=== PATIENT | male | born 1965 | race Caucasian/White ===

== ENCOUNTER 2018-06-23 17:10 | Inpatient (IN) | payer BC, OTHER ==
--- OUTSIDE RECORDS SUMMARY | 2018-06-23 17:14 | XMS REPORT | Continuity of Care Document ---
:1965 Author Organization Interface Problems Problem Status Onset Classification Date Comments Source Date Reported UNK Active 12/15/19 [facility] 18 K31.84 Active 12/13/19 [facility] 18 DX: Active 11/30/19 [facility] K21.9=GASTRO-ESOP 17 HAGEAL REFLUX DISEA Benign Active Problem 12/09/2016 [facility] hypertension Diabetes Active Problem 12/09/2016 [facility] Hiatal hernia Active Problem 12/09/2016 [facility] with GERD Hypothyroid Active Problem 12/09/2016 [facility] Rheumatoid Active Problem 12/09/2016 [facility] arthritis Final: 12/09/2016 [facility] Diaphragmatic hernia without obstruction or gangrene DIAPHRAGMATIC Active [facility] HERNIA WITHOUT OBSTRUCTION EPIGASTRIC PAIN Active [facility] GASTROPARESIS Active [facility] Medications Medication Details Route Status Patient Ordering Order Source Instructions Provider Date Morphine 4 mg, 1 mL, No Longer Route: IVP, Active 2016 [facility] Drug form: SOLN, Q4H, Dosing Weight 107.273, kg, PRN Pain Score 4-6, Start date: 12/05/16 10:42:00 CDT, Duration: 30 day, Stop date: 01/04/17 10:41:00 CDTNotes: (Same as:MORPhine Sulfate) valsartan 160 mg, 1 No Longer tab, Route: Active 2016 [facility] PO, Drug form: TAB, Daily, Dosing Weight 107.273, kg, Start date: 12/05/16 9:00:00 CDT, Duration: 30 day, Stop date: 01/03/17 9:00:00 CDTNotes: Same as Diovan pantoprazole 40 mg, 1 No Longer tab, Route: Active 2016 [facility] PO, Drug form: ECTAB, Daily, Dosing Weight 107.273, kg, Start date: 12/05/16 9:00:00 CDT, Duration: 30 day, Stop date: 01/03/17 9:00:00 CDTNotes: Tablet should not be chewed or crushed. (Same as: Protonix) Metoclopramide 5 5 mg, 1 tab, No Longer MG Oral Tablet Route: PO, Active 2016 [facility] Drug form: TAB, TID, Dosing Weight 107.273, kg, Start date: 12/05/16 9:00:00 CDT, Duration: 30 day, Stop date: 01/03/17 17:00:00 CDTNotes: (Same as: Reglan) Take 30 min before meals heparin 5,000 unit, No Longer 1 mL, Route: Active 2016 [facility] SUB-Q, Drug form: INJ, Q12H, Dosing Weight 106.563, kg, Start date: 12/05/16 9:00:00 CDT, Duration: 30 day, Stop date: 01/03/17 21:00:00 CDTNotes: porcine heparin gabapentin 800 800 mg, 2 No Longer MG Oral Tablet cap, Route: Active 2016 [facility] PO, Drug form: CAP, TID, Dosing Weight 107.273, kg, Start date: 12/05/16 9:00:00 CDT, Duration: 30 day, Stop date: 01/03/17 17:00:00 CDTNotes: (Same as: Neurontin) Folic Acid 1 mg, 1 tab, No Longer Route: PO, Active 2016 [facility] Drug form: TAB, Daily, Dosing Weight 107.273, kg, Start date: 12/05/16 9:00:00 CDT, Duration: 30 day, Stop date: 01/03/17 9:00:00 CDTNotes: (Same as: Folvite) carvedilol 25 mg, 2 No Longer tab, Route: Active 2016 [facility] PO, Drug form: TAB, BID, Dosing Weight 107.273, kg, Start date: 12/05/16 9:00:00 CDT, Duration: 30 day, Stop date: 01/03/17 17:00:00 CDTNotes: Give with food. (Same As: Coreg) Albuterol 0.833 3 ml, Route: No Longer MG/ML / NEB, Drug Active 2016 [facility] Ipratropium Form: SOLN, [place] 0.167 Dosing MG/ML Inhalant Weight Solution 107.273, kg, RQ6H, Start date: 12/05/16 8:00:00 CDT, Duration: 30 day, Stop date: 01/04/17 2:00:00 CDTNotes: (Same as: Duoneb) Acetaminophen 24 15 mL, No Longer MG/ML / Codeine Route: PO, Active 2016 [facility] Phosphate 2.4 Drug Form: MG/ML Oral LIQ, Dosing Solution Weight 107.273, kg, Q4H, PRN Pain Score 4-6, Start date: 12/05/16 7:06:00 CDT, Duration: 30 day, Stop date: 01/04/17 7:05:00 CDTNotes: (acetaminoph en-codeine 120-12 mg/5 ml oral liq) Do not exceed 4gm/day of acetaminophe n. (Same as: Tylenol w/Codeine) Thyroxine 200 No Longer microgram, 1 Active 2016 [facility] tab, Route: PO, Drug form: TAB, Daily, Dosing Weight 107.273, kg, Start date: 12/05/16 6:30:00 CDT, Duration: 30 day, Stop date: 01/03/17 6:30:00 CDTNotes: Take 1 hour before or 2 hours after meal; Enteral feeds may interefere with the absorption of this medication. (Same as: Levothroid) Hydralazine 25 mg, 1 No Longer Hydrochloride 25 tab, Route: Active 2016 [facility] Oral Tablet PO, Drug form: TAB, BID, Dosing Weight 107.273, kg, Start date: 12/05/16 5:10:00 CDT, Duration: 30 day, Stop date: 01/03/17 17:00:00 CDTNotes: (Same as: Apresoline) May interfere w/enteral feedings Take With Food. Cefoxitin 2 gm, Route: No Longer IVPB, Q8H, Active 2016 [facility] Dosing Weight 106.563, kg, Start date: 12/04/16 21:00:00 CDT, Duration: 1 day, Stop date: 12/05/16 13:00:00 CDT, ABX Indication: Surgical ProphylaxisN otes: (Same As: Mefoxin) MEDICATION WASTE Product Size: 2000 mg Product Wasted: ___ mg rosuvastatin 10 mg, 2 No Longer tab, Route: Active 2016 [facility] PO, Drug form: TAB, Bedtime, Dosing Weight 107.273, kg, Start date: 12/04/16 21:00:00 CDT, Duration: 30 day, Stop date: 01/02/17 21:00:00 CDTNotes: Same as Crestor Morphine 4 mg, 1 mL, No Longer Route: IVP, Active 2016 [facility] Drug form: SOLN, Q3H, Dosing Weight 106.563, kg, PRN Pain Score 7-10, Start date: 12/04/16 19:56:00 CDT, Duration: 30 day, Stop date: 01/03/17 19:55:00 CDTNotes: (Same as:MORPhine Sulfate) D5W 1/2NS 1,000 1,000 mL, No Longer mL Rate: 75 Active 2016 [facility] ml/hr, Infuse over: 13.3 hr, Route: IV, Dosing Weight 107.273 kg, Total Volume: 1,000, Start date: 12/04/16 19:55:00 CDT, Duration: 30 day, Stop date: 01/03/17 19:54:00 CDT Dextrose 50% 25 gm, 50 No Longer Syringe mL, Route: Active 2016 [facility] IVP, Drug Form: INJ, Dosing Weight 107.273, kg, Q4H, PRN Other -See Comment, Start date: 12/04/16 18:14:00 CDT, Duration: 30 day, Stop date: 01/03/17 18:13:00 CDT sodium chloride 1,000 mL, Inactive 0.9% 1000 ml INJ Rate: 75 2016 [facility] 1,000 mL ml/hr, Infuse over: 13.3 hr, Route: IV, Dosing Weight 106.563 kg, Total Volume: 1,000, Start date: 12/04/16 18:04:00 CDT, Duration: 30 day, Stop date: 01/03/17 18:03:00 CDT Magnesium 2 gm, 50 mL, Inactive Sulfate Route: IVPB, 2016 Drug form: INJ, ONCE, Dosing Weight 106.563, kg, Total dose=2 gm, Start date: 12/04/16 16:45:00 CDT, Duration: 1 doses or times, Stop date: 12/04/16 16:45:00 CDTNotes: WASTE: F/P - Sink; E - [employer] Morphine 4 mg, 1 mL, Inactive Route: IVP, 2016 [facility] Drug form: SOLN, Q4H, Dosing Weight 106.563, kg, PRN Pain Score 7-10, Start date: 12/04/16 16:42:00 CDT, Duration: 30 day, Stop date: 01/03/17 16:41:00 CDTNotes: (Same as:MORPhine Sulfate) midazolam (ANES) Route: IV, Inactive Drug form: 2016 [facility] SOLN, ONCE, Stop date: 12/04/16 15:32:00 CDT hydromorphone Route: IV, Inactive (ANES) Drug form: 2016 [facility] INJ, ONCE, Stop date: 12/04/16 15:11:00 CDT glycopyrrolate Route: IV, Inactive (ANES) Drug form: 2016 [facility] INJ, ONCE, Stop date: 12/04/16 15:11:00 CDT neostigmine Route: IV, Inactive (ANES) Drug form: 2016 [facility] INJ, ONCE, Stop date: 12/04/16 15:11:00 CDT acetaminophen Route: IV, Inactive (ANES) Drug form: 2016 [facility] INJ, ONCE, Stop date: 12/04/16 14:51:00 CDT Albuterol 0.833 3 mL, Route: Inactive MG/ML / NEB, Dosing 2016 [facility] Ipratropium Weight [place] 0.167 106.563, kg, MG/ML Inhalant ONCE, STAT, Solution Start date: 12/04/16 14:26:00 CDT, Stop date: 12/04/16 14:26:00 CDT Calcium Chloride 1,000 mL, Inactive 0.0014 MEQ/ML / Rate: 25 2016 [facility] Potassium ml/hr, Chloride 0.004 Infuse over: MEQ/ML / Sodium 40 hr, Chloride 0.103 Route: IV, MEQ/ML / Sodium Dosing Lactate 0.028 Weight MEQ/ML 106.563 kg, Injectable Total Solution Volume: 1,000, Start date: 12/04/16 14:26:00 CDT, Duration: 30 day, Stop date: 01/03/17 14:25:00 CDT metoclopramide Route: IV, Inactive (ANES) Drug form: 2016 [facility] INJ, ONCE, Stop date: 12/04/16 13:37:00 CDT propofol (ANES) Route: IV, Inactive Drug form: 2016 [facility] INJ, ONCE, Stop date: 12/04/16 13:37:00 CDT fentaNYL (ANES) Route: IV, Inactive Drug form: 2016 [facility] INJ, ONCE, Stop date: 12/04/16 13:37:00 CDT midazolam (ANES) Route: IV, Inactive Drug form: 2016 [facility] SOLN, ONCE, Stop date: 12/04/16 13:37:00 CDT ondansetron Route: IV, Inactive (ANES) Drug form: 2016 [facility] INJ, ONCE, Stop date: 12/04/16 13:01:00 CDT cefOXitin (ANES) Route: IV, Inactive Drug form: 2016 [facility] INJ, ONCE, Stop date: 12/04/16 13:01:00 CDT lidocaine (ANES) Route: IV, Inactive Drug form: 2016 [facility] INJ, ONCE, Stop date: 12/04/16 13:01:00 CDT rocuronium Route: IV, Inactive (ANES) Drug form: 2016 [facility] INJ, ONCE, Stop date: 12/04/16 13:01:00 CDT sodium chloride Route: IV, Inactive 0.9% 1000 ml INJ Total 2016 [facility] (ANES) Volume: 1,000, Start date: 12/04/16 12:40:00 CDT, Stop date: 12/04/16 13:40:00 CDT LR 1000 mL INJ Route: IV, Inactive (ANES) Total 2016 [facility] Volume: 1,000, Start date: 12/04/16 12:26:00 CDT, Stop date: 12/04/16 13:26:00 CDT Insulin regular 5 unit, Inactive Route: IVP, 2016 [facility] ONCE, Dosing Weight 106.563, kg, Start date: 12/04/16 11:56:00 CDT, Stop date: 12/04/16 11:56:00 CDT Insulin regular 5 unit, Inactive Route: IVP, 2016 [facility] ONCE, Dosing Weight 106.563, kg, Start date: 12/04/16 11:19:00 CDT, Stop date: 12/04/16 11:19:00 CDT heparin sodium, 5,000 unit, Inactive porcine 2500 Route: 2016 UNT/ML SUB-Q, Drug Injectable form: INJ, Solution PRE OP, Dosing Weight 106.563, kg, Start date: 12/04/16 11:00:00 CDT 3 ML Insulin 5 unit, Active Lispro 100 SUB-Q, 2016 UNT/ML Pen TID-Before Injector Meals, # 3 [Humalog] mL, 0 Refill(s) valsartan 320 mg 160 mg=0.5 Active oral tablet tab, PO, 2016 Daily, # 30 tab, 0 Refill(s) Hydralazine 25 mg=1 tab, Active Hydrochloride 25 PO, BID, # 2016 [facility] Oral Tablet 90 tab, 3 Refill(s) carvedilol 25 mg 25 mg=1 tab, Active oral tablet PO, BID, # 2016 180 tab, 0 Refill(s) pantoprazole 40 40 mg=1 tab, Active mg oral enteric PO, Daily, # 2016 [facility] coated tablet 30 tab, 0 Refill(s) Metoclopramide 5 5 mg=1 tab, Active MG Oral Tablet PO, TID, # 2016 28 tab, 0 Refill(s) levothyroxine 200 Active 200 mcg (0.2 mg) microgram=1 2016 [facility] oral tablet tab, PO, Daily, # 30 tab, 0 Refill(s) rosuvastatin 10 10 mg=1 tab, Active mg oral tablet PO, Bedtime, 2016 # 30 tab, 0 Refill(s) ondansetron 4 mg 4 mg=1 tab, Active 11/30/ [facility] oral tablet PO, TID, # 3 2016 tab, 0 Refill(s) Folic Acid 1 MG 1 mg=1 tab, Active 11/30/ [facility] Oral Tablet PO, Daily, # 2017 30 tab, 0 Refill(s) gabapentin 800 800 mg=1 Active 11/30/ [facility] MG Oral Tablet tab, PO, 2016 TID, # 270 tab, 0 Refill(s) methotrexate 2.5 15 mg=6 tab, Active 11/30/ [facility] mg oral tablet PO, Q7D, # 2 2016 tab, 0 Refill(s) etanercept 25 mg 25 mg=1 ea, Active 11/30/ [facility] subcutaneous SUB-Q, 5X 2016 [facility] injection Day, # 12 ea, 0 Refill(s) Allergies, Adverse Reactions, Alerts Substance Category Reaction Severity Reaction Status Date Comments Source type Reported sulfa drugs Assertion Drug Active allergy [facility] Immunizations Immunization Date Given Site Status Last Updated Comments Source Results Order Name Results Value Reference Date Interpretation Comments Source Range Stomach Stomach Patient Name: DARCY SOTO 12/17 - emptying emptying [facility] - [facility] : 1965; Age: 52 years y/o Male MR: [id number] Read by: Christiano Rojas MD Dictated Date/time: 12/17/17 13:07 Electronically Signed by: Christiano Rojas MD 12/17/17 13:12 FINAL REPORT Study: Stomach emptying [facility] 12/17/2017 8:14 AM CDT Ordering Physician: Jordyn Fletcher MD Clinical Indication: - nausea with vomiting; Comparison: None Nuclear medicine gastric emptying study was performed. Oral administration 1 mCi technetium 99m sulfur colloid in eggs. Anterior nuclear imaging of the upper abdomen was performed for 4 hours post oral intake of radiotracer. The time/activity curve of gastric activity is entirely flat over 4 hours. Only minimal small bowel activity is visualized on the nuclear images during the observation period. IMPRESSION: Severely delayed gastric emptying. SL: [id number] CHEM PANEL eGFR 102 12/06 Result Comment: The eGFR is calculated using the CKD-EPI formula. In most young, healthy individuals the eGFR will be >90 mL/ min/1.73m2. The eGFR declines with age. An eGFR of 60-89 may be normal in [facility] mL/min/1.7 /2017 some populations, particularly the elderly, for whom the CKD-EPI formula has not been extensively validated. Use of the eGFR is not recommended in the following populations: [facility] 3m2 Individuals with unstable creatinine concentrations, including patients and those with serious co-morbid conditions. Patients with extremes in muscle mass or diet. The data above are obtained from the National Kidney Disease Education Program (NKDEP) which additionally recommends that when the eGFR is used in patients with extremes of body mass index for purposes of drug dosing, the eGFR should be multiplied by the estimated BMI. CHEM PANEL Bili Total 2.1 mg/dL 0.2 - 1.3 12/06 [facility] CHEM PANEL A/G Ratio 0.9 0.7 - 1.6 12/06 [facility] CHEM PANEL Alk Phos 77 unit/L 39 - 136 12/06 [facility] CHEM PANEL AST 39 unit/L 0 - 37 12/06 [facility] CHEM PANEL ALT 52 unit/L 0 - 65 12/06 [facility] CHEM PANEL Albumin Lvl 3.1 g/dL 3.5 - 5.0 12/06 [facility] CHEM PANEL Globulin 3.6 g/dL 2.7 - 4.2 12/06 [facility] CHEM PANEL Total 6.7 g/dL 6.4 - 8.4 12/06 [facility] CHEM PANEL B/C Ratio 16 6 - 25 12/06 [facility] CHEM PANEL AGAP 11.9 meq/L 10.0 - 12/06 [facility] 20.0 [facility] CHEM PANEL Potassium 3.9 meq/L 3.5 - 5.1 12/06 Lvl [facility] CHEM PANEL CO2 27 meq/L 24 - 32 12/06 [facility] CHEM PANEL Calcium Lvl 8.3 mg/dL 8.5 - 10.5 12/06 [facility] CHEM PANEL Glucose Lvl 262 mg/dL 70 - 99 12/06 [facility] CHEM PANEL BUN 13 mg/dL 7 - 22 12/06 [facility] CHEM PANEL Chloride Lvl 99 meq/L 95 - 109 12/06 [facility] CHEM PANEL Sodium Lvl 134 meq/L 135 - 145 12/06 [facility] CHEM PANEL Creatinine 0.83 mg/dL 0.50 - 12/06 [facility] Lvl 1.40 /2016 [facility] HEMATOLOGY MPV 8.1 fL 7.4 - 10.4 12/06 /2016 [facility] HEMATOLOGY Platelet 159 K/CMM 133 - 450 12/06 [facility] HEMATOLOGY RDW 13.7 % 11.5 - 12/06 [facility] 14.5 /2016 [facility] HEMATOLOGY RBC 4.17 M/CMM 4.70 - 12/06 [facility] 6.10 /2016 [facility] HEMATOLOGY WBC 10.2 K/CMM 3.7 - 10.4 12/06 [facility] HEMATOLOGY Hgb 13.1 g/dL 14.0 - 12/06 [facility] 18.0 /2016 [facility] HEMATOLOGY MCHC 34.9 g/dL 32.0 - 12/06 [facility] 36.0 /2016 [facility] MCH 31.5 pg 27.0 - 12/06 [facility] 31.0 [facility] HEMATOLOGY MCV 90.2 fL 80.0 - 12/06 [facility] 94.0 /2016 [facility] HEMATOLOGY Hct 37.6 % 42.0 - 12/06 MH 54.0 /2016 [facility] HEMATOLOGY Segs-Bands # 7.0 K/CMM 1.5 - 8.1 12/06 /2016 [facility] HEMATOLOGY Lymphocytes 1.9 K/CMM 1.0 - 5.5 12/06 MH # /2016 [facility] HEMATOLOGY Monocytes # 1.2 K/CMM 0.0 - 0.8 12/06 [facility] HEMATOLOGY Eosinophils 0.1 K/CMM 0.0 - 0.5 12/06 [facility] # /2016 [facility] HEMATOLOGY Basophils 0.3 % 0.0 - 1.0 12/06 [facility] HEMATOLOGY Eosinophils 0.6 % 0.0 - 4.0 12/06 [facility] HEMATOLOGY Monocytes 12.2 % 2.0 - 12.0 12/06 [facility] HEMATOLOGY Lymphocytes 18.4 % 20.0 - 12/06 [facility] 40.0 /2016 [facility] HEMATOLOGY Segs 68.5 % 45.0 - 12/06 75.0 [facility] Chest Chest 1view Portable chest: Mild bilateral subsegmental atelectasis is unchanged compared to the previous day. The lungs and pleural spaces are otherwise clear. There are no other new findings. 12/06 - 1view DX DX /2016 - [facility] [id number] Read by: Rojelio Finnegan MD Dictated Date/time: 12/06/16 07:47 Electronically Signed by: Rojelio Finnegan MD 12/06/16 07:48 FINAL REPORT CHEM PANEL A/G Ratio 0.9 0.7 - 1.6 12/05 [facility] CHEM PANEL Globulin 3.6 g/dL 2.7 - 4.2 12/05 [facility] CHEM PANEL B/C Ratio 13 6 - 25 12/05 [facility] CHEM PANEL AGAP 8.9 meq/L 10.0 - 12/05 [facility] 20.0 [facility] CHEM PANEL eGFR 70 12/05 Result Comment: The eGFR is calculated using the CKD-EPI formula. In most young, healthy individuals the eGFR will be >90 mL/ min/1.73m2. The eGFR declines with age. An eGFR of 60-89 may be normal in mL/min/1.7 /2016 some populations, particularly the elderly, for whom the CKD-EPI formula has not been extensively validated. Use of the eGFR is not recommended in the following populations: [facility] 3m2 Individuals with unstable creatinine concentrations, including patients and those with serious co-morbid conditions. Patients with extremes in muscle mass or diet. The data above are obtained from the National Kidney Disease Education Program (NKDEP) which additionally recommends that when the eGFR is used in patients with extremes of body mass index for purposes of drug dosing, the eGFR should be multiplied by the estimated BMI. CHEM PANEL AST 36 unit/L 0 - 37 12/05 [facility] CHEM PANEL Alk Phos 83 unit/L 39 - 136 12/05 [facility] CHEM PANEL ALT 38 unit/L 0 - 65 12/05 [facility] CHEM PANEL Total 6.7 g/dL 6.4 - 8.4 12/05 [facility] CHEM PANEL Calcium Lvl 7.9 mg/dL 8.5 - 10.5 12/05 [facility] CHEM PANEL Albumin Lvl 3.1 g/dL 3.5 - 5.0 12/05 [facility] CHEM PANEL Bili Total 1.3 mg/dL 0.2 - 1.3 12/05 [facility] CHEM PANEL Sodium Lvl 138 meq/L 135 - 145 12/05 [facility] CHEM PANEL Potassium 3.9 meq/L 3.5 - 5.1 12/05 [facility] CHEM PANEL CO2 29 meq/L 24 - 32 12/05 [facility] CHEM PANEL Chloride Lvl 104 meq/L 95 - 109 12/05 [facility] CHEM PANEL Glucose Lvl 119 mg/dL 70 - 99 12/05 [facility] CHEM PANEL Creatinine 1.20 mg/dL 0.50 - 12/05 [facility] Lvl 1.40 /2016 [facility] CHEM PANEL BUN 16 mg/dL 7 - 22 12/05 [facility] HEMATOLOGY MCV 91.6 fL 80.0 - 12/05 MH 94.0 /2016 [facility] HEMATOLOGY MCH 31.1 pg 27.0 - 12/05 MH 31.0 [facility] HEMATOLOGY RDW 14.0 % 11.5 - 12/05 MH 14.5 [facility] HEMATOLOGY MCHC 34.0 g/dL 32.0 - 12/05 [facility] 36.0 /2016 [facility] HEMATOLOGY MPV 8.4 fL 7.4 - 10.4 12/05 [facility] HEMATOLOGY Hgb 13.7 g/dL 14.0 - 12/05 MH 18.0 [facility] HEMATOLOGY RBC 4.41 M/CMM 4.70 - 12/05 MH 6.10 [facility] HEMATOLOGY Hct 40.4 % 42.0 - 12/05 [facility] 54.0 /2016 [facility] HEMATOLOGY WBC 9.1 K/CMM 3.7 - 10.4 12/05 [facility] HEMATOLOGY Platelet 165 K/CMM 133 - 450 12/05 [facility] HEMATOLOGY Lymphocytes 17.8 % 20.0 - 12/05 MH 40.0 [facility] HEMATOLOGY Segs 68.7 % 45.0 - 12/05 MH 75.0 [facility] HEMATOLOGY Segs-Bands # 6.3 K/CMM 1.5 - 8.1 12/05 [facility] HEMATOLOGY Monocytes 11.9 % 2.0 - 12.0 12/05 [facility] HEMATOLOGY Eosinophils 1.2 % 0.0 - 4.0 12/05 [facility] HEMATOLOGY Basophils 0.4 % 0.0 - 1.0 12/05 [facility] HEMATOLOGY Eosinophils 0.1 K/CMM 0.0 - 0.5 12/05 [facility] HEMATOLOGY Monocytes # 1.1 K/CMM 0.0 - 0.8 12/05 [facility] HEMATOLOGY Lymphocytes 1.6 K/CMM 1.0 - 5.5 12/05 /2016 [facility] Chest Chest 1view Patient Name: DARCY SOTO 12/05 - 1view DX DX /2016 - [facility] : 1965; Age: 51 years Male MR: [id number] Read by: Adrián Meza MD Dictated Date/time: 12/05/16 12:35 Electronically Signed by: Adrián Meza MD 12/05/16 12:36 FINAL REPORT Study: Chest 1view DX Order Time: 12/05/2016 5:00 AM CDT Clinical Indication: - post op. COMPARISON: November 2016 x-rays. FINDINGS: Views: 1 LUNGS: There is normal lung volume. Right perihilar and infrahilar atelectasis. Left lower lobe atelectasis. Small left effusion. There is no pneumothorax. The pulmonary vasculature is normal. MEDIASTINUM: The cardiac silhouette is enlarged. The trachea is midline. BONES: There are no clinically significant osseous abnormalities noted. IMPRESSION: Right perihilar, left lower lobe atelectasis. SL: [id number] CHEM PANEL Magnesium 1.8 mg/dL 1.8 - 2.4 12/04 [facility] CHEM PANEL eGFR 63 12/04 Result Comment: The eGFR is calculated using the CKD-EPI formula. In most young, healthy individuals the eGFR will be >90 mL/ min/1.73m2. The eGFR declines with age. An eGFR of 60-89 may be normal in mL/min/1.2017 some populations, particularly the elderly, for whom the CKD-EPI formula has not been extensively validated. Use of the eGFR is not recommended in the following populations: [facility] 3m2 Individuals with unstable creatinine concentrations, including patients and those with serious co-morbid conditions. Patients with extremes in muscle mass or diet. The data above are obtained from the National Kidney Disease Education Program (NKDEP) which additionally recommends that when the eGFR is used in patients with extremes of body mass index for purposes of drug dosing, the eGFR should be multiplied by the estimated BMI. CHEM PANEL Chloride Lvl 106 meq/L 95 - 109 12/04 [facility] CHEM PANEL Sodium Lvl 138 meq/L 135 - 145 12/04 [facility] CHEM PANEL Potassium 3.9 meq/L 3.5 - 5.1 12/04 [facility] CHEM PANEL CO2 27 meq/L 24 - 32 12/04 [facility] CHEM PANEL Calcium Lvl 7.8 mg/dL 8.5 - 10.5 12/04 [facility] CHEM PANEL BUN 16 mg/dL 7 - 22 12/04 [facility] CHEM PANEL Creatinine 1.30 mg/dL 0.50 - 12/04 [facility] Lvl 1.40 /2016 [facility] CHEM PANEL Glucose Lvl 103 mg/dL 70 - 99 12/04 [facility] CHEM PANEL AGAP 8.9 meq/L 10.0 - 12/04 20.0 [facility] HEMATOLOGY Basophils # 0.1 K/CMM 0.0 - 0.2 12/04 [facility] HEMATOLOGY Eosinophils 1.2 % 0.0 - 4.0 12/04 [facility] HEMATOLOGY Monocytes 11.1 % 2.0 - 12.0 12/04 [facility] HEMATOLOGY Lymphocytes 23.6 % 20.0 - 12/04 40.0 [facility] HEMATOLOGY Segs-Bands # 5.1 K/CMM 1.5 - 8.1 12/04 [facility] HEMATOLOGY Monocytes # 0.9 K/CMM 0.0 - 0.8 12/04 [facility] HEMATOLOGY Lymphocytes 1.9 K/CMM 1.0 - 5.5 12/04 [facility] HEMATOLOGY Eosinophils 0.1 K/CMM 0.0 - 0.5 12/04 [facility] HEMATOLOGY Basophils 0.8 % 0.0 - 1.0 12/04 [facility] HEMATOLOGY Segs 63.3 % 45.0 - 12/04 75.0 [facility] HEMATOLOGY MCHC 33.7 g/dL 32.0 - 12/04 MH 36.0 [facility] HEMATOLOGY MPV 7.8 fL 7.4 - 10.4 12/04 [facility] HEMATOLOGY Platelet 182 K/CMM 133 - 450 12/04 [facility] HEMATOLOGY RDW 13.8 % 11.5 - 12/04 MH 14. [facility] HEMATOLOGY MCH 31.2 pg 27.0 - 12/04 31.0 [facility] HEMATOLOGY MCV 92.5 fL 80.0 - 12/04 94.0 [facility] HEMATOLOGY Hgb 12.9 g/dL 14.0 - 12/04 18.0 [facility] HEMATOLOGY Hct 38.4 % 42.0 - 12/04 MH 54.0 [facility] HEMATOLOGY RBC 4.15 M/CMM 4.70 - 12/04 6.10 [facility] HEMATOLOGY WBC 8.1 K/CMM 3.7 - 10.4 12/04 [facility] Chest Chest 1view Study: Chest 1view DX portable 12/04/2016 1539 hours - 1view DX DX /2016 - [facility] Clinical Indication: Shortness of Breath - post-op; Read by: Sherwin Adkins MD Dictated Date/time: 12/04/16 16:13 Comparison: Chest 11/30/2016 Electronically Signed by: Sherwin Adkins MD 12/04/16 16:14 FINAL REPORT FINDINGS: Image quality is compromised by the large patient size. Image projection is lordotic. Nasogastric tube terminates in the proximal stomach. The cardiac silhouette is top normal in size. The lungs are well-expanded. No infiltrate, vascular congestion or pleural effusion is seen. IMPRESSION: No acute abnormality. SL: [id number] BLOOD BANK ABO/Rh O POS 11/30 RESULTS /2016 [facility] BLOOD BANK Antibody Negative 11/30 RESULTS Scrn /2016 [facility] (11/30/16 9:13 AM) CHEM PANEL A/G Ratio 1.0 0.7 - 1.6 11/30 [facility] CHEM PANEL Globulin 3.7 g/dL 2.7 - 4.2 11/30 [facility] CHEM PANEL B/C Ratio 15 6 - 25 11/30 [facility] CHEM PANEL Bili Total 0.9 mg/dL 0.2 - 1.3 11/30 [facility] CHEM PANEL Albumin Lvl 3.7 g/dL 3.5 - 5.0 11/30 [facility] CHEM PANEL ALT 29 unit/L 0 - 65 11/30 [facility] CHEM PANEL AST 14 unit/L 0 - 37 11/30 [facility] CHEM PANEL Alk Phos 78 unit/L 39 - 136 11/30 [facility] CHEM PANEL Total 7.4 g/dL 6.4 - 8.4 11/30 [facility] HEMATOLOGY PTT 29.2 s 22.9 - 11/30 MH 35.8 [facility] HEMATOLOGY PT 13.0 s 12.0 - 11/30 14.7 [facility] HEMATOLOGY INR 0.96 0.85 - 11/30 1. [facility] URINE AND UA Color Ltyellow 11/30 [facility] URINE AND UA <=1.0 0.1 - 1.0 11/30 STOOL Urobilinogen mg/dL [facility] URINE AND UA Mucus Few /LPF None Seen 11/30 STOOL /LPF [facility] URINE AND UA RBC 2 /HPF 0 - 2 11/30 [facility] URINE AND UA Sq Epi None Seen 11/30 [facility] URINE AND UA Leuk Est Trace Negative 11/30 [facility] *ABN* (11/30/16 9:13 AM) URINE AND UA Nitrite Negative Negative 11/30 [facility] (11/30/16 9:13 AM) URINE AND UA WBC 3 /HPF 0 - 5 11/30 [facility] URINE AND UA Glucose 500 mg/dL Negative 11/30 STOOL mg/dL [facility] URINE AND UA Ketones Negative Negative 11/30 [facility] mg/dL mg/dL [facility] URINE AND UA Blood Negative Negative 11/30 [facility] (11/30/16 9:13 AM) URINE AND UA Bili Negative Negative 11/30 [facility] *NA* (11/30/16 9:13 AM) URINE AND UA pH 5.0 5.0 - 8.0 11/30 [facility] URINE AND UA Spec Grav 1.017 <=1.030 11/30 [facility] URINE AND UA Protein Negative Negative 11/30 [facility] mg/dL mg/dL [facility] URINE AND UA Turbidity Clear Clear 11/30 [facility] (11/30/16 9:13 AM) Barium Barium Barium Swallow w Esophagus Function DX 11/30 - Swallow w Swallow - [facility] Esophagus Esophagus Function Function DX DX COMPARISON: None Read by: Dimitry Rodrigues MD Dictated Date/time: 11/30/16 16:19 Electronically Signed by: Dimitry Rodrigues MD 11/30/16 16:25 FINAL REPORT CLINICAL HISTORY: fl time 1.9 min, dose 41.161 Gycm2, DR. Rodrigues - K21.9 Gastro-esophageal reflux disease without esophagitis;K44.9 Diaphragmatic hernia without obstruction or gangrene;R13.10 Dysphagia, unspecified;R10.13 Epigastric pain. TECHNIQUE: Thin barium was utilized for recumbent prone oblique and LPO images. Thick barium was utilized for upright imaging of the esophagus and pharynx. Granola bar mixed with barium was given to evaluate motility with solids. FINDINGS: There is no delay in passage of the barium bolus from the pharynx into the esophagus. The cricopharyngeus relaxes normally. There is no evidence for cricopharyngeal bar or Zenker's diverticulum. Prone and LPO images of the esophagus reveal moderate to large type III hiatal hernia with paraesophageal component. Essentially the entire fundus is intrathoracic in location. Craniocaudal length of th e hernia is estimated at 9 cm. There is no significant delay in passage of barium from the esophagus to the stomach. Upright images with thin barium reveal no significant dysmotility. Hernia persists on the upright images. Gastroesophageal reflux. Subsequently 2 separate swallows of a small piece of granola bar and barium were fluoroscopically followed through the length of the esophagus. There is no significant delay in passage of both solid wilbert uses from the pharynx to the esophagus and subsequently into the stomach. Overhead image performed at the conclusion of the procedure reveals prompt passage of the barium from the stomach into the small bowel. IMPRESSION: Moderate to large type III hiatal hernia with paraesophageal component is visualized. Gastroesophageal reflux. No significant esophageal dysmotility. SL: [id number] Chest 2 Chest 2 PA and lateral chest: There is a small soft tissue opacity in the lower retrocardiac region corresponding to a hiatal hernia demonstrated on the earlier esophagram. The cardiomediastinal silhouette, pul 11/30 views DX views DX monary vasculature and ramana are otherwise within normal limits. The lungs and pleural spaces are clear. There are no significant osseous abnormalities. Read by: Rojelio Finnegan MD IMPRESSION: Dictated Date/time: 11/30/16 12:12 Electronically Signed by: Rojelio Finnegan MD 11/30/16 12:13 FINAL REPORT Small hiatal hernia without other acute radiographic abnormalities in the chest. [id number] Vital Signs Vital Sign Value Date Comments Source Respitory Rate 18 12/06/2016 [facility] Heart Rate 78 12/06/2016 [facility] Systolic (mm Hg) 158 12/06/2016 [facility] Diastolic (mm Hg) 89 12/06/2016 [facility] Temperature Oral (F) 98.7 F 12/06/2016 [facility] Heart Rate 71 12/06/2016 [facility] Temperature Oral (F) 98.5 F 12/06/2016 [facility] Systolic (mm Hg) 136 12/06/2016 [facility] Diastolic (mm Hg) 82 12/06/2016 [facility] Respitory Rate 18 12/06/2016 [facility] Systolic (mm Hg) 114 12/06/2016 [facility] Diastolic (mm Hg) 70 12/06/2016 [facility] Respitory Rate 18 12/06/2016 [facility] Heart Rate 77 12/06/2016 [facility] Temperature Oral (F) 98.4 F 12/06/2016 [facility] BMI Calculated 35.96 12/04/2016 [facility] Weight 107.273 12/04/2016 [facility] Height 172.72 cm 12/04/2016 [facility] Height 172.72 cm 11/30/2016 [facility] BMI Calculated 35.72 11/30/2016 [facility] Weight 106.563 11/30/2016 [facility] Encounters Location Location Encounter Encounter Reason Attending ADM DC Status Source Details Type Number For Provider Date Date Visit [facility] Outpatient [id number] [facility] 11/30 12/01 [facility] [id number] [facility] 12/04 12/06 [facility] Procedures Procedure Code Date Perfomer Comments Source Open reduction and [id number] [facility] internal fixation of 2 fracture Catheterization of [id number] [facility] both left and right 1 heart Colonoscopy [id number] [facility] Operation [id number] [facility]
--- OUTSIDE RECORDS SUMMARY | 2018-06-23 17:15 | XMS REPORT | Summary of Care ---
:1965 Author Organization [facility] Address [address] [place], [place] [address]- Encounter HQ Encntr_moncho(FIN) [id number] Date(s): 12/04/16 - 12/06/16 [facility] [address] [place] [address]- Final: Diaphragmatic hernia without obstruction or gangrene Discharge Disposition: Home or Self Care Attending Physician: Jordyn Fletcher MD Admitting Physician: Jordyn Fletcher MD Referring Physician: Jordyn Fletcher MD Vital Signs Most recent to oldest 1 2 3 [Reference Range]: Height 172.72 cm 172.72 cm (12/04/16 6:06 PM) (11/30/16 9:08 AM) Temperature Oral [96.4-99.1 98.7 DegF 98.5 DegF 98.4 DegF DegF] (12/06/16 4:13 PM) (12/06/16 12:16 PM) (12/06/16 7:40 AM) Blood Pressure [90-140/60-90 158/89 mmHg 136/82 mmHg 114/70 mmHg mmHg] *HI* (12/06/16 12:16 PM) (12/06/16 7:40 AM) (12/06/16 4:13 PM) Respiratory Rate [14-20 BRMIN] 18 BRMIN 18 BRMIN 18 BRMIN (12/06/16 4:13 PM) (12/06/16 12:16 PM) (12/06/16 7:40 AM) Peripheral Pulse Rate [60-100 78 bpm 71 bpm 77 bpm bpm] (12/06/16 4:13 PM) (12/06/16 12:16 PM) (12/06/16 7:40 AM) Weight 107.273 kg 106.563 kg (12/04/16 6:06 PM) (11/30/16 9:08 AM) Body Mass Index 35.96 m2 35.72 m2 (12/04/16 6:06 PM) (11/30/16 9:08 AM) Problem List Condition Effective Dates Status Health Status Informant Benign hypertension(Confirmed) Active Diabetes(Confirmed) Active Hiatal hernia with GERD(Confirmed) Active Hypothyroid(Confirmed) Active Rheumatoid arthritis(Confirmed) Active Allergies, Adverse Reactions, Alerts Substance Reaction Severity Status sulfa drugs Active Medications acetaminophen (ANES) Route: IV, Drug form: INJ, ONCE, Stop date: 12/04/16 14:51:00 CDT Start Date: 12/04/16 Stop Date: 12/04/16 Status: Completedacetaminophen-codeine 120 mg-12 mg/5 mL oral liquid 15 mL, Route: PO, Drug Form: LIQ, Dosing Weight 107.273, kg, Q4H, PRN Pain Score 4-6, Start date: 12/05/16 7:06:00 CDT, Duration: 30 day, Stop date: 7:05:00 CDT Notes: (acetaminophen-codeine 120-12 mg/5 ml oral liq) Do not exceed 4gm/day of acetaminophen. (Same as: Tylenol w/Codeine) Start Date: 12/05/16 Stop Date: 12/06/16 Status: Discontinuedalbuterol-ipratropium 2.5-0.5 mg inhalation solution 3 mL, Route: NEB, Dosing Weight 106.563, kg, ONCE, STAT, Start date: 12/04/16 14 :26:00 CDT, Stop date: 12/04/16 14:26:00 CDT Start Date: 12/04/16 Stop Date: 12/04/16 Status: Discontinuedalbuterol-ipratropium 2.5-0.5 mg inhalation solution 3 ml, Route: NEB, Drug Form: SOLN, Dosing Weight 107.273, kg, RQ6H, Start date: 12/05/16 8:00:00 CDT, Duration: 30 day, Stop date: 01/04/17 2:00:00 CDT Notes: (Same as: Duoneb) Start Date: 12/05/16 Stop Date: 12/06/16 Status: Discontinuedcarvedilol 25 mg, 2 tab, Route: PO, Drug form: TAB, BID, Dosing Weight 107.273, kg, Start date: 12/05/16 9:00:00 CDT, Duration: 30 day, Stop date: 01/03/17 17:00:00 CDT Notes: Give with food. (Same As: Coreg) Start Date: 12/05/16 Stop Date: 12/06/16 Status: Discontinuedcarvedilol 25 mg oral tablet 25 mg=1 tab, PO, BID, # 180 tab, 0 Refill(s) Start Date: 11/30/16 Status: OrderedcefOXitin (ANES) Route: IV, Drug form: INJ, ONCE, Stop date: 12/04/16 13:01:00 CDT Start Date: 12/04/16 Stop Date: 12/04/16 Status: CompletedcefOXitin + sodium chloride 0.9% INJ 100 mL 2 gm, Route: IVPB, Q8H, Dosing Weight 106.563, kg, Start date: 12/04/16 21:00: 00 CDT, Duration: 1 day, Stop date: 12/05/16 13:00:00 CDT, ABX Indication: Surgical Prophylaxis Notes: (Same As: Mefoxin) MEDICATION WASTE Product Size: 2000 mgProduct Wasted: ___ mg Start Date: 12/04/16 Stop Date: 12/05/16 Status: [id number] 1/2NS 1,000 mL 1,000 mL, Rate: 75 ml/hr, Infuse over: 13.3 hr, Route: IV, Dosing Weight 107.273 kg, Total Volume: 1,000, Start date: 12/04/16 19:55:00 CDT, Duration: 30 day, Stop date: 01/03/17 19:54:00 CDT Start Date: 12/04/16 Stop Date: 12/06/16 Status: DiscontinuedDextrose 50% Syringe 25 gm, 50 mL, Route: IVP, Drug Form: INJ, Dosing Weight 107.273, kg, Q4H, PRN Other -See Comment, Start date: 12/04/16 18:14:00 CDT, Duration: 30 day, Stop date: 01/03/17 18:13:00 CDT Start Date: 12/04/16 Stop Date: 12/06/16 Status: Discontinuedetanercept 25 mg subcutaneous injection 25 mg=1 ea, SUB-Q, 5X Day, # 12 ea, 0 Refill(s) Start Date: 11/30/16 Status: OrderedfentaNYL (ANES) Route: IV, Drug form: INJ, ONCE, Stop date: 12/04/16 13:37:00 CDT Start Date: 12/04/16 Stop Date: 12/04/16 Status: Completedfolic acid 1 mg, 1 tab, Route: PO, Drug form: TAB, Daily, Dosing Weight 107.273, kg, Start date: 12/05/16 9:00:00 CDT, Duration: 30 day, Stop date: 01/03/17 9:00:00 CDT Notes: (Same as: Folvite) Start Date: 12/05/16 Stop Date: 12/06/16 Status: Discontinuedfolic acid 1 mg oral tablet 1 mg=1 tab, PO, Daily, # 30 tab, 0 Refill(s) Start Date: 11/30/16 Status: Orderedgabapentin 800 mg oral tablet 800 mg, 2 cap, Route: PO, Drug form: CAP, TID, Dosing Weight 107.273, kg, Start date: 12/05/16 9:00:00 CDT, Duration: 30 day, Stop date: 01/03/17 17:00:00 CDT Notes: (Same as: Neurontin) Start Date: 12/05/16 Stop Date: 12/06/16 Status: Discontinuedgabapentin 800 mg oral tablet 800 mg=1 tab, PO, TID, # 270 tab, 0 Refill(s) Start Date: 11/30/16 Status: Orderedglycopyrrolate (ANES) Route: IV, Drug form: INJ, ONCE, Stop date: 12/04/16 15:11:00 CDT Start Date: 12/04/16 Stop Date: 12/04/16 Status: Completedheparin 5,000 unit, 1 mL, Route: SUB-Q, Drug form: INJ, Q12H, Dosing Weight 106.563, kg , Start date: 12/05/16 9:00:00 CDT, Duration: 30 day, Stop date: 01/03/17 21:00: 00 CDT Notes: porcine heparin Start Date: 12/05/16 Stop Date: 12/06/16 Status: Discontinuedheparin 5000 units/mL injectable solution 5,000 unit, Route: SUB-Q, Drug form: INJ, PRE OP, Dosing Weight 106.563, kg, Start date: 12/04/16 11:00:00 CDT Start Date: 12/04/16 Stop Date: 12/04/16 Status: CompletedHumalog Kwik Pen 100 units/mL subcutaneous injection 5 unit, SUB-Q, TID-Before Meals, # 3 mL, 0 Refill(s) Start Date: 11/30/16 Status: OrderedhydrALAZINE 25 mg oral tablet 25 mg=1 tab, PO, BID, # 90 tab, 3 Refill(s) Start Date: 11/30/16 Status: OrderedhydrALAZINE 25 mg oral tablet 25 mg, 1 tab, Route: PO, Drug form: TAB, BID, Dosing Weight 107.273, kg, Start date: 12/05/16 5:10:00 CDT, Duration: 30 day, Stop date: 01/03/17 17:00:00 CDT Notes: (Same as: Apresoline) May interfere w/enteral feedings Take With Food. Start Date: 12/05/16 Stop Date: 12/06/16 Status: Discontinuedhydromorphone (ANES) Route: IV, Drug form: INJ, ONCE, Stop date: 12/04/16 15:11:00 CDT Start Date: 12/04/16 Stop Date: 12/04/16 Status: CompletedInsulin regular 5 unit, Route: IVP, ONCE, Dosing Weight 106.563, kg, Start date: 12/04/16 11:56: 00 CDT, Stop date: 12/04/16 11:56:00 CDT Start Date: 12/04/16 Stop Date: 12/04/16 Status: CompletedInsulin regular 5 unit, Route: IVP, ONCE, Dosing Weight 106.563, kg, Start date: 12/04/16 11:19: 00 CDT, Stop date: 12/04/16 11:19:00 CDT Start Date: 12/04/16 Stop Date: 12/04/16 Status: CompletedLactated Ringers Injection IV 1000 mL 1,000 mL, Rate: 25 ml/hr, Infuse over: 40 hr, Route: IV, Dosing Weight 106.563 kg, Total Volume: 1,000, Start date: 12/04/16 14:26:00 CDT, Duration: 30 day, Stop date: 01/03/17 14:25:00 CDT Start Date: 12/04/16 Stop Date: 12/04/16 Status: Discontinuedlevothyroxine 200 microgram, 1 tab, Route: PO, Drug form: TAB, Daily, Dosing Weight 107.273, kg, Start date: 12/05/16 6:30:00 CDT, Duration: 30 day, Stop date: 01/03/17 6:30 :00 CDT Notes: Take 1 hour before or 2 hours after meal; Enteral feeds may interefere with the absorption ofthis medication. (Same as: Levothroid) Start Date: 12/05/16 Stop Date: 12/06/16 Status: Discontinuedlevothyroxine 200 mcg (0.2 mg) oral tablet 200 microgram=1 tab, PO, Daily, # 30 tab, 0 Refill(s) Start Date: 11/30/16 Status: Orderedlidocaine (ANES) Route: IV, Drug form: INJ, ONCE, Stop date: 12/04/16 13:01:00 CDT Start Date: 12/04/16 Stop Date: 12/04/16 Status: CompletedLR 1000 mL INJ (ANES) Route: IV, Total Volume: 1,000, Start date: 12/04/16 12:26:00 CDT, Stop date: 13:26:00 CDT Start Date: 12/04/16 Stop Date: 12/04/16 Status: Completedmagnesium sulfate 2 gm, 50 mL, Route: IVPB, Drug form: INJ, ONCE, Dosing Weight 106.563, kg, Total dose=2 gm, Start date: 12/04/16 16:45:00 CDT, Duration: 1 doses or times, Stop date: 12/04/16 16:45:00 CDT Notes: WASTE: F/P - Sink; E - Municipal Trash Bin Start Date: 12/04/16 Stop Date: 12/04/16 Status: Completedmethotrexate 2.5 mg oral tablet 15 mg=6 tab, PO, Q7D, # 2 tab, 0 Refill(s) Start Date: 11/30/16 Stop Date: 12/14/16 Status: Orderedmetoclopramide (ANES) Route: IV, Drug form: INJ, ONCE, Stop date: 12/04/16 13:37:00 CDT Start Date: 12/04/16 Stop Date: 12/04/16 Status: Completedmetoclopramide 5 mg oral tablet 5 mg, 1 tab, Route: PO, Drug form: TAB, TID, Dosing Weight 107.273, kg, Start date: 12/05/16 9:00:00CDT, Duration: 30 day, Stop date: 01/03/17 17:00:00 CDT Notes: (Same as: Reglan) Take 30 min before meals Start Date: 12/05/16 Stop Date: 12/06/16 Status: Discontinuedmetoclopramide 5 mg oral tablet 5 mg=1 tab, PO, TID, # 28 tab, 0 Refill(s) Start Date: 11/30/16 Stop Date: 12/07/16 Status: Orderedmidazolam (ANES) Route: IV, Drug form: SOLN, ONCE, Stop date: 12/04/16 13:37:00 CDT Start Date: 12/04/16 Stop Date: 12/04/16 Status: Completedmidazolam (ANES) Route: IV, Drug form: SOLN, ONCE, Stop date: 12/04/16 15:32:00 CDT Start Date: 12/04/16 Stop Date: 12/04/16 Status: Completedmorphine Sulfate 4 mg, 1 mL, Route: IVP, Drug form: SOLN, Q3H, Dosing Weight 106.563, kg, PRN Pain Score 7-10, Start date: 12/04/16 19:56:00 CDT, Duration: 30 day, Stop date : 01/03/17 19:55:00 CDT Notes: (Same as:MORPhine Sulfate) Start Date: 12/04/16 Stop Date: 12/05/16 Status: Discontinuedmorphine Sulfate 4 mg, 1 mL, Route: IVP, Drug form: SOLN, Q4H, Dosing Weight 107.273, kg, PRN Pain Score 4-6, Start date: 12/05/16 10:42:00 CDT, Duration: 30 day, Stop date: 01/04/17 10:41:00 CDT Notes: (Same as:MORPhine Sulfate) Start Date: 12/05/16 Stop Date: 12/06/16 Status: Discontinuedmorphine Sulfate 4 mg, 1 mL, Route: IVP, Drug form: SOLN, Q4H, Dosing Weight 106.563, kg, PRN Pain Score 7-10, Start date: 12/04/16 16:42:00 CDT, Duration: 30 day, Stop date : 01/03/17 16:41:00 CDT Notes: (Same as:MORPhine Sulfate) Start Date: 12/04/16 Stop Date: 12/04/16 Status: Discontinuedneostigmine (ANES) Route: IV, Drug form: INJ, ONCE, Stop date: 12/04/16 15:11:00 CDT Start Date: 12/04/16 Stop Date: 12/04/16 Status: Completedondansetron (ANES) Route: IV, Drug form: INJ, ONCE, Stop date: 12/04/16 13:01:00 CDT Start Date: 12/04/16 Stop Date: 12/04/16 Status: Completedondansetron 4 mg oral tablet 4 mg=1 tab, PO, TID, # 3 tab, 0 Refill(s) Start Date: 11/30/16 Stop Date: 12/01/16 Status: Orderedpantoprazole 40 mg, 1 tab, Route: PO, Drug form: ECTAB, Daily, Dosing Weight 107.273, kg, Start date: 12/05/16 9:00:00 CDT, Duration: 30 day, Stop date: 01/03/17 9:00:00 CDT Notes: Tablet should not be chewed or crushed.(Same as: Protonix) Start Date: 12/05/16 Stop Date: 12/06/16 Status: Discontinuedpantoprazole 40 mg oral enteric coated tablet 40 mg=1 tab, PO, Daily, # 30 tab, 0 Refill(s) Start Date: 11/30/16 Status: Orderedpropofol (ANES) Route: IV, Drug form: INJ, ONCE, Stop date: 12/04/16 13:37:00 CDT Start Date: 12/04/16 Stop Date: 12/04/16 Status: Completedrocuronium (ANES) Route: IV, Drug form: INJ, ONCE, Stop date: 12/04/16 13:01:00 CDT Start Date: 12/04/16 Stop Date: 12/04/16 Status: Completedrosuvastatin 10 mg, 2 tab, Route: PO, Drug form: TAB, Bedtime, Dosing Weight 107.273, kg, Start date: 12/04/16 21:00:00 CDT, Duration: 30 day, Stop date: 01/02/17 21:00: 00 CDT Notes: Same as Crestor Start Date: 12/04/16 Stop Date: 12/06/16 Status: Discontinuedrosuvastatin 10 mg oral tablet 10 mg=1 tab, PO, Bedtime, # 30 tab, 0 Refill(s) Start Date: 11/30/16 Status: Orderedsodium chloride 0.9% 1000 ml INJ (ANES) Route: IV, Total Volume: 1,000, Start date: 12/04/16 12:40:00 CDT, Stop date: 13:40:00 CDT Start Date: 12/04/16 Stop Date: 12/04/16 Status: Completedsodium chloride 0.9% 1000 ml INJ 1,000 mL 1,000 mL, Rate: 75 ml/hr, Infuse over: 13.3 hr, Route: IV, Dosing Weight 106.563 kg, Total Volume: 1,000, Start date: 12/04/16 18:04:00 CDT, Duration: 30 day, Stop date: 01/03/17 18:03:00 CDT Start Date: 12/04/16 Stop Date: 12/04/16 Status: Discontinuedvalsartan 160 mg, 1 tab, Route: PO, Drug form: TAB, Daily, Dosing Weight 107.273, kg, Start date: 12/05/16 9:00:00 CDT, Duration: 30 day, Stop date: 01/03/17 9:00:00 CDT Notes: Same as Diovan Start Date: 12/05/16 Stop Date: 12/06/16 Status: Discontinuedvalsartan 320 mg oral tablet 160 mg=0.5 tab, PO, Daily, # 30 tab, 0 Refill(s) Start Date: 11/30/16 Status: Ordered Results BLOOD BANK RESULTS Most recent to oldest [Reference Range]: 1 2 3 ABO/Rh O POS *Unknown* (11/30/16 9:13 AM) Antibody Scrn Negative (11/30/16 9:13 AM) ELECTROLYTES Most recent to oldest 1 2 3 [Reference Range]: Sodium Lvl [135-145 mEq/L] 134 mEq/L 138 mEq/L 138 mEq/L *LOW* (12/05/16 5:11 AM) (12/04/16 3:27 PM) (12/06/16 7:07 AM) Potassium Lvl [3.5-5.1 3.9 mEq/L 3.9 mEq/L 3.9 mEq/L mEq/L] (12/06/16 7:07 AM) (12/05/16 5:11 AM) (12/04/16 3:27 PM) Chloride Lvl [95-109 mEq/L] 99 mEq/L 104 mEq/L 106 mEq/L (12/06/16 7:07 AM) (12/05/16 5:11 AM) (12/04/16 3:27 PM) CO2 [24-32 mEq/L] 27 mEq/L 29 mEq/L 27 mEq/L (12/06/16 7:07 AM) (12/05/16 5:11 AM) (12/04/16 3:27 PM) AGAP [10.0-20.0 mEq/L] 11.9 mEq/L 8.9 mEq/L 8.9 mEq/L (12/06/16 7:07 AM) *LOW* *LOW* (12/05/16 5:11 AM) (12/04/16 3:27 PM) CHEM PANEL Most recent to oldest 1 2 3 [Reference Range]: Creatinine Lvl [0.50-1.40 0.83 mg/dL 1.20 mg/dL 1.30 mg/dL mg/dL] (12/06/16 7:07 AM) (12/05/16 5:11 AM) (12/04/16 3:27 PM) eGFR 102 mL/min/1.73m2 1 70 mL/min/1.73m2 2 63 mL/min/1.73m2 3 *NA* *NA* *NA* (12/06/16 7:07 AM) (12/05/16 5:11 AM) (12/04/16 3:27 PM) BUN [7-22 mg/dL] 13 mg/dL 16 mg/dL 16 mg/dL (12/06/16 7:07 AM) (12/05/16 5:11 AM) (12/04/16 3:27 PM) B/C Ratio [6-25] 16 13 15 (12/06/16 7:07 AM) (12/05/16 5:11 AM) (11/30/16 9:13 AM) Glucose Lvl [70-99 mg/dL] 262 mg/dL 119 mg/dL 103 mg/dL *HI* *HI* *HI* (12/06/16 7:07 AM) (12/05/16 5:11 AM) (12/04/16 3:27 PM) Total Protein [6.4-8.4 6.7 g/dL 6.7 g/dL 7.4 g/dL g/dL] (12/06/16 7:07 AM) (12/05/16 5:11 AM) (11/30/16 9:13 AM) Albumin Lvl [3.5-5.0 g/dL] 3.1 g/dL 3.1 g/dL 3.7 g/dL *LOW* *LOW* (11/30/16 9:13 AM) (12/06/16 7:07 AM) (12/05/16 5:11 AM) Globulin [2.7-4.2 g/dL] 3.6 g/dL 3.6 g/dL 3.7 g/dL (12/06/16 7:07 AM) (12/05/16 5:11 AM) (11/30/16 9:13 AM) A/G Ratio [0.7-1.6] 0.9 0.9 1.0 (12/06/16 7:07 AM) (12/05/16 5:11 AM) (11/30/16 9:13 AM) Calcium Lvl [8.5-10.5 8.3 mg/dL 7.9 mg/dL 7.8 mg/dL mg/dL] *LOW* *LOW* *LOW* (12/06/16 7:07 AM) (12/05/16 5:11 AM) (12/04/16 3:27 PM) Magnesium Lvl [1.8-2.4 1.8 mg/dL mg/dL] (12/04/16 3:27 PM) ALT [0-65 unit/L] 52 unit/L 38 unit/L 29 unit/L (12/06/16 7:07 AM) (12/05/16 5:11 AM) (11/30/16 9:13 AM) AST [0-37 unit/L] 39 unit/L 36 unit/L 14 unit/L *HI* (12/05/16 5:11 AM) (11/30/16 9:13 AM) (12/06/16 7:07 AM) Alk Phos [39-136 unit/L] 77 unit/L 83 unit/L 78 unit/L (12/06/16 7:07 AM) (12/05/16 5:11 AM) (11/30/16 9:13 AM) Bili Total [0.2-1.3 mg/dL] 2.1 mg/dL 1.3 mg/dL 0.9 mg/dL *HI* (12/05/16 5:11 AM) (11/30/16 9:13 AM) (12/06/16 7:07 AM) 1Result Comment: The eGFR is calculated using the CKD-EPI formula. In most young , healthy individualsthe eGFR will be >90 mL/min/1.73m2. The eGFR declines with age. An eGFR of 60-89 may be normal in some populations, particularly the elderly, for whom the CKD-EPI formula has not been extensively validated. Use of the eGFR is not recommended in the following populations: Individuals with unstable creatinine concentrations, including patients and those with serious co-morbid conditions. Patients with extremes in muscle mass or diet. The data above are obtained from the National Kid[employer] Disease Education Program ( [employer]) which additionally recommends that when the eGFR is used in patients with extremes of body mass index for purposesof drug dosing, the eGFR should be multiplied by the estimated BMI.2Result Comment: The eGFR is calculated using the CKD-EPI formula. In most young, healthy individualsthe eGFR will be >90 mL/ min/1.73m2. The eGFR declines with age. An eGFR of 60-89 may be normal in some populations, particularly the elderly, for whom the CKD-EPI formula has not been extensively validated. Use of the eGFR is not recommended in the following populations: Individuals with unstable creatinine concentrations, including patients and those with serious co-morbid conditions. Patients with extremes in muscle mass or diet. The data above are obtained from the National Kid[employer] Disease Education Program ( [employer]) which additionally recommends that when the eGFR is used in patients with extremes of body mass index for purposesof drug dosing, the eGFR should be multiplied by the estimated BMI.3Result Comment: The eGFR is calculated using the CKD-EPI formula. In most young, healthy individualsthe eGFR will be >90 mL/ min/1.73m2. The eGFR declines with age. An eGFR of 60-89 may be normal in some populations, particularly the elderly, for whom the CKD-EPI formula has not been extensively validated. Use of the eGFR is not recommended in the following populations: Individuals with unstable creatinine concentrations, including patients and those with serious co-morbid conditions. Patients with extremes in muscle mass or diet. The data above are obtained from the National Kid[employer] Disease Education Program ( [employer]) which additionally recommends that when the eGFR is used in patients with extremes of body mass index for purposesof drug dosing, the eGFR should be multiplied by the estimated BMI.URINE AND STOOL Most recent to oldest [Reference Range]: 1 2 3 UA Turbidity [Clear] Clear (11/30/16 9:13 AM) UA Color Ltyellow *NA* (11/30/16 9:13 AM) UA pH [5.0-8.0] 5.0 (11/30/16 9:13 AM) UA Spec Grav [<=1.030] 1.017 (11/30/16 9:13 AM) UA Glucose [Negative mg/dL] 500 mg/dL *ABN* (11/30/16 9:13 AM) UA Blood [Negative] Negative (11/30/16:13 AM) UA Ketones [Negative mg/dL] Negative mg/dL *NA* (11/30/16 9:13 AM) UA Protein [Negative mg/dL] Negative mg/dL (11/30/16 9:13 AM) UA Urobilinogen [0.1-1.0 mg/dL] <=1.0 mg/dL *NA* (11/30/16 9:13 AM) UA Bili [Negative] Negative *NA* (11/30/16 9:13 AM) UA Leuk Est [Negative] Trace *ABN* (11/30/16 9:13 AM) UA Nitrite [Negative] Negative (11/30/16 9:13 AM) UA WBC [0-5 /HPF] 3 /HPF (11/30/16 9:13 AM) UA RBC [0-2 /HPF] 2 /HPF (11/30/16 9:13 AM) UA Sq Epi None Seen *NA* (11/30/16 9:13 AM) UA Mucus [None Seen /LPF] Few /LPF *NA* (11/30/16 9:13 AM) HEMATOLOGY Most recent to oldest 1 2 3 [Reference Range]: WBC [3.7-10.4 K/CMM] 10.2 K/CMM 9.1 K/CMM 8.1 K/CMM (12/06/16 7:07 AM) (12/05/16 5:11 AM) (12/04/16 3:27 PM) RBC [4.70-6.10 M/CMM] 4.17 M/CMM 4.41 M/CMM 4.15 M/CMM *LOW* *LOW* *LOW* (12/06/16 7:07 AM) (12/05/16 5:11 AM) (12/04/16 3:27 PM) Hgb [14.0-18.0 g/dL] 13.1 g/dL 13.7 g/dL 12.9 g/dL *LOW* *LOW* *LOW* (12/06/16 7:07 AM) (12/05/16 5:11 AM) (12/04/16 3:27 PM) Hct [42.0-54.0 %] 37.6 % 40.4 % 38.4 % *LOW* *LOW* *LOW* (12/06/16 7:07 AM) (12/05/16 5:11 AM) (12/04/16 3:27 PM) MCV [80.0-94.0 fL] 90.2 fL 91.6 fL 92.5 fL (12/06/16 7:07 AM) (12/05/16 5:11 AM) (12/04/16 3:27 PM) MCH [27.0-31.0 pg] 31.5 pg 31.1 pg 31.2 pg *HI* *HI* *HI* (12/06/16 7:07 AM) (12/05/16 5:11 AM) (12/04/16 3:27 PM) MCHC [32.0-36.0 g/dL] 34.9 g/dL 34.0 g/dL 33.7 g/dL (12/06/16 7:07 AM) (12/05/16 5:11 AM) (12/04/16 3:27 PM) RDW [11.5-14.5 %] 13.7 % 14.0 % 13.8 % (12/06/16 7:07 AM) (12/05/16 5:11 AM) (12/04/16 3:27 PM) Platelet [133-450 K/CMM] 159 K/CMM 165 K/CMM 182 K/CMM (12/06/16 7:07 AM) (12/05/16 5:11 AM) (12/04/16 3:27 PM) MPV [7.4-10.4 fL] 8.1 fL 8.4 fL 7.8 fL (12/06/16 7:07 AM) (12/05/16 5:11 AM) (12/04/16 3:27 PM) Segs [45.0-75.0 %] 68.5 % 68.7 % 63.3 % (12/06/16 7:07 AM) (12/05/16 5:11 AM) (12/04/16 3:27 PM) Lymphocytes [20.0-40.0 %] 18.4 % 17.8 % 23.6 % *LOW* *LOW* (12/04/16 3:27 PM) (12/06/16 7:07 AM) (12/05/16 5:11 AM) Monocytes [2.0-12.0 %] 12.2 % 11.9 % 11.1 % *HI* (12/05/16 5:11 AM) (12/04/16 3:27 PM) (12/06/16 7:07 AM) Eosinophils [0.0-4.0 %] 0.6 % 1.2 % 1.2 % (12/06/16 7:07 AM) (12/05/16 5:11 AM) (12/04/16 3:27 PM) Basophils [0.0-1.0 %] 0.3 % 0.4 % 0.8 % (12/06/16 7:07 AM) (12/05/16 5:11 AM) (12/04/16 3:27 PM) Segs-Bands # [1.5-8.1 K/CMM] 7.0 K/CMM 6.3 K/CMM 5.1 K/CMM (12/06/16 7:07 AM) (12/05/16 5:11 AM) (12/04/16 3:27 PM) Lymphocytes # [1.0-5.5 1.9 K/CMM 1.6 K/CMM 1.9 K/CMM K/CMM] (12/06/16 7:07 AM) (12/05/16 5:11 AM) (12/04/16 3:27 PM) Monocytes # [0.0-0.8 K/CMM] 1.2 K/CMM 1.1 K/CMM 0.9 K/CMM *HI* *HI* *HI* (12/06/16 7:07 AM) (12/05/16 5:11 AM) (12/04/16 3:27 PM) Eosinophils # [0.0-0.5 0.1 K/CMM 0.1 K/CMM 0.1 K/CMM K/CMM] (12/06/16 7:07 AM) (12/05/16 5:11 AM) (12/04/16 3:27 PM) Basophils # [0.0-0.2 K/CMM] 0.1 K/CMM (12/04/16 3:27 PM) PT [12.0-14.7 seconds] 13.0 seconds (11/30/16 9:13 AM) INR [0.85-1.17] 0.96 (11/30/16 9:13 AM) PTT [22.9-35.8 seconds] 29.2 seconds (11/30/16 9:13 AM) Immunizations No data available for this section Procedures Procedure Date Related Diagnosis Body Site Open reduction and internal fixation of fracture 2001 Catheterization of both left and right heart 2000 Colonoscopy Operation Social History Social History Type Response Alcohol Past Smoking Status Never smoker; Type: Cigarettes; Exposure to Tobacco Smoke None; Other Tobacco Frequency Stopped dipping chewing tobacco 2014; Cigarette Smoking Last 365 Days No; Reg Smoking Cessation Counseling No Assessment and Plan Extracted from: Title: Clinical Document Author: Hugo Hollis MD Date: 12/06/16 IPC Daily Progress Note [facility] Hugo Hollis MD SUBJECTIVE: pt seen and examined, events noted OBJECTIVE: Vitals and Temp: Vitals Tmp(F) Pulse BP RR SpO2 FIO2 12/06 12:16 98.5 71 136/82 18 94 --- 12/06 10:52 ---- --- ----- -- 93 --- 12/06 07:40 98.4 77 114/70 18 91 --- 12/06 07:36 ---- --- ----- 16 98 --- 12/06 04:00 98.2 81 159/96 18 93 --- 24 Hr Tmax: 99.4F (37.44c) at 12/05 20:00 Vital Signs are the last 5 in the past 48 hours. Labs (Last four charted values) WBC 10.2 (DEC 06) 9.1 (DEC 05) 8.1 (DEC 04) 6.4 (NOV 30) Hgb L 13.1 (DEC 06) L 13.7 (DEC 05) L 12.9 (DEC 04) 14.5 (NOV 30) Hct L 37.6 (DEC 06) L 40.4 (DEC 05) L 38.4 (DEC 04) 42.6 (NOV 30) Plt 159 (DEC 06) 165 (DEC 05) 182 (DEC 04) 230 (NOV 30) Na L 134 (DEC 06) 138 (DEC 05) 138 (DEC 04) 140 (NOV 30) K 3.9 (DEC 06) 3.9 (DEC 05) 3.9 (DEC 04) 4.2 (NOV 30) CO2 27 (DEC 06) 29 (DEC 05) 27 (DEC 04) 30 (NOV 30) Cl 99 (DEC 06) 104 (DEC 05) 106 (DEC 04) 103 (NOV 30) Cr 0.83 (DEC 06) 1.20 (DEC 05) 1.30 (DEC 04) 1.00 (NOV 30) BUN 13 (DEC 06) 16 (DEC 05) 16 (DEC 04) 15 (NOV 30) Glucose Random H 262 (DEC 06) H 119 (DEC 05) H 103 (DEC 04) H 107 (NOV 30 ) Mg 1.8 (DEC 04) Ca L 8.3 (DEC 06) L 7.9 (DEC 05) L 7.8 (DEC 04) 8.6 (NOV 30) PT 13.0 (NOV 30) INR 0.96 (NOV 30) PTT 29.2 (NOV 30) ASSESSMENT & EXAM: General: in no apparent distress at this time. Eyes: Pupils equal, round and reactive to light. Eyes normal inspection. ENT: Ears normal. Nose normal. Pharynx normal. Neck: Normal inspection. No jugular venous distention. Neck supple. CVS: Heart sounds normal. Pulses normal. no murmurs Respiratory: No respiratory distress. Breath sounds normal. no wheezing Abdomen: Soft and nontender. no organomegaly Back: Normal inspection. Skin: Skin warm and dry. Normal skin color. Extremities: Extremities exhibit normal ROM. No lower extremity edema. Neuro: Oriented X 3. No motor deficit. DIAGNOSES & PROBLEMS: TYPE III HIATAL HERNIA PLAN & TREATMENT: cont post-op care cont wound care DVT prophylaxis Discharge home See Med reconciliation form F/U with PCP in 2 weeks, medical specialists as necessary Diet: cont same diet Activity as katerin MEDICATIONS Scheduled Meds (11):albuterol-ipratropium (albuterol-ipratropium 2.5-0.5 mg inhalation solution), carvedilol, folic acid, gabapentin (gabapentin 800 mg oral tablet), heparin, hydrALAZINE (hydrALAZINE 25 mg oral tablet), levothyroxine, metoclopramide (metoclopramide 5 mg oral tablet), pantoprazole, rosuvastatin, valsartan Unscheduled Meds: None PRN Meds (3):Dextrose 50% in Water IV (Dextrose 50% Syringe), acetaminophen- codeine (acetaminophen-codeine 120 mg-12 mg/5 mL oral liquid), morphine Sulfate One Time Meds: None Continuous Infusions (1):D5W 1/2NS 1,000 mL Extracted from: Title: Clinical Document Author: Jordyn Fletcher MD Date: 12/05/16 PATIENT NAME: DARCY SOTO DATE OF OPERATION/PROCEDURE: 12/04/2016 PREOPERATIVE DIAGNOSIS: 1. Type III Hiatal hernia with paraesophageal component 2. Epigastric pain, dysphagia, heartburn, regurgitation, post prandial nausea POSTPROCEDURE DIAGNOSES: 1. Type III Hiatal hernia with paraesophageal component 2. Epigastric pain, dysphagia, heartburn, regurgitation, post prandial nausea SURGEON: Jordyn Fletcher. HAT BODY INSPECTOR: Carmel Palumbo and Rachel Jeffers PROCEDURES PERFORMED: 1. Laparoscopic reduction of type III hiatal hernia with paraesophageal component 2. Repair of diaphragmatic hiatal hernia with Acell mesh 3. Esophagogastric Toupet fundoplasty. 4. Upper endoscopy to assess the fundoplication and presence of leak. INDICATIONS: The patient is a 51-year-old female with three years history of progressive epigastric pain, dysphagia, heartburn, regurgitation, post prandial nausea which is worse in the past three months. He was hos pitalized tow weeks ago with inability to eat and hydration. On the videoesophagram she was found to have a 9-cm mixed type III hiatal hernia with paraesophageal component and adequate esophageal clearance and adequate emptying of the contrast for the stomach int o the small bowel on delayed imaging. Upper endoscopy showed a large hiatal hernia and retained food in the stomach. The gastric emptying study was 208 minutes, He denied post prandial vomiting to zak y satiety. He had a normal EF and was cleared by cardiology. Our plan was to perform a laparoscopic versus open reduction of type III hiatal hernia with paraesophageal component, repair of diaphragmatic hiatal hernia with mesh, esophagogastric Toupet fundoplasty and an upper endoscopy to assess the fundoplication and presence of leak. The risks of this procedure including infection, bleeding, injury to intra- abdominal structures such as esophagus, stomach and t he spleen, intraoperative pneumothorax requiring chest tube placement, postoperative dysphagia, possible inability to burp and vomit, increase flatus, recurrent herniation, postprandial bloating, need f or gastric pacing in future and were all explained to the patient. He understood and agreed to proceed. PROCEDURE: The patient was taken to the operating room and was placed on the operating table in the supine position. After undergoing general endotracheal anesthesia , the patient was placed in the reverse [place] position with the legs spread apart in holders and he was secured to the operating room table. Abdomen was then prepped and draped in the usual sterile fashion. A small incision was made just lateral to the midline, two-third of the distance between the xiphoid and umbilicus. The optic port was used and the entrance to the abdominal cavity was achieved under direct vision. One 12-mm port was placed in the left upper quadrant, an 11-mm port was placed in the left flank at the level of the umb ilicus, a 5-mm port was placed below the xiphoid for liver retraction and a 5- mm port was placed in the right upper quadrant. The liver retractor was inserted and the left lateral segment of the liver was retracted superiorly and to the right. The gastrohepatic ligament was then divided. The hiatus was exposed. The patient was found to have a type III hiatal hernia with paraesophageal component. The right ana of diaphragm was identified and was from the hernia. The left ana was then identified and was from the hernia. Dissection continued into the mediastinum to reduce the hernia sac. The short gastric vessels were taken down at the superior one-third of the stomach using the Harmonic scalpel, up to the level of the left ana. The gastroesophageal junction was then identified. Subsequently, a Deanne was placed around the esophagus and further mediastinal esophageal mobilization w as performed. There were severe adhesions between the stomach and the mediastinal structures including the aorta and the right pleura which were divided. The hernia sac was fully reduced and excised. Af ter full esophageal mobilization we had about 3 cm tension free intrabdominal esophageal length. An upper endoscopy was preformed and there was no evidence of perforation. Three interrupted 0-Ethibond stitches were used to close the diaphragmatic opening. The right ana seemed atrophic. The left ana was of a good caliber. Subsequently, a 5X5 cm piece of tailored Acell mesh was used to cover the crural closure and the edges of the mesh were sutured to crural edges. A marking stitch was then placed 6-cm from the gastroesophageal junction and 2 cm from the greater curvature on the posterior gastric wall and this marking stitch was then brought up superiorly to the r ight side of the esophagus between the esophagus and the crural closure. This stitch was brought up the posterior wall of the stomach to the right side of the esophagus. Subsequently, a shoe shine man euver was performed and the anterior and the posterior lips of the stomach were then approximated together with ease. Three Interrupted 2-0 silk stitches were placed between the esophagus and the stomac h at each side to construct a 270 degree posterior Toupet fundoplication. The right gastroepiploic arcade was in its normal left lateral position and there was no evidence of torsion of the stomach. Subsequently, we performed an upper endoscopy and insufflated the stomach. There was no evidence of leak. The retroflexed view of the gastroesophageal junction showed a well-formed Toupet fundoplicati on. The scope was retracted, the stomach was decompressed. The [place] drain was removed. All the fluid above the spleen and around the gastroesophageal junction were suctioned. All ports were removed under direct vision. The skin incisions were closed using subcuticular stitches. The patient tolerated the procedure well, was extubated and transferred to the postanesthesia recovery room without any complications. I was present for the entire procedure and performed the procedure form the beginning to the end. Extracted from: Title: Clinical Document Author: Hugo Hollis MD Date: 12/04/16 full h&p to follow
--- OUTSIDE RECORDS SUMMARY | 2018-06-23 17:15 | XMS REPORT | Summary of Care ---
:1965 Author Name JOSEY COCHRAN M.D. 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.9) Status: Active Medications Name Dates Details HumaLOG Pen SOLN Refills: 0 Active Enbrel 50 MG/ML Subcutaneous Solution Prefilled Syringe Refills: 0 Active Folic Acid CAPS Refills: 0 Active Synthroid 200 MCG Oral Tablet Refills: 0 Active Neurontin 800 MG Oral Tablet Refills: 0 Active Methotrexate 2.5 MG Oral Tablet Refills: 0 Active Pantoprazole Sodium 40 MG Oral Tablet Delayed Release Refills: 0 Active Metoclopramide HCl - 10 MG Oral Tablet Disintegrating Refills: 0 Active Zofran 2 MG/ML SOLN Refills: 0 Active HydrALAZINE HCl - 50 MG Oral Tablet Refills: 0 Active Carvedilol 25 MG Oral Tablet Refills: 0 Active Cyclobenzaprine HCl - 10 MG Oral Tablet Refills: 0 Active Alendronate Sodium 70 MG Oral Tablet Refills: 0 Active Super B Complex TABS Refills: 0 Active Vitamin B-12 1000 MCG Oral Tablet Refills: 0 Active V-R Vitamin C 1000 MG TABS Refills: 0 Active Melatonin 3 MG Oral Capsule Refills: 0 Active Allergies and Adverse Reactions Name Dates Details sulfa (Allergy) Status: Active Past Medical History Name Dates Details History of abnormal weight loss (V13.89, Z87.898) Status: Resolved History of diabetes mellitus (V12.29, Z86.39) Status: Resolved History of dysphagia (V12.79, Z87.19) Status: Resolved History of epigastric pain (V12.79, Z87.19) Status: Resolved History of essential hypertension (V12.59, Z86.79) Status: Resolved History of heartburn (V12.79, Z87.898) Status: Resolved History of hiatal hernia (V12.79, Z87.19) Status: Resolved History of hypercholesterolemia (V12.29, Z86.39) Status: Resolved History of Loss of appetite (783.0, R63.0) Status: Resolved History of nausea and vomiting (V12.79, Z87.898) Status: Resolved History of Regurgitation Status: Resolved History of rheumatoid arthritis (V13.4, Z87.39) Status: Resolved Procedures Procedure Dates Details History of Orthopedic surgery Completed History of Cardiac catheterization Completed Immunization Name Dates Details Immunizations not documented Family History Name Dates Details Family history of malignant neoplasm of cervix (V16.49, Z80.49) Status: Active Family history of colon cancer (V16.0, Z80.0) Status: Active Name Dates Details Family history of colon cancer (V16.0, Z80.0) Status: Active Social History Name Dates Details - Status: Name Dates Details Never smoker Vital Signs Date Test Result Details [id number] BP Systolic 108 mm[Hg] Status: Comments: Location: RUE; Position: Sitting BP Diastolic 68 mm[Hg] Status: Comments: Location: RUE; Position: Sitting Height 69 in Status: Weight 211.5 lb Status: Body Mass Index Calculated 31.23 kg/m2 Status: Body Surface Area Calculated 2.12 m2 Status: Temperature 97.9 f Status: Comments: Method: Oral Heart Rate 55 /min Status: Comments: Quality: Normal Respiration Rate 19 /min Status: Comments: Quality: Normal O2 SAT 95 % Status: Comments: Source: RA Results Date Description Value Details Results not documented Plan of Care Name Dates Details Planned Observations Planned Goals not documented Planned Encounters Appointment; JASPREET BYRNE On: 24-Jan-2018 7:00 Interventions Provided Rocio had a long discussion with him and his and explained to him that if his symptoms continue to improved no surgical intervention is warranted. I will see him again in 3 months, if his symptoms worsen within that time, I will refer him for a gastric pacemaker placement for his severe gastric delayand will consider performing a gastric preserving Princess-En-Y, esophagojejunostomy and partial gastrectomy. I will refer him to Dr. Jaspreet Byrne, colon and rectal surgery, to assess the rectal mass. Instructions Name Dates Details Instructions not documented Encounters Appointment; JOSEY COCHRAN M.D. On: 29-Nov-2016 14:15 Encounter Diagnosis: Problem not documented Appointment; JOSEY COCHRAN M.D. On: 27-Dec-2016 14:30 Encounter Diagnosis: Problem not documented Appointment; JOSEY COCHRAN M.D. On: 28-Mar-2017 9:45 Encounter Diagnosis: Problem not documented Appointment; JOSEY COCHRAN M.D. On: 12-Dec-2017 10:15 Encounter Diagnosis: Problem not documented Appointment; JOSEY COCHRAN M.D. On: 26-Dec-2017 9:30 Encounter Diagnosis: Problem not documented
--- OUTSIDE RECORDS SUMMARY | 2018-06-23 17:15 | XMS REPORT | Summary of Care ---
:1965 Author Organization [facility] Address [address] [place], [place] [address]- Encounter HQ Encntr_alizain(FIN) [id number] Date(s): 11/30/16 - 11/30/16 [facility] [address] [place] [address]- [phone] Discharge Disposition: Home or Self Care Attending Physician: Jordyn Fletcher MD Referring Physician: Jordyn Fletcher MD Vital Signs No data available for this section Problem List Condition Effective Dates Status Health Status Informant Benign hypertension(Confirmed) Active Diabetes(Confirmed) Active Hiatal hernia with GERD(Confirmed) Active Hypothyroid(Confirmed) Active Rheumatoid arthritis(Confirmed) Active Allergies, Adverse Reactions, Alerts Substance Reaction Severity Status sulfa drugs Active Medications No data available for this section Results No data available for this section Immunizations No data available for this section [...] Smoking Cessation Counseling No Assessment and Plan No data available for this section
--- OUTSIDE RECORDS SUMMARY | 2018-06-23 17:15 | XMS REPORT ---
:1965 [facility] Address [address] [place] [address] Dr. Nunez [address] [place] [id number] Care Team Providers Name Role Phone Unavailable Unavailable Unavailable Problems This patient has no known problems. Allergies, Adverse Reactions, Alerts This patient has no known allergies or adverse reactions. Medications This patient has no known medications.
[2018-06-23] MEDS ORDERED: ALBUTEROL 2.5 MG/3 ML NEB SOL ONE (18:01)
[2018-06-23] MEDS ORDERED: IPRATROPIUM BROM 0.5MG/2.5ML ONE (18:02)
[2018-06-23 18:15] LABS: Absolute Lymphocytes (CBC) 1.4 K/uL (0.7-4.9); Absolute Monocytes 0.9 K/uL (0.1-1.3); Absolute Neutrophil 3.4 K/uL (1.8-8.0); Basophils % 0.7 % (0-1.3); Eosinophils % 3.3 % (0-4.4); Hematocrit 46.5 % (39.6-49.0); MPV 8.4 fL (7.6-11.3); Monocytes % 15.4 % (3.3-12.3); RBC Red Blood Cell Count 5.29 M/uL (4.33-5.43)
[2018-06-23 18:19] LABS: Protime INR 0.93
[2018-06-23 18:37] LABS: ALT/SGPT 16 U/L (12-78); AST/SGOT 12 U/L (15-37); Albumin 3.5 g/dL (3.4-5.0); Alkaline Phosphatase 112 U/L (45-117); BUN Blood Urea Nitrogen 17 mg/dL (7-18); Bicarbonate 30 mmol/L (21-32); Bilirubin Direct 0.1 mg/dL (0-0.2); Bilirubin Total 0.4 mg/dL (0.2-1.0); Glucose Level 136 mg/dL (74-106); Magnesium 2.2 mg/dL (1.8-2.4); NT PRO-BNP 629 pg/mL (<125); Potassium 4.4 mmol/L (3.5-5.1); Protein, Total 7.2 g/dL (6.4-8.2); Sodium Level 142 mmol/L (136-145); Troponin (Emerg Dept Use Only) < 0.02 ng/mL (0.0-0.045)
[2018-06-23] MEDS ORDERED: METHYLPREDNISOLONE 125 MG INJ ONE (19:43)
--- NOTE | 2018-06-23 19:50 | RAD REPORT ---
EXAM DESCRIPTION: RAD - Chest Pa And Lat (2 Views) - 06/23/2018 7:11 pm CLINICAL HISTORY: Cough, shortness of breath COMPARISON: March 2017 TECHNIQUE: PA and lateral views of the chest were obtained. FINDINGS: The lungs are clear of a peripheral mass, consolidation or failure finding. Interstitial m arkings are prominent. Findings are not substantially different from comparison. Extent of chronic di sease could mask earliest stages of interstitial edema or infiltrate. Heart size is normal and cent ral vasculature is within normal limits. No pleural effusion or pneumothorax seen. No acute bony fi nding noted. No aortic abnormality. IMPRESSION: Prominent interstitial markings not substantially different from comparison. Mild inters titial edema or infiltrate could be masked by the chronic findings. No peripheral mass or consolidation.
--- NOTE | 2018-06-23 19:58 | ER ---
Nurse's Notes [facility] Name: Cirilo Lau Age: 52 yrs Sex: Male : 1965 Arrival Date: 06/23/2018 Time: 17:12 Bed 24 Private MD: Kvng Mcduffie Diagnosis: Hypoxemia;Cough Presentation: 06/23 17:19 Presenting complaint: Patient states: Cough and shortness of breath for the last few la1 days, reports chills. I have an pulse ox at home and my levels have been lower than normal in the 80s. Transition of care: patient was not received from another setting of care. Onset of symptoms was June 23, 2018. Risk Assessment: Do you want to hurt yourself or someone else? Patient reports no desire to harm self or others. Initial Sepsis Screen: Does the patient meet any 2 criteria? No. Patient's initial sepsis screen is negative. Does the patient have a suspected source of infection? No. Patient's initial sepsis screen is negative. Care prior to arrival: None. 17:19 Method Of Arrival: Ambulatory la1 17:19 Acuity: AIYANA 3 la1 Historical: - Allergies: 17:19 Sulfa (Sulfonamide Antibiotics); la1 - Home Meds: 21:06 gabapentin 800 mg oral tab 1 tab 3 times per day [Active]; promethazine 12.5 mg Oral fc tab 1 tab qid prn [Active]; pantoprazole 40 mg oral TbEC 1 tab once daily [Active]; valsartan 320 mg oral tab .5 tab twice a day [Active]; hydralazine 50 mg Oral tab .5 tab 2 times per day [Active]; levothyroxine 200 mcg tab 1 tab once daily [Active]; carvedilol 25 mg oral tab 1 tab 2 times per day [Active]; folic acid 1 mg Oral tab 1 tab once daily [Active]; amlodipine 5 mg tab .5 tab daily prn [Active]; rosuvastatin 20 mg oral tab 1 tab once daily [Active]; cyclobenzaprine 10 mg Oral tab 1 tab 3 times per day [Active]; Enbrel 50 mg/mL (0.98 mL) subcutaneous syrg 1 mL every sunday [Active]; Humalog Pen Sub-Q 2 units every hrs by insulin pump [Active]; alendronate 70 mg oral tab 1 tab once wkly [Active]; super B complex tab daily [Active]; Vitamin B-12 2,500 mcg sublingual subl daily [Active]; Vitamin C 1,000 mg Oral tab daily [Active]; Vitamin D Oral 5000 unit daily [Active]; vitamin E 400 unit Oral cap daily [Active]; Excello-3 Fish Oil 300-1,000 mg oral cap daily [Active]; Co Q-10 200 mg oral cap daily [Active]; melatonin 3 mg Oral tab nightly [Active]; - PMHx: 17:19 BLINDNESS; Rheumatoid Arthritis; Hypertension; High Cholesterol; Diabetes - IDDM; la1 - Immunization history:: Adult Immunizations up to date. - Social history:: Smoking status: Patient/guardian denies using tobacco. - Ebola Screening: : No symptoms or risks identified at this time. Screenin:25 Abuse screen: Denies threats or abuse. Denies injuries from another. Nutritional ca1 screening: No deficits noted. Tuberculosis screening: No symptoms or risk factors identified. Fall Risk IV access (20 points). Assessment: 17:25 General: Appears in no apparent distress. uncomfortable, Behavior is calm, cooperative, ca1 appropriate for age. Pain: Denies pain. Neuro: Level of Consciousness is awake, alert, obeys commands, Oriented to person, place, time, situation. Cardiovascular: Heart tones S1 S2 present Capillary refill < 3 seconds Patient's skin is warm and dry. Rhythm is sinus rhythm. Respiratory: Airway is patent Respiratory effort is even, labored, Respiratory pattern is regular, symmetrical, Breath sounds with wheezes bilaterally. GI: Abdomen is round non-distended, pt has Insulin Pump at RLQ Bowel sounds present X 4 quads. Abd is soft and non tender X 4 quads. : No signs and/or symptoms were reported regarding the genitourinary system. EENT: No signs and/or symptoms were reported regarding the EENT system. Derm: Skin is intact, is healthy with good turgor, Skin is pink, warm \T\ dry. Musculoskeletal: Circulation, motion, and sensation intact. Capillary refill < 3 seconds. 18:50 Reassessment: Patient appears in no apparent distress at this time. Patient and/or ca1 family updated on plan of care and expected duration. Pain level reassessed. Patient is alert, oriented x 3, equal unlabored respirations, skin warm/dry/pink. Patient states feeling better. Patient states symptoms have improved. 19:20 Reassessment: Pt from Radiology without O2, pt's O2 sat at 96-97% at RA prior to going ca1 to radiology though wheelchair. Pt came back to room with labored breathing and O2 sat at 82% RA. Provided O2 via NC at 2LPM, O2 sat at 97-98%. 19:40 Reassessment: Pt off O2 by FRANCISCO Benites. 02 sat at 94-95% RA, on bed and at rest. ca1 20:18 Reassessment: Patient appears in no apparent distress at this time. Patient and/or ca1 family updated on plan of care and expected duration. Pain level reassessed. Patient is alert, oriented x 3, equal unlabored respirations, skin warm/dry/pink. waiting for room assignment. 21:24 Reassessment: Patient appears in no apparent distress at this time. Patient and/or ca1 family updated on plan of care and expected duration. Pain level reassessed. Patient is alert, oriented x 3, equal unlabored respirations, skin warm/dry/pink. 21:38 Reassessment: Called 2nd floor for report. Requested for a call back once receiving RN ca1 is available to take report. Vital Signs: 17:21 Pulse 76; Resp 18; Temp 98.1; Pulse Ox 89% on R/A; Weight 91.63 kg; Height 5 ft. 9 in. la1 (175.26 cm); 17:21 BP 159 / 90; la1 18:35 BP 158 / 81; Pulse 70; Resp 21; Pulse Ox 100% on Nebulizer Mask; ca1 18:50 BP 155 / 88; Pulse 71; Resp 21; Pulse Ox 97% on R/A; ca1 19:25 BP 162 / 80; Pulse 72; Resp 19; Pulse Ox 96% on 2 lpm NC; ca1 19:45 BP 146 / 92; Pulse 78; Resp 19; Pulse Ox 93% on R/A; ca1 20:21 BP 151 / 84; Pulse 71; Resp 18; Pulse Ox 94% on R/A; ca1 21:24 BP 152 / 75; Pulse 72; Resp 18; Pulse Ox 92% on R/A; ca1 17:21 Body Mass Index 29.83 (91.63 kg, 175.26 cm) la1 ED Course: 17:12 Patient arrived in ED. as 17:12 Kvng Mcduffie MD is Private Physician. as 17:19 Triage completed. la1 17:19 Arm band placed on left wrist. la1 17:23 Jareth Pina PA is PHCP. cp 17:23 Anmol Sloan MD is Attending Physician. cp 17:25 Patient has correct armband on for positive identification. Placed in gown. Bed in low ca1 position. Call light in reach. Side rails up X 1. compliance monitor on. Pulse ox on. NIBP on. Warm blanket given. 17:49 Dali Boswell RN is Primary Nurse. ca1 18:03 Inserted saline lock: 20 gauge in right antecubital area, using aseptic technique. ca1 Blood collected. 18:03 First set of blood cultures drawn by me. ca1 18:20 Second set of blood cultures drawn by me. ca1 19:07 XRAY Chest Pa And Lat (2 Views) In Process Unspecified. EDMS 19:56 Edi Carter MD is Hospitalizing Provider. cp 21:49 No provider procedures requiring assistance completed. Patient admitted, IV remains in ca1 place. Administered Medications: 17:50 Drug: Albuterol - atroVENT (3:1) (2.5 mg - 0.5 mg) 3 ml Route: Nebulizer; ca1 20:18 Follow up: Response: No adverse reaction; Marked relief of symptoms ca1 19:30 Drug: SOLU-Medrol 125 mg Route: IVP; Site: right antecubital; ca1 20:18 Follow up: Response: No adverse reaction; Marked relief of symptoms ca1 21:31 Drug: XANax Tablet 0.25 mg Route: PO; ca1 21:35 Follow up: Response: No adverse reaction; Anxiety decreased ca1 Outcome: 19:57 Decision to Hospitalize by Provider. cp 21:49 Admitted to Med/surg accompanied by tech, family with patient, via wheelchair, room ca1 228, with oxygen, with chart, Report called to Joe Hdez RN 21:49 Condition: stable 21:49 Instructed on the need for admit. 22:13 Patient left the ED. ca1 Signatures: Dispatcher [employer] EDMS Susana Noriega RN RN fc Martinez, Amelia as Attema, Lee, RN RN la1 Page, JarethFRANCISCO booker cp, Cheryl RN RN ca1 Corrections: (The following items were deleted from the chart) 17:21 17:19 Presenting complaint: Patient states: Cough and shortness of breath for the last la1 few days, reports chills la1 19:41 19:00 Reassessment: Patient appears in no apparent distress at this time. Patient ca1 and/or family updated on plan of care and expected duration. Pain level reassessed. Patient is alert, oriented x 3, equal unlabored respirations, skin warm/dry/pink. Patient states feeling better. Patient states symptoms have improved. ca1 19:45 18:50 BP 155 / 88; Pulse 71bpm; Resp 21bpm; Pulse Ox 98% RA; ca1 ca1 21:38 18:50 Reassessment: Patient appears in no apparent distress at this time. Patient ca1 and/or family updated on plan of care and expected duration. Pain level reassessed. Patient is alert, oriented x 3, equal unlabored respirations, skin warm/dry/pink. Patient states feeling better. Patient states symptoms have improved. ca1
--- NOTE | 2018-06-23 19:58 | EDPHYS ---
Physician Documentation [facility] Name: iCrilo Lau Age: 52 yrs Sex: Male : 1965 Arrival Date: 06/23/2018 Time: 17:12 Bed 24 Private MD: Kvng Mcduffie ED Physician Anmol Sloan HPI: 06/23 17:50 This 52 yrs old Male presents to ER via Ambulatory with complaints of Cough. cp 17:50 The patient or guardian reports cough, that is intermittent, shortness of breath. cp Onset: The symptoms/episode began/occurred 2 day(s) ago. Severity of symptoms: in the emergency department the symptoms are unchanged, despite home interventions. Associated signs and symptoms: Pertinent positives: fever, sore throat, Pertinent negatives: chest pain, diarrhea, vomiting. Historical: - Allergies: 17:19 Sulfa (Sulfonamide Antibiotics); la1 - Home Meds: 21:06 gabapentin 800 mg oral tab 1 tab 3 times per day [Active]; promethazine 12.5 mg Oral fc tab 1 tab qid prn [Active]; pantoprazole 40 mg oral TbEC 1 tab once daily [Active]; valsartan 320 mg oral tab .5 tab twice a day [Active]; hydralazine 50 mg Oral tab .5 tab 2 times per day [Active]; levothyroxine 200 mcg tab 1 tab once daily [Active]; carvedilol 25 mg oral tab 1 tab 2 times per day [Active]; folic acid 1 mg Oral tab 1 tab once daily [Active]; amlodipine 5 mg tab .5 tab daily prn [Active]; rosuvastatin 20 mg oral tab 1 tab once daily [Active]; cyclobenzaprine 10 mg Oral tab 1 tab 3 times per day [Active]; Enbrel 50 mg/mL (0.98 mL) subcutaneous syrg 1 mL every sunday [Active]; Humalog Pen Sub-Q 2 units every hrs by insulin pump [Active]; alendronate 70 mg oral tab 1 tab once wkly [Active]; super B complex tab daily [Active]; Vitamin B-12 2,500 mcg sublingual subl daily [Active]; Vitamin C 1,000 mg Oral tab daily [Active]; Vitamin D Oral 5000 unit daily [Active]; vitamin E 400 unit Oral cap daily [Active]; Holland-3 Fish Oil 300-1,000 mg oral cap daily [Active]; Co Q-10 200 mg oral cap daily [Active]; melatonin 3 mg Oral tab nightly [Active]; - PMHx: 17:19 BLINDNESS; Rheumatoid Arthritis; Hypertension; High Cholesterol; Diabetes - IDDM; la1 - Immunization history:: Adult Immunizations up to date. - Social history:: Smoking status: Patient/guardian denies using tobacco. - Ebola Screening: : No symptoms or risks identified at this time. ROS: 18:00 Constitutional: Negative for fever, poor PO intake. cp 18:00 Eyes: Negative for injury, pain, redness, and discharge. cp 18:00 ENT: Positive for sore throat, Negative for drainage from ear(s), ear pain, difficulty swallowing, difficulty handling secretions. 18:00 Cardiovascular: Negative for chest pain, edema, palpitations. 18:00 Respiratory: Positive for cough, shortness of breath, Negative for hemoptysis, wheezing. 18:00 Abdomen/GI: Negative for abdominal pain, nausea, vomiting, and diarrhea, black/tarry stool, rectal bleeding. 18:00 Back: Negative for radiated pain. 18:00 : Negative for urinary symptoms. 18:00 Skin: Negative for cellulitis, rash. 18:00 Neuro: Negative for altered mental status, dizziness, headache, syncope, weakness. 18:00 All other systems are negative. Exam: 18:05 Constitutional: The patient appears in no acute distress, alert, awake, cp non-diaphoretic, non-toxic, well developed, well nourished. 18:05 Head/Face: Normocephalic, atraumatic. cp 18:05 Eyes: Periorbital structures: appear normal, Conjunctiva: normal, no exudate, no injection, Sclera: no appreciated abnormality, Lids and lashes: appear normal, bilaterally. 18:05 ENT: External ear(s): are unremarkable, Ear canal(s): are normal, clear, TM's: bulging, is not appreciated, bilaterally, dullness, bilaterally, erythema, is not appreciated, bilaterally, Nose: is normal, Mouth: Lips: moist, Oral mucosa: moist, Posterior pharynx: Airway: no evidence of obstruction, patent, Tonsils: no enlargement, no exudate, swelling, is not appreciated, erythema, that is mild, exudate, is not appreciated, Voice: is normal. 18:05 Neck: ROM/movement: is normal, is supple, without pain, no range of motions limitations, no meningismus, no nuchal rigidity, Lymph nodes: no appreciated lymphadenopathy. 18:05 Chest/axilla: Inspection: normal, Palpation: is normal, no crepitus, no tenderness. 18:05 Cardiovascular: Rate: normal, Rhythm: regular, Edema: is not appreciated, JVD: is not appreciated. 18:05 Respiratory: the patient does not display signs of respiratory distress, Respirations: labored breathing, that is mild, Breath sounds: decreased breath sounds, that are moderate, are located in both bases, wheezing: is not appreciated. 18:05 Abdomen/GI: Inspection: abdomen appears normal, Bowel sounds: active, all quadrants, Palpation: abdomen is soft and non-tender, in all quadrants, rebound tenderness, is not appreciated, voluntary guarding, is not appreciated, involuntary guarding, is not appreciated. 18:05 Back: pain, is absent, ROM is normal. 18:05 Skin: cellulitis, is not appreciated, no rash present. 18:05 Neuro: Orientation: to person, place \T\ time. Mentation: is normal, Cerebellar function: is grossly normal, Motor: moves all fours, strength is normal, Sensation: is normal. 18:30 ECG was reviewed by the Attending Physician. cp Vital Signs: 17:21 Pulse 76; Resp 18; Temp 98.1; Pulse Ox 89% on R/A; Weight 91.63 kg; Height 5 ft. 9 in. la1 (175.26 cm); 17:21 BP 159 / 90; la1 18:35 BP 158 / 81; Pulse 70; Resp 21; Pulse Ox 100% on Nebulizer Mask; ca1 18:50 BP 155 / 88; Pulse 71; Resp 21; Pulse Ox 97% on R/A; ca1 19:25 BP 162 / 80; Pulse 72; Resp 19; Pulse Ox 96% on 2 lpm NC; ca1 19:45 BP 146 / 92; Pulse 78; Resp 19; Pulse Ox 93% on R/A; ca1 20:21 BP 151 / 84; Pulse 71; Resp 18; Pulse Ox 94% on R/A; ca1 21:24 BP 152 / 75; Pulse 72; Resp 18; Pulse Ox 92% on R/A; ca1 17:21 Body Mass Index 29.83 (91.63 kg, 175.26 cm) la1 MDM: 17:24 Patient medically screened. cp 18:00 Differential Diagnosis: Influenza Pneumonia. cp 19:51 Physician consultation: Edi Carter MD was called at 19:51, was contacted at 19:51, cp regarding admission, to the telemetry unit. patient's condition. 19:55 Data reviewed: vital signs, nurses notes, lab test result(s), EKG, radiologic studies, cp plain films. 19:55 Test interpretation: by ED physician or midlevel provider: ECG, plain radiologic cp studies. Response to treatment: the patient's symptoms have mildly improved after treatment. 06/23 17:42 Order name: Basic Metabolic Panel; Complete Time: 19:01 cp 06/23 19:01 Interpretation: Normal except: CL 108; GLUC 136; GFR 78. cp 06/23 17:42 Order name: CBC with Diff; Complete Time: 19:01 cp 06/23 19:01 Interpretation: Normal except: MCV 87.9; MN% 15.4. cp 06/23 17:42 Order name: LFT's; Complete Time: 19:01 cp 06/23 17:42 Order name: Magnesium; Complete Time: 19:01 cp 06/23 17:42 Order name: NT PRO-BNP; Complete Time: 19:01 cp 06/23 17:42 Order name: PT-INR; Complete Time: 19:01 cp 06/23 17:42 Order name: Troponin (emerg Dept Use Only); Complete Time: 19:01 cp 06/23 17:42 Order name: Influenza Screen (a \T\ B); Complete Time: 19:01 cp 06/23 17:42 Order name: Strep; Complete Time: 19:01 cp 06/23 17:42 Order name: Procalcitonin; Complete Time: 19:01 cp 06/23 17:42 Order name: Lactate; Complete Time: 19:01 cp 06/23 17:42 Order name: Blood Culture Adult (2) cp 06/23 18:31 Order name: Throat Culture EDFL 06/23 20:56 Order name: Urine Dipstick--Ancillary (enter results) mt 06/23 17:42 Order name: EKG; Complete Time: 17:43 cp 06/23 17:42 Order name: Cardiac monitoring; Complete Time: 18:16 cp 06/23 17:42 Order name: EKG - Nurse/Tech; Complete Time: 18:29 cp 06/23 17:42 Order name: IV Saline Lock; Complete Time: 18:15 cp 06/23 17:42 Order name: Labs collected and sent; Complete Time: 18:16 cp 06/23 17:42 Order name: O2 Per Protocol; Complete Time: 18:15 cp 06/23 17:42 Order name: XRAY Chest Pa And Lat (2 Views); Complete Time: 19:51 cp 06/23 21:29 Order name: CONS Pharmacy Consult EDMS 06/23 21:29 Order name: Regular EDMS 06/23 21:29 Order name: CBC with Automated Diff EDMS 06/23 21:29 Order name: CBC with Automated Diff EDMS 06/23 21:29 Order name: Comprehensive Metabolic Panel EDMS 06/23 21:29 Order name: Comprehensive Metabolic Panel EDMS 06/23 17:42 Order name: O2 Sat Monitoring; Complete Time: 18:15 cp 06/23 19:29 Order name: Misc. Order: ambulate with pulse ox; Complete Time: 19:32 cp EC:30 Rate is 67 beats/min. Rhythm is regular. DC interval is normal. QRS interval is cp prolonged at 102 msec. QT interval is normal. T waves are Inverted in lead aVL. Interpreted by me. Reviewed by me. Administered Medications: 17:50 Drug: Albuterol - atroVENT (3:1) (2.5 mg - 0.5 mg) 3 ml Route: Nebulizer; ca1 20:18 Follow up: Response: No adverse reaction; Marked relief of symptoms ca1 19:30 Drug: SOLU-Medrol 125 mg Route: IVP; Site: right antecubital; ca1 20:18 Follow up: Response: No adverse reaction; Marked relief of symptoms ca1 21:31 Drug: XANax Tablet 0.25 mg Route: PO; ca1 21:35 Follow up: Response: No adverse reaction; Anxiety decreased ca1 Disposition: 06/24 12:05 Co-signature as Attending Physician, Anmol Sloan MD. Disposition: 06/23/18 19:57 Hospitalization ordered by Edi Carter for Observation. Preliminary diagnosis are Hypoxemia, Cough. - Bed requested for Telemetry/MedSurg (observation). - Status is Observation. ca1 - Condition is Stable. - Problem is new. - Symptoms have improved. UTI on Admission? No Signatures: Dispatcher [employer] EDMS Susana Noriega, RN RN Barrett Aggarwal RN RN la1 Jareth Pina PA PA cp Starr, Gregory, MD MD Kamari Eaton jp3 Dali Boswell RN RN ca1 Corrections: (The following items were deleted from the chart) 06/23 19:57 19:57 Hospitalization Ordered by Edi Carter MD for Inpatient Admission. Preliminary cp diagnosis is Hypoxemia; Cough. Bed requested for Telemetry/MedSurg (observation). Status is Inpatient Admission. Condition is Stable. Problem is new. Symptoms have improved. UTI on Admission? No. cp 21:33 19:57 06/23/2018 19:57 Hospitalization Ordered by Edi Carter MD for Observation. jp3 Preliminary diagnosis is Hypoxemia; Cough. Bed requested for Telemetry/MedSurg (observation). Status is Observation. Condition is Stable. Problem is new. Symptoms have improved. UTI on Admission? No. cp 22:13 21:33 06/23/2018 19:57 Hospitalization Ordered by Edi Carter MD for Observation. ca1 Preliminary diagnosis is Hypoxemia; Cough. Bed requested for Telemetry/MedSurg (observation). Status is Observation. Condition is Stable. Problem is new. Symptoms have improved. UTI on Admission? No. jp3
[2018-06-23 21:02] LABS: Urine Blood NEGATIVE (NEG); Urine Glucose 2+ (NEG); Urine Protein TRACE (NEG); Urine pH 7.5 (5.0-7.0)
[2018-06-23] MEDS ORDERED: MORPHINE 2 MG/ML SYR IV PRN (21:27)
[2018-06-23] MEDS ORDERED: ONDANSETRON 4 MG/2 ML VIAL IV PRN (21:27)
[2018-06-23] MEDS ORDERED: ACETAMINOPHEN 500 MG TAB PO PRN (21:27)
[2018-06-23] MEDS ORDERED: ALPRAZOLAM 0.5 MG TABLET ONE (21:40)
[2018-06-23] MEDS: NA CHLORIDE 0.9% 1,000 ML IV SCH (22:41)
[2018-06-23 23:54] LABS: Urine Appearance CLEAR; Urine Bilirubin NEGATIVE (NEG); Urine Blood NEGATIVE (NEG); Urine Color YELLOW; Urine Glucose 2+ (NEG); Urine Protein NEGATIVE (NEG); Urine Specific Gravity 1.025 (1.005-1.030); Urine pH 7.5 (5.0-7.0)
[2018-06-24 00:01] LABS: Urine Microscopic Reflex NO UMIC
[2018-06-24] MEDS: TEMAZEPAM 15 MG CAP PO PRN ×2 (01:02→21:31)
[2018-06-24 02:59] VITALS: BMI 29.8
[2018-06-24 06:11] LABS: Absolute Lymphocytes (CBC) 0.8 K/uL (0.7-4.9); Absolute Monocytes 0.1 K/uL (0.1-1.3); Absolute Neutrophil 3.4 K/uL (1.8-8.0); Basophils % 0.2 % (0-1.3); Hematocrit 45.2 % (39.6-49.0); Lymphocytes % 19.1 % (15.3-44.8); MPV 8.6 fL (7.6-11.3); Monocytes % 3.1 % (3.3-12.3); RBC Red Blood Cell Count 5.14 M/uL (4.33-5.43)
[2018-06-24] MEDS ORDERED: MELOXICAM 7.5 MG TAB PO PRN (06:17)
[2018-06-24] MEDS ORDERED: ONDANSETRON 4 MG (ODT) TAB PO PRN (06:17)
[2018-06-24 06:27] LABS: ALT/SGPT 15 U/L (12-78); AST/SGOT 10 U/L (15-37); Albumin 2.9 g/dL (3.4-5.0); Alkaline Phosphatase 98 U/L (45-117); BUN Blood Urea Nitrogen 17 mg/dL (7-18); Bicarbonate 27 mmol/L (21-32); Bilirubin Total 0.5 mg/dL (0.2-1.0); Glucose Level 267 mg/dL (74-106); Potassium 4.8 mmol/L (3.5-5.1); Protein, Total 6.4 g/dL (6.4-8.2); Sodium Level 139 mmol/L (136-145)
[2018-06-24] MEDS ORDERED: ALENDRONATE 70 MG TAB PO SCH ×2 (07:30→09:00)
--- NOTE | 2018-06-24 08:00 | P.HP ---
Certification for Inpatient Patient admitted to: Observation With expected LOS: <2 Midnights Patient will require the following post-hospital care: None Practitioner: I am a practitioner with admitting privileges, knowledge of patient current condition, hospital course, and medical plan of care. Services: Services provided to patient in accordance with Admission requirements found in Title 42 Section 412.3 of the Code of Federal Regulations Patient History Date of Service: 06/23/18 Reason for admission: Shortness of breath History of Present Illness: Patient presents to the hospital with cough and congestion. Patient was having shortness of breath. Patient came into the hospital for further work-up. Patient has numerous medical issues including hypertension, rheumatoid arthritis , Hannah's palsy. Patient has had a prior cardiac catheterization as well. In the emergency room his main complaint were fever coughing congestion. He was admitted for possible pneumonia but x-ray revealed no abnormal findings. He will be observation. On exam he does have some worrisome findings for CHF along with elevated BNP and mildly distended JVP and crackles. Will get an echocardiogram while he is in the hospital as well to further assess his status. Allergies Sulfa (Sulfonamide Antibiotics) Allergy (Verified 06/23/18 22:45) Hives Home Medications: Etanercept [Enbrel] 50 mg SQ EVERY 7TH DAY 11/03/15 Folic Acid 1 mg PO DAILY 11/03/15 Gabapentin [Neurontin] 800 mg PO TID 11/03/15 Pantoprazole [Protonix Tab*] 40 mg PO BID 10/31/16 Rosuvastatin [Crestor*] 20 mg PO BEDTIME 10/31/16 Insulin Lispro [Humalog] See Protocol SQ SEECOM 11/19/16 Alendronate Sodium 70 mg PO EVERY 7TH DAY 06/24/18 Amlodipine [Norvasc*] 5 mg PO NOON 06/24/18 Carvedilol 25 mg PO BID 06/24/18 Cyclobenzaprine [Flexeril*] 10 mg PO TID 06/24/18 Hydralazine [Apresoline*] 25 mg PO BID 06/24/18 Irbesartan [Avapro*] 150 mg PO BID 06/24/18 Levothyroxine Sodium [Synthroid] 75 mcg PO DAILY 06/24/18 Meloxicam 15 mg PO DAILY PRN 06/24/18 Ondansetron [Zofran (Odt)*] 4 mg PO Q8H PRN 06/24/18 - Past Medical/Surgical History Has patient received pneumonia vaccine in the past: Yes Diabetic: Yes -: HTN -: Diabetes type 1 -: High Cholesterol -: Rheumatoid arthritis -: Neuropathy -: 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 -: ORIF Right Ankle - 2001 -: Cardiac Cath - 2000 -: Fatty Tumor removal left arm - Family History Father Medical History: Cancer Notes: colon cancer Mother Medical History: Hypertension, Diabetes, Stroke, Cancer Notes: Breast and Uterine CA Sister Medical History: Diabetes Notes: one sister has chrons and another has gastroparesis - Social History Smoking Status: Never smoker Alcohol use: No CD- Drugs: No Caffeine use: Yes Place of Residence: Home Review of Systems 10-point ROS is otherwise unremarkable Physical Examination - Vital Signs Temperature: 98.3 F Blood Pressure: 137/63 Pulse: 68 Respirations: 18 Pulse Ox (%): 95 - Physical Exam General: Alert, In no apparent distress, Oriented x3 HEENT: Atraumatic, Normocephalic, PERRLA Neck: Supple, 2+ carotid pulse no bruit, JVD not distended, No Thyromegaly Respiratory: Clear to auscultation bilaterally, Normal air movement Cardiovascular: No edema, Normal pulses, Regular rate/rhythm, Normal S1 S2, No murmurs Gastrointestinal: Normal bowel sounds, Hypoactive, Soft and benign, Non- distended, No tenderness Musculoskeletal: No clubbing, No swelling, No contractures Integumentary: No rashes Neurological: Normal speech, Normal strength at 5/5 x4 extr, Normal tone, Sensation intact, Cranial nerves 3-12 intact - Studies Laboratory Data (last 24 hrs) 06/23/18 18:03: PT 11.0, INR 0.93 06/23/18 18:03: WBC 5.9, Hgb 15.8, Hct 46.5, Plt Count 186 06/23/18 18:03: Sodium 142, Potassium 4.4, BUN 17, Creatinine 1.01, Glucose 136 H, Magnesium 2.2, Total Bilirubin 0.4, AST 12 L, ALT 16, Alkaline Phosphatase 112 Microbiology Data (last 24 hrs): 06/23/18 18:10 Nasopharnyx Influenza Type A Antigen Screen - Final 06/23/18 18:10 Nasopharnyx Influenza Type B Antigen Screen - Final 06/23/18 18:10 Throat Group A Streptococcus Rapid Screen - Final Assessment & Plan - Problems (Diagnosis) (1) Shortness of breath Current Visit: Yes Status: Acute (2) Congestive heart failure Current Visit: Yes Status: Acute (3) Upper respiratory infection Current Visit: Yes Status: Acute (4) Diabetes Onset Date: 11/20/16 Current Visit: No Status: Acute (5) HTN (hypertension) Current Visit: No Status: Acute - Plan Plan: 1. Will check an echocardiogram to assess his cardiac status. He does have findings concerning for congestive heart failure. This may be causing a shortness of breath. His chest x-ray did not show a pneumonia. He may have an upper respiratory infection. Cultures have been negative. He will be admitted for observation pending his workup. If we do find any worrisome findings at that time we may be able to switch him to inpatient and do further inpatient workup. Discharge Plan: Home Plan to discharge in: 48 Hours - Advance Directives Does patient have a Living Will: No Does patient have a Durable POA for Healthcare: No - Code Status/Comfort Care Code Status Assessed: Yes Code Status: Full Code Critical Care: No Time Spent Managing PTS Care (In Minutes): 45
--- NOTE | 2018-06-24 09:11 | EKG ---
Test Date: 2018-06-23 Test Time: 18:21:43 Resource Management Planner: OLGA MEASUREMENT RESULTS: Intervals: Rate: 67 MA: 150 QRSD: 102 QT: 406 QTc: 429 [place]: P: 69 MA: 150 QRS: 94 T: 72 INTERPRETIVE STATEMENTS: Normal sinus rhythm Rightward axis Borderline ECG Compared to ECG 11/18/2016 16:28:10 Right-axis deviation now present Electronically Signed On 06-24-18 09:10:41 INDUSTRIAL CLEANING TECHNICIAN by Ronni Lewis
[2018-06-24] MEDS: HYDRALAZINE HCL 25 MG TABLET PO SCH ×2 (09:20→21:26)
[2018-06-24] MEDS: PANTOPRAZOLE 40MG TABLET PO SCH ×2 (09:20→21:27)
[2018-06-24] MEDS: CYCLOBENZAPRINE 10 MG TAB PO SCH ×3 (09:20→21:27)
[2018-06-24] MEDS: CARVEDILOL 25 MG TAB PO SCH ×2 (09:21→21:27)
[2018-06-24] MEDS: FOLIC ACID 1 MG TABLET PO SCH (09:21)
[2018-06-24] MEDS: GABAPENTIN 400 MG CAP PO SCH ×3 (09:21→21:26)
[2018-06-24] MEDS: IRBESARTAN 150 MG TAB PO SCH ×2 (09:22→21:26)
[2018-06-24] MEDS: NA CHLORIDE 0.9% 1,000 ML IV SCH (11:20)
--- NOTE | 2018-06-24 11:23 | P.SSS ---
Patient History Date of Service: 06/24/18 Reason for admission: Shortness of breath History of Present Illness: Patient presents to the hospital with cough and congestion. Patient was having shortness of breath. Patient came into the hospital for further work-up. Patient has numerous medical issues including hypertension, rheumatoid arthritis , Hannah's palsy. Patient has had a prior cardiac catheterization as well. In the emergency room his main complaint were fever coughing congestion. He was admitted for possible pneumonia but x-ray revealed no abnormal findings. He will be observation. On exam he does have some worrisome findings for CHF along with elevated BNP and mildly distended JVP and crackles. Will get an echocardiogram while he is in the hospital as well to further assess his status. Allergies Sulfa (Sulfonamide Antibiotics) Allergy (Verified 06/23/18 22:45) Hives Home Medications: Etanercept [Enbrel] 50 mg SQ EVERY 7TH DAY 11/03/15 Folic Acid 1 mg PO DAILY 11/03/15 Gabapentin [Neurontin] 800 mg PO TID 11/03/15 Pantoprazole [Protonix Tab*] 40 mg PO BID 10/31/16 Rosuvastatin [Crestor*] 20 mg PO BEDTIME 10/31/16 Insulin Lispro [Humalog] See Protocol SQ SEECOM 11/19/16 Alendronate Sodium 70 mg PO EVERY 7TH DAY 06/24/18 Amlodipine [Norvasc*] 5 mg PO NOON 06/24/18 Carvedilol 25 mg PO BID 06/24/18 Cyclobenzaprine [Flexeril*] 10 mg PO TID 06/24/18 Hydralazine [Apresoline*] 25 mg PO BID 06/24/18 Irbesartan [Avapro*] 150 mg PO BID 06/24/18 Levothyroxine Sodium [Synthroid] 75 mcg PO DAILY 06/24/18 Meloxicam 15 mg PO DAILY PRN 06/24/18 Ondansetron [Zofran (Odt)*] 4 mg PO Q8H PRN 06/24/18 - Past Medical/Surgical History Has patient received pneumonia vaccine in the past: Yes Diabetic: Yes -: HTN -: Diabetes type 1 -: High Cholesterol -: Rheumatoid arthritis -: Neuropathy -: 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 -: ORIF Right Ankle - 2001 -: Cardiac Cath - 2000 -: Fatty Tumor removal left arm - Family History Father -: Cancer Notes: colon cancer Mother -: Hypertension, Diabetes, Stroke, Cancer Notes: Breast and Uterine CA Sister -: Diabetes Notes: one sister has chrons and another has gastroparesis - Social History Smoking Status: Never smoker Alcohol use: No CD- Drugs: No Caffeine use: Yes Place of Residence: Home Review of Systems 10-point ROS is otherwise unremarkable Physical Examination - Vital Signs Temperature: 98.3 F Blood Pressure: 135/71 Pulse: 74 Respirations: 18 Pulse Ox (%): 95 - Physical Exam General: Alert, In no apparent distress HEENT: Atraumatic, PERRLA, Mucous membr. moist/pink, EOMI, Sclerae nonicteric Neck: Supple, 2+ carotid pulse no bruit, No LAD, Without JVD or thyroid abnormality Respiratory: Clear to auscultation bilaterally, Normal air movement Cardiovascular: Regular rate/rhythm, Normal S1 S2 Gastrointestinal: Normal bowel sounds, No tenderness Musculoskeletal: No tenderness Integumentary: No rashes Neurological: Normal gait, Normal speech, Normal strength at 5/5 x4 extr, Normal tone, Normal affect Lymphatics: No axilla or inguinal lymphadenopathy - Studies Laboratory Data (last 24 hrs) 06/23/18 18:03: PT 11.0, INR 0.93 06/23/18 18:03: WBC 5.9, Hgb 15.8, Hct 46.5, Plt Count 186 06/23/18 18:03: Sodium 142, Potassium 4.4, BUN 17, Creatinine 1.01, Glucose 136 H, Magnesium 2.2, Total Bilirubin 0.4, AST 12 L, ALT 16, Alkaline Phosphatase 112 Microbiology Data (last 24 hrs): 06/23/18 18:10 Nasopharnyx Influenza Type A Antigen Screen - Final 06/23/18 18:10 Nasopharnyx Influenza Type B Antigen Screen - Final 06/23/18 18:10 Throat Group A Streptococcus Rapid Screen - Final - Diagnosis (Problem(s)) (1) Congestive heart failure Current Visit: Yes Status: Ruled-out Qualifiers: Heart failure type: unspecified Heart failure chronicity: unspecified Qualified Code(s): I50.9 - Heart failure, unspecified (2) Shortness of breath Current Visit: Yes Status: Acute (3) Upper respiratory infection Current Visit: Yes Status: Acute Qualifiers: URI type: unspecified viral URI Qualified Code(s): J06.9 - Acute upper respiratory infection, unspecified (4) HTN (hypertension) Current Visit: No Status: Chronic Qualifiers: Hypertension type: essential hypertension Qualified Code(s): I10 - Essential (primary) hypertension Treatment Summary: Overall during the hospital stay patient remained stable The patient was initially admitted to the hospital for shortness of breath or cough and congestion. Patient had physical findings of congestive heart failure with crackles along with x-ray that was consistent with pulmonary congestion. Patient thus was admitted to the hospital to rule out CHF. Patient had an echocardiogram done here in the hospital which was consistent with normal findings. Patient shortness of breath was most likely secondary to upper respiratory illness secondary to viral infection. Patient was thus discharged home under stable condition was asked to follow up with primary care provider in about 1-2 days post discharge. Patient was given instructions on taking cough up over the counter along with doing treatments at home to help with his nasal congestion. Patient demonstrated understanding and thus was discharged home under stable condition once he was able to be weaned off of oxygen. Patient was saturating well and physical exam was within normal limits on discharge. - Disposition Disposition: ROUTINE DISCHARGE Condition: GOOD Patient Discharge Instructions: Please followup with your primary care provider and cardiology in about 1-2 weeks post discharge. Echocardiogram was done here in the hospital which was within normal limits. -Your shortness of breath is most likely secondary to upper respiratory infection. -You are advised to take over the counter cough drops along with Cool Mist Vaporizer to help with congestion Diet: Regular Activity: Ad [employer]
[2018-06-24] MEDS: AMLODIPINE 5 MG TAB PO SCH (13:00)
--- NOTE | 2018-06-24 13:48 | ECHO ---
HEIGHT: 5 ft 9 in WEIGHT: 202 lb 0 oz DATE OF STUDY: 06/24/[address]: Edi Carter MD 2-DIMENSIONAL: YES M.MODE: YES DOPPLER: YES COLOR FLOW: YES TDS: PORTABLE: DEFINITY: BUBBLE STUDY: DIAGNOSIS: DYSPNEA CARDIAC HISTORY: CATHERIZATION: SURGERY: PROSTHETIC VALVE: PACEMAKER: MEASUREMENTS (cm) DIASTOLIC (NORMALS) SYSTOLIC (NORMALS) IVSd 1.0 (0.6-1.2) LA Diam 3.9 (1.9-4.0) LVEF 74% LVIDd 4.8 (3.5-5.7) LVIDs 2.7 (2.0-3.5) %FS 43% LVPWd 1.0 (0.6-1.2) Ao Diam 3.0 (2.0-3.7) 2 DIMENSIONAL ASSESSMENT: RIGHT ATRIUM: NORMAL LEFT ATRIUM: NORMAL RIGHT VENTRICLE: NORMAL LEFT VENTRICLE: NORMAL TRICUSPID VALVE: NORMAL MITRAL VALVE: NORMAL PULMONIC VALVE: NORMAL AORTIC VALVE: NORMAL PERICARDIAL EFFUSION: NONE AORTIC ROOT: NORMAL LEFT VENTRICULAR WALL MOTION: NORMAL DOPPLER/COLOR FLOW: PHYSIOLOGIC TRICUSPID REGURGITATION. NORMAL RIGHT VENTRICULAR SYSTOLIC PRESSURE. COMMENTS: NORMAL TWO DIMENSIONAL ECHOCARDIOGRAM WITH DOPPLER. TECHNOLOGIST: KELLY PIKE
[2018-06-24] MEDS: IPRATROPIUM BROM 0.5MG/2.5ML NEB SCH ×2 (15:51→19:38)
[2018-06-24] MEDS: LEVALBUTEROL 0.63 MG/3 ML NEB NEB SCH ×2 (15:51→19:38)
[2018-06-24] MEDS: ROSUVASTATIN 10 MG TAB PO SCH (21:28)
[2018-06-25] MEDS: IPRATROPIUM BROM 0.5MG/2.5ML NEB SCH ×4 (01:32→20:30)
[2018-06-25] MEDS: LEVALBUTEROL 0.63 MG/3 ML NEB NEB SCH ×4 (01:32→20:30)
[2018-06-25] MEDS: LEVOTHYROXINE SOD 0.075 MG TAB PO SCH (05:55)
[2018-06-25] MEDS: GABAPENTIN 400 MG CAP PO SCH ×3 (08:52→20:54)
[2018-06-25] MEDS: IRBESARTAN 150 MG TAB PO SCH ×2 (08:53→20:53)
[2018-06-25] MEDS: CARVEDILOL 25 MG TAB PO SCH ×2 (08:53→20:54)
[2018-06-25] MEDS: PANTOPRAZOLE 40MG TABLET PO SCH ×2 (08:54→21:05)
[2018-06-25] MEDS: CYCLOBENZAPRINE 10 MG TAB PO SCH ×3 (08:54→20:52)
[2018-06-25] MEDS: FOLIC ACID 1 MG TABLET PO SCH (08:54)
[2018-06-25] MEDS: HYDRALAZINE HCL 25 MG TABLET PO SCH ×2 (08:55→20:54)
[2018-06-25] MEDS: AMLODIPINE 5 MG TAB PO SCH (11:35)
[2018-06-25] MEDS ORDERED: GUAIFENESIN/CODEINE 5ML UCUP PO PRN (12:37)
--- NOTE | 2018-06-25 16:55 | PN ---
Date of Progress Note: 06/25/2018 Subjective: The patient was seen and examined. Chart reviewed and case discussed with RN and Dr. Irvin steiner. The patient states overall he feels well, but becomes very short of breath with minimal exer tion. He has been hypoxic since admission. Medication list reviewed. Physical Examination: Vital Signs: Temperature 97.9, heart rate 66, blood pressure 127/78, respirations 20, O2 88% on room air. General: Awake, alert, oriented x3. Does not appear to be in any acute respiratory distress. CV: S1, S2. Regular rate and rhythm. Peripheral pulses present. Respiratory: Moving air well bilaterally. No wheezing. Gastrointestinal: Abdomen is soft, nontender, nondistended. Positive bowel sounds. Extremities: No clubbing, cyanosis, or edema. Neuro: Cranial nerves 2 through 12 intact grossly. No focal neurological deficit. Speech is normal . Laboratory Data: Labs are pending. Blood cultures, no growth to date. Sputum cultures pending. Assessment And Plan: A 52-year-old male with, 1.Acute respiratory distress. The patient has hypoxia and significant dyspnea upon exertion, unclea r etiology. Congestive heart failure was ruled out. The patient does have upper respiratory infecti on and likely has some underlying obstructive airway disease. 2.Congestive heart failure, ruled out. Ejection fraction is normal. 3.Upper respiratory tract infection. 4.Diabetes mellitus type 2, insulin requiring hyperglycemia. We will continue to monitor. 5.Hyperlipidemia, on Crestor, will continue. 6.Rheumatoid arthritis. 7.Neuropathy. Plan: We will consult Pulmonology. Would set up for home oxygen. Continue breathing treatments. Dayron light discharge in the next 24 to 48 hours. /MODL Voice ID: [id number] Report ID: [id number]
[2018-06-25] MEDS: ROSUVASTATIN 10 MG TAB PO SCH (20:53)
[2018-06-25] MEDS: TEMAZEPAM 15 MG CAP PO PRN (20:54)
[2018-06-26] MEDS: LEVALBUTEROL 0.63 MG/3 ML NEB NEB SCH ×2 (01:35→07:25)
[2018-06-26] MEDS: IPRATROPIUM BROM 0.5MG/2.5ML NEB SCH ×2 (01:35→07:25)
[2018-06-26] MEDS: LEVOTHYROXINE SOD 0.075 MG TAB PO SCH (05:52)
[2018-06-26 06:22] VITALS: BP 134/74
[2018-06-26 06:34] LABS: Absolute Lymphocytes (CBC) 2.4 K/uL (0.7-4.9); Absolute Neutrophil 2.5 K/uL (1.8-8.0); Basophils % 0.6 % (0-1.3); Eosinophils % 3.1 % (0-4.4); Hematocrit 48.9 % (39.6-49.0); MPV 8.3 fL (7.6-11.3); RBC Red Blood Cell Count 5.55 M/uL (4.33-5.43)
[2018-06-26 06:53] LABS: Albumin 2.9 g/dL (3.4-5.0); Bilirubin Total 0.4 mg/dL (0.2-1.0); Potassium 4.1 mmol/L (3.5-5.1); Protein, Total 6.4 g/dL (6.4-8.2)
[2018-06-26 07:40] LABS: Urine White Blood Cell Casts OK
[2018-06-26 07:41] LABS: Blood Morphology Comment NOT SEEN (NOT SEEN); Platelet Estimate ADEQ
[2018-06-26] MEDS: FOLIC ACID 1 MG TABLET PO SCH (08:36)
[2018-06-26] MEDS: CARVEDILOL 25 MG TAB PO SCH (08:36)
--- NOTE | 2018-06-26 08:36 | P.CNS ---
Date of Consult: 06/26/18 Chief Complaint: Shortness of breath History of Present Illness: 52 years of age has been sick for the past 2 weeks complaining of cough congestion admitted with shortness of breath he gets recurrent attacks of bronchitis since he was started on a rheumatoid arthritis injections patient does not smoke in fact she has never smoked no prior history of cardiac problems is feeling a lot better patient is a diabetic Allergies Sulfa (Sulfonamide Antibiotics) Allergy (Verified 06/23/18 22:45) Hives Home Medications: Etanercept [Enbrel] 50 mg SQ EVERY 7TH DAY 11/03/15 Folic Acid 1 mg PO DAILY 11/03/15 Gabapentin [Neurontin] 800 mg PO TID 11/03/15 Pantoprazole [Protonix Tab*] 40 mg PO BID 10/31/16 Rosuvastatin [Crestor*] 20 mg PO BEDTIME 10/31/16 Insulin Lispro [Humalog] See Protocol SQ SEECOM 11/19/16 Alendronate Sodium 70 mg PO EVERY 7TH DAY 06/24/18 Amlodipine [Norvasc*] 5 mg PO NOON 06/24/18 Carvedilol 25 mg PO BID 06/24/18 Cyclobenzaprine [Flexeril*] 10 mg PO TID 06/24/18 Hydralazine [Apresoline*] 25 mg PO BID 06/24/18 Irbesartan [Avapro*] 150 mg PO BID 06/24/18 Levothyroxine Sodium [Synthroid] 75 mcg PO DAILY 06/24/18 Meloxicam 15 mg PO DAILY PRN 06/24/18 Ondansetron [Zofran (Odt)*] 4 mg PO Q8H PRN 06/24/18 - Past Medical/Surgical History Diabetic: Yes -: HTN -: Diabetes type 1 -: High Cholesterol -: Rheumatoid arthritis -: Neuropathy -: 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 -: ORIF Right Ankle - 2001 -: Cardiac Cath - 2000 -: Fatty Tumor removal left arm - Family History Father Medical History: Cancer Notes: colon cancer Mother Medical History: Hypertension, Diabetes, Stroke, Cancer Notes: Breast and Uterine CA Sister Medical History: Diabetes Notes: one sister has chrons and another has gastroparesis - Social History Alcohol use: No CD- Drugs: No Caffeine use: Yes Place of Residence: Home Review of Systems 10-point ROS is otherwise unremarkable Physical Examination Temp Pulse Resp BP Pulse Ox 97.6 F 65 16 134/74 93 06/26/18 04:00 06/26/18 04:00 06/26/18 04:00 06/26/18 04:00 06/26/18 04:00 General: Alert, Oriented x3 HEENT: Atraumatic Neck: Supple Respiratory: Clear to auscultation bilaterally Cardiovascular: No edema, Regular rate/rhythm - Problems (1) Shortness of breath Current Visit: Yes Status: Acute Plan: Patient is 52 years of age admitted with a 2 week onset of cough congestion shortness of breath he was treated with Z-Cas no relief patient is on Enbrelfor rheumatoid arthritis and does get recurrent bronchitis chest x-rays abnormal has some interstitial changes prominent hilum which was present before patient' s chemistries are unremarkable sat is 93% on room air patient will not qualify for home oxygen is quite possible that he has Enbrel induced airway inflammation he will need outpatient pulmonary function testing including an inhaler
[2018-06-26] MEDS: CYCLOBENZAPRINE 10 MG TAB PO SCH (08:37)
[2018-06-26] MEDS: IRBESARTAN 150 MG TAB PO SCH (08:38)
[2018-06-26] MEDS: GABAPENTIN 400 MG CAP PO SCH (08:38)
[2018-06-26] MEDS: HYDRALAZINE HCL 25 MG TABLET PO SCH (08:38)
[2018-06-26] MEDS: PANTOPRAZOLE 40MG TABLET PO SCH (08:39)
[2018-06-26 09:52] VITALS: O2SAT 92
[2018-06-26] MEDS: AMLODIPINE 5 MG TAB PO SCH (12:43)
[2018-06-26 12:56] VITALS: TEMP 97.5
--- NOTE | 2018-06-27 13:03 | DS ---
Date of Discharge: 06/26/2018 Consultants: Dr. Mancini with Pulmonology. Admitting Diagnoses: 1.Shortness of breath. 2.Congestive heart failure. 3.Upper respiratory tract infection. 4.Diabetes. 5.Essential hypertension. Discharge Diagnoses: 1.Acute respiratory distress, resolving. 2.Hypoxia. 3.Dyspnea upon exertion. 4.Congestive heart failure, ruled out. Ejection fraction is normal. 5.Upper respiratory tract infection. 6.Interstitial lung disease, likely related to disease modifying antirheumatic drug, Enbrel. 7.Diabetes mellitus type 2, insulin requiring, with hyperglycemia. 8.Hyperlipidemia, on Crestor. 9.Rheumatoid arthritis. We will recommend stopping Enbrel. 10.Diabetic neuropathy. 11.Intermittent asthma. Hospital Course: The patient is a 52-year-old male with past medical history of rheumatoid arthritis on Enbrel, hyperlipidemia, diabetes, hypertension, comes in with shortness of breath. The patient w as thought to have CHF due to the chest x-ray showing some changes of congestion. The patient also h ad elevated BNP and distended JVD and crackles. Echocardiogram was done to rule out congestive heart failure. The ejection fraction was normal and congestive heart failure was ruled out. Again, EF of 74%. The patient, however, became hypoxic and had severe dyspnea upon exertion, requiring supplemen izzy oxygen. His O2 saturations were as low as 85%. The patient's imaging studies did reveal some in terstitial lung disease as well on top of his acute issues. This was likely thought to be due to his immunologic medication, Enbrel, which was recommended to be discontinued for now until the patient h as resolution of his pulmonary symptoms. The patient was scheduled for pulmonary function tests as a n outpatient through Dr. Mancini's office. Overall, he did well and his blood cultures remained neg ative. Influenza screen was negative. His throat culture and rapid strep screen were also negative. The patient's white blood cell count also remained stable. He was afebrile. There were no signs o f sepsis. The patient was then cleared for discharge. Initially, he had qualified for oxygen, [facility], will not likely require long-term oxygen due to his symptoms. The patient returned the oxygen to [facility]. Medications: As per medication reconciliation list. Followup: Follow up with primary care physician in 2 to 3 days. Follow up with Cardiology in about 1 to 2 weeks post discharge. Follow up with Pulmonology, Dr. Mancini in 1 week for pulmonary functi on tests. Diet: Diabetic diet. Activity: No strenuous activity. Physical Examination: General: Awake, alert, and oriented x3. No acute distress. CV: S1 and S2. No murmurs. Respiratory: Moving air well. Some rhonchi heard. Gastrointestinal: Abdomen is soft, nontender, and nondistended. Positive bowel sounds. Extremities: No clubbing, cyanosis, or edema. Neurologic: Nonfocal. Total time spent discharging the patient was 41 minutes. /AYSHA Voice ID: [id number] Report ID: [id number]
[2018-06-28] MEDS ORDERED: ETANERCEPT 50 MG SQ SCH (09:00)
== END 2018-06-26 12:55 | disposition home or self-care (01) | DRG 204 ==
LOC: ER 17:10 → ERHOLD 21:40 → 2ND 21:51 → OBSVTOIN 06-25 13:51
PROVIDERS: ADMIT Hospitalist; ATTEND Family Medicine
DX: R06.03 Acute respiratory distress (principal); J06.9 Acute upper respiratory infection, unspecified; E10.40 Type 1 diabetes mellitus with diabetic neuropathy, unspecified; E10.65 Type 1 diabetes mellitus with hyperglycemia; Z79.4 Long term (current) use of insulin; R09.02 Hypoxemia; E78.5 Hyperlipidemia, unspecified; M06.9 Rheumatoid arthritis, unspecified; J45.20 Mild intermittent asthma, uncomplicated; I10 Essential (primary) hypertension; G51.0 Bell's palsy; Z88.2 Allergy status to sulfonamides
CPT/HCPCS: 36415; 71046; 80048; 80053; 80076; 81003; 82962; 83605; 83735; 83880; 84145; 84484; 85025; 85610; 87040; 87070; 87081; 87804; 93005; 93306; 94640; 96374; 99285; G0378; J2930; J7030

== ENCOUNTER 2022-09-13 21:00 | Emergency (ER) | payer BC, OTHER ==
--- OUTSIDE RECORDS SUMMARY | 2022-09-13 21:29 | XMS REPORT | Continuity of Care Document ---
:1965 Author Organization [facility] t Address [address] [place] [address] [place] [id number] Care Team Providers Name Role Phone GENIA ROMAN JR Primary Care Physician Unavailable Rudy_Aidee Attending Clinician Unavailable RADIOLOGY Attending Clinician Unavailable Radiology Attending Clinician Unavailable Doctor Unassigned, [place] Attending Clinician Unavailable AGGIE NUNO Attending Clinician Unavailable Cheyenne Reddy PTA Attending Clinician Unavailable Aggie Nuno MD Attending Clinician John Reddy PTA Attending Clinician Unavailable Lia Ferguson PT Attending Clinician Unavailable Shae Julien RN Attending Clinician Unavailable UNKNOWN, ATTENDING Attending Clinician Unavailable Unknown, Attending Attending Clinician Unavailable Pob, Adc Lab Main Attending Clinician Unavailable Gamaliel Ferrera MD Attending Clinician GAMALIEL FERRERA Attending Clinician Unavailable Sherwin Sharp DO Attending Clinician Thu Castro PT Attending Clinician Unavailable Only, Adc Test Attending Clinician Unavailable Jurgen Meraz Attending Clinician [phone] Rojelio Lynn MD Attending Clinician JURGEN PARADA Attending Clinician Unavailable JEFFREY GONZALEZ Attending Clinician Unavailable Jeffrey Carlin Attending Clinician Stephanie Holder Attending Clinician JOSEY FLETCHER M.D. Attending Clinician Unavailable Josey Fletcher Attending Clinician Rommel Admitting Clinician Unavailable STEPHANIE HOLDER Admitting Clinician Unavailable JURGEN PARADA Admitting Clinician Unavailable Josey Fletcher Admitting Clinician Payers Payer Name Policy Type Policy Number Effective Date Expiration Date Mercedez astudillo [id number] 2016 [place] (PP[place] 00:00:00 [place]: [id number] 1998 [employer] 00:00:00 [place] [id number] 2013 EMPLOYEE PLAN 00:00:00 MEDICARE PART A [id number] 1998 \\T\\ B 00:00:00 Problems Condition Condition Condition Status Onset Resolution Last Treating Co mments Source Name Details Category Date Date Treatment Clinician Date Vitamin Vitamin Problem Active [facility] B12 B12 6-02 Family deficiency Deficiency 00:00: Pr actic (non (Non 00 e anemic) Anemic) Leukocytos Leukocytos Problem Active [facility] is is 2-20 Family 00:00: Practic 00 e Morbid Morbid Problem Active [facility] obesity Obesity 2-15 Family 00:00: Practic 00 e Insulin Insulin Problem Active [facility] pump Pump 2-15 Family present Present 00:00: Practic 00 e Rheumatoid Rheumatoid Problem Active 2019-04 [facility] arthritis Arthritis 0-16 Fami ly 00:00: Practic 00 e Type 1 Type 1 Problem Active 2019-04 [facility] diabetes Diabetes 0-16 Family mellitus Mellitus 00:00: Practi c 00 e Hyperlipid Hyperlipid Problem Active 2019-04 [facility] emia emia 0-16 Family 00:00: Practic 00 e Impotence Impotence Problem Active 2017-04 Nivia randy 0-03 Family 00:00: Practic 00 e Primary Primary Problem Active 2017-04 [facility] erectile Erectile 0-03 Family dysfunctio Dysfunctio 00:00: Pr actic n n 00 e Osteoporos Osteoporos Problem Active 2017-04 [facility] is is 0-03 Family 00:00: Practic 00 e UNK UNK Diagnosis Active 2018-01-03 Mem oria Active 12-14 12:00:00 l 12/14/2017 00:00: Wander mobley 00 [place] K31.84 K31.84 Diagnosis Active 2017-12-17 Me moria Active 12-12 08:24:00 l 12/12/2017 00:00: Wander mobley 00 [facility] Creatinine Creatinine Disease Active U nivers elevation elevation 7-12 ity of 00:00: [place] 00 Medical Branch Encounter Encounter Disease Active Uni vers for for 7-11 ity of long-term long-term 00:00: Jamie greenberg (current) (current) 00 Medi brian use of use of Branch NSAIDs NSAIDs Essential Essential Problem Active Nivia randy hypertensi Hypertensi 3-26 Fa thomas on on 00:00: Practic 00 e Hypertensi Hypertensi Problem Active [facility] ve ve 3-26 Family disorder Disorder 00:00: Practi c 00 e Rheumatoid Rheumatoid Problem Active [facility] factor Factor 3-26 Family positive Positive 00:00: Practi c rheumatoid Rheumatoid 00 e arthritis Arthritis Other Other Disease Active Univers osteoporos osteoporos 2-13 it [place] 00 Medical pathologic pathologic Br anch al al fracture fracture Rheumatoid Rheumatoid Disease Active 2016-04 U nivers arthritis arthritis 2-14 ity of involving involving 00:00: Jamie greenberg multiple multiple 00 Medica l sites with sites with Br anch positive positive rheumatoid rheumatoid factor: RF factor: RF 34, CCP 34, CCP 218 218 Immunizati Immunizati Disease Active 2016-04 U rickers on on 06-06 [place] counseling [place] [facility] [place] At risk At risk Disease Active 2016-04 Univers for bone for bone 2-14 ity of density density 00:00: [place] loss loss Medical Branch Other Other Disease Active 2016-04 Univers specified specified 2-14 ity of hypothyroi [place]othyro[place] dism dism 00 [facility] Gastroesop Gastroesop Problem Active 2016-04 [facility] hageal hageal 1-20 Family reflux Reflux 00:00: Practic disease Disease 00 e without without esophagiti Esophagiti s s Gastropare Gastropare Problem Active 2016-04 [facility] sis sis 1-20 Family syndrome Syndrome 00:00: Practi c 00 e Long-term Long-term Problem Active 2016-04 Nivia padilla current Current 1-20 Family use of Use of 00:00: Practic insulin Insulin 00 e Peripheral Peripheral Problem Active 2016-04 [facility] neuropathy Neuropathy 1-20 Fa thomas due to Due to 00:00: Practic type 1 Type 1 00 e diabetes Diabetes mellitus Mellitus Hypothyroi Hypothyroi Problem Active 2016-04 [facility] dism dism 20 Family 00:00: Practic 00 e Arthritis Arthritis Problem Active 2016-04 Nivia gutiérreze 20 Family 00:00: Practic 00 e Hypoglycem Hypoglycem Problem Active 2016-04 [facility] ia ia 20 Family 00:00: Practic 00 e Obesity Obesity Problem Active 2016-04 [place] 05-12 Family 00:00: Practic 00 e Body mass Body Mass Problem Active 2016-04 Nivia padilla index 30+ Index 30+ 1-20 Fami ly - obesity - Obesity 00:00: Prac tic 00 e DX: DX: Diagnosis Active 2016-11-30 Mem oria K21.9=VIRGILIO K21.9=VIRGILIO 8-09 09:09:00 l RO-ESOPHAG RO-ESOPHAG 00:00: He rmann EAL REFLUX EAL REFLUX 00 DISEA DISEA Active 11/29/2016 [facility] HTN HTN Disease Active Univers (hypertens (hypertens 10-22 it y of ion) ion) 00:00: Medical Branch Hypothyroi Hypothyroi Disease Active Overview : Univers dism dism 10-22 Formattin ity of 00:00: g of this note Medical might be Branch different from the original. ICD10 Diagnosis Term Legal Specialist Utility Hyperlipem Hyperlipem Disease Active U nivers ia ia 10-22 ity of 00:00: [place] [facility] Osteoarthr Osteoarthr Disease Active U nivers itis itis 10-22 ity of 00:00: Medical Branch Neuropathy Neuropathy Disease Active U nivers 10-22 ity of 00:00: [place] [facility] DM type 1 DM type 1 Disease Active Uni vers (diabetes (diabetes 10-22 ity of mellitus, mellitus, [place] type 1[place] type 1) 00 Medical Branch History of History of Problem Resolve [place] diabetes diabetes HL7.CCDAR2 d Ph ysici mellitus mellitus ans History of History of Problem Resolve [place] epigastric epigastric HL7.CCDAR2 d Physici pain pain ans History of History of Problem Resolve [place] essential essential HL7.CCDAR2 d Physici hypertensi hypertensi an s on on History of History of Problem Resolve [place] heartburn heartburn HL7.CCDAR2 d Physici ans History of History of Problem Resolve [place] hiatal hiatal HL7.CCDAR2 d Physic i hernia hernia ans History of History of Problem Resolve [place] hyperchole hyperchole HL7.CCDAR2 d Physici sterolemia sterolemia an s History of History of Problem Resolve [place] Regurgitat Regurgitat HL7.CCDAR2 d Physici ion ion ans History of History of Problem Resolve [place] rheumatoid rheumatoid HL7.CCDAR2 d Physici arthritis arthritis ans Aftercare Aftercare Problem Active [facility] following following HL7.CCDAR2 Physici surgery surgery ans History of History of Problem Resolve [place] Loss of Loss of HL7.CCDAR2 d Phys ici appetite appetite ans History of History of Problem Resolve [place] abnormal abnormal HL7.CCDAR2 d Ph ysici weight weight ans loss loss History of History of Problem Resolve [facility] nausea and nausea and HL7.CCDAR2 d Physici vomiting vomiting ans Rectal Rectal Problem Active [facility] mass mass HL7.CCDAR2 Physic i ans Nausea Nausea Problem 2018-07-06 Kishan hoang with with 12:42:34 l vomiting, vomiting, Herm jose unspecifie unspecifie d d 07/06/2018 [facility] Diaphragma Diaphragm Problem 2018-07-10 Memoria tic hernia atic 12:28:05 l without hernia [place] obstructio without n or obstructio gangrene n or gangrene 07/10/2018 [facility] Unspecifie Unspecifi Problem 2018-07-10 Memoria d chronic ed chronic 12:28:05 l gastritis gastritis Herm jose without without bleeding bleeding 07/10/2018 [facility] Esophageal Problem 2018-07-10 M emoria obstructio Esophageal 12:28:05 l n obstructio Wander n n 07/10/2018 [facility] Gastro-eso Gastro-es Problem 2018-07-10 Memoria phageal ophageal 12:28:05 l reflux reflux [place] disease disease with with esophagiti esophagiti s s 07/10/2018 [facility] Benign Benign Problem Active 2021-11-02 Kishan hoang essential essential 02:45:14 l hypertensi hypertensi He rmann on on Active Problem 11/02/2021 [facility] Hyperlipid Hyperlipi Problem 2018-07-10 Memoria lauren demia, 12:28:05 l unspecifie unspecifie He rmann d d 07/10/2018 [facility] Hypothyroi Hypothyro Problem 2018-07-10 Memoria dism, idism, 12:28:05 l unspecifie unspecifie He rmann d d 07/10/2018 [facility] Type 2 Type 2 Problem 2018-07-10 Kishan hoang diabetes diabetes 12:28:05 l mellitus mellitus Wander n with with diabetic diabetic neuropathy neuropathy , , unspecifie unspecifie d d 07/10/2018 [facility] Rheumatoid Rheumatoi Problem 2018-07-10 Memoria arthritis, d 12:28:05 l unspecifie arthritis, He rmann d unspecifie d 07/10/2018 [facility] Personal Personal Problem 2018-07-10 Memoria history of history of 12:28:05 l nicotine nicotine Wander n dependence 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 Diabetes Diabetes Problem Active 2019-04-30 Memoria mellitus mellitus 23:48:40 l (disorder) (disorder) He rmann Active Problem 04/30/2019 [facility] [place] [facility] Hiatal Hiatal Problem Active 2019-04-30 Mem oria hernia hernia 23:48:40 l with with [place] gastroesop gastroesop hageal hageal reflux reflux disease disease (disorder) (disorder) Active Problem 04/30/2019 [facility] [place] [facility] Encounter Encounter Problem Active 2021-11-02 Memoria for for 02:45:14 l therapeuti therapeuti He rmann c drug c drug level level monitoring monitoring Active Problem 11/02/2021 [facility] Other Other Problem Active 2021-11-02 Memor ia osteoporos osteoporos 02:45:14 l is is Active Jann Problem 11/02/2021 [facility] Encounter Encounter Problem Active 2021-11-02 Memoria for for 02:45:14 l immunizati immunizati He rmann on on Active Problem 11/02/2021 [facility] Seropositi Seroposit Problem Active 2021-11-02 Memoria ve rivera 02:45:14 l rheumatoid rheumatoid He rmann arthritis arthritis of of multiple multiple joints joints Active Problem 11/02/2021 [facility] Low back Low back Problem Active 2021-11-02 Memoria pain pain 02:45:14 l Active Jann Problem 11/02/2021 [facility] Pain in Pain in Problem Active 2021-11-02 Me moria knee knee 02:45:14 l Active [place] Problem 11/02/2021 [facility] Encntr Encntr Problem Active 2021-11-02 Kishan hoang long-term long-term 02:45:14 l NSAID use NSAID use Herm jose Active Problem 11/02/2021 [facility] DIAPHRAGMA DIAPHRAGM Diagnosis Active 2016-12-05 Memoria TIC HERNIA ATIC 14:30:00 l WITHOUT HERNIA [place] OBSTRUCTIO WITHOUT N OBSTRUCTIO N Active [place] EPIGASTRIC EPIGASTRI Diagnosis Active 2016-12-05 Memoria PAIN C PAIN 14:30:00 l Active Jann [place] GASTROPARE GASTROPAR Diagnosis Active 2017-12-17 Memoria SIS ESIS 08:24:00 l Active Wander n [place] Diaphragma Diaphragma Problem Active [facility] tic hernia tic Hernia Fa thomas Practic e Neuropathy Neuropathy Problem Active [facility] due to Due to Family type 1 Type 1 Practic diabetes Diabetes e mellitus Mellitus Clinical Clinical Problem Active [facility] ge finding Finding Family Practic e Anemia Anemia Problem Active [facility] History of Past Illness Condition Condition Condition Status Onset Resolution Last Treating Co mments Source Name Details Category Date Date Treatment Clinician Date Unspecifie Unspecifi Problem 2017-2018-07-10 2018-07-10 Memoria d ed 12-30 12:28:05 12:28:05 l abdominal abdominal 02:46: Herm jose pain pain 33 12/30/2017 07/10/2018 [place] Gastropare Problem 2017-2018-07-06 2018-07-06 Memoria sis Gastropare 12-22 12:42:34 12:42:34 l sis 04:12: Jann 12/22/2017 15 07/06/2018 [facility] Allergies, Adverse Reactions, Alerts Allergy Allergy Status Severity Reaction(s) Onset Inactive Treating Comm ents Source Name Type Date Date Clinician Sulfacet Sulfacet Active rash Memori a -R -R 3-14 l 00:00: Jann 00 SULFA Drug Active Rash Univers (SULFONA Class 6-23 ity of MIDE 00:00: [place] ANTIBIOT 00 Medical ICS) Branch Sulfa Propensi Active Rash Univers (Sulfona ty to 6-23 ity of mide adverse 00:00: [place] Antibiot reaction 00 Medica l ics) s Branch Sulfa Propensi Active Rash Univers (Sulfona ty to 6-23 ity of mide adverse 00:00: [place] Antibiot reaction 00 Medica l ics) s Branch SULFA Allergy Active [place] (SULFONA to Family MIDE substanc Practic ANTIBIOT e e ICS) sulfa sulfa Active Memoria drugs drugs l Jann Family History Family Member Diagnosis Comments Start Date Stop Date Source Mother Family history of malignant [facility] neoplasm of cervix Mother Family history of colon [facility] Father Family history of colon [facility] Social History Social Habit Start Date Stop Date Quantity Comments Source History of Chews Tobacco University of tobacco use [facility] Exposure to 2022-05-23 2022-06-02 Not sure [facility] SARS-CoV-2 00:00:00 15:14:00 [facility] (event) [place] Alcohol intake 2019-06-18 2019-06-18 Current University of 00:00:00 00:00:00 non-drinker of [facility] alcohol (finding) [place] Tobacco use and 2017-04-05 2017-04-05 Former smokeless Uni versity of exposure 00:00:00 00:00:00 [facility] Social History 2016-11-30 2016-11-30 [facility] 14:31:08 14:31:08 [birth year] Universit y of 00:00:00 00:00:00 [facility] Smoking Status Start Date Stop Date Source Never Smoker [facility] Medications Ordered Filled Start Stop Current Ordering Indication Dosage Frequency Signature Comments Components Source Medication Medication Date Date Medication? Clinician (SIG) Name Name Gabapentin Yes Nilanjana TAKE ONE Memoria 3-15 Tracie TABLET BY l 02:45: MOUTH 06 THREE TIMES DAILY Humalog Yes Nilanjana not Memor ia 3-15 Tracie defined l 02:45: Carvedilol Yes Nilanjana 1 tablet Memoria 3-15 Tracie with food l 02:45: NovoLog Yes Nilanjana as Memor ia 3-15 Tracie directed l 02:45: Protonix Yes Nilanjana 1 tablet Memoria 3-15 Tracie l 02:45: Alendronate Yes Nilanjana not M emoria Sodium 3-15 Tracie defined l 02:45: HydrALAZINE Yes Nilanjana 1 tablet Memoria HCl 3-15 Tracie l 02:45: Diovan Yes Nilanjana 1 Memori a 3-15 Tracie l 02:45: Amoxicillin Yes Nilanjana 2 capsules Memoria 3-15 Tracie l 02:45: Cyclobenzap Yes Nilanjana TAKE ONE Memoria rine HCl 3-15 Tracie TABLET BY l 02:45: MOUTH 06 TWICE DAILY NEEDED Folic Acid Yes Nilanjana TAKE 1 Memoria 3-15 Tracie TABLET BY l 02:45: MOUTH 06 EVERY DAY Levothyroxi Yes Nilanjana 1 tablet Memoria ne Sodium 3-15 Tracie every l 02:45: morning on an empty stomach Crestor Yes Nilanjana 1 tablet M emoria 3-15 Tracie l 02:45: Enbrel Mini Yes Nilanjana 1 ml M emoria 3-15 Tracie syringe l 02:45: Celebrex Yes Nilanjana 1 capsule Memoria 3-15 Tracie with food l 02:45: Gabapentin Yes Nilanjana TAKE ONE Memoria 3-15 Tracie TABLET BY l 02:45: MOUTH 06 THREE TIMES DAILY Humalog Yes Nilanjana not Memor ia 3-15 Tracie defined l 02:45: Carvedilol Yes Nilanjana 1 tablet Memoria 3-15 Tracie with food l 02:45: NovoLog Yes Nilanjana as Memor ia 3-15 Tracie directed l 02:45: Protonix Yes Nilanjana 1 tablet Memoria 3-15 Tracie l 02:45: Alendronate Yes Nilanjana not M emoria Sodium 3-15 Tracie defined l 02:45: HydrALAZINE Yes Nilanjana 1 tablet Memoria HCl 3-15 Tracie l 02:45: Diovan Yes Nilanjana 1 Memori a 3-15 Tracie l 02:45: Amoxicillin Yes Nilanjana 2 capsules Memoria 3-15 Tracie l 02:45: Cyclobenzap Yes Nilanjana TAKE ONE Memoria rine HCl 3-15 Tracie TABLET BY l 02:45: MOUTH TWICE DAILY NEEDED Folic Acid Yes Nilanjana TAKE 1 Memoria 3-15 Tracie TABLET BY l 02:45: MOUTH 06 EVERY DAY Levothyroxi Yes Nilanjana 1 tablet Memoria ne Sodium 3-15 Tracie every l 02:45: morning on an empty stomach Crestor Yes Nilanjana 1 tablet M emoria 3-15 Tracie l 02:45: Enbrel Mini Yes Nilanjana 1 ml M emoria 3-15 Tracie syringe l 02:45: Celebrex Yes Nilanjana 1 capsule Memoria 3-15 Tracie with food l 02:45: Gabapentin Yes Nilanjana TAKE ONE Memoria 3-15 Tracie TABLET BY l 02:45: MOUTH 06 THREE TIMES DAILY Humalog Yes Nilanjana not Memor ia 3-15 Tracie defined l 02:45: Carvedilol Yes Nilanjana 1 tablet Memoria 3-15 Tracie with food l 02:45: NovoLog Yes Nilanjana as Memor ia 3-15 Tracie directed l 02:45: Protonix Yes Nilanjana 1 tablet Memoria 3-15 Tracie l 02:45: Alendronate Yes Nilanjana not M emoria Sodium 3-15 Tracie defined l 02:45: HydrALAZINE Yes Nilanjana 1 tablet Memoria HCl 3-15 Tracie l 02:45: Diovan Yes Nilanjana 1 Memori a 3-15 Tracie l 02:45: Amoxicillin Yes Nilanjana 2 capsules Memoria 3-15 Tracie l 02:45: Cyclobenzap Yes Nilanjana TAKE ONE Memoria rine HCl 3-15 Tracie TABLET BY l 02:45: MOUTH TWICE DAILY NEEDED Folic Acid Yes Nilanjana TAKE 1 Memoria 3-15 Tracie TABLET BY l 02:45: MOUTH EVERY DAY Levothyroxi Yes Nilanjana 1 tablet Memoria ne Sodium 3-15 Tracie every l 02:45: morning on an empty stomach Crestor Yes Nilanjana 1 tablet M emoria 3-15 Tracie l 02:45: Enbrel Mini Yes Nilanjana 1 ml M emoria 3-15 Tracie syringe l 02:45: Celebrex Yes Nilanjana 1 capsule Memoria 3-15 Tracie with food l 02:45: Gabapentin Yes Nilanjana TAKE ONE Memoria 3-15 Tracie TABLET BY l 02:45: MOUTH THREE TIMES DAILY Humalog Yes Nilanjana not Memor ia 3-15 Tracie defined l 02:45: Carvedilol Yes Nilanjana 1 tablet Memoria 3-15 Tracie with food l 02:45: NovoLog Yes Nilanjana as Memor ia 3-15 Tracie directed l 02:45: Protonix Yes Nilanjana 1 tablet Memoria 3-15 Tracie l 02:45: Alendronate Yes Nilanjana not M emoria Sodium 3-15 Tracie defined l 02:45: HydrALAZINE Yes Nilanjana 1 tablet Memoria HCl 3-15 Tracie l 02:45: Diovan Yes Nilanjana 1 Memori a 3-15 Tracie l 02:45: Amoxicillin Yes Nilanjana 2 capsules Memoria 3-15 Tracie l 02:45: Cyclobenzap Yes Nilanjana TAKE ONE Memoria rine HCl 3-15 Tracie TABLET BY l 02:45: MOUTH 06 TWICE DAILY NEEDED Folic Acid Yes Nilanjana TAKE 1 Memoria 3-15 Tracie TABLET BY l 02:45: MOUTH EVERY DAY Levothyroxi Yes Nilanjana 1 tablet Memoria ne Sodium 3-15 Tracie every l 02:45: morning on an empty stomach Crestor Yes Nilanjana 1 tablet M emoria 3-15 Tracie l 02:45: Enbrel Mini Yes Nilanjana 1 ml M emoria 3-15 Tracie syringe l 02:45: Celebrex Yes Nilanjana 1 capsule Memoria 3-15 Tracie with food l 02:45: Gabapentin Yes Nilanjana TAKE ONE Memoria 3-15 Tracie TABLET BY l 02:45: MOUTH 06 THREE TIMES DAILY Humalog Yes Nilanjana not Memor ia 3-15 Tracie defined l 02:45: Carvedilol Yes Nilanjana 1 tablet Memoria 3-15 Tracie with food l 02:45: NovoLog Yes Nilanjana as Memor ia 3-15 Tracie directed l 02:45: Protonix Yes Nilanjana 1 tablet Memoria 3-15 Tracie l 02:45: Alendronate Yes Nilanjana not M emoria Sodium 3-15 Tracie defined l 02:45: HydrALAZINE Yes Nilanjana 1 tablet Memoria HCl 3-15 Tracie l 02:45: Diovan Yes Nilanjana 1 Memori a 3-15 Tracie l 02:45: Amoxicillin Yes Nilanjana 2 capsules Memoria 3-15 Tracie l 02:45: Cyclobenzap Yes Nilanjana TAKE ONE Memoria rine HCl 3-15 Tracie TABLET BY l 02:45: MOUTH 06 TWICE DAILY NEEDED Folic Acid Yes Nilanjana TAKE 1 Memoria 3-15 Tracie TABLET BY l 02:45: MOUTH 06 EVERY DAY Levothyroxi Yes Nilanjana 1 tablet Memoria ne Sodium 3-15 Tracie every l 02:45: morning on an empty stomach Crestor Yes Nilanjana 1 tablet M emoria 3-15 Tracie l 02:45: Enbrel Mini Yes Nilanjana 1 ml M emoria 3-15 Tracie syringe l 02:45: Celebrex Yes Nilanjana 1 capsule Memoria 3-15 Tracie with food l 02:45: Gabapentin Yes Nilanjana TAKE ONE Memoria 3-15 Tracie TABLET BY l 02:45: MOUTH 06 THREE TIMES DAILY Humalog Yes Nilanjana not Memor ia 3-15 Tracie defined l 02:45: Carvedilol Yes Nilanjana 1 tablet Memoria 3-15 Tracie with food l 02:45: NovoLog Yes Nilanjana as Memor ia 3-15 Tracie directed l 02:45: Protonix Yes Nilanjana 1 tablet Memoria 3-15 Tracie l 02:45: Alendronate Yes Nilanjana not M emoria Sodium 3-15 Tracie defined l 02:45: HydrALAZINE Yes Nilanjana 1 tablet Memoria HCl 3-15 Tracie l 02:45: Diovan Yes Nilanjana 1 Memori a 3-15 Tracie l 02:45: Amoxicillin Yes Nilanjana 2 capsules Memoria 3-15 Tracie l 02:45: Cyclobenzap Yes Nilanjana TAKE ONE Memoria rine HCl 3-15 Tracie TABLET BY l 02:45: MOUTH 06 TWICE DAILY NEEDED Folic Acid Yes Nilanjana TAKE 1 Memoria 3-15 Tracie TABLET BY l 02:45: MOUTH 06 EVERY DAY Levothyroxi Yes Nilanjana 1 tablet Memoria ne Sodium 3-15 Tracie every l 02:45: morning on an empty stomach Crestor Yes Nilanjana 1 tablet M emoria 3-15 Tracie l 02:45: Enbrel Mini Yes Nilanjana 1 ml M emoria 3-15 Tracie syringe l 02:45: Celebrex Yes Nilanjana 1 capsule Memoria 3-15 Tracie with food l 02:45: Gabapentin Yes Nilanjana TAKE ONE Memoria 3-15 Tracie TABLET BY l 02:45: MOUTH 06 THREE TIMES DAILY Humalog Yes Nilanjana not Memor ia 3-15 Tracie defined l 02:45: Carvedilol Yes Nilanjana 1 tablet Memoria 3-15 Tracie with food l 02:45: NovoLog Yes Nilanjana as Memor ia 3-15 Tracie directed l 02:45: Protonix Yes Nilanjana 1 tablet Memoria 3-15 Tracie l 02:45: Alendronate Yes Nilanjana not M emoria Sodium 3-15 Tracie defined l 02:45: HydrALAZINE Yes Nilanjana 1 tablet Memoria HCl 3-15 Tracie l 02:45: Diovan Yes Nilanjana 1 Memori a 3-15 Tracie l 02:45: Amoxicillin Yes Nilanjana 2 capsules Memoria 3-15 Tracie l 02:45: Cyclobenzap Yes Nilanjana TAKE ONE Memoria rine HCl 3-15 Tracie TABLET BY l 02:45: MOUTH TWICE DAILY NEEDED Folic Acid Yes Nilanjana TAKE 1 Memoria 3-15 Tracie TABLET BY l 02:45: MOUTH EVERY DAY Levothyroxi Yes Nilanjana 1 tablet Memoria ne Sodium 3-15 Tracie every l 02:45: morning on an empty stomach Crestor Yes Nilanjana 1 tablet M emoria 3-15 Tracie l 02:45: Enbrel Mini Yes Nilanjana 1 ml M emoria 3-15 Tracie syringe l 02:45: Celebrex Yes Nilanjana 1 capsule Memoria 3-15 Tracie with food l 02:45: Gabapentin Yes Nilanjana TAKE ONE Memoria 3-15 Tracie TABLET BY l 02:45: MOUTH THREE TIMES DAILY Humalog Yes Nilanjana not Memor ia 3-15 Tracie defined l 02:45: Carvedilol Yes Nilanjana 1 tablet Memoria 3-15 Tracie with food l 02:45: NovoLog Yes Nilanjana as Memor ia 3-15 Tracie directed l 02:45: Protonix Yes Nilanjana 1 tablet Memoria 3-15 Tracie l 02:45: Alendronate Yes Nilanjana not M emoria Sodium 3-15 Tracie defined l 02:45: HydrALAZINE Yes Nilanjana 1 tablet Memoria HCl 3-15 Tracie l 02:45: Diovan Yes Nilanjana 1 Memori a 3-15 Tracie l 02:45: Amoxicillin Yes Nilanjana 2 capsules Memoria 3-15 Tracie l 02:45: Cyclobenzap Yes Nilanjana TAKE ONE Memoria rine HCl 3-15 Tracie TABLET BY l 02:45: MOUTH 06 TWICE DAILY NEEDED Folic Acid Yes Nilanjana TAKE 1 Memoria 3-15 Tracie TABLET BY l 02:45: MOUTH 06 EVERY DAY Levothyroxi Yes Nilanjana 1 tablet [facility] ne Sodium 3-15 Tracie every l 02:45: morning on an empty stomach Crestor Yes Nilanjana 1 tablet M emoria 3-15 Tracie l 02:45: Enbrel Mini Yes Nilanjana 1 ml M emoria 3-15 Tracie syringe l 02:45: Celebrex Yes Nilanjana 1 capsule Mem[facility] 3-15 Tracie with food l 02:45: Gabapentin Yes Nilanjana TAKE ONE Memoria 3-15 Tracie TABLET BY l 02:45: MOUTH THREE TIMES DAILY Humalog Yes Nilanjana not Memor ia 3-15 Tracie defined l 02:45: Carvedilol Yes Nilanjana 1 tablet [facility] 3-15 Tracie with food l 02:45: NovoLog Yes Nilanjana as Mem[facility] ia 3-15 Tracie directed l 02:45: Protonix Yes Nilanjana 1 tablet [facility] 3-15 Tracie l 02:45: Alendronate Yes Nilanjana not M emoria Sodium 3-15 Tracie defined l 02:45: HydrALAZINE 2022-0 Yes Nilanjana 1 tablet [facility] HCl 3-15 Tracie l 02:45: Diovan Yes Nilanjana 1 Memori a 3-15 Tracie l 02:45: Amoxicillin Yes Nilanjana 2 capsules [facility] 3-15 Tracie l 02:45: Cyclobenzap Yes Nilanjana TAKE ONE [facility] rine HCl 3-15 Tracie TABLET BY l 02:45: MOUTH 06 TWICE DAILY NEEDED Folic Acid Yes Nilanjana TAKE 1 Memoria 3-15 Tracie TABLET BY l 02:45: MOUTH 06 EVERY DAY Levothyroxi Yes Nilanjana 1 tablet [facility] ne Sodium 3-15 Tracie every l 02:45: morning on an empty stomach Crestor Yes Nilanjana 1 tablet M emoria 3-15 Tracie l 02:45: Enbrel Mini Yes Nilanjana 1 ml M emoria 3-15 Tracie syringe l 02:45: Celebrex Yes Nilanjana 1 capsule [facility] 3-15 Tr[place]ie with food l 02:45: Gabapentin 2020-04 Yes Nilanjana TAKE ONE Memoria 2-07 Tracie TABLET BY l 03:45: MOUTH THREE TIMES DAILY Humalog 2020-04 Yes Nilanjana not Memor ia 2-07 Tracie defined l 03:45: NovoLog 2020-04 Yes Nilanjana as Mem[facility] ia 2-07 Tracie directed l 03:45: Carvedilol 2020-04 Yes Nilanjana 1 tablet [facility] 2-07 Tr[place]ie with food l 03:45: Protonix 2020-04 Yes Nilanjana 1 tablet [facility] 2-07 Tracie l 03:45: Amoxicillin 2020-04 Yes Nilanjana 2 capsules [facility] 2-07 Tracie l 03:45: Diovan 2020-04 Yes Nilanjana 1 Memori a 2-07 Tracie l 03:45: HydrALAZINE 2020-04 Yes Nilanjana 1 tablet [facility] HCl 2-07 Tracie l 03:45: Cyclobenzap 2020-04 Yes Nilanjana TAKE ONE [facility] rine HCl 2-07 Tracie TABLET BY l 03:45: MOUTH TWICE DAILY NEEDED Crestor 2020-04 Yes Nilanjana 1 tablet M emoria 2-07 Tracie l 03:45: Alendronate 2020-04 Yes Nilanjana not M emoria Sodium 2-07 Tracie defined l 03:45: Levothyroxi 2020-04 Yes Nilanjana 1 tablet [facility] ne Sodium 2-07 Tracie every l 03:45: morning on an empty stomach Folic Acid 2020-04 Yes Nilanjana TAKE 1 Memoria 2-07 Tr[place]ie TABLET BY l 03:45: MOUTH EVERY DAY Celebrex 2020-04 Yes Nilanjana 1 capsule [facility] 2-06 Tr[place]ie with food l 00:00: Celebrex 2020-04 Yes Nilanjana 1 capsule [facility] 2-06 [place]ie with food l 00:00: Celebrex 2020-04 Yes Nilanjana 1 capsule [facility] 2-06 [place] with food l 00:00: Celebrex 2020-04 Yes Nilanjana 1 capsule [facility] 2-06 [place] with food l 00:00: Celebrex 2020-04 Yes Nilanjana 1 capsule [facility] 2-06 [place]ie with food l 00:00: Celebrex 2020-04 Yes Nilanjana 1 capsule [facility] 2-06 [place] with food l 00:00: Celebrex 2020-04 Yes Nilanjana 1 capsule [facility] 2-06 [place]ie with food l 00:00: Celebrex 2020-04 Yes Nilanjana 1 capsule [facility] 2-06 [place]ie with food l 00:00: Celebrex 2020-04 Yes Nilanjana 1 capsule [facility] 2-06 Tr[place]ie with food l 00:00: Celebrex 2020-04 Yes Nilanjana 1 capsule [facility] 2-06 [place]ie with food l 00:00: Prolia 2021-0 Yes Nilanjana as Memori a 5-11 Tracie directed l 00:00: [place] 00 Prolia 0 Yes Nilanjana as Memori a 5-11 Tracie directed l 00:00: [place] 00 Prolia 0 Yes Nilanjana as Memori a 5-11 Tracie directed l 00:00: [place] 00 Prolia 0 Yes Nilanjana as Memori a 5-11 Tracie directed l 00:00: [place] 00 Prolia 0 Yes Nilanjana as Memori a 5-11 Tracie directed l 00:00: [place] Prolia 0 Yes Nilanjana as Memori a 5-11 Tracie directed l 00:00: [place] Prolia 0 Yes Nilanjana as Memori a 5-11 Tracie directed l 00:00: [place] 00 Prolia 0 Yes Nilanjana as Memori a 5-11 Tracie directed l 00:00: [place] Prolia 0 Yes Nilanjana as Memori a 5-11 Tracie directed l 00:00: [place] 00 Prolia 0 Yes Nilanjana as Memori a 5-11 Tracie directed l 00:00: [place] 00 PredniSONE 2020- Yes Nilanjana 2 tablet Memoria 0-27 Tracie daily for l 00:00: 5 days [place] 00 then 1 tablet daily for 5 days and stop PredniSONE 2019-04 Yes Nilanjana 2 tablet Memoria 0-27 Tracie daily for l 00:00: 5 days [place] 00 then 1 tablet daily for 5 days and stop PredniSONE 2019-04 Yes Nilanjana 2 tablet [facility]oria 0-27 Tracie daily for l 00:00: 5 days [place] 00 then 1 tablet daily for 5 days and stop PredniSONE 2019-04 Yes Nilanjana 2 tablet [facility]oria 0-27 Tracie daily for l 00:00: 5 days [place] 00 then 1 tablet daily for 5 days and stop PredniSONE 2019-04 Yes Nilanjana 2 tablet Memoria 0-27 Rtacie daily for l 00:00: 5 days [place] 00 then 1 tablet daily for 5 days and stop PredniSONE 2019-04 Yes Nilanjana 2 tablet [facility]oria 0-27 Tracie daily for l 00:00: 5 days [place] 00 then 1 tablet daily for 5 days and stop PredniSONE 2019-04 Yes Nilanjana 2 tablet [facility] 0-27 Tracie daily for l 00:00: 5 days [place] 00 then 1 tablet daily for 5 days and stop PredniSONE 2019- Yes Nilanjana 2 tablet [facility] 0-27 Tracie daily for l 00:00: 5 days [place] 00 then 1 tablet daily for 5 days and stop PredniSONE 2019-04 Yes Nilanjana 2 tablet [facility] 0-27 Tracie daily for l 00:00: 5 days [place] 00 then 1 tablet daily for 5 days and stop PredniSONE 2019-04 Yes Nilanjana 2 tablet [facility] 0-27 Tracie daily for l 00:00: 5 days [place] 00 then 1 tablet daily for 5 days and stop meloxicam 2019-04 Yes [id number] 15mg Take 1 Un [facility] 15 mg 0-16 tablet by ity of tablet 00:00: mouth [place] 00 daily. [facility] meloxicam 2019-1 Yes [id number] 15mg Take 1 Un [facility] 15 mg 0-16 tablet by ity of tablet 00:00: mouth [place] 00 daily. [facility] meloxicam 2019- Yes [id number] 15mg Take 1 [facility] 15 mg 0-16 tablet by ity of tablet 00:00: mouth [place] 00 daily. [facility] meloxicam 2019-1 Yes [id number] 15mg Take 1 [facility] 15 mg 0-16 tablet by ity of tablet 00:00: mouth [place] 00 daily. [facility] meloxicam 2020-1 Yes [id number] 15mg Take 1 [facility] 15 mg 0-16 tablet by ity of tablet 00:00: mouth [place] 00 daily. [facility] meloxicam 2019-1 Yes [id number] 15mg Take 1 [facility] 15 mg 0-16 tablet by ity of tablet 00:00: mouth [place] 00 daily. [facility] meloxicam 2020-1 Yes [id number] 15mg Take 1 [facility] 15 mg 0-16 tablet by ity of tablet 00:00: mouth [place] 00 daily. [facility] meloxicam 2019-1 Yes [id number] 15mg Take 1 Un [facility] 15 mg 0-16 tablet by ity of tablet 00:00: mouth [place] 00 daily. [facility] meloxicam 2019-1 Yes [id number] 15mg Take 1 [facility] 15 mg 0-16 tablet by ity of tablet 00:00: mouth [place] 00 daily. [facility] meloxicam 2020-1 Yes [id number] 15mg Take 1 [facility] 15 mg 0-16 tablet by ity of tablet 00:00: mouth [place] 00 daily. [facility] meloxicam 2019-1 Yes [id number] 15mg Take 1 [facility] 15 mg 0-16 tablet by ity of tablet 00:00: mouth [place] 00 daily. [facility] meloxicam 2019-1 Yes [id number] 15mg Take 1 Un [facility] 15 mg 0-16 tablet by ity of tablet 00:00: mouth [place] 00 daily. [facility] meloxicam 2019-1 Yes [id number] 15mg Take 1 Un [facility] 15 mg 0-16 tablet by ity of tablet 00:00: mouth [place] 00 daily. [facility] meloxicam 2019-1 Yes [id number] 15mg Take 1 [facility] 15 mg 0-16 tablet by ity of tablet 00:00: mouth [place] 00 daily. [facility] meloxicam 2019-1 Yes [id number] 15mg Take 1 Un [facility] 15 mg 0-16 tablet by ity of tablet 00:00: mouth [place] 00 daily. [facility] meloxicam 2019-1 Yes [id number] 15mg Take 1 Un [facility] 15 mg 0-16 tablet by ity of tablet 00:00: mouth [place] 00 daily. [facility] meloxicam 2019-1 Yes [id number] 15mg Take 1 Un [facility] 15 mg 0-16 tablet by ity of tablet 00:00: mouth [place] 00 daily. [facility] meloxicam 2020-1 Yes [id number] 15mg Take 1 Un [facility] 15 mg 0-16 tablet by ity of tablet 00:00: mouth [place] 00 daily. [facility] meloxicam 2019-1 Yes [id number] 15mg Take 1 Un [facility] 15 mg 0-16 tablet by ity of tablet 00:00: mouth [place] 00 daily. [facility] meloxicam 2020-1 Yes [id number] 15mg Take 1 Un [facility] 15 mg 0-16 tablet by ity of tablet 00:00: mouth [place] 00 daily. [facility] meloxicam 2020-1 Yes [id number] 15mg Take 1 Un [facility] 15 mg 0-16 tablet by ity of tablet 00:00: mouth [place] 00 daily. [facility] meloxicam 2020-1 Yes [id number] 15mg Take 1 [facility] 15 mg 0-16 tablet by ity of tablet 00:00: mouth [place] 00 daily. [facility] meloxicam 2019-1 Yes [id number] 15mg Take 1 [facility] 15 mg 0-16 tablet by ity of tablet 00:00: mouth [place] 00 daily. [facility] meloxicam 2019-1 Yes [id number] 15mg Take 1 [facility] 15 mg 0-16 tablet by ity of tablet 00:00: mouth [place] 00 daily. [facility] meloxicam 2019-1 Yes [id number] 15mg Take 1 [facility] 15 mg 0-16 tablet by ity of tablet 00:00: mouth [place] 00 daily. [facility] meloxicam 2019-1 Yes [id number] 15mg Take 1 [facility] 15 mg 0-16 tablet by ity of tablet 00:00: mouth [place] 00 daily. [facility] meloxicam 2019-1 Yes [id number] 15mg Take 1 [facility] 15 mg 0-16 tablet by ity of tablet 00:00: mouth [place] 00 daily. [facility] meloxicam 2019-1 Yes [id number] 15mg Take 1 [facility] 15 mg 0-16 tablet by ity of tablet 00:00: mouth [place] 00 daily. [facility] meloxicam 2019-1 Yes [id number] 15mg Take 1 [facility] 15 mg 0-16 tablet by ity of tablet 00:00: mouth [place] 00 daily. [facility] meloxicam 2019-1 Yes [id number] 15mg Take 1 [facility] 15 mg 0-16 tablet by ity of tablet 00:00: mouth [place] 00 daily. [facility] meloxicam 2019-1 Yes [id number] 15mg Take 1 [facility] 15 mg 0-16 tablet by ity of tablet 00:00: mouth [place] 00 daily. [facility] meloxicam 2019-1 Yes [id number] 15mg Take 1 [facility] 15 mg 0-16 tablet by ity of tablet 00:00: mouth [place] 00 daily. [facility] meloxicam 2020-1 Yes [id number] 15mg Take 1 [facility] 15 mg 0-16 tablet by ity of tablet 00:00: mouth [place] 00 daily. [facility] meloxicam 2020-1 Yes [id number] 15mg Take 1 [facility] 15 mg 0-16 tablet by ity of tablet 00:00: mouth [place] 00 daily. [facility] meloxicam 2020-1 Yes [id number] 15mg Take 1 Un [facility] 15 mg 0-16 tablet by ity of tablet 00:00: mouth [place] 00 daily. [facility] meloxicam 2020-1 Yes [id number] 15mg Take 1 [facility] 15 mg 0-16 tablet by ity of tablet 00:00: mouth [place] 00 daily. [facility] meloxicam 2020-1 Yes [id number] 15mg Take 1 [facility] 15 mg 0-16 tablet by ity of tablet 00:00: mouth [place] 00 daily. [facility] meloxicam 2020-1 Yes [id number] 15mg Take 1 Un [facility] 15 mg 0-16 tablet by ity of tablet 00:00: mouth [place] 00 daily. [facility] MELOXICAM 2020-0 Yes [id number] TAKE 1 Un [facility] 15 mg 8-13 TABLET BY ity of tablet 00:00: MOUTH [place] 00 EVERY DAY [facility] MELOXICAM 2020-0 Yes [id number] TAKE 1 Un [facility] 15 mg 8-13 TABLET BY ity of tablet 00:00: MOUTH [place] 00 EVERY DAY [facility] MELOXICAM 2020-0 Yes [id number] TAKE 1 Un [facility] 15 mg 8-13 TABLET BY ity of tablet 00:00: MOUTH [place] 00 EVERY DAY [facility] MELOXICAM 2020-0 Yes [id number] TAKE 1 Un [facility] 15 mg 8-13 TABLET BY ity of tablet 00:00: MOUTH [place] 00 EVERY DAY [facility] MELOXICAM 2020-0 2020- No [id number] TAKE 1 U nivers 15 mg 8-13 10-16 TABLET BY ity of tablet 00:00: 00:00 MOUTH [place] 00 :00 EVERY DAY [facility] MELOXICAM 2020-0 Yes [id number] TAKE 1 Un [facility] 15 mg 7-17 TABLET BY ity of tablet 00:00: MOUTH [place] 00 EVERY DAY [facility] MELOXICAM 2020-0 2020- No [id number] TAKE 1 U nivers 15 mg 7-17 08-13 TABLET BY ity of tablet 00:00: 00:00 MOUTH [place] 00 :00 EVERY DAY [facility] Crestor 2020-0 Yes Nilanjana 1 tablet M emoria 10-27 Tracie l 02:45: [place] 16 Levothyroxi 2020-0 Yes Nilanjana 1 tablet Mem[facility] ne Sodium 10-27 Tracie every l 02:45: morning on 16 an empty stomach Levothyroxi 2020-0 Yes Nilanjana 1 tablet [facility] ne Sodium 7-07 Tracie every l 02:45: morning on 16 an empty stomach Crestor 2020-0 Yes Nilanjana 1 tablet M emoria 7-07 Tracie l 02:45: Crestor 2020-0 Yes Nilanjana 1 tablet M emoria 7-07 Tracie l 02:45: Levothyroxi 2020-0 Yes Nilanjana 1 tablet [facility] ne Sodium 7-07 Tracie every l 02:45: morning on an empty stomach Crestor 2020-0 Yes Nilanjana 1 tablet M emoria 7-07 Tracie l 02:45: Levothyroxi 2020-0 Yes Nilanjana 1 tablet [facility] ne Sodium 7-07 Tracie every l 02:45: morning on an empty stomach Crestor 2020-0 Yes Nilanjana 1 tablet M emoria 7-07 Tracie l 02:45: Levothyroxi 2020-0 Yes Nilanjana 1 tablet [facility] ne Sodium 7-07 Tracie every l 02:45: morning on an empty stomach Crestor 2020-0 Yes Nilanjana 1 tablet M emoria 7-07 Tracie l 02:45: Levothyroxi 2020-0 Yes Nilanjana 1 tablet [facility] ne Sodium 7-07 Tracie every l 02:45: morning on an empty stomach Crestor 2020-0 Yes Nilanjana 1 tablet M emoria 7-07 Tracie l 02:45: Levothyroxi 2020-0 Yes Nilanjana 1 tablet [facility] ne Sodium 7-07 Tracie every l 02:45: morning on an empty stomach Crestor 2020-0 Yes Nilanjana 1 tablet M emoria 7-07 Tracie l 02:45: Levothyroxi 2020-0 Yes Nilanjana 1 tablet Memoria ne Sodium 7-07 Tracie every l 02:45: morning on an empty stomach Crestor 2020-0 Yes Nilanjana 1 tablet M emoria 7-07 Tracie l 02:45: Levothyroxi 2020-0 Yes Nilanjana 1 tablet [facility] ne Sodium 7-07 Tracie every l 02:45: morning on 16 an empty stomach Crestor 2020-0 Yes Nilanjana 1 tablet M emoria 7-07 Tracie l 02:45: Levothyroxi 2020-0 Yes Nilanjana 1 tablet [facility] ne Sodium 7-07 Tracie every l 02:45: morning on 16 an empty stomach Enbrel Mini 2020-0 Yes Nilanjana 1 ml M emoria 7-06 Tracie syringe l 00:00: Enbrel Mini 2020-0 Yes Nilanjana 1 ml M emoria 7-06 Tr[place]ie syringe l 00:00: Enbrel Mini 2020-0 Yes Nilanjana 1 ml M emoria 7-06 Tracie syringe l 00:00: Enbrel Mini 2020-0 Yes Nilanjana 1 ml M emoria 7-06 Tracie syringe l 00:00: Enbrel Mini 2020-0 Yes Nilanjana 1 ml M emoria 7-06 Tracie syringe l 00:00: Enbrel Mini 2020-0 Yes Nilanjana 1 ml M emoria 7-06 Tracie syringe l 00:00: Enbrel Mini 2020-0 Yes Nilanjana 1 ml M emoria 7-06 Tracie syringe l 00:00: Enbrel Mini 2020-0 Yes Nilanjana 1 ml M emoria 7-06 Tracie syringe l 00:00: Enbrel Mini 2020-0 Yes Nilanjana 1 ml M emoria 7-06 Tracie syringe l 00:00: Enbrel Mini 2020-0 Yes Nilanjana 1 ml M emoria 7-06 Tracie syringe l 00:00: MELOXICAM 2020-0 Yes [id number] TAKE 1 Un [facility] 15 mg 5-20 TABLET BY ity of tablet 00:00: MOUTH [place] EVERY DAY [facility] MELOXICAM 2020-0 2020- No [id number] TAKE 1 U nivers 15 mg 5-20 07-17 TABLET BY ity of tablet 00:00: 00:00 MOUTH [place] 00 :00 EVERY DAY [facility] alendronate 2019-0 2020- No [id number] 70mg Take 1 [facility] 70 mg 4-02 04-03 tablet by ity of tablet 00:00: 04:59 mouth [place] 00 :00 weekly. [facility] alendronate 2019-0 2020- No [id number] 70mg Take 1 [facility] 70 mg 4-02 04-03 tablet by ity of tablet 00:00: 04:59 mouth [place] 00 :00 weekly. [facility] alendronate 2019-0 2020- No [id number] 70mg Take 1 [facility] 70 mg 4-02 04-03 tablet by ity of tablet 00:00: 04:59 mouth [place] 00 :00 weekly. [facility] alendronate 2019-0 2020- No [id number] 70mg Take 1 [facility] 70 mg 4-02 04-03 tablet by ity of tablet 00:00: 04:59 mouth [place] 00 :00 weekly. [facility] alendronate 2019-0 2020- No [id number] 70mg Take 1 [facility] 70 mg 4-02 04-03 tablet by ity of tablet 00:00: 04:59 mouth [place] 00 :00 weekly. [facility] alendronate 2019-0 2020- No [id number] 70mg Take 1 [facility] 70 mg 4-02 04-03 tablet by ity of tablet 00:00: 04:59 mouth [place] 00 :00 weekly. [facility] alendronate 2019-0 2020- No [id number] 70mg Take 1 [facility] 70 mg 4-02 04-03 tablet by ity of tablet 00:00: 04:59 mouth [place] 00 :00 weekly. [facility] alendronate 2019-0 2020- No [id number] 70mg Take 1 [facility] 70 mg 4-02 04-03 tablet by ity of tablet 00:00: 04:59 mouth [place] 00 :00 weekly. [facility] alendronate 2020-0 2020- No [id number] 70mg Take 1 [facility] 70 mg 4-02 04-03 tablet by ity of tablet 00:00: 04:59 mouth [place] 00 :00 weekly. [facility] alendronate 2020-0 2020- No [id number] 70mg Take 1 [facility] 70 mg 4-02 04-03 tablet by ity of tablet 00:00: 04:59 mouth [place] 00 :00 weekly. [facility] alendronate 2020-0 2020- No [id number] 70mg Take 1 [facility] 70 mg 4-02 04-03 tablet by ity of tablet 00:00: 04:59 mouth [place] 00 :00 weekly. [facility] alendronate 0 2020- No [id number] 70mg Take 1 [facility] 70 mg 4-02 04-03 tablet by ity of tablet 00:00: 04:59 mouth [place] 00 :00 weekly. [facility] alendronate 2019-0 2020- No [id number] 70mg Take 1 [facility] 70 mg 4-02 04-03 tablet by ity of tablet 00:00: 04:59 mouth [place] 00 :00 weekly. [facility] alendronate 2019-2020- No [id number] 70mg Take 1 [facility] 70 mg 4-02 04-03 tablet by ity of tablet 00:00: 04:59 mouth [place] 00 :00 weekly. [facility] alendronate 2019-0 2020- No [id number] 70mg Take 1 [facility] 70 mg 4-02 04-03 tablet by ity of tablet 00:00: 04:59 mouth [place] 00 :00 weekly. [facility] alendronate 0 2020- No [id number] 70mg Take 1 [facility] 70 mg 4-02 04-03 tablet by ity of tablet 00:00: 04:59 mouth [place] 00 :00 weekly. [facility] alendronate 0 2020- No [id number] 70mg Take 1 [facility] 70 mg 4-02 04-03 tablet by ity of tablet 00:00: 04:59 mouth [place] 00 :00 weekly. [facility] alendronate 2019-0 2020- No [id number] 70mg Take 1 [facility] 70 mg 4-02 04-03 tablet by ity of tablet 00:00: 04:59 mouth [place] 00 :00 weekly. [facility] alendronate 2019-2020- No [id number] 70mg Take 1 [facility] 70 mg 4-02 04-03 tablet by ity of tablet 00:00: 04:59 mouth [place] 00 :00 weekly. [facility] alendronate 2019-2020- No [id number] 70mg Take 1 [facility] 70 mg 4-02 04-03 tablet by ity of tablet 00:00: 04:59 mouth [place] 00 :00 weekly. [facility] alendronate 2020-0 2020- No [id number] 70mg Take 1 [facility] 70 mg 4-02 04-03 tablet by ity of tablet 00:00: 04:59 mouth [place] 00 :00 weekly. [facility] alendronate 2019-0 2020- No [id number] 70mg Take 1 [facility] 70 mg 4-02 04-03 tablet by ity of tablet 00:00: 04:59 mouth [place] 00 :00 weekly. [facility] alendronate 2019-0 2020- No [id number] 70mg Take 1 [facility] 70 mg 4-02 04-03 tablet by ity of tablet 00:00: 04:59 mouth [place] 00 :00 weekly. [facility] alendronate 2019-0 2020- No [id number] 70mg Take 1 [facility] 70 mg 4-02 04-03 tablet by ity of tablet 00:00: 04:59 mouth [place] 00 :00 weekly. [facility] alendronate 2019-0 2020- No [id number] 70mg Take 1 [facility] 70 mg 4-05 27-03 tablet by ity of tablet 00:00: 04:59 mouth [place] 00 :00 weekly. [facility] alendronate 2019-0 2020- No [id number] 70mg Take 1 [facility] 70 mg 4-05 27-03 tablet by ity of tablet 00:00: 04:59 mouth [place] 00 :00 weekly. [facility] alendronate 2019-0 2020- No [id number] 70mg Take 1 [facility] 70 mg 4-02 -03 tablet by ity of tablet 00:00: 04:59 mouth [place] 00 :00 weekly. [facility] amLODIPine 2020-0 Yes 5mg Take 5 mg [facility] 5 mg tablet 2-26 by mouth ity of 20:20: daily. [address] amLODIPine 2020-0 Yes 5mg Take 5 mg Un [facility] 5 mg tablet 2-26 by mouth ity of 20:20: daily. [address] amLODIPine 2020-0 Yes 5mg Take 5 mg [facility] 5 mg tablet 2-26 by mouth ity of 20:20: daily. [address] amLODIPine 2020-0 Yes 5mg Take 5 mg [facility] 5 mg tablet 2-26 by mouth ity of 20:20: daily. [address] amLODIPine 2020-0 Yes 5mg Take 5 mg [facility] 5 mg tablet 2-26 by mouth ity of 20:20: daily. [address] amLODIPine 2020-0 Yes 5mg Take 5 mg [facility] 5 mg tablet 2-26 by mouth ity of 20:20: daily. [address] amLODIPine 2020-0 Yes 5mg Take 5 mg [facility] 5 mg tablet 2-26 by mouth ity of 20:20: daily. [address] amLODIPine 2020-0 Yes 5mg Take 5 mg [facility] 5 mg tablet 2-26 by mouth ity of 20:20: daily. [address] amLODIPine 2020-0 Yes 5mg Take 5 mg [facility] 5 mg tablet 2-26 by mouth ity of 20:20: daily. [address] amLODIPine 2020-0 Yes 5mg Take 5 mg [facility] 5 mg tablet 2-26 by mouth ity of 20:20: daily. [address] amLODIPine 2020-0 Yes 5mg Take 5 mg [facility] 5 mg tablet 2-26 by mouth ity of 20:20: daily. [address] amLODIPine 2020-0 Yes 5mg Take 5 mg [facility] 5 mg tablet 2-26 by mouth ity of 20:20: daily. [address] amLODIPine 2020-0 Yes 5mg Take 5 mg [facility] 5 mg tablet 2-26 by mouth ity of 20:20: daily. [address] amLODIPine 2020-0 Yes 5mg Take 5 mg [facility] 5 mg tablet 2-26 by mouth ity of 20:20: daily. [address] amLODIPine 2020-0 Yes 5mg Take 5 mg [facility] 5 mg tablet 2-26 by mouth ity of 20:20: daily. [address] amLODIPine 2020-0 Yes 5mg Take 5 mg [facility] 5 mg tablet 2-26 by mouth ity of 20:20: daily. [address] amLODIPine 2020-0 Yes 5mg Take 5 mg [facility] 5 mg tablet 2-26 by mouth ity of 20:20: daily. [address] amLODIPine 2020-0 Yes 5mg Take 5 mg [facility] 5 mg tablet 2-26 by mouth ity of 20:20: daily. [address] amLODIPine 2020-0 Yes 5mg Take 5 mg [facility] 5 mg tablet 2-26 by mouth ity of 20:20: daily. [address] amLODIPine 2020-0 Yes 5mg Take 5 mg [facility] 5 mg tablet 2-26 by mouth ity of 20:20: daily. [address] amLODIPine 2020-0 Yes 5mg Take 5 mg [facility] 5 mg tablet 2-26 by mouth ity of 20:20: daily. [address] amLODIPine 2020-0 Yes 5mg Take 5 mg [facility] 5 mg tablet 2-26 by mouth ity of 20:20: daily. [address] amLODIPine 2020-0 Yes 5mg Take 5 mg [facility] 5 mg tablet 2-26 by mouth ity of 20:20: daily. [address] amLODIPine 2020-0 Yes 5mg Take 5 mg [facility] 5 mg tablet 2-26 by mouth ity of 20:20: daily. [address] amLODIPine 2020-0 Yes 5mg Take 5 mg [facility] 5 mg tablet 2-26 by mouth ity of 20:20: daily. [address] amLODIPine 2020-0 Yes 5mg Take 5 mg [facility] 5 mg tablet 2-26 by mouth ity of 20:20: daily. [address] amLODIPine 2020-0 Yes 5mg Take 5 mg [facility] 5 mg tablet 2-26 by mouth ity of 20:20: daily. [address] amLODIPine 2020-0 Yes 5mg Take 5 mg [facility] 5 mg tablet 2-26 by mouth ity of 20:20: daily. [address] amLODIPine 2020-0 Yes 5mg Take 5 mg [facility] 5 mg tablet 2-26 by mouth ity of 20:20: daily. [address] amLODIPine 2020-0 Yes 5mg Take 5 mg [facility] 5 mg tablet 2-26 by mouth ity of 20:20: daily. [address] amLODIPine 2020-0 Yes 5mg Take 5 mg [facility] 5 mg tablet 2-26 by mouth ity of 14:20: daily. [address] amLODIPine 2020-0 Yes 5mg Take 5 mg [facility] 5 mg tablet 2-26 by mouth ity of 14:20: daily. [address] amLODIPine 2020-0 Yes 5mg Take 5 mg [facility] 5 mg tablet 2-26 by mouth ity of 14:20: daily. [address] amLODIPine 2020-0 Yes 5mg Take 5 mg [facility] 5 mg tablet 2-26 by mouth ity of 14:20: daily. [address] amLODIPine 2020-0 Yes 5mg Take 5 mg [facility] 5 mg tablet 2-26 by mouth ity of 14:20: daily. [address] amLODIPine 2020-0 Yes 5mg Take 5 mg [facility] 5 mg tablet 2-26 by mouth ity of 14:20: daily. [address] amLODIPine 2020-0 Yes 5mg Take 5 mg [facility] 5 mg tablet 2-26 by mouth ity of 14:20: daily. [address] amLODIPine 2020-0 Yes 5mg Take 5 mg [facility] 5 mg tablet 2-26 by mouth ity of 14:20: daily. [address] amLODIPine 2020-0 Yes 5mg Take 5 mg [facility] 5 mg tablet 2-26 by mouth ity of 14:20: daily. [address] amLODIPine 2020-0 Yes 5mg Take 5 mg [facility] 5 mg tablet 2-26 by mouth ity of 14:20: daily. [address] amLODIPine 2020-0 Yes 5mg Take 5 mg [facility] 5 mg tablet 2-26 by mouth ity of 14:20: daily. [address] amLODIPine 2020-0 Yes 5mg Take 5 mg [facility] 5 mg tablet 2-26 by mouth ity of 14:20: daily. [address] amLODIPine 2020-0 Yes 5mg Take 5 mg [facility] 5 mg tablet 2-26 by mouth ity of 14:20: daily. [address] amLODIPine 2020-0 Yes 5mg Take 5 mg [facility] 5 mg tablet 2-26 by mouth ity of 14:20: daily. [address] amLODIPine 2020-0 Yes 5mg Take 5 mg [facility] 5 mg tablet 2-26 by mouth ity of 14:20: daily. [address] amLODIPine 2020-0 Yes 5mg Take 5 mg [facility] 5 mg tablet 2-26 by mouth ity of 14:20: daily. [address] amLODIPine 2020-0 Yes 5mg Take 5 mg [facility] 5 mg tablet 2-26 by mouth ity of 14:20: daily. [address] amLODIPine 2020-0 Yes 5mg Take 5 mg [facility] 5 mg tablet 2-26 by mouth ity of 14:20: daily. [place] [address] Medical Branch amLODIPine 2019-0 Yes 5mg Take 5 mg [facility] 5 mg tablet 2-26 by mouth ity of 14:20: daily. [address] Branch meloxicam 2020-0 Yes [id number] 15mg Take 1 [facility] 15 mg 2-26 tablet by ity of tablet 00:00: mouth [place] 00 daily. [facility] meloxicam 2020-0 Yes [id number] 15mg Take 1 [facility] 15 mg 2-26 tablet by ity of tablet 00:00: mouth [place] 00 daily. [facility] meloxicam 2019-0 Yes [id number] 15mg Take 1 [facility] 15 mg 2-26 tablet by ity of tablet 00:00: mouth [place] 00 daily. [facility] meloxicam 2020-0 Yes [id number] 15mg Take 1 [facility] 15 mg 2-26 tablet by ity of tablet 00:00: mouth [place] 00 daily. [facility] meloxicam 2019-0 2020- No [id number] 15mg Take 1 [facility] 15 mg 2-26 05-20 tablet by ity of tablet 00:00: 00:00 mouth [place] 00 :00 daily. [facility] alendronate 2019-0 2020- No [id number] 70mg Take 1 [facility] 70 mg 2-26 04-17 tablet by ity of tablet 00:00: 04:59 mouth [place] 00 :00 weekly for Medical 8 doses. [place] alendronate 2019-0 2020- No [id number] 70mg Take 1 [facility] 70 mg 2-26 04-17 tablet by ity of tablet 00:00: 04:59 mouth [place] 00 :00 weekly for Medical 8 doses. [place] alendronate 2019-0 2020- No [id number] 70mg Take 1 [facility] 70 mg 2-26 03-02 tablet by ity of tablet 00:00: 00:00 mouth [place] 00 :00 weekly for Medical 8 doses. [place] alendronate 2019-0 2020- No [id number] 70mg Take 1 [facility] 70 mg 2-26 03-02 tablet by ity of tablet 00:00: 00:00 mouth [place] 00 :00 weekly for Medical 8 doses. [place] ipratropium 2019- 2020- No [id number] 3mL [facility] -albuterol 2-18 -18 ity of (DUONEB) 03:15: 02:10 [place] 0.5 mg-3 00 :00 Medical mg(2.5 mg Branch base)/3 mL nebulizer solution 3 mL ipratropium 2020-0 2020- No [id number] 3mL 3 mL, [facility] -albuterol 2-18 02-18 Inhalation it y of (DUONEB) 03:15: 02:10 , ONCE, 1 [place] 0.5 mg-3 00 :00 dose, Mon Medica l mg(2.5 mg 06/09/19 at Bran ch base)/3 mL 2114, nebulizer Routine solution 3 mL proMETHazin 2020-0 Yes 12.5mg Take 12.5 [facility] e 12.5 mg 2-18 mg by ity of tablet 01:35: mouth [place] 09 every 4 Medical (four) Branch hours as needed. amLODIPine 2020-0 Yes 5mg Take 5 mg [facility] 5 mg tablet 2-18 by mouth ity of 01:35: daily. Medical Branch proMETHazin 2020-0 Yes 12.5mg Take 12.5 [facility] e 12.5 mg 2-18 mg by ity of tablet 01:35: mouth [place] 09 every 4 Medical (four) Branch hours as needed. cyclobenzap 2020-0 Yes 10mg Take 10 mg [facility] rine 2-18 by mouth ity of (FLEXERIL) 01:35: as needed [place] 10 mg 09 for Muscle Medical tablet Spasms. Branch gabapentin 2020-0 Yes 800mg Take 800 [facility] (NEURONTIN) 2-18 mg by ity of 800 mg 01:35: mouth 3 [place] tablet 09 (three) Medical times Branch daily. rosuvastati 2020-0 Yes 20mg Take 20 mg [facility] n (CRESTOR) 2-18 by mouth ity of 20 mg 01:35: at [place] tablet 09 bedtime. Medical Branch SUBCUTANEOU 2020-0 Yes Novolog [facility] vers S INSULIN 2-18 insulin ity of PUMP MISC 01:35: pump- 2 09 units Medical every hour Branch per pump proMETHazin 2020-0 Yes 12.5mg Take 12.5 [facility] e 12.5 mg 2-18 mg by ity of tablet 01:35: mouth [place] 09 every 4 Medical (four) Branch hours as needed. cyclobenzap 2020-0 Yes 10mg Take 10 mg [facility] rine 2-18 by mouth ity of (FLEXERIL) 01:35: as needed [place] 10 mg 09 for Muscle Medical tablet Spasms. Branch gabapentin 2020-0 Yes 800mg Take 800 [facility] (NEURONTIN) 2-18 mg by ity of 800 mg 01:35: mouth 3 [place] tablet 09 (three) Medical times Branch daily. rosuvastati 2020-0 Yes 20mg Take 20 mg [facility] n (CRESTOR) 2-18 by mouth ity of 20 mg 01:35: at [place] tablet 09 bedtime. Medical Branch SUBCUTANEOU 2020-0 Yes Novolog [facility] vers S INSULIN 2-18 insulin ity of PUMP MISC 01:35: pump- 2 [place] 09 units Medical every hour Branch per pump proMETHazin 2020-0 Yes 12.5mg Take 12.5 [facility] e 12.5 mg 2-18 mg by ity of tablet 01:35: mouth [place] 09 every 4 Medical (four) Branch hours as needed. cyclobenzap 2020-0 Yes 10mg Take 10 mg [facility] rine 2-18 by mouth ity of (FLEXERIL) 01:35: as needed [place] 10 mg 09 for Muscle Medical tablet Spasms. Branch gabapentin 2020-0 Yes 800mg Take 800 [facility] (NEURONTIN) 2-18 mg by ity of 800 mg 01:35: mouth 3 [place] tablet 09 (three) Medical times Branch daily. rosuvastati 2020-0 Yes 20mg Take 20 mg [facility] n (CRESTOR) 2-18 by mouth ity of 20 mg 01:35: at [place] tablet 09 bedtime. Medical Branch SUBCUTANEOU 2020-0 Yes Novolog [facility] vers S INSULIN 2-18 insulin ity of PUMP MISC 01:35: pump- 2 [place] 09 units Medical every hour Branch per pump proMETHazin 2020-0 Yes 12.5mg Take 12.5 [facility] e 12.5 mg 2-18 mg by ity of tablet 01:35: mouth [place] 09 every 4 Medical (four) Branch hours as needed. cyclobenzap 2020-0 Yes 10mg Take 10 mg [facility] rine 2-18 by mouth ity of (FLEXERIL) 01:35: as needed [place] 10 mg 09 for Muscle Medical tablet Spasms. Branch gabapentin 2020-0 Yes 800mg Take 800 [facility] (NEURONTIN) 2-18 mg by ity of 800 mg 01:35: mouth 3 [place] tablet 09 (three) Medical times Branch daily. rosuvastati 2020-0 Yes 20mg Take 20 mg [facility] n (CRESTOR) 2-18 by mouth ity of 20 mg 01:35: at [place] tablet 09 bedtime. Medical Branch SUBCUTANEOU 2020-0 Yes Novolog [facility] vers S INSULIN 2-18 insulin ity of PUMP MISC 01:35: pump- 2 [place] 09 units Medical every hour Branch per pump proMETHazin 2020-0 Yes 12.5mg Take 12.5 [facility] e 12.5 mg 2-18 mg by ity of tablet 01:35: mouth [place] 09 every 4 Medical (four) Branch hours as needed. cyclobenzap 2020-0 Yes 10mg Take 10 mg [facility] rine 2-18 by mouth ity of (FLEXERIL) 01:35: as needed [place] 10 mg 09 for Muscle Medical tablet Spasms. Branch gabapentin 2020-0 Yes 800mg Take 800 [facility] (NEURONTIN) 2-18 mg by ity of 800 mg 01:35: mouth 3 [place] tablet 09 (three) Medical times Branch daily. rosuvastati 2020-0 Yes 20mg Take 20 mg [facility] n (CRESTOR) 2-18 by mouth ity of 20 mg 01:35: at [place] tablet 09 bedtime. Medical Branch SUBCUTANEOU 2020-0 Yes Novolog [facility] vers S INSULIN 2-18 insulin ity of PUMP MISC 01:35: pump- 2 [place] 09 units Medical every hour Branch per pump proMETHazin 2020-0 Yes 12.5mg Take 12.5 [facility] e 12.5 mg 2-18 mg by ity of tablet 01:35: mouth [place] 09 every 4 Medical (four) Branch hours as needed. cyclobenzap 2020-0 Yes 10mg Take 10 mg [facility] rine 2-18 by mouth ity of (FLEXERIL) 01:35: as needed [place] 10 mg 09 for Muscle Medical tablet Spasms. Branch gabapentin 2020-0 Yes 800mg Take 800 [facility] (NEURONTIN) 2-18 mg by ity of 800 mg 01:35: mouth 3 [place] tablet 09 (three) Medical times Branch daily. rosuvastati 2020-0 Yes 20mg Take 20 mg [facility] n (CRESTOR) 2-18 by mouth ity of 20 mg 01:35: at [place] tablet 09 bedtime. Medical Branch SUBCUTANEOU 2020-0 Yes Novolog [facility] vers S INSULIN 2-18 insulin ity of PUMP MISC 01:35: pump- 2 [place] 09 units Medical every hour Branch per pump proMETHazin 2020-0 Yes 12.5mg Take 12.5 [facility] e 12.5 mg 2-18 mg by ity of tablet 01:35: mouth [place] 09 every 4 Medical (four) Branch hours as needed. cyclobenzap 2020-0 Yes 10mg Take 10 mg [facility] rine 2-18 by mouth ity of (FLEXERIL) 01:35: as needed [place] 10 mg 09 for Muscle Medical tablet Spasms. Branch gabapentin 2020-0 Yes 800mg Take 800 [facility] (NEURONTIN) 2-18 mg by ity of 800 mg 01:35: mouth 3 [place] tablet 09 (three) Medical times Branch daily. rosuvastati 2020-0 Yes 20mg Take 20 mg [facility] n (CRESTOR) 2-18 by mouth ity of 20 mg 01:35: at [place] tablet 09 bedtime. Medical Branch SUBCUTANEOU 2020-0 Yes Novolog [facility] vers S INSULIN 2-18 insulin ity of PUMP MISC 01:35: pump- 2 [place] 09 units Medical every hour Branch per pump proMETHazin 2020-0 Yes 12.5mg Take 12.5 [facility] e 12.5 mg 2-18 mg by ity of tablet 01:35: mouth [place] 09 every 4 Medical (four) Branch hours as needed. cyclobenzap 2020-0 Yes 10mg Take 10 mg [facility] rine 2-18 by mouth ity of (FLEXERIL) 01:35: as needed [place] 10 mg 09 for Muscle Medical tablet Spasms. Branch gabapentin 2020-0 Yes 800mg Take 800 [facility] (NEURONTIN) 2-18 mg by ity of 800 mg 01:35: mouth 3 [place] tablet 09 (three) Medical times Branch daily. rosuvastati 2020-0 Yes 20mg Take 20 mg [facility] n (CRESTOR) 2-18 by mouth ity of 20 mg 01:35: at [place] tablet 09 bedtime. Medical Branch SUBCUTANEOU 2020-0 Yes Novolog [facility] vers S INSULIN 2-18 insulin ity of PUMP MISC 01:35: pump- 2 [place] 09 units Medical every hour Branch per pump proMETHazin 2020-0 Yes 12.5mg Take 12.5 [facility] e 12.5 mg 2-18 mg by ity of tablet 01:35: mouth [place] 09 every 4 Medical (four) Branch hours as needed. cyclobenzap 2020-0 Yes 10mg Take 10 mg [facility] rine 2-18 by mouth ity of (FLEXERIL) 01:35: as needed [place] 10 mg 09 for Muscle Medical tablet Spasms. Branch gabapentin 2020-0 Yes 800mg Take 800 [facility] (NEURONTIN) 2-18 mg by ity of 800 mg 01:35: mouth 3 [place] tablet 09 (three) Medical times Branch daily. rosuvastati 2020-0 Yes 20mg Take 20 mg [facility] n (CRESTOR) 2-18 by mouth ity of 20 mg 01:35: at [place] tablet 09 bedtime. Medical Branch SUBCUTANEOU 2020-0 Yes Novolog [facility] vers S INSULIN 2-18 insulin ity of PUMP MISC 01:35: pump- 2 [place] 09 units Medical every hour Branch per pump proMETHazin 2020-0 Yes 12.5mg Take 12.5 [facility] e 12.5 mg 2-18 mg by ity of tablet 01:35: mouth [place] 09 every 4 Medical (four) Branch hours as needed. cyclobenzap 2020-0 Yes 10mg Take 10 mg [facility] rine 2-18 by mouth ity of (FLEXERIL) 01:35: as needed [place] 10 mg 09 for Muscle Medical tablet Spasms. Branch gabapentin 2020-0 Yes 800mg Take 800 [facility] (NEURONTIN) 2-18 mg by ity of 800 mg 01:35: mouth 3 [place] tablet 09 (three) Medical times Branch daily. rosuvastati 2020-0 Yes 20mg Take 20 mg [facility] n (CRESTOR) 2-18 by mouth ity of 20 mg 01:35: at [place] tablet 09 bedtime. Medical Branch SUBCUTANEOU 2020-0 Yes Novolog [facility] vers S INSULIN 2-18 insulin ity of PUMP MISC 01:35: pump- 2 [place] 09 units Medical every hour Branch per pump proMETHazin 2020-0 Yes 12.5mg Take 12.5 [facility] e 12.5 mg 2-18 mg by ity of tablet 01:35: mouth [place] 09 every 4 Medical (four) Branch hours as needed. cyclobenzap 2020-0 Yes 10mg Take 10 mg [facility] rine 2-18 by mouth ity of (FLEXERIL) 01:35: as needed [place] 10 mg 09 for Muscle Medical tablet Spasms. Branch gabapentin 2020-0 Yes 800mg Take 800 [facility] (NEURONTIN) 2-18 mg by ity of 800 mg 01:35: mouth 3 [place] tablet 09 (three) Medical times Branch daily. rosuvastati 2020-0 Yes 20mg Take 20 mg [facility] n (CRESTOR) 2-18 by mouth ity of 20 mg 01:35: at [place] tablet 09 bedtime. Medical Branch SUBCUTANEOU 2020-0 Yes Novolog Uni vers S INSULIN 2-18 insulin ity of PUMP MISC 01:35: pump- 2 [place] 09 units Medical every hour Branch per pump proMETHazin 2020-0 Yes 12.5mg Take 12.5 [facility] e 12.5 mg 2-18 mg by ity of tablet 01:35: mouth [place] 09 every 4 Medical (four) Branch hours as needed. cyclobenzap 2020-0 Yes 10mg Take 10 mg [facility] rine 2-18 by mouth ity of (FLEXERIL) 01:35: as needed [place] 10 mg 09 for Muscle Medical tablet Spasms. Branch gabapentin 2020-0 Yes 800mg Take 800 [facility] (NEURONTIN) 2-18 mg by ity of 800 mg 01:35: mouth 3 [place] tablet 09 (three) Medical times Branch daily. rosuvastati 2020-0 Yes 20mg Take 20 mg [facility] n (CRESTOR) 2-18 by mouth ity of 20 mg 01:35: at [place] tablet 09 bedtime. Medical Branch SUBCUTANEOU 2020-0 Yes Novolog [facility] vers S INSULIN 2-18 insulin ity of PUMP MISC 01:35: pump- 2 [place] 09 units Medical every hour Branch per pump proMETHazin 2020-0 Yes 12.5mg Take 12.5 [facility] e 12.5 mg 2-18 mg by ity of tablet 01:35: mouth [place] 09 every 4 Medical (four) Branch hours as needed. cyclobenzap 2020-0 Yes 10mg Take 10 mg [facility] rine 2-18 by mouth ity of (FLEXERIL) 01:35: as needed [place] 10 mg 09 for Muscle Medical tablet Spasms. Branch gabapentin 2020-0 Yes 800mg Take 800 [facility] (NEURONTIN) 2-18 mg by ity of 800 mg 01:35: mouth 3 [place] tablet 09 (three) Medical times Branch daily. rosuvastati 2020-0 Yes 20mg Take 20 mg [facility] n (CRESTOR) 2-18 by mouth ity of 20 mg 01:35: at [place] tablet 09 bedtime. Medical Branch SUBCUTANEOU 2020-0 Yes Novolog [facility] vers S INSULIN 2-18 insulin ity of PUMP MISC 01:35: pump- 2 [place] 09 units Medical every hour Branch per pump proMETHazin 2020-0 Yes 12.5mg Take 12.5 [facility] e 12.5 mg 2-18 mg by ity of tablet 01:35: mouth [place] 09 every 4 Medical (four) Branch hours as needed. cyclobenzap 2020-0 Yes 10mg Take 10 mg [facility] rine 2-18 by mouth ity of (FLEXERIL) 01:35: as needed [place] 10 mg 09 for Muscle Medical tablet Spasms. Branch gabapentin 2020-0 Yes 800mg Take 800 [facility] (NEURONTIN) 2-18 mg by ity of 800 mg 01:35: mouth 3 [place] tablet 09 (three) Medical times Branch daily. cyclobenzap 2020-0 Yes 10mg Take 10 mg [facility] rine 2-18 by mouth ity of (FLEXERIL) 01:35: as needed [place] 10 mg 09 for Muscle Medical tablet Spasms. Branch gabapentin 2020-0 Yes 800mg Take 800 [facility] (NEURONTIN) 2-18 mg by ity of 800 mg 01:35: mouth 3 [place] tablet 09 (three) Medical times Branch daily. rosuvastati 2020-0 Yes 20mg Take 20 mg [facility] n (CRESTOR) 2-18 by mouth ity of 20 mg 01:35: at [place] tablet 09 bedtime. Medical Branch SUBCUTANEOU 2020-0 Yes Novolog [facility] vers S INSULIN 2-18 insulin ity of PUMP MISC 01:35: pump- 2 [place] 09 units Medical every hour Branch per pump proMETHazin 2020-0 Yes 12.5mg Take 12.5 [facility] e 12.5 mg 2-18 mg by ity of tablet 01:35: mouth [place] 09 every 4 Medical (four) Branch hours as needed. rosuvastati 2020-0 Yes 20mg Take 20 mg [facility] n (CRESTOR) 2-18 by mouth ity of 20 mg 01:35: at [place] tablet 09 bedtime. Medical Branch SUBCUTANEOU 2020-0 Yes Novolog [facility] vers S INSULIN 2-18 insulin ity of PUMP MISC 01:35: pump- 2 [place] 09 units Medical every hour Branch per pump cyclobenzap 2020-0 Yes 10mg Take 10 mg [facility] rine 2-18 by mouth ity of (FLEXERIL) 01:35: as needed [place] 10 mg 09 for Muscle Medical tablet Spasms. Branch gabapentin 2020-0 Yes 800mg Take 800 [facility] (NEURONTIN) 2-18 mg by ity of 800 mg 01:35: mouth 3 [place] tablet 09 (three) Medical times Branch daily. rosuvastati 2020-0 Yes 20mg Take 20 mg [facility] n (CRESTOR) 2-18 by mouth ity of 20 mg 01:35: at [place] tablet 09 bedtime. Medical Branch SUBCUTANEOU 2020-0 Yes Novolog [facility] vers S INSULIN 2-18 insulin ity of PUMP MISC 01:35: pump- 2 [place] 09 units Medical every hour Branch per pump proMETHazin 2020-0 Yes 12.5mg Take 12.5 [facility] e 12.5 mg 2-18 mg by ity of tablet 01:35: mouth [place] every 4 Medical (four) Branch hours as needed. amLODIPine 2020-0 Yes 5mg Take 5 mg [facility] 5 mg tablet 2-18 by mouth ity of 01:35: daily. Medical Branch cyclobenzap 2020-0 Yes 10mg Take 10 mg [facility] rine 2-18 by mouth ity of (FLEXERIL) 01:35: as needed [place] 10 mg 09 for Muscle Medical tablet Spasms. Branch gabapentin 2020-0 Yes 800mg Take 800 [facility] (NEURONTIN) 2-18 mg by ity of 800 mg 01:35: mouth 3 [place] tablet 09 (three) Medical times Branch daily. rosuvastati 2020-0 Yes 20mg Take 20 mg [facility] n (CRESTOR) 2-18 by mouth ity of 20 mg 01:35: at [place] tablet 09 bedtime. Medical Branch SUBCUTANEOU 2020-0 Yes Novolog [facility] vers S INSULIN 2-18 insulin ity of PUMP MISC 01:35: pump- 2 [place] 09 units Medical every hour Branch per pump proMETHazin 2020-0 Yes 12.5mg Take 12.5 [facility] e 12.5 mg 2-18 mg by ity of tablet 01:35: mouth [place] 09 every 4 Medical (four) Branch hours as needed. proMETHazin 2020-0 Yes 12.5mg Take 12.5 [facility] e 12.5 mg 2-18 mg by ity of tablet 01:35: mouth [place] 09 every 4 Medical (four) Branch hours as needed. cyclobenzap 2020-0 Yes 10mg Take 10 mg [facility] rine 2-18 by mouth ity of (FLEXERIL) 01:35: as needed [place] 10 mg 09 for Muscle Medical tablet Spasms. Branch gabapentin 2020-0 Yes 800mg Take 800 [facility] (NEURONTIN) 2-18 mg by ity of 800 mg 01:35: mouth 3 [place] tablet 09 (three) Medical times Branch daily. rosuvastati 2020-0 Yes 20mg Take 20 mg [facility] n (CRESTOR) 2-18 by mouth ity of 20 mg 01:35: at [place] tablet 09 bedtime. Medical Branch SUBCUTANEOU 2020-0 Yes Novolog [facility] vers S INSULIN 2-18 insulin ity of PUMP MISC 01:35: pump- 2 [place] 09 units Medical every hour Branch per pump proMETHazin 2020-0 Yes 12.5mg Take 12.5 [facility] e 12.5 mg 2-18 mg by ity of tablet 01:35: mouth [place] 09 every 4 Medical (four) Branch hours as needed. cyclobenzap 2020-0 Yes 10mg Take 10 mg [facility] rine 2-18 by mouth ity of (FLEXERIL) 01:35: as needed [place] 10 mg 09 for Muscle Medical tablet Spasms. Branch gabapentin 2020-0 Yes 800mg Take 800 [facility] (NEURONTIN) 2-18 mg by ity of 800 mg 01:35: mouth 3 [place] tablet 09 (three) Medical times Branch daily. rosuvastati 2020-0 Yes 20mg Take 20 mg [facility] n (CRESTOR) 2-18 by mouth ity of 20 mg 01:35: at [place] tablet 09 bedtime. Medical Branch SUBCUTANEOU 2020-0 Yes Novolog [facility] vers S INSULIN 2-18 insulin ity of PUMP MISC 01:35: pump- 2 [place] 09 units Medical every hour Branch per pump proMETHazin 2020-0 Yes 12.5mg Take 12.5 [facility] e 12.5 mg 2-18 mg by ity of tablet 01:35: mouth [place] 09 every 4 Medical (four) Branch hours as needed. cyclobenzap 2020-0 Yes 10mg Take 10 mg [facility] rine 2-18 by mouth ity of (FLEXERIL) 01:35: as needed [place] 10 mg 09 for Muscle Medical tablet Spasms. Branch gabapentin 2020-0 Yes 800mg Take 800 [facility] (NEURONTIN) 2-18 mg by ity of 800 mg 01:35: mouth 3 [place] tablet 09 (three) Medical times Branch daily. rosuvastati 2020-0 Yes 20mg Take 20 mg [facility] n (CRESTOR) 2-18 by mouth ity of 20 mg 01:35: at [place] tablet 09 bedtime. Medical Branch SUBCUTANEOU 2020-0 Yes Novolog [facility] vers S INSULIN 2-18 insulin ity of PUMP MISC 01:35: pump- 2 [place] 09 units Medical every hour Branch per pump proMETHazin 2020-0 Yes 12.5mg Take 12.5 [facility] e 12.5 mg 2-18 mg by ity of tablet 01:35: mouth [place] 09 every 4 Medical (four) Branch hours as needed. cyclobenzap 2020-0 Yes 10mg Take 10 mg [facility] rine 2-18 by mouth ity of (FLEXERIL) 01:35: as needed [place] 10 mg 09 for Muscle Medical tablet Spasms. Branch gabapentin 2020-0 Yes 800mg Take 800 [facility] (NEURONTIN) 2-18 mg by ity of 800 mg 01:35: mouth 3 [place] tablet 09 (three) Medical times Branch daily. rosuvastati 2020-0 Yes 20mg Take 20 mg [facility] n (CRESTOR) 2-18 by mouth ity of 20 mg 01:35: at [place] tablet 09 bedtime. Medical Branch SUBCUTANEOU 2020-0 Yes Novolog [facility] vers S INSULIN 2-18 insulin ity of PUMP MISC 01:35: pump- 2 [place] 09 units Medical every hour Branch per pump proMETHazin 2020-0 Yes 12.5mg Take 12.5 [facility] e 12.5 mg 2-18 mg by ity of tablet 01:35: mouth [place] 09 every 4 Medical (four) Branch hours as needed. cyclobenzap 2020-0 Yes 10mg Take 10 mg [facility] rine 2-18 by mouth ity of (FLEXERIL) 01:35: as needed [place] 10 mg 09 for Muscle Medical tablet Spasms. Branch gabapentin 2020-0 Yes 800mg Take 800 [facility] (NEURONTIN) 2-18 mg by ity of 800 mg 01:35: mouth 3 [place] tablet 09 (three) Medical times Branch daily. rosuvastati 2020-0 Yes 20mg Take 20 mg [facility] n (CRESTOR) 2-18 by mouth ity of 20 mg 01:35: at [place] tablet 09 bedtime. Medical Branch SUBCUTANEOU 2020-0 Yes Novolog [facility] vers S INSULIN 2-18 insulin ity of PUMP MISC 01:35: pump- 2 [place] 09 units Medical every hour Branch per pump proMETHazin 2020-0 Yes 12.5mg Take 12.5 [facility] e 12.5 mg 2-18 mg by ity of tablet 01:35: mouth [place] 09 every 4 Medical (four) Branch hours as needed. cyclobenzap 2020-0 Yes 10mg Take 10 mg [facility] rine 2-18 by mouth ity of (FLEXERIL) 01:35: as needed [place] 10 mg 09 for Muscle Medical tablet Spasms. Branch gabapentin 2020-0 Yes 800mg Take 800 [facility] (NEURONTIN) 2-18 mg by ity of 800 mg 01:35: mouth 3 [place] tablet 09 (three) Medical times Branch daily. rosuvastati 2020-0 Yes 20mg Take 20 mg [facility] n (CRESTOR) 2-18 by mouth ity of 20 mg 01:35: at [place] tablet 09 bedtime. Medical Branch SUBCUTANEOU 2020-0 Yes Novolog [facility] vers S INSULIN 2-18 insulin ity of PUMP MISC 01:35: pump- 2 [place] 09 units Medical every hour Branch per pump proMETHazin 2020-0 Yes 12.5mg Take 12.5 [facility] e 12.5 mg 2-18 mg by ity of tablet 01:35: mouth [place] 09 every 4 Medical (four) Branch hours as needed. cyclobenzap 2020-0 Yes 10mg Take 10 mg [facility] rine 2-18 by mouth ity of (FLEXERIL) 01:35: as needed [place] 10 mg 09 for Muscle Medical tablet Spasms. Branch gabapentin 2020-0 Yes 800mg Take 800 [facility] (NEURONTIN) 2-18 mg by ity of 800 mg 01:35: mouth 3 [place] tablet 09 (three) Medical times Branch daily. rosuvastati 2020-0 Yes 20mg Take 20 mg [facility] n (CRESTOR) 2-18 by mouth ity of 20 mg 01:35: at [place] tablet 09 bedtime. Medical Branch SUBCUTANEOU 2020-0 Yes Novolog [facility] vers S INSULIN 2-18 insulin ity of PUMP MISC 01:35: pump- 2 [place] 09 units Medical every hour Branch per pump proMETHazin 2020-0 Yes 12.5mg Take 12.5 [facility] e 12.5 mg 2-18 mg by ity of tablet 01:35: mouth [place] 09 every 4 Medical (four) Branch hours as needed. cyclobenzap 2020-0 Yes 10mg Take 10 mg [facility] rine 2-18 by mouth ity of (FLEXERIL) 01:35: as needed [place] 10 mg 09 for Muscle Medical tablet Spasms. Branch gabapentin 2020-0 Yes 800mg Take 800 [facility] (NEURONTIN) 2-18 mg by ity of 800 mg 01:35: mouth 3 [place] tablet 09 (three) Medical times Branch daily. rosuvastati 2020-0 Yes 20mg Take 20 mg [facility] n (CRESTOR) 2-18 by mouth ity of 20 mg 01:35: at [place] tablet 09 bedtime. Medical Branch SUBCUTANEOU 2020-0 Yes Novolog [facility] vers S INSULIN 2-18 insulin ity of PUMP MISC 01:35: pump- 2 [place] 09 units Medical every hour Branch per pump proMETHazin 2020-0 Yes 12.5mg Take 12.5 [facility] e 12.5 mg 2-18 mg by ity of tablet 01:35: mouth [place] 09 every 4 Medical (four) Branch hours as needed. cyclobenzap 2020-0 Yes 10mg Take 10 mg [facility] rine 2-18 by mouth ity of (FLEXERIL) 01:35: as needed [place] 10 mg 09 for Muscle Medical tablet Spasms. Branch gabapentin 2020-0 Yes 800mg Take 800 [facility] (NEURONTIN) 2-18 mg by ity of 800 mg 01:35: mouth 3 [place] tablet 09 (three) Medical times Branch daily. rosuvastati 2020-0 Yes 20mg Take 20 mg [facility] n (CRESTOR) 2-18 by mouth ity of 20 mg 01:35: at [place] tablet 09 bedtime. Medical Branch SUBCUTANEOU 2020-0 Yes Novolog [facility] vers S INSULIN 2-18 insulin ity of PUMP MISC 01:35: pump- 2 [place] 09 units Medical every hour Branch per pump proMETHazin 2020-0 Yes 12.5mg Take 12.5 [facility] e 12.5 mg 2-18 mg by ity of tablet 01:35: mouth [place] 09 every 4 Medical (four) Branch hours as needed. cyclobenzap 2020-0 Yes 10mg Take 10 mg [facility] rine 2-18 by mouth ity of (FLEXERIL) 01:35: as needed [place] 10 mg 09 for Muscle Medical tablet Spasms. Branch gabapentin 2020-0 Yes 800mg Take 800 [facility] (NEURONTIN) 2-18 mg by ity of 800 mg 01:35: mouth 3 [place] tablet 09 (three) Medical times Branch daily. rosuvastati 2020-0 Yes 20mg Take 20 mg [facility] n (CRESTOR) 2-18 by mouth ity of 20 mg 01:35: at [place] tablet 09 bedtime. Medical Branch SUBCUTANEOU 2020-0 Yes Novolog [facility] vers S INSULIN 2-18 insulin ity of PUMP MISC 01:35: pump- 2 [place] 09 units Medical every hour Branch per pump proMETHazin 2020-0 Yes 12.5mg Take 12.5 [facility] e 12.5 mg 2-18 mg by ity of tablet 01:35: mouth [place] 09 every 4 Medical (four) Branch hours as needed. cyclobenzap 2020-0 Yes 10mg Take 10 mg [facility] rine 2-18 by mouth ity of (FLEXERIL) 01:35: as needed [place] 10 mg 09 for Muscle Medical tablet Spasms. Branch gabapentin 2020-0 Yes 800mg Take 800 [facility] (NEURONTIN) 2-18 mg by ity of 800 mg 01:35: mouth 3 [place] tablet 09 (three) Medical times Branch daily. rosuvastati 2020-0 Yes 20mg Take 20 mg [facility] n (CRESTOR) 2-18 by mouth ity of 20 mg 01:35: at [place] tablet 09 bedtime. Medical Branch SUBCUTANEOU 2020-0 Yes Novolog Uni vers S INSULIN 2-18 insulin ity of PUMP MISC 01:35: pump- 2 [place] 09 units Medical every hour Branch per pump proMETHazin 2020-0 Yes 12.5mg Take 12.5 [facility] e 12.5 mg 2-18 mg by ity of tablet 01:35: mouth [place] 09 every 4 Medical (four) Branch hours as needed. cyclobenzap 2020-0 Yes 10mg Take 10 mg [facility] rine 2-18 by mouth ity of (FLEXERIL) 01:35: as needed [place] 10 mg 09 for Muscle Medical tablet Spasms. Branch gabapentin 2020-0 Yes 800mg Take 800 [facility] (NEURONTIN) 2-18 mg by ity of 800 mg 01:35: mouth 3 [place] tablet 09 (three) Medical times Branch daily. rosuvastati 2020-0 Yes 20mg Take 20 mg [facility] n (CRESTOR) 2-18 by mouth ity of 20 mg 01:35: at [place] tablet 09 bedtime. Medical Branch SUBCUTANEOU 2020-0 Yes Novolog [facility] vers S INSULIN 2-18 insulin ity of PUMP MISC 01:35: pump- 2 [place] 09 units Medical every hour Branch per pump cyclobenzap 2020-0 Yes 10mg Take 10 mg [facility] rine 2-18 by mouth ity of (FLEXERIL) 01:35: as needed [place] 10 mg 09 for Muscle Medical tablet Spasms. Branch proMETHazin 2020-0 Yes 12.5mg Take 12.5 [facility] e 12.5 mg 2-18 mg by ity of tablet 01:35: mouth [place] 09 every 4 Medical (four) Branch hours as needed. gabapentin 2020-0 Yes 800mg Take 800 [facility] (NEURONTIN) 2-18 mg by ity of 800 mg 01:35: mouth 3 [place] tablet 09 (three) Medical times Branch daily. rosuvastati 2020-0 Yes 20mg Take 20 mg [facility] n (CRESTOR) 2-18 by mouth ity of 20 mg 01:35: at [place] tablet 09 bedtime. Medical Branch cyclobenzap 2020-0 Yes 10mg Take 10 mg [facility] rine 2-18 by mouth ity of (FLEXERIL) 01:35: as needed [place] 10 mg 09 for [facility] Medical tablet Spasms. Branch gabapentin 2020-0 Yes 800mg Take 800 [facility] (NEURONTIN) 2-18 mg by ity of 800 mg 01:35: mouth 3 [place] tablet 09 (three) Medical times Branch daily. rosuvastati 2020-0 Yes 20mg Take 20 mg [facility] n (CRESTOR) 2-18 by mouth ity of 20 mg 01:35: at [place] tablet 09 bedtime. Medical Branch SUBCUTANEOU 2020-0 Yes Novolog [facility] vers S INSULIN 2-18 insulin ity of PUMP MISC 01:35: pump- 2 [place] 09 units Medical every hour Branch per pump SUBCUTANEOU 2020-0 Yes Novolog [facility] vers S INSULIN 2-18 insulin ity of PUMP MISC 01:35: pump- 2 [place] 09 units Medical every hour Branch per pump proMETHazin 2020-0 Yes 12.5mg Take 12.5 [facility] e 12.5 mg 2-18 mg by ity of tablet 01:35: mouth [place] 09 every 4 Medical (four) Branch hours as needed. cyclobenzap 2020-0 Yes 10mg Take 10 mg [facility] rine 2-18 by mouth ity of (FLEXERIL) 01:35: as needed [place] 10 mg 09 for [facility]cle Medical tablet Spasms. Branch gabapentin 2020-0 Yes 800mg Take 800 [facility] (NEURONTIN) 2-18 mg by ity of 800 mg 01:35: mouth 3 [place] tablet 09 (three) Medical times Branch daily. rosuvastati 2020-0 Yes 20mg Take 20 mg [facility] n (CRESTOR) 2-18 by mouth ity of 20 mg 01:35: at [place] tablet 09 bedtime. Medical Branch SUBCUTANEOU 2020-0 Yes Novolog [facility] vers S INSULIN 2-18 insulin ity of PUMP MISC 01:35: pump- 2 [place] 09 units Medical every hour Branch per pump cyclobenzap 2020-0 Yes 10mg Take 10 mg [facility] rine 2-17 by mouth ity of (FLEXERIL) 19:35: as needed [place] 10 mg 09 for [facility]cle Medical tablet Spasms. Branch gabapentin 2020-0 Yes 800mg Take 800 [facility] (NEURONTIN) 2-17 mg by ity of 800 mg 19:35: mouth 3 [place] tablet 09 (three) Medical times Branch daily. rosuvastati 2020-0 Yes 20mg Take 20 mg [facility] n (CRESTOR) 2-17 by mouth ity of 20 mg 19:35: at [place] tablet 09 bedtime. Medical Branch SUBCUTANEOU 2020-0 Yes Novolog [facility] vers S INSULIN 2-17 insulin ity of PUMP MISC 19:35: pump- 2 [place] 09 units Medical every hour Branch per pump proMETHazin 2020-0 Yes 12.5mg Take 12.5 [facility] e 12.5 mg 2-17 mg by ity of tablet 19:35: mouth [place] 09 every 4 Medical (four) Branch hours as needed. cyclobenzap 2020-0 Yes 10mg Take 10 mg [facility] rine 2-17 by mouth ity of (FLEXERIL) 19:35: as needed [place] 10 mg 09 for Muscle Medical tablet Spasms. Branch gabapentin 2020-0 Yes 800mg Take 800 [facility] (NEURONTIN) 2-17 mg by ity of 800 mg 19:35: mouth 3 [place] tablet 09 (three) Medical times Branch daily. rosuvastati 2020-0 Yes 20mg Take 20 mg [facility] n (CRESTOR) 2-17 by mouth ity of 20 mg 19:35: at [place] tablet 09 bedtime. Medical Branch SUBCUTANEOU 2020-0 Yes Novolog [facility] vers S INSULIN 2-17 insulin ity of PUMP MISC 19:35: pump- 2 [place] 09 units Medical every hour Branch per pump proMETHazin 2020-0 Yes 12.5mg Take 12.5 [facility] e 12.5 mg 2-17 mg by ity of tablet 19:35: mouth [place] 09 every 4 Medical (four) Branch hours as needed. cyclobenzap 2020-0 Yes 10mg Take 10 mg [facility] rine 2-17 by mouth ity of (FLEXERIL) 19:35: as needed [place] 10 mg 09 for [facility]cle Medical tablet Spasms. Branch gabapentin 2020-0 Yes 800mg Take 800 [facility] (NEURONTIN) 2-17 mg by ity of 800 mg 19:35: mouth 3 [place] tablet 09 (three) Medical times Branch daily. rosuvastati 2020-0 Yes 20mg Take 20 mg [facility] n (CRESTOR) 2-17 by mouth ity of 20 mg 19:35: at [place] tablet 09 bedtime. Medical Branch SUBCUTANEOU 2020-0 Yes Novolog [facility] vers S INSULIN 2-17 insulin ity of PUMP MISC 19:35: pump- 2 [place] 09 units Medical every hour Branch per pump proMETHazin 2020-0 Yes 12.5mg Take 12.5 [facility] e 12.5 mg 2-17 mg by ity of tablet 19:35: mouth [place] 09 every 4 Medical (four) Branch hours as needed. cyclobenzap 2020-0 Yes 10mg Take 10 mg [facility] rine 2-17 by mouth ity of (FLEXERIL) 19:35: as needed [place] 10 mg 09 for Muscle Medical tablet Spasms. Branch gabapentin 2020-0 Yes 800mg Take 800 [facility] (NEURONTIN) 2-17 mg by ity of 800 mg 19:35: mouth 3 [place] tablet 09 (three) Medical times Branch daily. rosuvastati 2020-0 Yes 20mg Take 20 mg [facility] n (CRESTOR) 2-17 by mouth ity of 20 mg 19:35: at [place] tablet 09 bedtime. Medical Branch SUBCUTANEOU 2020-0 Yes Novolog [facility] vers S INSULIN 2-17 insulin ity of PUMP MISC 19:35: pump- 2 [place] 09 units Medical every hour Branch per pump proMETHazin 2020-0 Yes 12.5mg Take 12.5 [facility] e 12.5 mg 2-17 mg by ity of tablet 19:35: mouth [place] 09 every 4 Medical (four) Branch hours as needed. cyclobenzap 2020-0 Yes 10mg Take 10 mg [facility] rine 2-17 by mouth ity of (FLEXERIL) 19:35: as needed [place] 10 mg 09 for [facility]cle Medical tablet Spasms. Branch gabapentin 2020-0 Yes 800mg Take 800 [facility] (NEURONTIN) 2-17 mg by ity of 800 mg 19:35: mouth 3 [place] tablet 09 (three) Medical times Branch daily. rosuvastati 2020-0 Yes 20mg Take 20 mg [facility] n (CRESTOR) 2-17 by mouth ity of 20 mg 19:35: at [place] tablet 09 bedtime. Medical Branch SUBCUTANEOU 2020-0 Yes Novolog [facility] vers S INSULIN 2-17 insulin ity of PUMP MISC 19:35: pump- 2 [place] 09 units Medical every hour Branch per pump proMETHazin 2020-0 Yes 12.5mg Take 12.5 [facility] e 12.5 mg 2-17 mg by ity of tablet 19:35: mouth [place] 09 every 4 Medical (four) Branch hours as needed. cyclobenzap 2020-0 Yes 10mg Take 10 mg [facility] rine 2-17 by mouth ity of (FLEXERIL) 19:35: as needed [place] 10 mg 09 for Muscle Medical tablet Spasms. Branch gabapentin 2020-0 Yes 800mg Take 800 [facility] (NEURONTIN) 2-17 mg by ity of 800 mg 19:35: mouth 3 [place] tablet 09 (three) Medical times Branch daily. rosuvastati 2020-0 Yes 20mg Take 20 mg [facility] n (CRESTOR) 2-17 by mouth ity of 20 mg 19:35: at [place] tablet 09 bedtime. Medical Branch SUBCUTANEOU 2020-0 Yes Novolog [facility] vers S INSULIN 2-17 insulin ity of PUMP MISC 19:35: pump- 2 [place] 09 units Medical every hour Branch per pump proMETHazin 2020-0 Yes 12.5mg Take 12.5 [facility] e 12.5 mg 2-17 mg by ity of tablet 19:35: mouth [place] 09 every 4 Medical (four) Branch hours as needed. cyclobenzap 2020-0 Yes 10mg Take 10 mg [facility] rine 2-17 by mouth ity of (FLEXERIL) 19:35: as needed [place] 10 mg 09 for Muscle Medical tablet Spasms. Branch gabapentin 2020-0 Yes 800mg Take 800 [facility] (NEURONTIN) 2-17 mg by ity of 800 mg 19:35: mouth 3 [place] tablet 09 (three) Medical times Branch daily. rosuvastati 2020-0 Yes 20mg Take 20 mg [facility] n (CRESTOR) 2-17 by mouth ity of 20 mg 19:35: at [place] tablet 09 bedtime. Medical Branch SUBCUTANEOU 2020-0 Yes Novolog [facility] vers S INSULIN 2-17 insulin ity of PUMP MISC 19:35: pump- 2 [place] 09 units Medical every hour Branch per pump proMETHazin 2020-0 Yes 12.5mg Take 12.5 [facility] e 12.5 mg 2-17 mg by ity of tablet 19:35: mouth [place] 09 every 4 Medical (four) Branch hours as needed. cyclobenzap 2020-0 Yes 10mg Take 10 mg [facility] rine 2-17 by mouth ity of (FLEXERIL) 19:35: as needed [place] 10 mg 09 for Muscle Medical tablet Spasms. Branch gabapentin 2020-0 Yes 800mg Take 800 [facility] (NEURONTIN) 2-17 mg by ity of 800 mg 19:35: mouth 3 [place] tablet 09 (three) Medical times Branch daily. rosuvastati 2020-0 Yes 20mg Take 20 mg [facility] n (CRESTOR) 2-17 by mouth ity of 20 mg 19:35: at [place] tablet 09 bedtime. Medical Branch SUBCUTANEOU 2020-0 Yes Novolog [facility] vers S INSULIN 2-17 insulin ity of PUMP MISC 19:35: pump- 2 [place] 09 units Medical every hour Branch per pump proMETHazin 2020-0 Yes 12.5mg Take 12.5 [facility] e 12.5 mg 2-17 mg by ity of tablet 19:35: mouth [place] 09 every 4 Medical (four) Branch hours as needed. cyclobenzap 2020-0 Yes 10mg Take 10 mg [facility] rine 2-17 by mouth ity of (FLEXERIL) 19:35: as needed [place] 10 mg 09 for Muscle Medical tablet Spasms. Branch gabapentin 2020-0 Yes 800mg Take 800 [facility] (NEURONTIN) 2-17 mg by ity of 800 mg 19:35: mouth 3 [place] tablet 09 (three) Medical times Branch daily. rosuvastati 2020-0 Yes 20mg Take 20 mg [facility] n (CRESTOR) 2-17 by mouth ity of 20 mg 19:35: at [place] tablet 09 bedtime. Medical Branch SUBCUTANEOU 2020-0 Yes Novolog [facility] vers S INSULIN 2-17 insulin ity of PUMP MISC 19:35: pump- 2 [place] 09 units Medical every hour Branch per pump proMETHazin 2020-0 Yes 12.5mg Take 12.5 [facility] e 12.5 mg 2-17 mg by ity of tablet 19:35: mouth [place] 09 every 4 Medical (four) Branch hours as needed. cyclobenzap 2020-0 Yes 10mg Take 10 mg [facility] rine 2-17 by mouth ity of (FLEXERIL) 19:35: as needed [place] 10 mg 09 for Muscle Medical tablet Spasms. Branch gabapentin 2020-0 Yes 800mg Take 800 [facility] (NEURONTIN) 2-17 mg by ity of 800 mg 19:35: mouth 3 [place] tablet 09 (three) Medical times Branch daily. rosuvastati 2020-0 Yes 20mg Take 20 mg [facility] n (CRESTOR) 2-17 by mouth ity of 20 mg 19:35: at [place] tablet 09 bedtime. Medical Branch SUBCUTANEOU 2020-0 Yes Novolog [facility] vers S INSULIN 2-17 insulin ity of PUMP MISC 19:35: pump- 2 [place] 09 units Medical every hour Branch per pump proMETHazin 2020-0 Yes 12.5mg Take 12.5 [facility] e 12.5 mg 2-17 mg by ity of tablet 19:35: mouth [place] 09 every 4 Medical (four) Branch hours as needed. cyclobenzap 2020-0 Yes 10mg Take 10 mg [facility] rine 2-17 by mouth ity of (FLEXERIL) 19:35: as needed [place] 10 mg 09 for Muscle Medical tablet Spasms. Branch gabapentin 2020-0 Yes 800mg Take 800 [facility] (NEURONTIN) 2-17 mg by ity of 800 mg 19:35: mouth 3 [place] tablet 09 (three) Medical times Branch daily. rosuvastati 2020-0 Yes 20mg Take 20 mg [facility] n (CRESTOR) 2-17 by mouth ity of 20 mg 19:35: at [place] tablet 09 bedtime. Medical Branch SUBCUTANEOU 2020-0 Yes Novolog [facility] vers S INSULIN 2-17 insulin ity of PUMP MISC 19:35: pump- 2 [place] 09 units Medical every hour Branch per pump proMETHazin 2020-0 Yes 12.5mg Take 12.5 [facility] e 12.5 mg 2-17 mg by ity of tablet 19:35: mouth [place] 09 every 4 Medical (four) Branch hours as needed. cyclobenzap 2020-0 Yes 10mg Take 10 mg [facility] rine 2-17 by mouth ity of (FLEXERIL) 19:35: as needed [place] 10 mg 09 for Muscle Medical tablet Spasms. Branch gabapentin 2020-0 Yes 800mg Take 800 [facility] (NEURONTIN) 2-17 mg by ity of 800 mg 19:35: mouth 3 [place] tablet 09 (three) Medical times Branch daily. rosuvastati 2020-0 Yes 20mg Take 20 mg [facility] n (CRESTOR) 2-17 by mouth ity of 20 mg 19:35: at [place] tablet 09 bedtime. Medical Branch SUBCUTANEOU 2020-0 Yes Novolog [facility] vers S INSULIN 2-17 insulin ity of PUMP MISC 19:35: pump- 2 [place] 09 units Medical every hour Branch per pump proMETHazin 2020-0 Yes 12.5mg Take 12.5 [facility] e 12.5 mg 2-17 mg by ity of tablet 19:35: mouth [place] 09 every 4 Medical (four) Branch hours as needed. cyclobenzap 2020-0 Yes 10mg Take 10 mg [facility] rine 2-17 by mouth ity of (FLEXERIL) 19:35: as needed [place] 10 mg 09 for Muscle Medical tablet Spasms. Branch gabapentin 2020-0 Yes 800mg Take 800 [facility] (NEURONTIN) 2-17 mg by ity of 800 mg 19:35: mouth 3 [place] tablet 09 (three) Medical times Branch daily. rosuvastati 2020-0 Yes 20mg Take 20 mg [facility] n (CRESTOR) 2-17 by mouth ity of 20 mg 19:35: at [place] tablet 09 bedtime. Medical Branch SUBCUTANEOU 2020-0 Yes Novolog [facility] vers S INSULIN 2-17 insulin ity of PUMP MISC 19:35: pump- 2 [place] 09 units Medical every hour Branch per pump proMETHazin 2020-0 Yes 12.5mg Take 12.5 [facility] e 12.5 mg 2-17 mg by ity of tablet 19:35: mouth [place] 09 every 4 Medical (four) Branch hours as needed. cyclobenzap 2020-0 Yes 10mg Take 10 mg [facility] rine 2-17 by mouth ity of (FLEXERIL) 19:35: as needed [place] 10 mg 09 for Muscle Medical tablet Spasms. Branch gabapentin 2020-0 Yes 800mg Take 800 [facility] (NEURONTIN) 2-17 mg by ity of 800 mg 19:35: mouth 3 [place] tablet 09 (three) Medical times Branch daily. rosuvastati 2020-0 Yes 20mg Take 20 mg [facility] n (CRESTOR) 2-17 by mouth ity of 20 mg 19:35: at [place] tablet 09 bedtime. Medical Branch SUBCUTANEOU 2020-0 Yes Novolog [facility] vers S INSULIN 2-17 insulin ity of PUMP MISC 19:35: pump- 2 [place] 09 units Medical every hour Branch per pump proMETHazin 2020-0 Yes 12.5mg Take 12.5 [facility] e 12.5 mg 2-17 mg by ity of tablet 19:35: mouth [place] 09 every 4 Medical (four) Branch hours as needed. cyclobenzap 2020-0 Yes 10mg Take 10 mg [facility] rine 2-17 by mouth ity of (FLEXERIL) 19:35: as needed [place] 10 mg 09 for Muscle Medical tablet Spasms. Branch gabapentin 2020-0 Yes 800mg Take 800 [facility] (NEURONTIN) 2-17 mg by ity of 800 mg 19:35: mouth 3 [place] tablet 09 (three) Medical times Branch daily. rosuvastati 2020-0 Yes 20mg Take 20 mg [facility] n (CRESTOR) 2-17 by mouth ity of 20 mg 19:35: at [place] tablet 09 bedtime. Medical Branch SUBCUTANEOU 2020-0 Yes Novolog [facility] vers S INSULIN 2-17 insulin ity of PUMP MISC 19:35: pump- 2 [place] 09 units Medical every hour Branch per pump proMETHazin 2020-0 Yes 12.5mg Take 12.5 [facility] e 12.5 mg 2-17 mg by ity of tablet 19:35: mouth [place] 09 every 4 Medical (four) Branch hours as needed. cyclobenzap 2020-0 Yes 10mg Take 10 mg [facility] rine 2-17 by mouth ity of (FLEXERIL) 19:35: as needed [place] 10 mg 09 for Muscle Medical tablet Spasms. Branch gabapentin 2020-0 Yes 800mg Take 800 [facility] (NEURONTIN) 2-17 mg by ity of 800 mg 19:35: mouth 3 [place] tablet 09 (three) Medical times Branch daily. rosuvastati 2020-0 Yes 20mg Take 20 mg [facility] n (CRESTOR) 2-17 by mouth ity of 20 mg 19:35: at [place] tablet 09 bedtime. Medical Branch SUBCUTANEOU 2020-0 Yes Novolog [facility] vers S INSULIN 2-17 insulin ity of PUMP MISC 19:35: pump- 2 [place] 09 units Medical every hour Branch per pump proMETHazin 2020-0 Yes 12.5mg Take 12.5 [facility] e 12.5 mg 2-17 mg by ity of tablet 19:35: mouth [place] 09 every 4 Medical (four) Branch hours as needed. cyclobenzap 2020-0 Yes 10mg Take 10 mg [facility] rine 2-17 by mouth ity of (FLEXERIL) 19:35: as needed [place] 10 mg 09 for Muscle Medical tablet Spasms. Branch gabapentin 2020-0 Yes 800mg Take 800 [facility] (NEURONTIN) 2-17 mg by ity of 800 mg 19:35: mouth 3 [place] tablet 09 (three) Medical times Branch daily. rosuvastati 2020-0 Yes 20mg Take 20 mg [facility] n (CRESTOR) 2-17 by mouth ity of 20 mg 19:35: at [place] tablet 09 bedtime. Medical Branch SUBCUTANEOU 2020-0 Yes Novolog [facility] vers S INSULIN 2-17 insulin ity of PUMP MISC 19:35: pump- 2 [place] 09 units Medical every hour Branch per pump proMETHazin 2020-0 Yes 12.5mg Take 12.5 [facility] e 12.5 mg 2-17 mg by ity of tablet 19:35: mouth [place] 09 every 4 Medical (four) Branch hours as needed. cyclobenzap 2020-0 Yes 10mg Take 10 mg [facility] rine 2-17 by mouth ity of (FLEXERIL) 19:35: as needed [place] 10 mg 09 for Muscle Medical tablet Spasms. Branch gabapentin 2020-0 Yes 800mg Take 800 [facility] (NEURONTIN) 2-17 mg by ity of 800 mg 19:35: mouth 3 [place] tablet 09 (three) Medical times Branch daily. rosuvastati 2020-0 Yes 20mg Take 20 mg [facility] n (CRESTOR) 2-17 by mouth ity of 20 mg 19:35: at [place] tablet 09 bedtime. Medical Branch SUBCUTANEOU 2020-0 Yes Novolog [facility] vers S INSULIN 2-17 insulin ity of PUMP MISC 19:35: pump- 2 [place] 09 units Medical every hour Branch per pump proMETHazin 2020-0 Yes 12.5mg Take 12.5 [facility] e 12.5 mg 2-17 mg by ity of tablet 19:35: mouth [place] 09 every 4 Medical (four) Branch hours as needed. cyclobenzap 2020-0 Yes 10mg Take 10 mg [facility] rine 2-17 by mouth ity of (FLEXERIL) 19:35: as needed [place] 10 mg 09 for Muscle Medical tablet Spasms. Branch gabapentin 2020-0 Yes 800mg Take 800 [facility] (NEURONTIN) 2-17 mg by ity of 800 mg 19:35: mouth 3 [place] tablet 09 (three) Medical times Branch daily. rosuvastati 2020-0 Yes 20mg Take 20 mg [facility] n (CRESTOR) 2-17 by mouth ity of 20 mg 19:35: at [place] tablet 09 bedtime. Medical Branch SUBCUTANEOU 2020-0 Yes Novolog [facility] vers S INSULIN 2-17 insulin ity of PUMP MISC 19:35: pump- 2 [place] 09 units Medical every hour Branch per pump proMETHazin 2020-0 Yes 12.5mg Take 12.5 [facility] e 12.5 mg 2-17 mg by ity of tablet 19:35: mouth [place] 09 every 4 Medical (four) Branch hours as needed. benzonatate 2020-0 Yes [id number] 200mg Take 1 [facility] 200 mg 2-17 capsule by ity of capsule 00:00: mouth 3 [place] 00 (three) Medical times Branch daily as needed for Cough. benzonatate 2020-0 Yes [id number] 200mg Take 1 [facility] 200 mg 2-17 capsule by ity of capsule 00:00: mouth 3 [place] 00 (three) Medical times Branch daily as needed for Cough. benzonatate 2019-0 2020- No [id number] 200mg Take 1 [facility] 200 mg 2-17 - capsule by ity of capsule 00:00: 00:00 mouth 3 [place] 00 :00 (three) Medical times Branch daily as needed for Cough. benzonatate 2019-0 2020- No [id number] 200mg Take 1 [facility] 200 mg 2-17 - capsule by ity of capsule 00:00: 00:00 mouth 3 [place] 00 :00 (three) Medical times Branch daily as needed for Cough. oseltamivir 2019- 2020- No [id number] 75mg Take 1 [facility] 75 mg 2-09 06- capsule by ity of capsule 00:00: 05:59 mouth 2 [place] 00 :00 (two) Medical times Branch daily for 5 days. oseltamivir 2019- 2020- No [id number] 75mg Take 1 [facility] 75 mg 2-09 06- capsule by ity of capsule 00:00: 05:59 mouth 2 [place] 00 :00 (two) Medical times Branch daily for 5 days. albuterol 0 Yes [facility] 2.5 mg /3 1-23 ity of mL (0.083 00:00: [place] %) 00 Medical nebulizer Branch solution CONTOUR 2019-0 Yes [facility] NEXT TEST 1-23 ity of STRIPS 00:00: [place] strip 00 Medical Branch buPROPion 2019-0 Yes [facility] XL 150 mg -23 ity of 24 hr 00:00: [place] tablet 00 Medical Branch FREESTYLE 2019-0 Yes [facility] LINDY 14 1-23 ity of DAY SENSOR 00:00: [place] Kit 00 Medical Branch ADVAIR 2019-0 Yes [facility] DISKUS 1-23 ity of 250-50 00:00: [place] mcg/dose 00 Medical inhalation Branch disk traMADol 50 2019-0 Yes Univer s mg tablet -23 ity of 00:00: [place] 00 Medical Branch albuterol 2019-0 Yes [facility] 2.5 mg /3 1-23 ity of mL (0.083 00:00: [place] %) 00 Medical nebulizer Branch solution CONTOUR 2020-0 Yes [facility] NEXT TEST 1-23 ity of STRIPS 00:00: [place] strip 00 Medical Branch buPROPion 2020-0 Yes [facility] XL 150 mg 1-23 ity of 24 hr 00:00: [place] tablet 00 Medical Branch FREESTYLE 2020-0 Yes [facility] LINDY 14 -23 ity of DAY SENSOR 00:00: [place] Kit 00 Medical Branch ADVAIR 2020-0 Yes [facility] DISKUS 1-23 ity of 250-50 00:00: [place] mcg/dose 00 Medical inhalation Branch disk traMADol 50 2019-0 Yes Univer s mg tablet 1-23 ity of 00:00: [place] 00 Medical Branch albuterol 2020-0 Yes [facility] 2.5 mg /3 -23 ity of mL (0.083 00:00: [place] %) 00 Medical nebulizer Branch solution CONTOUR 2019-0 Yes [facility] NEXT TEST - ity of STRIPS 00:00: [place] strip 00 Medical Branch buPROPion 2020-0 Yes [facility] XL 150 mg 1-23 ity of 24 hr 00:00: [place] tablet 00 Medical Branch FREESTYLE 2019-0 Yes [facility] LINDY 14 -23 ity of DAY SENSOR 00:00: [place] Kit 00 Medical Branch ADVAIR 2019-0 Yes [facility] DISKUS 1-23 ity of 250-50 00:00: [place] mcg/dose 00 Medical inhalation Branch disk traMADol 50 2019-0 Yes Univer s mg tablet 1-23 ity of 00:00: [place] 00 Medical Branch albuterol 2020-0 Yes [facility] 2.5 mg /3 -23 ity of mL (0.083 00:00: [place] %) 00 Medical nebulizer Branch solution CONTOUR 2020-0 Yes [facility] NEXT TEST 1-23 ity of STRIPS 00:00: [place] strip 00 Medical Branch buPROPion 2020-0 Yes [facility] XL 150 mg 1-23 ity of 24 hr 00:00: [place] tablet 00 Medical Branch FREESTYLE 2020-0 Yes [facility] LINDY 14 1-23 ity of DAY SENSOR 00:00: [place] Kit 00 Medical Branch albuterol 2020-0 Yes [facility] 2.5 mg /3 1-23 ity of mL (0.083 00:00: [place] %) 00 Medical nebulizer Branch solution CONTOUR 2020-0 Yes [facility] NEXT TEST 1-23 ity of STRIPS 00:00: [place] strip 00 Medical Branch buPROPion 2020-0 Yes [facility] XL 150 mg 1-23 ity of 24 hr 00:00: [place] tablet 00 Medical Branch ADVAIR 2020-0 Yes [facility] DISKUS 1-23 ity of 250-50 00:00: [place] mcg/dose 00 Medical inhalation Branch disk FREESTYLE 2020-0 Yes [facility] LINDY 14 1-23 ity of DAY SENSOR 00:00: [place] Kit 00 Medical Branch ADVAIR 2020-0 Yes [facility] DISKUS 1-23 ity of 250-50 00:00: [place] mcg/dose 00 Medical inhalation Branch disk traMADol 50 2019-0 Yes Univer s mg tablet 1-23 ity of 00:00: [place] 00 Medical Branch albuterol 2020-0 Yes [facility] 2.5 mg /3 1-23 ity of mL (0.083 00:00: [place] %) 00 Medical nebulizer Branch solution CONTOUR 0 Yes [facility] NEXT TEST 1-23 ity of STRIPS 00:00: [place] strip 00 Medical Branch buPROPion 2019-0 Yes [facility] XL 150 mg 1-23 ity of 24 hr 00:00: [place] tablet 00 Medical Branch traMADol 50 2019-0 Yes Univer s mg tablet 1-23 ity of 00:00: [place] 00 Medical Branch FREESTYLE 2019-0 Yes [facility] LINDY 14 1-23 ity of DAY SENSOR 00:00: [place] Kit 00 Medical Branch ADVAIR 2019-0 Yes [facility] DISKUS 1-23 ity of 250-50 00:00: [place] mcg/dose 00 Medical inhalation Branch disk traMADol 50 2019-0 Yes Univer s mg tablet 1-23 ity of 00:00: [place] 00 Medical Branch albuterol 2020-0 Yes [facility] 2.5 mg /3 1-23 ity of mL (0.083 00:00: [place] %) 00 Medical nebulizer Branch solution CONTOUR 2020-0 Yes [facility] NEXT TEST 1-23 ity of STRIPS 00:00: [place] strip 00 Medical Branch buPROPion 2020-0 Yes [facility] XL 150 mg 1-23 ity of 24 hr 00:00: [place] tablet 00 Medical Branch FREESTYLE 2020-0 Yes [facility] LINDY 14 1-23 ity of DAY SENSOR 00:00: [place] Kit 00 Medical Branch ADVAIR 2020-0 Yes [facility] DISKUS 1-23 ity of 250-50 00:00: [place] mcg/dose 00 Medical inhalation Branch disk traMADol 50 2020-0 Yes Univer s mg tablet 1-23 ity of 00:00: [place] 00 Medical Branch albuterol 2020-0 Yes [facility] 2.5 mg /3 1-23 ity of mL (0.083 00:00: [place] %) 00 Medical nebulizer Branch solution CONTOUR 2020-0 Yes [facility] NEXT TEST 1-23 ity of STRIPS 00:00: [place] strip 00 Medical Branch buPROPion 2020-0 Yes [facility] XL 150 mg 1-23 ity of 24 hr 00:00: [place] tablet 00 Medical Branch FREESTYLE 2020-0 Yes [facility] LINDY 14 1-23 ity of DAY SENSOR 00:00: [place] Kit 00 Medical Branch ADVAIR 2020-0 Yes [facility] DISKUS 1-23 ity of 250-50 00:00: [place] mcg/dose 00 Medical inhalation Branch disk traMADol 50 2019-0 Yes Univer s mg tablet 1-23 ity of 00:00: [place] 00 Medical Branch albuterol 2020-0 Yes [facility] 2.5 mg /3 1-23 ity of mL (0.083 00:00: [place] %) 00 Medical nebulizer Branch solution CONTOUR 2020-0 Yes [facility] NEXT TEST 1-23 ity of STRIPS 00:00: [place] strip 00 Medical Branch buPROPion 2020-0 Yes [facility] XL 150 mg 1-23 ity of 24 hr 00:00: [place] tablet 00 Medical Branch FREESTYLE 2020-0 Yes [facility] LINDY 14 1-23 ity of DAY SENSOR 00:00: [place] Kit 00 Medical Branch ADVAIR 2020-0 Yes [facility] DISKUS 1-23 ity of 250-50 00:00: [place] mcg/dose 00 Medical inhalation Branch disk traMADol 50 2020-0 Yes Univer s mg tablet 1-23 ity of 00:00: [place] 00 Medical Branch albuterol 2020-0 Yes [facility] 2.5 mg /3 1-23 ity of mL (0.083 00:00: [place] %) 00 Medical nebulizer Branch solution CONTOUR 2020-0 Yes [facility] NEXT TEST 1-23 ity of STRIPS 00:00: [place] strip 00 Medical Branch buPROPion 2020-0 Yes [facility] XL 150 mg 1-23 ity of 24 hr 00:00: [place] tablet 00 Medical Branch FREESTYLE 2020-0 Yes [facility] LINDY 14 1-23 ity of DAY SENSOR 00:00: [place] Kit 00 Medical Branch ADVAIR 2020-0 Yes [facility] DISKUS 1-23 ity of 250-50 00:00: [place] mcg/dose 00 Medical inhalation Branch disk traMADol 50 2020-0 Yes Un[facility] mg tablet 1-23 ity of 00:00: [place] 00 Medical Branch albuterol 2020-0 Yes [facility] 2.5 mg /3 1-23 ity of mL (0.083 00:00: [place] %) 00 Medical nebulizer Branch solution CONTOUR 2020-0 Yes [facility] NEXT TEST 1-23 ity of STRIPS 00:00: [place] strip 00 Medical Branch buPROPion 2020-0 Yes [facility] XL 150 mg 1-23 ity of 24 hr 00:00: [place] tablet 00 Medical Branch FREESTYLE 2020-0 Yes [facility] LINDY 14 1-23 ity of DAY SENSOR 00:00: [place] Kit 00 Medical Branch ADVAIR 2020-0 Yes [facility] DISKUS 1-23 ity of 250-50 00:00: [place] mcg/dose 00 Medical inhalation Branch disk traMADol 50 2020-0 Yes [facility] mg tablet 1-23 ity of 00:00: [place] 00 Medical Branch albuterol 2020-0 Yes [facility] 2.5 mg /3 -23 ity of mL (0.083 00:00: [place] %) 00 [facility] nebul[facility] solution CONTOUR 2020-0 Yes [facility] NEXT TEST 1-23 it[facility] of STRIPS 00:00: [place] strip 00 [facility] buPROPion 2020-0 Yes [facility] XL 150 mg 1-23 ity of 24 hr 00:00: [place] tablet 00 [facility] FREESTYLE 2019-0 Yes [facility] LINDY 14 1-23 ity of DAY SENSOR 00:00: [place] Kit 00 [facility] ADVAIR 2020-0 Yes [facility] DISKUS 1-23 ity of 250-50 00:00: [place] mcg/dose 00 [facility] inhalation [facility] disk traMADol 50 2020-0 Yes [facility] mg tablet 1-23 ity of 00:00: [place] 00 [facility] albuterol 2020-0 Yes [facility] 2.5 mg /3 1-23 ity of mL (0.083 00:00: [place] %) 00 [facility] nebulizer [facility] solution CONTOUR 2020-0 Yes [facility] NEXT TEST 1-23 ity of STRIPS 00:00: [place] strip 00 [facility] buPROPion 2020-0 Yes [facility] XL 150 mg 1-23 ity of 24 hr 00:00: [place] tablet 00 [facility] FREESTYLE 2020-0 Yes [facility] LINDY 14 1-23 ity of DAY SENSOR 00:00: [place] Kit 00 [facility] ADVAIR 2020-0 Yes [facility] DISKUS 1-23 ity of 250-50 00:00: [place] mcg/dose 00 [facility] inhalation [facility] disk traMADol 50 2020-0 Yes [facility] mg tablet 1-23 ity of 00:00: [place] 00 [facility] albuterol 2020-0 Yes [facility] 2.5 mg /3 1-23 ity of mL (0.083 00:00: [place] %) 00 [facility] nebulizer [facility] solution albuterol 2020-0 Yes [facility] 2.5 mg /3 1-23 ity of mL (0.083 00:00: [place] %) 00 [facility] nebulizer [facility] solution CONTOUR 2020-0 Yes [facility] NEXT TEST 1-23 ity of STRIPS 00:00: [place] strip 00 [facility] CONTOUR 2020-0 Yes [facility] NEXT TEST 1-23 ity of STRIPS 00:00: [place] strip 00 [facility] buPROPion 2020-0 Yes [facility] XL 150 mg 1-23 ity of 24 hr 00:00: [place] tablet 00 [facility] FREESTYLE 2019-0 Yes [facility] LINDY 14 1-23 ity of DAY SENSOR 00:00: [place] Kit 00 [facility] ADVAIR 2020-0 Yes [facility] DISKUS 1-23 ity of 250-50 00:00: [place] mcg/dose 00 [facility] inhalation [facility] disk traMADol 50 2019-0 Yes [facility] mg tablet 1-23 ity of 00:00: [place] 00 [facility] buPROPion 2020-0 Yes [facility] XL 150 mg 1-23 ity of 24 hr 00:00: [place] tablet 00 [facility] FREESTYLE 2020-0 Yes [facility] LINDY 14 1-23 ity of DAY SENSOR 00:00: [place] Kit 00 [facility] albuterol 2020-0 Yes [facility] 2.5 mg /3 1-23 ity of mL (0.083 00:00: [place] %) 00 [facility] nebulizer [facility] solution CONTOUR 2020-0 Yes [facility] NEXT TEST 1-23 ity of STRIPS 00:00: [place] strip 00 [facility] buPROPion 2020-0 Yes [facility] XL 150 mg 1-23 ity of 24 hr 00:00: [place] tablet 00 [facility] FREESTYLE 2020-0 Yes [facility] LINDY 14 1-23 ity of DAY SENSOR 00:00: [place] Kit 00 [facility] ADVAIR 2020-0 Yes [facility] DISKUS 1-23 ity of 250-50 00:00: [place] mcg/dose 00 [facility] inhalation [facility] disk ADVAIR 2020-0 Yes [facility] DISKUS 1-23 ity of 250-50 00:00: [place] mcg/dose 00 [facility] inhalation [facility] disk traMADol 50 2020-0 Yes [facility] mg tablet 1-23 ity of 00:00: [place] 00 [facility] albuterol 2020-0 Yes [facility] 2.5 mg /3 1-23 ity of mL (0.083 00:00: [place] %) 00 [facility] nebulizer [facility] solution CONTOUR 2020-0 Yes [facility] NEXT TEST 1-23 ity of STRIPS 00:00: [place] strip 00 [facility] traMADol 50 2020-0 Yes [facility] mg tablet 1-23 ity of 00:00: [place] 00 [facility] buPROPion 2020-0 Yes [facility] XL 150 mg 1-23 ity of 24 hr 00:00: [place] tablet 00 [facility] FREESTYLE 2020-0 Yes [facility] LINDY 14 1-23 ity of DAY SENSOR 00:00: [place] Kit 00 [facility] ADVAIR 2020-0 Yes [facility] DISKUS 1-23 ity of 250-50 00:00: [place] mcg/dose 00 [facility] inhalation [facility] disk traMADol 50 2020-0 Yes [facility] mg tablet -23 ity of 00:00: [place] 00 [facility] albuterol 2020-0 Yes [facility] 2.5 mg /3 -23 ity of mL (0.083 00:00: [place] %) 00 [facility] nebulizer [facility] solution CONTOUR 2019-0 Yes [facility] NEXT TEST 1-23 ity of STRIPS 00:00: [place] strip 00 [facility] buPROPion 2020-0 Yes [facility] XL 150 mg 1-23 ity of 24 hr 00:00: [place] tablet 00 [facility] FREESTYLE 2020-0 Yes [facility] LINDY 14 1-23 ity of DAY SENSOR 00:00: [place] Kit 00 [facility] ADVAIR 2020-0 Yes [facility] DISKUS 1-23 ity of 250-50 00:00: [place] mcg/dose 00 [facility] inhalation [facility] disk traMADol 50 2020-0 Yes [facility] mg tablet 1-23 ity of 00:00: [place] 00 [facility] albuterol 2020-0 Yes [facility] 2.5 mg /3 1-23 ity of mL (0.083 00:00: [place] %) 00 [facility] nebulizer [facility] solution CONTOUR 2020-0 Yes [facility] NEXT TEST 1-23 ity of STRIPS 00:00: [place] strip 00 [facility] buPROPion 2020-0 Yes [facility] XL 150 mg 1-23 ity of 24 hr 00:00: [place] tablet 00 [facility] FREESTYLE 2020-0 Yes [facility] LINDY 14 1-23 ity of DAY SENSOR 00:00: [place] Kit 00 [facility] ADVAIR 2020-0 Yes [facility] DISKUS 1-23 ity of 250-50 00:00: [place] mcg/dose 00 [facility] inhalation [facility] disk traMADol 50 2019-0 Yes [facility] mg tablet 1-23 ity of 00:00: [place] 00 [facility] albuterol 2020-0 Yes [facility] 2.5 mg /3 1-23 ity of mL (0.083 00:00: [place] %) 00 [facility] nebulizer [facility] solution CONTOUR 2019-0 Yes [facility] NEXT TEST 1-23 ity of STRIPS 00:00: [place] strip 00 [facility] buPROPion 2019-0 Yes [facility] XL 150 mg 1-23 ity of 24 hr 00:00: [place] tablet 00 [facility] FREESTYLE 2019-0 Yes [facility] LINDY 14 1-23 ity of DAY SENSOR 00:00: [place] Kit 00 [facility] ADVAIR 2019-0 Yes [facility] DISKUS 1-23 ity of 250-50 00:00: [place] mcg/dose 00 [facility] inhalation [facility] disk traMADol 50 2019-0 Yes [facility] mg tablet 1-23 ity of 00:00: [place] 00 [facility] albuterol 2019-0 Yes [facility] 2.5 mg /3 1-23 ity of mL (0.083 00:00: [place] %) 00 [facility] nebulizer [facility] solution CONTOUR 2020-0 Yes [facility] NEXT TEST 1-23 ity of STRIPS 00:00: [place] strip 00 [facility] buPROPion 2020-0 Yes [facility] XL 150 mg 1-23 ity of 24 hr 00:00: [place] tablet 00 [facility] FREESTYLE 2020-0 Yes [facility] LINDY 14 1-23 ity of DAY SENSOR 00:00: [place] Kit 00 [facility] ADVAIR 2020-0 Yes [facility] DISKUS 1-23 ity of 250-50 00:00: [place] mcg/dose 00 [facility] inhalation [facility] disk traMADol 50 2020-0 Yes [facility] mg tablet 1-23 ity of 00:00: [place] 00 [facility] albuterol 2020-0 Yes [facility] 2.5 mg /3 1-23 ity of mL (0.083 00:00: [place] %) 00 [facility] nebulizer [facility] solution CONTOUR 2020-0 Yes [facility] NEXT TEST 1-23 ity of STRIPS 00:00: [place] strip 00 [facility] buPROPion 2020-0 Yes [facility] XL 150 mg 1-23 ity of 24 hr 00:00: [place] tablet 00 [facility] FREESTYLE 2020-0 Yes [facility] LINDY 14 1-23 ity of DAY SENSOR 00:00: [place] Kit 00 [facility] ADVAIR 2020-0 Yes [facility] DISKUS 1-23 ity of 250-50 00:00: [place] mcg/dose 00 [facility] inhalation [facility] disk traMADol 50 2020-0 Yes [facility] mg tablet 1-23 ity of 00:00: [place] 00 [facility] albuterol 2020-0 Yes [facility] 2.5 mg /3 1-23 ity of mL (0.083 00:00: [place] %) 00 [facility] nebulizer [facility] solution CONTOUR 2019-0 Yes [facility] NEXT TEST 1-23 ity of STRIPS 00:00: [place] strip 00 [facility] buPROPion 2020-0 Yes [facility] XL 150 mg 1-23 ity of 24 hr 00:00: [place] tablet 00 [facility] FREESTYLE 2019-0 Yes [facility] LINDY 14 1-23 ity of DAY SENSOR 00:00: [place] Kit 00 [facility] ADVAIR 2020-0 Yes [facility] DISKUS 1-23 ity of 250-50 00:00: [place] mcg/dose 00 [facility] inhalation [facility] disk traMADol 50 2019-0 Yes [facility] mg tablet -23 ity of 00:00: [place] 00 [facility] albuterol 2020-0 Yes [facility] 2.5 mg /3 1-23 ity of mL (0.083 00:00: [place] %) 00 [facility] nebulizer [facility] solution CONTOUR 2020-0 Yes [facility] NEXT TEST 1-23 ity of STRIPS 00:00: [place] strip 00 [facility] buPROPion 2020-0 Yes [facility] XL 150 mg 1-23 ity of 24 hr 00:00: [place] tablet 00 [facility] FREESTYLE 2020-0 Yes [facility] LINDY 14 1-23 ity of DAY SENSOR 00:00: [place] Kit 00 [facility] ADVAIR 2020-0 Yes [facility] DISKUS 1-23 ity of 250-50 00:00: [place] mcg/dose 00 [facility] inhalation [facility] disk traMADol 50 2020-0 Yes [facility] mg tablet 1-23 ity of 00:00: [place] 00 [facility] albuterol 2020-0 Yes [facility] 2.5 mg /3 1-23 ity of mL (0.083 00:00: [place] %) 00 [facility] nebulizer [facility] solution CONTOUR 2020-0 Yes [facility] NEXT TEST 1-23 ity of STRIPS 00:00: [place] strip 00 [facility] buPROPion 2020-0 Yes [facility] XL 150 mg 1-23 ity of 24 hr 00:00: [place] tablet 00 [facility] FREESTYLE 2020-0 Yes [facility] LINDY 14 1-23 ity of DAY SENSOR 00:00: [place] Kit 00 [facility] ADVAIR 2019-0 Yes [facility] DISKUS 1-23 ity of 250-50 00:00: [place] mcg/dose 00 [facility] inhalation [facility] disk traMADol 50 2019-0 Yes [facility] mg tablet 1-23 ity of 00:00: [place] 00 [facility] albuterol 2020-0 Yes [facility] 2.5 mg /3 1-23 ity of mL (0.083 00:00: [place] %) 00 [facility] nebulizer [facility] solution CONTOUR 2019-0 Yes [facility] NEXT TEST 1-23 ity of STRIPS 00:00: [place] strip 00 [facility] buPROPion 2019-0 Yes [facility] XL 150 mg 1-23 ity of 24 hr 00:00: [place] tablet 00 [facility] FREESTYLE 2019-0 Yes [facility] LINDY 14 1-23 ity of DAY SENSOR 00:00: [place] Kit 00 [facility] ADVAIR 2020-0 Yes [facility] DISKUS 1-23 ity of 250-50 00:00: [place] mcg/dose 00 [facility] inhalation [facility] disk traMADol 50 2019-0 Yes [facility] mg tablet 1-23 ity of 00:00: [place] 00 [facility] albuterol 2020-0 Yes [facility] 2.5 mg /3 1-23 ity of mL (0.083 00:00: [place] %) 00 [facility] nebulizer [facility] solution CONTOUR 2020-0 Yes [facility] NEXT TEST 1-23 ity of STRIPS 00:00: [place] strip 00 [facility] buPROPion 2020-0 Yes [facility] XL 150 mg 1-23 ity of 24 hr 00:00: [place] tablet 00 [facility] FREESTYLE 2020-0 Yes [facility] LINDY 14 1-23 ity of DAY SENSOR 00:00: [place] Kit 00 [facility] ADVAIR 2020-0 Yes [facility] DISKUS 1-23 ity of 250-50 00:00: [place] mcg/dose 00 [facility] inhalation [facility] disk traMADol 50 2020-0 Yes [facility] mg tablet 1-23 ity of 00:00: [place] 00 [facility] albuterol 2020-0 Yes [facility] 2.5 mg /3 1-23 ity of mL (0.083 00:00: [place] %) 00 [facility] nebulizer [facility] solution CONTOUR 2020-0 Yes [facility] NEXT TEST 1-23 ity of STRIPS 00:00: [place] strip 00 [facility] buPROPion 2020-0 Yes [facility] XL 150 mg 1-23 ity of 24 hr 00:00: [place] tablet 00 [facility] FREESTYLE 2020-0 Yes [facility] LINDY 14 1-23 ity of DAY SENSOR 00:00: [place] Kit 00 [facility] ADVAIR 2019-0 Yes [facility] DISKUS 1-23 ity of 250-50 00:00: [place] mcg/dose 00 [facility] inhalation [facility] disk traMADol 50 2019-0 Yes [facility] mg tablet 1-23 ity of 00:00: [place] 00 [facility] albuterol 2020-0 Yes [facility] 2.5 mg /3 1-23 ity of mL (0.083 00:00: [place] %) 00 [facility] nebulizer [facility] solution CONTOUR 2019-0 Yes [facility] NEXT TEST 1-23 ity of STRIPS 00:00: [place] strip 00 [facility] buPROPion 2019-0 Yes [facility] XL 150 mg 1-23 ity of 24 hr 00:00: [place] tablet 00 [facility] FREESTYLE 2019-0 Yes [facility] LINDY 14 1-23 ity of DAY SENSOR 00:00: [place] Kit 00 [facility] ADVAIR 2020-0 Yes [facility] DISKUS 1-23 ity of 250-50 00:00: [place] mcg/dose 00 [facility] inhalation [facility] disk traMADol 50 2020-0 Yes [facility] mg tablet 1-23 ity of 00:00: [place] 00 [facility] albuterol 2020-0 Yes [facility] 2.5 mg /3 1-23 ity of mL (0.083 00:00: [place] %) 00 [facility] nebulizer [facility] solution CONTOUR 2020-0 Yes [facility] NEXT TEST 1-23 ity of STRIPS 00:00: [place] strip 00 [facility] buPROPion 2020-0 Yes [facility] XL 150 mg 1-23 ity of 24 hr 00:00: [place] tablet 00 [facility] FREESTYLE 2019-0 Yes [facility] LINDY 14 1-23 ity of DAY SENSOR 00:00: [place] Kit 00 [facility] ADVAIR 2020-0 Yes [facility] DISKUS 1-23 ity of 250-50 00:00: [place] mcg/dose 00 [facility] inhalation [facility] disk traMADol 50 2019-0 Yes [facility] mg tablet 1-23 ity of 00:00: [place] [facility] albuterol 2020-0 Yes [facility] 2.5 mg /3 1-23 ity of mL (0.083 00:00: [place] %) 00 [facility] nebulizer [facility] solution CONTOUR 2019-0 Yes [facility] NEXT TEST 1-23 ity of STRIPS 00:00: [place] strip 00 [facility] buPROPion 2019-0 Yes [facility] XL 150 mg 1-23 ity of 24 hr 00:00: [place] tablet 00 [facility] FREESTYLE 0 Yes [facility] LINDY 14 1-23 ity of DAY SENSOR 00:00: [place] Kit [facility] ADVAIR 0 Yes [facility] DISKUS 1-23 ity of 250-50 00:00: [place] mcg/dose 00 [facility] inhalation [facility] disk traMADol 50 2019-0 Yes [facility] mg tablet 1-23 ity of 00:00: [place] 00 [facility] albuterol 2019-0 Yes [facility] 2.5 mg /3 1-23 ity of mL (0.083 00:00: [place] %) 00 [facility] nebulizer [facility] solution CONTOUR 2019-0 Yes [facility] NEXT TEST 1-23 ity of STRIPS 00:00: [place] strip 00 [facility] buPROPion 2019-0 Yes [facility] XL 150 mg 1-23 ity of 24 hr 00:00: [place] tablet 00 [facility] FREESTYLE 2019-0 Yes [facility] LINDY 14 1-23 ity of DAY SENSOR 00:00: [place] Kit 00 [facility] ADVAIR 2019-0 Yes [facility] DISKUS 1-23 ity of 250-50 00:00: [place] mcg/dose 00 [facility] inhalation [facility] disk traMADol 50 2019-0 Yes [facility] mg tablet 1-23 ity of 00:00: [place] 00 [facility] albuterol 2019-0 Yes [facility] 2.5 mg /3 1-23 ity of mL (0.083 00:00: [place] %) 00 [facility] nebulizer [facility] solution CONTOUR 2019-0 Yes [facility] NEXT TEST 1-23 ity of STRIPS 00:00: [place] strip 00 [facility] buPROPion 2019-0 Yes [facility] XL 150 mg 1-23 ity of 24 hr 00:00: [place] tablet 00 [facility] FREESTYLE 2020-0 Yes [facility] LINDY 14 1-23 ity of DAY SENSOR 00:00: [place] Kit 00 [facility] ADVAIR 2020-0 Yes [facility] DISKUS 1-23 ity of 250-50 00:00: [place] mcg/dose 00 [facility] inhalation [facility] disk traMADol 50 2020-0 Yes [facility] mg tablet 1-23 ity of 00:00: [place] 00 [facility] albuterol 2020-0 Yes [facility] 2.5 mg /3 1-23 ity of mL (0.083 00:00: [place] %) 00 [facility] nebulizer [facility] solution CONTOUR 2020-0 Yes [facility] NEXT TEST 1-23 ity of STRIPS 00:00: [place] strip 00 [facility] buPROPion 2020-0 Yes [facility] XL 150 mg 1-23 ity of 24 hr 00:00: [place] tablet 00 [facility] FREESTYLE 2020-0 Yes [facility] LINDY 14 1-23 ity of DAY SENSOR 00:00: [place] Kit 00 [facility] ADVAIR 2020-0 Yes [facility] DISKUS 1-23 ity of 250-50 00:00: [place] mcg/dose 00 [facility] inhalation [facility] disk traMADol 50 2020-0 Yes [facility] mg tablet 1-23 ity of 00:00: [place] 00 [facility] albuterol 2020-0 Yes [facility] 2.5 mg /3 1-23 ity of mL (0.083 00:00: [place] %) 00 [facility] nebulizer [facility] solution CONTOUR 2019-0 Yes [facility] NEXT TEST 1-23 ity of STRIPS 00:00: [place] strip 00 [facility] buPROPion 2020-0 Yes [facility] XL 150 mg 1-23 ity of 24 hr 00:00: [place] tablet 00 [facility] FREESTYLE 2020-0 Yes [facility] LINDY 14 1-23 ity of DAY SENSOR 00:00: [place] Kit 00 [facility] ADVAIR 2020-0 Yes [facility] DISKUS 1-23 ity of 250-50 00:00: [place] mcg/dose 00 [facility] inhalation [facility] disk traMADol 50 2020-0 Yes [facility] mg tablet 1-23 ity of 00:00: [place] 00 [facility] albuterol 2020-0 Yes [facility] 2.5 mg /3 1-23 ity of mL (0.083 00:00: [place] %) 00 [facility] nebulizer [facility] solution CONTOUR 2019-0 Yes [facility] NEXT TEST 1-23 ity of STRIPS 00:00: [place] strip 00 [facility] buPROPion 2020-0 Yes [facility] XL 150 mg 1-23 ity of 24 hr 00:00: [place] tablet 00 [facility] FREESTYLE 2020-0 Yes [facility] LINDY 14 1-23 ity of DAY SENSOR 00:00: [place] Kit 00 [facility] ADVAIR 2020-0 Yes [facility] DISKUS 1-23 ity of 250-50 00:00: [place] mcg/dose 00 [facility] inhalation [facility] disk traMADol 50 2019-0 Yes [facility] mg tablet 1-23 ity of 00:00: [place] 00 [facility] albuterol 2020-0 Yes [facility] 2.5 mg /3 1-23 ity of mL (0.083 00:00: [place] %) 00 [facility] nebulizer [facility] solution CONTOUR 2020-0 Yes [facility] NEXT TEST 1-23 ity of STRIPS 00:00: [place] strip 00 [facility] buPROPion 2019-0 Yes [facility] XL 150 mg 1-23 ity of 24 hr 00:00: [place] tablet 00 [facility] FREESTYLE 2019-0 Yes [facility] LINDY 14 1-23 ity of DAY SENSOR 00:00: [place] Kit 00 [facility] ADVAIR 2019-0 Yes [facility] DISKUS 1-23 ity of 250-50 00:00: [place] mcg/dose 00 [facility] inhalation [facility] disk traMADol 50 2019-0 Yes [facility] mg tablet 1-23 ity of 00:00: [place] 00 [facility] albuterol 2019-0 Yes [facility] 2.5 mg /3 1-23 ity of mL (0.083 00:00: [place] %) 00 [facility] nebulizer [facility] solution CONTOUR 2020-0 Yes [facility] NEXT TEST 1-23 ity of STRIPS 00:00: [place] strip 00 [facility] buPROPion 2020-0 Yes [facility] XL 150 mg 1-23 ity of 24 hr 00:00: [place] tablet 00 [facility] FREESTYLE 2020-0 Yes [facility] LINDY 14 1-23 ity of DAY SENSOR 00:00: [place] Kit 00 [facility] ADVAIR 2020-0 Yes [facility] DISKUS 1-23 ity of 250-50 00:00: [place] mcg/dose 00 [facility] inhalation [facility] disk traMADol 50 2020-0 Yes [facility] mg tablet 1-23 ity of 00:00: [place] 00 [facility] albuterol 2020-0 Yes [facility] 2.5 mg /3 1-23 ity of mL (0.083 00:00: [place] %) 00 [facility] nebulizer [facility] solution CONTOUR 2020-0 Yes [facility] NEXT TEST 1-23 ity of STRIPS 00:00: [place] strip 00 [facility] buPROPion 2020-0 Yes [facility] XL 150 mg 1-23 ity of 24 hr 00:00: [place] tablet 00 [facility] FREESTYLE 2020-0 Yes [facility] LINDY 14 1-23 ity of DAY SENSOR 00:00: [place] Kit 00 [facility] ADVAIR 2019-0 Yes [facility] DISKUS 1-23 ity of 250-50 00:00: [place] mcg/dose 00 [facility] inhalation [facility] disk traMADol 50 2019-0 Yes [facility] mg tablet 1-23 ity of 00:00: [place] 00 [facility] albuterol 2020-0 Yes [facility] 2.5 mg /3 1-23 ity of mL (0.083 00:00: [place] %) 00 [facility] nebulizer [facility] solution CONTOUR 2019-0 Yes [facility] NEXT TEST 1-23 ity of STRIPS 00:00: [place] strip 00 [facility] albuterol 2019-0 Yes [facility] 2.5 mg /3 1-23 ity of mL (0.083 00:00: [place] %) 00 [facility] nebulizer [facility] solution CONTOUR 2019-0 Yes [facility] NEXT TEST 1-23 ity of STRIPS 00:00: [place] strip 00 [facility] buPROPion 2020-0 Yes [facility] XL 150 mg 1-23 ity of 24 hr 00:00: [place] tablet 00 [facility] buPROPion 2020-0 Yes [facility] XL 150 mg 1-23 ity of 24 hr 00:00: [place] tablet 00 [facility] FREESTYLE 2019-0 Yes [facility] LINDY 14 1-23 ity of DAY SENSOR 00:00: [place] Kit 00 [facility] ADVAIR 2019-0 Yes [facility] DISKUS 1-23 ity of 250-50 00:00: [place] mcg/dose 00 [facility] inhalation [facility] disk traMADol 50 2020-0 Yes [facility] mg tablet 1-23 ity of 00:00: [place] 00 [facility] FREESTYLE 2020-0 Yes [facility] LINDY 14 1-23 ity of DAY SENSOR 00:00: [place] Kit 00 [facility] ADVAIR 2019-0 Yes [facility] DISKUS 1-23 ity of 250-50 00:00: [place] mcg/dose 00 [facility] inhalation [facility] disk albuterol 2020-0 Yes [facility] 2.5 mg /3 1-23 ity of mL (0.083 00:00: [place] %) 00 [facility] nebulizer [facility] solution CONTOUR 2020-0 Yes [facility] NEXT TEST 1-23 ity of STRIPS 00:00: [place] strip 00 [facility] buPROPion 2020-0 Yes [facility] XL 150 mg 1-23 ity of 24 hr 00:00: [place] tablet 00 [facility] FREESTYLE 2020-0 Yes [facility] LINDY 14 1-23 ity of DAY SENSOR 00:00: [place] Kit 00 [facility] ADVAIR 2019-0 Yes [facility] DISKUS 1-23 ity of 250-50 00:00: [place] mcg/dose 00 [facility] inhalation [facility] disk traMADol 50 2019-0 Yes [facility] mg tablet 1-23 ity of 00:00: [place] 00 [facility] traMADol 50 2019-0 Yes [facility] mg tablet 1-23 ity of 00:00: [place] 00 [facility] albuterol 2019-0 Yes [facility] 2.5 mg /3 -23 ity of mL (0.083 00:00: [place] %) 00 [facility] nebulizer [facility] solution CONTOUR 2019-0 Yes [facility] NEXT TEST 1-23 ity of STRIPS 00:00: [place] strip 00 [facility] buPROPion 2019-0 Yes [facility] XL 150 mg 1-23 ity of 24 hr 00:00: [place] tablet 00 [facility] FREESTYLE 2019-0 Yes [facility] LINDY 14 1-23 ity of DAY SENSOR 00:00: [place] Kit 00 [facility] ADVAIR 2019-0 Yes [facility] DISKUS 1-23 ity of 250-50 00:00: [place] mcg/dose 00 [facility] inhalation [facility] disk traMADol 50 2019-0 Yes [facility] mg tablet 1-23 ity of 00:00: [place] 00 [facility] albuterol 2020-0 Yes [facility] 2.5 mg /3 1-23 ity of mL (0.083 00:00: [place] %) 00 [facility] nebulizer [facility] solution CONTOUR 2020-0 Yes [facility] NEXT TEST 1-23 ity of STRIPS 00:00: [place] strip 00 [facility] buPROPion 2020-0 Yes [facility] XL 150 mg 1-23 ity of 24 hr 00:00: [place] tablet 00 [facility] FREESTYLE 2020-0 Yes [facility] LINDY 14 1-23 ity of DAY SENSOR 00:00: [place] Kit 00 [facility] ADVAIR 2019-0 Yes [facility] DISKUS 1-23 ity of 250-50 00:00: [place] mcg/dose 00 [facility] inhalation [facility] disk traMADol 50 2020-0 Yes [facility] mg tablet 1-23 ity of 00:00: [place] 00 [facility] albuterol 2020-0 Yes [facility] 2.5 mg /3 1-23 ity of mL (0.083 00:00: [place] %) 00 [facility] nebulizer [facility] solution CONTOUR 2020-0 Yes [facility] NEXT TEST 1-23 ity of STRIPS 00:00: [place] strip 00 [facility] buPROPion 2020-0 Yes [facility] XL 150 mg 1-23 ity of 24 hr 00:00: [place] tablet 00 [facility] FREESTYLE 2020-0 Yes [facility] LINDY 14 1-23 ity of DAY SENSOR 00:00: [place] Kit 00 [facility] ADVAIR 2019-0 Yes [facility] DISKUS 1-23 ity of 250-50 00:00: [place] mcg/dose 00 [facility] inhalation [facility] disk traMADol 50 2019-0 Yes [facility] mg tablet -23 ity of 00:00: [place] 00 [facility] albuterol 2020-0 Yes [facility] 2.5 mg /3 -23 ity of mL (0.083 00:00: [place] %) 00 [facility] nebulizer [facility] solution CONTOUR 2019-0 Yes [facility] NEXT TEST 1-23 ity of STRIPS 00:00: [place] strip 00 [facility] buPROPion 2020-0 Yes [facility] XL 150 mg 1-23 ity of 24 hr 00:00: [place] tablet 00 [facility] FREESTYLE 2019-0 Yes [facility] LINDY 14 1-23 ity of DAY SENSOR 00:00: [place] Kit 00 [facility] ADVAIR 2020-0 Yes [facility] DISKUS 1-23 ity of 250-50 00:00: [place] mcg/dose 00 [facility] inhalation [facility] disk traMADol 50 2020-0 Yes [facility] mg tablet 1-23 ity of 00:00: [place] 00 [facility] albuterol 2020-0 Yes [facility] 2.5 mg /3 1-23 ity of mL (0.083 00:00: [place] %) 00 [facility] nebulizer [facility] solution CONTOUR 2020-0 Yes [facility] NEXT TEST 1-23 ity of STRIPS 00:00: [place] strip 00 [facility] buPROPion 2020-0 Yes [facility] XL 150 mg 1-23 ity of 24 hr 00:00: [place] tablet 00 [facility] FREESTYLE 2020-0 Yes [facility] LINDY 14 1-23 ity of DAY SENSOR 00:00: [place] Kit 00 [facility] ADVAIR 2020-0 Yes [facility] DISKUS 1-23 ity of 250-50 00:00: [place] mcg/dose 00 [facility] inhalation [facility] disk traMADol 50 2020-0 Yes [facility] mg tablet 1-23 ity of 00:00: [place] 00 [facility] albuterol 2020-0 Yes [facility] 2.5 mg /3 1-23 ity of mL (0.083 00:00: [place] %) 00 [facility] nebulizer [facility] solution CONTOUR 2019-0 Yes [facility] NEXT TEST 1-23 ity of STRIPS 00:00: [place] strip 00 [facility] buPROPion 2019-0 Yes [facility] XL 150 mg 1-23 ity of 24 hr 00:00: [place] tablet 00 [facility] FREESTYLE 2019-0 Yes [facility] LINDY 14 1-23 ity of DAY SENSOR 00:00: [place] Kit 00 [facility] ADVAIR 2019-0 Yes [facility] DISKUS 1-23 ity of 250-50 00:00: [place] mcg/dose 00 [facility] inhalation [facility] disk traMADol 50 2019-0 Yes [facility] mg tablet 1-23 ity of 00:00: [place] 00 [facility] albuterol 2019-0 Yes [facility] 2.5 mg /3 1-23 ity of mL (0.083 00:00: [place] %) 00 [facility] nebulizer [facility] solution CONTOUR 2019-0 Yes [facility] NEXT TEST 1-23 ity of STRIPS 00:00: [place] strip 00 [facility] buPROPion 2019-0 Yes [facility] XL 150 mg 1-23 ity of 24 hr 00:00: [place] tablet 00 [facility] FREESTYLE 2019-0 Yes [facility] LINDY 14 1-23 ity of DAY SENSOR 00:00: [place] Kit 00 [facility] ADVAIR 2019-0 Yes [facility] DISKUS 1-23 ity of 250-50 00:00: [place] mcg/dose 00 [facility] inhalation [facility] disk traMADol 50 2020-0 Yes [facility] mg tablet 1-23 ity of 00:00: [place] 00 [facility] albuterol 2019-0 Yes [facility] 2.5 mg /3 1-23 ity of mL (0.083 00:00: [place] %) 00 [facility] nebulizer [facility] solution CONTOUR 2020-0 Yes [facility] NEXT TEST 1-23 ity of STRIPS 00:00: [place] strip 00 [facility] buPROPion 2019-0 Yes [facility] XL 150 mg 1-23 ity of 24 hr 00:00: [place] tablet 00 [facility] FREESTYLE 2020-0 Yes [facility] LINDY 14 1-23 ity of DAY SENSOR 00:00: [place] Kit 00 [facility] ADVAIR 2020-0 Yes [facility] DISKUS 1-23 ity of 250-50 00:00: [place] mcg/dose 00 [facility] inhalation [facility] disk traMADol 50 2020-0 Yes [facility] mg tablet 1-23 ity of 00:00: [place] 00 [facility] albuterol 2020-0 Yes [facility] 2.5 mg /3 1-23 ity of mL (0.083 00:00: [place] %) 00 [facility] nebulizer [facility] solution CONTOUR 2020-0 Yes [facility] NEXT TEST 1-23 ity of STRIPS 00:00: [place] strip 00 [facility] buPROPion 2020-0 Yes [facility] XL 150 mg 1-23 ity of 24 hr 00:00: [place] tablet 00 [facility] FREESTYLE 2020-0 Yes [facility] LINDY 14 1-23 ity of DAY SENSOR 00:00: [place] Kit 00 [facility] ADVAIR 2020-0 Yes [facility] DISKUS 1-23 ity of 250-50 00:00: [place] mcg/dose 00 [facility] inhalation [facility] disk traMADol 50 2019-0 Yes [facility] mg tablet 1-23 ity of 00:00: [place] 00 [facility] ENBREL MINI 2020-0 Yes [facility] 50 mg/mL (1 1-21 ity of mL) Crtg 00:00: [place] 00 [facility] ENBREL MINI 2020-0 Yes [facility] 50 mg/mL (1 1-21 ity of mL) Crtg 00:00: [place] 00 [facility] ENBREL MINI 2020-0 Yes [facility] 50 mg/mL (1 1-21 ity of mL) Crtg 00:00: [place] 00 [facility] ENBREL MINI 2020-0 Yes [facility] 50 mg/mL (1 1-21 ity of mL) Crtg 00:00: [place] 00 [facility] ENBREL MINI 2020-0 Yes [facility] 50 mg/mL (1 1-21 ity of mL) Crtg 00:00: [place] 00 [facility] ENBREL MINI 2020-0 Yes Univer s 50 mg/mL (1 1-21 ity of mL) Crtg 00:00: [place] 00 [facility] ENBREL MINI 2020-0 Yes Univer s 50 mg/mL (1 1-21 ity of mL) Crtg 00:00: [place] 00 [facility] ENBREL MINI 2020-0 Yes Univer s 50 mg/mL (1 1-21 ity of mL) Crtg 00:00: [facility] ENBREL MINI 2020-0 Yes Univer s 50 mg/mL (1 1-21 ity of mL) Crtg 00:00: [facility] ENBREL MINI 2020-0 Yes Univer s 50 mg/mL (1 1-21 ity of mL) Crtg 00:00: [facility] ENBREL MINI 2020-0 Yes Univer s 50 mg/mL (1 1-21 ity of mL) Crtg 00:00: [facility] ENBREL MINI 2020-0 Yes Univer s 50 mg/mL (1 1-21 ity of mL) Crtg 00:00: [facility] ENBREL MINI 2020-0 Yes Univer s 50 mg/mL (1 1-21 ity of mL) Crtg 00:00: [facility] ENBREL MINI 2020-0 Yes Univer s 50 mg/mL (1 1-21 ity of mL) Crtg 00:00: [facility] ENBREL MINI 2020-0 Yes Univer s 50 mg/mL (1 1-21 ity of mL) Crtg 00:00: [facility] ENBREL MINI 2020-0 Yes Univer s 50 mg/mL (1 1-21 ity of mL) Crtg 00:00: [facility] ENBREL MINI 2020-0 Yes Univer s 50 mg/mL (1 1-21 ity of mL) Crtg 00:00: [facility] ENBREL MINI 2020-0 Yes Univer s 50 mg/mL (1 1-21 ity of mL) Crtg 00:00: [facility] ENBREL MINI 2020-0 Yes Univer s 50 mg/mL (1 1-21 ity of mL) Crtg 00:00: [facility] ENBREL MINI 2020-0 Yes Univer s 50 mg/mL (1 1-21 ity of mL) Crtg 00:00: [facility] ENBREL MINI 2020-0 Yes Univer s 50 mg/mL (1 1-21 ity of mL) Crtg 00:00: [facility] ENBREL MINI 2020-0 Yes Univer s 50 mg/mL (1 1-21 ity of mL) Crtg 00:00: [facility] ENBREL MINI 2020-0 Yes Univer s 50 mg/mL (1 1-21 ity of mL) Crtg 00:00: 00 [facility] ENBREL MINI 2020-0 Yes Univer s 50 mg/mL (1 1-21 ity of mL) Crtg 00:00: [facility] ENBREL MINI 2020-0 Yes Univer s 50 mg/mL (1 1-21 ity of mL) Crtg 00:00: [facility] ENBREL MINI 2020-0 Yes Univer s 50 mg/mL (1 1-21 ity of mL) Crtg 00:00: [facility] ENBREL MINI 2020-0 Yes Univer s 50 mg/mL (1 1-21 ity of mL) Crtg 00:00: [facility] ENBREL MINI 2020-0 Yes Univer s 50 mg/mL (1 1-21 ity of mL) Crtg 00:00: [facility] ENBREL MINI 2020-0 Yes Univer s 50 mg/mL (1 1-21 ity of mL) Crtg 00:00: [facility] ENBREL MINI 2020-0 Yes Univer s 50 mg/mL (1 1-21 ity of mL) Crtg 00:00: [facility] ENBREL MINI 2020-0 Yes Univer s 50 mg/mL (1 1-21 ity of mL) Crtg 00:00: [facility] ENBREL MINI 2020-0 Yes Univer s 50 mg/mL (1 1-21 ity of mL) Crtg 00:00: [facility] ENBREL MINI 2020-0 Yes Univer s 50 mg/mL (1 1-21 ity of mL) Crtg 00:00: [facility] ENBREL MINI 2020-0 Yes Univer s 50 mg/mL (1 1-21 ity of mL) Crtg 00:00: [facility] ENBREL MINI 2020-0 Yes Univer s 50 mg/mL (1 1-21 ity of mL) Crtg 00:00: [facility] ENBREL MINI 2020-0 Yes Univer s 50 mg/mL (1 1-21 ity of mL) Crtg 00:00: [facility] ENBREL MINI 2020-0 Yes Univer s 50 mg/mL (1 1-21 ity of mL) Crtg 00:00: [facility] ENBREL MINI 2020-0 Yes Univer s 50 mg/mL (1 1-21 ity of mL) Crtg 00:00: [facility] ENBREL MINI 2020-0 Yes Univer s 50 mg/mL (1 1-21 ity of mL) Crtg 00:00: [facility] ENBREL MINI 2020-0 Yes Univer s 50 mg/mL (1 1-21 ity of mL) Crtg 00:00: [facility] ENBREL MINI 2020-0 Yes Univer s 50 mg/mL (1 1-21 ity of mL) Crtg 00:00: [facility] ENBREL MINI 2020-0 Yes Univer s 50 mg/mL (1 1-21 ity of mL) Crtg 00:00: [facility] ENBREL MINI 2020-0 Yes Univer s 50 mg/mL (1 1-21 ity of mL) Crtg 00:00: [facility] ENBREL MINI 2020-0 Yes Univer s 50 mg/mL (1 1-21 ity of mL) Crtg 00:00: [facility] ENBREL MINI 2020-0 Yes Univer s 50 mg/mL (1 1-21 ity of mL) Crtg 00:00: [facility] ENBREL MINI 2020-0 Yes Univer s 50 mg/mL (1 1-21 ity of mL) Crtg 00:00: [facility] ENBREL MINI 2020-0 Yes Univer s 50 mg/mL (1 1-21 ity of mL) Crtg 00:00: [facility] ENBREL MINI 2020-0 Yes Univer s 50 mg/mL (1 1-21 ity of mL) Crtg 00:00: [facility] ENBREL MINI 2020-0 Yes Univer s 50 mg/mL (1 1-21 ity of mL) Crtg 00:00: [facility] ENBREL MINI 2020-0 Yes Un[facility] s 50 mg/mL (1 1-21 ity of mL) Crtg 00:00: 00 [facility] ENBREL MINI 2020-0 Yes Univer s 50 mg/mL (1 1-21 ity of mL) Crtg 00:00: 00 [facility] ondansetron 2020-0 Yes TAKE 1 [facility] 4 mg tablet 1-16 TABLET BY ity of 00:00: MOUTH EVERY 8 Medical HOURS Branch NEEDED ondansetron 2020-0 Yes TAKE 1 [facility] 4 mg tablet 1-16 TABLET BY ity of 00:00: MOUTH EVERY 8 Medical HOURS Branch NEEDED ondansetron 2020-0 Yes TAKE 1 [facility] 4 mg tablet 1-16 TABLET BY ity of 00:00: MOUTH EVERY 8 Medical HOURS [facility] NEEDED ondansetron 2020-0 Yes TAKE 1 [facility] 4 mg tablet 1-16 TABLET BY ity of 00:00: MOUTH EVERY 8 [facility] HOURS [facility] NEEDED ondansetron 2020-0 Yes TAKE 1 [facility] 4 mg tablet 1-16 TABLET BY ity of 00:00: MOUTH EVERY 8 [facility] HOURS [facility] NEEDED ondansetron 2020-0 Yes TAKE 1 [facility] 4 mg tablet 1-16 TABLET BY ity of 00:00: MOUTH EVERY 8 Medical HOURS [facility] NEEDED ondansetron 2020-0 Yes TAKE 1 [facility] 4 mg tablet 1-16 TABLET BY ity of 00:00: MOUTH EVERY 8 [facility] HOURS [facility] NEEDED ondansetron 2020-0 Yes TAKE 1 [facility] 4 mg tablet 1-16 TABLET BY ity of 00:00: MOUTH EVERY 8 [facility] HOURS [facility] NEEDED ondansetron 2020-0 Yes TAKE 1 [facility] 4 mg tablet 1-16 TABLET BY ity of 00:00: MOUTH 00 EVERY 8 [facility] HOURS [facility] NEEDED ondansetron 2020-0 Yes TAKE 1 [facility] 4 mg tablet 1-16 TABLET BY ity of 00:00: MOUTH EVERY 8 [facility] HOURS [facility] NEEDED ondansetron 2020-0 Yes TAKE 1 [facility] 4 mg tablet 1-16 TABLET BY ity of 00:00: MOUTH 00 EVERY 8 [facility] HOURS [facility] NEEDED ondansetron 2020-0 Yes TAKE 1 [facility] 4 mg tablet 1-16 TABLET BY ity of 00:00: MOUTH 00 EVERY 8 [facility] HOURS [facility] NEEDED ondansetron 2020-0 Yes TAKE 1 [facility] 4 mg tablet 1-16 TABLET BY ity of 00:00: MOUTH 00 EVERY 8 [facility] HOURS [facility] NEEDED ondansetron 2020-0 Yes TAKE 1 [facility] 4 mg tablet 1-16 TABLET BY ity of 00:00: MOUTH 00 EVERY 8 [facility] HOURS [facility] NEEDED ondansetron 2020-0 Yes TAKE 1 [facility] 4 mg tablet 1-16 TABLET BY ity of 00:00: MOUTH 00 EVERY 8 [facility] HOU[facility] NEEDED ondansetron 2020-0 Yes TAKE 1 [facility] 4 mg tablet 1-16 TABLET BY ity of 00:00: MOUTH 00 EVERY 8 [facility] HOU[facility] NEEDED ondansetron 2020-0 Yes TAKE 1 [facility] 4 mg tablet 1-16 TABLET BY ity of 00:00: MOUTH 00 EVERY 8 [facility] HOU[facility] NEEDED ondansetron 2020-0 Yes TAKE 1 [facility] 4 mg tablet 1-16 TABLET BY ity of 00:00: MOUTH 00 EVERY 8 [facility] HOU[facility] NEEDED ondansetron 2020-0 Yes TAKE 1 [facility] 4 mg tablet 1-16 TABLET BY ity of 00:00: MOUTH 00 EVERY 8 [facility] HOU[facility] NEEDED ondansetron 2020-0 Yes TAKE 1 [facility] 4 mg tablet 1-16 TABLET BY ity of 00:00: MOUTH 00 EVERY 8 [facility] HOU[facility] NEEDED ondansetron 2020-0 Yes TAKE 1 [facility] 4 mg tablet 1-16 TABLET BY ity of 00:00: MOUTH 00 EVERY 8 [facility] HOU[facility] NEEDED ondansetron 2020-0 Yes TAKE 1 [facility] 4 mg tablet 1-16 TABLET BY ity of 00:00: MOUTH EVERY 8 [facility] HOU[facility] NEEDED ondansetron 2020-0 Yes TAKE 1 [facility] 4 mg tablet 1-16 TABLET BY ity of 00:00: MOUTH 00 EVERY 8 [facility] HOU[facility] NEEDED ondansetron 2020-0 Yes TAKE 1 [facility] 4 mg tablet 1-16 TABLET BY ity of 00:00: MOUTH 00 EVERY 8 [facility] HOU[facility] NEEDED ondansetron 2020-0 Yes TAKE 1 [facility] 4 mg tablet 1-16 TABLET BY ity of 00:00: MOUTH 00 EVERY 8 [facility] HOURS [facility] NEEDED ondansetron 2020-0 Yes TAKE 1 [facility] 4 mg tablet 1-16 TABLET BY ity of 00:00: MOUTH 00 EVERY 8 [facility] HOURS [facility] NEEDED ondansetron 2020-0 Yes TAKE 1 [facility] 4 mg tablet 1-16 TABLET BY ity of 00:00: MOUTH 00 EVERY 8 [facility] HOURS [facility] NEEDED ondansetron 2020-0 Yes TAKE 1 [facility] 4 mg tablet 1-16 TABLET BY ity of 00:00: MOUTH 00 EVERY 8 [facility] HOU[facility] NEEDED ondansetron 2020-0 Yes TAKE 1 [facility] 4 mg tablet 1-16 TABLET BY ity of 00:00: MOUTH EVERY 8 [facility] HOURS [facility] NEEDED ondansetron 2020-0 Yes TAKE 1 [facility] 4 mg tablet 1-16 TABLET BY ity of 00:00: MOUTH EVERY 8 [facility] HOU[facility] NEEDED ondansetron 2020-0 Yes TAKE 1 [facility] 4 mg tablet 1-16 TABLET BY ity of 00:00: MOUTH EVERY 8 [facility] HOU[facility] NEEDED ondansetron 2020-0 Yes TAKE 1 [facility] 4 mg tablet 1-16 TABLET BY ity of 00:00: MOUTH EVERY 8 [facility] HOU[facility] NEEDED ondansetron 2020-0 Yes TAKE 1 [facility] 4 mg tablet 1-16 TABLET BY ity of 00:00: MOUTH EVERY 8 [facility] HOU[facility] NEEDED ondansetron 2020-0 Yes TAKE 1 [facility] 4 mg tablet 1-16 TABLET BY ity of 00:00: MOUTH EVERY 8 [facility] HOU[facility] NEEDED ondansetron 2020-0 Yes TAKE 1 [facility] 4 mg tablet 1-16 TABLET BY ity of 00:00: MOUTH EVERY 8 [facility] HOU[facility] NEEDED ondansetron 2020-0 Yes TAKE 1 [facility] 4 mg tablet 1-16 TABLET BY ity of 00:00: MOUTH 00 EVERY 8 [facility] HOU[facility] NEEDED ondansetron 2020-0 Yes TAKE 1 [facility] 4 mg tablet 1-16 TABLET BY ity of 00:00: MOUTH 00 EVERY 8 [facility] HOU[facility] NEEDED ondansetron 2020-0 Yes TAKE 1 [facility] 4 mg tablet 1-16 TABLET BY ity of 00:00: MOUTH 00 EVERY 8 [facility] HOU[facility] NEEDED ondansetron 2020-0 Yes TAKE 1 [facility] 4 mg tablet 1-16 TABLET BY ity of 00:00: MOUTH 00 EVERY 8 [facility] HOU[facility] NEEDED ondansetron 2020-0 Yes TAKE 1 [facility] 4 mg tablet 1-16 TABLET BY ity of 00:00: MOUTH [place] 00 EVERY 8 Medical HOURS Branch NEEDED ondansetron 2020-0 Yes TAKE 1 [facility] 4 mg tablet 1-16 TABLET BY ity of 00:00: MOUTH [place] 00 EVERY 8 Medical HOURS Branch NEEDED ondansetron 2020-0 Yes TAKE 1 [facility] 4 mg tablet 1-16 TABLET BY ity of 00:00: MOUTH [place] 00 EVERY 8 Medical HOURS Branch NEEDED ondansetron 2020-0 Yes TAKE 1 [facility] 4 mg tablet 1-16 TABLET BY ity of 00:00: MOUTH [place] 00 EVERY 8 Medical HOURS Branch NEEDED ondansetron 2020-0 Yes TAKE 1 [facility] 4 mg tablet 1-16 TABLET BY ity of 00:00: MOUTH [place] 00 EVERY 8 Medical HOURS Branch NEEDED ondansetron 2020-0 Yes TAKE 1 [facility] 4 mg tablet 1-16 TABLET BY ity of 00:00: MOUTH [place] 00 EVERY 8 Medical HOURS Branch NEEDED ondansetron 2020-0 Yes TAKE 1 [facility] 4 mg tablet 1-16 TABLET BY ity of 00:00: MOUTH [place] 00 EVERY 8 Medical HOURS Branch NEEDED ondansetron 2020-0 Yes TAKE 1 [facility] 4 mg tablet 1-16 TABLET BY ity of 00:00: MOUTH [place] 00 EVERY 8 Medical HOURS Branch NEEDED ondansetron 2020-0 Yes TAKE 1 [facility] 4 mg tablet 1-16 TABLET BY ity of 00:00: MOUTH [place] 00 EVERY 8 Medical HOURS Branch NEEDED ondansetron 2020-0 Yes TAKE 1 [facility] 4 mg tablet 1-16 TABLET BY ity of 00:00: MOUTH [place] 00 EVERY 8 Medical HOURS Branch NEEDED ondansetron 2020-0 Yes TAKE 1 [facility] 4 mg tablet 1-16 TABLET BY ity of 00:00: MOUTH [place] 00 EVERY 8 Medical HOURS Branch NEEDED ondansetron 2020-0 Yes TAKE 1 [facility] 4 mg tablet 1-16 TABLET BY ity of 00:00: MOUTH [place] 00 EVERY 8 Medical HOURS Branch NEEDED Alendronate 2020-0 Yes Nilanjana not M emoria Sodium 1-07 Tracie defined l 03:45: J[place] 50 Alendronate 2020-0 Yes Nilanjana not M emoria Sodium 1-07 Tracie defined l 03:45: [place] 50 Alendronate 2020-0 Yes Nilanjana not M emoria Sodium 1-07 Tracie defined l 03:45: 50 Alendronate 2020-0 Yes Nilanjana not M emoria Sodium 1-07 Tracie defined l 03:45: 50 Alendronate 2020-0 Yes Nilanjana not M emoria Sodium 1-07 Tracie defined l 03:45: 50 Alendronate 2020-0 Yes Nilanjana not M emoria Sodium 1-07 Tracie defined l 03:45: 50 Alendronate 2020-0 Yes Nilanjana not M emoria Sodium 1-07 Tracie defined l 03:45: 50 Alendronate 2020-0 Yes Nilanjana not M emoria Sodium 1-07 Tracie defined l 03:45: 50 Alendronate 2020-0 Yes Nilanjana not M emoria Sodium 1-07 Tracie defined l 03:45: 50 Alendronate 2020-0 Yes Nilanjana not M emoria Sodium 1-07 Tracie defined l 03:45: 50 [facility] 2018-04 Yes Univers U-100 1-27 ity of INSULIN 100 00:00: [place] unit/mL [facility] solution [facility] 2018- Yes Univers U-100 1-27 ity of INSULIN 100 00:00: [place] unit/mL [facility] solution [facility] 2018- Yes Univers U-100 1-27 ity of INSULIN 100 00:00: [place] unit/mL [facility] solution [facility] 2019- Yes Univers U-100 1-27 ity of INSULIN 100 00:00: [place] unit/mL [facility] solution [facility] 2019- Yes Univers U-100 1-27 ity of INSULIN 100 00:00: [place] unit/mL 00 [facility] solution [facility] 2019- Yes Univers U-100 1-27 ity of INSULIN 100 00:00: [place] unit/mL [facility] solution [facility] 2018- Yes Univers U-100 1-27 ity of INSULIN 100 00:00: [place] unit/mL [facility] solution [facility] 2018- Yes Univers U-100 1-27 ity of INSULIN 100 00:00: [place] unit/mL [facility] solution [facility] 2018- Yes Univers U-100 1-27 ity of INSULIN 100 00:00: [place] unit/mL 00 [facility]-100 1-27 ity of INSULIN 100 00:00: [place] unit/mL 00 [facility]100 1-27 ity of INSULIN 100 00:00[facility] [place] [facility] ity of INSULIN 100 00:00: [place] unit/mL 00 [facility] HUMALOG 2019-1 Yes Univers U-100 1-27 ity of INSULIN 100 00:00: [place] unit/mL 00 [facility] U-100 1-27 ity of INSULIN 100 00:00: [place] unit/mL 00 [facility] U-100 1-27 ity of INSULIN 100 00:00: [place] [facility] 1-27 ity of INSULIN 100 00:00: [place] [facility] U-100 1-27 ity of INSULIN 100 00:00: [place] unit[facility] U-100 1-27 ity of INSULIN 100 00:00: [place] [facility] U-100 1-27 ity of INSULIN 100 00:00: [place] [facility] U-100 1-27 ity of INSULIN 100 00:00: [place] [facility] U-100 1-27 ity of INSULIN 100 00:00: [place] unit/mL 00 [facility] U-100 1-27 ity of INSULIN 100 00:00: [place] unit/mL 00 [facility] Univers U-100 1-27 ity of INSULIN 100 00:00: [place] unit/mL 00 [facility] U-100 1-27 ity of INSULIN 100 00:00: [place] [facility]-100 1-27 ity of INSULIN 100 00:00: [place] [facility] U-100 1-27 ity of INSULIN 100 00:00: [place] unit/mL 00 [facility] U-100 1-27 ity of INSULIN 100 00:00: [place] unit/mL 00 [facility] U-100 1-27 ity of INSULIN 100 00:00: [place] unit/mL 00 [facility] Univers U-100 1-27 ity of INSULIN 100 00:00: [place] unit/mL 00 [facility] U-100 1-27 ity of INSULIN 100 00:00: [place] unit/mL 00 [facility] Univers U-100 1-27 ity of INSULIN 100 00:00: [place] unit/mL 00 [facility] Univers U-100 1-27 ity of INSULIN 100 00:00: [place] unit/mL 00 [facility] Univers U-100 1-27 ity of INSULIN 100 00:00: [place] unit/mL 00 [facility] Univers U-100 1-27 ity of INSULIN 100 00:00: [place] unit/mL 00 [facility] Univers U-100 1-27 ity of INSULIN 100 00:00: [place] unit/mL 00 [facility] Univers U-100 1-27 ity of INSULIN 100 00:00: [place] unit/mL 00 [facility] Univers U-100 1-27 ity of INSULIN 100 00:00: [place] unit/mL 00 [facility] Univers U-100 1-27 ity of INSULIN 100 00:00: [place] unit/mL 00 [facility] Univers U-100 1-27 ity of INSULIN 100 00:00: [place] unit/mL 00 [facility] Univers U-100 1-27 ity of INSULIN 100 00:00: [place] unit/mL 00 [facility] Univers U-100 1-27 ity of INSULIN 100 00:00: [place] unit/mL 00 [facility] Univers U-100 1-27 ity of INSULIN 100 00:00: [place] unit/mL 00 [facility] Yes Univers U-100 1-27 ity of INSULIN 100 00:00: [place] unit/mL 00 [facility] solution Branch HUMALOG 2018- Yes Univers U-100 1-27 ity of INSULIN 100 00:00: [place] unit/mL 00 [facility] solution Branch HUMALOG 2018- Yes Univers U-100 1-27 ity of INSULIN 100 00:00: [place] unit/mL 00 [facility] solution Branch HUMALOG 2018- Yes Univers U-100 1-27 ity of INSULIN 100 00:00: [place] unit/mL 00 [facility] solution Branch HUMALOG 2018- Yes Univers U-100 1-27 ity of INSULIN 100 00:00: [place] unit/mL 00 [facility]-27 ity of INSULIN 100 00:00: [place] unit/mL 00 [facility] 1-27 ity of INSULIN 100 00:00: [place] unit/mL 00 [facility]-100 1-27 ity of INSULIN 100 00:00: [place] unit/mL 00 [facility] solution Branch HUMALOG 2018- Yes Univers U-100 1-27 ity of INSULIN 100 00:00: [place] unit/mL 00 [facility] meloxicam 20190 Yes [id number] 15mg Take 1 Un davina 15 mg 9-30 tablet by ity of tablet 00:00: mouth [place] 00 daily. [facility] meloxicam 0 Yes [id number] 15mg Take 1 Un [facility] 15 mg 9-30 tablet by ity of tablet 00:00: mouth [place] 00 daily. [facility] meloxicam 0 Yes [id number] 15mg Take 1 Un [facility] 15 mg 9-30 tablet by ity of tablet 00:00: mouth [place] 00 daily. [facility] meloxicam 2018-0 2020- No [id number] 15mg Take 1 U nivers 15 mg 9-30 02-26 tablet by ity of tablet 00:00: 00:00 mouth [place] 00 :00 daily. [facility] meloxicam 2018-0 2020- No [id number] 15mg Take 1 U nivers 15 mg 9-30 -26 tablet by ity of tablet 00:00: 00:00 mouth [place] 00 :00 daily. [facility] Enbrel 2019-0 Yes Nilanjana inject Kishan hoang 9-27 Tracie 50mg (1ml) l 00:00: subcutaneo [place] 00 usly every week generic: etanercept Enbrel 2019-0 Yes Nilanjana inject Kishan hoang 9-27 Tracie 50mg (1ml) l 00:00: subcutaneo [place] 00 usly every week generic: etanercept Enbrel 2019-0 Yes Nilanjana inject Kishan hoang 9-27 Tracie 50mg (1ml) l 00:00: subcutaneo [place] 00 usly every week generic: etanercept Enbrel 2019-0 Yes Nilanjana inject Kishan hoang 9-27 Tracie 50mg (1ml) l 00:00: subcutaneo [place] 00 usly every week generic: etanercept Enbrel 2019-0 Yes Nilanjana inject Kishan hoang 9-27 Tracie 50mg (1ml) l 00:00: subcutaneo [place] 00 usly every week generic: etanercept Enbrel 2019-0 Yes Nilanjana inject Kishan hoang 9-27 Tracie 50mg (1ml) l 00:00: subcutaneo [place] 00 usly every week generic: etanercept Enbrel 2019-0 Yes Nilanjana inject Kishan hoang 9-27 Tracie 50mg (1ml) l 00:00: subcutaneo [place] 00 usly every week generic: etanercept Enbrel 2019-0 Yes Nilanjana inject Kishan hoang 9-27 Tracie 50mg (1ml) l 00:00: subcutaneo [place] 00 usly every week generic: etanercept Enbrel 2019-0 Yes Nilanjana inject Kishan hoang 9-27 Tracie 50mg (1ml) l 00:00: subcutaneo [place] 00 usly every week generic: etanercept Enbrel 2019-0 Yes Nilanjana inject Kishan hoang 9-27 Tracie 50mg (1ml) l 00:00: subcutaneo [place] 00 usly every week generic: etanercept Enbrel Mini 2019-0 Yes Nilanjana 1 ml M emoria 8-29 Tracie l 00:00: [place] 00 Enbrel Mini 2019-0 Yes Nilanjana 1 ml M emoria 8-29 Tracie l 00:00: [place] [facility] 0 Yes Nilanjana 1 ml M emoria 8-29 Traice l 00:00: [facility] Yes Nilanjana 1 ml M emoria 8-29 Tracie l 00:00: [facility] Yes Nilanjana 1 ml M emoria 8-29 Tracie l 00:00: [facility] 0 Yes Nilanjana 1 ml M emoria 8-29 Tracie l 00:00: [facility] Yes Nilanjana 1 ml M emoria 8-29 Tracie l 00:00: [facility] Yes Nilanjana 1 ml M emoria 8-29 Tracie l 00:00: [facility] Yes Nilanjana 1 ml M emoria 8-29 Tracie l 00:00: [facility] Yes Nilanjana 1 ml M emoria 8-29 Tracie l 00:00: Methotrexat 0 Yes Nilanjana TAKE SIX Memoria e 8-27 Tracie TABLET BY l 02:45: MOUTH [place] 42 EVERY WEEK Levothyroxi 2019-0 Yes Nilanjana 1 tablet Memoria ne Sodium 8-27 Tracie every l 02:45: morning on 42 an empty stomach Protonix 20190 Yes Nilanjana 1 tablet Memoria 8-27 Tracie l 02:45: [place] 42 Methotrexat 2019-0 Yes Nilanjana take 6 Memoria e 8-27 Tracie tablets by l 02:45: mouth [place] 42 every week Methotrexat 2019-0 Yes Nilanjana TAKE SIX Mem[facility] e 8-27 Tracie TABLET BY l 02:45: MOUTH [place] 42 EVERY WEEK Levothyroxi 2019-0 Yes Nilanjana 1 tablet [facility] ne Sodium 8-27 Tracie every l 02:45: morning on 42 an empty stomach Protonix 2019-0 Yes Nilanjana 1 tablet Memoria 8-27 Tracie l 02:45: [place] 42 Methotrexat 2019-0 Yes Nilanjana take 6 Memoria e 8-27 Tracie tablets by l 02:45: mouth [place] 42 every week Methotrexat 2019-0 Yes Nilanjana TAKE SIX Memoria e 8-27 Tracie TABLET BY l 02:45: MOUTH [place] 42 EVERY WEEK Levothyroxi 2019-0 Yes Nilanjana 1 tablet [facility] ne Sodium 8-27 Tracie every l 02:45: morning on 42 an empty stomach Protonix [id number] Yes Nilanjana 1 tablet Memoria 8-27 Tracie l 02:45: [place] 42 Methotrexat 2019-0 Yes Nilanjana take 6 Memoria e 8-27 Tracie tablets by l 02:45: mouth [place] 42 every week Methotrexat 2019-0 Yes Nilanjana TAKE SIX Mem[facility] e 8-27 Tracie TABLET BY l 02:45: MOUTH 42 EVERY WEEK Levothyroxi 2019-0 Yes Nilanjana 1 tablet [facility] ne Sodium 8-27 Tracie every l 02:45: morning on 42 an empty stomach Protonix 20190 Yes Nilanjana 1 tablet Memoria 8-27 Tracie l 02:45: [place] 42 Methotrexat 2019-0 Yes Nilanjana take 6 Memoria e 8-27 Tracie tablets by l 02:45: mouth 42 every week Methotrexat 2019-0 Yes Nilanjana TAKE SIX Mem[facility] e 8-27 Tracie TABLET BY l 02:45: MOUTH 42 EVERY WEEK Levothyroxi 2019-0 Yes Nilanjana 1 tablet [facility] ne Sodium 8-27 Tracie every l 02:45: morning on 42 an empty stomach Protonix 2019-0 Yes Nilanjana 1 tablet Memoria 8-27 Tracie l 02:45: [place] 42 Methotrexat 2019-0 Yes Nilanjana take 6 Memoria e 8-27 Tracie tablets by l 02:45: mouth [place] 42 every week Methotrexat 2019-0 Yes Nilanjana TAKE SIX Memoria e 8-27 Tracie TABLET BY l 02:45: MOUTH [place] 42 EVERY WEEK Levothyroxi 2019-0 Yes Nilanjana 1 tablet Memoria ne Sodium 8-27 Tracie every l 02:45: morning on 42 an empty stomach Protonix 2019-0 Yes Nilanjana 1 tablet Memoria 8-27 Tracie l 02:45: [place] 42 Methotrexat 2019-0 Yes Nilanjana take 6 Memoria e 8-27 Tracie tablets by l 02:45: mouth [place] 42 every week Methotrexat 2019-0 Yes Nilanjana TAKE SIX Mem[facility] e 8-27 Tracie TABLET BY l 02:45: MOUTH 42 EVERY WEEK Levothyroxi 2019-0 Yes Nilanjana 1 tablet [facility] ne Sodium 8-27 [place] every l 02:45: morning on 42 an empty stomach Protonix 2019-0 Yes Nilanjana 1 tablet [facility] 8-27 Tr[place]ie l 02:45: [place] 42 Methotrexat 2019-0 Yes Nilanjana take 6 [facility] 8-27 [place] tablets by l 02:45: mouth 42 every week Methotrexat 2019-0 Yes Nilanjana TAKE SIX [facility] 8-27 [place] TABLET BY l 02:45: MOUTH 42 EVERY WEEK Levothyroxi 2019-0 Yes Nilanjana 1 tablet [facility] ne Sodium 8-27 Tr[place]ie every l 02:45: morning on [place] 42 an empty stomach Protonix 2019-0 Yes Nilanjana 1 tablet [facility] 8-27 Tracie l 02:45: Methotrexat 2019-0 Yes Nilanjana take 6 [facility] 8-27 [place] tablets by l 02:45: mouth 42 every week Methotrexat 2019-0 Yes Nilanjana TAKE SIX [facility] 8-27 [place] TABLET BY l 02:45: MOUTH 42 EVERY WEEK Levothyroxi 2019-0 Yes Nilanjana 1 tablet [facility] Sodium 8-27 [place] every l 02:45: morning on [place] 42 an empty stomach Protonix 2019-0 Yes Nilanjana 1 tablet [facility] 8-27 Tracie l 02:45: [place] 42 Methotrexat 2019-0 Yes Nilanjana take 6 [facility] 8-27 [place] tablets by l 02:45: mouth 42 every week Methotrexat 2019-0 Yes Nilanjana TAKE SIX [facility] 8-27 Tr[place]ie TABLET BY l 02:45: MOUTH [place] 42 EVERY WEEK Levothyroxi 2019-0 Yes Nilanjana 1 tablet [facility] ne Sodium 8-27 Tr[place] every l 02:45: morning on 42 an empty stomach Protonix 2019-0 Yes Nilanjana 1 tablet [facility] 8-27 Tracie l 02:45: 42 Methotrexat 2019-0 Yes Nilanjana take 6 [facility] e 8-27 [place] tablets by l 02:45: mouth 42 every week Enbrel Mini 2019-0 Yes Nilanjana 1 ml M emoria 8-26 Tracie l 00:00: Enbrel Mini 2019-0 Yes Nilanjana 1 ml M emoria 8-26 Tracie l 00:00: Enbrel Mini 2019-0 Yes Nilanjana 1 ml M emoria 8-26 Tr[place]ie l 00:00: Enbrel Mini 2019-0 Yes Nilanjana 1 ml M emoria 8-26 [place]ie l 00:00: Enbrel Mini 2019-0 Yes Nilanjana 1 ml M emoria 8-26 [place] l 00:00: Enbrel Mini 2019-0 Yes Nilanjana 1 ml M emoria 8-26 [place] l 00:00: Enbrel Mini 2019-0 Yes Nilanjana 1 ml M emoria 8-26 [place] l 00:00: Enbrel Mini 2019-0 Yes Nilanjana 1 ml M emoria 8-26 [place]ie l 00:00: Enbrel Mini 2019-0 Yes Nilanjana 1 ml M emoria 8-26 [place]ie l 00:00: Enbrel Mini 2019-0 Yes Nilanjana 1 ml M emoria 8-26 Tracie l 00:00: alendronate 2019-0 2020- No [id number] 70mg Take 1 [facility] 70 mg 5-22 05-22 tablet by ity of tablet 00:00: 04:59 mouth [place] 00 :00 weekly. [facility] Branch alendronate 2019-0 2020- No [id number] 70mg Take 1 [facility] 70 mg 5-22 05-22 tablet by ity of tablet 00:00: 04:59 mouth [place] 00 :00 weekly. [facility] Branch alendronate 2019-0 2020- No [id number] 70mg Take 1 [facility] 70 mg 5-22 05-22 tablet by ity of tablet 00:00: 04:59 mouth [place] 00 :00 weekly. Medical Branch alendronate 2018- 2020- No [id number] 70mg Take 1 [facility] 70 mg 5-22 -26 tablet by ity of tablet 00:00: 00:00 mouth [place] 00 :00 weekly. [facility] alendronate 2018- 2020- No [id number] 70mg Take 1 [facility] 70 mg 5-22 -26 tablet by ity of tablet 00:00: 00:00 mouth [place] 00 :00 weekly. [facility] foLIC acid 2018- Yes [id number] 1mg Take 1 [facility] 1 mg tablet 1-10 tablet by ity of 00:00: mouth [place] 00 daily. [facility] foLIC acid Yes [id number] 1mg Take 1 [facility] 1 mg tablet 1-10 tablet by ity of 00:00: mouth [place] 00 daily. [facility] foLIC acid Yes [id number] 1mg Take 1 [facility] 1 mg tablet 1-10 tablet by ity of 00:00: mouth [place] 00 daily. Medical Branch foLIC acid Yes [id number] 1mg Take 1 [facility] 1 mg tablet 1-10 tablet by ity of 00:00: mouth [place] 00 daily. Medical Branch foLIC acid Yes [id number] 1mg Take 1 [facility] 1 mg tablet 1-10 tablet by ity of 00:00: mouth [place] 00 daily. [facility] foLIC acid Yes [id number] 1mg Take 1 [facility] 1 mg tablet 1-10 tablet by ity of 00:00: mouth [place] 00 daily. Medical Branch foLIC acid 2018- Yes [id number] 1mg Take 1 [facility] 1 mg tablet 1-10 tablet by ity of 00:00: mouth [place] 00 daily. [facility] foLIC acid Yes [id number] 1mg Take 1 [facility] 1 mg tablet 1-10 tablet by ity of 00:00: mouth [place] 00 daily. [facility] foLIC acid 2019- Yes [id number] 1mg Take 1 [facility] 1 mg tablet 1-10 tablet by ity of 00:00: mouth [place] 00 daily. [facility] foLIC acid 2018-0 Yes [id number] 1mg Take 1 [facility] 1 mg tablet 1-10 tablet by ity of 00:00: mouth [place] 00 daily. [facility] foLIC acid 2018- Yes [id number] 1mg Take 1 [facility] 1 mg tablet 1-10 tablet by ity of 00:00: mouth [place] 00 daily. Medical Branch foLIC acid 2018-0 Yes [id number] 1mg Take 1 [facility] 1 mg tablet 1-10 tablet by ity of 00:00: mouth [place] 00 daily. Medical Branch foLIC acid 2018-0 Yes [id number] 1mg Take 1 [facility] 1 mg tablet 1-10 tablet by ity of 00:00: mouth [place] 00 daily. Medical Branch foLIC acid Yes [id number] 1mg Take 1 [facility] 1 mg tablet 1-10 tablet by ity of 00:00: mouth [place] 00 daily. Medical Branch foLIC acid Yes [id number] 1mg Take 1 [facility] 1 mg tablet 1-10 tablet by ity of 00:00: mouth [place] 00 daily. Medical Branch foLIC acid Yes [id number] 1mg Take 1 [facility] 1 mg tablet 1-10 tablet by ity of 00:00: mouth [place] 00 daily. Medical Branch foLIC acid Yes [id number] 1mg Take 1 [facility] 1 mg tablet 1-10 tablet by ity of 00:00: mouth [place] 00 daily. Medical Branch foLIC acid Yes [id number] 1mg Take 1 [facility] 1 mg tablet 1-10 tablet by ity of 00:00: mouth [place] 00 daily. Medical Branch foLIC acid Yes [id number] 1mg Take 1 [facility] 1 mg tablet 1-10 tablet by ity of 00:00: mouth [place] 00 daily. Medical Branch foLIC acid Yes [id number] 1mg Take 1 [facility] 1 mg tablet 1-10 tablet by ity of 00:00: mouth [place] 00 daily. Medical Branch foLIC acid 2018- Yes [id number] 1mg Take 1 [facility] 1 mg tablet 1-10 tablet by ity of 00:00: mouth [place] 00 daily. Medical Branch foLIC acid 2018- Yes [id number] 1mg Take 1 [facility] 1 mg tablet 1-10 tablet by ity of 00:00: mouth [place] 00 daily. Medical Branch foLIC acid 2018-0 Yes [id number] 1mg Take 1 [facility] 1 mg tablet 1-10 tablet by ity of 00:00: mouth [place] 00 daily. Medical Branch foLIC acid 2018- Yes [id number] 1mg Take 1 [facility] 1 mg tablet 1-10 tablet by ity of 00:00: mouth [place] 00 daily. [facility] foLIC acid 2018- Yes [id number] 1mg Take 1 [facility] 1 mg tablet 1-10 tablet by ity of 00:00: mouth [place] 00 daily. Medical Branch foLIC acid 2018-0 Yes [id number] 1mg Take 1 [facility] 1 mg tablet 1-10 tablet by ity of 00:00: mouth [place] 00 daily. Medical Branch foLIC acid 2018-0 Yes [id number] 1mg Take 1 [facility] 1 mg tablet 1-10 tablet by ity of 00:00: mouth [place] 00 daily. Medical Branch foLIC acid Yes [id number] 1mg Take 1 [facility] 1 mg tablet 1-10 tablet by ity of 00:00: mouth [place] 00 daily. Medical Branch foLIC acid Yes [id number] 1mg Take 1 [facility] 1 mg tablet 1-10 tablet by ity of 00:00: mouth [place] 00 daily. Medical Branch foLIC acid Yes [id number] 1mg Take 1 [facility] 1 mg tablet 1-10 tablet by ity of 00:00: mouth [place] 00 daily. Medical Branch foLIC acid Yes [id number] 1mg Take 1 [facility] 1 mg tablet 1-10 tablet by ity of 00:00: mouth [place] 00 daily. Medical Branch foLIC acid Yes [id number] 1mg Take 1 [facility] 1 mg tablet 1-10 tablet by ity of 00:00: mouth [place] 00 daily. Medical Branch foLIC acid Yes [id number] 1mg Take 1 [facility] 1 mg tablet 1-10 tablet by ity of 00:00: mouth [place] 00 daily. Medical Branch foLIC acid Yes [id number] 1mg Take 1 [facility] 1 mg tablet 1-10 tablet by ity of 00:00: mouth [place] 00 daily. Medical Branch foLIC acid Yes [id number] 1mg Take 1 [facility] 1 mg tablet 1-10 tablet by ity of 00:00: mouth [place] 00 daily. Medical Branch foLIC acid Yes [id number] 1mg Take 1 [facility] 1 mg tablet 1-10 tablet by ity of 00:00: mouth [place] 00 daily. Medical Branch foLIC acid 2018- Yes [id number] 1mg Take 1 [facility] 1 mg tablet 1-10 tablet by ity of 00:00: mouth [place] 00 daily. Medical Branch foLIC acid 2018- Yes [id number] 1mg Take 1 [facility] 1 mg tablet 1-10 tablet by ity of 00:00: mouth [place] 00 daily. Medical Branch foLIC acid 2018-0 Yes [id number] 1mg Take 1 [facility] 1 mg tablet 1-10 tablet by ity of 00:00: mouth [place] 00 daily. Medical Branch foLIC acid 2018- Yes [id number] 1mg Take 1 [facility] 1 mg tablet 1-10 tablet by ity of 00:00: mouth [place] 00 daily. Medical Branch foLIC acid 2018- Yes [id number] 1mg Take 1 [facility] 1 mg tablet 1-10 tablet by ity of 00:00: mouth [place] 00 daily. Medical Branch foLIC acid Yes [id number] 1mg Take 1 [facility] 1 mg tablet 1-10 tablet by ity of 00:00: mouth [place] 00 daily. Medical Branch foLIC acid Yes [id number] 1mg Take 1 [facility] 1 mg tablet 1-10 tablet by ity of 00:00: mouth [place] 00 daily. [facility] foLIC acid Yes [id number] 1mg Take 1 [facility] 1 mg tablet 1-10 tablet by ity of 00:00: mouth [place] 00 daily. Medical Branch foLIC acid Yes [id number] 1mg Take 1 [facility] 1 mg tablet 1-10 tablet by ity of 00:00: mouth [place] 00 daily. Medical Branch foLIC acid Yes [id number] 1mg Take 1 [facility] 1 mg tablet 1-10 tablet by ity of 00:00: mouth [place] 00 daily. Medical Branch foLIC acid Yes [id number] 1mg Take 1 [facility] 1 mg tablet 1-10 tablet by ity of 00:00: mouth [place] 00 daily. [facility] foLIC acid Yes [id number] 1mg Take 1 [facility] 1 mg tablet 1-10 tablet by ity of 00:00: mouth [place] 00 daily. Medical Branch foLIC acid Yes [id number] 1mg Take 1 [facility] 1 mg tablet 1-10 tablet by ity of 00:00: mouth [place] 00 daily. Medical Branch foLIC acid 2018- Yes [id number] 1mg Take 1 [facility] 1 mg tablet 1-10 tablet by ity of 00:00: mouth [place] 00 daily. [facility] foLIC acid 2018-0 Yes [id number] 1mg Take 1 [facility] 1 mg tablet 1-10 tablet by ity of 00:00: mouth [place] 00 daily. [facility] foLIC acid 2018- Yes [id number] 1mg Take 1 [facility] 1 mg tablet 1-10 tablet by ity of 00:00: mouth [place] 00 daily. Medical Branch cyclobenzap 2018- Yes 10mg Take 10 mg Univers rine 1-28 by mouth ity of (FLEXERIL) 19:42: as needed [place] 10 mg 45 for Muscle Medical tablet Spasms. Branch gabapentin 2017-04 Yes 800mg Take 800 Un [facility] (NEURONTIN) 1-28 mg by ity of 800 mg 19:42: mouth 3 [place] tablet 45 (three) Medical times Branch daily. rosuvastati 2017-04 Yes 20mg Take 20 mg Univers n (CRESTOR) -28 by mouth ity of 20 mg 19:42: at [place] tablet 45 bedtime. Medical Branch amLODIPine 2017-04 Yes 5mg Take 5 mg [facility] [place] 5 mg tablet -28 by mouth ity of 19:42: daily. [place] 45 Medical Branch proMETHazin 2017-04 Yes 12.5mg Take 12.5 Univers e 12.5 mg 1-28 mg by ity of tablet 19:42: mouth [place] 45 every 4 Medical (four) Branch hours as needed. etanercept 2017-04 Yes 50mg inject 1 Uni vers (ENBREL) 50 1-28 mL under ity of mg/mL (0.98 00:00: the skin [place] mL) 00 weekly. Medical injection Branch etanercept 2017-04 Yes 50mg inject 1 Uni vers (ENBREL) 50 1-28 mL under ity of mg/mL (0.98 00:00: the skin [place] mL) 00 weekly. Medical injection Branch Diclofenac 2017-04 Yes Apply Univer s Sodium 1 % 1-28 1gram to ity o f gel 00:00: affected [place] 00 area twice Medical daily Branch etanercept 2017-04 Yes 50mg inject 1 Uni vers (ENBREL) 50 1-28 mL under ity of mg/mL (0.98 00:00: the skin [place] mL) 00 weekly. Medical injection Branch etanercept 2017-04 Yes 50mg inject 1 [facility] vers (ENBREL) 50 1-28 mL under ity of mg/mL (0.98 00:00: the skin [place] mL) 00 weekly. Medical injection Branch etanercept 2017-04 Yes 50mg inject 1 [facility] vers (ENBREL) 50 1-28 mL under ity of mg/mL (0.98 00:00: the skin [place] mL) 00 weekly. Medical injection Branch etanercept 2017-04 Yes 50mg inject 1 [facility] vers (ENBREL) 50 1-28 mL under ity of mg/mL (0.98 00:00: the skin [place] mL) 00 weekly. Medical injection Branch etanercept 2017-04 Yes 50mg inject 1 [facility] vers (ENBREL) 50 1-28 mL under ity of mg/mL (0.98 00:00: the skin [place] mL) 00 weekly. Medical injection Branch etanercept 2017-04 Yes 50mg inject 1 [facility] vers (ENBREL) 50 1-28 mL under ity of mg/mL (0.98 00:00: the skin [place] mL) 00 weekly. Medical injection Branch etanercept 2017-04 Yes 50mg inject 1 [facility] vers (ENBREL) 50 1-28 mL under ity of mg/mL (0.98 00:00: the skin [place] mL) 00 weekly. Medical injection Branch etanercept 2017-04 Yes 50mg inject 1 [facility] vers (ENBREL) 50 1-28 mL under ity of mg/mL (0.98 00:00: the skin [place] mL) 00 weekly. Medical injection Branch etanercept 2017-04 Yes 50mg inject 1 [facility] vers (ENBREL) 50 1-28 mL under ity of mg/mL (0.98 00:00: the skin [place] mL) 00 weekly. Medical injection Branch etanercept 2017-04 Yes 50mg inject 1 [facility] vers (ENBREL) 50 1-28 mL under ity of mg/mL (0.98 00:00: the skin [place] mL) 00 weekly. Medical injection Branch Diclofenac 2017-04 Yes Apply Univer s Sodium 1 % 1-28 1gram to ity o f gel 00:00: affected [place] 00 area twice Medical daily Branch etanercept 2017-04 Yes 50mg inject 1 Uni vers (ENBREL) 50 1-28 mL under ity of mg/mL (0.98 00:00: the skin [place] mL) 00 weekly. Medical injection Branch etanercept 2017-04 Yes 50mg inject 1 [facility] vers (ENBREL) 50 1-28 mL under ity of mg/mL (0.98 00:00: the skin [place] mL) 00 weekly. Medical injection Branch etanercept 2017-04 Yes 50mg inject 1 [facility] vers (ENBREL) 50 1-28 mL under ity of mg/mL (0.98 00:00: the skin [place] mL) 00 weekly. Medical injection Branch etanercept 2017-04 Yes 50mg inject 1 [facility] vers (ENBREL) 50 1-28 mL under ity of mg/mL (0.98 00:00: the skin [place] mL) 00 weekly. Medical injection Branch etanercept 2017-04 Yes 50mg inject 1 [facility] vers (ENBREL) 50 1-28 mL under ity of mg/mL (0.98 00:00: the skin [place] mL) 00 weekly. Medical injection Branch etanercept 2017-04 Yes 50mg inject 1 [facility] vers (ENBREL) 50 1-28 mL under ity of mg/mL (0.98 00:00: the skin [place] mL) 00 weekly. Medical injection Branch etanercept 2017-04 Yes 50mg inject 1 [facility] vers (ENBREL) 50 1-28 mL under ity of mg/mL (0.98 00:00: the skin [place] mL) 00 weekly. Medical injection Branch etanercept 2017-04 Yes 50mg inject 1 [facility] vers (ENBREL) 50 1-28 mL under ity of mg/mL (0.98 00:00: the skin [place] mL) 00 weekly. Medical injection Branch etanercept 2017-04 Yes 50mg inject 1 [facility] vers (ENBREL) 50 1-28 mL under ity of mg/mL (0.98 00:00: the skin [place] mL) 00 weekly. Medical injection Branch etanercept 2017-04 Yes 50mg inject 1 [facility] vers (ENBREL) 50 1-28 mL under ity of mg/mL (0.98 00:00: the skin [place] mL) 00 weekly. Medical injection Branch etanercept 2017-04 Yes 50mg inject 1 Uni vers (ENBREL) 50 1-28 mL under ity of mg/mL (0.98 00:00: the skin [place] mL) 00 weekly. Medical injection Branch Diclofenac 2017-04 Yes Apply Univer s Sodium 1 % 1-28 1gram to ity o f gel 00:00: affected [place] 00 area twice Medical daily Branch etanercept 2017-04 Yes 50mg inject 1 Uni vers (ENBREL) 50 1-28 mL under ity of mg/mL (0.98 00:00: the skin [place] mL) 00 weekly. Medical injection Branch etanercept 2018-1 Yes 50mg inject 1 Uni vers (ENBREL) 50 1-28 mL under ity of mg/mL (0.98 00:00: the skin [place] mL) 00 weekly. Medical injection Branch Diclofenac 2017-04 Yes Apply Univer s Sodium 1 % 1-28 1gram to ity o f gel 00:00: affected [place] 00 area twice Medical daily Branch etanercept 2017-04 Yes 50mg inject 1 Uni vers (ENBREL) 50 1-28 mL under ity of mg/mL (0.98 00:00: the skin [place] mL) 00 weekly. Medical injection Branch Diclofenac 2017-04 Yes Apply Univer s Sodium 1 % 1-28 1gram to ity o f gel 00:00: affected [place] 00 area twice Medical daily Branch etanercept 2017-04 Yes 50mg inject 1 Uni vers (ENBREL) 50 1-28 mL under ity of mg/mL (0.98 00:00: the skin [place] mL) 00 weekly. Medical injection Branch Diclofenac 2017-04 Yes Apply Univer s Sodium 1 % 1-28 1gram to ity o f gel 00:00: affected [place] 00 area twice Medical daily Branch etanercept 2017-04 Yes 50mg inject 1 Uni vers (ENBREL) 50 1-28 mL under ity of mg/mL (0.98 00:00: the skin [place] mL) 00 weekly. Medical injection Branch Diclofenac 2017-04 Yes Apply Univer s Sodium 1 % 1-28 1gram to ity o f gel 00:00: affected [place] 00 area twice Medical daily Branch etanercept 2017-04 Yes 50mg inject 1 Uni vers (ENBREL) 50 1-28 mL under ity of mg/mL (0.98 00:00: the skin [place] mL) 00 weekly. Medical injection Branch Diclofenac 2017-04 Yes Apply Univer s Sodium 1 % 1-28 1gram to ity o f gel 00:00: affected [place] 00 area twice Medical daily Branch etanercept 2017-04 Yes 50mg inject 1 Uni vers (ENBREL) 50 1-28 mL under ity of mg/mL (0.98 00:00: the skin [place] mL) 00 weekly. Medical injection Branch Diclofenac 2017-04 Yes Apply Univer s Sodium 1 % 1-28 1gram to ity o f gel 00:00: affected [place] 00 area twice Medical daily Branch etanercept 2017-04 Yes 50mg inject 1 Uni vers (ENBREL) 50 1-28 mL under ity of mg/mL (0.98 00:00: the skin [place] mL) 00 weekly. Medical injection Branch Diclofenac 2017-04 Yes Apply Univer s Sodium 1 % 1-28 1gram to ity o f gel 00:00: affected [place] 00 area twice Medical daily Branch etanercept 2017-04 Yes 50mg inject 1 Uni vers (ENBREL) 50 1-28 mL under ity of mg/mL (0.98 00:00: the skin [place] mL) 00 weekly. Medical injection Branch Diclofenac 2017-04 Yes Apply Univer s Sodium 1 % 1-28 1gram to ity o f gel 00:00: affected [place] 00 area twice Medical daily Branch etanercept 2017-04 Yes 50mg inject 1 Uni vers (ENBREL) 50 1-28 mL under ity of mg/mL (0.98 00:00: the skin [place] mL) 00 weekly. Medical injection Branch Diclofenac 2017-04 Yes Apply Univer s Sodium 1 % 1-28 1gram to ity o f gel 00:00: affected [place] 00 area twice Medical daily Branch etanercept 2017-04 Yes 50mg inject 1 Uni vers (ENBREL) 50 1-28 mL under ity of mg/mL (0.98 00:00: the skin [place] mL) 00 weekly. Medical injection Branch Diclofenac 2017-04 Yes Apply Univer s Sodium 1 % 1-28 1gram to ity o f gel 00:00: affected [place] 00 area twice Medical daily Branch etanercept 2017-04 Yes 50mg inject 1 Uni vers (ENBREL) 50 1-28 mL under ity of mg/mL (0.98 00:00: the skin [place] mL) 00 weekly. Medical injection Branch etanercept 2017-04 Yes 50mg inject 1 [facility] vers (ENBREL) 50 1-28 mL under ity of mg/mL (0.98 00:00: the skin [place] mL) 00 weekly. Medical injection Branch etanercept 2017-04 Yes 50mg inject 1 [facility] vers (ENBREL) 50 1-28 mL under ity of mg/mL (0.98 00:00: the skin [place] mL) 00 weekly. Medical injection Branch etanercept 2017-04 Yes 50mg inject 1 Uni vers (ENBREL) 50 1-28 mL under ity of mg/mL (0.98 00:00: the skin [place] mL) 00 weekly. Medical injection Branch Diclofenac 2017-04 Yes Apply Univer s Sodium 1 % 1-28 1gram to ity o f gel 00:00: affected [place] 00 area twice Medical daily Branch etanercept 2017-04 Yes 50mg inject 1 Uni vers (ENBREL) 50 1-28 mL under ity of mg/mL (0.98 00:00: the skin [place] mL) 00 weekly. Medical injection Branch etanercept 2017-04 Yes 50mg inject 1 [facility] vers (ENBREL) 50 1-28 mL under ity of mg/mL (0.98 00:00: the skin [place] mL) 00 weekly. Medical injection Branch etanercept 2017-04 Yes 50mg inject 1 [facility] vers (ENBREL) 50 1-28 mL under ity of mg/mL (0.98 00:00: the skin [place] mL) 00 weekly. Medical injection Branch etanercept 2017-04 Yes 50mg inject 1 [facility] vers (ENBREL) 50 1-28 mL under ity of mg/mL (0.98 00:00: the skin [place] mL) 00 weekly. Medical injection Branch etanercept 2017-04 Yes 50mg inject 1 [facility] vers (ENBREL) 50 1-28 mL under ity of mg/mL (0.98 00:00: the skin [place] mL) 00 weekly. Medical injection Branch etanercept 2017-04 Yes 50mg inject 1 [facility] vers (ENBREL) 50 1-28 mL under ity of mg/mL (0.98 00:00: the skin [place] mL) 00 weekly. Medical injection Branch etanercept 2017-04 Yes 50mg inject 1 [facility] vers (ENBREL) 50 1-28 mL under ity of mg/mL (0.98 00:00: the skin [place] mL) 00 weekly. Medical injection Branch etanercept 2017-04 Yes 50mg inject 1 [facility] vers (ENBREL) 50 1-28 mL under ity of mg/mL (0.98 00:00: the skin [place] mL) 00 weekly. Medical injection Branch etanercept 2017-04 Yes 50mg inject 1 [facility] vers (ENBREL) 50 1-28 mL under ity of mg/mL (0.98 00:00: the skin [place] mL) 00 weekly. Medical injection Branch etanercept 2017-04 Yes 50mg inject 1 [facility] vers (ENBREL) 50 1-28 mL under ity of mg/mL (0.98 00:00: the skin [place] mL) 00 weekly. Medical injection Branch etanercept 2017-04 Yes 50mg inject 1 [facility] vers (ENBREL) 50 1-28 mL under ity of mg/mL (0.98 00:00: the skin [place] mL) 00 weekly. Medical injection Branch etanercept 2017-04 Yes 50mg inject 1 [facility] vers (ENBREL) 50 1-28 mL under ity of mg/mL (0.98 00:00: the skin [place] mL) 00 weekly. Medical injection Branch etanercept 2017-04 Yes 50mg inject 1 [facility] vers (ENBREL) 50 1-28 mL under ity of mg/mL (0.98 00:00: the skin [place] mL) 00 weekly. Medical injection Branch etanercept 2017-04 Yes 50mg inject 1 [facility] vers (ENBREL) 50 1-28 mL under ity of mg/mL (0.98 00:00: the skin [place] mL) 00 weekly. Medical injection Branch Diclofenac 2017-04 2020- No Apply Unive rs Sodium 1 % 05-20 10-16 1gram to ity of gel 00:00: 00:00 affected [place] 00 :00 area twice Medical daily Branch pantoprazol 2017-04 Yes 40mg Take 40 mg Univers e 40 mg EC 1-12 by mouth ity o f tablet 00:00: daily. [place] [id number] Medical Branch pantoprazol 2017-04 Yes 40mg Take 40 mg Univers e 40 mg EC 1-12 by mouth ity o f tablet 00:00: daily. [place] [address] Medical Branch pantoprazol 2017-04 Yes 40mg Take 40 mg Univers e 40 mg EC 1-12 by mouth ity o f tablet 00:00: daily. [place] [address] Medical Branch pantoprazol 2017-04 Yes 40mg Take 40 mg Univers e 40 mg EC 1-12 by mouth ity o f tablet 00:00: daily. [place] [address] Medical Branch pantoprazol 2017-04 Yes 40mg Take 40 mg Univers e 40 mg EC 1-12 by mouth ity o f tablet 00:00: daily. [place] [address] Medical Branch pantoprazol 2017-04 Yes 40mg Take 40 mg Univers e 40 mg EC 1-12 by mouth ity o f tablet 00:00: daily. [place] [facility] pantoprazol 2017-04 Yes 40mg Take 40 mg Univers e 40 mg EC 1-12 by mouth ity o f tablet 00:00: daily. [place] [facility] pantoprazol 2017-04 Yes 40mg Take 40 mg Univers e 40 mg EC 1-12 by mouth ity o f tablet 00:00: daily. [place] [facility] pantoprazol 2017-04 Yes 40mg Take 40 mg Univers e 40 mg EC 1-12 by mouth ity o f tablet 00:00: daily. [place] [facility] pantoprazol 2017-04 Yes 40mg Take 40 mg Univers e 40 mg EC 1-12 by mouth ity o f tablet 00:00: daily. [place] [facility] pantoprazol 2017-04 Yes 40mg Take 40 mg Univers e 40 mg EC 1-12 by mouth ity o f tablet 00:00: daily. [address] pantoprazol 2017-04 Yes 40mg Take 40 mg Univers e 40 mg EC 1-12 by mouth ity o f tablet 00:00: daily. [place] [facility] pantoprazol 2017-04 Yes 40mg Take 40 mg Univers e 40 mg EC 1-12 by mouth ity o f tablet 00:00: daily. [place] [facility] pantoprazol 2017-04 Yes 40mg Take 40 mg Univers e 40 mg EC 1-12 by mouth ity o f tablet 00:00: daily. [address] pantoprazol 2017-04 Yes 40mg Take 40 mg Univers e 40 mg EC 1-12 by mouth ity o f tablet 00:00: daily. [address] pantoprazol 2017-04 Yes 40mg Take 40 mg Univers e 40 mg EC 1-12 by mouth ity o f tablet 00:00: daily. [place] [facility] pantoprazol 2017-04 Yes 40mg Take 40 mg Univers e 40 mg EC 1-12 by mouth ity o f tablet 00:00: daily. [address] pantoprazol 2017-04 Yes 40mg Take 40 mg Univers e 40 mg EC 1-12 by mouth ity o f tablet 00:00: daily. [address] pantoprazol 2017-04 Yes 40mg Take 40 mg Univers e 40 mg EC 1-12 by mouth ity o f tablet 00:00: daily. [address] pantoprazol 2017-04 Yes 40mg Take 40 mg Univers e 40 mg EC 1-12 by mouth ity o f tablet 00:00: daily. [place] [facility] pantoprazol 2017-04 Yes 40mg Take 40 mg Univers e 40 mg EC 1-12 by mouth ity o f tablet 00:00: daily. [place] [facility] pantoprazol 2017-04 Yes 40mg Take 40 mg Univers e 40 mg EC 1-12 by mouth ity o f tablet 00:00: daily. [place] [facility] pantoprazol 2017-04 Yes 40mg Take 40 mg Univers e 40 mg EC 1-12 by mouth ity o f tablet 00:00: daily. [place] [facility] pantoprazol 2017-04 Yes 40mg Take 40 mg Univers e 40 mg EC 1-12 by mouth ity o f tablet 00:00: daily. [place] [facility] pantoprazol 2017-04 Yes 40mg Take 40 mg Univers e 40 mg EC 1-12 by mouth ity o f tablet 00:00: daily. [place] [facility] pantoprazol 2017-04 Yes 40mg Take 40 mg Univers e 40 mg EC 1-12 by mouth ity o f tablet 00:00: daily. [place] [facility] pantoprazol 2017-04 Yes 40mg Take 40 mg Univers e 40 mg EC 1-12 by mouth ity o f tablet 00:00: daily. [place] [facility] pantoprazol 2017-04 Yes 40mg Take 40 mg [facility] 40 mg EC 1-12 by mouth ity o f tablet 00:00: daily. [place] [facility] pantoprazol 2017-04 Yes 40mg Take 40 mg Univers e 40 mg EC 1-12 by mouth ity o f tablet 00:00: daily. [place] [facility] pantoprazol 2017-04 Yes 40mg Take 40 mg [facility] e 40 mg EC 1-12 by mouth ity o f tablet 00:00: daily. [place] [facility] pantoprazol 2017-04 Yes 40mg Take 40 mg [facility] e 40 mg EC 1-12 by mouth ity o f tablet 00:00: daily. [address] pantoprazol 2017-04 Yes 40mg Take 40 mg [facility] e 40 mg EC 1-12 by mouth ity o f tablet 00:00: daily. [address] pantoprazol 2017-04 Yes 40mg Take 40 mg Univers e 40 mg EC 1-12 by mouth ity o f tablet 00:00: daily. [place] [facility] pantoprazol 2017-04 Yes 40mg Take 40 mg Univers e 40 mg EC 1-12 by mouth ity o f tablet 00:00: daily. [place] [facility] pantoprazol 2017-04 Yes 40mg Take 40 mg Univers e 40 mg EC 1-12 by mouth ity o f tablet 00:00: daily. [place] [facility] pantoprazol 2017-04 Yes 40mg Take 40 mg Univers e 40 mg EC 1-12 by mouth ity o f tablet 00:00: daily. [place] [facility] pantoprazol 2017-04 Yes 40mg Take 40 mg Univers e 40 mg EC 1-12 by mouth ity o f tablet 00:00: daily. [place] [facility] pantoprazol 2017-04 Yes 40mg Take 40 mg Univers e 40 mg EC 1-12 by mouth ity o f tablet 00:00: daily. [place] [facility] pantoprazol 2017-04 Yes 40mg Take 40 mg Univers e 40 mg EC 1-12 by mouth ity o f tablet 00:00: daily. [place] [facility] pantoprazol 2017-04 Yes 40mg Take 40 mg Univers e 40 mg EC 1-12 by mouth ity o f tablet 00:00: daily. [place] [facility] pantoprazol 2017-04 Yes 40mg Take 40 mg Univers e 40 mg EC 1-12 by mouth ity o f tablet 00:00: daily. [address] pantoprazol 2017-04 Yes 40mg Take 40 mg Univers e 40 mg EC 1-12 by mouth ity o f tablet 00:00: daily. [address] pantoprazol 2017-04 Yes 40mg Take 40 mg Univers e 40 mg EC 1-12 by mouth ity o f tablet 00:00: daily. [place] [facility] pantoprazol 2017-04 Yes 40mg Take 40 mg Univers e 40 mg EC 1-12 by mouth ity o f tablet 00:00: daily. [address] pantoprazol 2017-04 Yes 40mg Take 40 mg [facility] e 40 mg EC 1-12 by mouth ity o f tablet 00:00: daily. [address] pantoprazol 2017-04 Yes 40mg Take 40 mg [facility] e 40 mg EC 1-12 by mouth ity o f tablet 00:00: daily. [address] pantoprazol 2017-04 Yes 40mg Take 40 mg [facility] e 40 mg EC 1-12 by mouth ity o f tablet 00:00: daily. [facility] pantoprazol 2017-04 Yes 40mg Take 40 mg [facility] e 40 mg EC 1-12 by mouth ity o f tablet 00:00: daily. [place] [facility] pantoprazol 2017-04 Yes 40mg Take 40 mg [facility] e 40 mg EC 1-12 by mouth ity o f tablet 00:00: daily. [place] [facility] pantoprazol 2017-04 Yes 40mg Take 40 mg Univers e 40 mg EC 1-12 by mouth ity o f tablet 00:00: daily. [place] [facility] pantoprazol 2017-04 Yes 40mg Take 40 mg Univers e 40 mg EC 1-12 by mouth ity o f tablet 00:00: daily. [place] [facility] pantoprazol 2017-04 Yes 40mg Take 40 mg Univers e 40 mg EC 1-12 by mouth ity o f tablet 00:00: daily. [address] Branch SUBCUTANEOU Yes Novolog Uni vers S INSULIN 7-11 insulin ity of PUMP MISC 20:13: pump- 2 [place] 23 units Medical every hour Branch per pump Calcium-Cho Yes 1{tbl} Take 1 Un davina lecalcifero 3-07 tablet by ity of l, D3, 00:00: mouth 2 [place] (CALCIUM 00 (two) Medical 500 + D) times Branch 500 daily with mg(1,250mg) meals. -400 unit tablet Calcium-Cho Yes 1{tbl} Take 1 Un davina lecalcifero 3-07 tablet by ity of l, D3, 00:00: mouth 2 [place] (CALCIUM 00 (two) Medical 500 + D) times Branch 500 daily with mg(1,250mg) meals. -400 unit tablet Calcium-Cho Yes 1{tbl} Take 1 Un davina lecalcifero 3-07 tablet by ity of l, D3, 00:00: mouth 2 [place] (CALCIUM 00 (two) Medical 500 + D) times Branch 500 daily with mg(1,250mg) meals. -400 unit tablet Calcium-Cho Yes 1{tbl} Take 1 Un dav[facility] lecalcifero 3-07 tablet by ity of l, D3, 00:00: mouth 2 [place] (CALCIUM 00 (two) Medical 500 + D) times Branch 500 daily with mg(1,250mg) meals. -400 unit tablet Calcium-Cho 2017-0 Yes 1{tbl} Take 1 Un davina lecalcifero 3-07 tablet by ity of l, D3, 00:00: mouth 2 [place] (CALCIUM 00 (two) Medical 500 + D) times Branch 500 daily with mg(1,250mg) meals. -400 unit tablet Calcium-Cho 2017- Yes 1{tbl} Take 1 Un davina lecalcifero 3-07 tablet by ity of l, D3, 00:00: mouth 2 [place] (CALCIUM 00 (two) Medical 500 + D) times Branch 500 daily with mg(1,250mg) meals. -400 unit tablet Calcium-Cho 2017- Yes 1{tbl} Take 1 Un davina lecalcifero 3-07 tablet by ity of l, D3, 00:00: mouth 2 [place] (CALCIUM 00 (two) Medical 500 + D) times Branch 500 daily with mg(1,250mg) meals. -400 unit tablet Calcium-Cho Yes 1{tbl} Take 1 Un dav[facility] lecalcifero 3-07 tablet by ity of l, D3, 00:00: mouth 2 [place] (CALCIUM 00 (two) Medical 500 + D) times Branch 500 daily with mg(1,250mg) meals. -400 unit tablet Calcium-Cho Yes 1{tbl} Take 1 Un dav[facility] lecalcifero 3-07 tablet by ity of l, D3, 00:00: mouth 2 [place] (CALCIUM 00 (two) Medical 500 + D) times Branch 500 daily with mg(1,250mg) meals. -400 unit tablet Calcium-Cho 2017- Yes 1{tbl} Take 1 Un davina lecalcifero 3-07 tablet by ity of l, D3, 00:00: mouth 2 [place] (CALCIUM 00 (two) Medical 500 + D) times Branch 500 daily with mg(1,250mg) meals. -400 unit tablet Calcium-Cho 2017- Yes 1{tbl} Take 1 Un davina lecalcifero 3-07 tablet by ity of l, D3, 00:00: mouth 2 [place] (CALCIUM 00 (two) Medical 500 + D) times Branch 500 daily with mg(1,250mg) meals. -400 unit tablet Calcium-Cho 2018-0 Yes 1{tbl} Take 1 Un davina lecalcifero 3-07 tablet by ity of l, D3, 00:00: mouth 2 [place] (CALCIUM 00 (two) Medical 500 + D) times Branch 500 daily with mg(1,250mg) meals. -400 unit tablet Calcium-Cho 2017-0 Yes 1{tbl} Take 1 Un dav[facility] lecalcifero 3-07 tablet by ity of l, D3, 00:00: mouth 2 [place] (CALCIUM 00 (two) Medical 500 + D) times Branch 500 daily with mg(1,250mg) meals. -400 unit tablet Calcium-Cho 2017-0 Yes 1{tbl} Take 1 Un davina lecalcifero 3-07 tablet by ity of l, D3, 00:00: mouth 2 [place] (CALCIUM 00 (two) Medical 500 + D) times Branch 500 daily with mg(1,250mg) meals. -400 unit tablet Calcium-Cho 2017-0 Yes 1{tbl} Take 1 Un dav[facility] lecalcifero 3-07 tablet by ity of l, D3, 00:00: mouth 2 [place] (CALCIUM 00 (two) Medical 500 + D) times Branch 500 daily with mg(1,250mg) meals. -400 unit tablet Calcium-Cho 2017-0 Yes 1{tbl} Take 1 Un dav[facility] lecalcifero 3-07 tablet by ity of l, D3, 00:00: mouth 2 [place] (CALCIUM 00 (two) Medical 500 + D) times Branch 500 daily with mg(1,250mg) meals. -400 unit tablet Calcium-Cho 2017-0 Yes 1{tbl} Take 1 Un dav[facility] lecalcifero 3-07 tablet by ity of l, D3, 00:00: mouth 2 [place] (CALCIUM 00 (two) Medical 500 + D) times Branch 500 daily with mg(1,250mg) meals. -400 unit tablet Calcium-Cho 2017-0 Yes 1{tbl} Take 1 Un dav[facility] lecalcifero 3-07 tablet by ity of l, D3, 00:00: mouth 2 [place] (CALCIUM 00 (two) Medical 500 + D) times Branch 500 daily with mg(1,250mg) meals. -400 unit tablet Calcium-Cho 2017- Yes 1{tbl} Take 1 Un davina lecalcifero 3-07 tablet by ity of l, D3, 00:00: mouth 2 [place] (CALCIUM 00 (two) Medical 500 + D) times Branch 500 daily with mg(1,250mg) meals. -400 unit tablet Calcium-Cho 2017- Yes 1{tbl} Take 1 Un dav[facility] lecalcifero 3-07 tablet by ity of l, D3, 00:00: mouth 2 [place] (CALCIUM 00 (two) Medical 500 + D) times Branch 500 daily with mg(1,250mg) meals. -400 unit tablet Calcium-Cho 2017- Yes 1{tbl} Take 1 Un davina lecalcifero 3-07 tablet by ity of l, D3, 00:00: mouth 2 [place] (CALCIUM 00 (two) Medical 500 + D) times Branch 500 daily with mg(1,250mg) meals. -400 unit tablet Calcium-Cho Yes 1{tbl} Take 1 Un dav[facility] lecalcifero 3-07 tablet by ity of l, D3, 00:00: mouth 2 [place] (CALCIUM 00 (two) Medical 500 + D) times Branch 500 daily with mg(1,250mg) meals. -400 unit tablet Calcium-Cho Yes 1{tbl} Take 1 Un dav[facility] lecalcifero 3-07 tablet by ity of l, D3, 00:00: mouth 2 [place] (CALCIUM 00 (two) Medical 500 + D) times Branch 500 daily with mg(1,250mg) meals. -400 unit tablet Calcium-Cho Yes 1{tbl} Take 1 Un [facility] lecalcifero 3-07 tablet by ity of l, D3, 00:00: mouth 2 [place] (CALCIUM 00 (two) Medical 500 + D) times Branch 500 daily with mg(1,250mg) meals. -400 unit tablet Calcium-Cho Yes 1{tbl} Take 1 Un [facility] lecalcifero 3-07 tablet by ity of l, D3, 00:00: mouth 2 [place] (CALCIUM 00 (two) Medical 500 + D) times Branch 500 daily with mg(1,250mg) meals. -400 unit tablet Calcium-Cho Yes 1{tbl} Take 1 Un dav[facility] lecalcifero 3-07 tablet by ity of l, D3, 00:00: mouth 2 [place] (CALCIUM 00 (two) Medical 500 + D) times Branch 500 daily with mg(1,250mg) meals. -400 unit tablet Calcium-Cho 2018-0 Yes 1{tbl} Take 1 Un dav[facility] lecalcifero 3-07 tablet by ity of l, D3, 00:00: mouth 2 [place] (CALCIUM 00 (two) Medical 500 + D) times Branch 500 daily with mg(1,250mg) meals. -400 unit tablet Calcium-Cho 2017-0 Yes 1{tbl} Take 1 Un [facility] lecalcifero 3-07 tablet by ity of l, D3, 00:00: mouth 2 [place] (CALCIUM 00 (two) Medical 500 + D) times Branch 500 daily with mg(1,250mg) meals. -400 unit tablet Calcium-Cho 2017- Yes 1{tbl} Take 1 Un dav[facility] lecalcifero 3-07 tablet by ity of l, D3, 00:00: mouth 2 [place] (CALCIUM 00 (two) Medical 500 + D) times Branch 500 daily with mg(1,250mg) meals. -400 unit tablet Calcium-Cho 2017- Yes 1{tbl} Take 1 Un dav[facility] lecalcifero 3-07 tablet by ity of l, D3, 00:00: mouth 2 [place] (CALCIUM 00 (two) Medical 500 + D) times Branch 500 daily with mg(1,250mg) meals. -400 unit tablet Calcium-Cho 2017-0 Yes 1{tbl} Take 1 Un dav[facility] lecalcifero 3-07 tablet by ity of l, D3, 00:00: mouth 2 [place] (CALCIUM 00 (two) Medical 500 + D) times Branch 500 daily with mg(1,250mg) meals. -400 unit tablet Calcium-Cho 2017-0 Yes 1{tbl} Take 1 Un dav[facility] lecalcifero 3-07 tablet by ity of l, D3, 00:00: mouth 2 [place] (CALCIUM 00 (two) Medical 500 + D) times Branch 500 daily with mg(1,250mg) meals. -400 unit tablet Calcium-Cho 2017- Yes 1{tbl} Take 1 Un dvaina lecalcifero 3-07 tablet by ity of l, D3, 00:00: mouth 2 [place] (CALCIUM 00 (two) Medical 500 + D) times Branch 500 daily with mg(1,250mg) meals. -400 unit tablet Calcium-Cho 2017-0 Yes 1{tbl} Take 1 Un dav[facility] lecalcifero 3-07 tablet by ity of l, D3, 00:00: mouth 2 [place] (CALCIUM 00 (two) Medical 500 + D) times Branch 500 daily with mg(1,250mg) meals. -400 unit tablet Calcium-Cho 2017-0 Yes 1{tbl} Take 1 Un dav[facility] lecalcifero 3-07 tablet by ity of l, D3, 00:00: mouth 2 [place] (CALCIUM 00 (two) Medical 500 + D) times Branch 500 daily with mg(1,250mg) meals. -400 unit tablet Calcium-Cho 2017- Yes 1{tbl} Take 1 Un davina lecalcifero 3-07 tablet by ity of l, D3, 00:00: mouth 2 [place] (CALCIUM 00 (two) Medical 500 + D) times Branch 500 daily with mg(1,250mg) meals. -400 unit tablet Calcium-Cho 2017- Yes 1{tbl} Take 1 Un davina lecalcifero 3-07 tablet by ity of l, D3, 00:00: mouth 2 [place] (CALCIUM 00 (two) Medical 500 + D) times Branch 500 daily with mg(1,250mg) meals. -400 unit tablet Calcium-Cho 2017- Yes 1{tbl} Take 1 Un dav[facility] lecalcifero 3-07 tablet by ity of l, D3, 00:00: mouth 2 [place] (CALCIUM 00 (two) Medical 500 + D) times Branch 500 daily with mg(1,250mg) meals. -400 unit tablet Calcium-Cho 2017- Yes 1{tbl} Take 1 Un dav[facility] lecalcifero 3-07 tablet by ity of l, D3, 00:00: mouth 2 [place] (CALCIUM 00 (two) Medical 500 + D) times Branch 500 daily with mg(1,250mg) meals. -400 unit tablet Calcium-Cho 2017- Yes 1{tbl} Take 1 Un dav[facility] lecalcifero 3-07 tablet by ity of l, D3, 00:00: mouth 2 [place] (CALCIUM 00 (two) Medical 500 + D) times Branch 500 daily with mg(1,250mg) meals. -400 unit tablet Calcium-Cho 2017-0 Yes 1{tbl} Take 1 Un dav[facility] lecalcifero 3-07 tablet by ity of l, D3, 00:00: mouth 2 [place] (CALCIUM 00 (two) Medical 500 + D) times Branch 500 daily with mg(1,250mg) meals. -400 unit tablet Calcium-Cho 2017-0 Yes 1{tbl} Take 1 Un dav[facility] lecalcifero 3-07 tablet by ity of l, D3, 00:00: mouth 2 [place] (CALCIUM 00 (two) Medical 500 + D) times Branch 500 daily with mg(1,250mg) meals. -400 unit tablet Calcium-Cho 2017-0 Yes 1{tbl} Take 1 Un [facility] lecalcifero 3-07 tablet by ity of l, D3, 00:00: mouth 2 [place] (CALCIUM 00 (two) Medical 500 + D) times Branch 500 daily with mg(1,250mg) meals. -400 unit tablet Calcium-Cho 2017- Yes 1{tbl} Take 1 Un dav[facility] lecalcifero 3-07 tablet by ity of l, D3, 00:00: mouth 2 [place] (CALCIUM 00 (two) Medical 500 + D) times Branch 500 daily with mg(1,250mg) meals. -400 unit tablet Calcium-Cho Yes 1{tbl} Take 1 Un dav[facility] lecalcifero 3-07 tablet by ity of l, D3, 00:00: mouth 2 [place] (CALCIUM 00 (two) Medical 500 + D) times Branch 500 daily with mg(1,250mg) meals. -400 unit tablet Calcium-Cho 2017-0 Yes 1{tbl} Take 1 Un dav[facility] lecalcifero 3-07 tablet by ity of l, D3, 00:00: mouth 2 [place] (CALCIUM 00 (two) Medical 500 + D) times Branch 500 daily with mg(1,250mg) meals. -400 unit tablet Calcium-Cho 2017- Yes 1{tbl} Take 1 Un dav[facility] lecalcifero 3-07 tablet by ity of l, D3, 00:00: mouth 2 [place] (CALCIUM 00 (two) Medical 500 + D) times Branch 500 daily with mg(1,250mg) meals. -400 unit tablet Calcium-Cho Yes 1{tbl} Take 1 Un davina lecalcifero 3-07 tablet by ity of l, D3, 00:00: mouth 2 [place] (CALCIUM 00 (two) Medical 500 + D) times Branch 500 daily with mg(1,250mg) meals. -400 unit tablet Calcium-Cho Yes 1{tbl} Take 1 Un dav[facility] lecalcifero 3-07 tablet by ity of l, D3, 00:00: mouth 2 [place] (CALCIUM 00 (two) Medical 500 + D) times Branch 500 daily with mg(1,250mg) meals. -400 unit tablet Calcium-Cho Yes 1{tbl} Take 1 Un davina lecalcifero 3-07 tablet by ity of l, D3, 00:00: mouth 2 [place] (CALCIUM 00 (two) Medical 500 + D) times Branch 500 daily with mg(1,250mg) meals. -400 unit tablet Calcium-Cho Yes 1{tbl} Take 1 Un dav[facility] lecalcifero 3-07 tablet by ity of l, D3, 00:00: mouth 2 [place] (CALCIUM 00 (two) Medical 500 + D) times Branch 500 daily with mg(1,250mg) meals. -400 unit tablet Calcium-Cho Yes 1{tbl} Take 1 Un davina lecalcifero 3-07 tablet by ity of l, D3, 00:00: mouth 2 [place] (CALCIUM 00 (two) Medical 500 + D) times Branch 500 daily with mg(1,250mg) meals. -400 unit tablet Morphine No Notes: Memoria 8-15 (Same l 15:42: as:MORPhin [place] 00 e Sulfate) Morphine No Notes: Memoria 8-15 (Same l 15:42: as:MORPhin [place] 00 e Sulfate) Morphine No Notes: Memoria 8-15 (Same l 15:42: as:MORPhin Jann 00 e Sulfate) Morphine No Notes: Memoria 8-15 (Same l 15:42: as:MORPhin [place]ann 00 e Sulfate) Morphine No Notes: Memoria 8-15 (Same l 15:42: as:MORPhin Jann 00 e Sulfate) Morphine No Notes: Memoria 8-15 (Same l 15:42: as:MORPhin [place] 00 e Sulfate) Morphine No Notes: Memoria 8-15 (Same l 15:42: as:MORPhin [place] 00 e Sulfate) Morphine No Notes: Memoria 8-15 (Same l 15:42: as:MORPhin [place] 00 e Sulfate) Morphine No Notes: Memoria 8-15 (Same l 15:42: as:MORPhin [place]ann 00 e Sulfate) Morphine No Notes: Memoria 8-15 (Same l 15:42: as:MORPhin [place]ann 00 e Sulfate) carvedilol No Notes: Memor ia 8-15 Give with l 14:00: food. [place] 00 (Same As: Coreg) valsartan No Notes: Memori a 8-15 Same as l 14:00: Diovan [place] 00 pantoprazol No Notes: Kishan hoang e 8-15 Tablet l 14:00: should not [place] 00 be chewed or crushed. (Same as: Protonix) Metoclopram No Notes: Kishan hoang gopal 5 MG 8-15 (Same as: l Oral Tablet 14:00: Reglan) Her negro 00 Take 30 min before meals heparin No Notes: Memoria 8-15 porcine l 14:00: heparin Jann 00 gabapentin No Notes: Memor ia 800 MG Oral 8-15 (Same as: l Tablet 14:00: Neurontin) Sherrell nn Folic Acid No Notes: Memor ia 8-15 (Same as: l 14:00: Folvite) [place] 00 carvedilol No Notes: Memor ia 8-15 Give with l 14:00: food. [place] 00 (Same As: Coreg) valsartan No Notes: Memori a 8-15 Same as l 14:00: Diovan [place] 00 pantoprazol No Notes: Kishan hoang e 8-15 Tablet l 14:00: should not [place] 00 be chewed or crushed. (Same as: Protonix) Metoclopram No Notes: Kishan hoang gopal 5 MG 8-15 (Same as: l Oral Tablet 14:00: Reglan) Her negro 00 Take 30 min before meals heparin No Notes: Memoria 8-15 porcine l 14:00: heparin Jann 00 gabapentin No Notes: Memor ia 800 MG Oral 8-15 (Same as: l Tablet 14:00: Neurontin) Sherrell nn Folic Acid No Notes: Memor ia 8-15 (Same as: l 14:00: Folvite) Jann carvedilol No Notes: Memor ia 8-15 Give with l 14:00: food. [place] 00 (Same As: Coreg) valsartan No Notes: Memori a 8-15 Same as l 14:00: Diovan Jann 00 pantoprazol No Notes: Kishan hoang e 8-15 Tablet l 14:00: should not [place] 00 be chewed or crushed. (Same as: Protonix) Metoclopram No Notes: Kishan hoang gopal 5 MG 8-15 (Same as: l Oral Tablet 14:00: Reglan) Her negro 00 Take 30 min before meals heparin No Notes: Memoria 8-15 porcine l 14:00: heparin Jann gabapentin No Notes: Memor ia 800 MG Oral 8-15 (Same as: l Tablet 14:00: Neurontin) [place] nn Folic Acid No Notes: Memor ia 8-15 (Same as: l 14:00: Folvite) Jann carvedilol No Notes: Memor ia 8-15 Give with l 14:00: food. Jann 00 (Same As: Coreg) valsartan No Notes: Memori a 8-15 Same as l 14:00: Diovan Jann 00 pantoprazol No Notes: Kishan hoang e 8-15 Tablet l 14:00: should not [place] 00 be chewed or crushed. (Same as: Protonix) Metoclopram No Notes: Kishan hoang gopal 5 MG 8-15 (Same as: l Oral Tablet 14:00: Reglan) Her negro 00 Take 30 min before meals heparin No Notes: Memoria 8-15 porcine l 14:00: heparin [place] 00 gabapentin No Notes: Memor ia 800 MG Oral 8-15 (Same as: l Tablet 14:00: Neurontin) Sherrell nn Folic Acid No Notes: Memor ia 8-15 (Same as: l 14:00: Folvite) [place] carvedilol No Notes: Memor ia 8-15 Give with l 14:00: food. [place] 00 (Same As: Coreg) valsartan No Notes: Memori a 8-15 Same as l 14:00: Diovan [place] pantoprazol No Notes: Kishan hoang e 8-15 Tablet l 14:00: should not Jann 00 be chewed or crushed. (Same as: Protonix) Metoclopram No Notes: Kishan hoang gopal 5 MG 8-15 (Same as: l Oral Tablet 14:00: Reglan) Her negro 00 Take 30 min before meals heparin No Notes: Memoria 8-15 porcine l 14:00: heparin Jann gabapentin No Notes: Memor ia 800 MG Oral 8-15 (Same as: l Tablet 14:00: Neurontin) Sherrell Folic Acid No Notes: Memor ia 8-15 (Same as: l 14:00: Folvite) Jann 00 carvedilol No Notes: Memor ia 8-15 Give with l 14:00: food. Jann 00 (Same As: Coreg) valsartan No Notes: Memori a 8-15 Same as l 14:00: Diovan [place] 00 pantoprazol No Notes: Kishan hoang e 8-15 Tablet l 14:00: should not Jann 00 be chewed or crushed. (Same as: Protonix) Metoclopram No Notes: Kishan hoang gopal 5 MG 8-15 (Same as: l Oral Tablet 14:00: Reglan) Her negro 00 Take 30 min before meals heparin No Notes: Memoria 8-15 porcine l 14:00: heparin Jann gabapentin No Notes: Memor ia 800 MG Oral 8-15 (Same as: l Tablet 14:00: Neurontin) Sherrell nn Folic Acid No Notes: Memor ia 8-15 (Same as: l 14:00: Folvite) [place] valsartan No Notes: Memori a 8-15 Same as l 14:00: Diovan Jann pantoprazol No Notes: Kishan hoang e 8-15 Tablet l 14:00: should not Jann 00 be chewed or crushed. (Same as: Protonix) Metoclopram No Notes: Kishan hoang gopal 5 MG 8-15 (Same as: l Oral Tablet 14:00: Reglan) Her negro 00 Take 30 min before meals heparin No Notes: Memoria 8-15 porcine l 14:00: heparin Jann carvedilol No Notes: Memor ia 8-15 Give with l 14:00: food. [place] 00 (Same As: Coreg) gabapentin No Notes: Memor ia 800 MG Oral 8-15 (Same as: l Tablet 14:00: Neurontin) Sherrell nn Folic Acid No Notes: Memor ia 8-15 (Same as: l 14:00: Folvite) Jann carvedilol No Notes: Memor ia 8-15 Give with l 14:00: food. Jann 00 (Same As: Coreg) valsartan No Notes: Memori a 8-15 Same as l 14:00: Diovan [place] pantoprazol No Notes: Kishan hoang e 8-15 Tablet l 14:00: should not [place] 00 be chewed or crushed. (Same as: Protonix) Metoclopram No Notes: Kishan hoang gopal 5 MG 8-15 (Same as: l Oral Tablet 14:00: Reglan) Her negro 00 Take 30 min before meals heparin No Notes: Memoria 8-15 porcine l 14:00: heparin Jann gabapentin No Notes: Memor ia 800 MG Oral 8-15 (Same as: l Tablet 14:00: Neurontin) [place] nn Folic Acid No Notes: Memor ia 8-15 (Same as: l 14:00: Folvite) [place] carvedilol No Notes: Memor ia 8-15 Give with l 14:00: food. Jann 00 (Same As: Coreg) valsartan No Notes: Memori a 8-15 Same as l 14:00: Diovan Jann 00 pantoprazol No Notes: Kishan hoang e 8-15 Tablet l 14:00: should not Jann 00 be chewed or crushed. (Same as: Protonix) Metoclopram No Notes: Kishan hoang gopal 5 MG 8-15 (Same as: l Oral Tablet 14:00: Reglan) Her negro 00 Take 30 min before meals heparin No Notes: Memoria 8-15 porcine l 14:00: heparin [place] gabapentin No Notes: Memor ia 800 MG Oral 8-15 (Same as: l Tablet 14:00: Neurontin) Sherrell nn Folic Acid No Notes: Memor ia 8-15 (Same as: l 14:00: Folvite) [place] valsartan No Notes: Memori a 8-15 Same as l 14:00: Diovan Jann 00 pantoprazol No Notes: Kishan hoang e 8-15 Tablet l 14:00: should not Jann 00 be chewed or crushed. (Same as: Protonix) Metoclopram No Notes: Kishan hoang gopal 5 MG 8-15 (Same as: l Oral Tablet 14:00: Reglan) Her negro 00 Take 30 min before meals heparin No Notes: Memoria 8-15 porcine l 14:00: heparin [place]ann 00 gabapentin No Notes: Memor ia 800 MG Oral 8-15 (Same as: l Tablet 14:00: Neurontin) Sherrell nn Folic Acid No Notes: Memor ia 8-15 (Same as: l 14:00: Folvite) [place] 00 carvedilol No Notes: Memor ia 8-15 Give with l 14:00: food. Jnan 00 (Same As: Coreg) Albuterol No Notes: Memori a 0.833 MG/ML 8-15 (Same as: l / 13:00: Duoneb) Jann Ipratropium 00 [place] 0.167 MG/ML Inhalant Solution Albuterol No Notes: Memori a 0.833 MG/ML 8-15 (Same as: l / 13:00: Duoneb) [place] Ipratropium 00 [place] 0.167 MG/ML Inhalant Solution Albuterol No Notes: Memori a 0.833 MG/ML 8-15 (Same as: : ) [place] Ipratropium 00 [place] 0.167 MG/ML Inhalant Solution Albuterol No Notes: Memori a 0.833 MG/ML 8-15 (Same as: : ) Jann Ipratropium 00 [place] 0.167 MG/ML Inhalant Solution Albuterol No Notes: Memori a 0.833 MG/ML 8-15 (Same as: : ) [place] Ipratropium 00 [place] 0.167 MG/ML Inhalant Solution Albuterol No Notes: Memori a 0.833 MG/ML 8-15 (Same as: : ) [place] Ipratropium 00 [place] 0.167 MG/ML Inhalant Solution Albuterol No Notes: Memori a 0.833 MG/ML 8-15 (Same as: : ) Jann Ipratropium 00 [place] 0.167 MG/ML Inhalant Solution Albuterol No Notes: Memori a 0.833 MG/ML 8-15 (Same as: : ) Jann Ipratropium 00 [place] 0.167 MG/ML Inhalant Solution Albuterol No Notes: Memori a 0.833 MG/ML 8-15 (Same as: : ) Jann Ipratropium 00 [place] 0.167 MG/ML Inhalant Solution Albuterol No Notes: Memori a 0.833 MG/ML 8-15 (Same as: : one) Jann Ipratropium 00 [place] 0.167 MG/ML Inhalant Solution Acetaminoph No Notes: Kishan hoang en 24 MG/ML 8-15 (acetamino l / Codeine 12:06: phen-codei He rmann Phosphate 00 ne 120-12 2.4 MG/ML mg/5 ml Oral oral liq) Solution Do not exceed 4gm/day of acetaminop hen. (Same as: Tylenol w/Codeine) Acetaminoph No Notes: Kishan hoang en 24 MG/ML 8-15 (acetamino l / Codeine 12:06: phen-codei He r[place] Phosphate 00 ne 120-12 2.4 MG/ML mg/5 ml Oral oral liq) Solution Do not exceed 4gm/day of acetaminop hen. (Same as: Tylenol w/Codeine) Acetaminoph No Notes: Kishan hoang en 24 MG/ML 8-15 (acetamino l / Codeine 12:06: phen-codei He rmann Phosphate 00 ne 120-12 2.4 MG/ML mg/5 ml Oral oral liq) Solution Do not exceed 4gm/day of acetaminop hen. (Same as: Tylenol w/Codeine) Acetaminoph No Notes: Kishan hoang en 24 MG/ML 8-15 (acetamino l / Codeine 12:06: phen-codei He rmann Phosphate 00 ne 120-12 2.4 MG/ML mg/5 ml Oral oral liq) Solution Do not exceed 4gm/day of acetaminop hen. (Same as: Tylenol w/Codeine) Acetaminoph No Notes: Kishan hoang en 24 MG/ML 8-15 (acetamino l / Codeine 12:06: phen-codei He rmann Phosphate 00 ne 120-12 2.4 MG/ML mg/5 ml Oral oral liq) Solution Do not exceed 4gm/day of acetaminop hen. (Same as: Tylenol w/Codeine) Acetaminoph No Notes: Kishan hoang en 24 MG/ML 8-15 (acetamino l / Codeine 12:06: phen-codei He rmann Phosphate 00 ne 120-12 2.4 MG/ML mg/5 ml Oral oral liq) Solution Do not exceed 4gm/day of acetaminop hen. (Same as: Tylenol w/Codeine) Acetaminoph No Notes: Kishan hoang en 24 MG/ML 8-15 (acetamino l / Codeine 12:06: phen-codei He rmann Phosphate 00 ne 120-12 2.4 MG/ML mg/5 ml Oral oral liq) Solution Do not exceed 4gm/day of acetaminop hen. (Same as: Tylenol w/Codeine) Acetaminoph No Notes: Kishan hoang en 24 MG/ML 8-15 (acetamino l / Codeine 12:06: phen-codei [place] r[place] Phosphate 00 ne 120-12 2.4 MG/ML mg/5 ml Oral oral liq) Solution Do not exceed 4gm/day of acetaminop hen. (Same as: Tylenol w/Codeine) Acetaminoph No Notes: Kishan hoang en 24 MG/ML 8-15 (acetamino l / Codeine 12:06: phen-codei He r[place] Phosphate 00 ne 120-12 2.4 MG/ML mg/5 ml Oral oral liq) Solution Do not exceed 4gm/day of acetaminop hen. (Same as: Tylenol w/Codeine) Acetaminoph No Notes: Kishan hoang en 24 MG/ML 8-15 (acetamino l / Codeine 12:06: phen-codei He r[place] Phosphate 00 ne 120-12 2.4 MG/ML mg/5 ml Oral oral liq) Solution Do not exceed 4gm/day of acetaminop hen. (Same as: Tylenol w/Codeine) Thyroxine No Notes: Memori a 8-15 Take 1 l 11:30: hour Jann 00 before or 2 hours after meal; Enteral feeds may interefere with the absorption of this medication . (Same as: Levothroid ) Thyroxine No Notes: Memori a 8-15 Take 1 l 11:30: hour Jann 00 before or 2 hours after meal; Enteral feeds may interefere with the absorption of this medication . (Same as: Levothroid ) Thyroxine No Notes: Memori a 8-15 Take 1 l 11:30: hour [place] 00 before or 2 hours after meal; Enteral feeds may interefere with the absorption of this medication . (Same as: Levothroid ) Thyroxine No Notes: Memori a 8-15 Take 1 l 11:30: hour [place] 00 before or 2 hours after meal; Enteral feeds may interefere with the absorption of this medication . (Same as: Levothroid ) Thyroxine No Notes: Memori a 8-15 Take 1 l 11:30: hour [place] 00 before or 2 hours after meal; Enteral feeds may interefere with the absorption of this medication . (Same as: Levothroid ) Thyroxine No Notes: Memori a 8-15 Take 1 l 11:30: hour [place] 00 before or 2 hours after meal; Enteral feeds may interefere with the absorption of this medication . (Same as: Levothroid ) Thyroxine No Notes: Memori a 8-15 Take 1 l 11:30: hour Jann 00 before or 2 hours after meal; Enteral feeds may interefere with the absorption of this medication . (Same as: Levothroid ) Thyroxine No Notes: Memori a 8-15 Take 1 l 11:30: hour [place] 00 before or 2 hours after meal; Enteral feeds may interefere with the absorption of this medication . (Same as: Levothroid ) Thyroxine No Notes: Memori a 8-15 Take 1 l 11:30: hour [place] 00 before or 2 hours after meal; Enteral feeds may interefere with the absorption of this medication . (Same as: Levothroid ) Thyroxine No Notes: Memori a 8-15 Take 1 l 11:30: hour [place]ann 00 before or 2 hours after meal; Enteral feeds may interefere with the absorption of this medication . (Same as: Levothroid ) Hydralazine No Notes: Kishan hoang Hydrochlori 8-15 (Same as: l de 25 MG 10:10: Apresoline Her negro Oral Tablet 00 ) May interfere w/enteral feedings Take With Food. Hydralazine No Notes: Kishan hoang Hydrochlori 8-15 (Same as: l de 25 MG 10:10: Apresoline Her negro Oral Tablet 00 ) May interfere w/enteral feedings Take With Food. Hydralazine No Notes: Kishan hoang Hydrochlori 8-15 (Same as: l de 25 MG 10:10: Apresoline Her negro Oral Tablet 00 ) May interfere w/enteral feedings Take With Food. Hydralazine No Notes: Kishan hoang Hydrochlori 8-15 (Same as: l de 25 MG 10:10: Apresoline Her negro Oral Tablet 00 ) May interfere w/enteral feedings Take With Food. Hydralazine No Notes: Kishan hoang Hydrochlori 8-15 (Same as: l de 25 MG 10:10: Apresoline Her negro Oral Tablet 00 ) May interfere w/enteral feedings Take With Food. Hydralazine No Notes: Kishan hoang Hydrochlori 8-15 (Same as: l de 25 MG 10:10: Apresoline Her negro Oral Tablet 00 ) May interfere w/enteral feedings Take With Food. Hydralazine No Notes: Kishan hoang Hydrochlori 8-15 (Same as: l de 25 MG 10:10: Apresoline Her negro Oral Tablet 00 ) May interfere w/enteral feedings Take With Food. Hydralazine No Notes: Kishan hoang Hydrochlori 8-15 (Same as: l de 25 MG 10:10: Apresoline Her negro Oral Tablet 00 ) May interfere w/enteral feedings Take With Food. Hydralazine No Notes: Kishan hoang Hydrochlori 8-15 (Same as: l de 25 MG 10:10: Apresoline Her negro Oral Tablet 00 ) May interfere w/enteral feedings Take With Food. Hydralazine No Notes: Kishan hoang Hydrochlori 8-15 (Same as: l de 25 MG 10:10: Apresoline Her negro Oral Tablet 00 ) May interfere w/enteral feedings Take With Food. Cefoxitin No Notes: Memori a 8-15 (Same As: l 02:00: Mefoxin) [place] 00 MEDICATION WASTE Product Size: 2000 mg Product Wasted: ___ mg rosuvastati No Notes: Kishan hoang n 8-15 Same as l 02:00: Crestor [place] 00 Cefoxitin No Notes: Memori a 8-15 (Same As: l 02:00: Mefoxin) [place] 00 MEDICATION WASTE Product Size: 2000 mg Product Wasted: ___ mg rosuvastati No Notes: Kishan hoang n 8-15 Same as l 02:00: Crestor [place] 00 Cefoxitin No Notes: Memori a 8-15 (Same As: l 02:00: Mefoxin) [place]ann 00 MEDICATION WASTE Product Size: 2000 mg Product Wasted: ___ mg rosuvastati 2017-0 No Notes: Kishan hoang n 8-15 Same as l 02:00: Crestor [place]ann Cefoxitin 2016-0 No Notes: Memori a 8-15 (Same As: l 02:00: Mefoxin) [place] 00 MEDICATION WASTE Product Size: 2000 mg Product Wasted: ___ mg rosuvastati 2017-0 No Notes: Kishan hoang n 8-15 Same as l 02:00: Crestor Jann Cefoxitin No Notes: Memori a 815 (Same As: l 02:00: Mefoxin) [place] 00 MEDICATION WASTE Product Size: 2000 mg Product Wasted: ___ mg rosuvastati 2017-0 No Notes: Kishan hoang n 8-15 Same as l 02:00: Crestor [place] 00 Cefoxitin No Notes: Memori a 815 (Same As: 02:00: Mefoxin) [place] 00 MEDICATION WASTE Product Size: 2000 mg Product Wasted: ___ mg rosuvastati 2017-0 No Notes: Kishan hoang n 8-15 Same as l 02:00: Crestor [place] 00 Cefoxitin 2016- No Notes: Memori a 8-15 (Same As: l 02:00: Mefoxin) [place] 00 MEDICATION WASTE Product Size: 2000 mg Product Wasted: ___ mg rosuvastati 2017-0 No Notes: Kishan hoang n 8-15 Same as l 02:00: Crestor [place] Cefoxitin 2016-0 No Notes: Memori a 8-15 (Same As: l 02:00: Mefoxin) [place] 00 MEDICATION WASTE Product Size: 2000 mg Product Wasted: ___ mg rosuvastati 2017-0 No Notes: Kishna hoang n 8-15 Same as l 02:00: Crestor [place] Cefoxitin 2016-0 No Notes: Memori a 8-15 (Same As: l 02:00: Mefoxin) [place] 00 MEDICATION WASTE Product Size: 2000 mg Product Wasted: ___ mg rosuvastati 2017-0 No Notes: Kishan hoang n 8-15 Same as l 02:00: Crestor [place] 00 Cefoxitin No Notes: Memori a 8-15 (Same As: l 02:00: Mefoxin) [place] 00 MEDICATION WASTE Product Size: 2000 mg Product Wasted: ___ mg rosuvastati No Notes: Kishan hoang n 8-15 Same as l 02:00: Crestor [place] 00 Morphine No Notes: Memoria 8-15 (Same l 00:56: as:MORPhin [place] 00 e Sulfate) Morphine No Notes: Memoria 8-15 (Same l 00:56: as:MORPhin [place] 00 e Sulfate) Morphine No Notes: Memoria 8-15 (Same l 00:56: as:MORPhin [place] 00 e Sulfate) Morphine No Notes: Memoria 8-15 (Same l 00:56: as:MORPhin [place] 00 e Sulfate) Morphine No Notes: Memoria 8-15 (Same l 00:56: as:MORPhin [place] 00 e Sulfate) Morphine No Notes: Memoria 8-15 (Same l 00:56: as:MORPhin [place] 00 e Sulfate) Morphine No Notes: Memoria 8-15 (Same l 00:56: as:MORPhin [place] 00 e Sulfate) Morphine No Notes: Memoria 8-15 (Same l 00:56: as:MORPhin [place] 00 e Sulfate) Morphine No Notes: Memoria 8-15 (Same l 00:56: as:MORPhin [place] 00 e Sulfate) Morphine No Notes: Memoria 8-15 (Same l 00:56: as:MORPhin [place] 00 e Sulfate) D5W 1/2NS No 1,000 mL, Mem oria 1,000 mL 8-15 Rate: 75 l 00:55: ml/hr, [place] 00 Infuse over: 13.3 hr, Route: IV, Dosing Weight 107.273 kg, Total Volume: 1,000, Start date: 12/04/16 19:55:00 CDT, Duration: 30 day, Stop date: 01/03/17 19:54:00 CDT D5W 1/2NS 2017-0 No 1,000 mL, Mem oria 1,000 mL 8-15 Rate: 75 l 00:55: ml/hr, Jann 00 Infuse over: 13.3 hr, Route: IV, Dosing Weight 107.273 kg, Total Volume: 1,000, Start date: 12/04/16 19:55:00 CDT, Duration: 30 day, Stop date: 01/03/17 19:54:00 CDT D5W 2NS 2017-0 No 1,000 mL, Mem oria 1,000 mL 8-15 Rate: 75 l 00:55: ml/hr, [place] 00 Infuse over: 13.3 hr, Route: IV, Dosing Weight 107.273 kg, Total Volume: 1,000, Start date: 12/04/16 19:55:00 CDT, Duration: 30 day, Stop date: 01/03/17 19:54:00 CDT D5W 2NS 2017-0 No 1,000 mL, Mem oria 1,000 mL 8-15 Rate: 75 l 00:55: ml/hr, [place] 00 Infuse over: 13.3 hr, Route: IV, Dosing Weight 107.273 kg, Total Volume: 1,000, Start date: 12/04/16 19:55:00 CDT, Duration: 30 day, Stop date: 01/03/17 19:54:00 CDT D5W 2NS 2017-0 No 1,000 mL, Mem oria 1,000 mL 8-15 Rate: 75 l 00:55: ml/hr, [place]ann 00 Infuse over: 13.3 hr, Route: IV, Dosing Weight 107.273 kg, Total Volume: 1,000, Start date: 12/04/16 19:55:00 CDT, Duration: 30 day, Stop date: 01/03/17 19:54:00 CDT D5W 2NS 2017-0 No 1,000 mL, Mem oria 1,000 mL 8-15 Rate: 75 l 00:55: ml/hr, Jann 00 Infuse over: 13.3 hr, Route: IV, Dosing Weight 107.273 kg, Total Volume: 1,000, Start date: 12/04/16 19:55:00 CDT, Duration: 30 day, Stop date: 01/03/17 19:54:00 CDT D5W 1/2NS 2017-0 No 1,000 mL, Mem oria 1,000 mL 8-15 Rate: 75 l 00:55: ml/hr, Jann 00 Infuse over: 13.3 hr, Route: IV, Dosing Weight 107.273 kg, Total Volume: 1,000, Start date: 12/04/16 19:55:00 CDT, Duration: 30 day, Stop date: 01/03/17 19:54:00 CDT D5W 2NS 2017-0 No 1,000 mL, Mem oria 1,000 mL 8-15 Rate: 75 l 00:55: ml/hr, [place] 00 Infuse over: 13.3 hr, Route: IV, Dosing Weight 107.273 kg, Total Volume: 1,000, Start date: 12/04/16 19:55:00 CDT, Duration: 30 day, Stop date: 01/03/17 19:54:00 CDT D5W 2NS 2017-0 No 1,000 mL, Mem oria 1,000 mL 8-15 Rate: 75 l 00:55: ml/hr, Jann 00 Infuse over: 13.3 hr, Route: IV, Dosing Weight 107.273 kg, Total Volume: 1,000, Start date: 12/04/16 19:55:00 CDT, Duration: 30 day, Stop date: 01/03/17 19:54:00 CDT D5W /2NS 2017-0 No 1,000 mL, Mem oria 1,000 mL 8-15 Rate: 75 l 00:55: ml/hr, [place] 00 Infuse over: 13.3 hr, Route: IV, Dosing Weight 107.273 kg, Total Volume: 1,000, Start date: 12/04/16 19:55:00 CDT, Duration: 30 day, Stop date: 01/03/17 19:54:00 CDT Dextrose 2017-0 No 25 gm, 50 Kishan hoang 50% Syringe 8-14 mL, Route: l 23:14: IVP, Drug Form: INJ, Dosing Weight 107.273, kg, Q4H, PRN Other -See Comment, Start date: 12/04/16 18:14:00 CDT, Duration: 30 day, Stop date: 01/03/17 18:13:00 CDT Dextrose 2017-0 No 25 gm, 50 Kishan hoang 50% Syringe 8-14 mL, Route: l 23:14: IVP, Drug [place] 00 Form: INJ, Dosing Weight 107.273, kg, Q4H, PRN Other -See Comment, Start date: 12/04/16 18:14:00 CDT, Duration: 30 day, Stop date: 01/03/17 18:13:00 CDT Dextrose 2017-0 No 25 gm, 50 Kishan hoang 50% Syringe 8-14 mL, Route: l 23:14: IVP, Drug Jann 00 Form: INJ, Dosing Weight 107.273, kg, Q4H, PRN Other -See Comment, Start date: 12/04/16 18:14:00 CDT, Duration: 30 day, Stop date: 01/03/17 18:13:00 CDT Dextrose 2017-0 No 25 gm, 50 Kishan hoang 50% Syringe 8-14 mL, Route: l 23:14: IVP, Drug Jann 00 Form: INJ, Dosing Weight 107.273, kg, Q4H, PRN Other -See Comment, Start date: 12/04/16 18:14:00 CDT, Duration: 30 day, Stop date: 01/03/17 18:13:00 CDT Dextrose 2017-0 No 25 gm, 50 Kishan hoang 50% Syringe 8-14 mL, Route: l 23:14: IVP, Drug [place] 00 Form: INJ, Dosing Weight 107.273, kg, Q4H, PRN Other -See Comment, Start date: 12/04/16 18:14:00 CDT, Duration: 30 day, Stop date: 01/03/17 18:13:00 CDT Dextrose 2017-0 No 25 gm, 50 Kishan hoang 50% Syringe 8-14 mL, Route: l 23:14: IVP, Drug [place] 00 Form: INJ, Dosing Weight 107.273, kg, Q4H, PRN Other -See Comment, Start date: 12/04/16 18:14:00 CDT, Duration: 30 day, Stop date: 01/03/17 18:13:00 CDT Dextrose 2017-0 No 25 gm, 50 Kishan hoang 50% Syringe 8-14 mL, Route: l 23:14: IVP, Drug Jann 00 Form: INJ, Dosing Weight 107.273, kg, Q4H, PRN Other -See Comment, Start date: 12/04/16 18:14:00 CDT, Duration: 30 day, Stop date: 01/03/17 18:13:00 CDT Dextrose 2017-0 No 25 gm, 50 Kishan hoang 50% Syringe 8-14 mL, Route: l 23:14: IVP, Drug [place] 00 Form: INJ, Dosing Weight 107.273, kg, Q4H, PRN Other -See Comment, Start date: 12/04/16 18:14:00 CDT, Duration: 30 day, Stop date: 01/03/17 18:13:00 CDT Dextrose 2017-0 No 25 gm, 50 Kishan hoang 50% Syringe 8-14 mL, Route: l 23:14: IVP, Drug [place] 00 Form: INJ, Dosing Weight 107.273, kg, Q4H, PRN Other -See Comment, Start date: 12/04/16 18:14:00 CDT, Duration: 30 day, Stop date: 01/03/17 18:13:00 CDT Dextrose 2017-0 No 25 gm, 50 Kishan hoang 50% Syringe 8-14 mL, Route: l 23:14: IVP, Drug [place] 00 Form: INJ, Dosing Weight 107.273, kg, Q4H, PRN Other -See Comment, Start date: 12/04/16 18:14:00 CDT, Duration: 30 day, Stop date: 01/03/17 18:13:00 CDT sodium 2017-0 No 1,000 mL, Memori a chloride 8-14 Rate: 75 l 0.9% 1000 23:04: ml/hr, [place] n ml INJ 00 Infuse 1,000 mL over: 13.3 hr, Route: IV, Dosing Weight 106.563 kg, Total Volume: 1,000, Start date: 12/04/16 18:04:00 CDT, Duration: 30 day, Stop date: 01/03/17 18:03:00 CDT sodium 2017-0 No 1,000 mL, Memori a chloride 8-14 Rate: 75 l 0.9% 1000 23:04: ml/hr, [place] n ml INJ 00 Infuse 1,000 mL over: 13.3 hr, Route: IV, Dosing Weight 106.563 kg, Total Volume: 1,000, Start date: 12/04/16 18:04:00 CDT, Duration: 30 day, Stop date: 01/03/17 18:03:00 CDT sodium 2017-0 No 1,000 mL, Memori a chloride 8-14 Rate: 75 l 0.9% 1000 23:04: ml/hr, [place] ml INJ 00 Infuse 1,000 mL over: 13.3 hr, Route: IV, Dosing Weight 106.563 kg, Total Volume: 1,000, Start date: 12/04/16 18:04:00 CDT, Duration: 30 day, Stop date: 01/03/17 18:03:00 CDT sodium 2017-0 No 1,000 mL, Memori a chloride 8-14 Rate: 75 l 0.9% 1000 23:04: ml/hr, [place] ml INJ 00 Infuse 1,000 mL over: 13.3 hr, Route: IV, Dosing Weight 106.563 kg, Total Volume: 1,000, Start date: 12/04/16 18:04:00 CDT, Duration: 30 day, Stop date: 01/03/17 18:03:00 CDT sodium 2017-0 No 1,000 mL, Memori a chloride 8-14 Rate: 75 l 0.9% 1000 23:04: ml/hr, [place] ml INJ 00 Infuse 1,000 mL over: 13.3 hr, Route: IV, Dosing Weight 106.563 kg, Total Volume: 1,000, Start date: 12/04/16 18:04:00 CDT, Duration: 30 day, Stop date: 01/03/17 18:03:00 CDT sodium 2017-0 No 1,000 mL, Memori a chloride 8-14 Rate: 75 l 0.9% 1000 23:04: ml/hr, [place] ml INJ 00 Infuse 1,000 mL over: 13.3 hr, Route: IV, Dosing Weight 106.563 kg, Total Volume: 1,000, Start date: 12/04/16 18:04:00 CDT, Duration: 30 day, Stop date: 01/03/17 18:03:00 CDT sodium 2017-0 No 1,000 mL, Memori a chloride 8-14 Rate: 75 l 0.9% 1000 23:04: ml/hr, [place] ml INJ 00 Infuse 1,000 mL over: 13.3 hr, Route: IV, Dosing Weight 106.563 kg, Total Volume: 1,000, Start date: 12/04/16 18:04:00 CDT, Duration: 30 day, Stop date: 01/03/17 18:03:00 CDT sodium 2017-0 No 1,000 mL, Memori a chloride 8-14 Rate: 75 l 0.9% 1000 23:04: ml/hr, [place] ml INJ 00 Infuse 1,000 mL over: 13.3 hr, Route: IV, Dosing Weight 106.563 kg, Total Volume: 1,000, Start date: 12/04/16 18:04:00 CDT, Duration: 30 day, Stop date: 01/03/17 18:03:00 CDT sodium 2017-0 No 1,000 mL, Memori a chloride 8-14 Rate: 75 l 0.9% 1000 23:04: ml/hr, [place] ml INJ 00 Infuse 1,000 mL over: 13.3 hr, Route: IV, Dosing Weight 106.563 kg, Total Volume: 1,000, Start date: 12/04/16 18:04:00 CDT, Duration: 30 day, Stop date: 01/03/17 18:03:00 CDT sodium 2017-0 No 1,000 mL, Memori a chloride 8-14 Rate: 75 l 0.9% 1000 23:04: ml/hr, [place] ml INJ 00 Infuse 1,000 mL over: 13.3 hr, Route: IV, Dosing Weight 106.563 kg, Total Volume: 1,000, Start date: 12/04/16 18:04:00 CDT, Duration: 30 day, Stop date: 01/03/17 18:03:00 CDT Magnesium 2017-0 No Notes: Memori a Sulfate 8-14 WASTE: F/P l 21:45: - Sink; E [place] 00 - [employer] Trash Bin Magnesium 2017-0 No Notes: Memori a Sulfate 8-14 WASTE: F/P l 21:45: - Sink; E [place] 00 - [employer] Trash Bin Magnesium No Notes: Memori a Sulfate 8-14 WASTE: F/P l 21:45: - Sink; E [place] 00 - [facility] Trash Bin Magnesium No Notes: Memori a Sulfate 8-14 WASTE: F/P l 21:45: - Sink; E [place] 00 - [facility] Trash Bin Magnesium No Notes: Memori a Sulfate 8-14 WASTE: F/P l 21:45: - Sink; E [place] 00 - [facility] Trash Bin Magnesium No Notes: Memori a Sulfate 8-14 WASTE: F/P l 21:45: - Sink; E [place] 00 - [facility] Trash Bin Magnesium No Notes: Memori a Sulfate 8-14 WASTE: F/P l 21:45: - Sink; E [place] 00 - [facility] Trash Bin Magnesium No Notes: Memori a Sulfate 8-14 WASTE: F/P l 21:45: - Sink; E [place] 00 - [facility] Trash Bin Magnesium No Notes: Memori a Sulfate 8-14 WASTE: F/P l 21:45: - Sink; E [place] 00 - [facility] Trash Bin Magnesium No Notes: Memori a Sulfate 8-14 WASTE: F/P l 21:45: - Sink; E [place] 00 - [facility] Trash Bin Morphine No Notes: Memoria 8-14 (Same l 21:42: as:MORPhin [place] 00 e Sulfate) Morphine No Notes: Memoria 8-14 (Same l 21:42: as:MORPhin [place] 00 e Sulfate) Morphine No Notes: Memoria 8-14 (Same l 21:42: as:MORPhin [place] 00 e Sulfate) Morphine No Notes: Memoria 8-14 (Same l 21:42: as:MORPhin [place] 00 e Sulfate) Morphine No Notes: Memoria 8-14 (Same l 21:42: as:MORPhin [place] 00 e Sulfate) Morphine No Notes: Memoria 8-14 (Same l 21:42: as:MORPhin [place] 00 e Sulfate) Morphine No Notes: Memoria 8-14 (Same l 21:42: as:MORPhin [place] 00 e Sulfate) Morphine No Notes: Memoria 8-14 (Same l 21:42: as:MORPhin [place] 00 e Sulfate) Morphine No Notes: Memoria 8-14 (Same l 21:42: as:MORPhin [place] 00 e Sulfate) Morphine No Notes: Memoria 8-14 (Same l 21:42: as:MORPhin [place] 00 e Sulfate) midazolam No Route: IV, Me moria (ANES) 8-14 Drug form: l 20:32: SOLN, Jann 00 ONCE, Stop date: 12/04/16 15:32:00 CDT midazolam No Route: IV, Me moria (ANES) 8-14 Drug form: l 20:32: SOLN, [place] 00 ONCE, Stop date: 12/04/16 15:32:00 CDT midazolam No Route: IV, Me moria (ANES) 8-14 Drug form: l 20:32: SOLN, Jann 00 ONCE, Stop date: 12/04/16 15:32:00 CDT midazolam No Route: IV, Me moria (ANES) 8-14 Drug form: l 20:32: SOLN, [place] 00 ONCE, Stop date: 12/04/16 15:32:00 CDT midazolam 0 No Route: IV, Me moria (ANES) 8-14 Drug form: l 20:32: SOLN, [place] 00 ONCE, Stop date: 12/04/16 15:32:00 CDT midazolam 0 No Route: IV, Me moria (ANES) 8-14 Drug form: l 20:32: SOLN, Jann 00 ONCE, Stop date: 12/04/16 15:32:00 CDT midazolam 0 No Route: IV, Me moria (ANES) 8-14 Drug form: l 20:32: SOLN, [place] 00 ONCE, Stop date: 12/04/16 15:32:00 CDT midazolam 0 No Route: IV, Me moria (ANES) 8-14 Drug form: l 20:32: SOLN, [place] 00 ONCE, Stop date: 12/04/16 15:32:00 CDT midazolam 0 No Route: IV, Me moria (ANES) 8-14 Drug form: l 20:32: SOLN, [place] ONCE, Stop date: 12/04/16 15:32:00 CDT midazolam 2017-0 No Route: IV, Me moria (ANES) 12-04 Drug form: l 20:32: SOLN, Jann 00 ONCE, Stop date: 12/04/16 15:32:00 CDT hydromorpho 0 No Route: IV, Memoria ne (ANES) 12-04 Drug form: l 20:11: INJ, ONCE, Stop date: 12/04/16 15:11:00 CDT glycopyrrol No Route: IV, Memoria ate (ANES) 12-04 Drug form: l 20:11: INJ, ONCE, Stop date: 12/04/16 15:11:00 CDT neostigmine No Route: IV, Memoria (ANES) 12-04 Drug form: l 20:11: INJ, ONCE, Stop date: 12/04/16 15:11:00 CDT hydromorpho 0 No Route: IV, Memoria ne (ANES) 12-04 Drug form: l 20:11: INJ, ONCE, Stop date: 12/04/16 15:11:00 CDT glycopyrrol 2016-0 No Route: IV, Memoria ate (ANES) 12-04 Drug form: l 20:11: INJ, ONCE, Stop date: 12/04/16 15:11:00 CDT neostigmine 0 No Route: IV, Memoria (ANES) 12-04 Drug form: l 20:11: INJ, ONCE, Stop date: 12/04/16 15:11:00 CDT hydromorpho 0 No Route: IV, Memoria ne (ANES) 12-04 Drug form: l 20:11: INJ, ONCE, Stop date: 12/04/16 15:11:00 CDT glycopyrrol 2016-0 No Route: IV, Memoria ate (ANES) 12-04 Drug form: l 20:11: INJ, ONCE, Stop date: 12/04/16 15:11:00 CDT neostigmine 2016-0 No Route: IV, Memoria (ANES) 12-04 Drug form: l 20:11: INJ, ONCE, Stop date: 12/04/16 15:11:00 CDT hydromorpho No Route: IV, Memoria ne (ANES) 12-04 Drug form: l 20:11: INJ, ONCE, Stop date: 12/04/16 15:11:00 CDT glycopyrrol 0 No Route: IV, Memoria ate (ANES) 12-04 Drug form: l 20:11: INJ, ONCE, Stop date: 12/04/16 15:11:00 CDT neostigmine No Route: IV, Memoria (ANES) 12-04 Drug form: l 20:11: INJ, ONCE, Stop date: 12/04/16 15:11:00 CDT hydromorpho No Route: IV, Memoria ne (ANES) 12-04 Drug form: l 20:11: INJ, ONCE, Stop date: 12/04/16 15:11:00 CDT glycopyrrol 0 No Route: IV, Memoria ate (ANES) 12-04 Drug form: l 20:11: INJ, ONCE, Stop date: 12/04/16 15:11:00 CDT neostigmine 0 No Route: IV, Memoria (ANES) 12-04 Drug form: l 20:11: INJ, ONCE, Stop date: 12/04/16 15:11:00 CDT hydromorpho 0 No Route: IV, Memoria ne (ANES) 12-04 Drug form: l 20:11: INJ, ONCE, Stop date: 12/04/16 15:11:00 CDT glycopyrrol 0 No Route: IV, Memoria ate (ANES) 12-04 Drug form: l 20:11: INJ, ONCE, Stop date: 12/04/16 15:11:00 CDT neostigmine [id number] No Route: IV, Memoria (ANES) 12-04 Drug form: l 20:11: INJ, ONCE, Stop date: 12/04/16 15:11:00 CDT hydromorpho No Route: IV, Memoria ne (ANES) 12-04 Drug form: l 20:11: INJ, ONCE, Stop date: 12/04/16 15:11:00 CDT glycopyrrol No Route: IV, Memoria ate (ANES) 12-04 Drug form: l 20:11: INJ, ONCE, Stop date: 12/04/16 15:11:00 CDT neostigmine 2017 No Route: IV, Memoria (ANES) 12-04 Drug form: l 20:11: INJ, ONCE, Stop date: 12/04/16 15:11:00 CDT hydromorpho No Route: IV, Memoria ne (ANES) 12-04 Drug form: l 20:11: INJ, ONCE, Stop date: 12/04/16 15:11:00 CDT glycopyrrol No Route: IV, Memoria ate (ANES) 12-04 Drug form: l 20:11: INJ, ONCE, Stop date: 12/04/16 15:11:00 CDT neostigmine 0 No Route: IV, Memoria (ANES) 12-04 Drug form: l 20:11: INJ, ONCE, Stop date: 12/04/16 15:11:00 CDT hydromorpho No Route: IV, Memoria ne (ANES) 12-04 Drug form: l 20:11: INJ, ONCE, Stop date: 12/04/16 15:11:00 CDT glycopyrrol 0 No Route: IV, Memoria ate (ANES) 12-04 Drug form: l 20:11: INJ, ONCE, Stop date: 12/04/16 15:11:00 CDT neostigmine [id number] No Route: IV, [facility]oria (ANES) 12-04 Drug form: l 20:11: INJ, ONCE, Stop date: 12/04/16 15:11:00 CDT hydromorpho 0 No Route: IV, Memoria ne (ANES) 12-04 Drug form: l 20:11: INJ, ONCE, Stop date: 12/04/16 15:11:00 CDT glycopyrrol No Route: IV, Memoria ate (ANES) 12-04 Drug form: l 20:11: INJ, ONCE, Stop date: 12/04/16 15:11:00 CDT neostigmine No Route: IV, Memoria (ANES) 12-04 Drug form: l 20:11: INJ, ONCE, Stop date: 12/04/16 15:11:00 CDT acetaminoph No Route: IV, Memoria en (ANES) 12-04 Drug form: l 19:51: INJ, ONCE, Stop date: 12/04/16 14:51:00 CDT acetaminoph No Route: IV, Memoria en (ANES) 12-04 Drug form: l 19:51: INJ, ONCE, Stop date: 12/04/16 14:51:00 CDT acetaminoph No Route: IV, Memoria en (ANES) 12-04 Drug form: l 19:51: INJ, ONCE, Stop date: 12/04/16 14:51:00 CDT acetaminoph No Route: IV, Memoria en (ANES) 12-04 Drug form: l 19:51: INJ, ONCE, Stop date: 12/04/16 14:51:00 CDT acetaminoph No Route: IV, Memoria en (ANES) 12-04 Drug form: l 19:51: INJ, ONCE, Stop date: 12/04/16 14:51:00 CDT acetaminoph No Route: IV, Memoria en (ANES) 12-04 Drug form: l 19:51: INJ, ONCE, Stop date: 12/04/16 14:51:00 CDT acetaminoph No Route: IV, Memoria en (ANES) 12-04 Drug form: l 19:51: INJ, ONCE, Stop date: 12/04/16 14:51:00 CDT acetaminoph No Route: IV, Memoria en (ANES) 12-04 Drug form: l 19:51: INJ, ONCE, Jann 00 Stop date: 12/04/16 14:51:00 CDT acetaminoph No Route: IV, Memoria en (ANES) 12-04 Drug form: l 19:51: INJ, ONCE, Jann 00 Stop date: 12/04/16 14:51:00 CDT acetaminoph No Route: IV, Memoria en (ANES) 12-04 Drug form: l 19:51: INJ, ONCE, [place] 00 Stop date: 12/04/16 14:51:00 CDT Albuterol 2016-0 No 3 mL, Memoria 0.833 MG/ML 12-04 Route: l / 19:26: NEB, [place] Ipratropium 00 Dosing [place] Weight 0.167 MG/ML 106.563, Inhalant kg, ONCE, Solution STAT, Start date: 12/04/16 14:26:00 CDT, Stop date: 12/04/16 14:26:00 CDT Calcium 2016-0 No 1,000 mL, Memor ia Chloride 12-04 Rate: 25 l 0.0014 19:26: ml/hr, [place] MEQ/ML / 00 Infuse Potassium over: 40 Chloride hr, Route: 0.004 IV, Dosing MEQ/ML / Weight Sodium 106.563 Chloride kg, Total 0.103 Volume: MEQ/ML / 1,000, Sodium Start Lactate date: 0.028 12/04/16 MEQ/ML 14:26:00 Injectable CDT, Solution Duration: 30 day, Stop date: 01/03/17 14:25:00 CDT Albuterol 2016-0 No 3 mL, Memoria 0.833 MG/ML 12-04 Route: l / 19:26: NEB, [place] Ipratropium 00 Dosing [place] Weight 0.167 MG/ML 106.563, Inhalant kg, ONCE, Solution STAT, Start date: 12/04/16 14:26:00 CDT, Stop date: 12/04/16 14:26:00 CDT Calcium 2017-0 No 1,000 mL, Memor ia Chloride 12-04 Rate: 25 l 0.0014 19:26: ml/hr, Jann MEQ/ML / 00 Infuse Potassium over: 40 Chloride hr, Route: 0.004 IV, Dosing MEQ/ML / Weight Sodium 106.563 Chloride kg, Total 0.103 Volume: MEQ/ML / 1,000, Sodium Start Lactate date: 0.028 12/04/16 MEQ/ML 14:26:00 Injectable CDT, Solution Duration: 30 day, Stop date: 01/03/17 14:25:00 CDT Albuterol 2017-0 No 3 mL, Memoria 0.833 MG/ML 12-04 Route: l :26: NEB, Jann Ipratropium 00 Dosing [place] Weight 0.167 MG/ML 106.563, Inhalant kg, ONCE, Solution STAT, Start date: 12/04/16 14:26:00 CDT, Stop date: 12/04/16 14::00 CDT Calcium 2017-0 No 1,000 mL, Memor ia Chloride 12-04 Rate: 25 l 0.0014 19:26: ml/hr, [place] MEQ/ML / 00 Infuse Potassium over: 40 Chloride hr, Route: 0.004 IV, Dosing MEQ/ML / Weight Sodium 106.563 Chloride kg, Total 0.103 Volume: MEQ/ML / 1,000, Sodium Start Lactate date: 0.028 12/04/16 MEQ/ML ::00 Injectable CDT, Solution Duration: 30 day, Stop date: 01/03/17 14:25:00 CDT Albuterol 2017-0 No 3 mL, Memoria 0.833 MG/ML 12-04 Route: :26: NEB, Jann Ipratropium 00 Dosing [place] Weight 0.167 MG/ML 106.563, Inhalant kg, ONCE, Solution STAT, Start date: 12/04/16 14:26:00 CDT, Stop date: 12/04/16 14:26:00 CDT Calcium 2017-0 No 1,000 mL, Memor ia Chloride 12-04 Rate: 25 l 0.0014 19:26: ml/hr, [place] MEQ/ML / 00 Infuse Potassium over: 40 Chloride hr, Route: 0.004 IV, Dosing MEQ/ML / Weight Sodium 106.563 Chloride kg, Total 0.103 Volume: MEQ/ML / 1,000, Sodium Start Lactate date: 0.028 12/04/16 MEQ/ML 14:26:00 Injectable CDT, Solution Duration: 30 day, Stop date: 01/03/17 14:25:00 CDT Albuterol 2017-0 No 3 mL, Memoria 0.833 MG/ML 12-04 Route: l / :26: NEB, Jann Ipratropium 00 Dosing [place] Weight 0.167 MG/ML 106.563, Inhalant kg, ONCE, Solution STAT, Start date: 12/04/16 14:26:00 CDT, Stop date: 12/04/16 14:26:00 CDT Calcium 2017-0 No 1,000 mL, Memor ia Chloride 12-04 Rate: 25 l 0.0014 19:26: ml/hr, [place] MEQ/ML / 00 Infuse Potassium over: 40 Chloride hr, Route: 0.004 IV, Dosing MEQ/ML / Weight Sodium 106.563 Chloride kg, Total 0.103 Volume: MEQ/ML / 1,000, Sodium Start Lactate date: 0.028 12/04/16 MEQ/ML ::00 Injectable CDT, Solution Duration: 30 day, Stop date: 01/03/17 14:25:00 CDT Albuterol 2017-0 No 3 mL, Memoria 0.833 MG/ML 12-04 Route: l :26: NEB, Jann Ipratropium 00 Dosing [place] Weight 0.167 MG/ML 106.563, Inhalant kg, ONCE, Solution STAT, Start date: 12/04/16 14:26:00 CDT, Stop date: 12/04/16 14::00 CDT Calcium 2017-0 No 1,000 mL, Memor ia Chloride 12-04 Rate: 25 l 0.0014 19:26: ml/hr, Jann MEQ/ML / 00 Infuse Potassium over: 40 Chloride hr, Route: 0.004 IV, Dosing MEQ/ML / Weight Sodium 106.563 Chloride kg, Total 0.103 Volume: MEQ/ML / 1,000, Sodium Start Lactate date: 0.028 12/04/16 MEQ/ML 14:26:00 Injectable CDT, Solution Duration: 30 day, Stop date: 01/03/17 14:25:00 CDT Albuterol 2017-0 No 3 mL, Memoria 0.833 MG/ML 12-04 Route: l 19:26: NEB, Jann Ipratropium 00 Dosing [place] Weight 0.167 MG/ML 106.563, Inhalant kg, ONCE, Solution STAT, Start date: 12/04/16 14:26:00 CDT, Stop date: 12/04/16 14::00 CDT Calcium 2017-0 No 1,000 mL, Memor ia Chloride 12-04 Rate: 25 l 0.0014 19:26: ml/hr, [place] MEQ/ML / 00 Infuse Potassium over: 40 Chloride hr, Route: 0.004 IV, Dosing MEQ/ML / Weight Sodium 106.563 Chloride kg, Total 0.103 Volume: MEQ/ML / 1,000, Sodium Start Lactate date: 0.028 12/04/16 MEQ/ML ::00 Injectable CDT, Solution Duration: 30 day, Stop date: 01/03/17 14:25:00 CDT Albuterol 2017-0 No 3 mL, Memoria 0.833 MG/ML 12-04 Route: :: NEB, [place] Ipratropium 00 Dosing [place] Weight 0.167 MG/ML 106.563, Inhalant kg, ONCE, Solution STAT, Start date: 12/04/16 14:26:00 CDT, Stop date: 12/04/16 14::00 CDT Calcium 2017-0 No 1,000 mL, Memor ia Chloride 12-04 Rate: 25 l 0.0014 19:26: ml/hr, [place] MEQ/ML / 00 Infuse Potassium over: 40 Chloride hr, Route: 0.004 IV, Dosing MEQ/ML / Weight Sodium 106.563 Chloride kg, Total 0.103 Volume: MEQ/ML / 1,000, Sodium Start Lactate date: 0.028 12/04/16 MEQ/ML 14::00 Injectable CDT, Solution Duration: 30 day, Stop date: 01/03/17 14:25:00 CDT Albuterol 2017-0 No 3 mL, Memoria 0.833 MG/ML 12-04 Route: l :26: NEB, [place] Ipratropium 00 Dosing [place] Weight 0.167 MG/ML 106.563, Inhalant kg, ONCE, Solution STAT, Start date: 12/04/16 14:26:00 CDT, Stop date: 12/04/16 14:26:00 CDT Calcium 2016-0 No 1,000 mL, Memor ia Chloride 12-04 Rate: 25 l 0.0014 19:26: ml/hr, Jann MEQ/ML / 00 Infuse Potassium over: 40 Chloride hr, Route: 0.004 IV, Dosing MEQ/ML / Weight Sodium 106.563 Chloride kg, Total 0.103 Volume: MEQ/ML / 1,000, Sodium Start Lactate date: 0.028 12/04/16 MEQ/ML 14:26:00 Injectable CDT, Solution Duration: 30 day, Stop date: 01/03/17 14:25:00 CDT Albuterol 2016- No 3 mL, Memoria 0.833 MG/ML 12-04 Route: l / 19:26: NEB, [place] Ipratropium 00 Dosing [place] Weight 0.167 MG/ML 106.563, Inhalant kg, ONCE, Solution STAT, Start date: 12/04/16 14:26:00 CDT, Stop date: 12/04/16 14:26:00 CDT Calcium 2016-0 No 1,000 mL, Memor ia Chloride 12-04 Rate: 25 l 0.0014 19:26: ml/hr, [place] MEQ/ML / 00 Infuse Potassium over: 40 Chloride hr, Route: 0.004 IV, Dosing MEQ/ML / Weight Sodium 106.563 Chloride kg, Total 0.103 Volume: MEQ/ML / 1,000, Sodium Start Lactate date: 0.028 12/04/16 MEQ/ML 14:26:00 Injectable CDT, Solution Duration: 30 day, Stop date: 01/03/17 14:25:00 CDT metoclopram No Route: IV, Memoria gopal (ANES) 12-04 Drug form: l 18:37: INJ, ONCE, Jann 00 Stop date: 12/04/16 13:37:00 CDT propofol No Route: IV, Mem oria (ANES) 12-04 Drug form: l 18:37: INJ, ONCE, Jann 00 Stop date: 12/04/16 13:37:00 CDT fentaNYL No Route: IV, Mem oria (ANES) 12-04 Drug form: l 18:37: INJ, ONCE, [place] 00 Stop date: 12/04/16 13:37:00 CDT midazolam 2017-0 No Route: IV, Me moria (ANES) 8-14 Drug form: l 18:37: SOLN, Jann ONCE, Stop date: 12/04/16 13:37:00 CDT metoclopram 2017-0 No Route: IV, Memoria gopal (ANES) 8-14 Drug form: l 18:37: INJ, ONCE, Jann 00 Stop date: 12/04/16 13:37:00 CDT propofol 2017-0 No Route: IV, Mem oria (ANES) 8-14 Drug form: l 18:37: INJ, ONCE, Jann 00 Stop date: 12/04/16 13:37:00 CDT fentaNYL 2017-0 No Route: IV, Mem oria (ANES) 8-14 Drug form: l 18:37: INJ, ONCE, Jann 00 Stop date: 12/04/16 13:37:00 CDT midazolam 2017-0 No Route: IV, Me moria (ANES) 8-14 Drug form: l 18:37: SOLN, Jnan ONCE, Stop date: 12/04/16 13:37:00 CDT metoclopram 2017-0 No Route: IV, Memoria gopal (ANES) 8-14 Drug form: l 18:37: INJ, ONCE, Jann 00 Stop date: 12/04/16 13:37:00 CDT propofol 2017-0 No Route: IV, Mem oria (ANES) 8-14 Drug form: l 18:37: INJ, ONCE, [place] 00 Stop date: 12/04/16 13:37:00 CDT fentaNYL 2017-0 No Route: IV, Mem oria (ANES) 8-14 Drug form: l 18:37: INJ, ONCE, [place] 00 Stop date: 12/04/16 13:37:00 CDT midazolam 2017-0 No Route: IV, Me moria (ANES) 8-14 Drug form: l 18:37: SOLN, [place] ONCE, Stop date: 12/04/16 13:37:00 CDT metoclopram 2017-0 No Route: IV, Memoria gopal (ANES) 8-14 Drug form: l 18:37: INJ, ONCE, Jann 00 Stop date: 12/04/16 13:37:00 CDT propofol 2017-0 No Route: IV, Mem oria (ANES) 8-14 Drug form: l 18:37: INJ, ONCE, Jann 00 Stop date: 12/04/16 13:37:00 CDT fentaNYL 2017-0 No Route: IV, Mem oria (ANES) 8-14 Drug form: l 18:37: INJ, ONCE, Jann 00 Stop date: 12/04/16 13:37:00 CDT midazolam 2017-0 No Route: IV, Me moria (ANES) 8-14 Drug form: l 18:37: SOLN, [place] ONCE, Stop date: 12/04/16 13:37:00 CDT metoclopram 2017-0 No Route: IV, Memoria gopal (ANES) 8-14 Drug form: l 18:37: INJ, ONCE, Stop date: 12/04/16 13:37:00 CDT propofol 2017-0 No Route: IV, Mem oria (ANES) 8-14 Drug form: l 18:37: INJ, ONCE, Stop date: 12/04/16 13:37:00 CDT fentaNYL 2017-0 No Route: IV, Mem oria (ANES) 8-14 Drug form: l 18:37: INJ, ONCE, Stop date: 12/04/16 13:37:00 CDT midazolam 2017-0 No Route: IV, Me moria (ANES) 8-14 Drug form: l 18:37: SOLN, [place] ONCE, Stop date: 12/04/16 13:37:00 CDT metoclopram 2017-0 No Route: IV, Memoria gopal (ANES) 8-14 Drug form: l 18:37: INJ, ONCE, Jann 00 Stop date: 12/04/16 13:37:00 CDT propofol 2017-0 No Route: IV, Mem oria (ANES) 8-14 Drug form: l 18:37: INJ, ONCE, [place] 00 Stop date: 12/04/16 13:37:00 CDT fentaNYL 2017-0 No Route: IV, Mem oria (ANES) 8-14 Drug form: l 18:37: INJ, ONCE, [place] 00 Stop date: 12/04/16 13:37:00 CDT midazolam 2017-0 No Route: IV, Me moria (ANES) 8-14 Drug form: l 18:37: SOLN, Jann 00 ONCE, Stop date: 12/04/16 13:37:00 CDT metoclopram 2017-0 No Route: IV, Memoria gopal (ANES) 8-14 Drug form: l 18:37: INJ, ONCE, [place] 00 Stop date: 12/04/16 13:37:00 CDT propofol 2017-0 No Route: IV, Mem oria (ANES) 8-14 Drug form: l 18:37: INJ, ONCE, [place] 00 Stop date: 12/04/16 13:37:00 CDT fentaNYL 2017-0 No Route: IV, Mem oria (ANES) 8-14 Drug form: l 18:37: INJ, ONCE, Jann 00 Stop date: 12/04/16 13:37:00 CDT midazolam 2017-0 No Route: IV, Me moria (ANES) 8-14 Drug form: l 18:37: SOLN, [place] ONCE, Stop date: 12/04/16 13:37:00 CDT metoclopram 2017-0 No Route: IV, Memoria gopal (ANES) 8-14 Drug form: l 18:37: INJ, ONCE, [place] 00 Stop date: 12/04/16 13:37:00 CDT propofol 2017-0 No Route: IV, Mem oria (ANES) 8-14 Drug form: l 18:37: INJ, ONCE, [place] 00 Stop date: 12/04/16 13:37:00 CDT fentaNYL 2017-0 No Route: IV, Mem oria (ANES) 8-14 Drug form: l 18:37: INJ, ONCE, [place] 00 Stop date: 12/04/16 13:37:00 CDT midazolam 2017-0 No Route: IV, Me moria (ANES) 8-14 Drug form: l 18:37: SOLN, [place] 00 ONCE, Stop date: 12/04/16 13:37:00 CDT metoclopram 2017-0 No Route: IV, Memoria gopal (ANES) 8-14 Drug form: l 18:37: INJ, ONCE, Jann 00 Stop date: 12/04/16 13:37:00 CDT propofol 2017-0 No Route: IV, Mem oria (ANES) 8- Drug form: l 18:37: INJ, ONCE, Jann Stop date: 12/04/16 13:37:00 CDT fentaNYL 2017-0 No Route: IV, Mem oria (ANES) 8- Drug form: l 18:37: INJ, ONCE, [place] Stop date: 12/04/16 13:37:00 CDT midazolam 2017-0 No Route: IV, Me moria (ANES) 8- Drug form: l 18:37: SOLN, Jann 00 ONCE, Stop date: 12/04/16 13:37:00 CDT metoclopram 2017-0 No Route: IV, Memoria gopal (ANES) 8- Drug form: l 18:37: INJ, ONCE, [place] 00 Stop date: 12/04/16 13:37:00 CDT propofol 2016-0 No Route: IV, Mem oria (ANES) 8- Drug form: l 18:37: INJ, ONCE, Jann 00 Stop date: 12/04/16 13:37:00 CDT fentaNYL 0 No Route: IV, Mem oria (ANES) 8- Drug form: l 18:37: INJ, ONCE, Jann 00 Stop date: 12/04/16 13:37:00 CDT midazolam 2017-0 No Route: IV, Me moria (ANES) 8- Drug form: l 18:37: SOLN, [place] ONCE, Stop date: 12/04/16 13:37:00 CDT ondansetron 20170 No Route: IV, Memoria (ANES) 8-14 Drug form: l 18:01: INJ, ONCE, Jann 00 Stop date: 12/04/16 13:01:00 CDT cefOXitin 2017-0 No Route: IV, Me moria (ANES) 8-14 Drug form: l 18:01: INJ, ONCE, [place] Stop date: 12/04/16 13:01:00 CDT lidocaine 2017-0 No Route: IV, Me moria (ANES) 8-14 Drug form: l 18:01: INJ, ONCE, [place] 00 Stop date: 12/04/16 13:01:00 CDT rocuronium 2017-0 No Route: IV, M emoria (ANES) 8- Drug form: l 18:01: INJ, ONCE, [place] 00 Stop date: 12/04/16 13:01:00 CDT ondansetron 2017-0 No Route: IV, Memoria (ANES) 8- Drug form: l 18:01: INJ, ONCE, Jann 00 Stop date: 12/04/16 13:01:00 CDT cefOXitin 2017-0 No Route: IV, Me moria (ANES) 8- Drug form: l 18:01: INJ, ONCE, Jann 00 Stop date: 12/04/16 13:01:00 CDT lidocaine 2017-0 No Route: IV, Me moria (ANES) 8- Drug form: l 18:01: INJ, ONCE, [place] 00 Stop date: 12/04/16 13:01:00 CDT rocuronium 2017-0 No Route: IV, M emoria (ANES) 8- Drug form: l 18:01: INJ, ONCE, Jann 00 Stop date: 12/04/16 13:01:00 CDT ondansetron 2017-0 No Route: IV, Memoria (ANES) 8 Drug form: l 18:01: INJ, ONCE, [place] 00 Stop date: 12/04/16 13:01:00 CDT cefOXitin 2017-0 No Route: IV, Me moria (ANES) 8- Drug form: l 18:01: INJ, ONCE, [place] 00 Stop date: 12/04/16 13:01:00 CDT lidocaine 2017-0 No Route: IV, Me moria (ANES) 8- Drug form: l 18:01: INJ, ONCE, [place] 00 Stop date: 12/04/16 13:01:00 CDT rocuronium 2017-0 No Route: IV, M emoria (ANES) 8- Drug form: l 18:01: INJ, ONCE, Jann 00 Stop date: 12/04/16 13:01:00 CDT ondansetron 2017-0 No Route: IV, Memoria (ANES) 8- Drug form: l 18:01: INJ, ONCE, Jann 00 Stop date: 12/04/16 13:01:00 CDT cefOXitin 2017-0 No Route: IV, Me moria (ANES) 8- Drug form: l 18:01: INJ, ONCE, Jann 00 Stop date: 12/04/16 13:01:00 CDT lidocaine 2017-0 No Route: IV, Me moria (ANES) 8- Drug form: l 18:01: INJ, ONCE, Stop date: 12/04/16 13:01:00 CDT rocuronium 2017-0 No Route: IV, M emoria (ANES) 8- Drug form: l 18:01: INJ, ONCE, [place] 00 Stop date: 12/04/16 13:01:00 CDT ondansetron 2017-0 No Route: IV, Memoria (ANES) 8 Drug form: l 18:01: INJ, ONCE, Stop date: 12/04/16 13:01:00 CDT cefOXitin 2017-0 No Route: IV, Me moria (ANES) 8- Drug form: l 18:01: INJ, ONCE, Stop date: 12/04/16 13:01:00 CDT lidocaine 2017-0 No Route: IV, Me moria (ANES) 8- Drug form: l 18:01: INJ, ONCE, Stop date: 12/04/16 13:01:00 CDT rocuronium 2017-0 No Route: IV, M emoria (ANES) 8- Drug form: l 18:01: INJ, ONCE, Stop date: 12/04/16 13:01:00 CDT ondansetron 2017-0 No Route: IV, Memoria (ANES) 8- Drug form: l 18:01: INJ, ONCE, Jann 00 Stop date: 12/04/16 13:01:00 CDT cefOXitin 2017-0 No Route: IV, Me moria (ANES) 8- Drug form: l 18:01: INJ, ONCE, Jann 00 Stop date: 12/04/16 13:01:00 CDT lidocaine 2017-0 No Route: IV, Me moria (ANES) 8- Drug form: l 18:01: INJ, ONCE, Jann 00 Stop date: 12/04/16 13:01:00 CDT rocuronium 2017-0 No Route: IV, M emoria (ANES) 8-14 Drug form: l 18:01: INJ, ONCE, Jann 00 Stop date: 12/04/16 13:01:00 CDT ondansetron 2017-0 No Route: IV, Memoria (ANES) 8- Drug form: l 18:01: INJ, ONCE, [place] 00 Stop date: 12/04/16 13:01:00 CDT cefOXitin 2017-0 No Route: IV, Me moria (ANES) 8- Drug form: l 18:01: INJ, ONCE, Jann 00 Stop date: 12/04/16 13:01:00 CDT lidocaine 2017-0 No Route: IV, Me moria (ANES) 8- Drug form: l 18:01: INJ, ONCE, Jann 00 Stop date: 12/04/16 13:01:00 CDT rocuronium 2017-0 No Route: IV, M emoria (ANES) 8- Drug form: l 18:01: INJ, ONCE, Stop date: 12/04/16 13:01:00 CDT ondansetron 2017-0 No Route: IV, Memoria (ANES) 8- Drug form: l 18:01: INJ, ONCE, [place] 00 Stop date: 12/04/16 13:01:00 CDT cefOXitin 2017-0 No Route: IV, Me moria (ANES) 8-14 Drug form: l 18:01: INJ, ONCE, Jann 00 Stop date: 12/04/16 13:01:00 CDT ondansetron 2017-0 No Route: IV, Memoria (ANES) 8-14 Drug form: l 18:01: INJ, ONCE, Jann 00 Stop date: 12/04/16 13:01:00 CDT cefOXitin 2017-0 No Route: IV, Me moria (ANES) 8-14 Drug form: l 18:01: INJ, ONCE, Jann 00 Stop date: 12/04/16 13:01:00 CDT lidocaine 2017-0 No Route: IV, Me moria (ANES) 8-14 Drug form: l 18:01: INJ, ONCE, Stop date: 12/04/16 13:01:00 CDT rocuronium 2017-0 No Route: IV, Anival emoria (ANES) 8- Drug form: l 18:01: INJ, ONCE, Stop date: 12/04/16 13:01:00 CDT lidocaine 2017-0 No Route: IV, moria (ANES) 8- Drug form: l 18:01: INJ, ONCE, Stop date: 12/04/16 13:01:00 CDT rocuronium 2017-0 No Route: IV, Anival emoria (ANES) 8- Drug form: l 18:01: INJ, ONCE, Stop date: 12/04/16 13:01:00 CDT ondansetron 2017-0 No Route: IV, Memoria (ANES) 12-04 Drug form: l 18:01: INJ, ONCE, Stop date: 12/04/16 13:01:00 CDT cefOXitin 2017-0 No Route: IV, moria (ANES) 8 Drug form: l 18:01: INJ, ONCE, Stop date: 12/04/16 13:01:00 CDT lidocaine 2017-0 No Route: IV, moria (ANES) 8 Drug form: l 18:01: INJ, ONCE, Stop date: 12/04/16 13:01:00 CDT rocuronium 2017-0 No Route: IV, Anival emoria (ANES) 8 Drug form: l 18:01: INJ, ONCE, Stop date: 12/04/16 13:01:00 CDT sodium 2017-0 No Route: IV, Memor ia chloride 8-14 Total l 0.9% 1000 17:40: Volume: Sherrell nn ml INJ 00 1,000, (ANES) Start date: 12/04/16 12:40:00 CDT, Stop date: 12/04/16 13:40:00 CDT sodium 2017-0 No Route: IV, Memor ia chloride - Total l 0.9% 1000 17:40: Volume: [place] nn ml INJ 00 1,000, (ANES) Start date: 12/04/16 12:40:00 CDT, Stop date: 12/04/16 13:40:00 CDT sodium 2017-0 No Route: IV, Memor ia chloride 8-14 Total l 0.9% 1000 17:40: Volume: [place] nn ml INJ 00 1,000, (ANES) Start date: 12/04/16 12:40:00 CDT, Stop date: 12/04/16 13:40:00 CDT sodium 2017-0 No Route: IV, Memor ia chloride 8-14 Total l 0.9% 1000 17:40: Volume: [place] nn ml INJ 00 1,000, (ANES) Start date: 12/04/16 12:40:00 CDT, Stop date: 12/04/16 13:40:00 CDT sodium 2017-0 No Route: IV, Memor ia chloride 8-14 Total l 0.9% 1000 17:40: Volume: [place] nn ml INJ 00 1,000, (ANES) Start date: 12/04/16 12:40:00 CDT, Stop date: 12/04/16 13:40:00 CDT sodium 2017-0 No Route: IV, Memor ia chloride 8-14 Total l 0.9% 1000 17:40: Volume: [place] nn ml INJ 00 1,000, (ANES) Start date: 12/04/16 12:40:00 CDT, Stop date: 12/04/16 13:40:00 CDT sodium 2017-0 No Route: IV, Memor ia chloride 8-14 Total l 0.9% 1000 17:40: Volume: [place] nn ml INJ 00 1,000, (ANES) Start date: 12/04/16 12:40:00 CDT, Stop date: 12/04/16 13:40:00 CDT sodium 2017-0 No Route: IV, Memor ia chloride 8-14 Total l 0.9% 1000 17:40: Volume: [place] nn ml INJ 00 1,000, (ANES) Start date: 12/04/16 12:40:00 CDT, Stop date: 12/04/16 13:40:00 CDT sodium 2017-0 No Route: IV, Memor ia chloride 8-14 Total l 0.9% 1000 17:40: Volume: [place] nn ml INJ 00 1,000, (ANES) Start date: 12/04/16 12:40:00 CDT, Stop date: 12/04/16 13:40:00 CDT sodium No Route: IV, Memor ia chloride 8-14 Total l 0.9% 1000 17:40: Volume: [place] nn ml INJ 00 1,000, (ANES) Start date: 12/04/16 12:40:00 CDT, Stop date: 12/04/16 13:40:00 CDT LR 1000 mL No Route: IV, M emoria INJ (ANES) 8-14 Total l 17:26: Volume: Jann 00 1,000, Start date: 12/04/16 12:26:00 CDT, Stop date: 12/04/16 13:26:00 CDT LR 1000 mL No Route: IV, M emoria INJ (ANES) 8-14 Total l 17:26: Volume: [place] 00 1,000, Start date: 12/04/16 12:26:00 CDT, Stop date: 12/04/16 13:26:00 CDT LR 1000 mL No Route: IV, M emoria INJ (ANES) 8-14 Total l 17:26: Volume: [place] 00 1,000, Start date: 12/04/16 12:26:00 CDT, Stop date: 12/04/16 13:26:00 CDT LR 1000 mL No Route: IV, M emoria INJ (ANES) 8-14 Total l 17:26: Volume: [place] 00 1,000, Start date: 12/04/16 12:26:00 CDT, Stop date: 12/04/16 13:26:00 CDT LR 1000 mL No Route: IV, M emoria INJ (ANES) 8-14 Total l 17:26: Volume: [place] 00 1,000, Start date: 12/04/16 12:26:00 CDT, Stop date: 12/04/16 13:26:00 CDT LR 1000 mL No Route: IV, M emoria INJ (ANES) 8-14 Total l 17:26: Volume: Jann 00 1,000, Start date: 12/04/16 12:26:00 CDT, Stop date: 12/04/16 13:26:00 CDT LR 1000 mL No Route: IV, M emoria INJ (ANES) 8-14 Total l 17:26: Volume: [place] 00 1,000, Start date: 12/04/16 12:26:00 CDT, Stop date: 12/04/16 13:26:00 CDT LR 1000 mL No Route: IV, M emoria INJ (ANES) 8-14 Total l 17:26: Volume: [place] 00 1,000, Start date: 12/04/16 12:26:00 CDT, Stop date: 12/04/16 13:26:00 CDT LR 1000 mL No Route: IV, M emoria INJ (ANES) 8-14 Total l 17:26: Volume: [place] 00 1,000, Start date: 12/04/16 12:26:00 CDT, Stop date: 12/04/16 13:26:00 CDT LR 1000 mL No Route: IV, M emoria INJ (ANES) 8-14 Total l 17:26: Volume: [place] 00 1,000, Start date: 12/04/16 12:26:00 CDT, Stop date: 12/04/16 13:26:00 CDT Insulin 2017-0 No 5 unit, Memoria regular 12-04 Route: l 16:56: IVP, ONCE, Dosing Weight 106.563, kg, Start date: 12/04/16 11:56:00 CDT, Stop date: 12/04/16 11:56:00 CDT Insulin 2017-0 No 5 unit, Memoria regular 12-04 Route: l 16:56: IVP, ONCE, Dosing Weight 106.563, kg, Start date: 12/04/16 11:56:00 CDT, Stop date: 12/04/16 11:56:00 CDT Insulin 2017-0 No 5 unit, Memoria regular 12-04 Route: l 16:56: IVP, ONCE, Dosing Weight 106.563, kg, Start date: 12/04/16 11:56:00 CDT, Stop date: 12/04/16 11:56:00 CDT Insulin 2017-0 No 5 unit, Memoria regular 8-14 Route: l 16:56: IVP, ONCE, [place] 00 Dosing Weight 106.563, kg, Start date: 12/04/16 11:56:00 CDT, Stop date: 12/04/16 11:56:00 CDT Insulin 2017-0 No 5 unit, [facility] regular 8-14 Route: l 16:56: IVP, ONCE, Jann 00 Dosing Weight 106.563, kg, Start date: 12/04/16 11:56:00 CDT, Stop date: 12/04/16 11:56:00 CDT Insulin 2017-0 No 5 unit, [facility] regular 8-14 Route: l 16:56: IVP, ONCE, Jann 00 Dosing Weight 106.563, kg, Start date: 12/04/16 11:56:00 CDT, Stop date: 12/04/16 11:56:00 CDT Insulin 2017-0 No 5 unit, [facility] regular 8-14 Route: l 16:56: IVP, ONCE, [place] 00 Dosing Weight 106.563, kg, Start date: 12/04/16 11:56:00 CDT, Stop date: 12/04/16 11:56:00 CDT Insulin 2017-0 No 5 unit, [facility] regular 8-14 Route: l 16:56: IVP, ONCE, [place] 00 Dosing Weight 106.563, kg, Start date: 12/04/16 11:56:00 CDT, Stop date: 12/04/16 11:56:00 CDT Insulin 2017-0 No 5 unit, [facility] regular 8-14 Route: l 16:56: IVP, ONCE, [place] 00 Dosing Weight 106.563, kg, Start date: 12/04/16 11:56:00 CDT, Stop date: 12/04/16 11:56:00 CDT Insulin 2017-0 No 5 unit, [facility] regular 8-14 Route: l 16:56: IVP, ONCE, Jann 00 Dosing Weight 106.563, kg, Start date: 12/04/16 11:56:00 CDT, Stop date: 12/04/16 11:56:00 CDT Insulin 2017-0 No 5 unit, [facility] regular 8-14 Route: l 16:19: IVP, ONCE, Jann Dosing Weight 106.563, kg, Start date: 12/04/16 11:19:00 CDT, Stop date: 12/04/16 11:19:00 CDT Insulin 2017-0 No 5 unit, [facility] regular 8-14 Route: l 16:19: IVP, ONCE, [place] 00 Dosing Weight 106.563, kg, Start date: 12/04/16 11:19:00 CDT, Stop date: 12/04/16 11:19:00 CDT Insulin 2017-0 No 5 unit, [facility] regular 8-14 Route: l 16:19: IVP, ONCE, [place] 00 Dosing Weight 106.563, kg, Start date: 12/04/16 11:19:00 CDT, Stop date: 12/04/16 11:19:00 CDT Insulin 2017-0 No 5 unit, [facility] regular 8-14 Route: l 16:19: IVP, ONCE, [place] 00 Dosing Weight 106.563, kg, Start date: 12/04/16 11:19:00 CDT, Stop date: 12/04/16 11:19:00 CDT Insulin 2017-0 No 5 unit, [facility] regular 8-14 Route: l 16:19: IVP, ONCE, [place] 00 Dosing Weight 106.563, kg, Start date: 12/04/16 11:19:00 CDT, Stop date: 12/04/16 11:19:00 CDT Insulin 2017-0 No 5 unit, [facility] regular 8-14 Route: l 16:19: IVP, ONCE, [place] 00 Dosing Weight 106.563, kg, Start date: 12/04/16 11:19:00 CDT, Stop date: 12/04/16 11:19:00 CDT Insulin 2017-0 No 5 unit, [facility] regular 8-14 Route: l 16:19: IVP, ONCE, [place] 00 Dosing Weight 106.563, kg, Start date: 12/04/16 11:19:00 CDT, Stop date: 12/04/16 11:19:00 CDT Insulin 2017-0 No 5 unit, [facility] regular 8-14 Route: l 16:19: IVP, ONCE, Jann Dosing Weight 106.563, kg, Start date: 12/04/16 11:19:00 CDT, Stop date: 12/04/16 11:19:00 CDT Insulin 2017-0 No 5 unit, [facility] regular 8-14 Route: l 16:19: IVP, ONCE, J[place] 00 Dosing Weight 106.563, kg, Start date: 12/04/16 11:19:00 CDT, Stop date: 12/04/16 11:19:00 CDT Insulin 2017-0 No 5 unit, [facility] regular 8-14 Route: l 16:19: IVP, ONCE, [place] 00 Dosing Weight 106.563, kg, Start date: 12/04/16 11:19:00 CDT, Stop date: 12/04/16 11:19:00 CDT heparin 2017-0 No 5,000 [facility] sodium, 8-14 unit, l porcine 16:00: Route: [place] 2500 UNT/ML 00 SUB-Q, Injectable Drug form: Solution INJ, PRE OP, Dosing Weight 106.563, kg, Start date: 12/04/16 11:00:00 CDT heparin 2017-0 No 5,000 [facility] sodium, 8-14 unit, l porcine 16:00: Route: [place] 2500 UNT/ML 00 SUB-Q, Injectable Drug form: Solution INJ, PRE OP, Dosing Weight 106.563, kg, Start date: 12/04/16 11:00:00 CDT heparin 2017-0 No 5,000 [facility] sodium, 8-14 unit, l porcine 16:00: Route: [place] 2500 UNT/ML 00 SUB-Q, Injectable Drug form: Solution INJ, PRE OP, Dosing Weight 106.563, kg, Start date: 12/04/16 11:00:00 CDT heparin 2017-0 No 5,000 [facility] sodium, 8-14 unit, l porcine 16:00: Route: [facility] 2500 UNT/ML 00 SUB-Q, Injectable Drug form: Solution INJ, PRE OP, Dosing Weight 106.563, kg, Start date: 12/04/16 11:00:00 CDT heparin 2017-0 No 5,000 [facility] sodium, 8-14 unit, l porcine 16:00: Route: [place] 2500 UNT/ML 00 SUB-Q, Injectable Drug form: Solution INJ, PRE OP, Dosing Weight 106.563, kg, Start date: 12/04/16 11:00:00 CDT heparin 2017-0 No 5,000 [facility] sodium, 8-14 unit, l porcine 16:00: Route: [place] 2500 UNT/ML 00 SUB-Q, Injectable Drug form: Solution INJ, PRE OP, Dosing Weight 106.563, kg, Start date: 12/04/16 11:00:00 CDT heparin 2017-0 No 5,000 Memoria sodium, 8-14 unit, l porcine 16:00: Route: [place] 2500 UNT/ML 00 SUB-Q, Injectable Drug form: Solution INJ, PRE OP, Dosing Weight 106.563, kg, Start date: 12/04/16 11:00:00 CDT heparin 2017-0 No 5,000 Mem[facility] sodium, 8-14 unit, l porcine 16:00: Route: [place] 2500 UNT/ML 00 SUB-Q, Injectable Drug form: Solution INJ, PRE OP, Dosing Weight 106.563, kg, Start date: 12/04/16 11:00:00 CDT heparin 2017-0 No 5,000 Memoria sodium, 8-14 unit, l porcine 16:00: Route: [place] 2500 UNT/ML 00 SUB-Q, Injectable Drug form: Solution INJ, PRE OP, Dosing Weight 106.563, kg, Start date: 12/04/16 11:00:00 CDT heparin 2017-0 No 5,000 Mem[facility] sodium, 8-14 unit, l porcine 16:00: Route: [facility] 2500 UNT/ML 00 SUB-Q, Injectable Drug form: Solution INJ, PRE OP, Dosing Weight 106.563, kg, Start date: 12/04/16 11:00:00 CDT 3 ML 2017-0 Yes 5 unit, [facility] Insulin 8-10 SUB-Q, l Lispro 100 14:22: TID-Before [facility] UNT/ML Pen 00 Meals, # 3 Injector mL, 0 [Humalog] Refill(s) valsartan 2017-0 Yes 160 mg = Kishan hoang 320 mg oral 8-10 0.5 tab, l tablet 14:22: PO, Daily, Sherrell nn 00 # 30 tab, 0 Refill(s) 3 ML 0 Yes 5 unit, [facility] Insulin 8-10 SUB-Q, l Lispro 100 14:22: TID-Before [facility] UNT/ML Pen 00 Meals, # 3 Injector mL, 0 [Humalog] Refill(s) valsartan Yes 160 mg = Kishan hoang 320 mg oral 8-10 0.5 tab, l tablet 14:22: PO, Daily, Sherrell nn # 30 tab, 0 Refill(s) 3 ML 2017-0 Yes 5 unit, [facility] Insulin 8-10 SUB-Q, l Lispro 100 14:22: TID-Before [facility] [place] UNT/ML Pen 00 Meals, # 3 Injector mL, 0 [Humalog] Refill(s) valsartan Yes 160 mg = Kishan honag 320 mg oral 8-10 0.5 tab, l tablet 14:22: PO, Daily, Sherrell nn # 30 tab, 0 Refill(s) 3 ML 0 Yes 5 unit, [facility] Insulin 8-10 SUB-Q, l Lispro 100 14:22: TID-Before [facility] [place] UNT/ML Pen 00 Meals, # 3 Injector mL, 0 [Humalog] Refill(s) valsartan Yes 160 mg = Kishan hoang 320 mg oral 8-10 0.5 tab, l tablet 14:22: PO, Daily, Sherrell nn # 30 tab, 0 Refill(s) 3 ML 2016-0 Yes 5 unit, [facility] Insulin 8-10 SUB-Q, l Lispro 100 14:22: TID-Before [facility] [place] UNT/ML Pen 00 Meals, # 3 Injector mL, 0 [Humalog] Refill(s) valsartan Yes 160 mg = Kishan hoang 320 mg oral 8-10 0.5 tab, l tablet 14:22: PO, Daily, Sherrell nn # 30 tab, 0 Refill(s) 3 ML 2017-0 Yes 5 unit, [facility] Insulin 8-10 SUB-Q, l Lispro 100 14:22: TID-Before [facility] [place] UNT/ML Pen 00 Meals, # 3 Injector mL, 0 [Humalog] Refill(s) valsartan Yes 160 mg = Kishan hoang 320 mg oral 8-10 0.5 tab, l tablet 14:22: PO, Daily, Sherrell nn # 30 tab, 0 Refill(s) 3 ML 2017-0 Yes 5 unit, [facility] Insulin 8-10 SUB-Q, l Lispro 100 14:22: TID-Before [facility] [place] UNT/ML Pen 00 Meals, # 3 Injector mL, 0 [Humalog] Refill(s) valsartan Yes 160 mg = Kishan hoang 320 mg oral 8-10 0.5 tab, l tablet 14:22: PO, Daily, Sherrell nn # 30 tab, 0 Refill(s) 3 ML 2017-0 Yes 5 unit, [facility] Insulin 8-10 SUB-Q, l Lispro 100 14:22: TID-Before [facility] [place] UNT/ML Pen 00 Meals, # 3 Injector mL, 0 [Humalog] Refill(s) valsartan Yes 160 mg = Kishan hoang 320 mg oral 8-10 0.5 tab, l tablet 14:22: PO, Daily, Sherrell nn # 30 tab, 0 Refill(s) 3 ML 2016-0 Yes 5 unit, [facility] Insulin 8-10 SUB-Q, l Lispro 100 14:22: TID-Before [facility] [place] UNT/ML Pen 00 Meals, # 3 Injector mL, 0 [Humalog] Refill(s) valsartan Yes 160 mg = Kishan hoang 320 mg oral 8-10 0.5 tab, l tablet 14:22: PO, Daily, Sherrell nn # 30 tab, 0 Refill(s) 3 ML 2017-0 Yes 5 unit, [facility] Insulin 8-10 SUB-Q, l Lispro 100 14:22: TID-Before [facility] [place] UNT/ML Pen 00 Meals, # 3 Injector mL, 0 [Humalog] Refill(s) valsartan Yes 160 mg = Kishan hoang 320 mg oral 8-10 0.5 tab, l tablet 14:22: PO, Daily, Sherrell nn 00 # 30 tab, 0 Refill(s) Hydralazine Yes 25 mg = 1 M emoria Hydrochlori 8-10 tab, PO, l de 25 MG 14:21: BID, # 90 Herm jose Oral Tablet 00 tab, 3 Refill(s) carvedilol 2017-0 Yes 25 mg = 1 Me moria 25 mg oral 8-10 tab, PO, l tablet 14:21: BID, # 180 Sherrell nn 00 tab, 0 Refill(s) pantoprazol 2017-0 Yes 40 mg = 1 M emoria e 40 mg 8-10 tab, PO, l oral 14:21: Daily, # Jann enteric 00 30 tab, 0 coated Refill(s) tablet Hydralazine 2017-0 Yes 25 mg = 1 M emoria Hydrochlori 8-10 tab, PO, l de 25 MG 14:21: BID, # 90 Herm jose Oral Tablet 00 tab, 3 Refill(s) carvedilol 2017-0 Yes 25 mg = 1 Me moria 25 mg oral 8-10 tab, PO, l tablet 14:21: BID, # 180 [place] nn 00 tab, 0 Refill(s) pantoprazol 2017-0 Yes 40 mg = 1 M emoria e 40 mg 8-10 tab, PO, l oral 14:21: Daily, # [facility] enteric 00 30 tab, 0 coated Refill(s) tablet Hydralazine 2017-0 Yes 25 mg = 1 M emoria Hydrochlori 8-10 tab, PO, l de 25 MG 14:21: BID, # 90 Herm jose Oral Tablet 00 tab, 3 Refill(s) carvedilol 2017-0 Yes 25 mg = 1 Me moria 25 mg oral 8-10 tab, PO, l tablet 14:21: BID, # 180 [place] nn 00 tab, 0 Refill(s) pantoprazol 2017-0 Yes 40 mg = 1 M emoria e 40 mg 8-10 tab, PO, l oral 14:21: Daily, # [place] enteric 00 30 tab, 0 coated Refill(s) tablet Hydralazine 2017-0 Yes 25 mg = 1 M emoria Hydrochlori 8-10 tab, PO, l de 25 MG 14:21: BID, # 90 Herm jose Oral Tablet 00 tab, 3 Refill(s) carvedilol 2017-0 Yes 25 mg = 1 Me moria 25 mg oral 8-10 tab, PO, l tablet 14:21: BID, # 180 [place] nn 00 tab, 0 Refill(s) pantoprazol 2017-0 Yes 40 mg = 1 M emoria e 40 mg 8-10 tab, PO, l oral 14:21: Daily, # [place] enteric 00 30 tab, 0 coated Refill(s) tablet Hydralazine 2017-0 Yes 25 mg = 1 M emoria Hydrochlori 8-10 tab, PO, l de 25 MG 14:21: BID, # 90 Herm jose Oral Tablet 00 tab, 3 Refill(s) carvedilol 2017-0 Yes 25 mg = 1 Me moria 25 mg oral 8-10 tab, PO, l tablet 14:21: BID, # 180 Sher[place] nn 00 tab, 0 Refill(s) pantoprazol 2017-0 Yes 40 mg = 1 M emoria e 40 mg 8-10 tab, PO, l oral 14:21: Daily, # [facility] enteric 00 30 tab, 0 coated Refill(s) tablet Hydralazine 2017-0 Yes 25 mg = 1 M emoria Hydrochlori 8-10 tab, PO, l de 25 MG 14:21: BID, # 90 Herm jose Oral Tablet 00 tab, 3 Refill(s) carvedilol 2017-0 Yes 25 mg = 1 Me moria 25 mg oral 8-10 tab, PO, l tablet 14:21: BID, # 180 [place] nn 00 tab, 0 Refill(s) pantoprazol 2017-0 Yes 40 mg = 1 M emoria e 40 mg 8-10 tab, PO, l oral 14:21: Daily, # [place] enteric 00 30 tab, 0 coated Refill(s) tablet Hydralazine 2017-0 Yes 25 mg = 1 M emoria Hydrochlori 8-10 tab, PO, l de 25 MG 14:21: BID, # 90 Herm jose Oral Tablet 00 tab, 3 Refill(s) carvedilol 2017-0 Yes 25 mg = 1 Me moria 25 mg oral 8-10 tab, PO, l tablet 14:21: BID, # 180 [place] nn 00 tab, 0 Refill(s) pantoprazol 2017-0 Yes 40 mg = 1 M emoria e 40 mg 8-10 tab, PO, l oral 14:21: Daily, # [place] enteric 00 30 tab, 0 coated Refill(s) tablet Hydralazine 2017-0 Yes 25 mg = 1 M emoria Hydrochlori 8-10 tab, PO, l de 25 MG 14:21: BID, # 90 Herm jose Oral Tablet 00 tab, 3 Refill(s) carvedilol 2017-0 Yes 25 mg = 1 Me moria 25 mg oral 8-10 tab, PO, l tablet 14:21: BID, # 180 Sher[place] nn 00 tab, 0 Refill(s) pantoprazol 2017-0 Yes 40 mg = 1 M emoria e 40 mg 8-10 tab, PO, l oral 14:21: Daily, # [facility] enteric 00 30 tab, 0 coated Refill(s) tablet Hydralazine 2017-0 Yes 25 mg = 1 M emoria Hydrochlori 8-10 tab, PO, l de 25 MG 14:21: BID, # 90 Herm jose Oral Tablet 00 tab, 3 Refill(s) carvedilol 2017-0 Yes 25 mg = 1 Me moria 25 mg oral 8-10 tab, PO, l tablet 14:21: BID, # 180 Sher[place] nn 00 tab, 0 Refill(s) pantoprazol 2017-0 Yes 40 mg = 1 M emoria e 40 mg 8-10 tab, PO, l oral 14:21: Daily, # [facility] enteric 00 30 tab, 0 coated Refill(s) tablet Hydralazine 2017-0 Yes 25 mg = 1 M emoria Hydrochlori 8-10 tab, PO, l de 25 MG 14:21: BID, # 90 Herm jose Oral Tablet 00 tab, 3 Refill(s) carvedilol 2017-0 Yes 25 mg = 1 Me moria 25 mg oral 8-10 tab, PO, l tablet 14:21: BID, # 180 [place] nn 00 tab, 0 Refill(s) pantoprazol 2017-0 Yes 40 mg = 1 M emoria e 40 mg 8-10 tab, PO, l oral 14:21: Daily, # [place] enteric 00 30 tab, 0 coated Refill(s) tablet Metoclopram 2017-0 Yes 5 mg = 1 Me moria gopal 5 MG 8-10 tab, PO, l Oral Tablet 14:20: TID, # 28 [facility] [place] 00 tab, 0 Refill(s) Metoclopram 2017-0 Yes 5 mg = 1 Me moria gopal 5 MG 8-10 tab, PO, l Oral Tablet 14:20: TID, # 28 [facility] [place] 00 tab, 0 Refill(s) Metoclopram 2017-0 Yes 5 mg = 1 Me moria gopal 5 MG 8-10 tab, PO, l Oral Tablet 14:20: TID, # 28 [facility] [place] 00 tab, 0 Refill(s) Metoclopram 2017-0 Yes 5 mg = 1 Me moria gopal 5 MG 8-10 tab, PO, l Oral Tablet 14:20: TID, # 28 [facility] [place] 00 tab, 0 Refill(s) Metoclopram 2017-0 Yes 5 mg = 1 Me moria gopal 5 MG 8-10 tab, PO, l Oral Tablet 14:20: TID, # 28 [facility] [place] 00 tab, 0 Refill(s) Metoclopram 2017-0 Yes 5 mg = 1 Me moria gopal 5 MG 8-10 tab, PO, l Oral Tablet 14:20: TID, # 28 [facility] [place] 00 tab, 0 Refill(s) Metoclopram 2017-0 Yes 5 mg = 1 Me moria gopal 5 MG 8-10 tab, PO, l Oral Tablet 14:20: TID, # 28 [facility] [place] 00 tab, 0 Refill(s) Metoclopram 2017-0 Yes 5 mg = 1 Me moria gopal 5 MG 8-10 tab, PO, l Oral Tablet 14:20: TID, # 28 [facility] [place] 00 tab, 0 Refill(s) Metoclopram 2017-0 Yes 5 mg = 1 Me moria gopal 5 MG 8-10 tab, PO, l Oral Tablet 14:20: TID, # 28 [facility] 00 tab, 0 Refill(s) Metoclopram 2017-0 Yes 5 mg = 1 Me moria gopal 5 MG 8-10 tab, PO, l Oral Tablet 14:20: TID, # 28 [facility] 00 tab, 0 Refill(s) levothyroxi 2017-0 Yes 200 Memori a ne 200 mcg 8-10 microgram l (0.2 mg) 14:19: = 1 tab, Sherrell nn oral tablet 00 PO, Daily, # 30 tab, 0 Refill(s) rosuvastati 2017-0 Yes 10 mg = 1 M emoria n 10 mg 8-10 tab, PO, l oral tablet 14:19: Bedtime, # Jann 00 30 tab, 0 Refill(s) ondansetron 2017-0 Yes 4 mg = 1 Me moria 4 mg oral 8-10 tab, PO, l tablet 14:19: TID, # 3 Jann 00 tab, 0 Refill(s) Folic Acid 2017-0 Yes 1 mg = 1 Mem oria 1 MG Oral 8-10 tab, PO, l Tablet 14:19: Daily, # [facility] 00 30 tab, 0 Refill(s) levothyroxi 2017-0 Yes 200 Memori a ne 200 mcg 8-10 microgram l (0.2 mg) 14:19: = 1 tab, Sher[place] nn oral tablet 00 PO, Daily, # 30 tab, 0 Refill(s) rosuvastati 2017-0 Yes 10 mg = 1 M emoria n 10 mg 8-10 tab, PO, l oral tablet 14:19: Bedtime, # [place] 00 30 tab, 0 Refill(s) ondansetron 2017-0 Yes 4 mg = 1 Me moria 4 mg oral 8-10 tab, PO, l tablet 14:19: TID, # 3 [place] 00 tab, 0 Refill(s) Folic Acid 2017-0 Yes 1 mg = 1 Mem oria 1 MG Oral 8-10 tab, PO, l Tablet 14:19: Daily, # [place] 00 30 tab, 0 Refill(s) levothyroxi 2017-0 Yes 200 Memori a ne 200 mcg 8-10 microgram l (0.2 mg) 14:19: = 1 tab, Sherrell nn oral tablet 00 PO, Daily, # 30 tab, 0 Refill(s) rosuvastati 2017-0 Yes 10 mg = 1 M emoria n 10 mg 8-10 tab, PO, l oral tablet 14:19: Bedtime, # [facility] 00 30 tab, 0 Refill(s) ondansetron 2017-0 Yes 4 mg = 1 Me moria 4 mg oral 8-10 tab, PO, l tablet 14:19: TID, # 3 [place] 00 tab, 0 Refill(s) Folic Acid 2017-0 Yes 1 mg = 1 Mem oria 1 MG Oral 8-10 tab, PO, l Tablet 14:19: Daily, # [place] 00 30 tab, 0 Refill(s) levothyroxi 2017-0 Yes 200 Memori a ne 200 mcg 8-10 microgram l (0.2 mg) 14:19: = 1 tab, Sherrell nn oral tablet 00 PO, Daily, # 30 tab, 0 Refill(s) rosuvastati 2017-0 Yes 10 mg = 1 M emoria n 10 mg 8-10 tab, PO, l oral tablet 14:19: Bedtime, # [place] 00 30 tab, 0 Refill(s) ondansetron 2017-0 Yes 4 mg = 1 Me moria 4 mg oral 8-10 tab, PO, l tablet 14:19: TID, # 3 [facility] 00 tab, 0 Refill(s) Folic Acid 2017-0 Yes 1 mg = 1 Mem oria 1 MG Oral 8-10 tab, PO, l Tablet 14:19: Daily, # [facility] 00 30 tab, 0 Refill(s) levothyroxi 2017-0 Yes 200 Memori a ne 200 mcg 8-10 microgram l (0.2 mg) 14:19: = 1 tab, Sherrell nn oral tablet 00 PO, Daily, # 30 tab, 0 Refill(s) rosuvastati 2017-0 Yes 10 mg = 1 M emoria n 10 mg 8-10 tab, PO, l oral tablet 14:19: Bedtime, # [facility] 00 30 tab, 0 Refill(s) ondansetron 2017-0 Yes 4 mg = 1 Me moria 4 mg oral 8-10 tab, PO, l tablet 14:19: TID, # 3 [place] 00 tab, 0 Refill(s) Folic Acid 2017-0 Yes 1 mg = 1 Mem oria 1 MG Oral 8-10 tab, PO, l Tablet 14:19: Daily, # [facility] 00 30 tab, 0 Refill(s) levothyroxi 2017-0 Yes 200 Memori a ne 200 mcg 8-10 microgram l (0.2 mg) 14:19: = 1 tab, Sherrell nn oral tablet 00 PO, Daily, # 30 tab, 0 Refill(s) rosuvastati 2017-0 Yes 10 mg = 1 M emoria n 10 mg 8-10 tab, PO, l oral tablet 14:19: Bedtime, # [facility] 00 30 tab, 0 Refill(s) ondansetron 2017-0 Yes 4 mg = 1 Me moria 4 mg oral 8-10 tab, PO, l tablet 14:19: TID, # 3 Jann 00 tab, 0 Refill(s) Folic Acid 2017-0 Yes 1 mg = 1 Mem oria 1 MG Oral 8-10 tab, PO, l Tablet 14:19: Daily, # [facility] 00 30 tab, 0 Refill(s) levothyroxi 2017-0 Yes 200 Memori a ne 200 mcg 8-10 microgram l (0.2 mg) 14:19: = 1 tab, Sherrell nn oral tablet 00 PO, Daily, # 30 tab, 0 Refill(s) rosuvastati 2017-0 Yes 10 mg = 1 M emoria n 10 mg 8-10 tab, PO, l oral tablet 14:19: Bedtime, # [place] 00 30 tab, 0 Refill(s) ondansetron 2017-0 Yes 4 mg = 1 Me moria 4 mg oral 8-10 tab, PO, l tablet 14:19: TID, # 3 [place] 00 tab, 0 Refill(s) Folic Acid 2017-0 Yes 1 mg = 1 Mem oria 1 MG Oral 8-10 tab, PO, l Tablet 14:19: Daily, # [facility] 00 30 tab, 0 Refill(s) levothyroxi 2017-0 Yes 200 Memori a ne 200 mcg 8-10 microgram l (0.2 mg) 14:19: = 1 tab, Sherrell nn oral tablet 00 PO, Daily, # 30 tab, 0 Refill(s) rosuvastati 2017-0 Yes 10 mg = 1 M emoria n 10 mg 8-10 tab, PO, l oral tablet 14:19: Bedtime, # [facility] 00 30 tab, 0 Refill(s) ondansetron 2017-0 Yes 4 mg = 1 Me moria 4 mg oral 8-10 tab, PO, l tablet 14:19: TID, # 3 [place] 00 tab, 0 Refill(s) Folic Acid 2017-0 Yes 1 mg = 1 Mem oria 1 MG Oral 8-10 tab, PO, l Tablet 14:19: Daily, # [place] 00 30 tab, 0 Refill(s) levothyroxi 2017-0 Yes 200 Memori a ne 200 mcg 8-10 microgram l (0.2 mg) 14:19: = 1 tab, Sherrell nn oral tablet 00 PO, Daily, # 30 tab, 0 Refill(s) rosuvastati 2017-0 Yes 10 mg = 1 M emoria n 10 mg 8-10 tab, PO, l oral tablet 14:19: Bedtime, # [facility] 00 30 tab, 0 Refill(s) ondansetron 2017-0 Yes 4 mg = 1 Me moria 4 mg oral 8-10 tab, PO, l tablet 14:19: TID, # 3 [place] 00 tab, 0 Refill(s) Folic Acid 2017-0 Yes 1 mg = 1 Mem oria 1 MG Oral 8-10 tab, PO, l Tablet 14:19: Daily, # [facility] 00 30 tab, 0 Refill(s) Folic Acid 2017-0 Yes 1 mg = 1 Mem oria 1 MG Oral 8-10 tab, PO, l Tablet 14:19: Daily, # [place] 00 30 tab, 0 Refill(s) levothyroxi 20170 Yes 200 Memori a ne 200 mcg 8-10 microgram l (0.2 mg) 14:19: = 1 tab, Sherrell nn oral tablet 00 PO, Daily, # 30 tab, 0 Refill(s) rosuvastati 2017-0 Yes 10 mg = 1 M emoria n 10 mg 8-10 tab, PO, l oral tablet 14:19: Bedtime, # [facility] 00 30 tab, 0 Refill(s) ondansetron 2017-0 Yes 4 mg = 1 Me moria 4 mg oral 8-10 tab, PO, l tablet 14:19: TID, # 3 Jann 00 tab, 0 Refill(s) gabapentin 2017-0 Yes 800 mg = 1 M emoria 800 MG Oral 8-10 tab, PO, l Tablet 14:16: TID, # 270 Sher[place] nn 00 tab, 0 Refill(s) gabapentin 2017-0 Yes 800 mg = 1 M emoria 800 MG Oral 8-10 tab, PO, l Tablet 14:16: TID, # 270 Sher[place] nn 00 tab, 0 Refill(s) gabapentin 2017-0 Yes 800 mg = 1 M emoria 800 MG Oral 8-10 tab, PO, l Tablet 14:16: TID, # 270 [place] nn 00 tab, 0 Refill(s) gabapentin 2017-0 Yes 800 mg = 1 M emoria 800 MG Oral 8-10 tab, PO, l Tablet 14:16: TID, # 270 Sherrell nn 00 tab, 0 Refill(s) gabapentin 2017-0 Yes 800 mg = 1 M emoria 800 MG Oral 8-10 tab, PO, l Tablet 14:16: TID, # 270 [place] nn 00 tab, 0 Refill(s) gabapentin 2017-0 Yes 800 mg = 1 M emoria 800 MG Oral 8-10 tab, PO, l Tablet 14:16: TID, # 270 [place] nn 00 tab, 0 Refill(s) gabapentin 2017-0 Yes 800 mg = 1 M emoria 800 MG Oral 8-10 tab, PO, l Tablet 14:16: TID, # 270 [place] nn 00 tab, 0 Refill(s) gabapentin 2017-0 Yes 800 mg = 1 M emoria 800 MG Oral 8-10 tab, PO, l Tablet 14:16: TID, # 270 [place] nn 00 tab, 0 Refill(s) gabapentin 2017-0 Yes 800 mg = 1 M emoria 800 MG Oral 8-10 tab, PO, l Tablet 14:16: TID, # 270 [place] nn 00 tab, 0 Refill(s) gabapentin 2017-0 Yes 800 mg = 1 M emoria 800 MG Oral 8-10 tab, PO, l Tablet 14:16: TID, # 270 Sherrell nn 00 tab, 0 Refill(s) etanercept 2017-0 Yes 25 mg = 1 Me moria 25 mg 8-10 ea, SUB-Q, l subcutaneou 14:15: 5X Day, # [facility] s injection 00 12 ea, 0 Refill(s) methotrexat 2017-0 Yes 15 mg = 6 M emoria e 2.5 mg 8-10 tab, PO, l oral tablet 14:15: Q7D, # 2 [facility] 00 tab, 0 Refill(s) etanercept 2017-0 Yes 25 mg = 1 Me moria 25 mg 8-10 ea, SUB-Q, l subcutaneou 14:15: 5X Day, # [facility] s injection 00 12 ea, 0 Refill(s) methotrexat 2017-0 Yes 15 mg = 6 M emoria e 2.5 mg 8-10 tab, PO, l oral tablet 14:15: Q7D, # 2 [facility] 00 tab, 0 Refill(s) etanercept 2017-0 Yes 25 mg = 1 Me moria 25 mg 8-10 ea, SUB-Q, l subcutaneou 14:15: 5X Day, # [facility] s injection 00 12 ea, 0 Refill(s) methotrexat 2017-0 Yes 15 mg = 6 M emoria e 2.5 mg 8-10 tab, PO, l oral tablet 14:15: Q7D, # 2 [facility] 00 tab, 0 Refill(s) etanercept 2017-0 Yes 25 mg = 1 Me moria 25 mg 8-10 ea, SUB-Q, l subcutaneou 14:15: 5X Day, # [facility] s injection 00 12 ea, 0 Refill(s) methotrexat 2017-0 Yes 15 mg = 6 M emoria e 2.5 mg 8-10 tab, PO, l oral tablet 14:15: Q7D, # 2 [place] [facility] 00 tab, 0 Refill(s) etanercept 2017-0 Yes 25 mg = 1 Me moria 25 mg 8-10 ea, SUB-Q, l subcutaneou 14:15: 5X Day, # [facility] s injection 00 12 ea, 0 Refill(s) methotrexat 2017-0 Yes 15 mg = 6 M emoria e 2.5 mg 8-10 tab, PO, l oral tablet 14:15: Q7D, # 2 [place] [facility] 00 tab, 0 Refill(s) etanercept 2017-0 Yes 25 mg = 1 Me moria 25 mg 8-10 ea, SUB-Q, l subcutaneou 14:15: 5X Day, # [facility] s injection 00 12 ea, 0 Refill(s) methotrexat 2017-0 Yes 15 mg = 6 M emoria e 2.5 mg 8-10 tab, PO, l oral tablet 14:15: Q7D, # 2 [facility] 00 tab, 0 Refill(s) etanercept 2017-0 Yes 25 mg = 1 Me moria 25 mg 8-10 ea, SUB-Q, l subcutaneou 14:15: 5X Day, # [facility] s injection 00 12 ea, 0 Refill(s) methotrexat 2017-0 Yes 15 mg = 6 M emoria e 2.5 mg 8-10 tab, PO, l oral tablet 14:15: Q7D, # 2 [place] [facility] 00 tab, 0 Refill(s) etanercept 2017-0 Yes 25 mg = 1 Me moria 25 mg 8-10 ea, SUB-Q, l subcutaneou 14:15: 5X Day, # [facility] s injection 00 12 ea, 0 Refill(s) methotrexat 2017-0 Yes 15 mg = 6 M emoria e 2.5 mg 8-10 tab, PO, l oral tablet 14:15: Q7D, # 2 [facility] 00 tab, 0 Refill(s) etanercept 2017-0 Yes 25 mg = 1 Me moria 25 mg 8-10 ea, SUB-Q, l subcutaneou 14:15: 5X Day, # [facility] s injection 00 12 ea, 0 Refill(s) methotrexat 2017-0 Yes 15 mg = 6 M emoria e 2.5 mg 8-10 tab, PO, l oral tablet 14:15: Q7D, # 2 [facility] 00 tab, 0 Refill(s) methotrexat 2017-0 Yes 15 mg = 6 M emoria e 2.5 mg 8-10 tab, PO, l oral tablet 14:15: Q7D, # 2 [facility] 00 tab, 0 Refill(s) etanercept 2017-0 Yes 25 mg = 1 Me moria 25 mg 8-10 ea, SUB-Q, l subcutaneou 14:15: 5X Day, # [facility] s injection 00 12 ea, 0 Refill(s) clobetasoL 2015-0 Yes Apply Univer s 0.05 % 9-12 sparingly ity of ointment 00:00: BID to [place] [facility] Mon-Sun PRN. Not for use on face/folds . clobetasoL 2015-0 Yes Apply Univer s 0.05 % 9-12 sparingly ity of ointment 00:00: BID to [place] [facility] Mon-Sun PRN. Not for use on face/folds . clobetasoL 2015-0 Yes Apply Univer s 0.05 % 9-12 sparingly ity of ointment 00:00: BID to [place] [facility] Mon-Sun PRN. Not for use on face/folds . clobetasoL 2015-0 Yes Apply Univer s 0.05 % 9-12 sparingly ity of ointment 00:00: BID to [place] 00 [facility] of [facility] Mon-Fri PRN. Not for use on face/folds . clobetasoL 2015-0 Yes Apply Univer s 0.05 % 9-12 sparingly ity of ointment 00:00: BID to [place] 00 [facility] of [facility] Mon-Fri PRN. Not for use on face/folds . clobetasoL 2015- Yes Apply Univer s 0.05 % 9-12 sparingly ity of ointment 00:00: BID to [place] 00 [facility] of [facility] Mon-Fri PRN. Not for use on face/folds . clobetasoL 2015-0 Yes Apply Univer s 0.05 % 9-12 sparingly ity of ointment 00:00: BID to [place] 00 [facility] of [facility] Mon-Fri PRN. Not for use on face/folds . clobetasoL Yes Apply Univer s 0.05 % 9-12 sparingly ity of ointment 00:00: BID to [place] 00 [facility] Mon-Fri PRN. Not for use on face/folds . clobetasoL Yes Apply Univer s 0.05 % 9-12 sparingly ity of ointment 00:00: BID to [place] 00 [facility] Mon-Fri PRN. Not for use on face/folds . clobetasoL Yes Apply Univer s 0.05 % 9-12 sparingly ity of ointment 00:00: BID to [place] 00 [facility] of [facility] Mon-Fri PRN. Not for use on face/folds . clobetasoL Yes Apply Univer s 0.05 % 9-12 sparingly ity of ointment 00:00: BID to [place] 00 [facility] Mon-Fri PRN. Not for use on face/folds . clobetasoL 0 Yes Apply Univer s 0.05 % 9-12 sparingly ity of ointment 00:00: BID to [place] 00 [facility] of [facility] Mon-Fri PRN. Not for use on face/folds . clobetasoL Yes Apply Univer s 0.05 % 9-12 sparingly ity of ointment 00:00: BID to [place] 00 [facility] of [facility] Mon-Fri PRN. Not for use on face/folds . clobetasoL 2015-0 Yes Apply Univer s 0.05 % 9-12 sparingly ity of ointment 00:00: BID to [place] 00 [facility] of [facility] Mon-Fri PRN. Not for use on face/folds . clobetasoL 2015-0 Yes Apply Univer s 0.05 % 9-12 sparingly ity of ointment 00:00: BID to [place] 00 [facility] of [facility] Mon-Fri PRN. Not for use on face/folds . clobetasoL 2015-0 Yes Apply Univer s 0.05 % 9-12 sparingly ity of ointment 00:00: BID to [place] 00 [facility] of [facility] Mon-Fri PRN. Not for use on face/folds . clobetasoL 2015-0 Yes Apply Univer s 0.05 % 9-12 sparingly ity of ointment 00:00: BID to [place] 00 [facility] of [facility] Mon-Fri PRN. Not for use on face/folds . clobetasoL 2015-0 Yes Apply Univer s 0.05 % 9-12 sparingly ity of ointment 00:00: BID to [place] 00 [facility] of [facility] Mon-Fri PRN. Not for use on face/folds . clobetasoL 2015-0 Yes Apply Univer s 0.05 % 9-12 sparingly ity of ointment 00:00: BID to [place] 00 [facility] of [facility] Mon-Fri PRN. Not for use on face/folds . clobetasoL 2015-0 Yes Apply Univer s 0.05 % 9-12 sparingly ity of ointment 00:00: BID to [place] 00 [facility] Mon-Fri PRN. Not for use on face/folds . clobetasoL 2015-0 Yes Apply Univer s 0.05 % 9-12 sparingly ity of ointment 00:00: BID to [place] 00 [facility] Mon-Fri PRN. Not for use on face/folds . clobetasoL 2015-0 Yes Apply Univer s 0.05 % 9-12 sparingly ity of ointment 00:00: BID to [place] 00 [facility] Mon-Fri PRN. Not for use on face/folds . clobetasoL 2015- Yes Apply Univer s 0.05 % 9-12 sparingly ity of ointment 00:00: BID to [place] 00 [facility] Mon-Fri PRN. Not for use on face/folds . clobetasoL Yes Apply Univer s 0.05 % 9-12 sparingly ity of ointment 00:00: BID to [place] 00 [facility] Mon-Fri PRN. Not for use on face/folds . clobetasoL Yes Apply Univer s 0.05 % 9-12 sparingly ity of ointment 00:00: BID to [place] 00 [facility] Mon-Fri PRN. Not for use on face/folds . clobetasoL Yes Apply Univer s 0.05 % 9-12 sparingly ity of ointment 00:00: BID to [place] 00 [facility] Mon-Fri PRN. Not for use on face/folds . clobetasoL Yes Apply Univer s 0.05 % 9-12 sparingly ity of ointment 00:00: BID to [place] 00 [facility] Mon-Fri PRN. Not for use on face/folds . clobetasoL Yes Apply Univer [facility] 0.05 % 9-12 sparingly ity of ointment 00:00: BID to [place] 00 [facility] Mon-Fri PRN. Not for use on face/folds . clobetasoL Yes Apply [facility]iver [facility] 0.05 % 9-12 sparingly ity of ointment 00:00: BID to [place] 00 [facility] Mon-Fri PRN. Not for use on face/folds . clobetasoL 0 Yes Apply [facility] 0.05 % 9-12 sparingly ity of ointment 00:00: BID to [place] 00 [facility] Mon-Fri PRN. Not for use on face/folds . clobetasoL Yes Apply [facility] 0.05 % 9-12 sparingly ity of ointment 00:00: BID to [place] 00 [facility] Mon-Fri PRN. Not for use on face/folds . clobetasoL 2016-0 Yes Apply [facility]iver [facility] 0.05 % 9-12 sparingly ity of ointment 00:00: BID to [place] 00 [facility] Mon-Fri PRN. Not for use on face/folds . clobetasoL 2015-0 Yes Apply [facility] 0.05 % 9-12 sparingly ity of ointment 00:00: BID to [place] 00 [facility] Mon-Fri PRN. Not for use on face/folds . clobetasoL 2015- Yes Apply [facility] 0.05 % 9-12 sparingly ity of ointment 00:00: BID to [place] 00 [facility] Mon-Fri PRN. Not for use on face/folds . clobetasoL 2015-0 Yes Apply [facility] 0.05 % 9-12 sparingly ity of ointment 00:00: BID to [place] 00 [facility] Mon-Fri PRN. Not for use on face/folds . clobetasoL Yes Apply [facility] 0.05 % 9-12 sparingly ity of ointment 00:00: BID to [place] 00 [facility] Mon-Fri PRN. Not for use on face/folds . clobetasoL 2015-0 Yes Apply [facility] 0.05 % 9-12 sparingly ity of ointment 00:00: BID to [place] 00 rash of [facility] body [facility] Mon-Fri PRN. Not for use on face/folds . clobetasoL 2015- Yes Apply [facility] 0.05 % 9-12 sparingly ity of ointment 00:00: BID to [place] 00 rash of [facility] body [facility] Mon-Fri PRN. Not for use on face/folds . clobetasoL 2015-0 Yes Apply [facility] 0.05 % 9-12 sparingly ity of ointment 00:00: BID to [place] 00 rash of [facility] body [facility] Mon-Fri PRN. Not for use on face/folds . clobetasoL 2015-0 Yes Apply [facility] 0.05 % 9-12 sparingly ity of ointment 00:00: BID to [place] 00 rash of [facility] body [facility] Mon-Fri PRN. Not for use on face/folds . clobetasoL 2015-0 Yes Apply [facility] 0.05 % 9-12 sparingly ity of ointment 00:00: BID to [place] 00 rash of [facility] body [facility] Mon-Fri PRN. Not for use on face/folds . clobetasoL 2015-0 Yes Apply [facility] 0.05 % 9-12 sparingly ity of ointment 00:00: BID to [place] 00 rash of [facility] body [facility] Mon-Fri PRN. Not for use on face/folds . clobetasoL 2015-0 Yes Apply [facility] 0.05 % 9-12 sparingly ity of ointment 00:00: BID to [place] 00 rash of [facility] body [facility] Mon-Fri PRN. Not for use on face/folds . clobetasoL 2015-0 Yes Apply [facility] 0.05 % 9-12 sparingly ity of ointment 00:00: BID to [place] 00 rash of [facility] body [facility] Mon-Fri PRN. Not for use on face/folds . clobetasoL 2015- Yes Apply [facility] 0.05 % 9-12 sparingly ity of ointment 00:00: BID to [place] 00 rash of [facility] body [facility] Mon-Fri PRN. Not for use on face/folds . clobetasoL 2015-0 Yes Apply [facility] 0.05 % 9-12 sparingly ity of ointment 00:00: BID to [place] 00 rash of [facility] body [facility] Mon-Fri PRN. Not for use on face/folds . clobetasoL 2015-0 Yes Apply [facility] 0.05 % 9-12 sparingly ity of ointment 00:00: BID to [place] 00 rash of [facility] body [facility] Mon-Fri PRN. Not for use on face/folds . clobetasoL 2015- Yes Apply [facility] 0.05 % 9-12 sparingly ity of ointment 00:00: BID to [place] 00 rash of [facility] body [facility] Mon-Fri PRN. Not for use on face/folds . clobetasoL 2015-0 Yes Apply [facility] 0.05 % 9-12 sparingly ity of ointment 00:00: BID to [place] 00 rash of [facility] body [facility] Mon-Fri PRN. Not for use on face/folds . clobetasoL 2015-0 Yes Apply [facility] 0.05 % 9-12 sparingly ity of ointment 00:00: BID to [facility] of [facility] body [facility] Mon-Sun PRN. Not for use on face/folds . clobetasoL 2016-0 Yes Apply [facility] 0.05 % 9-12 sparingly ity of ointment 00:00: BID to [facility] Mon-Sun PRN. Not for use on face/folds . carvedilol 2016-0 Yes 25mg Take 1 [facility] (COREG) 25 7-21 tablet by ity of mg tablet 00:00: mouth (two) Medical times Branch daily. carvedilol 2016-0 Yes 25mg Take 1 [facility] (COREG) 25 7-21 tablet by ity of mg tablet 00:00: mouth (two) Medical times Branch daily. carvedilol 2016-0 Yes 25mg Take 1 [facility] (COREG) 25 7-21 tablet by ity of mg tablet 00:00: mouth (two) Medical times Branch daily. carvedilol 2016-0 Yes 25mg Take 1 [facility] (COREG) 25 7-21 tablet by ity of mg tablet 00:00: mouth (two) Medical times Branch daily. carvedilol 2016-0 Yes 25mg Take 1 [facility] (COREG) 25 7-21 tablet by ity of mg tablet 00:00: mouth (two) Medical times Branch daily. carvedilol 2016-0 Yes 25mg Take 1 [facility] (COREG) 25 7-21 tablet by ity of mg tablet 00:00: mouth (two) Medical times Branch daily. carvedilol 2016-0 Yes 25mg Take 1 [facility] (COREG) 25 7-21 tablet by ity of mg tablet 00:00: mouth (two) Medical times Branch daily. carvedilol 2016-0 Yes 25mg Take 1 [facility] (COREG) 25 7-21 tablet by ity of mg tablet 00:00: mouth (two) Medical times Branch daily. carvedilol 2016-0 Yes 25mg Take 1 [facility] (COREG) 25 7-21 tablet by ity of mg tablet 00:00: mouth 2 (two) Medical times Branch daily. carvedilol 2016-0 Yes 25mg Take 1 [facility] (COREG) 25 7-21 tablet by ity of mg tablet 00:00: mouth 2 (two) Medical times Branch daily. carvedilol 2016-0 Yes 25mg Take 1 [facility] (COREG) 25 7-21 tablet by ity of mg tablet 00:00: mouth 2 (two) Medical times Branch daily. carvedilol 2016-0 Yes 25mg Take 1 [facility] (COREG) 25 7-21 tablet by ity of mg tablet 00:00: mouth 2 (two) Medical times Branch daily. carvedilol 2016-0 Yes 25mg Take 1 [facility] (COREG) 25 7-21 tablet by ity of mg tablet 00:00: mouth 2 (two) Medical times Branch daily. carvedilol 2016-0 Yes 25mg Take 1 [facility] (COREG) 25 7-21 tablet by ity of mg tablet 00:00: mouth (two) Medical times Branch daily. carvedilol 2016-0 Yes 25mg Take 1 [facility] (COREG) 25 7-21 tablet by ity of mg tablet 00:00: mouth (two) Medical times Branch daily. carvedilol 2016-0 Yes 25mg Take 1 [facility] (COREG) 25 7-21 tablet by ity of mg tablet 00:00: mouth (two) Medical times Branch daily. carvedilol 2016-0 Yes 25mg Take 1 [facility] (COREG) 25 7-21 tablet by ity of mg tablet 00:00: mouth (two) Medical times Branch daily. carvedilol 2016-0 Yes 25mg Take 1 [facility] (COREG) 25 7-21 tablet by ity of mg tablet 00:00: mouth (two) Medical times Branch daily. carvedilol 2016-0 Yes 25mg Take 1 [facility] (COREG) 25 7-21 tablet by ity of mg tablet 00:00: mouth (two) Medical times Branch daily. carvedilol 2016-0 Yes 25mg Take 1 [facility] (COREG) 25 7-21 tablet by ity of mg tablet 00:00: mouth 2 (two) Medical times Branch daily. carvedilol 2016-0 Yes 25mg Take 1 [facility] (COREG) 25 7-21 tablet by ity of mg tablet 00:00: mouth (two) Medical times Branch daily. carvedilol 2016-0 Yes 25mg Take 1 [facility] (COREG) 25 7-21 tablet by ity of mg tablet 00:00: mouth (two) Medical times Branch daily. carvedilol 2016-0 Yes 25mg Take 1 [facility] (COREG) 25 7-21 tablet by ity of mg tablet 00:00: mouth (two) Medical times Branch daily. carvedilol 2016-0 Yes 25mg Take 1 [facility] (COREG) 25 7-21 tablet by ity of mg tablet 00:00: mouth (two) Medical times Branch daily. carvedilol 2016-0 Yes 25mg Take 1 [facility] (COREG) 25 7-21 tablet by ity of mg tablet 00:00: mouth (two) Medical times Branch daily. carvedilol 2016-0 Yes 25mg Take 1 [facility] (COREG) 25 7-21 tablet by ity of mg tablet 00:00: mouth (two) Medical times Branch daily. carvedilol 2016-0 Yes 25mg Take 1 [facility] (COREG) 25 7-21 tablet by ity of mg tablet 00:00: mouth (two) Medical times Branch daily. carvedilol 2016-0 Yes 25mg Take 1 [facility] (COREG) 25 7-21 tablet by ity of mg tablet 00:00: mouth (two) Medical times Branch daily. carvedilol 2016-0 Yes 25mg Take 1 [facility] (COREG) 25 7-21 tablet by ity of mg tablet 00:00: mouth (two) Medical times Branch daily. carvedilol 2016-0 Yes 25mg Take 1 [facility] (COREG) 25 7-21 tablet by ity of mg tablet 00:00: mouth (two) Medical times Branch daily. carvedilol 2016-0 Yes 25mg Take 1 [facility] (COREG) 25 7-21 tablet by ity of mg tablet 00:00: mouth 2 (two) Medical times Branch daily. carvedilol 2016-0 Yes 25mg Take 1 [facility] (COREG) 25 7-21 tablet by ity of mg tablet 00:00: mouth (two) Medical times Branch daily. carvedilol 2016-0 Yes 25mg Take 1 [facility] (COREG) 25 7-21 tablet by ity of mg tablet 00:00: mouth (two) Medical times Branch daily. carvedilol 2016-0 Yes 25mg Take 1 [facility] (COREG) 25 7-21 tablet by ity of mg tablet 00:00: mouth (two) Medical times Branch daily. carvedilol 2016-0 Yes 25mg Take 1 [facility] (COREG) 25 7-21 tablet by ity of mg tablet 00:00: mouth (two) Medical times Branch daily. carvedilol 2016-0 Yes 25mg Take 1 [facility] (COREG) 25 7-21 tablet by ity of mg tablet 00:00: mouth (two) Medical times Branch daily. carvedilol 2016-0 Yes 25mg Take 1 [facility] (COREG) 25 7-21 tablet by ity of mg tablet 00:00: mouth (two) Medical times Branch daily. carvedilol 2016-0 Yes 25mg Take 1 [facility] (COREG) 25 7-21 tablet by ity of mg tablet 00:00: mouth (two) Medical times Branch daily. carvedilol 2016-0 Yes 25mg Take 1 [facility] (COREG) 25 7-21 tablet by ity of mg tablet 00:00: mouth (two) Medical times Branch daily. carvedilol 2016-0 Yes 25mg Take 1 [facility] (COREG) 25 7-21 tablet by ity of mg tablet 00:00: mouth (two) Medical times Branch daily. carvedilol 2016-0 Yes 25mg Take 1 [facility] (COREG) 25 7-21 tablet by ity of mg tablet 00:00: mouth (two) Medical times Branch daily. carvedilol 2016-0 Yes 25mg Take 1 [facility] (COREG) 25 7-21 tablet by ity of mg tablet 00:00: mouth (two) Medical times Branch daily. carvedilol 2016-0 Yes 25mg Take 1 [facility] (COREG) 25 7-21 tablet by ity of mg tablet 00:00: mouth 2 (two) Medical times Branch daily. carvedilol 2016-0 Yes 25mg Take 1 [facility] (COREG) 25 7-21 tablet by ity of mg tablet 00:00: mouth (two) Medical times Branch daily. carvedilol 2016-0 Yes 25mg Take 1 [facility] (COREG) 25 7-21 tablet by ity of mg tablet 00:00: mouth 2 (two) Medical times Branch daily. carvedilol 2016-0 Yes 25mg Take 1 [facility] (COREG) 25 7-21 tablet by ity of mg tablet 00:00: mouth 2 (two) Medical times Branch daily. carvedilol 2016-0 Yes 25mg Take 1 [facility] (COREG) 25 7-21 tablet by ity of mg tablet 00:00: mouth (two) Medical times Branch daily. carvedilol 2016-0 Yes 25mg Take 1 [facility] (COREG) 25 7-21 tablet by ity of mg tablet 00:00: mouth (two) Medical times Branch daily. carvedilol 2016-0 Yes 25mg Take 1 [facility] (COREG) 25 7-21 tablet by ity of mg tablet 00:00: mouth (two) Medical times Branch daily. carvedilol 2016-0 Yes 25mg Take 1 [facility] (COREG) 25 7-21 tablet by ity of mg tablet 00:00: mouth 2 (two) Medical times Branch daily. carvedilol 2016-0 Yes 25mg Take 1 [facility] (COREG) 25 7-21 tablet by ity of mg tablet 00:00: mouth (two) Medical times Branch daily. carvedilol 2016-0 Yes 25mg Take 1 [facility] (COREG) 25 7-21 tablet by ity of mg tablet 00:00: mouth 2 (two) Medical times Branch daily. levothyroxi 2014-04 Yes 175ug Take 1 Tab [facility] 1-06 by mouth ity of (SYNTHROID) 00:00: every [place] 175 mcg 00 morning. Medical tablet Branch levothyroxi 2014-04 Yes 175ug Take 1 Tab [facility] 1-06 by mouth ity of (SYNTHROID) 00:00: every [place] 175 mcg 00 morning. Medical tablet Branch levothyroxi 2014-04 Yes 175ug Take 1 Tab [facility] 1-06 by mouth ity of (SYNTHROID) 00:00: every [place] 175 mcg 00 morning. Medical tablet Branch levothyroxi 2014-04 Yes 175ug Take 1 Tab [facility] 1-06 by mouth ity of (SYNTHROID) 00:00: every [place] 175 mcg 00 morning. Medical tablet Branch levothyroxi 2014-04 Yes 175ug Take 1 Tab [facility] 1-06 by mouth ity of (SYNTHROID) 00:00: every [place] 175 mcg 00 morning. Medical tablet Branch levothyroxi 2014-04 Yes 175ug Take 1 Tab [facility] 1-06 by mouth ity of (SYNTHROID) 00:00: every [place] 175 mcg 00 morning. Medical tablet Branch levothyroxi 2014-04 Yes 175ug Take 1 Tab [facility] 1-06 by mouth ity of (SYNTHROID) 00:00: every [place] 175 mcg 00 morning. Medical tablet Branch levothyroxi 2014-04 Yes 175ug Take 1 Tab [facility] 1-06 by mouth ity of (SYNTHROID) 00:00: every [place] 175 mcg 00 morning. Medical tablet Branch levothyroxi 2014-04 Yes 175ug Take 1 Tab [facility] 1-06 by mouth ity of (SYNTHROID) 00:00: every [place] 175 mcg 00 morning. Medical tablet Branch levothyroxi 2014-04 Yes 175ug Take 1 Tab [facility] 1-06 by mouth ity of (SYNTHROID) 00:00: every [place] 175 mcg 00 morning. Medical tablet Branch levothyroxi 2014-04 Yes 175ug Take 1 Tab [facility] 1-06 by mouth ity of (SYNTHROID) 00:00: every [place] 175 mcg 00 morning. Medical tablet Branch levothyroxi 2014-04 Yes 175ug Take 1 Tab [facility] 1-06 by mouth ity of (SYNTHROID) 00:00: every [place] 175 mcg 00 morning. Medical tablet Branch levothyroxi 2014-04 Yes 175ug Take 1 Tab [facility] 1-06 by mouth ity of (SYNTHROID) 00:00: every [place] 175 mcg 00 morning. Medical tablet Branch levothyroxi 2014-04 Yes 175ug Take 1 Tab [facility] 1-06 by mouth ity of (SYNTHROID) 00:00: every [place] 175 mcg 00 morning. Medical tablet Branch levothyroxi 2014-04 Yes 175ug Take 1 Tab [facility] 1-06 by mouth ity of (SYNTHROID) 00:00: every [place] 175 mcg 00 morning. Medical tablet Branch levothyroxi 2014-04 Yes 175ug Take 1 Tab [facility] 1-06 by mouth ity of (SYNTHROID) 00:00: every [place] 175 mcg 00 morning. Medical tablet Branch levothyroxi 2014-04 Yes 175ug Take 1 Tab [facility] 1-06 by mouth ity of (SYNTHROID) 00:00: every [place] 175 mcg 00 morning. Medical tablet Branch levothyroxi 2014-04 Yes 175ug Take 1 Tab [facility] 1-06 by mouth ity of (SYNTHROID) 00:00: every [place] 175 mcg 00 morning. Medical tablet Branch levothyroxi 2014-04 Yes 175ug Take 1 Tab [facility] 1-06 by mouth ity of (SYNTHROID) 00:00: every [place] 175 mcg 00 morning. Medical tablet Branch levothyroxi 2014-04 Yes 175ug Take 1 Tab [facility] 1-06 by mouth ity of (SYNTHROID) 00:00: every [place] 175 mcg 00 morning. Medical tablet Branch levothyroxi 2014-04 Yes 175ug Take 1 Tab [facility] 1-06 by mouth ity of (SYNTHROID) 00:00: every [place] 175 mcg 00 morning. Medical tablet Branch levothyroxi 2014-04 Yes 175ug Take 1 Tab [facility] 1-06 by mouth ity of (SYNTHROID) 00:00: every [place] 175 mcg 00 morning. Medical tablet Branch levothyroxi 2014-04 Yes 175ug Take 1 Tab [facility] 1-06 by mouth ity of (SYNTHROID) 00:00: every [place] 175 mcg 00 morning. Medical tablet Branch levothyroxi 2014-04 Yes 175ug Take 1 Tab [facility] 1-06 by mouth ity of (SYNTHROID) 00:00: every [place] 175 mcg 00 morning. Medical tablet Branch levothyroxi 2014-04 Yes 175ug Take 1 Tab [facility] 1-06 by mouth ity of (SYNTHROID) 00:00: every [place] 175 mcg 00 morning. Medical tablet Branch levothyroxi 2014-04 Yes 175ug Take 1 Tab [facility] 1-06 by mouth ity of (SYNTHROID) 00:00: every [place] 175 mcg 00 morning. Medical tablet Branch levothyroxi 2014-04 Yes 175ug Take 1 Tab [facility] 1-06 by mouth ity of (SYNTHROID) 00:00: every [place] 175 mcg 00 morning. Medical tablet Branch levothyroxi 2014-04 Yes 175ug Take 1 Tab [facility] 1-06 by mouth ity of (SYNTHROID) 00:00: every [place] 175 mcg 00 morning. Medical tablet Branch levothyroxi 2014-04 Yes 175ug Take 1 Tab [facility] 1-06 by mouth ity of (SYNTHROID) 00:00: every [place] 175 mcg 00 morning. Medical tablet Branch levothyroxi 2014-04 Yes 175ug Take 1 Tab [facility] 1-06 by mouth ity of (SYNTHROID) 00:00: every [place] 175 mcg 00 morning. Medical tablet Branch levothyroxi 2014-04 Yes 175ug Take 1 Tab [facility] 1-06 by mouth ity of (SYNTHROID) 00:00: every [place] 175 mcg 00 morning. Medical tablet Branch levothyroxi 2014-04 Yes 175ug Take 1 Tab [facility] 1-06 by mouth ity of (SYNTHROID) 00:00: every [place] 175 mcg 00 morning. Medical tablet Branch levothyroxi 2014-04 Yes 175ug Take 1 Tab [facility] 1-06 by mouth ity of (SYNTHROID) 00:00: every [place] 175 mcg 00 morning. Medical tablet Branch levothyroxi 2014-04 Yes 175ug Take 1 Tab [facility] 1-06 by mouth ity of (SYNTHROID) 00:00: every [place] 175 mcg 00 morning. Medical tablet Branch levothyroxi 2014-04 Yes 175ug Take 1 Tab [facility] 1-06 by mouth ity of (SYNTHROID) 00:00: every [place] 175 mcg 00 morning. Medical tablet Branch levothyroxi 2014-04 Yes 175ug Take 1 Tab [facility] 1-06 by mouth ity of (SYNTHROID) 00:00: every [place] 175 mcg 00 morning. Medical tablet Branch levothyroxi 2014-04 Yes 175ug Take 1 Tab [facility] 1-06 by mouth ity of (SYNTHROID) 00:00: every [place] 175 mcg 00 morning. Medical tablet Branch levothyroxi 2014-04 Yes 175ug Take 1 Tab [facility] ne 1-06 by mouth ity of (SYNTHROID) 00:00: every [place] 175 mcg 00 morning. Medical tablet Branch levothyroxi 2014-04 Yes 175ug Take 1 Tab [facility] 1-06 by mouth ity of (SYNTHROID) 00:00: every [place] 175 mcg 00 morning. Medical tablet Branch levothyroxi 2014-04 Yes 175ug Take 1 Tab [facility] ne 1-06 by mouth ity of (SYNTHROID) 00:00: every [place] 175 mcg 00 morning. Medical tablet Branch levothyroxi 2014-04 Yes 175ug Take 1 Tab [facility] 1-06 by mouth ity of (SYNTHROID) 00:00: every [place] 175 mcg 00 morning. Medical tablet Branch levothyroxi 2014-04 Yes 175ug Take 1 Tab [facility] 1-06 by mouth ity of (SYNTHROID) 00:00: every [place] 175 mcg 00 morning. Medical tablet Branch levothyroxi 2014-04 Yes 175ug Take 1 Tab [facility] ne 1-06 by mouth ity of (SYNTHROID) 00:00: every [place] 175 mcg 00 morning. Medical tablet Branch levothyroxi 2014-04 Yes 175ug Take 1 Tab [facility] ne 1-06 by mouth ity of (SYNTHROID) 00:00: every [place] 175 mcg 00 morning. Medical tablet Branch levothyroxi 2014-04 Yes 175ug Take 1 Tab [facility] 1-06 by mouth ity of (SYNTHROID) 00:00: every [place] 175 mcg 00 morning. Medical tablet Branch levothyroxi 2014-04 Yes 175ug Take 1 Tab [facility] ne 1-06 by mouth ity of (SYNTHROID) 00:00: every [place] 175 mcg 00 morning. Medical tablet Branch levothyroxi 2014-04 Yes 175ug Take 1 Tab [facility] 1-06 by mouth ity of (SYNTHROID) 00:00: every [place] 175 mcg 00 morning. Medical tablet Branch levothyroxi 2014-04 Yes 175ug Take 1 Tab [facility] ne 1-06 by mouth ity of (SYNTHROID) 00:00: every [place] 175 mcg 00 morning. Medical tablet Branch levothyroxi 2014-04 Yes 175ug Take 1 Tab [facility] ne 1-06 by mouth ity of (SYNTHROID) 00:00: every [place] 175 mcg 00 morning. Medical tablet Branch levothyroxi 2014-04 Yes 175ug Take 1 Tab [facility] ne 1-06 by mouth ity of (SYNTHROID) 00:00: every [place] 175 mcg 00 morning. Medical tablet Branch levothyroxi 2014-04 Yes 175ug Take 1 Tab [facility] ne 1-06 by mouth ity of (SYNTHROID) 00:00: every [place] 175 mcg 00 morning. Medical tablet [place] levothyroxi 2015-1 Yes 175ug Take 1 Tab [facility] 1-06 by mouth ity of (SYNTHROID) 00:00: every [place] 175 mcg 00 morning. Medical tablet Branch hydralAZINE 2015-0 Yes 50mg Take 1 Tab [facility] (APRESOLINE 9-08 by mouth 2 it y of ) 50 mg 00:00: (two) [place] tablet 00 times Medical daily. Branch hydralAZINE 2015-0 Yes 50mg Take 1 Tab [facility] (APRESOLINE 9-08 by mouth 2 it y of ) 50 mg 00:00: (two) [place] tablet 00 times Medical daily. Branch hydralAZINE 2015-0 Yes 50mg Take 1 [facility] (APRESOLINE 9-08 by mouth 2 it y of ) 50 mg 00:00: (two) [place] tablet 00 times Medical daily. Branch hydralAZINE 2015-0 Yes 50mg Take 1 [facility] (APRESOLINE 9-08 by mouth 2 it y of ) 50 mg 00:00: (two) [place] tablet 00 times Medical daily. Branch hydralAZINE 2015-0 Yes 50mg Take 1 [facility] (APRESOLINE 9-08 by mouth 2 it y of ) 50 mg 00:00: (two) [place] tablet 00 times Medical daily. Branch hydralAZINE 2015-0 Yes 50mg Take 1 [facility] (APRESOLINE 9-08 by mouth 2 it y of ) 50 mg 00:00: (two) [place] tablet 00 times Medical daily. Branch hydralAZINE 2015-0 Yes 50mg Take 1 [facility] (APRESOLINE 9-08 by mouth 2 it y of ) 50 mg 00:00: (two) [place] tablet 00 times Medical daily. Branch hydralAZINE 2015-0 Yes 50mg Take 1 [facility] (APRESOLINE 9-08 by mouth 2 it y of ) 50 mg 00:00: (two) [place] tablet 00 times Medical daily. Branch hydralAZINE 2015-0 Yes 50mg Take 1 [facility] (APRESOLINE 9-08 by mouth 2 it y of ) 50 mg 00:00: (two) [place] tablet 00 times Medical daily. Branch hydralAZINE 2015-0 Yes 50mg Take 1 [facility] (APRESOLINE 9-08 by mouth 2 it y of ) 50 mg 00:00: (two) [place] tablet 00 times Medical daily. Branch hydralAZINE 2015-0 Yes 50mg Take 1 [facility] (APRESOLINE 9-08 by mouth 2 it y of ) 50 mg 00:00: (two) [place] tablet 00 times Medical daily. Branch hydralAZINE 2015-0 Yes 50mg Take 1 [facility] (APRESOLINE 9-08 by mouth 2 it y of ) 50 mg 00:00: (two) [place] tablet 00 times Medical daily. Branch hydralAZINE 2015-0 Yes 50mg Take 1 [facility] (APRESOLINE 9-08 by mouth 2 it y of ) 50 mg 00:00: (two) [place] tablet 00 times Medical daily. Branch hydralAZINE 2015-0 Yes 50mg Take 1 [facility] (APRESOLINE 9-08 by mouth 2 it y of ) 50 mg 00:00: (two) [place] tablet 00 times Medical daily. Branch hydralAZINE 2015-0 Yes 50mg Take 1 [facility] (APRESOLINE 9-08 by mouth 2 it y of ) 50 mg 00:00: (two) [place] tablet 00 times Medical daily. Branch hydralAZINE 2015-0 Yes 50mg Take 1 [facility] (APRESOLINE 9-08 by mouth 2 it y of ) 50 mg 00:00: (two) [place] tablet 00 times Medical daily. Branch hydralAZINE 2015-0 Yes 50mg Take 1 [facility] (APRESOLINE 9-08 by mouth 2 it y of ) 50 mg 00:00: (two) [place] tablet 00 times Medical daily. Branch hydralAZINE 2015-0 Yes 50mg Take 1 [facility] (APRESOLINE 9-08 by mouth 2 it y of ) 50 mg 00:00: (two) [place] tablet 00 times Medical daily. Branch hydralAZINE 2015-0 Yes 50mg Take 1 [facility] (APRESOLINE 9-08 by mouth 2 it y of ) 50 mg 00:00: (two) [place] tablet 00 times Medical daily. Branch hydralAZINE 2015-0 Yes 50mg Take 1 [facility] (APRESOLINE 9-08 by mouth 2 it y of ) 50 mg 00:00: (two) [place] tablet 00 times Medical daily. Branch hydralAZINE 2015-0 Yes 50mg Take 1 [facility] (APRESOLINE 9-08 by mouth 2 it y of ) 50 mg 00:00: (two) [place] tablet 00 times Medical daily. Branch hydralAZINE 2015-0 Yes 50mg Take 1 [facility] (APRESOLINE 9-08 by mouth 2 it y of ) 50 mg 00:00: (two) [place] tablet 00 times Medical daily. Branch hydralAZINE 2015-0 Yes 50mg Take 1 [facility] (APRESOLINE 9-08 by mouth 2 it y of ) 50 mg 00:00: (two) [place] tablet 00 times Medical daily. Branch hydralAZINE 2015-0 Yes 50mg Take 1 [facility] (APRESOLINE 9-08 by mouth 2 it y of ) 50 mg 00:00: (two) [place] tablet 00 times Medical daily. Branch hydralAZINE 2015-0 Yes 50mg Take 1 [facility] (APRESOLINE 9-08 by mouth 2 it y of ) 50 mg 00:00: (two) [place] tablet 00 times Medical daily. Branch hydralAZINE 2015-0 Yes 50mg Take 1 [facility] (APRESOLINE 9-08 by mouth 2 it y of ) 50 mg 00:00: (two) [place] tablet 00 times Medical daily. Branch hydralAZINE 2015-0 Yes 50mg Take 1 [facility] (APRESOLINE 9-08 by mouth 2 it y of ) 50 mg 00:00: (two) [place] tablet 00 times Medical daily. Branch hydralAZINE 2015-0 Yes 50mg Take 1 [facility] (APRESOLINE 9-08 by mouth 2 it y of ) 50 mg 00:00: (two) [place] tablet 00 times Medical daily. Branch hydralAZINE 2015-0 Yes 50mg Take 1 [facility] (APRESOLINE 9-08 by mouth 2 it y of ) 50 mg 00:00: (two) [place] tablet 00 times Medical daily. Branch hydralAZINE 2015-0 Yes 50mg Take 1 [facility] (APRESOLINE 9-08 by mouth 2 it y of ) 50 mg 00:00: (two) [place] tablet 00 times Medical daily. Branch hydralAZINE 2015-0 Yes 50mg Take 1 [facility] (APRESOLINE 9-08 by mouth 2 it y of ) 50 mg 00:00: (two) [place] tablet 00 times Medical daily. Branch hydralAZINE 2015-0 Yes 50mg Take 1 [facility] (APRESOLINE 9-08 by mouth 2 it y of ) 50 mg 00:00: (two) [place] tablet 00 times Medical daily. Branch hydralAZINE 2015-0 Yes 50mg Take 1 [facility] (APRESOLINE 9-08 by mouth 2 it y of ) 50 mg 00:00: (two) [place] tablet 00 times Medical daily. Branch hydralAZINE 2015-0 Yes 50mg Take 1 [facility] (APRESOLINE 9-08 by mouth 2 it y of ) 50 mg 00:00: (two) [place] tablet 00 times Medical daily. Branch hydralAZINE 2015-0 Yes 50mg Take 1 [facility] (APRESOLINE 9-08 by mouth 2 it y of ) 50 mg 00:00: (two) [place] tablet 00 times Medical daily. Branch hydralAZINE 2015-0 Yes 50mg Take 1 [facility] (APRESOLINE 9-08 by mouth 2 it y of ) 50 mg 00:00: (two) [place] tablet 00 times Medical daily. Branch hydralAZINE 2015-0 Yes 50mg Take 1 [facility] (APRESOLINE 9-08 by mouth 2 it y of ) 50 mg 00:00: (two) [place] tablet 00 times Medical daily. Branch hydralAZINE 2015-0 Yes 50mg Take 1 [facility] (APRESOLINE 9-08 by mouth 2 it y of ) 50 mg 00:00: (two) [place] tablet 00 times Medical daily. Branch hydralAZINE 2015-0 Yes 50mg Take 1 [facility] (APRESOLINE 9-08 by mouth 2 it y of ) 50 mg 00:00: (two) [place] tablet 00 times Medical daily. Branch hydralAZINE 2015-0 Yes 50mg Take 1 [facility] (APRESOLINE 9-08 by mouth 2 it y of ) 50 mg 00:00: (two) [place] tablet 00 times Medical daily. Branch hydralAZINE 2015-0 Yes 50mg Take 1 [facility] (APRESOLINE 9-08 by mouth 2 it y of ) 50 mg 00:00: (two) [place] tablet 00 times Medical daily. Branch hydralAZINE 2015-0 Yes 50mg Take 1 [facility] (APRESOLINE 9-08 by mouth 2 it y of ) 50 mg 00:00: (two) [place] tablet 00 times Medical daily. Branch hydralAZINE 2015-0 Yes 50mg Take 1 [facility] (APRESOLINE 9-08 by mouth 2 it y of ) 50 mg 00:00: (two) [place] tablet 00 times Medical daily. Branch hydralAZINE 2015-0 Yes 50mg Take 1 [facility] (APRESOLINE 9-08 by mouth 2 it y of ) 50 mg 00:00: (two) [place] tablet 00 times Medical daily. Branch hydralAZINE 2015-0 Yes 50mg Take 1 [facility] (APRESOLINE 9-08 by mouth 2 it y of ) 50 mg 00:00: (two) [place] tablet 00 times Medical daily. Branch hydralAZINE 2015-0 Yes 50mg Take 1 [facility] (APRESOLINE 9-08 by mouth 2 it y of ) 50 mg 00:00: (two) [place] tablet 00 times Medical daily. Branch hydralAZINE 2015-0 Yes 50mg Take 1 [facility] (APRESOLINE 9-08 by mouth 2 it y of ) 50 mg 00:00: (two) [place] tablet 00 times Medical daily. [facility] hydralAZINE 2015-0 Yes 50mg Take 1 Tab [facility] (APRESOLINE 9-08 by mouth 2 it y of ) 50 mg 00:00: (two) [place] tablet 00 times Medical daily. [facility] hydralAZINE 2015-0 Yes 50mg Take 1 Tab [facility] (APRESOLINE 9-08 by mouth 2 it y of ) 50 mg 00:00: (two) [place] tablet 00 times Medical daily. [facility] hydralAZINE 2015-0 Yes 50mg Take 1 Tab [facility] (APRESOLINE 9-08 by mouth 2 it y of ) 50 mg 00:00: (two) [place] tablet 00 times Medical daily. [facility] hydralAZINE 2015-0 Yes 50mg Take 1 Tab [facility] (APRESOLINE 9-08 by mouth 2 it y of ) 50 mg 00:00: (two) [place] tablet 00 times Medical daily. [facility] hydralAZINE 2015-0 Yes 50mg Take 1 Tab [facility] (APRESOLINE 9-08 by mouth 2 it y of ) 50 mg 00:00: (two) [place] tablet 00 times Medical daily. [facility] Cyclobenzap 2014-0 Yes Nilanjana 1 tablet [facility] rine HCl 5-10 Tracie l 00:00: Cyclobenzap 2014-0 Yes Nilanjana 1 tablet [facility] rine HCl 5-10 Tracie l 00:00: [place] 00 Cyclobenzap 2014-0 Yes Nilanjana 1 tablet Memoria rine HCl 5-10 Tracie l 00:00: Jann 00 Cyclobenzap 2014-0 Yes Nilanjana 1 tablet [facility] rine HCl 5-10 Tracie l 00:00: Cyclobenzap Yes Nilanjana 1 tablet [facility] rine HCl 5-10 Tracie l 00:00: Cyclobenzap Yes Nilanjana 1 tablet [facility] rine HCl 5-10 Tracie l 00:00: Cyclobenzap Yes Nilanjana 1 tablet [facility] rine HCl 5-10 Tracie l 00:00: Cyclobenzap Yes Nilanjana 1 tablet [facility] rine HCl 5-10 Tracie l 00:00: Cyclobenzap Yes Nilanjana 1 tablet [facility] rine HCl 5-10 Tracie l 00:00: Cyclobenzap Yes Nilanjana 1 tablet [facility] rine HCl 5-10 Tracie l 00:00: Ibuprofen Yes Nilanjana three Me moria 3-27 Tracie times a l 00:00: day Ibuprofen Yes Nilanjana three Me moria 3-27 Tracie times a l 00:00: day Ibuprofen Yes Nilanjana three Me moria 3-27 Tracie times a l 00:00: day Ibuprofen Yes Nilanjana three Me moria 3-27 Tracie times a l 00:00: day Ibuprofen Yes Nilanjana three Me moria 3-27 Tracie times a l 00:00: day Ibuprofen Yes Nilanjana three Me moria 3-27 Tracie times a l 00:00: day Ibuprofen Yes Nilanjana three Me moria 3-27 Tracie times a l 00:00: day Ibuprofen Yes Nilanjana three Me moria 3-27 Tracie times a l 00:00: day Ibuprofen Yes Nilanjana three Me moria 3-27 Tracie times a l 00:00: day Ibuprofen Yes Nilanjana three Me moria 3-27 Tracie times a l 00:00: day Ibuprofen Yes Nilanjana three Me moria 3-27 Tracie times a l 00:00: day Ibuprofen Yes Nilanjana three Me moria 3-27 Tracie times a l 00:00: day Ibuprofen Yes Nilanjana three Me moria 3-27 Tracie times a l 00:00: day Ibuprofen Yes Nilanjana three Me moria 3-27 Tracie times a l 00:00: day Ibuprofen Yes Nilanjana three Me moria 3-27 Tracie times a l 00:00: day Ibuprofen Yes Nilanjana three Me moria 3-27 Tracie times a l 00:00: day Ibuprofen Yes Nilanjana three Me moria 3-27 Tracie times a l 00:00: day Ibuprofen Yes Nilanjana three Me moria 3-27 Tracie times a l 00:00: day Ibuprofen Yes Nilanjana three Me moria 3-27 Tracie times a l 00:00: day Ibuprofen Yes Nilanjana three Me moria 3-27 Tracie times a l 00:00: day Folic Acid Yes Nilanjana TAKE ONE Memoria 2-11 Tracie TABLET BY l 00:00: MOUTH TIME DAILY Folic Acid Yes Nilanjana TAKE ONE Memoria 2-11 Tracie TABLET BY l 00:00: MOUTH TIME DAILY Folic Acid Yes Nilanjana TAKE ONE Memoria 2-11 Tracie TABLET BY l 00:00: MOUTH TIME DAILY Folic Acid Yes Nilanjana TAKE ONE Memoria 2-11 Tracie TABLET BY l 00:00: MOUTH TIME DAILY Folic Acid Yes Nilanjana TAKE ONE Memoria 2-11 Tracie TABLET BY l 00:00: MOUTH TIME DAILY Folic Acid Yes Nilanjana TAKE ONE Memoria 2-11 Tr[place]ie TABLET BY l 00:00: MOUTH TIME DAILY Folic Acid Yes Nilanjana TAKE ONE Memoria 2-11 Tracie TABLET BY l 00:00: MOUTH ONE [place] TIME DAILY Folic Acid Yes Nilanjana TAKE ONE Memoria 2-11 Tracie TABLET BY l 00:00: MOUTH ONE [place] TIME DAILY Folic Acid Yes Nilanjana TAKE ONE Memoria 2-11 Tracie TABLET BY l 00:00: MOUTH ONE [place] TIME DAILY Folic Acid Yes Nilanjana TAKE ONE Memoria 2-11 Tracie TABLET BY l 00:00: MOUTH ONE [place] TIME DAILY Folic Acid Yes Nilanjana TAKE ONE Memoria 2-11 Tracie TABLET BY l 00:00: MOUTH ONE [place] TIME DAILY Folic Acid Yes Nilanjana TAKE ONE Memoria 2-11 Tracie TABLET BY l 00:00: MOUTH ONE [place] 00 TIME DAILY Folic Acid Yes Nilanjana TAKE ONE Memoria 2-11 Tracie TABLET BY l 00:00: MOUTH ONE [place] 00 TIME DAILY Folic Acid Yes Nilanjana TAKE ONE Memoria 2-11 Tracie TABLET BY l 00:00: MOUTH ONE [place] 00 TIME DAILY Folic Acid Yes Nilanjana TAKE ONE Memoria 2-11 Tracie TABLET BY l 00:00: MOUTH ONE [place] 00 TIME DAILY Folic Acid Yes Nilanjana TAKE ONE Memoria 2-11 Tracie TABLET BY l 00:00: MOUTH ONE [place] 00 TIME DAILY Folic Acid Yes Nilanjana TAKE ONE Memoria 2-11 Tracie TABLET BY l 00:00: MOUTH ONE Jann TIME DAILY Folic Acid Yes Nilanjana TAKE ONE Memoria 2-11 Tracie TABLET BY l 00:00: MOUTH ONE [place]ann TIME DAILY Folic Acid Yes Nilanjana TAKE ONE Memoria 2-11 Tracie TABLET BY l 00:00: MOUTH ONE [place] TIME DAILY Folic Acid Yes Nilanjana TAKE ONE Memoria 2-11 Tracie TABLET BY l 00:00: MOUTH ONE [place] 00 TIME DAILY Accu-Chek Accu-Chek No Accu-Chek [place] Guide test Guide test Guide test Family strips USE strips USE strips USE Practic 6 STRIPS 6 STRIPS 6 STRIPS e EVERYDAY EVERYDAY EVERYDAY DIRECTED. DIRECTED. DIRECTED. Advair Advair No 1puff(s BID Advair [facility] Diskus 250 Diskus 250 ) Diskus 250 Family mcg-50 mcg-50 mcg-50 Practic mcg/dose mcg/dose mcg/dose e powder for powder for powder for inhalation inhalation inhalation Inhale 1 Inhale 1 Inhale 1 puff twice puff twice puff twice a day by a day by a day by inhalation inhalation inhalation route. route. route. albuterol albuterol No albuterol [place] sulfate 2.5 sulfate 2.5 sulfate Family mg/3 mL mg/3 mL 2.5 mg/3 Pract ic (0.083 %) (0.083 %) mL (0.083 e solution solution %) for for solution nebulizatio nebulizatio for n INHALE 1 n INHALE 1 nebulizati VIAL VIA VIAL VIA on INHALE NEBULIZER NEBULIZER 1 VIAL VIA FOUR TIMES FOUR TIMES NEBULIZER DAILY DAILY FOUR TIMES NEEDED NEEDED DAILY NEEDED albuterol albuterol No albuterol [place] sulfate HFA sulfate HFA sulfate Family 90 90 HFA 90 Practic mcg/actuati mcg/actuati mcg/actuat e on aerosol on aerosol ion inhaler inhaler aerosol INHALE TWO INHALE TWO inhaler (2) PUFF(S) (2) PUFF(S) INHALE TWO BY MOUTH BY MOUTH (2) EVERY FOUR EVERY FOUR PUFF(S) BY HOURS HOURS MOUTH NEEDED. NEEDED. EVERY FOUR HOURS NEEDED. amlodipine amlodipine No amlodipine [facility] 5 mg tablet 5 mg tablet 5 mg F amily TAKE ONE TAKE ONE tablet Pract ic (1) (1) TAKE ONE e TABLET(S) TABLET(S) (1) BY MOUTH BY MOUTH TABLET(S) ONCE A DAY. ONCE A DAY. BY MOUTH ONCE A DAY. amoxicillin amoxicillin No amoxicilli [facility] [phone] Family mg-potassiu mg-potassiu mg-potassi Practic m m um e clavulanate clavulanate clavulanat 125 mg 125 mg e 125 mg tablet TAKE tablet TAKE tablet ONE (1) ONE (1) TAKE ONE TABLET(S) TABLET(S) (1) BY MOUTH BY MOUTH TABLET(S) EVERY 12 EVERY 12 BY MOUTH HOURS FOR 7 HOURS FOR 7 EVERY 12 DAYS. DAYS. HOURS FOR 7 DAYS. baclofen 10 baclofen 10 No baclofen [place] mg tablet mg tablet 10 mg Fami ly TAKE ONE TAKE ONE tablet Pract ic (1) (1) TAKE ONE e TABLET(S) TABLET(S) (1) BY MOUTH BY MOUTH TABLET(S) THREE TIMES THREE TIMES BY MOUTH A DAY A DAY THREE NEEDED. NEEDED. TIMES A DAY NEEDED. Baqsimi 3 Baqsimi 3 No Baqsimi 3 [place] mg/actuatio mg/actuatio mg/actuati Family n nasal n nasal on nasal Pract ic spray USE spray USE spray USE e DIRECTED DIRECTED ONCE ONCE DIRECTED NASALLY FOR NASALLY FOR ONCE HYPOGLYCEMI HYPOGLYCEMI NASALLY A EPISODE A EPISODE FOR HYPOGLYCEM IA EPISODE bupropion bupropion No bupropion [facility] HCl XL 150 HCl XL 150 HCl XL 150 Family mg 24 hr mg 24 hr mg 24 hr Pra ctic tablet, tablet, tablet, e extended extended extended release release release TAKE ONE TAKE ONE TAKE ONE (1) (1) (1) TABLET(S) TABLET(S) TABLET(S) BY MOUTH BY MOUTH BY MOUTH EVERY EVERY EVERY MORNING. MORNING. MORNING. carvedilol carvedilol No carvedilol [facility] 25 mg 25 mg 25 mg Family tablet TAKE tablet TAKE tablet Practic ONE (1) ONE (1) TAKE ONE e TABLET(S) TABLET(S) (1) BY MOUTH BY MOUTH TABLET(S) TWICE A DAY TWICE A DAY BY MOUTH WITH FOOD. WITH FOOD. TWICE A DAY WITH FOOD. celecoxib celecoxib No celecoxib [facility] 100 mg 100 mg 100 mg Family capsule capsule capsule Practi c TAKE ONE TAKE ONE TAKE ONE e (1) (1) (1) CAPSULE(S) CAPSULE(S) CAPSULE(S) BY MOUTH BY MOUTH BY MOUTH TWICE A DAY TWICE A DAY TWICE A WITH FOOD WITH FOOD DAY WITH NEEDED. NEEDED. FOOD NEEDED. cetirizine cetirizine No cetirizine [facility] 10 mg 10 mg 10 mg Family tablet TAKE tablet TAKE tablet Practic 1 TABLET BY 1 TABLET BY TAKE 1 e MOUTH EVERY MOUTH EVERY TABLET BY DAY DAY MOUTH EVERY DAY clindamycin clindamycin No clindamyci [facility] HCl 150 mg HCl 150 mg n HCl 150 Family capsule capsule mg capsule Pra ctic TAKE 2 TAKE 2 TAKE 2 e CAPSULES BY CAPSULES BY CAPSULES MOUTH EVERY MOUTH EVERY BY MOUTH 6 HOURS FOR 6 HOURS FOR EVERY 6 10 DAYS 10 DAYS HOURS FOR 10 DAYS cyanocobala cyanocobala No cyanocobal [place] min (vit min (vit merlos (vit Fa thomas B-12) 1,000 B-12) 1,000 B-12) Practic mcg/mL mcg/mL 1,000 e injection injection mcg/mL solution solution injection INJECT ONE INJECT ONE solution (1) ML(S) (1) ML(S) INJECT ONE INTRAMUSVCU INTRAMUSVCU (1) ML(S) LARLY ONCE LARLY ONCE INTRAMUSVC A DAY FOR 7 A DAY FOR 7 ULARLY DAYS, THEN DAYS, THEN ONCE A DAY ONCE A WEEK ONCE A WEEK FOR 7 FOR 1 FOR 1 DAYS, THEN MONTH. MONTH. ONCE A WEEK FOR 1 MONTH. cyclobenzap cyclobenzap No cyclobenza [facility] rine 10 mg rine 10 mg chelsey 10 Family tablet TAKE tablet TAKE mg tablet Practic 1 TABLET BY 1 TABLET BY TAKE 1 e MOUTH THREE MOUTH THREE TABLET BY TIMES DAILY TIMES DAILY MOUTH NEEDED NEEDED THREE TIMES DAILY NEEDED diclofenac diclofenac No diclofenac [facility] potassium potassium potassium Family 50 mg 50 mg 50 mg Practic tablet TAKE tablet TAKE tablet e ONE (1) ONE (1) TAKE ONE TABLET(S) TABLET(S) (1) BY MOUTH BY MOUTH TABLET(S) TWICE A TWICE A BY MOUTH DAY. DAY. TWICE A DAY. diclofenac diclofenac No diclofenac [facility] sodium 50 sodium 50 sodium 50 Family mg mg mg Practic tablet,jed tablet,jed tablet,del e yed release yed release ayed TAKE ONE TAKE ONE release (1) (1) TAKE ONE TABLET(S) TABLET(S) (1) BY MOUTH BY MOUTH TABLET(S) TWICE A TWICE A BY MOUTH DAY. DAY. TWICE A DAY. diclofenac diclofenac No diclofenac [facility] sodium 75 sodium 75 sodium 75 Family mg mg mg Practic tablet,jed tablet,jed tablet,del e yed release yed release ayed release Enbrel 50 Enbrel 50 No 1mL Q1W Enbrel 50 [place] mg/mL (1 mg/mL (1 mg/mL (1 Fam gael mL) mL) mL) Practic subcutaneou subcutaneou subcutaneo e s syringe s syringe us syringe Inject 1 mL Inject 1 mL Inject 1 every week every week mL every by by week by subcutaneou subcutaneou subcutaneo s route. s route. us route. folic acid folic acid No folic acid [place] 1 mg tablet 1 mg tablet 1 mg F amily TAKE ONE TAKE ONE tablet Pract ic (1) (1) TAKE ONE e TABLET(S) TABLET(S) (1) BY MOUTH BY MOUTH TABLET(S) ONCE A DAY. ONCE A DAY. BY MOUTH ONCE A DAY. Fosamax 70 Fosamax 70 No 1 Q1W Fosamax 70 [place] mg tablet mg tablet mg tablet Family Take 1 Take 1 Take 1 Practic tablet tablet tablet e every week every week every week by oral by oral by oral route. route. route. FreeStyle FreeStyle No FreeStyle [facility] Lindy 14 Lindy 14 Lindy 14 Fam gael Day Sensor Day Sensor Day Sensor Practic e FreeStyle FreeStyle No FreeStyle [facility] Lind[place] 2 Lindy 2 Lindy 2 Family [place] USE [place] USE [place] USE Practic DIRECTED DIRECTED e TO MONITOR TO MONITOR DIRECTED BLOOD SUGAR BLOOD SUGAR TO MONITOR BLOOD SUGAR FreeStyle FreeStyle No FreeStyle [facility] [place] 2 Lindy 2 Lindy 2 Family Sensor kit Sensor kit Sensor kit Practic USE USE USE e DIRECTED DIRECTED DIRECTED AND CHANGE AND CHANGE AND CHANGE SENSORS SENSORS SENSORS EVERY 14 EVERY 14 EVERY 14 DAYS DAYS DAYS gabapentin gabapentin No gabapentin [facility] 800 mg 800 mg 800 mg Family tablet TAKE tablet TAKE tablet Practic ONE (1) ONE (1) TAKE ONE e TABLET(S) TABLET(S) (1) BY MOUTH BY MOUTH TABLET(S) THREE TIMES THREE TIMES BY MOUTH A DAY. A DAY. THREE TIMES A DAY. Glucagon Glucagon No Glucagon [facility] Family Kit 1 mg Kit 1 mg Kit 1 mg Pra ctic injection injection injection e kit Take by kit Take by kit Take injection injection by route. route. injection route. hydralazine hydralazine No hydralazin [facility] 25 mg 25 mg e 25 mg Family tablet TAKE tablet TAKE tablet Practic ONE (1) ONE (1) TAKE ONE e TABLET(S) TABLET(S) (1) BY MOUTH BY MOUTH TABLET(S) TWICE A DAY TWICE A DAY BY MOUTH WITH FOOD. WITH FOOD. TWICE A DAY WITH FOOD. hydralazine hydralazine No 1 BID hydralazin [facility] 50 mg 50 mg e 50 mg Family tablet Take tablet Take tablet Practic 1 tablet 1 tablet Take 1 e twice a day twice a day tablet by oral by oral twice a route. route. day by oral route. Hypodermic Hypodermic No Hypodermic [facility] 23 Family gauge x 1" gauge x 1" gauge x 1" Practic e ibuprofen ibuprofen No 1 Q7H ibuprofen [facility] 800 mg 800 mg 800 mg Family tablet Take tablet Take tablet Practic 1 tablet 1 tablet Take 1 e every 6-8 every 6-8 tablet hours by hours by every 6-8 oral route oral route hours by as as oral route directed. directed. as directed. irbesartan irbesartan No irbesartan [facility] 150 mg 150 mg 150 mg Family tablet TAKE tablet TAKE tablet Practic ONE (1) ONE (1) TAKE ONE e TABLET(S) TABLET(S) (1) BY MOUTH BY MOUTH TABLET(S) TWICE A TWICE A BY MOUTH DAY. DAY. TWICE A DAY. Lyumjev Lyadrianosheila No Lycarolin Silva e U-100 U-100 U-100 Family Insulin 100 Insulin 100 Insulin Practic unit/mL unit/mL 100 e subcutaneou subcutaneou unit/mL s solution s solution subcutaneo Use with Use with us insulin insulin solution pump; TDD pump; TDD Use with 165 165 insulin pump; TDD 165 melatonin 3 melatonin 3 No melatonin [place] mg tablet mg tablet 3 mg Famil y Take by Take by tablet Practic oral route. oral route. Take by e oral route. methocarbam methocarbam No methocarba [facility] ol 500 mg ol 500 mg mol 500 mg Family tablet tablet tablet Practic e methotrexat methotrexat No methotrexa [facility] e 2.5 mg e 2.5 mg te 2.5 mg Fa thomas tablet Take tablet Take tablet Practic by oral by oral Take by e route. route. oral route. methylpredn methylpredn No methylpred [facility] isolone 4 isolone 4 nisolone 4 Family mg tablets mg tablets mg tablets Practic in a dose in a dose in a dose e pack USE pack USE pack USE DIRECTED DIRECTED DIRECTED MiniMed MiniMed No MiniMed Vill[facility] e [id number] Family Insulin Insulin Insulin Practi c Pump Pump Pump e montelukast montelukast No montelukas [facility] 10 mg 10 mg t 10 mg Family tablet tablet tablet Practic e mupirocin 2 mupirocin 2 No mupirocin [place] % topical % topical 2 % Famil y ointment ointment topical Prac tic ointment e ondansetron ondansetron No ondansetro [facility] HCl 4 mg HCl 4 mg n HCl 4 mg F amily tablet TAKE tablet TAKE tablet Practic ONE (1) ONE (1) TAKE ONE e TABLET(S) TABLET(S) (1) BY MOUTH BY MOUTH TABLET(S) EVERY EIGHT EVERY EIGHT BY MOUTH HOURS HOURS EVERY NEEDED. NEEDED. EIGHT HOURS NEEDED. Ozempic 1 Ozempic 1 No 1mg Q1W Ozempic 1 [place] mg/dose (4 mg/dose (4 mg/dose (4 Family mg/3 mL) mg/3 mL) mg/3 mL) Pra ctic subcutaneou subcutaneou subcutaneo e s pen s pen us pen injector injector injector Inject 1 mg Inject 1 mg Inject 1 every week every week mg every by by week by subcutaneou subcutaneou subcutaneo s route for s route for us route 30 days. 30 days. for 30 days. pantoprazol pantoprazol No pantoprazo [facility] e 40 mg e 40 mg le 40 mg Famil y tablet,jed tablet,jed tablet,del Practic yed release yed release ayed e TAKE ONE TAKE ONE release (1) (1) TAKE ONE TABLET(S) TABLET(S) (1) BY MOUTH BY MOUTH TABLET(S) TWICE A TWICE A BY MOUTH DAY. DAY. TWICE A DAY. risedronate risedronate [facility] 35 mg 35 mg e 35 mg Family tablet TAKE tablet TAKE tablet Practic ONE (1) ONE (1) TAKE ONE e TABLET(S) TABLET(S) (1) BY MOUTH BY MOUTH TABLET(S) EVERY WEEK. EVERY WEEK. BY MOUTH EVERY WEEK. [facility] mg e 35 mg Family tablet,jed tablet,jed tablet,del Practic yed release yed release ayed e release rosuvastati rosuvastati No rosuvastat [facility] n 20 mg n 20 mg in 20 mg Famil y tablet TAKE tablet TAKE tablet Practic ONE (1) ONE (1) TAKE ONE e TABLET(S) TABLET(S) (1) BY MOUTH BY MOUTH TABLET(S) ONCE A DAY. ONCE A DAY. BY MOUTH ONCE A DAY. Synthroid Synthroid Synthroid [facility] 200 mcg 200 mcg 200 mcg Family tablet TAKE tablet TAKE tablet Practic ONE (1) ONE (1) TAKE ONE e TABLET(S) TABLET(S) (1) BY MOUTH BY MOUTH TABLET(S) EVERY EVERY BY MOUTH MORNING ON MORNING ON EVERY AN EMPTY AN EMPTY MORNING ON STOMACH. STOMACH. AN EMPTY STOMACH. Synthroid Synthroid No Synthroid [facility] 50 mcg 50 mcg 50 mcg Family tablet TAKE tablet TAKE tablet Practic ONE (1) ONE (1) TAKE ONE e TABLET(S) TABLET(S) (1) BY MOUTH IN BY MOUTH IN TABLET(S) THE MORNING THE MORNING BY MOUTH ON AN EMPTY ON AN EMPTY IN THE STOMACH. STOMACH. MORNING ON AN EMPTY STOMACH. tramadol 50 tramadol 50 No tramadol [place] mg tablet mg tablet 50 mg Fami ly TAKE ONE TAKE ONE tablet Pract ic (1) (1) TAKE ONE e TABLET(S) TABLET(S) (1) BY MOUTH BY MOUTH TABLET(S) EVERY EIGHT EVERY EIGHT BY MOUTH HOURS HOURS EVERY NEEDED. NEEDED. EIGHT HOURS NEEDED. Trelegy Trelegy No Trelegy [facility] e Ellipta 100 Ellipta 100 Ellipta Family mcg-62.5 mcg-62.5 100 Practic mcg-25 mcg mcg-25 mcg mcg-62.5 e powder for powder for mcg-25 mcg inhalation inhalation powder for INHALE ONE INHALE ONE inhalation PUFF BY PUFF BY INHALE ONE MOUTH EVERY MOUTH EVERY PUFF BY DAY DAY MOUTH EVERY DAY triamcinolo triamcinolo No triamcinol [facility] ne ne one Family acetonide acetonide acetonide Practic 0.1 % 0.1 % 0.1 % e topical topical topical cream cream cream [facility] 1.5 mg/0.5 1.5 mg/0.5 1.5 mg/0.5 Family mL mL mL Practic subcutaneou subcutaneou subcutaneo e s pen s pen us pen injector injector injector INJECT 1.5 INJECT 1.5 INJECT 1.5 MG UNDER MG UNDER MG UNDER THE SKIN THE SKIN THE SKIN ONCE ONCE ONCE WEEKLY. WEEKLY. WEEKLY. Vitamin B12 Vitamin B12 No Vitamin [facility] B12 Family Practic e Accu-Chek Accu-Chek No Accu-Chek [facility] Guide test Guide test Guide test Family strips USE strips USE strips USE Practic 6 STRIPS 6 STRIPS 6 STRIPS e EVERYDAY EVERYDAY EVERYDAY DIRECTED. DIRECTED. DIRECTED. acetaminoph acetaminoph No acetaminop [facility] en 300 en 300 hen 300 Family mg-codeine mg-codeine mg-codeine Practic 30 mg 30 mg 30 mg e tablet TAKE tablet TAKE tablet ONE (1) ONE (1) TAKE ONE TABLET(S) TABLET(S) (1) BY MOUTH BY MOUTH TABLET(S) EVERY EIGHT EVERY EIGHT BY MOUTH HOURS HOURS EVERY NEEDED FOR NEEDED FOR EIGHT PAIN. PAIN. HOURS NEEDED FOR PAIN. Advair Advair No 1puff(s BID Advair [facility] [facility] Diskus 250 Diskus 250 ) Diskus 250 Family mcg-50 mcg-50 mcg-50 Practic mcg/dose mcg/dose mcg/dose e powder for powder for powder for inhalation inhalation inhalation Inhale 1 Inhale 1 Inhale 1 puff twice puff twice puff twice a day by a day by a day by inhalation inhalation inhalation route. route. route. albuterol albuterol No albuterol [facility] sulfate 2.5 sulfate 2.5 sulfate Family mg/3 mL mg/3 mL 2.5 mg/3 Pract ic (0.083 %) (0.083 %) mL (0.083 e solution solution %) for for solution nebulizatio nebulizatio for n INHALE 1 n INHALE 1 nebulizati VIAL VIA VIAL VIA on INHALE NEBULIZER NEBULIZER 1 VIAL VIA FOUR TIMES FOUR TIMES NEBULIZER DAILY DAILY FOUR TIMES NEEDED NEEDED DAILY NEEDED albuterol albuterol No albuterol [facility] sulfate HFA sulfate HFA sulfate Family 90 90 HFA 90 Practic mcg/actuati mcg/actuati mcg/actuat e on aerosol on aerosol ion inhaler inhaler aerosol INHALE TWO INHALE TWO inhaler (2) PUFF(S) (2) PUFF(S) INHALE TWO BY MOUTH BY MOUTH (2) EVERY FOUR EVERY FOUR PUFF(S) BY HOURS HOURS MOUTH NEEDED. NEEDED. EVERY FOUR HOURS NEEDED. amlodipine amlodipine No amlodipine [facility] 5 mg tablet 5 mg tablet 5 mg F amily TAKE ONE TAKE ONE tablet Pract ic (1) (1) TAKE ONE e TABLET(S) TABLET(S) (1) BY MOUTH BY MOUTH TABLET(S) ONCE A DAY. ONCE A DAY. BY MOUTH ONCE A DAY. amoxicillin amoxicillin No amoxicilli [facility] [phone] Family mg-potassiu mg-potassiu mg-potassi Practic m m um e clavulanate clavulanate clavulanat 125 mg 125 mg e 125 mg tablet TAKE tablet TAKE tablet ONE (1) ONE (1) TAKE ONE TABLET(S) TABLET(S) (1) BY MOUTH BY MOUTH TABLET(S) EVERY 12 EVERY 12 BY MOUTH HOURS FOR 7 HOURS FOR 7 EVERY 12 DAYS. DAYS. HOURS FOR 7 DAYS. baclofen 10 baclofen 10 No baclofen [place] mg tablet mg tablet 10 mg Fami ly TAKE ONE TAKE ONE tablet Pract ic (1) TABLET (1) TABLET TAKE ONE e BY MOUTH 3 BY MOUTH 3 (1) TABLET TIMES PER TIMES PER BY MOUTH 3 DAY DAY TIMES PER NEEDED. NEEDED. DAY NEEDED. Baqsimi 3 Baqsimi 3 No Baqsimi 3 [place] mg/actuatio mg/actuatio mg/actuati Family n nasal n nasal on nasal Pract ic spray USE spray USE spray USE e DIRECTED DIRECTED ONCE ONCE DIRECTED NASALLY FOR NASALLY FOR ONCE HYPOGLYCEMI HYPOGLYCEMI NASALLY A EPISODE A EPISODE FOR HYPOGLYCEM IA EPISODE bupropion bupropion No bupropion [place] HCl XL 150 HCl XL 150 HCl XL 150 Family mg 24 hr mg 24 hr mg 24 hr Pra ctic tablet, tablet, tablet, e extended extended extended release release release TAKE ONE TAKE ONE TAKE ONE (1) (1) (1) TABLET(S) TABLET(S) TABLET(S) BY MOUTH BY MOUTH BY MOUTH EVERY EVERY EVERY MORNING. MORNING. MORNING. carvedilol carvedilol No carvedilol [facility] 25 mg 25 mg 25 mg Family tablet TAKE tablet TAKE tablet Practic ONE (1) ONE (1) TAKE ONE e TABLET(S) TABLET(S) (1) BY MOUTH BY MOUTH TABLET(S) TWICE A DAY TWICE A DAY BY MOUTH WITH FOOD. WITH FOOD. TWICE A DAY WITH FOOD. celecoxib celecoxib No celecoxib [facility] 100 mg 100 mg 100 mg Family capsule capsule capsule Practi c TAKE ONE TAKE ONE TAKE ONE e (1) (1) (1) CAPSULE(S) CAPSULE(S) CAPSULE(S) BY MOUTH BY MOUTH BY MOUTH TWICE A DAY TWICE A DAY TWICE A WITH FOOD WITH FOOD DAY WITH NEEDED. NEEDED. FOOD NEEDED. cetirizine cetirizine No cetirizine [facility] 10 mg 10 mg 10 mg Family tablet TAKE tablet TAKE tablet Practic 1 TABLET BY 1 TABLET BY TAKE 1 e MOUTH EVERY MOUTH EVERY TABLET BY DAY DAY MOUTH EVERY DAY clindamycin clindamycin No clindamyci [place] HCl 150 mg HCl 150 mg n HCl 150 Family capsule capsule mg capsule Pra ctic TAKE 2 TAKE 2 TAKE 2 e CAPSULES BY CAPSULES BY CAPSULES MOUTH EVERY MOUTH EVERY BY MOUTH 6 HOURS FOR 6 HOURS FOR EVERY 6 10 DAYS 10 DAYS HOURS FOR 10 DAYS cyanocobala cyanocobala No cyanocobal [place] min (vit min (vit merlos (vit Fa thomas B-12) 1,000 B-12) 1,000 B-12) Practic mcg/mL mcg/mL 1,000 e injection injection mcg/mL solution solution injection INJECT ONE INJECT ONE solution (1) ML(S) (1) ML(S) INJECT ONE INTRAMUSVCU INTRAMUSVCU (1) ML(S) LARLY ONCE LARLY ONCE INTRAMUSVC A DAY FOR 7 A DAY FOR 7 ULARLY DAYS, THEN DAYS, THEN ONCE A DAY ONCE A WEEK ONCE A WEEK FOR 7 FOR 1 FOR 1 DAYS, THEN MONTH. MONTH. ONCE A WEEK FOR 1 MONTH. cyclobenzap cyclobenzap No cyclobenza [facility] rine 10 mg rine 10 mg chelsey 10 Family tablet TAKE tablet TAKE mg tablet Practic 1 TABLET BY 1 TABLET BY TAKE 1 e MOUTH THREE MOUTH THREE TABLET BY TIMES DAILY TIMES DAILY MOUTH NEEDED NEEDED THREE TIMES DAILY NEEDED diclofenac diclofenac No [facility] potassium potassium potassium Family 50 mg 50 mg 50 mg Practic tablet TAKE tablet TAKE tablet e ONE (1) ONE (1) TAKE ONE TABLET(S) TABLET(S) (1) BY MOUTH BY MOUTH TABLET(S) TWICE A TWICE A BY MOUTH DAY. DAY. TWICE A DAY. diclofenac diclofenac No diclofenac [facility] sodium 50 sodium 50 sodium 50 Family mg mg mg Practic tablet,jed tablet,jed tablet,del e yed release yed release ayed TAKE ONE TAKE ONE release (1) (1) TAKE ONE TABLET(S) TABLET(S) (1) BY MOUTH BY MOUTH TABLET(S) TWICE A DAY TWICE A DAY BY MOUTH NEEDED. NEEDED. TWICE A DAY NEEDED. diclofenac diclofenac No diclofenac [facility] sodium 75 sodium 75 sodium 75 Family mg mg mg Practic tablet,jed tablet,jed tablet,del e yed release yed release ayed release Enbrel 50 Enbrel 50 No 1mL Q1W Enbrel 50 [place] mg/mL (1 mg/mL (1 mg/mL (1 Fam gael mL) mL) mL) Practic subcutaneou subcutaneou subcutaneo e s syringe s syringe us syringe Inject 1 mL Inject 1 mL Inject 1 every week every week mL every by by week by subcutaneou subcutaneou subcutaneo s route. s route. us route. Enbrel Mini Enbrel Mini No Enbrel [place] 50 mg/mL (1 50 mg/mL (1 Mini 50 Family mL) mL) mg/mL (1 Practic subcutaneou subcutaneou mL) e s cartridge s cartridge subcutaneo us cartridge folic acid folic acid No folic acid [place] 1 mg tablet 1 mg tablet 1 mg F amily TAKE ONE TAKE ONE tablet Pract ic (1) (1) TAKE ONE e TABLET(S) TABLET(S) (1) BY MOUTH BY MOUTH TABLET(S) ONCE A DAY. ONCE A DAY. BY MOUTH ONCE A DAY. Fosamax 70 Fosamax 70 No 1 Q1W Fosamax 70 [place] mg tablet mg tablet mg tablet Family Take 1 Take 1 Take 1 Practic tablet tablet tablet e every week every week every week by oral by oral by oral route. route. route. FreeStyle FreeStyle No FreeStyle [facility] Lindy 14 Lindy 14 Lindy 14 Fam gael Day Sensor Day Sensor Day Sensor Practic e FreeStyle FreeStyle No FreeStyle [facility] Lind[place] 2 Lindy 2 Lindy 2 Family [place] USE [place] USE [place] USE Practic DIRECTED DIRECTED e TO MONITOR TO MONITOR DIRECTED BLOOD SUGAR BLOOD SUGAR TO MONITOR BLOOD SUGAR FreeStyle FreeStyle No FreeStyle [facility] [place] 2 Lind[place] 2 Lindy 2 Family Sensor kit Sensor kit Sensor kit Practic USE USE USE e DIRECTED DIRECTED DIRECTED AND CHANGE AND CHANGE AND CHANGE SENSORS SENSORS SENSORS EVERY 14 EVERY 14 EVERY 14 DAYS DAYS DAYS gabapentin gabapentin No gabapentin [facility] 800 mg 800 mg 800 mg Family tablet TAKE tablet TAKE tablet Practic ONE (1) ONE (1) TAKE ONE e TABLET(S) TABLET(S) (1) BY MOUTH BY MOUTH TABLET(S) THREE TIMES THREE TIMES BY MOUTH A DAY. A DAY. THREE TIMES A DAY. Glucagon Glucagon No Glucagon [facility] Family Kit 1 mg Kit 1 mg Kit 1 mg Pra ctic injection injection injection e kit Take by kit Take by kit Take injection injection by route. route. injection route. hydralazine hydralazine No hydralazin [facility] 25 mg 25 mg e 25 mg Family tablet TAKE tablet TAKE tablet Practic ONE (1) ONE (1) TAKE ONE e TABLET(S) TABLET(S) (1) BY MOUTH BY MOUTH TABLET(S) TWICE A DAY TWICE A DAY BY MOUTH WITH FOOD. WITH FOOD. TWICE A DAY WITH FOOD. hydralazine hydralazine No 1 BID hydralazin [facility] 50 mg 50 mg e 50 mg Family tablet Take tablet Take tablet Practic 1 tablet 1 tablet Take 1 e twice a day twice a day tablet by oral by oral twice a route. route. day by oral route. Hypodermic Hypodermic No Hypodermic [facility] Family gauge x 1" gauge x 1" gauge x 1" Practic e ibuprofen ibuprofen No 1 Q7H ibuprofen [facility] 800 mg 800 mg 800 mg Family tablet Take tablet Take tablet Practic 1 tablet 1 tablet Take 1 e every 6-8 every 6-8 tablet hours by hours by every 6-8 oral route oral route hours by as as oral route directed. directed. as directed. irbesartan irbesartan No irbesartan [facility] 150 mg 150 mg 150 mg Family tablet TAKE tablet TAKE tablet Practic ONE (1) ONE (1) TAKE ONE e TABLET(S) TABLET(S) (1) BY MOUTH BY MOUTH TABLET(S) TWICE A TWICE A BY MOUTH DAY. DAY. TWICE A DAY. Lyumjev Lyumjev No Lyumjev [place] e U-100 U-100 U-100 Family Insulin 100 Insulin 100 Insulin Practic unit/mL unit/mL 100 e subcutaneou subcutaneou unit/mL s solution s solution subcutaneo Use with Use with us insulin insulin solution pump; TDD pump; TDD Use with 165 165 insulin pump; TDD 165 melatonin 3 melatonin 3 No melatonin [place] mg tablet mg tablet 3 mg Famil y Take by Take by tablet Practic oral route. oral route. Take by e oral route. methocarbam methocarbam No methocarba [facility] ol 500 mg ol 500 mg mol 500 mg Family tablet tablet tablet Practic e methotrexat methotrexat No methotrexa [facility] e 2.5 mg e 2.5 mg te 2.5 mg Fa thomas tablet Take tablet Take tablet Practic by oral by oral Take by e route. route. oral route. methylpredn methylpredn No methylpred [facility] isolone 4 isolone 4 nisolone 4 Family mg tablets mg tablets mg tablets Practic in a dose in a dose in a dose e pack USE pack USE pack USE DIRECTED BY DIRECTED BY PACKAGE PACKAGE DIRECTED INSTRUCTION INSTRUCTION BY PACKAGE S. S. INSTRUCTIO NS. MiniMed MiniMed No MiniMed [place] e [id number] [id number] 770G Family Insulin Insulin Insulin Practi c Pump Pump Pump e montelukast montelukast No montelukas [facility] 10 mg 10 mg t 10 mg Family tablet tablet tablet Practic e mupirocin 2 mupirocin 2 No mupirocin [place] % topical % topical 2 % Famil y ointment ointment topical Prac tic APPLY A APPLY A ointment e THIN LAYER THIN LAYER APPLY A TO THE EARS TO THE EARS THIN LAYER , LEGS , , LEGS , TO THE SCALP, NOSE SCALP, NOSE EARS , AND AND LEGS , SHOULDER SHOULDER SCALP, TWICE DAILY TWICE DAILY NOSE AND NEEDED. NEEDED. SHOULDER TWICE DAILY NEEDED. ondansetron ondansetron No ondansetro [facility] HCl 4 mg HCl 4 mg n HCl 4 mg F amily tablet TAKE tablet TAKE tablet Practic ONE (1) ONE (1) TAKE ONE e TABLET BY TABLET BY (1) TABLET MOUTH EVERY MOUTH EVERY BY MOUTH 8 HOURS 8 HOURS EVERY 8 NEEDED. NEEDED. HOURS NEEDED. oseltamivir [facility] 75 mg r 75 mg Family capsule capsule capsule Practi c TAKE ONE TAKE ONE TAKE ONE e (1) (1) (1) CAPSULE(S) CAPSULE(S) CAPSULE(S) BY MOUTH BY MOUTH BY MOUTH TWICE A DAY TWICE A DAY TWICE A FOR 5 DAYS. FOR 5 DAYS. DAY FOR 5 DAYS. Ozempic 1 Ozempic 1 No 1mg Q1W Ozempic 1 [place] mg/dose (4 mg/dose (4 mg/dose (4 Family mg/3 mL) mg/3 mL) mg/3 mL) Pra ctic subcutaneou subcutaneou subcutaneo e s pen s pen us pen injector injector injector Inject 1 mg Inject 1 mg Inject 1 every week every week mg every by by week by subcutaneou subcutaneou subcutaneo s route for s route for us route 30 days. 30 days. for 30 days. pantoprazol pantoprazol No pantoprazo [place] e 40 mg e 40 mg le 40 mg Famil y tablet,jed tablet,jed tablet,del Practic yed release yed release ayed e TAKE ONE TAKE ONE release (1) (1) TAKE ONE TABLET(S) TABLET(S) (1) BY MOUTH BY MOUTH TABLET(S) TWICE A TWICE A BY MOUTH DAY. DAY. TWICE A DAY. [facility]ate [facility] mg e 35 mg Family tablet TAKE tablet TAKE tablet Practic ONE (1) ONE (1) TAKE ONE e TABLET(S) TABLET(S) (1) BY MOUTH BY MOUTH TABLET(S) EVERY WEEK. EVERY WEEK. BY MOUTH EVERY WEEK. [facility]isedronate [facility] mg 35 mg e 35 mg Family tablet,ejd tablet,jed tablet,del Practic yed release yed release ayed e release rosuvastati rosuvastati No rosuvastat [facility] n 20 mg n 20 mg in 20 mg Famil y tablet TAKE tablet TAKE tablet Practic ONE (1) ONE (1) TAKE ONE e TABLET(S) TABLET(S) (1) BY MOUTH BY MOUTH TABLET(S) ONCE A DAY. ONCE A DAY. BY MOUTH ONCE A DAY. Synthroid Synthroid No Synthroid [facility] 200 mcg 200 mcg 200 mcg Family tablet TAKE tablet TAKE tablet Practic ONE (1) ONE (1) TAKE ONE e TABLET(S) TABLET(S) (1) BY MOUTH BY MOUTH TABLET(S) EVERY EVERY BY MOUTH MORNING ON MORNING ON EVERY AN EMPTY AN EMPTY MORNING ON STOMACH. STOMACH. AN EMPTY STOMACH. Synthroid Synthroid No Synthroid [facility] 50 mcg 50 mcg 50 mcg Family tablet TAKE tablet TAKE tablet Practic ONE (1) ONE (1) TAKE ONE e TABLET(S) TABLET(S) (1) BY MOUTH IN BY MOUTH IN TABLET(S) THE MORNING THE MORNING BY MOUTH ON AN EMPTY ON AN EMPTY IN THE STOMACH. STOMACH. MORNING ON AN EMPTY STOMACH. tramadol 50 tramadol 50 No tramadol [place] mg tablet mg tablet 50 mg Fami ly TAKE ONE TAKE ONE tablet Pract ic (1) TABLET (1) TABLET TAKE ONE e BY MOUTH BY MOUTH (1) TABLET EVERY 8 EVERY 8 BY MOUTH HOURS HOURS EVERY 8 NEEDED. NEEDED. HOURS NEEDED. Trelegy Trelegy No Trelegy [place] [facility] Ellipta 100 Ellipta 100 Ellipta Family mcg-62.5 mcg-62.5 100 Practic mcg-25 mcg mcg-25 mcg mcg-62.5 e powder for powder for mcg-25 mcg inhalation inhalation powder for INHALE ONE INHALE ONE inhalation PUFF BY PUFF BY INHALE ONE MOUTH EVERY MOUTH EVERY PUFF BY DAY DAY MOUTH EVERY DAY triamcinolo triamcinolo No triamcinol [facility] ne ne one Family acetonide acetonide acetonide Practic 0.1 % 0.1 % 0.1 % e topical topical topical cream APPLY cream APPLY cream A THIN A THIN APPLY A LAYER TO LAYER TO THIN LAYER THE THE TO THE AFFECTED AFFECTED AFFECTED AREA ON THE AREA ON THE AREA ON LEGS TWICE LEGS TWICE THE LEGS DAILY FOR 2 DAILY FOR 2 TWICE WEEKS , WEEKS , DAILY FOR THEN A 1 THEN A 1 2 WEEKS , WEEK BREAK WEEK BREAK THEN A 1 , THEN , THEN WEEK BREAK REPEAT REPEAT , THEN CYCLES CYCLES REPEAT NEEDED FOR NEEDED FOR CYCLES FLARES. FLARES. NEEDED FOR FLARES. Trulicity Trulicity Trulicity [facility] 1.5 mg/0.5 1.5 mg/0.5 1.5 mg/0.5 Family mL mL mL Practic subcutaneou subcutaneou subcutaneo e s pen s pen us pen injector injector injector INJECT 1.5 INJECT 1.5 INJECT 1.5 MG UNDER MG UNDER MG UNDER THE SKIN THE SKIN THE SKIN ONCE ONCE ONCE WEEKLY. WEEKLY. WEEKLY. Vitamin B12 Vitamin B12 Vitamin [facility] B12 Family Practic e Accu-Chek Accu-Chek No 6strip( [facility]D [facility] Guide test Guide test s) Guide test Family strips Take strips Take strips Practic 6 strips 6 strips Take 6 e every day every day strips by miscell. by miscell. every day route. route. by miscell. route. acetaminoph [facility] en 300 en 300 hen 300 Family mg-codeine mg-codeine mg-codeine Practic 30 mg 30 mg 30 mg e tablet TAKE tablet TAKE tablet ONE (1) ONE (1) TAKE ONE TABLET(S) TABLET(S) (1) BY MOUTH BY MOUTH TABLET(S) EVERY EIGHT EVERY EIGHT BY MOUTH HOURS HOURS EVERY NEEDED FOR NEEDED FOR EIGHT PAIN. PAIN. HOURS NEEDED FOR PAIN. Advair Advair No 1puff(s BID Advair [place] e Diskus 250 Diskus 250 ) Diskus 250 Family mcg-50 mcg-50 mcg-50 Practic mcg/dose mcg/dose mcg/dose e powder for powder for powder for inhalation inhalation inhalation Inhale 1 Inhale 1 Inhale 1 puff twice puff twice puff twice a day by a day by a day by inhalation inhalation inhalation route. route. route. albuterol albuterol No albuterol [facility] sulfate 2.5 sulfate 2.5 sulfate Family mg/3 mL mg/3 mL 2.5 mg/3 Pract ic (0.083 %) (0.083 %) mL (0.083 e solution solution %) for for solution nebulizatio nebulizatio for n INHALE 1 n INHALE 1 nebulizati VIAL VIA VIAL VIA on INHALE NEBULIZER NEBULIZER 1 VIAL VIA FOUR TIMES FOUR TIMES NEBULIZER DAILY DAILY FOUR TIMES NEEDED NEEDED DAILY NEEDED albuterol albuterol No albuterol [facility] sulfate HFA sulfate HFA sulfate Family 90 90 HFA 90 Practic mcg/actuati mcg/actuati mcg/actuat e on aerosol on aerosol ion inhaler inhaler aerosol INHALE TWO INHALE TWO inhaler (2) PUFF(S) (2) PUFF(S) INHALE TWO BY MOUTH BY MOUTH (2) EVERY FOUR EVERY FOUR PUFF(S) BY HOURS HOURS MOUTH NEEDED. NEEDED. EVERY FOUR HOURS NEEDED. amlodipine amlodipine No amlodipine [facility] 5 mg tablet 5 mg tablet 5 mg F amily TAKE ONE TAKE ONE tablet Pract ic (1) (1) TAKE ONE e TABLET(S) TABLET(S) (1) BY MOUTH BY MOUTH TABLET(S) ONCE A DAY. ONCE A DAY. BY MOUTH ONCE A DAY. amoxicillin amoxicillin No amoxicilli [facility] [phone] Family mg-potassiu mg-potassiu mg-potassi Practic m m um e clavulanate clavulanate clavulanat 125 mg 125 mg e 125 mg tablet TAKE tablet TAKE tablet ONE (1) ONE (1) TAKE ONE TABLET(S) TABLET(S) (1) BY MOUTH BY MOUTH TABLET(S) EVERY 12 EVERY 12 BY MOUTH HOURS FOR 7 HOURS FOR 7 EVERY 12 DAYS. DAYS. HOURS FOR 7 DAYS. baclofen 10 baclofen 10 No baclofen [facility] mg tablet mg tablet 10 mg Fami ly TAKE ONE TAKE ONE tablet Pract ic (1) (1) TAKE ONE e TABLET(S) TABLET(S) (1) BY MOUTH BY MOUTH TABLET(S) THREE TIMES THREE TIMES BY MOUTH A DAY A DAY THREE NEEDED. NEEDED. TIMES A DAY NEEDED. Baqsimi 3 Baqsimi 3 No Baqsimi 3 [place] mg/actuatio mg/actuatio mg/actuati Family n nasal n nasal on nasal Pract ic spray USE spray USE spray USE e DIRECTED DIRECTED ONCE ONCE DIRECTED NASALLY FOR NASALLY FOR ONCE HYPOGLYCEMI HYPOGLYCEMI NASALLY A EPISODE A EPISODE FOR HYPOGLYCEM IA EPISODE bupropion bupropion No bupropion [facility] HCl XL 150 HCl XL 150 HCl XL 150 Family mg 24 hr mg 24 hr mg 24 hr Pra ctic tablet, tablet, tablet, e extended extended extended release release release TAKE ONE TAKE ONE TAKE ONE (1) (1) (1) TABLET(S) TABLET(S) TABLET(S) BY MOUTH BY MOUTH BY MOUTH EVERY EVERY EVERY MORNING. MORNING. MORNING. carvedilol carvedilol No carvedilol [facility] 25 mg 25 mg 25 mg Family tablet TAKE tablet TAKE tablet Practic ONE (1) ONE (1) TAKE ONE e TABLET(S) TABLET(S) (1) BY MOUTH BY MOUTH TABLET(S) TWICE A DAY TWICE A DAY BY MOUTH WITH FOOD. WITH FOOD. TWICE A DAY WITH FOOD. celecoxib celecoxib No celecoxib [facility] 100 mg 100 mg 100 mg Family capsule capsule capsule Practi c TAKE ONE TAKE ONE TAKE ONE e (1) (1) (1) CAPSULE(S) CAPSULE(S) CAPSULE(S) BY MOUTH BY MOUTH BY MOUTH TWICE A DAY TWICE A DAY TWICE A NEEDED NEEDED DAY WITH FOOD. WITH FOOD. NEEDED WITH FOOD. cetirizine cetirizine No cetirizine [facility] 10 mg 10 mg 10 mg Family tablet TAKE tablet TAKE tablet Practic ONE (1) ONE (1) TAKE ONE e TABLET(S) TABLET(S) (1) BY MOUTH BY MOUTH TABLET(S) ONCE A DAY. ONCE A DAY. BY MOUTH ONCE A DAY. clindamycin clindamycin No clindamyci [facility] HCl 150 mg HCl 150 mg n HCl 150 Family capsule capsule mg capsule Pra ctic TAKE 2 TAKE 2 TAKE 2 e CAPSULES BY CAPSULES BY CAPSULES MOUTH EVERY MOUTH EVERY BY MOUTH 6 HOURS FOR 6 HOURS FOR EVERY 6 10 DAYS 10 DAYS HOURS FOR 10 DAYS cyanocobala cyanocobala No cyanocobal [place] min (vit min (vit merlos (vit Fa thomas B-12) 1,000 B-12) 1,000 B-12) Practic mcg/mL mcg/mL 1,000 e injection injection mcg/mL solution solution injection INJECT ONE INJECT ONE solution (1) ML(S) (1) ML(S) INJECT ONE INTRAMUSVCU INTRAMUSVCU (1) ML(S) LARLY ONCE LARLY ONCE INTRAMUSVC A DAY FOR 7 A DAY FOR 7 ULARLY DAYS, THEN DAYS, THEN ONCE A DAY ONCE A WEEK ONCE A WEEK FOR 7 FOR 1 FOR 1 DAYS, THEN MONTH. MONTH. ONCE A WEEK FOR 1 MONTH. cyclobenzap cyclobenzap No cyclobenza [facility] rine 10 mg rine 10 mg chelsey 10 Family tablet TAKE tablet TAKE mg tablet Practic 1 TABLET BY 1 TABLET BY TAKE 1 e MOUTH THREE MOUTH THREE TABLET BY TIMES DAILY TIMES DAILY MOUTH NEEDED NEEDED THREE TIMES DAILY NEEDED diclofenac diclofenac No diclofenac [facility] potassium potassium potassium Family 50 mg 50 mg 50 mg Practic tablet TAKE tablet TAKE tablet e ONE (1) ONE (1) TAKE ONE TABLET(S) TABLET(S) (1) BY MOUTH BY MOUTH TABLET(S) TWICE A TWICE A BY MOUTH DAY. DAY. TWICE A DAY. diclofenac diclofenac No diclofenac [facility] sodium 50 sodium 50 sodium 50 Family mg mg mg Practic tablet,jed tablet,jed tablet,del e yed release yed release ayed TAKE ONE TAKE ONE release (1) (1) TAKE ONE TABLET(S) TABLET(S) (1) BY MOUTH BY MOUTH TABLET(S) TWICE A DAY TWICE A DAY BY MOUTH NEEDED. NEEDED. TWICE A DAY NEEDED. diclofenac diclofenac No diclofenac [facility] sodium 75 sodium 75 sodium 75 Family mg mg mg Practic tablet,jed tablet,jed tablet,del e yed release yed release ayed release Enbrel 50 Enbrel 50 No 1mL Q1W Enbrel 50 [place] mg/mL (1 mg/mL (1 mg/mL (1 Fam gael mL) mL) mL) Practic subcutaneou subcutaneou subcutaneo e s syringe s syringe us syringe Inject 1 mL Inject 1 mL Inject 1 every week every week mL every by by week by subcutaneou subcutaneou subcutaneo s route. s route. us route. Enbrel Mini Enbrel Mini No Enbrel [place] 50 mg/mL (1 50 mg/mL (1 Mini 50 Family mL) mL) mg/mL (1 Practic subcutaneou subcutaneou mL) e s cartridge s cartridge subcutaneo us cartridge Flowflex Flowflex No Flowflex Nivia randy COVID-19 COVID-19 COVID-19 Fam gael Antigen Antigen Antigen Practi c Home Test Home Test Home Test e kit kit kit folic acid folic acid No folic acid [place] 1 mg tablet 1 mg tablet 1 mg F amily TAKE ONE TAKE ONE tablet Pract ic (1) (1) TAKE ONE e TABLET(S) TABLET(S) (1) BY MOUTH BY MOUTH TABLET(S) ONCE A DAY. ONCE A DAY. BY MOUTH ONCE A DAY. Fosamax 70 Fosamax 70 No 1 Q1W Fosamax 70 [facility] mg tablet mg tablet mg tablet Family Take 1 Take 1 Take 1 Practic tablet tablet tablet e every week every week every week by oral by oral by oral route. route. route. FreeStyle FreeStyle No FreeStyle [facility] Lindy 14 Lindy 14 Lindy 14 Fam gael Day Sensor Day Sensor Day Sensor Practic e FreeStyle FreeStyle No FreeStyle [facility] Lindy 2 Lindy 2 Lindy 2 Family [place] USE [place] USE [place] USE Practic DIRECTED DIRECTED e TO MONITOR TO MONITOR DIRECTED BLOOD SUGAR BLOOD SUGAR TO MONITOR BLOOD SUGAR FreeStyle FreeStyle No FreeStyle [facility] [place] 2 [place] 2 Lind[place] 2 Family Sensor kit Sensor kit Sensor kit Practic USE USE USE e DIRECTED DIRECTED DIRECTED AND CHANGE AND CHANGE AND CHANGE SENSORS SENSORS SENSORS EVERY 14 EVERY 14 EVERY 14 DAYS DAYS DAYS gabapentin gabapentin No gabapentin [facility] 800 mg 800 mg 800 mg Family tablet TAKE tablet TAKE tablet Practic ONE (1) ONE (1) TAKE ONE e TABLET(S) TABLET(S) (1) BY MOUTH BY MOUTH TABLET(S) THREE TIMES THREE TIMES BY MOUTH A DAY. A DAY. THREE TIMES A DAY. Glucagon Glucagon No Glucagon [facility] Family Kit 1 mg Kit 1 mg Kit 1 mg Pra ctic injection injection injection e kit Take by kit Take by kit Take injection injection by route. route. injection route. Gvoke Gvoke No Gvoke [place] HypoPen HypoPen HypoPen Family 2-Pack 1 2-Pack 1 2-Pack 1 Pra ctic mg/0.2 mL mg/0.2 mL mg/0.2 mL e subcutaneou subcutaneou subcutaneo s s us auto-inject auto-inject auto-injec or INJECT or INJECT tor INJECT 0.2 0.2 0.2 MILLILITER MILLILITER MILLILITER (1 MG) (1 MG) (1 MG) UNDER THE UNDER THE UNDER THE SKIN IN THE SKIN IN THE SKIN IN ABDOMEN, ABDOMEN, THE THIGH, OR THIGH, OR ABDOMEN, UPPER ARM. UPPER ARM. THIGH, OR MAY REPEAT MAY REPEAT UPPER ARM. IN 15 IN 15 MAY REPEAT MINUTES IF MINUTES IF IN 15 INADEQUATE INADEQUATE MINUTES IF RESPONSE. RESPONSE. INADEQUATE RESPONSE. hydralazine hydralazine No hydralazin [facility] 25 mg 25 mg e 25 mg Family tablet TAKE tablet TAKE tablet Practic ONE (1) ONE (1) TAKE ONE e TABLET(S) TABLET(S) (1) BY MOUTH BY MOUTH TABLET(S) TWICE A DAY TWICE A DAY BY MOUTH WITH FOOD. WITH FOOD. TWICE A DAY WITH FOOD. hydralazine hydralazine No 1 BID hydralazin [facility] 50 mg 50 mg e 50 mg Family tablet Take tablet Take tablet Practic 1 tablet 1 tablet Take 1 e twice a day twice a day tablet by oral by oral twice a route. route. day by oral route. Hypodermic Hypodermic No Hypodermic [facility] 23 Family gauge x 1" gauge x 1" gauge x 1" Practic e ibuprofen ibuprofen No 1 Q7H ibuprofen [facility] 800 mg 800 mg 800 mg Family tablet Take tablet Take tablet Practic 1 tablet 1 tablet Take 1 e every 6-8 every 6-8 tablet hours by hours by every 6-8 oral route oral route hours by as as oral route directed. directed. as directed. irbesartan irbesartan No irbesartan [facility] 150 mg 150 mg 150 mg Family tablet TAKE tablet TAKE tablet Practic ONE (1) ONE (1) TAKE ONE e TABLET(S) TABLET(S) (1) BY MOUTH BY MOUTH TABLET(S) TWICE A TWICE A BY MOUTH DAY. DAY. TWICE A DAY. Lyumjev Lyumjev No Lyumjev [place] e U-100 U-100 U-100 Family Insulin 100 Insulin 100 Insulin Practic unit/mL unit/mL 100 e subcutaneou subcutaneou unit/mL s solution s solution subcutaneo Use with Use with us insulin insulin solution pump; TDD pump; TDD Use with 165 165 insulin pump; TDD 165 melatonin 3 melatonin 3 No melatonin [place] mg tablet mg tablet 3 mg Famil y Take by Take by tablet Practic oral route. oral route. Take by e oral route. [facility]ocarbam [facility] mg ol 500 mg mol 500 mg Family tablet tablet tablet Practic e methotrexat [facility]ot[facility] e 2.5 mg e 2.5 mg te 2.5 mg Fa thomas tablet Take tablet Take tablet Practic by oral by oral Take by e route. route. oral route. MiniMed MiniMed No MiniMed [place] e [id number] 770G Family Insulin Insulin Insulin Practi c Pump Pump Pump e montelukast montelukast No montelukas [facility] 10 mg 10 mg t 10 mg Family tablet TAKE tablet TAKE tablet Practic ONE (1) ONE (1) TAKE ONE e TABLET(S) TABLET(S) (1) BY MOUTH BY MOUTH TABLET(S) DAILY. DAILY. BY MOUTH DAILY. mupirocin 2 mupirocin 2 No mupirocin [place] % topical % topical 2 % Famil y ointment ointment topical Prac tic APPLY A APPLY A ointment e THIN LAYER THIN LAYER APPLY A TO THE EARS TO THE EARS THIN LAYER , LEGS , , LEGS , TO THE SCALP, NOSE SCALP, NOSE EARS , AND AND LEGS , SHOULDER SHOULDER SCALP, TWICE DAILY TWICE DAILY NOSE AND NEEDED. NEEDED. SHOULDER TWICE DAILY NEEDED. ondansetron ondansetron No ondansetro [facility] HCl 4 mg HCl 4 mg n HCl 4 mg F amily tablet TAKE tablet TAKE tablet Practic ONE (1) ONE (1) TAKE ONE e TABLET(S) TABLET(S) (1) BY MOUTH BY MOUTH TABLET(S) EVERY EIGHT EVERY EIGHT BY MOUTH HOURS HOURS EVERY NEEDED. NEEDED. EIGHT HOURS NEEDED. oseltamivir oseltamivir oseltamivi [facility] 75 mg 75 mg r 75 mg Family capsule capsule capsule Practi c TAKE ONE TAKE ONE TAKE ONE e (1) (1) (1) CAPSULE(S) CAPSULE(S) CAPSULE(S) BY MOUTH BY MOUTH BY MOUTH TWICE A DAY TWICE A DAY TWICE A FOR 5 DAYS. FOR 5 DAYS. DAY FOR 5 DAYS. Ozempic 1 Ozempic 1 No Ozempic 1 [facility] mg/dose (4 mg/dose (4 mg/dose (4 Family mg/3 mL) mg/3 mL) mg/3 mL) Pra ctic subcutaneou subcutaneou subcutaneo e s pen s pen us pen injector injector injector INJECT ONE INJECT ONE INJECT ONE (1) MG (1) MG (1) MG UNDER THE UNDER THE UNDER THE SKIN ONCE SKIN ONCE SKIN ONCE WEEKLY. WEEKLY. WEEKLY. pantoprazol pantoprazol No pantoprazo [place] e 40 mg e 40 mg le 40 mg Famil y tablet,jed tablet,jed tablet,del Practic yed release yed release ayed e TAKE ONE TAKE ONE release (1) (1) TAKE ONE TABLET(S) TABLET(S) (1) BY MOUTH BY MOUTH TABLET(S) TWICE A TWICE A BY MOUTH DAY. DAY. TWICE A DAY. prednisolon prednisolon No prednisolo [facility] e acetate 1 e acetate 1 ne acetate Family % eye % eye 1 % eye Practic drops,suspe drops,suspe drops,susp e nsion SHAKE nsion SHAKE ension WELL AND WELL AND SHAKE WELL PLACE [address] DROP IN DROP IN 1 DROP IN EACH EYE EACH EYE EACH EYE TWICE DAILY TWICE DAILY TWICE FOR 5 DAYS. FOR 5 DAYS. DAILY FOR 5 DAYS. risedronate risedronate [facility] 35 mg 35 mg e 35 mg Family tablet TAKE tablet TAKE tablet Practic ONE (1) ONE (1) TAKE ONE e TABLET(S) TABLET(S) (1) BY MOUTH BY MOUTH TABLET(S) EVERY WEEK. EVERY WEEK. BY MOUTH EVERY WEEK. risedronate [facility] 35 mg e 35 mg Family tablet,jed tablet,jed tablet,del Practic yed release yed release ayed e release rosuvastati rosuvastati No rosuvastat [facility] n 20 mg n 20 mg in 20 mg Famil y tablet TAKE tablet TAKE tablet Practic ONE (1) ONE (1) TAKE ONE e TABLET(S) TABLET(S) (1) BY MOUTH BY MOUTH TABLET(S) ONCE A DAY. ONCE A DAY. BY MOUTH ONCE A DAY. Synthroid Synthroid No Synthroid [facility] 200 mcg 200 mcg 200 mcg Family tablet TAKE tablet TAKE tablet Practic ONE (1) ONE (1) TAKE ONE e TABLET(S) TABLET(S) (1) BY MOUTH BY MOUTH TABLET(S) EVERY EVERY BY MOUTH MORNING ON MORNING ON EVERY AN EMPTY AN EMPTY MORNING ON STOMACH. STOMACH. AN EMPTY STOMACH. Synthroid Synthroid No Synthroid [facility] 50 mcg 50 mcg 50 mcg Family tablet TAKE tablet TAKE tablet Practic ONE (1) ONE (1) TAKE ONE e TABLET(S) TABLET(S) (1) BY MOUTH IN BY MOUTH IN TABLET(S) THE MORNING THE MORNING BY MOUTH ON AN EMPTY ON AN EMPTY IN THE STOMACH. STOMACH. MORNING ON AN EMPTY STOMACH. tramadol 50 tramadol 50 No tramadol [place] mg tablet mg tablet 50 mg Fami ly TAKE 1 TAKE 1 tablet Practic TABLET BY TABLET BY TAKE 1 e MOUTH EVERY MOUTH EVERY TABLET BY 8 HOURS 8 HOURS MOUTH NEEDED NEEDED EVERY 8 HOURS NEEDED Trelegy Trelegy No Trelegy [facility] Ellipta 100 Ellipta 100 Ellipta Family mcg-62.5 mcg-62.5 100 Practic mcg-25 mcg mcg-25 mcg mcg-62.5 e powder for powder for mcg-25 mcg inhalation inhalation powder for INHALE ONE INHALE ONE inhalation PUFF BY PUFF BY INHALE ONE MOUTH EVERY MOUTH EVERY PUFF BY DAY DAY MOUTH EVERY DAY triamcinolo triamcinolo No triamcinol [facility] ne ne one Family acetonide acetonide acetonide Practic 0.1 % 0.1 % 0.1 % e topical topical topical cream APPLY cream APPLY cream A THIN A THIN APPLY A LAYER TO LAYER TO THIN LAYER THE THE TO THE AFFECTED AFFECTED AFFECTED AREA ON THE AREA ON THE AREA ON LEGS TWICE LEGS TWICE THE LEGS DAILY FOR 2 DAILY FOR 2 TWICE WEEKS , WEEKS , DAILY FOR THEN A 1 THEN A 1 2 WEEKS , WEEK BREAK WEEK BREAK THEN A 1 , THEN , THEN WEEK BREAK REPEAT REPEAT , THEN CYCLES CYCLES REPEAT NEEDED FOR NEEDED FOR CYCLES FLARES. FLARES. NEEDED FOR FLARES. Trulicity Trulicity No Trulicity [facility] 1.5 mg/0.5 1.5 mg/0.5 1.5 mg/0.5 Family mL mL mL Practic subcutaneou subcutaneou subcutaneo e s pen s pen us pen injector injector injector INJECT 1.5 INJECT 1.5 INJECT 1.5 MG UNDER MG UNDER MG UNDER THE SKIN THE SKIN THE SKIN ONCE ONCE ONCE WEEKLY. WEEKLY. WEEKLY. Vitamin B12 Vitamin B12 No Vitamin [facility] B12 Family Practic e Accu-Chek Accu-Chek No 6strip( Q1D Accu-Chek [facility] Guide test Guide test s) Guide test Family strips Take strips Take strips Practic 6 strips 6 strips Take 6 e every day every day strips by miscell. by miscell. every day route. route. by miscell. route. acetaminoph acetaminoph No acetaminop [facility] en 300 en 300 hen 300 Family mg-codeine mg-codeine mg-codeine Practic 30 mg 30 mg 30 mg e tablet TAKE tablet TAKE tablet ONE (1) ONE (1) TAKE ONE TABLET(S) TABLET(S) (1) BY MOUTH BY MOUTH TABLET(S) EVERY SIX EVERY SIX BY MOUTH HOURS HOURS EVERY SIX NEEDED FOR NEEDED FOR HOURS ACUTE PAIN. ACUTE PAIN. NEEDED FOR ACUTE PAIN. Advair Advair No 1puff(s BID Advair [facility] Diskus 250 Diskus 250 ) Diskus 250 Family mcg-50 mcg-50 mcg-50 Practic mcg/dose mcg/dose mcg/dose e powder for powder for powder for inhalation inhalation inhalation Inhale 1 Inhale 1 Inhale 1 puff twice puff twice puff twice a day by a day by a day by inhalation inhalation inhalation route. route. route. albuterol albuterol No albuterol [facility] sulfate 2.5 sulfate 2.5 sulfate Family mg/3 mL mg/3 mL 2.5 mg/3 Pract ic (0.083 %) (0.083 %) mL (0.083 e solution solution %) for for solution nebulizatio nebulizatio for n INHALE 1 n INHALE 1 nebulizati VIAL VIA VIAL VIA on INHALE NEBULIZER NEBULIZER 1 VIAL VIA FOUR TIMES FOUR TIMES NEBULIZER DAILY DAILY FOUR TIMES NEEDED NEEDED DAILY NEEDED albuterol albuterol No albuterol [facility] sulfate HFA sulfate HFA sulfate Family 90 90 HFA 90 Practic mcg/actuati mcg/actuati mcg/actuat e on aerosol on aerosol ion inhaler inhaler aerosol INHALE TWO INHALE TWO inhaler (2) PUFF(S) (2) PUFF(S) INHALE TWO BY MOUTH BY MOUTH (2) EVERY FOUR EVERY FOUR PUFF(S) BY HOURS HOURS MOUTH NEEDED. NEEDED. EVERY FOUR HOURS NEEDED. amlodipine amlodipine No amlodipine [facility] 5 mg tablet 5 mg tablet 5 mg F amily TAKE ONE TAKE ONE tablet Pract ic (1) (1) TAKE ONE e TABLET(S) TABLET(S) (1) BY MOUTH BY MOUTH TABLET(S) ONCE A DAY. ONCE A DAY. BY MOUTH ONCE A DAY. baclofen 10 baclofen 10 No baclofen [place] mg tablet mg tablet 10 mg Fami ly TAKE ONE TAKE ONE tablet Pract ic (1) (1) TAKE ONE e TABLET(S) TABLET(S) (1) BY MOUTH BY MOUTH TABLET(S) THREE TIMES THREE TIMES BY MOUTH A DAY A DAY THREE NEEDED. NEEDED. TIMES A DAY NEEDED. Baqsimi 3 Baqsimi 3 No Baqsimi 3 [place] mg/actuatio mg/actuatio mg/actuati Family n nasal n nasal on nasal Pract ic spray USE spray USE spray USE e DIRECTED DIRECTED ONCE ONCE DIRECTED NASALLY FOR NASALLY FOR ONCE HYPOGLYCEMI HYPOGLYCEMI NASALLY A EPISODE A EPISODE FOR HYPOGLYCEM IA EPISODE bupropion bupropion No bupropion [facility] HCl XL 150 HCl XL 150 HCl XL 150 Family mg 24 hr mg 24 hr mg 24 hr Pra ctic tablet, tablet, tablet, e extended extended extended release release release TAKE ONE TAKE ONE TAKE ONE (1) (1) (1) TABLET(S) TABLET(S) TABLET(S) BY MOUTH BY MOUTH BY MOUTH EVERY EVERY EVERY MORNING. MORNING. MORNING. carvedilol carvedilol No carvedilol [facility] 25 mg 25 mg 25 mg Family tablet TAKE tablet TAKE tablet Practic ONE (1) ONE (1) TAKE ONE e TABLET(S) TABLET(S) (1) BY MOUTH BY MOUTH TABLET(S) TWICE A DAY TWICE A DAY BY MOUTH WITH FOOD. WITH FOOD. TWICE A DAY WITH FOOD. celecoxib celecoxib No celecoxib [facility] 100 mg 100 mg 100 mg Family capsule capsule capsule Practi c TAKE ONE TAKE ONE TAKE ONE e (1) (1) (1) CAPSULE(S) CAPSULE(S) CAPSULE(S) BY MOUTH BY MOUTH BY MOUTH TWICE A DAY TWICE A DAY TWICE A NEEDED NEEDED DAY WITH FOOD. WITH FOOD. NEEDED WITH FOOD. cetirizine cetirizine No cetirizine [facility] 10 mg 10 mg 10 mg Family tablet TAKE tablet TAKE tablet Practic ONE (1) ONE (1) TAKE ONE e TABLET(S) TABLET(S) (1) BY MOUTH BY MOUTH TABLET(S) ONCE A DAY. ONCE A DAY. BY MOUTH ONCE A DAY. [facility] HCl 150 mg n HCl 150 Family capsule capsule mg capsule Pra ctic TAKE 2 TAKE 2 TAKE 2 e CAPSULES BY CAPSULES BY CAPSULES MOUTH EVERY MOUTH EVERY BY MOUTH 6 HOURS FOR 6 HOURS FOR EVERY 6 10 DAYS 10 DAYS HOURS FOR 10 DAYS clindamycin [facility] 300 mg HCl 300 mg n HCl 300 Family capsule capsule mg capsule Pra ctic TAKE ONE TAKE ONE TAKE ONE e (1) (1) (1) CAPSULE(S) CAPSULE(S) CAPSULE(S) BY MOUTH BY MOUTH BY MOUTH EVERY EIGHT EVERY EIGHT EVERY HOURS FOR HOURS FOR EIGHT 10 DAYS. 10 DAYS. HOURS FOR 10 DAYS. cyanocobala cyanocobala No cyanocobal [facility] min (vit min (vit merlos (vit Fa thomas B-12) 1,000 B-12) 1,000 B-12) Practic mcg/mL mcg/mL 1,000 e injection injection mcg/mL solution solution injection INJECT ONE INJECT ONE solution (1) ML(S) (1) ML(S) INJECT ONE INTRAMUSVCU INTRAMUSVCU (1) ML(S) LARLY ONCE LARLY ONCE INTRAMUSVC A DAY FOR 7 A DAY FOR 7 ULARLY DAYS, THEN DAYS, THEN ONCE A DAY ONCE A WEEK ONCE A WEEK FOR 7 FOR 1 FOR 1 DAYS, THEN MONTH. MONTH. ONCE A WEEK FOR 1 MONTH. cyclobenzap cyclobenzap No cyclobenza [facility] rine 10 mg rine 10 mg chelsey 10 Family tablet TAKE tablet TAKE mg tablet Practic 1 TABLET BY 1 TABLET BY TAKE 1 e MOUTH THREE MOUTH THREE TABLET BY TIMES DAILY TIMES DAILY MOUTH NEEDED NEEDED THREE TIMES DAILY NEEDED diclofenac diclofenac No [facility] potassium potassium potassium Family 50 mg 50 mg 50 mg Practic tablet TAKE tablet TAKE tablet e ONE (1) ONE (1) TAKE ONE TABLET(S) TABLET(S) (1) BY MOUTH BY MOUTH TABLET(S) TWICE A TWICE A BY MOUTH DAY. DAY. TWICE A DAY. diclofenac diclofenac diclofenac [facility] sodium 50 sodium 50 sodium 50 Family mg mg mg Practic tablet,jed tablet,jed tablet,del e yed release yed release ayed TAKE ONE TAKE ONE release (1) (1) TAKE ONE TABLET(S) TABLET(S) (1) BY MOUTH BY MOUTH TABLET(S) TWICE A DAY TWICE A DAY BY MOUTH NEEDED. NEEDED. TWICE A DAY NEEDED. diclofenac diclofenac No diclofenac [place] sodium 75 sodium 75 sodium 75 Family mg mg mg Practic tablet,jed tablet,jed tablet,del e yed release yed release ayed release Enbrel 50 Enbrel 50 No 1mL Q1W Enbrel 50 [place] mg/mL (1 mg/mL (1 mg/mL (1 Fam gael mL) mL) mL) Practic subcutaneou subcutaneou subcutaneo e s syringe s syringe us syringe Inject 1 mL Inject 1 mL Inject 1 every week every week mL every by by week by subcutaneou subcutaneou subcutaneo s route. s route. us route. Enbrel Mini Enbrel Mini No Enbrel [place] 50 mg/mL (1 50 mg/mL (1 Mini 50 Family mL) mL) mg/mL (1 Practic subcutaneou subcutaneou mL) e s cartridge s cartridge subcutaneo us cartridge folic acid folic acid No folic acid [place] 1 mg tablet 1 mg tablet 1 mg F amily TAKE ONE TAKE ONE tablet Pract ic (1) (1) TAKE ONE e TABLET(S) TABLET(S) (1) BY MOUTH BY MOUTH TABLET(S) ONCE A DAY. ONCE A DAY. BY MOUTH ONCE A DAY. Fosamax 70 Fosamax 70 No 1 Q1W Fosamax 70 [facility] mg tablet mg tablet mg tablet Family Take 1 Take 1 Take 1 Practic tablet tablet tablet e every week every week every week by oral by oral by oral route. route. route. FreeStyle FreeStyle No FreeStyle [place] Lindy 14 Lindy 14 Lindy 14 Fam gael Day Sensor Day Sensor Day Sensor Practic e FreeStyle FreeStyle No FreeStyle [facility] Lindy 2 Lindy 2 Lindy 2 Family [place] USE [place] USE [place] USE Practic DIRECTED DIRECTED e TO MONITOR TO MONITOR DIRECTED BLOOD SUGAR BLOOD SUGAR TO MONITOR BLOOD SUGAR FreeStyle FreeStyle No FreeStyle [facility] [place] 2 Lindy 2 Lindy 2 Family Sensor kit Sensor kit Sensor kit Practic USE USE USE e DIRECTED DIRECTED DIRECTED AND CHANGE AND CHANGE AND CHANGE SENSORS SENSORS SENSORS EVERY 14 EVERY 14 EVERY 14 DAYS DAYS DAYS gabapentin gabapentin No gabapentin [facility] 800 mg 800 mg 800 mg Family tablet TAKE tablet TAKE tablet Practic ONE (1) ONE (1) TAKE ONE e TABLET BY TABLET BY (1) TABLET MOUTH 3 MOUTH 3 BY MOUTH 3 TIMES PER TIMES PER TIMES PER DAY. DAY. DAY. Glucagon Glucagon No Glucagon [facility] Family Kit 1 mg Kit 1 mg Kit 1 mg Pra ctic injection injection injection e kit Take by kit Take by kit Take injection injection by route. route. injection route. Gvoke Gvoke No Gvoke [place] HypoPen HypoPen HypoPen Family 2-Pack 1 2-Pack 1 2-Pack 1 Pra ctic mg/0.2 mL mg/0.2 mL mg/0.2 mL e subcutaneou subcutaneou subcutaneo s s us auto-inject auto-inject auto-injec or INJECT or INJECT tor INJECT 0.2 0.2 0.2 MILLILITER MILLILITER MILLILITER (1 MG) BY (1 MG) BY (1 MG) BY SUBCUTANEOU SUBCUTANEOU SUBCUTANEO S ROUTE S ROUTE US ROUTE ONCE IN THE ONCE IN THE ONCE IN ABDOMEN, ABDOMEN, THE THIGH, OR THIGH, OR ABDOMEN, UPPER ARM UPPER ARM THIGH, OR MAY REPEAT MAY REPEAT UPPER ARM IN 15 IN 15 MAY REPEAT MINUTES IF MINUTES IF IN 15 INADEQUATE INADEQUATE MINUTES IF RESPONSE RESPONSE INADEQUATE RESPONSE hydralazine hydralazine No hydralazin [facility] 25 mg 25 mg e 25 mg Family tablet TAKE tablet TAKE tablet Practic ONE (1) ONE (1) TAKE ONE e TABLET(S) TABLET(S) (1) BY MOUTH BY MOUTH TABLET(S) TWICE A DAY TWICE A DAY BY MOUTH WITH FOOD. WITH FOOD. TWICE A DAY WITH FOOD. hydralazine hydralazine No 1 BID hydralazin [facility] 50 mg 50 mg e 50 mg Family tablet Take tablet Take tablet Practic 1 tablet 1 tablet Take 1 e twice a day twice a day tablet by oral by oral twice a route. route. day by oral route. Hypodermic Hypodermic No Hypodermic [facility] 23 Family gauge x 1" gauge x 1" gauge x 1" Practic e ibuprofen ibuprofen No 1 Q7H ibuprofen [facility] 800 mg 800 mg 800 mg Family tablet Take tablet Take tablet Practic 1 tablet 1 tablet Take 1 e every 6-8 every 6-8 tablet hours by hours by every 6-8 oral route oral route hours by as as oral route directed. directed. as directed. iHealth iHealth No [facility] COVID-19 COVID-19 COVID-19 Fam gael Antigen Antigen Antigen Practi c Rapid Home Rapid Home Rapid Home e Test kit Test kit Test kit irbesartan irbesartan No irbesartan [facility] 150 mg 150 mg 150 mg Family tablet TAKE tablet TAKE tablet Practic ONE (1) ONE (1) TAKE ONE e TABLET(S) TABLET(S) (1) BY MOUTH BY MOUTH TABLET(S) TWICE A TWICE A BY MOUTH DAY. DAY. TWICE A DAY. Lyumjev Lyumpiliv No Lycarolin Faustin e U-100 U-100 U-100 Family Insulin 100 Insulin 100 Insulin Practic unit/mL unit/mL 100 e subcutaneou subcutaneou unit/mL s solution s solution subcutaneo Use with Use with us insulin insulin solution pump; TDD pump; TDD Use with 165 165 insulin pump; TDD 165 melatonin 3 melatonin 3 No melatonin [place] mg tablet mg tablet 3 mg Famil y Take by Take by tablet Practic oral route. oral route. Take by e oral route. methocarbam methocarbam No methocarba [facility] ol 500 mg ol 500 mg mol 500 mg Family tablet tablet tablet Practic e methotrexat methotrexat No methotrexa [facility] e 2.5 mg e 2.5 mg te 2.5 mg Fa thomas tablet Take tablet Take tablet Practic by oral by oral Take by e route. route. oral route. MiniMed MiniMed No MiniMed [facility] e [id number] Family Insulin Insulin Insulin Practi c Pump Pump Pump e montelukast montelukast No montelukas [facility] 10 mg 10 mg t 10 mg Family tablet TAKE tablet TAKE tablet Practic ONE (1) ONE (1) TAKE ONE e TABLET(S) TABLET(S) (1) BY MOUTH BY MOUTH TABLET(S) DAILY. DAILY. BY MOUTH DAILY. mupirocin 2 mupirocin 2 No mupirocin [place] % topical % topical 2 % Famil y ointment ointment topical Prac tic APPLY A APPLY A ointment e THIN LAYER THIN LAYER APPLY A TO THE EARS TO THE EARS THIN LAYER , LEGS , , LEGS , TO THE SCALP, NOSE SCALP, NOSE EARS , AND AND LEGS , SHOULDER SHOULDER SCALP, TWICE DAILY TWICE DAILY NOSE AND NEEDED. NEEDED. SHOULDER TWICE DAILY NEEDED. ondansetron ondansetron No ondansetro [facility] HCl 4 mg HCl 4 mg n HCl 4 mg F amily tablet TAKE tablet TAKE tablet Practic ONE (1) ONE (1) TAKE ONE e TABLET(S) TABLET(S) (1) BY MOUTH BY MOUTH TABLET(S) EVERY EIGHT EVERY EIGHT BY MOUTH HOURS HOURS EVERY NEEDED. NEEDED. EIGHT HOURS NEEDED. oseltamivir oseltamivir No oseltamivi [facility] 75 mg 75 mg r 75 mg Family capsule capsule capsule Practi c TAKE ONE TAKE ONE TAKE ONE e (1) (1) (1) CAPSULE(S) CAPSULE(S) CAPSULE(S) BY MOUTH BY MOUTH BY MOUTH TWICE A DAY TWICE A DAY TWICE A FOR 5 DAYS. FOR 5 DAYS. DAY FOR 5 DAYS. Ozempic 1 Ozempic 1 No 1mg Q1W Ozempic 1 [facility] mg/dose (4 mg/dose (4 mg/dose (4 Family mg/3 mL) mg/3 mL) mg/3 mL) Pra ctic subcutaneou subcutaneou subcutaneo e s pen s pen us pen injector injector injector Inject 1 mg Inject 1 mg Inject 1 every week every week mg every by by week by subcutaneou subcutaneou subcutaneo s route for s route for us route 30 days. 30 days. for 30 days. pantoprazol pantoprazol No pantoprazo [place] e 40 mg e 40 mg le 40 mg Famil y tablet,jed tablet,jed tablet,del Practic yed release yed release ayed e TAKE ONE TAKE ONE release (1) (1) TAKE ONE TABLET(S) TABLET(S) (1) BY MOUTH BY MOUTH TABLET(S) TWICE A TWICE A BY MOUTH DAY. DAY. TWICE A DAY. prednisolon prednisolon No prednisolo [place] e acetate 1 e acetate 1 ne acetate Family % eye % eye 1 % eye Practic drops,suspe drops,suspe drops,susp e nsion SHAKE nsion SHAKE ension WELL AND WELL AND SHAKE WELL PLACE [address] DROP IN DROP IN 1 DROP IN EACH EYE EACH EYE EACH EYE TWICE DAILY TWICE DAILY TWICE FOR 5 DAYS. FOR 5 DAYS. DAILY FOR 5 DAYS. [facility]ised[facility]ate [facility] mg e 35 mg Family tablet TAKE tablet TAKE tablet Practic ONE (1) ONE (1) TAKE ONE e TABLET(S) TABLET(S) (1) BY MOUTH BY MOUTH TABLET(S) EVERY WEEK. EVERY WEEK. BY MOUTH EVERY WEEK. risedronate [facility] mg 35 mg e 35 mg Family tablet,jed tablet,jed tablet,del Practic yed release yed release ayed e release rosuvastati rosuvastati No rosuvastat [facility] n 20 mg n 20 mg in 20 mg Famil y tablet TAKE tablet TAKE tablet Practic ONE (1) ONE (1) TAKE ONE e TABLET(S) TABLET(S) (1) BY MOUTH BY MOUTH TABLET(S) ONCE A DAY. ONCE A DAY. BY MOUTH ONCE A DAY. Synthroid Synthroid Synthroid [facility] 200 mcg 200 mcg 200 mcg Family tablet TAKE tablet TAKE tablet Practic ONE (1) ONE (1) TAKE ONE e TABLET(S) TABLET(S) (1) BY MOUTH BY MOUTH TABLET(S) EVERY EVERY BY MOUTH MORNING ON MORNING ON EVERY AN EMPTY AN EMPTY MORNING ON STOMACH. STOMACH. AN EMPTY STOMACH. Synthroid Synthroid Synthroid [facility] 50 mcg 50 mcg 50 mcg Family tablet TAKE tablet TAKE tablet Practic ONE (1) ONE (1) TAKE ONE e TABLET(S) TABLET(S) (1) BY MOUTH IN BY MOUTH IN TABLET(S) THE MORNING THE MORNING BY MOUTH ON AN EMPTY ON AN EMPTY IN THE STOMACH. STOMACH. MORNING ON AN EMPTY STOMACH. tramadol 50 tramadol 50 tramadol [facility] mg tablet mg tablet 50 mg Fami ly TAKE 1 TAKE 1 tablet Practic TABLET BY TABLET BY TAKE 1 e MOUTH EVERY MOUTH EVERY TABLET BY 8 HOURS 8 HOURS MOUTH NEEDED NEEDED EVERY 8 HOURS NEEDED Trelegy Trelegy No Trelegy [facility] Ellipta 100 Ellipta 100 Ellipta Family mcg-62.5 mcg-62.5 100 Practic mcg-25 mcg mcg-25 mcg mcg-62.5 e powder for powder for mcg-25 mcg inhalation inhalation powder for INHALE ONE INHALE ONE inhalation PUFF BY PUFF BY INHALE ONE MOUTH EVERY MOUTH EVERY PUFF BY DAY DAY MOUTH EVERY DAY triamcinolo triamcinolo No triamcinol [facility] ne ne one Family acetonide acetonide acetonide Practic 0.1 % 0.1 % 0.1 % e topical topical topical cream APPLY cream APPLY cream A THIN A THIN APPLY A LAYER TO LAYER TO THIN LAYER THE THE TO THE AFFECTED AFFECTED AFFECTED AREA ON THE AREA ON THE AREA ON LEGS TWICE LEGS TWICE THE LEGS DAILY FOR 2 DAILY FOR 2 TWICE WEEKS , WEEKS , DAILY FOR THEN A 1 THEN A 1 2 WEEKS , WEEK BREAK WEEK BREAK THEN A 1 , THEN , THEN WEEK BREAK REPEAT REPEAT , THEN CYCLES CYCLES REPEAT NEEDED FOR NEEDED FOR CYCLES FLARES. FLARES. NEEDED FOR FLARES. Trulicity Trulicity No Trulicity [place] 1.5 mg/0.5 1.5 mg/0.5 1.5 mg/0.5 Family mL mL mL Practic subcutaneou subcutaneou subcutaneo e s pen s pen us pen injector injector injector INJECT 1.5 INJECT 1.5 INJECT 1.5 MG UNDER MG UNDER MG UNDER THE SKIN THE SKIN THE SKIN ONCE ONCE ONCE WEEKLY. WEEKLY. WEEKLY. Vitamin B12 Vitamin B12 No Vitamin [place] B12 Family Practic e HumaLOG Pen HumaLOG Pen Yes U T SOLN SOLN Physici ans Enbrel 50 Enbrel 50 Yes [place] MG/ML MG/ML Physici Subcutaneou Subcutaneou a ns s Solution s Solution Prefilled Prefilled Syringe Syringe Folic Acid Folic Acid Yes UT CAPS CAPS Physici ans Synthroid Synthroid Yes [facility] 200 MCG 200 MCG Physici Oral Tablet Oral Tablet a ns Neurontin Neurontin Yes UT 800 MG Oral 800 MG Oral P hysici Tablet Tablet ans Methotrexat Methotrexat Yes U T e 2.5 MG e 2.5 MG Physici Oral Tablet Oral Tablet a ns Pantoprazol Pantoprazol Yes U T e Sodium 40 e Sodium 40 P hysici MG Oral MG Oral ans Tablet Tablet Delayed Delayed Release Release Metoclopram Metoclopram Yes U T gopal HCl - gopal HCl - Physi ci 10 MG Oral 10 MG Oral ans Tablet Tablet Disintegrat Disintegrat ing ing Zofran 2 Zofran 2 Yes UT MG/ML SOLN MG/ML SOLN Phy sici ans HydrALAZINE HydrALAZINE Yes U T HCl - 50 MG HCl - 50 MG P hysici Oral Tablet Oral Tablet a ns Carvedilol Carvedilol Yes UT 25 MG Oral 25 MG Oral Phy sici Tablet Tablet ans Cyclobenzap Cyclobenzap Yes U T rine HCl - rine HCl - Phy sici 10 MG Oral 10 MG Oral ans Tablet Tablet Alendronate Alendronate Yes U T Sodium 70 Sodium 70 Physi ci MG Oral MG Oral ans Tablet Tablet Super B Super B Yes UT Complex Complex Physici TABS TABS ans Vitamin Vitamin Yes UT B-12 1000 B-12 1000 Physi ci MCG Oral MCG Oral ans Tablet Tablet V-R Vitamin V-R Vitamin Yes U T C 1000 MG C 1000 MG Physi ci TABS TABS ans Melatonin 3 Melatonin 3 Yes U T MG Oral MG Oral Physici Capsule Capsule ans Immunizations Ordered Filled Immunization Date Status Comments [facility] e Immunization Name Name COVID-19 COVID-19 2020-05-13 Completed [facility] (SARS-COV-2) (SARS-COV-2) 00:00:00 Practice vaccine, vaccine, unspecified unspecified COVID-19 COVID-19 2020-05-13 Completed [facility] (SARS-COV-2) (SARS-COV-2) 00:00:00 Practice vaccine, vaccine, unspecified unspecified COVID-19 COVID-19 2020-05-13 Completed [facility] (SARS-COV-2) (SARS-COV-2) 00:00:00 Practice vaccine, vaccine, unspecified unspecified COVID-19 COVID-19 2020-05-13 Completed [facility] (SARS-COV-2) (SARS-COV-2) 00:00:00 Practice vaccine, vaccine, unspecified unspecified COVID-19 COVID-19 2020-04-15 Completed [facility] (SARS-COV-2) (SARS-COV-2) 00:00:00 Practice vaccine, vaccine, unspecified unspecified COVID-19 COVID-19 2020-04-15 Completed [facility] (SARS-COV-2) (SARS-COV-2) 00:00:00 Practice vaccine, vaccine, unspecified unspecified COVID-19 COVID-19 2020-04-15 Completed [facility] (SARS-COV-2) (SARS-COV-2) 00:00:00 Practice vaccine, vaccine, unspecified unspecified COVID-19, mRNA, COVID-19, mRNA, 2020-04-15 Completed [facility] age Family LNP-S, PF, 100 LNP-S, PF, 100 00:00:00 Practi ce mcg/0.5 mL dose mcg/0.5 mL dose (Moderna) (Moderna) Influenza Virus 2016-01-13 Completed [facility] [place] [facility] Multi-dose 6+ [facility] Influenza Virus 2016-01-13 Completed [facility] 00:[facility] [place] [facility] Multi-dose 6+ [facility] Influenza Virus 2016-01-13 Completed [facility] 00:00:00 [place] [facility] Multi-dose 6+ MO [facility] Influenza Virus 2016-01-13 Completed [facility] 00:00:00 [place] [facility] Multi-dose 6+ MO Branch Influenza Virus 2016-01-13 Completed [facility] 00:00:00 [place] [facility] Multi-dose 6+ [facility] Influenza Virus 2016-01-13 Completed [facility] 00:00:00 [place] [facility] Multi-dose 6+ [facility] Influenza Virus 2016-01-13 Completed [facility] 00:00:00 [place] [facility] Multi-dose 6+ [facility] Influenza Virus 2016-01-13 Completed [facility] 00:00:00 [place] [facility] Multi-dose 6+ [facility] Influenza Virus 2016-01-13 Completed [facility] 00:00:00 [place] [facility] Multi-dose 6+ [facility] Influenza Virus 2016-01-13 Completed [facility] 00:00:00 [place] [facility] Multi-dose 6+ [facility] Influenza Virus 2016-01-13 Completed [facility] 00:00:00 [place] [facility] Multi-dose 6+ [facility] Branch Influenza Virus 2016-01-13 Completed [facility] 00:00:00 [place] [facility] Multi-dose 6+ MO Branch Influenza Virus 2016-01-13 Completed [facility] 00:00:00 [place] [facility] Multi-dose 6+ MO Branch Influenza Virus 2016-01-13 Completed [facility] 00:00:00 [place] [facility] Multi-dose 6+ MO Branch Influenza Virus 2016-01-13 Completed [facility] 00:00:00 [place] [facility] Multi-dose 6+ MO Branch Influenza Virus 2016-01-13 Completed [facility] 00:00:00 [place] [facility] Multi-dose 6+ MO Branch Influenza Virus 2016-01-13 Completed [facility] 00:00:00 [place] [facility] Multi-dose 6+ MO Branch Influenza Virus 2016-01-13 Completed [facility] 00:00:00 [place] [facility] Multi-dose 6+ MO Branch Influenza Virus 2016-01-13 Completed [facility] 00:00:00 [place] [facility] Multi-dose 6+ MO Branch Influenza Virus 2016-01-13 Completed [facility] 00:00:00 [place] [facility] Multi-dose 6+ MO Branch Influenza Virus 2016-01-13 Completed [facility] 00:00:00 [place] [facility] Multi-dose 6+ MO Branch Influenza Virus 2016-01-13 Completed [facility] 00:00:00 [place] [facility] Multi-dose 6+ MO Branch Influenza Virus 2016-01-13 Completed [facility] 00:00:00 [place] [facility] Multi-dose 6+ MO Branch Influenza Virus 2016-01-13 Completed [facility] 00:00:00 [place] [facility] Multi-dose 6+ MO Branch Influenza Virus 2016-01-13 Completed [facility] 00:00:00 [place] [facility] Multi-dose 6+ MO Branch Influenza Virus 2016-01-13 Completed [facility] 00:00:00 [place] [facility] Multi-dose 6+ MO Branch Influenza Virus 2016-01-13 Completed [facility] 00:00:00 [place] [facility] Multi-dose 6+ MO Branch Influenza Virus 2016-01-13 Completed [facility] 00:00:00 [place] [facility] Multi-dose 6+ [place] [facility] Influenza Virus 2016-01-13 Completed [facility] [place] [facility] [place] [facility] Influenza Virus 2016-01-13 Completed [facility] [place] [facility] Influenza Virus 2016-01-13 Completed [facility] [place] [facility] Influenza Virus 2016-01-13 Completed [facility] 00:[facility]:00 [place] [facility] Influenza Virus 2016-01-13 Completed [facility] [place] [facility] Influenza Virus 2016-01-13 Completed [facility] 00:[facility] [place] [facility] Influenza Virus 2016-01-13 Completed [facility] 00:[facility] [place] [facility] Influenza Virus 2016-01-13 Completed [facility] 00:[facility] [place] [facility] Influenza Virus 2016-01-13 Completed [facility] 00:[facility] [place] [facility] Influenza Virus 2016-01-13 Completed [facility] 00:[facility] [place] [facility] Influenza Virus 2016-01-13 Completed [facility] 00:[facility]:00 [place] [facility] Influenza Virus 2016-01-13 Completed [facility] 00:[facility] [place] [facility] Influenza Virus 2016-01-13 Completed [facility] 00:[facility] [place] [facility] Influenza Virus 2016-01-13 Completed [facility] 00:[facility] [place] [facility] Influenza Virus 2016-01-13 Completed [facility] 00:[facility] [place] [facility] Influenza Virus 2016-01-13 Completed [facility] 00:[facility] [place] [facility] Influenza Virus 2016-01-13 Completed [facility] 00:[facility] [place] [facility] Influenza Virus 2016-01-13 Completed [facility] 00:[facility] [place] [facility] Influenza Virus 2016-01-13 Completed [facility] 00:[facility] [place] [facility] Influenza Virus 2016-01-13 Completed [facility] 00:[facility] [place] [facility] Influenza Virus 2016-01-13 Completed [facility] 00:[facility] [place] [facility] Influenza Virus 2016-01-13 Completed [facility] 00:[facility] [place] [facility] Influenza Virus 2016-01-13 Completed [facility] 00:[facility] [place] [facility] Influenza Virus 2016-01-13 Completed [facility] [place] [facility] Influenza Virus 2015-02-18 Completed [facility] [place] [facility] Influenza Virus 2015-02-18 Completed [facility] 00:[facility] [place] [facility] Influenza Virus 2015-02-18 Completed [facility] 00:[facility] [place] [facility] Influenza Virus 2015-02-18 Completed [facility] 00:[facility]:00 [place] [facility] Influenza Virus 2015-02-18 Completed [facility] 00:[facility] [place] [facility] Influenza Virus 2015-02-18 Completed [facility] 00:[facility] [place] [facility] Influenza Virus 2015-02-18 Completed [facility] 00:[facility] [place] [facility] Influenza Virus 2015-02-18 Completed [facility] 00:[facility]:00 [place] [facility] Influenza Virus 2015-02-18 Completed [facility] 00:[facility]:00 [place] [facility] Influenza Virus 2015-02-18 Completed [facility] 00:00:00 [place] [facility] Influenza Virus 2015-02-18 Completed [facility] 00:[facility]:00 [place] [facility] Influenza Virus 2015-02-18 Completed [facility] 00:00:00 [place] [facility] Influenza Virus 2015-02-18 Completed [facility] 00:00:00 [place] [facility] Influenza Virus 2015-02-18 Completed [facility] 00:00:00 [place] [facility] Influenza Virus 2015-02-18 Completed [facility] 00:00:00 [place] [facility] Influenza Virus 2015-02-18 Completed [facility] 00:[facility]:00 [place] [facility] Influenza Virus 2015-02-18 Completed [facility] 00:00:00 [place] [facility] Influenza Virus 2015-02-18 Completed [facility] 00:[facility]:00 [place] [facility] Influenza Virus 2015-02-18 Completed [facility] 00:[facility]:00 [place] [facility] Influenza Virus 2015-02-18 Completed [facility] 00:00:00 [place] [facility] Influenza Virus 2015-02-18 Completed [facility] 00:00:00 [place] [facility] Influenza Virus 2015-02-18 Completed [facility] 00:00:00 [place] [facility] Influenza Virus 2015-02-18 Completed [facility] 00:[facility]:00 [place] [facility] Influenza Virus 2015-02-18 Completed [facility] 00:00:00 [place] [facility] Influenza Virus 2015-02-18 Completed [facility] 00:00:00 [place] [facility] Influenza Virus 2015-02-18 Completed [facility] 00:00:00 [place] [facility] Influenza Virus 2015-02-18 Completed [facility] 00:00:00 [place] [facility] Influenza Virus 2015-02-18 Completed [facility] 00:00:00 [place] [facility] Influenza Virus 2015-02-18 Completed [facility] 00:00:00 [place] [facility] Influenza Virus 2015-02-18 Completed [facility] 00:00:00 [place] [facility] Influenza Virus 2015-02-18 Completed [facility] 00:00:00 [place] [facility] Influenza Virus 2015-02-18 Completed [facility] 00:00:00 [place] [facility] Influenza Virus 2015-02-18 Completed [facility] 00:00:00 [place] [facility] Influenza Virus 2015-02-18 Completed [facility] 00:00:00 [place] [facility] Influenza Virus 2015-02-18 Completed [facility] 00:00:00 [place] [facility] Influenza Virus 2015-02-18 Completed [facility] 00:00:00 [place] [facility] Influenza Virus 2015-02-18 Completed [facility] 00:00:00 [place] [facility] Influenza Virus 2015-02-18 Completed [facility] 00:00:00 [place] [facility] Influenza Virus 2015-02-18 Completed [facility] 00:00:00 [place] [facility] Influenza Virus 2015-02-18 Completed [facility] 00:00:00 [place] [facility] Influenza Virus 2015-02-18 Completed [facility] 00:00:00 [place] [facility] Influenza Virus 2015-02-18 Completed [facility] 00:00:00 [place] [facility] Influenza Virus 2015-02-18 Completed [facility] 00:00:00 [place] [facility] Influenza Virus 2015-02-18 Completed [facility] 00:00:00 [place] [facility] Influenza Virus 2015-02-18 Completed [facility] 00:00:00 [place] [facility] Influenza Virus 2015-02-18 Completed [facility] 00:00:00 [place] [facility] Influenza Virus 2015-02-18 Completed [facility] 00:00:00 [place] [facility] Influenza Virus 2015-02-18 Completed [facility] 00:00:00 [place] [facility] Influenza Virus 2015-02-18 Completed [facility] 00:00:00 [place] [facility] Influenza Virus 2015-02-18 Completed [facility] 00:00:00 [place] [facility] Influenza Virus 2015-02-18 Completed [facility] 00:00:00 [place] [facility] Influenza Virus 2015-02-18 Completed [facility] 00:[facility]:00 [place] [facility] Vital Signs Vital Name Observation Time Observation Value Comments Source BP Diastolic 2022-08-23 69 mm[Hg] [facility] 00:00:00 Practice Height 2022-08-23 68 [in_i] [facility] 00:[facility]00 [facility] BMI (Body Mass 2022-08-23 36.5 kg/m2 [facility] 00:00:00 Practice BP Systolic 2022-08-23 109 mm[Hg] [facility] 00:00:00 Practice Body Weight 2022-08-23 240 [lb_av] [facility] 00:00:00 Practice Height 2022-08-09 68 [in_i] [facility] 00:00:00 Practice BP Diastolic 2022-03-24 94 mm[Hg] [facility] 00:00:00 Practice Height 2022-03-24 68 [in_i] [facility] 00:00:00 Practice BMI (Body Mass 2022-03-24 36.9 kg/m2 [facility]) 00:00:00 Practice BP Systolic 2022-03-24 147 mm[Hg] [facility] 00:00:00 Practice Body Weight 2022-03-24 243 [lb_av] [facility] 00:00:00 Practice BP Diastolic 2021-12-23 68 mm[Hg] [facility] 00:00:00 Practice Height 2021-12-23 68 [in_i] [facility] 00:00:00 Practice BMI (Body Mass 2021-12-23 37.9 kg/m2 [facility]) 00:00:00 Practice BP Systolic 2021-12-23 107 mm[Hg] [facility] 00:00:00 Practice Body Weight 2021-12-23 249 [lb_av] [facility] 00:00:00 Practice BP Diastolic 2021-09-22 80 mm[Hg] [facility] 00:00:00 Practice Height 2021-09-22 68 [in_i] [facility] 00:00:00 Practice BMI (Body Mass 2021-09-22 41.1 kg/m2 [facility]) 00:00:00 Practice BP Systolic 2021-09-22 131 mm[Hg] [facility] 00:00:00 Practice Body Weight 2021-09-22 270 [lb_av] [facility] 00:00:00 Practice BP Diastolic 2021-06-07 82 mm[Hg] [facility] 00:00:00 Practice Height 2021-06-07 68 [in_i] [facility] 00:00:00 Practice BMI (Body Mass 2021-06-07 40.1 kg/m2 [facility]) 00:00:00 Practice BP Systolic 2021-06-07 132 mm[Hg] [facility] 00:00:00 Practice Body Weight 2021-06-07 264 [lb_av] [facility] 00:00:00 Practice BP Diastolic 2020-09-29 82 mm[Hg] [facility] 00:00:00 Practice Height 2020-09-29 68 [in_i] [facility] 00:00:00 Practice BMI (Body Mass 2020-09-29 39.1 kg/m2 [facility]) 00:00:00 Practice BP Systolic 2020-09-29 126 mm[Hg] [facility] 00:00:00 Practice Body Weight 2020-09-29 257.2 [lb_av] [facility] 00:00:00 Practice BP Diastolic 2020-06-17 78 mm[Hg] [facility] 00:00:00 Practice Height 2020-06-17 68 [in_i] [facility] 00:00:00 Practice BMI (Body Mass 2020-06-17 38.6 kg/m2 [facility]) 00:00:00 Practice BP Systolic 2020-06-17 115 mm[Hg] [facility] 00:00:00 Practice Body Weight 2020-06-17 254 [lb_av] [facility] 00:00:00 Practice Systolic blood 2019-06-18 137 mm[Hg] [facility] pressure 20:22:00 [facility] Diastolic blood 2019-06-18 88 mm[Hg] [facility] pressure 20:22:00 [facility] Heart rate 2019-06-18 70 /min [facility] 20:17:00 [facility] Body temperature 2019-06-18 36.28 Patti [facility] 20:17:00 [facility] Respiratory rate 2019-06-18 16 /min [facility] 20:17:00 [facility] Body weight 2019-06-18 103.647 kg University of 20:17:00 [facility] BMI 2019-06-18 34.74 kg/m2 University [facility] 20:17:00 [facility] Systolic blood 2019-06-10 157 mm[Hg] [facility] pressure 01:41:00 [facility] Diastolic blood 2019-06-10 97 mm[Hg] [facility] pressure 01:41:00 [facility] Oxygen saturation 2019-06-10 93 /min [facility] in Arterial blood 01:41:00 [facility] by Pulse oximetry [place] [facility] rate 2019-06-10 80 /min University of 01:38:00 [facility] Body temperature 2019-06-10 37.11 Patti [facility] 01:38:00 [facility] Respiratory rate 2019-06-10 16 /min [facility] 01:38:00 [facility] Body height 2019-06-10 172.7 cm University [facility] 01:38:00 [facility] Body weight 2019-06-10 105.325 kg University of 01:38:00 [facility] BMI 2019-06-10 35.31 kg/m2 [facility] 01:38:00 [facility] Weight 2020-11-22 [facility] 13:50:00 Height 2020-11-22 [facility] 13:50:00 Temperature Oral 2020-11-22 97.6 F [facility] Wiliam rmann (F) 13:50:00 Heart Rate 2020-11-22 [facility] 13:50:00 Diastolic (mm Hg) 2020-11-22 [facility] 13:50:00 Systolic (mm Hg) 2020-11-22 [facility] 13:50:00 Weight 2019-04-28 [facility] 14:30:00 Height 2019-04-28 [facility] 14:30:00 Heart Rate 2019-04-28 [facility] 14:30:00 Diastolic (mm Hg) 2019-04-28 [facility] 14[facility]30:00 Systolic (mm Hg) 2019-04-28 [facility] 14:30:00 Weight 2018-12-16 [facility] 14:45:00 Height 2018-12-16 [facility] 14:45:00 Heart Rate 2018-12-16 [facility] 14:45:00 Diastolic (mm Hg) 2018-12-16 [facility] 14:45:00 Systolic (mm Hg) 2018-12-16 [facility] 14:45:00 BP Systolic 2017-12-26 108 mm[Hg] Location: RUE; [facility] 10:04:00 Position: Sitting BP Diastolic 2017-12-26 68 mm[Hg] Location: [facility]UE; [facility] 10:04:00 Position: Sitting Height 2017-12-26 69 [in_us] [facility] 10:04:00 Weight 2017-12-26 211.5 [lb_av] [facility] 10:04:00 Body Mass Index 2017-12-26 31.23 kg/m2 [facility] Calculated 10:04:00 Temperature 2017-12-26 97.9 [degF] Method: Oral [facility] 10:04:00 Heart Rate 2017-12-26 55 /min Quality: Normal [facility] 10:04:00 Respiration Rate 2017-12-26 19 /min Quality: Normal [facility] 10:04:00 O2 SAT 2017-12-26 95 % Source: [facility] 10:04:00 Systolic (mm Hg) 2017-12-21 [facility] 17:30:00 Diastolic (mm Hg) 2017-12-21 [facility] 17:30:00 Respitory Rate 2017-12-21 [facility] 17:30:00 Systolic (mm Hg) 2017-12-21 [facility] 17:15:00 Diastolic (mm Hg) 2017-12-21 [facility] 17:15:00 Respitory Rate 2017-12-21 [facility] 17:15:00 Systolic (mm Hg) 2017-12-21 [facility] 17:00:00 Diastolic (mm Hg) 2017-12-21 [facility] 17:00:00 Respitory Rate 2017-12-21 [facility] 17:00:00 BP Systolic 2017-12-12 104 mm[Hg] Location: RUE; [facility] 10:34:00 Position: Sitting BP Diastolic 2017-12-12 68 mm[Hg] Location: [facility]; [facility] 10:34:00 Position: Sitting Height 2017-12-12 69 [in_us] [facility] 10:34:00 Weight 2017-12-12 207.5 [lb_av] [facility] 10:34:00 Body Mass Index 2017-12-12 30.64 kg/m2 [facility] Calculated 10:34:00 Temperature 2017-12-12 97.6 [degF] Method: Oral [facility] 10:34:00 Heart Rate 2017-12-12 50 /min Quality: Normal [facility] 10:34:00 Respiration Rate 2017-12-12 19 /min Quality: Normal [facility] 10:34:00 O2 SAT 2017-12-12 95 % Source: RA [facility] 10:34:00 Respitory Rate 2016-12-06 [facility] 21:13:00 Heart Rate 2016-12-06 [facility] 21:13:00 Systolic (mm Hg) 2016-12-06 [facility] 21:13:00 Diastolic (mm Hg) 2016-12-06 [facility] 21:13:00 Temperature Oral 2016-12-06 98.7 F [facility] (F) 21:13:00 Heart Rate 2016-12-06 [facility] 17:16:00 Temperature Oral 2016-12-06 98.5 F [facility] (F) 17:16:00 Systolic (mm Hg) 2016-12-06 [facility] 17:16:00 Diastolic (mm Hg) 2016-12-06 [facility] 17:16:00 Respitory Rate 2016-12-06 [facility] 17:16:00 Systolic (mm Hg) 2016-12-06 [facility] 12:40:00 Diastolic (mm Hg) 2016-12-06 [facility] 12:40:00 Respitory Rate 2016-12-06 [facility] 12:40:00 Heart Rate 2016-12-06 Janina Viramontes n 12:40:00 Temperature Oral 2016-12-06 98.4 F Janina mukherjee (F) 12:40:00 BMI Calculated 2016-12-04 [facility] 23:06:00 Weight 2016-12-04 Janina Shahan n 23:06:00 Height 2016-12-04 172.72 cm Janina Shahan n 23:06:00 Height 2016-11-30 172.72 cm Janina Viramontes n 14:08:00 BMI Calculated 2016-11-30 [facility] 14:08:00 Weight 2016-11-30 Janina Shahan n 14:08:00 Procedures Procedure Date / Time Performing Clinician Source Performed DEXA AXIAL (HIP AND SPINE) 2022-06-09 21:09:45 Requisition, Kai manriquez [facility] CONSENT/REFUSAL FOR 2022-06-09 19:50:58 Doctor Unassigned, [facility] DIAGNOSIS AND TREATMENT [facility] ASSIGNMENT OF BENEFITS 2022-06-09 19:50:40 Doctor Unassigned, [facility] EXTERNAL PROVIDER - ADC 2022-05-02 06:01:00 Doctor Unassdimitris, [facility] REFERRAL [facility] DEXA AXIAL (HIP AND SPINE) 2021-07-06 14:39:20 Requisition, Kai manriquez [facility] XR CHEST 2 VW 2021-07-06 14:28:00 Requisition, [facility] NOTICE OF PRIVACY 2021-07-06 14:07:36 Doctor Unassigned, [facility] PRACTICES [facility] CONSENT/REFUSAL FOR 2021-07-06 14:07:23 Doctor Unassigned, [facility] DIAGNOSIS AND TREATMENT [facility] ASSIGNMENT OF BENEFITS 2021-07-06 14:07:07 [facility], [facility] ASSIGNMENT OF BENEFITS 2021-06-10 17:19:38 Doctor Unassigned, [facility] REFERRAL- REQUEST/RESPONSE 2020-04-06 06:01:00 Doctor Maisha , [facility] DEXA PERIPHERAL (FOREARM) 2019-06-20 14:38:04 Haider [facility] DEXA AXIAL (HIP AND SPINE) 2019-06-20 14:37:36 Haider [facility] XR CHEST 2 VW 2019-06-10 02:26:47 Jeffrey Gonzalez [facility] NOTICE OF BILLING 2019-06-10 01:05:59 Doctor Unassigned, [facility] PRACTICES FOR MEDICARE [facility] PATIENTS [facility] PATIENT FINANCIAL 2019-06-10 01:05:10 Doctor [facility]assigned, [facility] POLICY [facility] NO SHOW OR MISSED 2019-06-10 01:04:57 Doctor Unassigned, [facility] APPOINTMENT POLICY [facility] ACKNOWLEDGEMENT POCT FLU A AND B 2019-06-09 00:00:00 Danielle Jaquez [facility] (MOLECULAR) [facility] Hernia Repair 2016-11-21 00:00:00 [facility] Denisse rodriguez Practice Colonoscopy 2016-09-21 00:00:00 [facility] Denisse rodriguez Practice Open reduction and 2001-04-23 00:00:00 [facility] internal fixation of fracture Catheterization of both 2000-04-23 00:00:00 Kishan braxton [place] left and right heart History of [facility] surgery History of Cardiac [facility] catheterization Colonoscopy [facility] Operation [facility] Ankle Arthroscopy/surgery Shira Nava Practice Plan of Care Planned Activity Planned Date Details Comments Source Diagnostic Test 2022-08-23 glucose, fingerstick, Nivia Nava Pending 00:00:00 blood [code = Practice glucose, fingerstick, blood] Diagnostic Test 2022-08-23 hemoglobin A1C, [facility] Maira ricardo Pending 00:00:00 fingerstick [code = Practice hemoglobin A1C, fingerstick] Future Appointment 2022-11-23 Rafa GrantGenevieve [facility] 09:30:[address]; Practice [address], [place] [address] Future Appointment 2022-11-23 Genevieve Payan [facility] 00:00:[address]; Practice [address], [place] [address] Encounters Start End Encounter Admission Attending Care Care Encounter Source Date/Time Date/Time Type Type Clinicians Facility Department ID 2022-08-23 2022-08-23 Outpatient Daniel_T VFP VFP [id number] [address] [place] [address] 00:00:00 00:00:00 [id number] Family Practic e 2022-08-23 2022-08-23 Outpatient Daniel_T VFP VFP [id number] [address] [place] [address] 00:00:00 00:00:00 [id number] Family Practic e 2022-08-23 2022-08-23 Rafa VFP [place] - [id number] [place] illage 00:00:00 00:00:00 Judy [facility] Pract[facility] franny URRUTIA: [id number] [place] - e Shadow VM_HOU_[place] [address], [place] [address] , Ph. 2022-08-09 2022-08-09 Outpatient Daniel_T VFP VFP [id number] [address] [place] [address] 00:00:00 00:00:00 [id number] Family Practic e 2022-08-09 2022-08-09 Outpatient Daniel_T VFP VFP [id number] [address] [place] [address] 00:00:00 00:00:00 [id number] Family Practic e 2022-08-09 2022-08-09 Rafa VFP [place] - [id number] [facility] illage 00:00:00 00:00:00 Judy [facility] Pracnikita blanton MD: [id number] [place] - [place] Shadow VM_JOSESITOU_[place] [address], [place] [address] , Ph. 2022-06-09 2022-06-09 Outpatient R RADIOLOGY [facility] [id number] Univers 13:51:05 23:59:00 ity of [facility] 2022-06-09 2022-06-09 Hospital Radiology [facility] [id number] Univers 13:51:05 23:59:00 Encounter ROBIN [id number] ity [facility] [id number] [facility] [phone] [place] [address] Branch 2022-06-09 2022-06-09 Orders Doctor LAINE [id number] [facility] 00:00:00 00:00:00 Only Unassigned, KAYLAH [id number] ity of [place] [facility] [id number] Ronny as [id number] [address] 2022-06-02 2022-06-02 Outpatient R JOYCE NUNO [facility] [id number] Univers 14:30:00 15:00:59 AGGIE ity of [facility] 2022-06-02 2022-06-02 Ancillary Cheyenne Reddy [facility] [id number] .[id number] Univers 14:30:00 15:00:59 Visit Aggie Nuno [id number] ity of [facility] [id number] [phone] [place]ical NAL [address] [facility] 2022-05-31 2022-05-31 Ancillary John Redyd [facility] [id number]. [id number] Univers 08:45:00 09:30:00 Visit Aggie Nuno [id number] ity of [facility] [id number] [phone] [place]ical NAL 179 [facility] 2022-05-29 2022-05-29 Ancillary John Reddy [facility] [id number]. [id number] Univers 13:45:00 14:30:00 Visit Aggie Nuno [id number] ity of [facility] [id number] [id number] [place]ical NAL 179 [facility] 2022-05-26 2022-05-26 Ancillary Cheyenne Reddy [facility] [id number] .[id number] Univers 08:45:00 09:58:54 Visit Aggie Nuno [id number] ity of [facility] [id number] [phone] [place]ical NAL 179 [facility] 2022-05-23 2022-05-23 Ancillary Cheyenne Reddy [facility] [id number] .114 [id number] Univers 15:15:00 16:28:23 Visit Aggie Nuno [id number] ity [id number] [phone] [place] dical NAL [address] [facility] 2022-05-18 2022-05-18 Ancillary John Reddy Maira [facility] 1.2.840. [id number] Univers 08:00:00 08:45:00 Visit Aggie Nuno [id number] ity [id number] [phone] [place] dical NAL 179 [facility] 2022-05-15 2022-05-15 Ancillary Barry John Rao [facility] 1.2.840. 114 [id number] Univers 15:15:00 16:00:00 Visit Aggie Nuno [id number] ity [id number] [phone] [place]ical NAL 179 [facility] 2022-05-12 2022-05-12 Ancillary Cheyenne Reddy [facility] 1.2.840 .114 [id number] Univers 09:30:00 10:15:00 Visit Aggie Nuno 350.1.13.10 ity of [place] [phone] Ga dical NAL 179 [facility] 2022-05-10 2022-05-10 Ancillary John Reddy [facility] 1.2.840. 114 [id number] Univers 16:00:00 16:46:49 Visit Aggie Nuno 350.1.13.10 it[place] of [place] [phone] Ga dical NAL 179 [facility] 2022-05-02 2022-05-02 Outpatient R NURYS [facility] [id number] Univers 07:15:00 08:44:16 AGGIE ity of [facility] 2022-05-02 2022-05-02 Ancillary Lia Ferguson [facility] 1.2.840. 114 [id number] Univers 07:15:00 08:44:16 Visit Aggie Nuno 350.1.13.10 ity of [place] [phone] Ga dical NAL 179 [facility] 2022-05-02 2022-05-02 Orders Doctor LAINE 1.2.840.114 [id number] Univers 00:00:00 00:00:00 Only Unassigned, KAYLAH 350.1.13.10 it[facility] of [facility] 4.2.7.2.686 Ronny as [phone] [facility] [address] [place] 2022-03-24 2022-03-24 Outpatient Daniel_T VFP VFP [id number] [address] [place] [address] 00:00:00 00:00:00 [id number] Family Practic e 2022-03-24 2022-03-24 Rafa VFP [place] - [id number] V illage 00:00:00 00:00:00 [facility] Rudy Medical - Pracnikita blanton MD: [id number] [place] - lubna Shadow BARBRA_ENOCH_Leon [facility], [address], [place] [address] , Ph. 2021-12-30 2021-12-30 Outpatient Daniel_T VFP VFP [id number] [address] [place] [address] 00:00:00 00:00:00 [id number] Family Practic e 2021-12-27 2021-12-27 Outpatient Daniel_T VFP VFP [id number] [address] [place] [address] 00:00:00 00:00:00 [id number] Family Practic e 2021-12-23 2021-12-23 Outpatient Daniel_T VFP VFP [id number] [address] [place] [address] 00:00:00 00:00:00 [id number] Family Practic e 2021-12-23 2021-12-23 Rafa VFP [place] - [id number] V illage 00:00:00 00:00:00 [facility] Rudy Medical - Pracnikita blanton MD: [id number] BARBRA_ENOCH_Leon calvo Shadow [facility], [address], [place] [address] , Ph. 2021-10-31 2021-10-31 Outpatient ENOCH BELLAMYU - [id number] eClinic 16:51:00 16:51:00 Rheumatol Rheumatolog alWorks ogy y [facility] 2021-10-13 2021-10-13 Outpatient Daniel_T VFP VFP [id number] 5-20 Village 09:07:00 09:07:00 [id number] Family Practic e 2021-09-22 2021-09-22 Rafa Grant_T VFP [place] - [id number] 0 Village 00:00:00 00:00:00 [facility] [id number] Family GrantMagdalena MD: [id number] VM_ENOCH_Leon calvo Shadow [place] [facility], [address], [place] [address] , Ph. 2021-09-14 2021-09-14 Outpatient Daniel_T VFP P [id number] 5-20 [facility] 04:11:00 04:11:00 [id number] Family Practic e 2021-08-09 2021-08-09 Outpatient Daniel_T VFP VFP [id number] 5-20 [facility] 02:20:00 02:20:00 [id number] Family Practic e 2021-07-07 2021-07-07 Telephone Anaya [facility] 1.2.840.114 [id number] Univers 00:00:00 00:00:00 Shae PRIMARY 350.1.13.10 it y of [place]2.[place].2.686 [place] [facility] [phone] Ga dical [address] 2021-07-06 2021-07-06 [facility] Radiology [facility] 1.2.840.114 [id number] Univers 09:00:00 23:59:00 Encounter [place] 350.1.13.10 ity [facility] 4.2.7.2.686 [place] [phone] [facility] [address] 2021-07-06 2021-07-06 Outpatient R UNKNOWN, [facility] [id number] Univers 09:09:07 08:59:00 ATTENDING ity of [facility] 2021-07-06 2021-07-06 Hospital Unknown, Attending [facility] 1.2.84 0.114 [id number] Univers 08:40:00 08:59:00 Encounter Edgardo KELLY 350.1.13.10 ity [facility] 4.2.7.2.686 [facility] s [place] [id number] [facility] [address] 2021-07-05 2021-07-05 Outpatient Daniel_T VFP VFP [id number] -[id number] Village 04:55:00 04:55:00 [id number] Family Practic e 2021-07-04 2021-07-04 Outpatient PRL - PRL - [id number] eClinic 08:50:00 08:50:00 Rheumatol Rheumatolog alWorks ogy y [facility] 2021-06-16 2021-06-16 Outpatient PRL - PRL - [id number] eClinic 09:15:00 09:15:00 Rheumatol Rheumatolog alWorks ogy y [facility] 2021-06-10 2021-06-10 Grain Unloader Cari, Adc Lab Main [facility] 1.2.8 40.114 [id number] Univers 12:00:00 12:15:00 Visit Gamaliel Ferrera 350.1.13.10 ity [facility] 4.2.7.2.686 [facility] [phone] [address] 2021-06-10 2021-06-10 Outpatient Alyce FERRERA [facility] [id number] Univers 12:00:00 12:00:[address] [facility] 2021-06-10 2021-06-10 Orders Doctor JANG 1.2.840.114 [id number] Univers 00:00:00 00:00:00 Only Unassigned, KAYLAH 350.1.13.10 ity of [place] [facility] 4.2.7.2.686 Ronny [phone] [facility] [address] 2021-06-09 2021-06-09 Outpatient Daniel_T VFP VFP [id number] 5-20 Village 12:48:00 12:48:00 [id number] Family Practic e 2021-06-07 2021-06-07 Rafa Farrellel_T VFP [place] - [id number] 0 Village 00:00:00 00:00:00 [facility] [id number] Family GrantMagdalena MD: [id number] VM_HOU_Leon calvo [facility], [address], [place] [address] , Ph. 2021-06-03 2021-06-03 Outpatient PRL - PRL - [id number] eClinic 10:02:00 10:02:00 Rheumatol Rheumatolog alWorks ogy y [facility] 2021-05-11 2021-05-11 Outpatient Daniel_T VFP VFP [id number] [facility] 10:15:00 10:15:00 [id number] Family Practic e 2021-03-28 2021-03-28 Outpatient PRL - PRL - [id number] eClinic 09:00:00 09:00:00 Rheumatol Rheumatolog alWorks ogy y [facility] 2021-02-17 2021-02-17 Outpatient Daniel_T VFP VFP [id number] [facility] 09:19:00 09:19:00 [id number] Family Practic e 2021-02-11 2021-02-11 Outpatient Daniel_T VFP VFP [id number] [facility] 02:26:00 02:26:00 [id number] Family Practic e 2020-11-24 2020-11-24 Outpatient PRL - PRL - [id number] eClinic 21:10:00 21:10:00 Rheumatol Rheumatolog alWorks ogy y [facility] 2020-11-22 2020-11-22 Outpatient PRL - PRL - [id number] eClinic 08:50:00 08:50:00 Rheumatol Rheumatolog alWorks ogy y [facility] 2020-10-01 2020-10-01 Outpatient Daniel_T VFP VFP [id number] 20 [facility] 05:18:00 05:18:00 [id number] Family Wild e 2020-09-29 2020-09-29 Rafa Budel_T VFP [place] - [id number] 0 Village 00:00:00 00:00:00 [facility] [id number] Family GrantMagdalena MD: [id number] BARBRA_ENOCH_Jhonnylashell e [address], [place] [address] , Ph. 2020-08-31 2020-08-31 Outpatient PRL - PRL - [id number] eClinic 10:13:00 10:13:00 Rheumatol Rheumatolog alWorks ogy y [facility] 2020-08-05 2020-08-05 Outpatient PRL - PRL - [id number] eClinic 09:20:00 09:20:00 Rheumatol Rheumatolog alWorks ogy y [facility] 2020-07-12 2020-07-12 Outpatient Daniel_T VFP [facility] [id number] [facility] 03:13:00 03:13:00 [id number] Family Practic e 2020-07-09 2020-07-09 Outpatient Daniel_T VFP [facility] [id number] [address] 11:50:00 11:50:00 [id number] Family Practic e 2020-07-06 2020-07-06 Patient Aron TNRL 1.2.840.114 [id number] Univers 00:00:00 00:00:00 Outreach [facility] 350.1.13.10 [facility] 4.2.7.2.686 Jamie BREWER [phone] Ga dical [address] 2020-06-19 2020-06-19 Outpatient Daniel_T VFP [facility] [id number] [address] [place] [address] 09:43:00 09:43:00 [id number] Family Practic e 2020-06-17 2020-06-17 Rafa Rudy_T VFP [place] - [id number] 0 Village 00:00:00 00:00:00 [facility] [id number] Family GrantMagdalena MD: [id number] BARBRA_ENOCH_Leon calvo Shadow [address] [place] [facility], [address], [place] [address] , Ph. 2020-05-19 2020-05-19 Ancillary John Reddy [facility] 1.2.840. 114 [id number] [facility] 08:00:19 09:29:36 Visit Aggie Nuno 350.1.13.10 ity of [place] [phone] Ga dical nal [address] [facility] 2020-05-14 2020-05-14 Ancillary BarryCheyenne Tony [facility] 1.2.840 .114 [id number] [facility] 08:47:35 09:23:59 Visit Aggie Nuno 350.1.13.10 ity of [place] [phone] Ga dical nal [address] [facility] 2020-05-07 2020-05-07 Ancillary Thu Castro [facility] 1 .2.840.114 [id number] [facility] 08:36:21 09:19:17 Visit Aggie Nuno 350.1.13.10 ity of [place].2.[place] [phone] Ga dical nal 179 [address] [facility] 2020-05-05 2020-05-05 Ancillary Barry John Rao [facility] 1.2.840. 114 [id number] [facility] 08:54:30 09:34:30 Visit Aggei Nuno 350.1.13.10 ity of [place].2.[place].2.[place] [phone] Ga dical nal 179 [address] [facility] 2020-05-05 2020-05-05 Outpatient R [facility] [id number] Univers 08:40:00 08:40:00 ity of [facility] 2020-05-03 2020-05-03 Ancillary Barry John Rao [facility] 1.2.840. 114 [id number] Univers 09:21:34 10:01:34 Visit Aggie Nuno 350.1.13.10 ity of [place].2.[place] [phone] Ga dical nal 179 [address] [facility] 2020-04-30 2020-04-30 Ancillary Thu Castro [facility] 1 .2.840.114 [id number] Univers 09:23:53 13:54:51 Visit Aggie Nuno 350.1.13.10 ity of [place].2.7.2.[place] [phone] Ga dical nal [address] 2020-04-28 2020-04-28 Ancillary John Reddy [facility] 1.2.840. 114 [id number] [facility] 07:51:19 08:31:19 Visit Aggie Nuno 350.1.13.10 ity of [place] 4.2.[place].2.[place] Profess[place] [phone] Ga dical nal [address] 2020-04-21 2020-04-21 Ancillary John Reddy [facility] 1.2.840. 114 [id number] [facility] 09:11:16 09:51:16 Visit Aggie Nuno 350.1.13.10 ity of [place] 4.[place].2.[place] [phone] Ga dical nal [address] [facility] 2020-04-19 2020-04-19 Ancillary John Reddy [facility] 1.2.840. 114 [id number] Univers 09:22:58 10:02:58 Visit Aggie Nuno 350.1.13.10 it[place] of [place] 4.[place].2.686 [place] [phone] Ga dical nal [address] [facility] 2020-04-14 2020-04-14 Ancillary Thu Castro [facility] 1 .2.840.114 [id number] Univers 09:19:59 09:53:03 Visit Aggie Nuno 350.1.13.10 ity of [place] 4.2.7.2.[place] [phone] Ga dical nal [address] [facility] 2020-04-12 2020-04-12 Ancillary Thu Castro [facility] 1 .2.840.114 [id number] Univers 08:17:12 08:53:36 Visit Aggie Nuno 350.1.13.10 it[place] of [place].2.[place] [phone] Me dical nal 179 [facility] 2020-04-06 2020-04-06 Ancillary Daryl Thu Luo [facility] 1 .2.840.114 [id number] Univers 09:00:20 10:01:38 Visit Aggie Nuno 350.1.13.10 it[place] of [place].2.[place] [phone] Me dical nal 179 [facility] 2020-04-06 2020-04-06 [facility] [id number] Univers 09:00:00 09:00:00 AGGIE ity of [facility] 2020-04-06 2020-04-06 Orders Doctor LAINE 1.2.840.114 [id number] Univers 00:00:00 00:00:00 Only Unassigned, KAYLAH 350.1.13.10 ity of [place] [facility] 4.2.7.2.686 Ronny as [phone] [facility] [address] [place] 2020-04-05 2020-04-05 Laboratory Only, Adc Test [facility] 1.2.840. 114 [id number] Univers 13:32:02 13:47:02 Only Gamaliel Ferrera 350.1.13.10 it[place] of [place].2.686 [place] [id number] [facility] [address] [place] 2020-04-05 2020-04-05 Outpatient R [facility] [id number] Univers 13:15:00 13:15:00 ity of [facility] 2020-04-01 2020-04-01 Refill Castro [facility] 1.2.840.114 [id number] Univers 00:00:00 00:00:00 ISABELLE garcia 350.1.13.10 ity of [place].2.[place] C[place] AT [phone] Ga dical VICTORY 198 [facility] 2020-04-01 2020-04-01 Refbrittany Lynn [facility] 1.2.840.114 [id number] Univers 00:00:00 00:00:00 Rojelio Leone SPECIALTY 350.1.13.10 ity of CARE 4.2.7.2.686 [facility] [place] AT [phone] Me dical VICTORY 198 [facility] 2020-03-30 2020-03-30 Outpatient ENOCH Jaylon BELLAMYU - [id number] eClinic 08:44:00 08:44:00 Rheumatol Rheumatolog alWorks ogy y [facility] 2020-03-29 2020-03-29 Outpatient PRL - PRL - [id number] eClinic 10:30:00 10:30:00 Rheumatol Rheumatolog alWorks ogy y [facility] 2020-03-17 2020-03-17 Outpatient R UNKNOWN, [facility] [id number] Univers 19:20:00 19:20:[address] [facility] 2020-03-17 2020-03-17 Outpatient Daniel_T VFP VFP [id number] - [facility] 04:02:00 04:02:00 [id number] Family Practic e 2020-03-11 2020-03-11 Outpatient ENOCH Jaylon BELLAMYU - [id number] eClinic 12:09:00 12:09:00 Rheumatol Rheumatolog alWorks ogy y [facility] 2020-02-17 2020-02-17 Outpatient PRL - PRL - [id number] eClinic 10:15:00 10:15:00 Rheumatol Rheumatolog alWorks ogy y [facility] 2020-02-06 2020-02-06 Telephone [employer] [facility] 1.2.840.114 [id number] Univers 00:00:00 00:00:00 njumon, SPECIALTY 350.1.13.10 ity of [place] CARE 4.2.7.2.686 [facility] C[facility] AT [phone] Ga dical VICTORY 198 [facility] 2020-02-02 2020-02-02 Telephone [employer] [facility] 1.2.840.114 [id number] Univers 00:00:00 00:00:00 njumon, SPECIALTY 350.1.13.10 ity of [place] CARE 4.2.7.2.686 [facility] CENTER AT [phone] Ga dical VICTORY 198 [facility] 2020-02-02 2020-02-02 Telephone [employer] [facility] 1.2.840.114 [id number] Univers 00:00:00 00:00:00 njumon, SPECIALTY 350.1.13.10 ity of [place].2.[place] C[place] AT [phone] Ga carlos MINAY[address] 2020-01-30 2020-01-30 Refill Deni Lynn 1.2.840.114 [id number] Univers 00:00:00 00:00:00 Radames Pediatric 350.1.13.10 ity of [place] and [place].2.[place] [id number] [address] 2019-12-18 2019-12-18 Outpatient ENOCH - ENOCH - [id number] eClinic 13:52:00 13:52:00 Rheumatol Rheumatolog alWorks ogy y [facility] 2019-12-04 2019-12-04 Refill Castro Cheema 1.2.840.114 [id number] Univers 00:00:00 00:00:00 leidyumon, Pediatric 350.1.13.10 ity of [place] and 4.2.7.2.[place] Adult [phone] [address] 2019-11-03 2019-11-03 Refill Deni Lynn 1.2.840.114 [id number] Univers 00:00:00 00:00:00 Radames Pediatric 350.1.13.10 ity of [place] and 4.2.7.2.686 [place] [id number] [address] 2019-10-27 2019-10-27 Outpatient PRL - PRL - [id number] eClinic 08:45:00 08:45:00 Rheumatol Rheumatolog alWorks ogy y [facility] 2019-09-10 2019-09-10 Refill Deni Lynn 1.2.840.114 [id number] Univers 00:00:00 00:00:00 Radames Pediatric 350.1.13.10 ity of [place] and [place]2.[place].2.686 [place] [phone] [address] 2019-06-20 2019-06-20 [facility] 1.2.840.114 [id number] Univers 07:58:00 23:59:00 Encounter radha Robin 350.1.13.10 ity of [place].7.2.686 [place] [phone] [facility] [address] [place] 2019-06-20 2019-06-20 Outpatient R LYNDSEYJH [facility] [id number] Univers 07:57:43 07:57:00 krista GARCIAy of [facility] 2019-06-20 2019-06-20 [facility] 1.2.840.114 [id number] Univers 07:57:00 07:57:00 Encounter leidyodalys Robin 350.1.13.10 [facility] [place] 4.2.7.2.686 [place] [id number] [facility] [address] [place] 2019-06-18 2019-06-18 Office CurtisJaylonJh Deni 1.2.840.114 [id number] Univers 14:09:42 14:56:45 Visit radha Pediatric 350.1.13.10 ity of [facility] s and 4.2.7.2.[place] [phone] [facility] [address] [facility] 2019-06-18 2019-06-18 Outpatient R CASTRO [facility] [id number] Univers 14:15:00 14:15:00 ivory GARCIA of [facility] 2019-06-10 2019-06-10 Patient Doctor [facility] 1.2.840.114 [id number] Univers 00:00:00 00:00:00 Secure Msg Unassigned, Health 350.1.13.10 ity of [place] Surgical 4.2.7.2.686 Ronny as Specialti [phone] [address] 2019-06-09 2019-06-09 Outpatient R SYMONE [facility] [id number] Univers 20:05:00 23:59:00 JEFFREY dodson o f [facility] 2019-06-09 2019-06-09 Hospital [facility] 1.2.155.565 [id number] Univers 20:05:00 23:59:00 Encounter [facility] 350.1.13.10 ity of Surgical 4.2.7.2.686 [place] as Specialti [phone] Me dical es 8[facility] 2019-06-09 2019-06-09 Urgent SymoneJeffrey charles [facility] 1.2.840. 114 [id number] Univers 19:05:19 20:47:50 Care Unknown, [facility] 350.1.13.10 ity of Surgical 4.2.7.2.686 [place] as Specialti [phone] Me dical es [facility] 2019-06-09 2019-06-09 Orders Doctor LAINE 1.2.840.114 [id number] Univers 00:00:00 00:00:00 Only Unassigned, KAYLAH 350.1.13.10 ity of [place] [facility] 4.2.7.2.686 Ronny as [phone] [address] 2019-04-30 2019-04-30 Outpatient ENOCH BELLAMYU - [id number] eClinic 15:07:00 15:07:00 Rheumatol Rheumatolog alWorks ogy y [facility] 2019-04-28 2019-04-29 Outpt Diag nullFlavo [facility] [id number] Memoria 19:36:00 05:59:00 Services r Outpatient 00 l Imaging [facility] 2019-04-28 2019-04-29 Outpt Diag nullFlavo [facility] [id number] Memoria 19:36:00 05:59:00 Services r Outpatient 00 l Imaging [facility] 2019-04-28 2019-04-28 Outpatient Tracie, MHOIP MHOIP [id number] 13:36:00 23:59:00 Stephanie 2019-04-28 2019-04-28 Outpatient PRL - PRL - [id number] eClinic 08:30:00 08:30:00 Rheumatol Rheumatolog alWorks ogy y [facility] 2018-12-16 2018-12-16 Outpatient ENOCH BELLAMYU - [id number] eClinic 10:15:00 10:15:00 Rheumatol Rheumatolog alWorks ogy y [facility] 2018-12-16 2018-12-16 Outpatient PRL - PRL - [id number] eClinic 09:45:00 09:45:00 Rheumatol Rheumatolog alWorks ogy y [facility] 2017-12-26 2017-12-26 Appointmen RIKI FLETCHER [facility] [id number] [place] 09:30:00 09:30:00 t; JOSEY FLETCHER cic and Ph philly DOWLING M.D. Vascular ans M.Gilberto Surgery at [facility] 2017-12-21 2017-12-21 Bedded [facility] [id number] Memoria 14:04:00 17:46:00 Outpatient r [place] 03 [facility] 2017-12-21 2017-12-21 [facility] [place] [id number] Memoria 14:04:00 17:46:00 Outpatient r [place] 03 [facility] 2017-12-21 2017-12-21 [facility] [id number] 09:04:00 12:46:00 Josey 03 2017-12-17 2017-12-18 Outpatient [facility] [id number] Memoria 12:48:00 04:59:00 r Jann 02 [facility] 2017-12-17 2017-12-18 Outpatient [facility] 4636 [id number] Memoria 12:48:00 04:59:00 r [place] 02 [facility] 2017-12-17 2017-12-17 [facility] [id number] 07:48:00 23:59:00 Josey 02 2017-12-12 2017-12-12 Appointmen RIKI FLETCHER [facility] [id number] [place] 10:15:00 10:15:00 t; JOSEY FLETCHER cic and Ph philly DOWLING M.D. Vascular ans MRohan Surgery at [facility] 2017-03-28 2017-03-28 Appointmen RIKI FLETCHER UTP [id number] [place] 09:45:00 09:45:00 t; JOSEY FLETCHER, Jose Carlos DOWLING M.D. ans [place] 2016-12-27 2016-12-27 Appointliset FLETCHERRIKI UTP [id number] [place] 14:30:00 14:30:00 t; JOSEY FLETCHER, Monet Gifford M.D. 2016-12-04 2016-12-06 Inpatient [facility] [id number] Memoria 13:52:00 22:18:00 r Jann 00 [facility] 2016-12-04 2016-12-06 Inpatient [facility] [id number] Memoria 13:52:00 22:18:00 r [place] 00 [facility] 2016-12-04 2016-12-06 Outpatient GideonDILIP james MHSE [id number] 08:52:00 17:18:00 Josey 2016-11-30 2016-12-01 Outpatient [facility] 4636 [id number] Memoria 13:30:00 04:59:00 r [place] 01 [facility] 2016-11-30 2016-12-01 Outpatient [facility] [id number] Memoria 13:30:00 04:59:00 r Jann 01 [facility] 2016-11-30 2016-11-30 Outpatient GideonerikaDILIP SE [id number] 08:30:00 23:59:00 [facility] 2016-11-29 2016-11-29 Appointliset FLETCHER RIKI UTP [id number] [place] 14:15:00 14:15:00 t; JOSEY FLETCHER, Monet Gifford M.D. Results Test Description Test Time Test Comments Results Result Comments Source Glucose [Mass/volume] in Capillary blood 2022-08-23 14:41:24 Test Item Value Reference Range Interpretation Comme nts Blood Glucose: mg/dl (test code = Blood Glucose: mg/dl) 205 [facility] [id number] 14:41:12 Test Item Value Reference Range Interpretation Comments Hemoglobin A1c/Hemoglobin.total in 7.8 % 4.0-6.4 Blood (test code = 4548-4) [facility] [id number] 10:01:17 Test Item Value Reference Range Interpretation Comments Hemoglobin A1c/Hemoglobin.total in 7.3 % 5.7-6.4 Blood (test code = 4548-4) [facility] [Mass/volume] in Capillary [id number] 10:01:05 Test Item Value Reference Range Interpretation Comments Blood Glucose: mg/dl (test code = Blood 111 Glucose: mg/dl) [facility] [id number] 08:53:03 Test Item Value Reference Range Interpretation Comments Hemoglobin A1c/Hemoglobin.total in 7.5 % 5.7-6.4 Blood (test code = 4548-4) [facility] PracticeGlucose [Mass/volume] in Capillary [id number] 08:52:52 Test Item Value Reference Range Interpretation Comments Blood Glucose: mg/dl (test code = Blood 133 Glucose: mg/dl) [facility] [id number] 14:50:50 Test Item Value Reference Range Interpretation Comments Hemoglobin A1C Fingerstick: (test code 8.4 = Hemoglobin A1C Fingerstick:) [facility] [[facility]/volume] in Capillary [id number] 14:50:41 Test Item Value Reference Range Interpretation Comments Blood Glucose: mg/dl (test code = Blood 213 Glucose: mg/dl) [facility] [id number] 12:02:40 Test Item Value Reference Range Interpretation Comments Hemoglobin A1C Fingerstick: (test code 8.6 = Hemoglobin A1C Fingerstick:) [facility]illary [id number] 12:02:31 Test Item Value Reference Range Interpretation Comments Blood Glucose: mg/dl (test code = Blood 177 Glucose: mg/dl) [facility] PracticeDEXA PERIPHERAL (FOREARM)2019-06-20 17:35:09 Osteoporosis based on the lumbar spine measurements. EXAM: DEXA ? ? DEXA AXIAL (HIP AND SPINE), DEXA PERIPHERAL (FOREARM) HISTORY: Male 53 years Low BMD Cirilo Judi is a 53 year old male onAlendronate for past 2 years,Is here to do the BMD,Please evaluate the b/lhip,Lumbar spine .Thanks! COMPARISON:?None TECHNIQUE: Bone densitometry of the lumbar spine and hips was performed on a GEsystem. ? WHO-definitions ?T score ?normal ? T >/= - 1 SD around the mean ?osteopenia ?-1 > T > -2.5 SD below the mean ? ? osteoporosis ? ? ? T >/= -2.5 SD below the mean ? Fracture risk doubles for each 1.5 SDbelow the mean. ? FINDINGS: 1. Lumbar spine L1-L4: T value -2.7. ?Bone mineral density of 0.905g/cm^2. 2. Left Hip: T value -1.3. ?Bone mineral density of 0.921 g/cm^2. Left Neck: T value -1.4. ?Bone mineral density of 0.889 g/cm^2. 3. Right Hip: T value -0.8. ?Bone mineral density of 0.988 g/cm^2. Right Neck: T value -0.9. ?Bone mineral density of 0.957 g/cm^2. 4. Left Forearm (33% Radius): T value -0.1. ?Bone mineral density of 0.982g/cm^2 . 4. Right Forearm (33% Radius): T value 0.2. ?Bone mineral density of 1.013g/cm^2. [facility], Radiant Results Inft User - 06/20/2019 11:36 AM CSTEXAM: DEXA DEXA AXIAL (HIP AND SPINE), DEXA PERIPHERAL (FOREARM)HISTORY: Male 53 years Low BMD Ciriloade Soto is a 53 year old male onAlendronate for past 2 years,Is here to do the BMD,Please evaluate the b/lhip,Lumbar spine .Thanks!COMPARISON: NoneTECHNIQUE: Bonedensitometry of the lumbar spine and hips was performed on a [employer]. WHO-definitions T score normal T >/= - 1 SD around the mean osteopenia -1 > T> -2.5 SD below the mean osteoporosis T >/= -2.5 SD below the mean Fracture risk doubles for each 1.5 SD below the mean. FINDINGS:1. Lumbar spine L1-L4: T value -2.7. Bone mineral density of 0.905g/cm^2. 2. Left Hip: T value -1.3. Bone mineral densityof 0.921 g/cm^2.Left Neck: T value -1.4. Bone mineral density of 0.889 g/cm^2. 3. Right Hip: T value -0.8. Bone mineral density of 0.988 g/cm^2. Right Neck: T value -0.9. Bone mineral density of 0.957 g/cm^2. 4. Left Forearm (33% Radius): T value -0.1. Bone mineral density of 0.982g/cm^2. 4. Right Forearm (33% Radius): T value 0.2. Bone mineral density of 1.013g/cm^2. IMPRESSIONOsteoporosis based on the lumbar spine measurements.[facility] 2019-06-20 17:35:09 Osteoporosis based on the lumbar spine measurements. EXAM: DEXA ? ? DEXA AXIAL (HIP AND SPINE), DEXA PERIPHERAL (FOREARM) HISTORY: Male 53 years Low BMD Cirilo Soto is a 53 year old male onAlendronate for past 2 years,Is here to do the BMD,Please evaluate the b/lhip,Lumbar spine .Thanks! COMPARISON:?None TECHNIQUE: Bone densitometry of the lumbar spine and hips was performed on a [employer]system. ? WHO-definitions ?T score ?normal ? T >/= - 1 SD around the mean ?osteopenia ?-1 > T > -2.5 SD below the mean ? ? osteoporosis ? ? ? T >/= -2.5 SD below the mean ? Fracture risk doubles for each 1.5 SDbelow the mean. ? FINDINGS: 1. Lumbar spine L1-L4: T value -2.7. ?Bone mineral density of 0.905g/cm^2. 2. Left Hip: T value -1.3. ?Bone mineral density of 0.921 g/cm^2. Left Neck: T value -1.4. ?Bone mineral density of 0.889 g/cm^2. 3. Right Hip: T value -0.8. ?Bone mineral density of 0.988 g/cm^2. Right Neck: T value -0.9. ?Bone mineral density of 0.957 g/cm^2. 4. Left Forearm (33% Radius): T value -0.1. ?Bone mineral density of 0.982g/cm^2 . 4. Right Forearm (33% Radius): T value 0.2. ?Bone mineral density of 1.013g/cm^2. [facility], Radiant Results Inft User - 06/20/2019 11:36 AM CSTEXAM: DEXA DEXA AXIAL (HIP AND SPINE), DEXA PERIPHERAL (FOREARM)HISTORY: Male 53 years Low BMD Ciriloade Soto is a 53 year old male onAlendronate for past 2 years,Is here to do the BMD,Please evaluate the b/lhip,Lumbar spine .Thanks!COMPARISON: NoneTECHNIQUE: Bonedensitometry of the lumbar spine and hips was performed on a [employer]. WHO-definitions T score normal T >/= - 1 SD around the mean osteopenia -1 > T> -2.5 SD below the mean osteoporosis T >/= -2.5 SD below the mean Fracture risk doubles for each 1.5 SD below the mean. FINDINGS:1. Lumbar spine L1-L4: T value -2.7. Bone mineral density of 0.905g/cm^2. 2. Left Hip: T value -1.3. Bone mineral densityof 0.921 g/cm^2.Left Neck: T value -1.4. Bone mineral density of 0.889 g/cm^2. 3. Right Hip: T value -0.8. Bone mineral density of 0.988 g/cm^2. Right Neck: T value -0.9. Bone mineral density of 0.957 g/cm^2. 4. Left Forearm (33% Radius): T value -0.1. Bone mineral density of 0.982g/cm^2. 4. Right Forearm (33% Radius): T value 0.2. Bone mineral density of 1.013g/cm^2. IMPRESSIONOsteoporosis based on the lumbar spine measurements.[facility] 2 [id number] 03:07:16No evidence of acute cardiopulmonary disease.2 VIEWS OF THE CHEST HISTORY: produtive cough and low O2 stat with decrease breath sounds onleft COMPARISON: none TECHNIQUE: PA and lateral views of the chest. FINDINGS: Calcified right upper lobe granuloma. Otherwise, the lungs are clear. Thereis no focal consolidation, pleural effusion or pneumothorax. The cardiomediastinal silhouette is within normal limits. ?No acute bonyabnormalities are seen. Interval placement of electronic device embedded within the subcutaneoustissues of the lower back. [facility], Radiant Results Inft User - 06/09/2019 9:08 PM CST2 EWS OF THE CHESTHISTORY: produtive cough and low O2 stat with decrease breath sounds onleft COMPARISON: noneTECHNIQUE: PA and lateral views of the chest.FINDINGS:Calcified right upper lobe granuloma. Otherwise, the lungs are clear. Thereis no focal consolidation, pleural effusion or pneumothorax.The ca rdiomediastinal silhouette is within normal limits. No acute bonyabnormalities are seen.Interval placement of electronic device embedded within the subcutaneoustissues of the lower back.IMPRESSIONNo evidence of acute cardiopulmonary disease.[facility] ([facility]LEC[facility])2019-06-10 02:04:00 Test Item Value Reference Range Interpretation Comments POCT INFLUENZA A (test Positive Negative - A code = 3840) Negative POCT INFLUENZA B (test n/a Negative - code = 3841) Negative GREGORIO (test code = GREGORIO) accurate development and interpretation of all internal controls Lab Interpretation Abnormal (test code = 63920-3) [facility]2017-08-16 12:07:00 Test Item Value Reference Range Interpretation Comments eGFR (test code = eGFR) 102 [facility]2017-08-16 12:07:00 Test Item Value Reference Range Interpretation Comments Bili Total (test code = Bili Total) 2.1 0.2-1.3 [facility]2017-08-16 12:07:00 Test Item Value Reference Range Interpretation Comments A/G Ratio (test code = A/G Ratio) 0.9 0.7-1.6 [facility]2017-08-16 12:07:00 Test Item Value Reference Range Interpretation Comments Alk Phos (test code = Alk Phos) 77 39-136 [facility]2017-08-16 12:07:00 Test Item Value Reference Range Interpretation Comments AST (test code = AST) 39 See_Comment [Auto mated message] The system which ge nerated this result transmit nicole reference range : <=37. The reference range was not used to interpr et this result as kira l/abnormal. [facility]2017-08-16 12:07:00 Test Item Value Reference Range Interpretation Comments ALT (test code = ALT) 52 See_Comment [Auto mated message] The system which ge nerated this result transmit nicole reference range : <=65. The reference range was not used to interpr et this result as kira l/abnormal. [facility]2017-08-16 12:07:00 Test Item Value Reference Range Interpretation Comments Albumin Lvl (test code = Albumin Lvl) 3.1 3.5-5.0 [facility]2017-08-16 12:07:00 Test Item Value Reference Range Interpretation Comments Globulin (test code = Globulin) 3.6 2.7-4.2 [facility]2017-08-16 12:07:00 Test Item Value Reference Range Interpretation Comments Total Protein (test code = Total 6.7 6.4-8.4 Protein) [facility]2017-08-16 12:07:00 Test Item Value Reference Range Interpretation Comments B/C Ratio (test code = B/C Ratio) 16 6-25 [place] [id number] 12:07:00 Test Item Value Reference Range Interpretation Comments AGAP (test code = AGAP) 11.9 10.0-20.0 [facility]2017-08-16 12:07:00 Test Item Value Reference Range Interpretation Comments Potassium Lvl (test code = Potassium 3.9 3.5-5.1 Lvl) [facility]2017-08-16 12:07:00 Test Item Value Reference Range Interpretation Comments CO2 (test code = CO2) 27 24-32 [facility]2017-08-16 12:07:00 Test Item Value Reference Range Interpretation Comments Calcium Lvl (test code = Calcium Lvl) 8.3 8.5-10.5 [facility]2017-08-16 12:07:00 Test Item Value Reference Range Interpretation Comments Glucose Lvl (test code = Glucose Lvl) 262 70-99 [facility]2017-08-16 12:07:00 Test Item Value Reference Range Interpretation Comments BUN (test code = BUN) 13 7-22 [facility]2017-08-16 12:07:00 Test Item Value Reference Range Interpretation Comments Chloride Lvl (test code = Chloride Lvl) 99 95-109 [facility]2017-08-16 12:07:00 Test Item Value Reference Range Interpretation Comments Sodium Lvl (test code = Sodium Lvl) 134 135-145 [facility]2017-08-16 12:07:00 Test Item Value Reference Range Interpretation Comments Creatinine Lvl (test code = Creatinine 0.83 0.50-1.40 Lvl) [facility]dxqolcTUVJYBTESD4847-22-04 12:07:00 Test Item Value Reference Range Interpretation Comments MPV (test code = MPV) 8.1 7.4-10.4 [facility] HospitalHangzbaKIFIBPEKEN1603-96-18 12:07:00 Test Item Value Reference Range Interpretation Comments Platelet (test code = Platelet) 159 133-450 [facility] HospitalQiejgqrCTZMIJGWWQ1565-35-75 12:07:00 Test Item Value Reference Range Interpretation Comments RDW (test code = RDW) 13.7 11.5-14.5 [facility] HospitalQsutphoULOFGSAZGY9743-80-09 12:07:00 Test Item Value Reference Range Interpretation Comments RBC (test code = RBC) 4.17 4.70-6.10 [facility] HospitalFfyhpiuFOCBZNAFOA0615-19-98 12:07:00 Test Item Value Reference Range Interpretation Comments WBC (test code = WBC) 10.2 3.7-10.4 [facility] HospitalVoxlasxDNFRDLIWSZ4196-65-26 12:07:00 Test Item Value Reference Range Interpretation Comments Hgb (test code = Hgb) 13.1 14.0-18.0 [facility] HospitalFsmqgbdGDUDVEPCYR6530-85-09 12:07:00 Test Item Value Reference Range Interpretation Comments MCHC (test code = MCHC) 34.9 32.0-36.0 [facility] HospitalPofkccgMZMJAZDPZP3207-88-91 12:07:00 Test Item Value Reference Range Interpretation Comments MCH (test code = MCH) 31.5 pg 27.0-31.0 [facility] HospitalSzgzfnkCPKITITXBO5461-72-68 12:07:00 Test Item Value Reference Range Interpretation Comments MCV (test code = MCV) 90.2 80.0-94.0 [facility] HospitalDkbutieMDWYCVUHOD8683-92-99 12:07:00 Test Item Value Reference Range Interpretation Comments Hct (test code = Hct) 37.6 42.0-54.0 [facility] HospitalXihofasMCRFTDQTIW4947-65-06 12:07:00 Test Item Value Reference Range Interpretation Comments Segs-Bands # (test code = Segs-Bands #) 7.0 1.5-8.1 [facility] HospitalObblkwzFGFIPHBKTM3274-06-32 12:07:00 Test Item Value Reference Range Interpretation Comments Lymphocytes # (test code = Lymphocytes 1.9 1.0-5.5 #) [facility] HospitalQpnxnsrJQSCNOZZCX6986-10-62 12:07:00 Test Item Value Reference Range Interpretation Comments Monocytes # (test code 1.2 See_Comment [Aut omated message] The = Monocytes #) system which generated this result tra nsmitted reference range : <=0.8. The reference r romulo was not used to int erpret this result as normal/abnormal . [facility] HospitalOrtwgftNAOYKGNJTP7393-96-84 12:07:00 Test Item Value Reference Range Interpretation Comments Eosinophils # (test code 0.1 See_Comment [A utomated message] The = Eosinophils #) system whic h generated this result tra nsmitted reference range : <=0.5. The reference r romulo was not used to int erpret this result as normal/abnormal . [facility] HospitalKngvizoZMKMKSMGMJ1145-09-93 12:07:00 Test Item Value Reference Range Interpretation Comments Basophils (test code = 0.3 See_Comment [Aut omated message] The Basophils) system which ge nerated this result tra nsmitted reference range : <=1.0. The reference r romulo was not used to int erpret this result as normal/abnormal . [facility] HospitalOaubeqzYSKRLKQRDQ3058-79-33 12:07:00 Test Item Value Reference Range Interpretation Comments Eosinophils (test code = 0.6 See_Comment [A utomated message] The Eosinophils) system which ge nerated this result tra nsmitted reference range : <=4.0. The reference r romulo was not used to int erpret this result as normal/abnormal . [facility] HospitalGpcrytmNASVHEGXSZ7231-18-58 12:07:00 Test Item Value Reference Range Interpretation Comments Monocytes (test code = Monocytes) 12.2 2.0-12.0 [facility] HospitalJvhgptjLEXDSFLQXL6049-50-82 12:07:00 Test Item Value Reference Range Interpretation Comments Lymphocytes (test code = Lymphocytes) 18.4 20.0-40.0 [facility] HospitalXmmryquWIYEZLUAPB7174-83-43 12:07:00 Test Item Value Reference Range Interpretation Comments Segs (test code = Segs) 68.5 45.0-75.0 [facility]2017-08-16 12:07:00 Test Item Value Reference Range Interpretation Comments eGFR (test code = eGFR) 102 [facility]2017-08-16 12:07:00 Test Item Value Reference Range Interpretation Comments Bili Total (test code = Bili Total) 2.1 0.2-1.3 [facility]2017-08-16 12:07:00 Test Item Value Reference Range Interpretation Comments A/G Ratio (test code = A/G Ratio) 0.9 0.7-1.6 [facility]2017-08-16 12:07:00 Test Item Value Reference Range Interpretation Comments Alk Phos (test code = Alk Phos) 77 39-136 [facility]2017-08-16 12:07:00 Test Item Value Reference Range Interpretation Comments AST (test code = AST) 39 See_Comment [Auto mated message] The system which ge nerated this result transmit nicole reference range : <=37. The reference range was not used to interpr et this result as kira l/abnormal. [facility]2017-08-16 12:07:00 Test Item Value Reference Range Interpretation Comments ALT (test code = ALT) 52 See_Comment [Auto mated message] The system which ge nerated this result transmit nicole reference range : <=65. The reference range was not used to interpr et this result as kira l/abnormal. [facility]2017-08-16 12:07:00 Test Item Value Reference Range Interpretation Comments Albumin Lvl (test code = Albumin Lvl) 3.1 3.5-5.0 [facility]2017-08-16 12:07:00 Test Item Value Reference Range Interpretation Comments Globulin (test code = Globulin) 3.6 2.7-4.2 [facility]2017-08-16 12:07:00 Test Item Value Reference Range Interpretation Comments Total Protein (test code = Total 6.7 6.4-8.4 Protein) [facility]2017-08-16 12:07:00 Test Item Value Reference Range Interpretation Comments B/C Ratio (test code = B/C Ratio) 16 6-25 [facility]2017-08-16 12:07:00 Test Item Value Reference Range Interpretation Comments AGAP (test code = AGAP) 11.9 10.0-20.0 [facility]2017-08-16 12:07:00 Test Item Value Reference Range Interpretation Comments Potassium Lvl (test code = Potassium 3.9 3.5-5.1 Lvl) [facility]2017-08-16 12:07:00 Test Item Value Reference Range Interpretation Comments CO2 (test code = CO2) 27 24-32 [facility]2017-08-16 12:07:00 Test Item Value Reference Range Interpretation Comments Calcium Lvl (test code = Calcium Lvl) 8.3 8.5-10.5 [facility]2017-08-16 12:07:00 Test Item Value Reference Range Interpretation Comments Glucose Lvl (test code = Glucose Lvl) 262 70-99 [facility]2017-08-16 12:07:00 Test Item Value Reference Range Interpretation Comments BUN (test code = BUN) 13 7-22 [facility]2017-08-16 12:07:00 Test Item Value Reference Range Interpretation Comments Chloride Lvl (test code = Chloride Lvl) 99 95-109 [facility]2017-08-16 12:07:00 Test Item Value Reference Range Interpretation Comments Sodium Lvl (test code = Sodium Lvl) 134 135-145 [facility]2017-08-16 12:07:00 Test Item Value Reference Range Interpretation Comments Creatinine Lvl (test code = Creatinine 0.83 0.50-1.40 Lvl) [facility] HospitalZulgrtvGZWTIUDJDR3135-21-18 12:07:00 Test Item Value Reference Range Interpretation Comments MPV (test code = MPV) 8.1 7.4-10.4 [facility] HospitalMddzfygLOHMFMNQSD3950-23-44 12:07:00 Test Item Value Reference Range Interpretation Comments Platelet (test code = Platelet) 159 133-450 [facility] HospitalHohtwrnEPBPCTZHGE1343-11-91 12:07:00 Test Item Value Reference Range Interpretation Comments RDW (test code = RDW) 13.7 11.5-14.5 [facility] HospitalXhtvyzwIPZLHJYESR5251-90-41 12:07:00 Test Item Value Reference Range Interpretation Comments RBC (test code = RBC) 4.17 4.70-6.10 [facility] HospitalXikzpdrDUQOTKKQQA3927-14-57 12:07:00 Test Item Value Reference Range Interpretation Comments WBC (test code = WBC) 10.2 3.7-10.4 [facility] HospitalWealjajBTCLGBNGZC5932-56-76 12:07:00 Test Item Value Reference Range Interpretation Comments Hgb (test code = Hgb) 13.1 14.0-18.0 [facility] HospitalFgfafnnIDMTJAJMJE7025-10-51 12:07:00 Test Item Value Reference Range Interpretation Comments MCHC (test code = MCHC) 34.9 32.0-36.0 [facility] HospitalPqzlvkvBMOTWZJTKU4703-98-95 12:07:00 Test Item Value Reference Range Interpretation Comments MCH (test code = MCH) 31.5 pg 27.0-31.0 [facility] HospitalAruowidOLQIKRMJKZ5253-18-64 12:07:00 Test Item Value Reference Range Interpretation Comments MCV (test code = MCV) 90.2 80.0-94.0 [facility] HospitalUzhosdsTTYPNNXWED5816-65-16 12:07:00 Test Item Value Reference Range Interpretation Comments Hct (test code = Hct) 37.6 42.0-54.0 [facility] HospitalVyaegriQLPLZAUKDN3212-88-78 12:07:00 Test Item Value Reference Range Interpretation Comments Segs-Bands # (test code = Segs-Bands #) 7.0 1.5-8.1 [facility] HospitalMkydsycQRQFXHZHGQ0352-14-39 12:07:00 Test Item Value Reference Range Interpretation Comments Lymphocytes # (test code = Lymphocytes 1.9 1.0-5.5 #) [facility] HospitalVeykcaxRCLGZEMPTP5744-21-45 12:07:00 Test Item Value Reference Range Interpretation Comments Monocytes # (test code 1.2 See_Comment [Aut omated message] The = Monocytes #) system which generated this result tra nsmitted reference range : <=0.8. The reference r romulo was not used to int erpret this result as normal/abnormal . [facility] HospitalDrjzbnlWOHTPCTQEQ9446-72-45 12:07:00 Test Item Value Reference Range Interpretation Comments Eosinophils # (test code 0.1 See_Comment [A utomated message] The = Eosinophils #) system wh h generated this result tra nsmitted reference range : <=0.5. The reference r romulo was not used to int erpret this result as normal/abnormal . [facility] HospitalKsrirksUUPOCSNCIK7622-14-90 12:07:00 Test Item Value Reference Range Interpretation Comments Basophils (test code = 0.3 See_Comment [Aut omated message] The Basophils) system which ge nerated this result tra nsmitted reference range : <=1.0. The reference r romulo was not used to int erpret this result as normal/abnormal . [facility] HospitalBhycokqHULAVLKJBA2919-60-63 12:07:00 Test Item Value Reference Range Interpretation Comments Eosinophils (test code = 0.6 See_Comment [A utomated message] The Eosinophils) system which ge nerated this result tra nsmitted reference range : <=4.0. The reference r romulo was not used to int erpret this result as normal/abnormal . [facility] HospitalZyyzcivSUBUTVGLQA5723-58-38 12:07:00 Test Item Value Reference Range Interpretation Comments Monocytes (test code = Monocytes) 12.2 2.0-12.0 [facility] HospitalUecteuhWNWIOKHOSQ5013-58-61 12:07:00 Test Item Value Reference Range Interpretation Comments Lymphocytes (test code = Lymphocytes) 18.4 20.0-40.0 [facility] HospitalOptpnpkOKPJTKDMJV8235-04-82 12:07:00 Test Item Value Reference Range Interpretation Comments Segs (test code = Segs) 68.5 45.0-75.0 [facility]2017-08-16 12:07:00 Test Item Value Reference Range Interpretation Comments eGFR (test code = eGFR) 102 [facility]2017-08-16 12:07:00 Test Item Value Reference Range Interpretation Comments Bili Total (test code = Bili Total) 2.1 0.2-1.3 [facility]2017-08-16 12:07:00 Test Item Value Reference Range Interpretation Comments A/G Ratio (test code = A/G Ratio) 0.9 0.7-1.6 [facility]2017-08-16 12:07:00 Test Item Value Reference Range Interpretation Comments Alk Phos (test code = Alk Phos) 77 39-136 [facility]2017-08-16 12:07:00 Test Item Value Reference Range Interpretation Comments eGFR (test code = eGFR) 102 [facility]2017-08-16 12:07:00 Test Item Value Reference Range Interpretation Comments Bili Total (test code = Bili Total) 2.1 0.2-1.3 [facility]2017-08-16 12:07:00 Test Item Value Reference Range Interpretation Comments A/G Ratio (test code = A/G Ratio) 0.9 0.7-1.6 [facility]2017-08-16 12:07:00 Test Item Value Reference Range Interpretation Comments AST (test code = AST) 39 See_Comment [Auto mated message] The system which ge nerated this result transmit nicole reference range : <=37. The reference range was not used to interpr et this result as kira l/abnormal. [facility]2017-08-16 12:07:00 Test Item Value Reference Range Interpretation Comments Alk Phos (test code = Alk Phos) 77 39-136 [facility]2017-08-16 12:07:00 Test Item Value Reference Range Interpretation Comments AST (test code = AST) 39 See_Comment [Auto mated message] The system which ge nerated this result transmit nicole reference range : <=37. The reference range was not used to interpr et this result as kira l/abnormal. [facility]2017-08-16 12:07:00 Test Item Value Reference Range Interpretation Comments ALT (test code = ALT) 52 See_Comment [Auto mated message] The system which ge nerated this result transmit nicole reference range : <=65. The reference range was not used to interpr et this result as kira l/abnormal. [facility]2017-08-16 12:07:00 Test Item Value Reference Range Interpretation Comments Albumin Lvl (test code = Albumin Lvl) 3.1 3.5-5.0 [facility]2017-08-16 12:07:00 Test Item Value Reference Range Interpretation Comments Globulin (test code = Globulin) 3.6 2.7-4.2 [facility]2017-08-16 12:07:00 Test Item Value Reference Range Interpretation Comments Total Protein (test code = Total 6.7 6.4-8.4 Protein) [facility]2017-08-16 12:07:00 Test Item Value Reference Range Interpretation Comments B/C Ratio (test code = B/C Ratio) 16 6-25 [facility]2017-08-16 12:07:00 Test Item Value Reference Range Interpretation Comments AGAP (test code = AGAP) 11.9 10.0-20.0 [facility]2017-08-16 12:07:00 Test Item Value Reference Range Interpretation Comments Potassium Lvl (test code = Potassium 3.9 3.5-5.1 Lvl) [facility]2017-08-16 12:07:00 Test Item Value Reference Range Interpretation Comments CO2 (test code = CO2) 27 24-32 [facility]2017-08-16 12:07:00 Test Item Value Reference Range Interpretation Comments ALT (test code = ALT) 52 See_Comment [Auto mated message] The system which ge nerated this result transmit nicole reference range : <=65. The reference range was not used to interpr et this result as kira l/abnormal. [facility]2017-08-16 12:07:00 Test Item Value Reference Range Interpretation Comments Calcium Lvl (test code = Calcium Lvl) 8.3 8.5-10.5 [facility]2017-08-16 12:07:00 Test Item Value Reference Range Interpretation Comments Glucose Lvl (test code = Glucose Lvl) 262 70-99 [facility]2017-08-16 12:07:00 Test Item Value Reference Range Interpretation Comments BUN (test code = BUN) 13 7-22 [facility]2017-08-16 12:07:00 Test Item Value Reference Range Interpretation Comments Chloride Lvl (test code = Chloride Lvl) 99 95-109 [facility]2017-08-16 12:07:00 Test Item Value Reference Range Interpretation Comments Sodium Lvl (test code = Sodium Lvl) 134 135-145 [facility]2017-08-16 12:07:00 Test Item Value Reference Range Interpretation Comments Creatinine Lvl (test code = Creatinine 0.83 0.50-1.40 Lvl) [facility]TpwjaanJFQKIEYHHU4506-54-22 12:07:00 Test Item Value Reference Range Interpretation Comments MPV (test code = MPV) 8.1 7.4-10.4 [facility]PxuakcaANUJMLELKQ9978-17-35 12:07:00 Test Item Value Reference Range Interpretation Comments Platelet (test code = Platelet) 159 133-450 [facility] HospitalMvikohiTIYBLJHHGU2289-38-87 12:07:00 Test Item Value Reference Range Interpretation Comments RDW (test code = RDW) 13.7 11.5-14.5 [facility] HospitalLolldyaQTHPCUQYDC8376-62-26 12:07:00 Test Item Value Reference Range Interpretation Comments RBC (test code = RBC) 4.17 4.70-6.10 [facility]2017-08-16 12:07:00 Test Item Value Reference Range Interpretation Comments Albumin Lvl (test code = Albumin Lvl) 3.1 3.5-5.0 [facility] HospitalPxoxgcqCGDYHXSISP6194-30-11 12:07:00 Test Item Value Reference Range Interpretation Comments WBC (test code = WBC) 10.2 3.7-10.4 [facility] HospitalJmymndxRIGPNRYUPP9666-66-46 12:07:00 Test Item Value Reference Range Interpretation Comments Hgb (test code = Hgb) 13.1 14.0-18.0 [facility] HospitalSzuwypyVBOKBWZKNQ5222-49-84 12:07:00 Test Item Value Reference Range Interpretation Comments MCHC (test code = MCHC) 34.9 32.0-36.0 [facility]TpxtdaoDNXKAHEPEJ8561-11-01 12:07:00 Test Item Value Reference Range Interpretation Comments MCH (test code = MCH) 31.5 pg 27.0-31.0 [facility] HospitalFhzposoBRFOHXKEMR0867-39-73 12:07:00 Test Item Value Reference Range Interpretation Comments MCV (test code = MCV) 90.2 80.0-94.0 [facility] HospitalMeutbasUAPSLEUKMI9107-55-19 12:07:00 Test Item Value Reference Range Interpretation Comments Hct (test code = Hct) 37.6 42.0-54.0 [facility] HospitalKgkumjsMHVYNVBMFM9859-98-86 12:07:00 Test Item Value Reference Range Interpretation Comments Segs-Bands # (test code = Segs-Bands #) 7.0 1.5-8.1 [facility] HospitalDxfyjjtAFLHTKFMLH4268-79-91 12:07:00 Test Item Value Reference Range Interpretation Comments Lymphocytes # (test code = Lymphocytes 1.9 1.0-5.5 #) [facility] HospitalOpfwwtbZEBCAKLGQH4515-31-16 12:07:00 Test Item Value Reference Range Interpretation Comments Monocytes # (test code 1.2 See_Comment [Aut omated message] The = Monocytes #) system which generated this result tra nsmitted reference range : <=0.8. The reference r romulo was not used to int erpret this result as normal/abnormal . [facility] HospitalCiqomebRZUCOUCOIO0035-99-69 12:07:00 Test Item Value Reference Range Interpretation Comments Eosinophils # (test code 0.1 See_Comment [A utomated message] The = Eosinophils #) system whic h generated this result tra nsmitted reference range : <=0.5. The reference r romulo was not used to int erpret this result as normal/abnormal . [facility]OCSX7372-59-05 12:07:00 Test Item Value Reference Range Interpretation Comments Globulin (test code = Globulin) 3.6 2.7-4.2 [facility] HospitalXygevaoVTLIFJNYHH7704-69-26 12:07:00 Test Item Value Reference Range Interpretation Comments Basophils (test code = 0.3 See_Comment [Aut omated message] The Basophils) system which ge nerated this result tra nsmitted reference range : <=1.0. The reference r romulo was not used to int erpret this result as normal/abnormal . [facility] HospitalXmrqsbpRUBWQIIMBV6108-79-07 12:07:00 Test Item Value Reference Range Interpretation Comments Eosinophils (test code = 0.6 See_Comment [A utomated message] The Eosinophils) system which ge nerated this result tra nsmitted reference range : <=4.0. The reference r romulo was not used to int erpret this result as normal/abnormal . [facility] HospitalInschdwLBUPNPNPUR0859-37-69 12:07:00 Test Item Value Reference Range Interpretation Comments Monocytes (test code = Monocytes) 12.2 2.0-12.0 [facility] HospitalGlkopjmNIMHKIEUVB1183-01-03 12:07:00 Test Item Value Reference Range Interpretation Comments Lymphocytes (test code = Lymphocytes) 18.4 20.0-40.0 [facility] HospitalAfhbztpELFCWHBGBM7228-40-05 12:07:00 Test Item Value Reference Range Interpretation Comments Segs (test code = Segs) 68.5 45.0-75.0 [facility]2017-08-16 12:07:00 Test Item Value Reference Range Interpretation Comments Total Protein (test code = Total 6.7 6.4-8.4 Protein) [facility]2017-08-16 12:07:00 Test Item Value Reference Range Interpretation Comments B/C Ratio (test code = B/C Ratio) 16 6-25 [facility]2017-08-16 12:07:00 Test Item Value Reference Range Interpretation Comments AGAP (test code = AGAP) 11.9 10.0-20.0 [facility]2017-08-16 12:07:00 Test Item Value Reference Range Interpretation Comments Potassium Lvl (test code = Potassium 3.9 3.5-5.1 Lvl) [facility]2017-08-16 12:07:00 Test Item Value Reference Range Interpretation Comments CO2 (test code = CO2) 27 24-32 [facility]2017-08-16 12:07:00 Test Item Value Reference Range Interpretation Comments Calcium Lvl (test code = Calcium Lvl) 8.3 8.5-10.5 [facility]2017-08-16 12:07:00 Test Item Value Reference Range Interpretation Comments Glucose Lvl (test code = Glucose Lvl) 262 70-99 [facility]2017-08-16 12:07:00 Test Item Value Reference Range Interpretation Comments BUN (test code = BUN) 13 7-22 [facility]2017-08-16 12:07:00 Test Item Value Reference Range Interpretation Comments Chloride Lvl (test code = Chloride Lvl) 99 95-109 [facility]2017-08-16 12:07:00 Test Item Value Reference Range Interpretation Comments Sodium Lvl (test code = Sodium Lvl) 134 135-145 [facility]2017-08-16 12:07:00 Test Item Value Reference Range Interpretation Comments Creatinine Lvl (test code = Creatinine 0.83 0.50-1.40 Lvl) [facility] HospitalJtyazbkQBZSRJMTFR5460-04-19 12:07:00 Test Item Value Reference Range Interpretation Comments MPV (test code = MPV) 8.1 7.4-10.4 [facility] HospitalApavzmiKIOYSGVVBR9162-12-80 12:07:00 Test Item Value Reference Range Interpretation Comments Platelet (test code = Platelet) 159 133-450 [facility] HospitalQvopptiHXNJZEJJBS2732-79-28 12:07:00 Test Item Value Reference Range Interpretation Comments RDW (test code = RDW) 13.7 11.5-14.5 [facility] HospitalYpsbufzZFYVWTKJKO8428-50-41 12:07:00 Test Item Value Reference Range Interpretation Comments RBC (test code = RBC) 4.17 4.70-6.10 [facility] HospitalRrcpkdcXKBSZHJPGT1867-09-36 12:07:00 Test Item Value Reference Range Interpretation Comments WBC (test code = WBC) 10.2 3.7-10.4 [facility] HospitalRtsgjqdBROVOGASTP0075-90-38 12:07:00 Test Item Value Reference Range Interpretation Comments Hgb (test code = Hgb) 13.1 14.0-18.0 [facility] HospitalFsuaejsBSTUEXTBFW9153-34-97 12:07:00 Test Item Value Reference Range Interpretation Comments MCHC (test code = MCHC) 34.9 32.0-36.0 [facility] HospitalGzrrfjvXBLYCBFIXD1315-58-97 12:07:00 Test Item Value Reference Range Interpretation Comments MCH (test code = MCH) 31.5 pg 27.0-31.0 [facility]2017-08-16 12:07:00 Test Item Value Reference Range Interpretation Comments eGFR (test code = eGFR) 102 [facility]2017-08-16 12:07:00 Test Item Value Reference Range Interpretation Comments Bili Total (test code = Bili Total) 2.1 0.2-1.3 [facility]2017-08-16 12:07:00 Test Item Value Reference Range Interpretation Comments A/G Ratio (test code = A/G Ratio) 0.9 0.7-1.6 [facility]2017-08-16 12:07:00 Test Item Value Reference Range Interpretation Comments Alk Phos (test code = Alk Phos) 77 39-136 [facility]2017-08-16 12:07:00 Test Item Value Reference Range Interpretation Comments AST (test code = AST) 39 See_Comment [Auto mated message] The system which ge nerated this result transmit nicole reference range : <=37. The reference range was not used to interpr et this result as kira l/abnormal. [facility]2017-08-16 12:07:00 Test Item Value Reference Range Interpretation Comments ALT (test code = ALT) 52 See_Comment [Auto mated message] The system which ge nerated this result transmit nicole reference range : <=65. The reference range was not used to interpr et this result as kira l/abnormal. [facility]2017-08-16 12:07:00 Test Item Value Reference Range Interpretation Comments Albumin Lvl (test code = Albumin Lvl) 3.1 3.5-5.0 [facility]2017-08-16 12:07:00 Test Item Value Reference Range Interpretation Comments Globulin (test code = Globulin) 3.6 2.7-4.2 [facility]2017-08-16 12:07:00 Test Item Value Reference Range Interpretation Comments Total Protein (test code = Total 6.7 6.4-8.4 Protein) [facility] HospitalVjmrzzpMXOYBICOMQ3241-86-67 12:07:00 Test Item Value Reference Range Interpretation Comments MCV (test code = MCV) 90.2 80.0-94.0 [facility]2017-08-16 12:07:00 Test Item Value Reference Range Interpretation Comments B/C Ratio (test code = B/C Ratio) 16 6-25 [place] 116587-08-16 12:07:00 Test Item Value Reference Range Interpretation Comments AGAP (test code = AGAP) 11.9 10.0-20.0 [facility]2017-08-16 12:07:00 Test Item Value Reference Range Interpretation Comments Potassium Lvl (test code = Potassium 3.9 3.5-5.1 Lvl) [facility]2017-08-16 12:07:00 Test Item Value Reference Range Interpretation Comments CO2 (test code = CO2) 27 24-32 [facility]2017-08-16 12:07:00 Test Item Value Reference Range Interpretation Comments Calcium Lvl (test code = Calcium Lvl) 8.3 8.5-10.5 [facility]2017-08-16 12:07:00 Test Item Value Reference Range Interpretation Comments Glucose Lvl (test code = Glucose Lvl) 262 70-99 [facility]2017-08-16 12:07:00 Test Item Value Reference Range Interpretation Comments BUN (test code = BUN) 13 7-22 [facility]2017-08-16 12:07:00 Test Item Value Reference Range Interpretation Comments Chloride Lvl (test code = Chloride Lvl) 99 95-109 [facility]2017-08-16 12:07:00 Test Item Value Reference Range Interpretation Comments Sodium Lvl (test code = Sodium Lvl) 134 135-145 [facility]2017-08-16 12:07:00 Test Item Value Reference Range Interpretation Comments Creatinine Lvl (test code = Creatinine 0.83 0.50-1.40 Lvl) [facility] HospitalGslqpexCFZZLGRQEY5721-24-73 12:07:00 Test Item Value Reference Range Interpretation Comments Hct (test code = Hct) 37.6 42.0-54.0 [facility] HospitalBwfsojuTDBQHGIZIW3636-77-14 12:07:00 Test Item Value Reference Range Interpretation Comments MPV (test code = MPV) 8.1 7.4-10.4 [facility] HospitalAmgdprmGZKZKADPCD2062-62-18 12:07:00 Test Item Value Reference Range Interpretation Comments Platelet (test code = Platelet) 159 133-450 [facility] HospitalQfufmfxWBHMVHIMLF6925-27-48 12:07:00 Test Item Value Reference Range Interpretation Comments RDW (test code = RDW) 13.7 11.5-14.5 [facility] HospitalFnrkaqcHEUZKGFXTM2558-14-41 12:07:00 Test Item Value Reference Range Interpretation Comments RBC (test code = RBC) 4.17 4.70-6.10 [facility] HospitalCkkizcoAGVHAQYXRX5387-52-07 12:07:00 Test Item Value Reference Range Interpretation Comments WBC (test code = WBC) 10.2 3.7-10.4 [facility] HospitalOynjzfhXRDGGTAGLX3349-50-00 12:07:00 Test Item Value Reference Range Interpretation Comments Hgb (test code = Hgb) 13.1 14.0-18.0 [facility] HospitalCfnqshsIKJDRMVGRX7208-52-52 12:07:00 Test Item Value Reference Range Interpretation Comments MCHC (test code = MCHC) 34.9 32.0-36.0 [facility] HospitalCqkeqrzFLMGZMAZVE4553-27-80 12:07:00 Test Item Value Reference Range Interpretation Comments MCH (test code = MCH) 31.5 pg 27.0-31.0 [facility] HospitalWzkzydaQWAAWPNONY4094-26-42 12:07:00 Test Item Value Reference Range Interpretation Comments MCV (test code = MCV) 90.2 80.0-94.0 [facility] HospitalUmqbgtrSWHXTNXNKN9617-66-19 12:07:00 Test Item Value Reference Range Interpretation Comments Hct (test code = Hct) 37.6 42.0-54.0 [facility] HospitalWhzdhkfGBLITNHOCG2632-68-52 12:07:00 Test Item Value Reference Range Interpretation Comments Segs-Bands # (test code = Segs-Bands #) 7.0 1.5-8.1 [facility] HospitalKaplugbXPRPNJRKEX3063-06-68 12:07:00 Test Item Value Reference Range Interpretation Comments Segs-Bands # (test code = Segs-Bands #) 7.0 1.5-8.1 [facility] HospitalSfqnwnzYSHBLXJYBD5380-20-21 12:07:00 Test Item Value Reference Range Interpretation Comments Lymphocytes # (test code = Lymphocytes 1.9 1.0-5.5 #) [facility] HospitalEthgtaxWIMMGSYRBG6251-30-05 12:07:00 Test Item Value Reference Range Interpretation Comments Monocytes # (test code 1.2 See_Comment [Aut omated message] The = Monocytes #) system which generated this result tra nsmitted reference range : <=0.8. The reference r romulo was not used to int erpret this result as normal/abnormal . [facility] HospitalWuyhhvlELMBPPWYJQ4855-00-79 12:07:00 Test Item Value Reference Range Interpretation Comments Eosinophils # (test code 0.1 See_Comment [A utomated message] The = Eosinophils #) system whic h generated this result tra nsmitted reference range : <=0.5. The reference r romulo was not used to int erpret this result as normal/abnormal . [facility] HospitalCygdyxoDGOFWXAZCY4162-60-05 12:07:00 Test Item Value Reference Range Interpretation Comments Basophils (test code = 0.3 See_Comment [Aut omated message] The Basophils) system which ge nerated this result tra nsmitted reference range : <=1.0. The reference r romulo was not used to int erpret this result as normal/abnormal . [facility] HospitalAotgbtiAYBGHMPPMC5403-09-05 12:07:00 Test Item Value Reference Range Interpretation Comments Eosinophils (test code = 0.6 See_Comment [A utomated message] The Eosinophils) system which ge nerated this result tra nsmitted reference range : <=4.0. The reference r romulo was not used to int erpret this result as normal/abnormal . [facility] HospitalRkcqjheAJJYDNZXFJ5236-77-60 12:07:00 Test Item Value Reference Range Interpretation Comments Monocytes (test code = Monocytes) 12.2 2.0-12.0 [facility] HospitalMznquzlJAMBCAUJAI1072-01-75 12:07:00 Test Item Value Reference Range Interpretation Comments Lymphocytes (test code = Lymphocytes) 18.4 20.0-40.0 [facility] HospitalLkkyphvPAIAMDGIRG7213-19-56 12:07:00 Test Item Value Reference Range Interpretation Comments Segs (test code = Segs) 68.5 45.0-75.0 [facility] HospitalMaihzrgILULPKGWDD8899-63-07 12:07:00 Test Item Value Reference Range Interpretation Comments Lymphocytes # (test code = Lymphocytes 1.9 1.0-5.5 #) [facility] HospitalVhfvdqrCLRHZWVVRT3340-96-67 12:07:00 Test Item Value Reference Range Interpretation Comments Monocytes # (test code 1.2 See_Comment [Aut omated message] The = Monocytes #) system which generated this result tra nsmitted reference range : <=0.8. The reference r romulo was not used to int erpret this result as normal/abnormal . [facility] HospitalPacgsqhCWQFMYYCIF5817-74-53 12:07:00 Test Item Value Reference Range Interpretation Comments Eosinophils # (test code 0.1 See_Comment [A utomated message] The = Eosinophils #) system whic h generated this result tra nsmitted reference range : <=0.5. The reference r romulo was not used to int erpret this result as normal/abnormal . [facility] HospitalQisrrchMDXFQXRBIG2194-53-50 12:07:00 Test Item Value Reference Range Interpretation Comments Basophils (test code = 0.3 See_Comment [Aut omated message] The Basophils) system which ge nerated this result tra nsmitted reference range : <=1.0. The reference r romulo was not used to int erpret this result as normal/abnormal . [facility] HospitalApwemonZVCFTRSRET2179-76-37 12:07:00 Test Item Value Reference Range Interpretation Comments Eosinophils (test code = 0.6 See_Comment [A utomated message] The Eosinophils) system which ge nerated this result tra nsmitted reference range : <=4.0. The reference r romulo was not used to int erpret this result as normal/abnormal . [facility] HospitalNsfemqdOAPYKTPMFV3402-28-32 12:07:00 Test Item Value Reference Range Interpretation Comments Monocytes (test code = Monocytes) 12.2 2.0-12.0 [facility] HospitalLoxbestNALBGDWHEH9774-20-98 12:07:00 Test Item Value Reference Range Interpretation Comments Lymphocytes (test code = Lymphocytes) 18.4 20.0-40.0 [facility] HospitalOqqjumoHEPTKFOVJY9682-98-71 12:07:00 Test Item Value Reference Range Interpretation Comments Segs (test code = Segs) 68.5 45.0-75.0 [facility]2017-08-16 12:07:00 Test Item Value Reference Range Interpretation Comments eGFR (test code = eGFR) 102 [facility]2017-08-16 12:07:00 Test Item Value Reference Range Interpretation Comments Bili Total (test code = Bili Total) 2.1 0.2-1.3 [facility]2017-08-16 12:07:00 Test Item Value Reference Range Interpretation Comments A/G Ratio (test code = A/G Ratio) 0.9 0.7-1.6 [facility]2017-08-16 12:07:00 Test Item Value Reference Range Interpretation Comments Alk Phos (test code = Alk Phos) 77 39-136 [facility]2017-08-16 12:07:00 Test Item Value Reference Range Interpretation Comments AST (test code = AST) 39 See_Comment [Auto mated message] The system which ge nerated this result transmit nicole reference range : <=37. The reference range was not used to interpr et this result as kira l/abnormal. [facility]2017-08-16 12:07:00 Test Item Value Reference Range Interpretation Comments ALT (test code = ALT) 52 See_Comment [Auto mated message] The system which ge nerated this result transmit nicole reference range : <=65. The reference range was not used to interpr et this result as kira l/abnormal. [facility]2017-08-16 12:07:00 Test Item Value Reference Range Interpretation Comments Albumin Lvl (test code = Albumin Lvl) 3.1 3.5-5.0 [facility]2017-08-16 12:07:00 Test Item Value Reference Range Interpretation Comments Globulin (test code = Globulin) 3.6 2.7-4.2 [facility]2017-08-16 12:07:00 Test Item Value Reference Range Interpretation Comments Total Protein (test code = Total 6.7 6.4-8.4 Protein) [facility]2017-08-16 12:07:00 Test Item Value Reference Range Interpretation Comments B/C Ratio (test code = B/C Ratio) 16 6-25 [facility]2017-08-16 12:07:00 Test Item Value Reference Range Interpretation Comments AGAP (test code = AGAP) 11.9 10.0-20.0 [facility]2017-08-16 12:07:00 Test Item Value Reference Range Interpretation Comments Potassium Lvl (test code = Potassium 3.9 3.5-5.1 Lvl) [facility]2017-08-16 12:07:00 Test Item Value Reference Range Interpretation Comments CO2 (test code = CO2) 27 24-32 [facility]2017-08-16 12:07:00 Test Item Value Reference Range Interpretation Comments Calcium Lvl (test code = Calcium Lvl) 8.3 8.5-10.5 [facility]2017-08-16 12:07:00 Test Item Value Reference Range Interpretation Comments Glucose Lvl (test code = Glucose Lvl) 262 70-99 [facility]2017-08-16 12:07:00 Test Item Value Reference Range Interpretation Comments BUN (test code = BUN) 13 7-22 [facility]2017-08-16 12:07:00 Test Item Value Reference Range Interpretation Comments Chloride Lvl (test code = Chloride Lvl) 99 95-109 [facility]2017-08-16 12:07:00 Test Item Value Reference Range Interpretation Comments Sodium Lvl (test code = Sodium Lvl) 134 135-145 [facility]2017-08-16 12:07:00 Test Item Value Reference Range Interpretation Comments Creatinine Lvl (test code = Creatinine 0.83 0.50-1.40 Lvl) [facility] HospitalKuekwrjLUKGLIZJXY0115-05-17 12:07:00 Test Item Value Reference Range Interpretation Comments MPV (test code = MPV) 8.1 7.4-10.4 [facility] HospitalVycitufSGJGHWRGTV3140-55-31 12:07:00 Test Item Value Reference Range Interpretation Comments Platelet (test code = Platelet) 159 133-450 [facility] HospitalOpaiutaMPVGYLPEHL0859-22-85 12:07:00 Test Item Value Reference Range Interpretation Comments RDW (test code = RDW) 13.7 11.5-14.5 [facility] HospitalKquvekaHCGXCOPZFG1750-87-04 12:07:00 Test Item Value Reference Range Interpretation Comments RBC (test code = RBC) 4.17 4.70-6.10 [facility] HospitalXivjbngOSOECETWYQ0571-82-08 12:07:00 Test Item Value Reference Range Interpretation Comments WBC (test code = WBC) 10.2 3.7-10.4 [facility] HospitalUyxvvjmXOCBMJYHAF8683-06-16 12:07:00 Test Item Value Reference Range Interpretation Comments Hgb (test code = Hgb) 13.1 14.0-18.0 [facility] HospitalVkgaenxTLDCGNBWKY6352-36-50 12:07:00 Test Item Value Reference Range Interpretation Comments MCHC (test code = MCHC) 34.9 32.0-36.0 [facility] HospitalGqrohacZGJWGSIOTL6596-22-36 12:07:00 Test Item Value Reference Range Interpretation Comments MCH (test code = MCH) 31.5 pg 27.0-31.0 [facility] HospitalUuisdshIYBLCGLHZF3523-43-34 12:07:00 Test Item Value Reference Range Interpretation Comments MCV (test code = MCV) 90.2 80.0-94.0 [facility] HospitalOvcyhloUIULDPROKR9402-23-73 12:07:00 Test Item Value Reference Range Interpretation Comments Hct (test code = Hct) 37.6 42.0-54.0 [facility] HospitalWehvvwoOYYPRIXDJV9099-02-31 12:07:00 Test Item Value Reference Range Interpretation Comments Segs-Bands # (test code = Segs-Bands #) 7.0 1.5-8.1 [facility] HospitalEusohxqQUDHOOKCRJ2942-35-16 12:07:00 Test Item Value Reference Range Interpretation Comments Lymphocytes # (test code = Lymphocytes 1.9 1.0-5.5 #) [facility] HospitalUgbjhijZRFAYTFQAZ2166-24-98 12:07:00 Test Item Value Reference Range Interpretation Comments Monocytes # (test code 1.2 See_Comment [Aut omated message] The = Monocytes #) system which generated this result tra nsmitted reference range : <=0.8. The reference r romulo was not used to int erpret this result as normal/abnormal . [facility] HospitalUljsloeRGLZSWYRZD3394-08-88 12:07:00 Test Item Value Reference Range Interpretation Comments Eosinophils # (test code 0.1 See_Comment [A utomated message] The = Eosinophils #) system whic h generated this result tra nsmitted reference range : <=0.5. The reference r romulo was not used to int erpret this result as normal/abnormal . [facility] HospitalWkaiukgGTYDCMXZPQ3115-48-08 12:07:00 Test Item Value Reference Range Interpretation Comments Basophils (test code = 0.3 See_Comment [Aut omated message] The Basophils) system which ge nerated this result tra nsmitted reference range : <=1.0. The reference r romulo was not used to int erpret this result as normal/abnormal . [facility] HospitalSejssheVLEXCQHBSF4778-64-41 12:07:00 Test Item Value Reference Range Interpretation Comments Eosinophils (test code = 0.6 See_Comment [A utomated message] The Eosinophils) system which ge nerated this result tra nsmitted reference range : <=4.0. The reference r romulo was not used to int erpret this result as normal/abnormal . [facility] HospitalSlgsagxXJIZSTMWDP2330-18-31 12:07:00 Test Item Value Reference Range Interpretation Comments Monocytes (test code = Monocytes) 12.2 2.0-12.0 [facility] HospitalSztjxqxSNPKQHSVRI9544-67-69 12:07:00 Test Item Value Reference Range Interpretation Comments Lymphocytes (test code = Lymphocytes) 18.4 20.0-40.0 [facility] HospitalTkzssskWXNPLYFENU1917-36-44 12:07:00 Test Item Value Reference Range Interpretation Comments Segs (test code = Segs) 68.5 45.0-75.0 [facility]2017-08-16 12:07:00 Test Item Value Reference Range Interpretation Comments eGFR (test code = eGFR) 102 [facility]2017-08-16 12:07:00 Test Item Value Reference Range Interpretation Comments Bili Total (test code = Bili Total) 2.1 0.2-1.3 [facility]2017-08-16 12:07:00 Test Item Value Reference Range Interpretation Comments A/G Ratio (test code = A/G Ratio) 0.9 0.7-1.6 [facility]2017-08-16 12:07:00 Test Item Value Reference Range Interpretation Comments Alk Phos (test code = Alk Phos) 77 39-136 [facility]2017-08-16 12:07:00 Test Item Value Reference Range Interpretation Comments AST (test code = AST) 39 See_Comment [Auto mated message] The system which ge nerated this result transmit nicole reference range : <=37. The reference range was not used to interpr et this result as kira l/abnormal. [facility]2017-08-16 12:07:00 Test Item Value Reference Range Interpretation Comments ALT (test code = ALT) 52 See_Comment [Auto mated message] The system which ge nerated this result transmit nicole reference range : <=65. The reference range was not used to interpr et this result as kira l/abnormal. [facility]2017-08-16 12:07:00 Test Item Value Reference Range Interpretation Comments Albumin Lvl (test code = Albumin Lvl) 3.1 3.5-5.0 [facility]2017-08-16 12:07:00 Test Item Value Reference Range Interpretation Comments Globulin (test code = Globulin) 3.6 2.7-4.2 [facility]2017-08-16 12:07:00 Test Item Value Reference Range Interpretation Comments Total Protein (test code = Total 6.7 6.4-8.4 Protein) [facility]2017-08-16 12:07:00 Test Item Value Reference Range Interpretation Comments B/C Ratio (test code = B/C Ratio) 16 6-25 [facility]2017-08-16 12:07:00 Test Item Value Reference Range Interpretation Comments AGAP (test code = AGAP) 11.9 10.0-20.0 [facility]2017-08-16 12:07:00 Test Item Value Reference Range Interpretation Comments Potassium Lvl (test code = Potassium 3.9 3.5-5.1 Lvl) [facility]2017-08-16 12:07:00 Test Item Value Reference Range Interpretation Comments CO2 (test code = CO2) 27 24-32 [facility]2017-08-16 12:07:00 Test Item Value Reference Range Interpretation Comments Calcium Lvl (test code = Calcium Lvl) 8.3 8.5-10.5 [facility]2017-08-16 12:07:00 Test Item Value Reference Range Interpretation Comments Glucose Lvl (test code = Glucose Lvl) 262 70-99 [facility]2017-08-16 12:07:00 Test Item Value Reference Range Interpretation Comments BUN (test code = BUN) 13 7-22 [facility]2017-08-16 12:07:00 Test Item Value Reference Range Interpretation Comments Chloride Lvl (test code = Chloride Lvl) 99 95-109 [facility]2017-08-16 12:07:00 Test Item Value Reference Range Interpretation Comments Sodium Lvl (test code = Sodium Lvl) 134 135-145 [facility]2017-08-16 12:07:00 Test Item Value Reference Range Interpretation Comments Creatinine Lvl (test code = Creatinine 0.83 0.50-1.40 Lvl) [facility] HospitalBgvxjnyEEGUULQSFP2497-57-17 12:07:00 Test Item Value Reference Range Interpretation Comments MPV (test code = MPV) 8.1 7.4-10.4 [facility] HospitalKdhwlvoMFHZDWROYM3560-40-84 12:07:00 Test Item Value Reference Range Interpretation Comments Platelet (test code = Platelet) 159 133-450 [facility] HospitalQpapgobSIKKXQEUUA0877-76-11 12:07:00 Test Item Value Reference Range Interpretation Comments RDW (test code = RDW) 13.7 11.5-14.5 [facility] HospitalBnhmrceYFYYLZWJPY9910-92-44 12:07:00 Test Item Value Reference Range Interpretation Comments RBC (test code = RBC) 4.17 4.70-6.10 [facility] HospitalYztcnziXAFBNLPVVK3861-74-55 12:07:00 Test Item Value Reference Range Interpretation Comments WBC (test code = WBC) 10.2 3.7-10.4 [facility] HospitalLrnhbhpACEWPLURQE3593-82-15 12:07:00 Test Item Value Reference Range Interpretation Comments Hgb (test code = Hgb) 13.1 14.0-18.0 [facility] HospitalCymtdstWFMJSLVKJA8379-69-30 12:07:00 Test Item Value Reference Range Interpretation Comments MCHC (test code = MCHC) 34.9 32.0-36.0 [facility] HospitalZqcmrxgGGZRUZLGAD1618-30-09 12:07:00 Test Item Value Reference Range Interpretation Comments MCH (test code = MCH) 31.5 pg 27.0-31.0 [facility] HospitalQmhadunDWTMHMKQKY9523-96-44 12:07:00 Test Item Value Reference Range Interpretation Comments MCV (test code = MCV) 90.2 80.0-94.0 [facility] HospitalTpzszizMYMWOHLHJT2747-71-60 12:07:00 Test Item Value Reference Range Interpretation Comments Hct (test code = Hct) 37.6 42.0-54.0 [facility] HospitalGxaafzbFIQUDQUPDK4296-88-88 12:07:00 Test Item Value Reference Range Interpretation Comments Segs-Bands # (test code = Segs-Bands #) 7.0 1.5-8.1 [facility] HospitalCnofzmdYYBJOOVFYD1198-37-89 12:07:00 Test Item Value Reference Range Interpretation Comments Lymphocytes # (test code = Lymphocytes 1.9 1.0-5.5 #) [facility] HospitalLlwftczTDXAWNBZHP4117-85-81 12:07:00 Test Item Value Reference Range Interpretation Comments Monocytes # (test code 1.2 See_Comment [Aut omated message] The = Monocytes #) system which generated this result tra nsmitted reference range : <=0.8. The reference r romulo was not used to int erpret this result as normal/abnormal . [facility] HospitalKtvhcxiXYZEXAJCWU1720-14-03 12:07:00 Test Item Value Reference Range Interpretation Comments Eosinophils # (test code 0.1 See_Comment [A utomated message] The = Eosinophils #) system whic h generated this result tra nsmitted reference range : <=0.5. The reference r romulo was not used to int erpret this result as normal/abnormal . [facility] HospitalLswjfhpPKWTPYCXVF7279-21-38 12:07:00 Test Item Value Reference Range Interpretation Comments Basophils (test code = 0.3 See_Comment [Aut omated message] The Basophils) system which ge nerated this result tra nsmitted reference range : <=1.0. The reference r romulo was not used to int erpret this result as normal/abnormal . [facility] HospitalFyqpkxtJKPTCFZFDU0326-71-54 12:07:00 Test Item Value Reference Range Interpretation Comments Eosinophils (test code = 0.6 See_Comment [A utomated message] The Eosinophils) system which ge nerated this result tra nsmitted reference range : <=4.0. The reference r romulo was not used to int erpret this result as normal/abnormal . [facility] HospitalNhzxcpmUOFBANSKLD3611-49-50 12:07:00 Test Item Value Reference Range Interpretation Comments Monocytes (test code = Monocytes) 12.2 2.0-12.0 [facility] HospitalHjbzmruUOQPNTFMDM9954-50-61 12:07:00 Test Item Value Reference Range Interpretation Comments Lymphocytes (test code = Lymphocytes) 18.4 20.0-40.0 [facility] HospitalFeadjxfZMKFZTCPGK9085-94-87 12:07:00 Test Item Value Reference Range Interpretation Comments Segs (test code = Segs) 68.5 45.0-75.0 [facility]2017-08-16 12:07:00 Test Item Value Reference Range Interpretation Comments eGFR (test code = eGFR) 102 [facility]2017-08-16 12:07:00 Test Item Value Reference Range Interpretation Comments Bili Total (test code = Bili Total) 2.1 0.2-1.3 [facility]2017-08-16 12:07:00 Test Item Value Reference Range Interpretation Comments A/G Ratio (test code = A/G Ratio) 0.9 0.7-1.6 [facility]2017-08-16 12:07:00 Test Item Value Reference Range Interpretation Comments Alk Phos (test code = Alk Phos) 77 39-136 [facility]2017-08-16 12:07:00 Test Item Value Reference Range Interpretation Comments AST (test code = AST) 39 See_Comment [Auto mated message] The system which ge nerated this result transmit nicole reference range : <=37. The reference range was not used to interpr et this result as kira l/abnormal. [facility]2017-08-16 12:07:00 Test Item Value Reference Range Interpretation Comments ALT (test code = ALT) 52 See_Comment [Auto mated message] The system which ge nerated this result transmit nicole reference range : <=65. The reference range was not used to interpr et this result as kira l/abnormal. [facility]2017-08-16 12:07:00 Test Item Value Reference Range Interpretation Comments Albumin Lvl (test code = Albumin Lvl) 3.1 3.5-5.0 [facility]2017-08-16 12:07:00 Test Item Value Reference Range Interpretation Comments Globulin (test code = Globulin) 3.6 2.7-4.2 [facility]2017-08-16 12:07:00 Test Item Value Reference Range Interpretation Comments Total Protein (test code = Total 6.7 6.4-8.4 Protein) [facility]2017-08-16 12:07:00 Test Item Value Reference Range Interpretation Comments B/C Ratio (test code = B/C Ratio) 16 6-25 [facility]2017-08-16 12:07:00 Test Item Value Reference Range Interpretation Comments AGAP (test code = AGAP) 11.9 10.0-20.0 [facility]2017-08-16 12:07:00 Test Item Value Reference Range Interpretation Comments Potassium Lvl (test code = Potassium 3.9 3.5-5.1 Lvl) [facility]2017-08-16 12:07:00 Test Item Value Reference Range Interpretation Comments CO2 (test code = CO2) 27 24-32 [facility]2017-08-16 12:07:00 Test Item Value Reference Range Interpretation Comments Calcium Lvl (test code = Calcium Lvl) 8.3 8.5-10.5 [facility]2017-08-16 12:07:00 Test Item Value Reference Range Interpretation Comments Glucose Lvl (test code = Glucose Lvl) 262 70-99 [facility]2017-08-16 12:07:00 Test Item Value Reference Range Interpretation Comments BUN (test code = BUN) 13 7-22 [facility]2017-08-16 12:07:00 Test Item Value Reference Range Interpretation Comments Chloride Lvl (test code = Chloride Lvl) 99 95-109 [facility]2017-08-16 12:07:00 Test Item Value Reference Range Interpretation Comments Sodium Lvl (test code = Sodium Lvl) 134 135-145 [facility]2017-08-16 12:07:00 Test Item Value Reference Range Interpretation Comments Creatinine Lvl (test code = Creatinine 0.83 0.50-1.40 Lvl) [facility] HospitalFpfwhrlRHTJFAPPPP1166-96-45 12:07:00 Test Item Value Reference Range Interpretation Comments MPV (test code = MPV) 8.1 7.4-10.4 [facility] HospitalIrzvqjmZXORTOLRGO3364-16-79 12:07:00 Test Item Value Reference Range Interpretation Comments Platelet (test code = Platelet) 159 133-450 [facility] HospitalCtgsqrvEZARTTAQQY7812-45-30 12:07:00 Test Item Value Reference Range Interpretation Comments RDW (test code = RDW) 13.7 11.5-14.5 [facility] HospitalYvrqhyaFXJDRNLQDF2455-82-55 12:07:00 Test Item Value Reference Range Interpretation Comments RBC (test code = RBC) 4.17 4.70-6.10 [facility] HospitalDbmnfqaXQFQQBQPUB3734-09-53 12:07:00 Test Item Value Reference Range Interpretation Comments WBC (test code = WBC) 10.2 3.7-10.4 [facility] HospitalMsksgnbCFGJTHEHJT9548-17-95 12:07:00 Test Item Value Reference Range Interpretation Comments Hgb (test code = Hgb) 13.1 14.0-18.0 [facility] HospitalSpgfhptTEVCIPBWQE8629-62-46 12:07:00 Test Item Value Reference Range Interpretation Comments MCHC (test code = MCHC) 34.9 32.0-36.0 [facility] HospitalOsztayyQACLCZDPNE4024-28-08 12:07:00 Test Item Value Reference Range Interpretation Comments MCH (test code = MCH) 31.5 pg 27.0-31.0 [facility] HospitalYunvdkoBJITOSNQKP4587-74-97 12:07:00 Test Item Value Reference Range Interpretation Comments MCV (test code = MCV) 90.2 80.0-94.0 [facility] HospitalQgmnbagQCQGQMUGTX9373-52-97 12:07:00 Test Item Value Reference Range Interpretation Comments Hct (test code = Hct) 37.6 42.0-54.0 [facility] HospitalUkxpczvLSEDZJMKKG4043-80-21 12:07:00 Test Item Value Reference Range Interpretation Comments Segs-Bands # (test code = Segs-Bands #) 7.0 1.5-8.1 [facility] HospitalZvdsrtvDBHOSXTELF1435-83-88 12:07:00 Test Item Value Reference Range Interpretation Comments Lymphocytes # (test code = Lymphocytes 1.9 1.0-5.5 #) [facility] HospitalWbjstioKWQHAKFWNC9154-65-25 12:07:00 Test Item Value Reference Range Interpretation Comments Monocytes # (test code 1.2 See_Comment [Aut omated message] The = Monocytes #) system which generated this result tra nsmitted reference range : <=0.8. The reference r romulo was not used to int erpret this result as normal/abnormal . [facility] HospitalQtioxwrNSZSTWPQLE3052-30-04 12:07:00 Test Item Value Reference Range Interpretation Comments Eosinophils # (test code 0.1 See_Comment [A utomated message] The = Eosinophils #) system whic h generated this result tra nsmitted reference range : <=0.5. The reference r romulo was not used to int erpret this result as normal/abnormal . [facility] HospitalSmblthuFTFASMGWII6217-40-93 12:07:00 Test Item Value Reference Range Interpretation Comments Basophils (test code = 0.3 See_Comment [Aut omated message] The Basophils) system which ge nerated this result tra nsmitted reference range : <=1.0. The reference r romulo was not used to int erpret this result as normal/abnormal . [facility] HospitalSrgyoejKYOJGYOYFM9309-52-72 12:07:00 Test Item Value Reference Range Interpretation Comments Eosinophils (test code = 0.6 See_Comment [A utomated message] The Eosinophils) system which ge nerated this result tra nsmitted reference range : <=4.0. The reference r romulo was not used to int erpret this result as normal/abnormal . [facility] HospitalBezdxamKSEXZDDJNC3002-71-54 12:07:00 Test Item Value Reference Range Interpretation Comments Monocytes (test code = Monocytes) 12.2 2.0-12.0 [facility] HospitalCdqmvgzVABNCBKXXU7281-47-81 12:07:00 Test Item Value Reference Range Interpretation Comments Lymphocytes (test code = Lymphocytes) 18.4 20.0-40.0 [facility] HospitalWbeguxxXOFRAVUCFJ3131-48-28 12:07:00 Test Item Value Reference Range Interpretation Comments Segs (test code = Segs) 68.5 45.0-75.0 [facility]2017-08-16 12:07:00 Test Item Value Reference Range Interpretation Comments eGFR (test code = eGFR) 102 [facility]2017-08-16 12:07:00 Test Item Value Reference Range Interpretation Comments Bili Total (test code = Bili Total) 2.1 0.2-1.3 [facility]2017-08-16 12:07:00 Test Item Value Reference Range Interpretation Comments A/G Ratio (test code = A/G Ratio) 0.9 0.7-1.6 [facility]2017-08-16 12:07:00 Test Item Value Reference Range Interpretation Comments Alk Phos (test code = Alk Phos) 77 39-136 [facility]2017-08-16 12:07:00 Test Item Value Reference Range Interpretation Comments AST (test code = AST) 39 See_Comment [Auto mated message] The system which ge nerated this result transmit nicole reference range : <=37. The reference range was not used to interpr et this result as kira l/abnormal. [facility]2017-08-16 12:07:00 Test Item Value Reference Range Interpretation Comments ALT (test code = ALT) 52 See_Comment [Auto mated message] The system which ge nerated this result transmit nicole reference range : <=65. The reference range was not used to interpr et this result as kira l/abnormal. [facility]2017-08-16 12:07:00 Test Item Value Reference Range Interpretation Comments Albumin Lvl (test code = Albumin Lvl) 3.1 3.5-5.0 [facility]2017-08-16 12:07:00 Test Item Value Reference Range Interpretation Comments Globulin (test code = Globulin) 3.6 2.7-4.2 [facility]2017-08-16 12:07:00 Test Item Value Reference Range Interpretation Comments Total Protein (test code = Total 6.7 6.4-8.4 Protein) [facility]2017-08-16 12:07:00 Test Item Value Reference Range Interpretation Comments B/C Ratio (test code = B/C Ratio) 16 6-25 [facility]2017-08-16 12:07:00 Test Item Value Reference Range Interpretation Comments AGAP (test code = AGAP) 11.9 10.0-20.0 [facility]2017-08-16 12:07:00 Test Item Value Reference Range Interpretation Comments Potassium Lvl (test code = Potassium 3.9 3.5-5.1 Lvl) [facility]2017-08-16 12:07:00 Test Item Value Reference Range Interpretation Comments CO2 (test code = CO2) 27 24-32 [facility]2017-08-16 12:07:00 Test Item Value Reference Range Interpretation Comments Calcium Lvl (test code = Calcium Lvl) 8.3 8.5-10.5 [facility]2017-08-16 12:07:00 Test Item Value Reference Range Interpretation Comments Glucose Lvl (test code = Glucose Lvl) 262 70-99 [facility]2017-08-16 12:07:00 Test Item Value Reference Range Interpretation Comments BUN (test code = BUN) 13 7-22 [facility]2017-08-16 12:07:00 Test Item Value Reference Range Interpretation Comments Chloride Lvl (test code = Chloride Lvl) 99 95-109 [facility]2017-08-16 12:07:00 Test Item Value Reference Range Interpretation Comments Sodium Lvl (test code = Sodium Lvl) 134 135-145 [facility]2017-08-16 12:07:00 Test Item Value Reference Range Interpretation Comments Creatinine Lvl (test code = Creatinine 0.83 0.50-1.40 Lvl) [facility] HospitalUwmkjtrWPQMFKJYIT1321-01-96 12:07:00 Test Item Value Reference Range Interpretation Comments MPV (test code = MPV) 8.1 7.4-10.4 [facility] HospitalXyyqjbjCMAXDJOFTH2090-40-54 12:07:00 Test Item Value Reference Range Interpretation Comments Platelet (test code = Platelet) 159 133-450 [facility] HospitalWpfffjcKDGOBAYHNT7658-86-37 12:07:00 Test Item Value Reference Range Interpretation Comments RDW (test code = RDW) 13.7 11.5-14.5 [facility] HospitalWjlbruoVQXLUOXJHR4373-83-45 12:07:00 Test Item Value Reference Range Interpretation Comments RBC (test code = RBC) 4.17 4.70-6.10 [facility] HospitalQyesrrlZMSXCEASMO3877-92-49 12:07:00 Test Item Value Reference Range Interpretation Comments WBC (test code = WBC) 10.2 3.7-10.4 [facility] HospitalQuhwtzlOMRHLPGNRI2239-35-38 12:07:00 Test Item Value Reference Range Interpretation Comments Hgb (test code = Hgb) 13.1 14.0-18.0 [facility] HospitalHdqzmsrIRIZACZTLZ1837-69-86 12:07:00 Test Item Value Reference Range Interpretation Comments MCHC (test code = MCHC) 34.9 32.0-36.0 [facility] HospitalCvspzbxHQQUGTBYJK0625-80-29 12:07:00 Test Item Value Reference Range Interpretation Comments MCH (test code = MCH) 31.5 pg 27.0-31.0 [facility] HospitalXwjwnbdBVPWSDJDHE7766-98-79 12:07:00 Test Item Value Reference Range Interpretation Comments MCV (test code = MCV) 90.2 80.0-94.0 [facility] HospitalDrsasluZMAOMSCIDP0124-35-09 12:07:00 Test Item Value Reference Range Interpretation Comments Hct (test code = Hct) 37.6 42.0-54.0 [facility] HospitalFqytcokGJLYTUCPJD1143-73-19 12:07:00 Test Item Value Reference Range Interpretation Comments Segs-Bands # (test code = Segs-Bands #) 7.0 1.5-8.1 [facility] HospitalHacaroqRJKZWIDKKD6130-96-10 12:07:00 Test Item Value Reference Range Interpretation Comments Lymphocytes # (test code = Lymphocytes 1.9 1.0-5.5 #) [facility] HospitalGcwhvkwDOVFRQUFTQ4768-12-44 12:07:00 Test Item Value Reference Range Interpretation Comments Monocytes # (test code 1.2 See_Comment [Aut omated message] The = Monocytes #) system which generated this result tra nsmitted reference range : <=0.8. The reference r romulo was not used to int erpret this result as normal/abnormal . [facility] HospitalEwcbcliTPOJICOMVH3930-50-22 12:07:00 Test Item Value Reference Range Interpretation Comments Eosinophils # (test code 0.1 See_Comment [A utomated message] The = Eosinophils #) system whic h generated this result tra nsmitted reference range : <=0.5. The reference r romulo was not used to int erpret this result as normal/abnormal . [facility] HospitalIpmksarQSMYSKIKME6630-11-74 12:07:00 Test Item Value Reference Range Interpretation Comments Basophils (test code = 0.3 See_Comment [Aut omated message] The Basophils) system which ge nerated this result tra nsmitted reference range : <=1.0. The reference r romulo was not used to int erpret this result as normal/abnormal . [facility] HospitalScqywqeREQTNQDMPR1299-17-08 12:07:00 Test Item Value Reference Range Interpretation Comments Eosinophils (test code = 0.6 See_Comment [A utomated message] The Eosinophils) system which ge nerated this result tra nsmitted reference range : <=4.0. The reference r romulo was not used to int erpret this result as normal/abnormal . [facility] HospitalWyiacdyQBPHVFNERX3034-30-22 12:07:00 Test Item Value Reference Range Interpretation Comments Monocytes (test code = Monocytes) 12.2 2.0-12.0 [facility] HospitalQfcyffuWOCZAPRSSU0152-97-08 12:07:00 Test Item Value Reference Range Interpretation Comments Lymphocytes (test code = Lymphocytes) 18.4 20.0-40.0 [facility] HospitalNrnbplxOOOPKPHUGJ2756-85-10 12:07:00 Test Item Value Reference Range Interpretation Comments Segs (test code = Segs) 68.5 45.0-75.0 [facility]2017-08-16 12:07:00 Test Item Value Reference Range Interpretation Comments eGFR (test code = eGFR) 102 [facility]2017-08-16 12:07:00 Test Item Value Reference Range Interpretation Comments Bili Total (test code = Bili Total) 2.1 0.2-1.3 [facility]2017-08-16 12:07:00 Test Item Value Reference Range Interpretation Comments A/G Ratio (test code = A/G Ratio) 0.9 0.7-1.6 [facility]2017-08-16 12:07:00 Test Item Value Reference Range Interpretation Comments Alk Phos (test code = Alk Phos) 77 39-136 [facility]2017-08-16 12:07:00 Test Item Value Reference Range Interpretation Comments AST (test code = AST) 39 See_Comment [Auto mated message] The system which ge nerated this result transmit nicole reference range : <=37. The reference range was not used to interpr et this result as kira l/abnormal. [facility]2017-08-16 12:07:00 Test Item Value Reference Range Interpretation Comments ALT (test code = ALT) 52 See_Comment [Auto mated message] The system which ge nerated this result transmit nicole reference range : <=65. The reference range was not used to interpr et this result as kira l/abnormal. [facility]2017-08-16 12:07:00 Test Item Value Reference Range Interpretation Comments Albumin Lvl (test code = Albumin Lvl) 3.1 3.5-5.0 [facility]2017-08-16 12:07:00 Test Item Value Reference Range Interpretation Comments Globulin (test code = Globulin) 3.6 2.7-4.2 [facility]2017-08-16 12:07:00 Test Item Value Reference Range Interpretation Comments Total Protein (test code = Total 6.7 6.4-8.4 Protein) [facility]2017-08-16 12:07:00 Test Item Value Reference Range Interpretation Comments B/C Ratio (test code = B/C Ratio) 16 6-25 [facility]2017-08-16 12:07:00 Test Item Value Reference Range Interpretation Comments AGAP (test code = AGAP) 11.9 10.0-20.0 [facility]2017-08-16 12:07:00 Test Item Value Reference Range Interpretation Comments Potassium Lvl (test code = Potassium 3.9 3.5-5.1 Lvl) [facility]2017-08-16 12:07:00 Test Item Value Reference Range Interpretation Comments CO2 (test code = CO2) 27 24-32 [facility]2017-08-16 12:07:00 Test Item Value Reference Range Interpretation Comments Calcium Lvl (test code = Calcium Lvl) 8.3 8.5-10.5 [facility]2017-08-16 12:07:00 Test Item Value Reference Range Interpretation Comments Glucose Lvl (test code = Glucose Lvl) 262 70-99 [facility]2017-08-16 12:07:00 Test Item Value Reference Range Interpretation Comments BUN (test code = BUN) 13 7-22 [facility]2017-08-16 12:07:00 Test Item Value Reference Range Interpretation Comments Chloride Lvl (test code = Chloride Lvl) 99 95-109 [facility]2017-08-16 12:07:00 Test Item Value Reference Range Interpretation Comments Sodium Lvl (test code = Sodium Lvl) 134 135-145 [facility]2017-08-16 12:07:00 Test Item Value Reference Range Interpretation Comments Creatinine Lvl (test code = Creatinine 0.83 0.50-1.40 Lvl) [facility]gnidpqNYQEMEYCNQ7675[facility]90-17 12:07:00 Test Item Value Reference Range Interpretation Comments MPV (test code = MPV) 8.1 7.4-10.4 [facility]XffjhioHMXLJSPTNO3470-64-89 12:07:00 Test Item Value Reference Range Interpretation Comments Platelet (test code = Platelet) 159 133-450 [facility] HospitalMbmiojcSREJHXPZRT4313-04-45 12:07:00 Test Item Value Reference Range Interpretation Comments RDW (test code = RDW) 13.7 11.5-14.5 [facility] HospitalGepvzkiRKEPHYPEVY8907-88-41 12:07:00 Test Item Value Reference Range Interpretation Comments RBC (test code = RBC) 4.17 4.70-6.10 [facility] HospitalGdjuphfCDZZWWMWEF1554-95-41 12:07:00 Test Item Value Reference Range Interpretation Comments WBC (test code = WBC) 10.2 3.7-10.4 [facility] HospitalMhmjvwePDSCUAHDHQ2863-61-63 12:07:00 Test Item Value Reference Range Interpretation Comments Hgb (test code = Hgb) 13.1 14.0-18.0 [facility] HospitalUtwjnyjJKAFFGDJZQ5282-55-10 12:07:00 Test Item Value Reference Range Interpretation Comments MCHC (test code = MCHC) 34.9 32.0-36.0 [facility] HospitalPxnxmanLAPFIPUXZH9981-53-70 12:07:00 Test Item Value Reference Range Interpretation Comments MCH (test code = MCH) 31.5 pg 27.0-31.0 [facility] HospitalTugqzvyYRXKCKBSDI9229-04-57 12:07:00 Test Item Value Reference Range Interpretation Comments MCV (test code = MCV) 90.2 80.0-94.0 [facility] HospitalYukhbihBBCAWMGKWF3376-17-69 12:07:00 Test Item Value Reference Range Interpretation Comments Hct (test code = Hct) 37.6 42.0-54.0 [facility] HospitalPyaefoqLDPYVPJDIJ9237-32-10 12:07:00 Test Item Value Reference Range Interpretation Comments Segs-Bands # (test code = Segs-Bands #) 7.0 1.5-8.1 [facility] HospitalBnmboooWDLPLKXYAK0077-70-48 12:07:00 Test Item Value Reference Range Interpretation Comments Lymphocytes # (test code = Lymphocytes 1.9 1.0-5.5 #) [facility] HospitalUlovcpnADUBBNJLFG8169-33-15 12:07:00 Test Item Value Reference Range Interpretation Comments Monocytes # (test code 1.2 See_Comment [Aut omated message] The = Monocytes #) system which generated this result tra nsmitted reference range : <=0.8. The reference r romulo was not used to int erpret this result as normal/abnormal . [facility] HospitalMdafxtlIWQURIKRBN6925-05-72 12:07:00 Test Item Value Reference Range Interpretation Comments Eosinophils # (test code 0.1 See_Comment [A utomated message] The = Eosinophils #) system whic h generated this result tra nsmitted reference range : <=0.5. The reference r romulo was not used to int erpret this result as normal/abnormal . [facility] HospitalMfelnxxZMGKHERHQS0872-11-66 12:07:00 Test Item Value Reference Range Interpretation Comments Basophils (test code = 0.3 See_Comment [Aut omated message] The Basophils) system which ge nerated this result tra nsmitted reference range : <=1.0. The reference r romulo was not used to int erpret this result as normal/abnormal . [facility] HospitalKsaagnxIJWMAFHMGD0917-66-30 12:07:00 Test Item Value Reference Range Interpretation Comments Eosinophils (test code = 0.6 See_Comment [A utomated message] The Eosinophils) system which ge nerated this result tra nsmitted reference range : <=4.0. The reference r romulo was not used to int erpret this result as normal/abnormal . [facility] HospitalRrdheeySPTAMJLGEE1578-38-47 12:07:00 Test Item Value Reference Range Interpretation Comments Monocytes (test code = Monocytes) 12.2 2.0-12.0 [facility] HospitalHkfxbqeYDQCVZGIDP2876-48-88 12:07:00 Test Item Value Reference Range Interpretation Comments Lymphocytes (test code = Lymphocytes) 18.4 20.0-40.0 [facility] HospitalSxlcwtdPXVWPIZEGG0204-53-93 12:07:00 Test Item Value Reference Range Interpretation Comments Segs (test code = Segs) 68.5 45.0-75.0 [facility]2017-08-15 10:11:00 Test Item Value Reference Range Interpretation Comments CO2 (test code = CO2) 29 24-32 [facility]2017-08-15 10:11:00 Test Item Value Reference Range Interpretation Comments Chloride Lvl (test code = Chloride Lvl) 104 95-109 [facility]2017-08-15 10:11:00 Test Item Value Reference Range Interpretation Comments Glucose Lvl (test code = Glucose Lvl) 119 70-99 [facility]2017-08-15 10:11:00 Test Item Value Reference Range Interpretation Comments Creatinine Lvl (test code = Creatinine 1.20 0.50-1.40 Lvl) [facility]2017-08-15 10:11:00 Test Item Value Reference Range Interpretation Comments BUN (test code = BUN) 16 7-22 [facility] HospitalAkvbiijGILMFVTCGK3634-96-36 10:11:00 Test Item Value Reference Range Interpretation Comments MCV (test code = MCV) 91.6 80.0-94.0 [facility] HospitalSwuluyzJUTSSYHSWD6985-15-63 10:11:00 Test Item Value Reference Range Interpretation Comments MCH (test code = MCH) 31.1 pg 27.0-31.0 [facility] HospitalAuomiioPMBMVCLMDR9113-83-82 10:11:00 Test Item Value Reference Range Interpretation Comments RDW (test code = RDW) 14.0 11.5-14.5 [facility] HospitalAnjxrzqVWWRAXYZYN7745-16-50 10:11:00 Test Item Value Reference Range Interpretation Comments MCHC (test code = MCHC) 34.0 32.0-36.0 [facility] HospitalLxxjmycCDVIDULIHB1892-85-74 10:11:00 Test Item Value Reference Range Interpretation Comments MPV (test code = MPV) 8.4 7.4-10.4 [facility] HospitalVfifjoeLOVAGQFPPR4956-20-80 10:11:00 Test Item Value Reference Range Interpretation Comments Hgb (test code = Hgb) 13.7 14.0-18.0 [facility] HospitalAsjpycaEPUOFBIPYL2263-65-32 10:11:00 Test Item Value Reference Range Interpretation Comments RBC (test code = RBC) 4.41 4.70-6.10 [facility] HospitalFnjnqlyZBBHIIRGKY5668-98-84 10:11:00 Test Item Value Reference Range Interpretation Comments Hct (test code = Hct) 40.4 42.0-54.0 [facility] HospitalDdjrnvyBZQNCDAICT3948-39-56 10:11:00 Test Item Value Reference Range Interpretation Comments WBC (test code = WBC) 9.1 3.7-10.4 [facility] HospitalMpxdwovWVTMRXSFFO9226-59-76 10:11:00 Test Item Value Reference Range Interpretation Comments Platelet (test code = Platelet) 165 133-450 [facility] HospitalAagbxdkQITDJTGBSY2108-39-86 10:11:00 Test Item Value Reference Range Interpretation Comments Lymphocytes (test code = Lymphocytes) 17.8 20.0-40.0 [facility] HospitalFmewmwlMYJCZMCLXS4705-00-39 10:11:00 Test Item Value Reference Range Interpretation Comments Segs (test code = Segs) 68.7 45.0-75.0 [facility] HospitalNmcextcRMBGLWLSVP6116-18-97 10:11:00 Test Item Value Reference Range Interpretation Comments Segs-Bands # (test code = Segs-Bands #) 6.3 1.5-8.1 [facility] HospitalDsnlrjdZEAEVWETHX9636-54-22 10:11:00 Test Item Value Reference Range Interpretation Comments Monocytes (test code = Monocytes) 11.9 2.0-12.0 [facility] HospitalNbitjewWGTKVMUGNJ4829-25-39 10:11:00 Test Item Value Reference Range Interpretation Comments Eosinophils (test code = 1.2 See_Comment [A utomated message] The Eosinophils) system which ge nerated this result tra nsmitted reference range : <=4.0. The reference r romulo was not used to int erpret this result as normal/abnormal . [facility] HospitalWztxxdrOLUPMERYNJ9236-51-39 10:11:00 Test Item Value Reference Range Interpretation Comments Basophils (test code = 0.4 See_Comment [Aut omated message] The Basophils) system which ge nerated this result tra nsmitted reference range : <=1.0. The reference r romulo was not used to int erpret this result as normal/abnormal . [facility] HospitalFhdejnjQTHYSRBLFQ7660-34-52 10:11:00 Test Item Value Reference Range Interpretation Comments Eosinophils # (test code 0.1 See_Comment [A utomated message] The = Eosinophils #) system wh h generated this result tra nsmitted reference range : <=0.5. The reference r romulo was not used to int erpret this result as normal/abnormal . [facility] HospitalKvsqaokHFUMIYBLJJ5659-19-56 10:11:00 Test Item Value Reference Range Interpretation Comments Monocytes # (test code 1.1 See_Comment [Aut omated message] The = Monocytes #) system which generated this result tra nsmitted reference range : <=0.8. The reference r romulo was not used to int erpret this result as normal/abnormal . [facility] HospitalDxclcjlAOIHPCCNUJ8276-33-42 10:11:00 Test Item Value Reference Range Interpretation Comments Lymphocytes # (test code = Lymphocytes 1.6 1.0-5.5 #) [facility]2017-08-15 10:11:00 Test Item Value Reference Range Interpretation Comments A/G Ratio (test code = A/G Ratio) 0.9 0.7-1.6 [facility]2017-08-15 10:11:00 Test Item Value Reference Range Interpretation Comments Globulin (test code = Globulin) 3.6 2.7-4.2 [facility]2017-08-15 10:11:00 Test Item Value Reference Range Interpretation Comments B/C Ratio (test code = B/C Ratio) 13 6-25 [facility]2017-08-15 10:11:00 Test Item Value Reference Range Interpretation Comments AGAP (test code = AGAP) 8.9 10.0-20.0 [facility]2017-08-15 10:11:00 Test Item Value Reference Range Interpretation Comments eGFR (test code = eGFR) 70 [facility]2017-08-15 10:11:00 Test Item Value Reference Range Interpretation Comments AST (test code = AST) 36 See_Comment [Auto mated message] The system which ge nerated this result transmit nicole reference range : <=37. The reference range was not used to interpr et this result as kira l/abnormal. [facility]2017-08-15 10:11:00 Test Item Value Reference Range Interpretation Comments Alk Phos (test code = Alk Phos) 83 39-136 [facility]2017-08-15 10:11:00 Test Item Value Reference Range Interpretation Comments ALT (test code = ALT) 38 See_Comment [Auto mated message] The system which ge nerated this result transmit nicole reference range : <=65. The reference range was not used to interpr et this result as kira l/abnormal. [facility]2017-08-15 10:11:00 Test Item Value Reference Range Interpretation Comments Total Protein (test code = Total 6.7 6.4-8.4 Protein) [facility]2017-08-15 10:11:00 Test Item Value Reference Range Interpretation Comments Calcium Lvl (test code = Calcium Lvl) 7.9 8.5-10.5 [facility]2017-08-15 10:11:00 Test Item Value Reference Range Interpretation Comments Albumin Lvl (test code = Albumin Lvl) 3.1 3.5-5.0 [facility]2017-08-15 10:11:00 Test Item Value Reference Range Interpretation Comments Bili Total (test code = Bili Total) 1.3 0.2-1.3 [facility]2017-08-15 10:11:00 Test Item Value Reference Range Interpretation Comments Sodium Lvl (test code = Sodium Lvl) 138 135-145 [facility]2017-08-15 10:11:00 Test Item Value Reference Range Interpretation Comments Potassium Lvl (test code = Potassium 3.9 3.5-5.1 Lvl) [facility]2017-08-15 10:11:00 Test Item Value Reference Range Interpretation Comments CO2 (test code = CO2) 29 24-32 [facility]2017-08-15 10:11:00 Test Item Value Reference Range Interpretation Comments A/G Ratio (test code = A/G Ratio) 0.9 0.7-1.6 [facility]2017-08-15 10:11:00 Test Item Value Reference Range Interpretation Comments Globulin (test code = Globulin) 3.6 2.7-4.2 [facility]2017-08-15 10:11:00 Test Item Value Reference Range Interpretation Comments B/C Ratio (test code = B/C Ratio) 13 6-25 [facility]2017-08-15 10:11:00 Test Item Value Reference Range Interpretation Comments AGAP (test code = AGAP) 8.9 10.0-20.0 [facility]2017-08-15 10:11:00 Test Item Value Reference Range Interpretation Comments eGFR (test code = eGFR) 70 [facility]2017-08-15 10:11:00 Test Item Value Reference Range Interpretation Comments AST (test code = AST) 36 See_Comment [Auto mated message] The system which ge nerated this result transmit nicole reference range : <=37. The reference range was not used to interpr et this result as kira l/abnormal. [facility]2017-08-15 10:11:00 Test Item Value Reference Range Interpretation Comments Alk Phos (test code = Alk Phos) 83 39-136 [facility]2017-08-15 10:11:00 Test Item Value Reference Range Interpretation Comments Chloride Lvl (test code = Chloride Lvl) 104 95-109 [facility]2017-08-15 10:11:00 Test Item Value Reference Range Interpretation Comments ALT (test code = ALT) 38 See_Comment [Auto mated message] The system which ge nerated this result transmit nicole reference range : <=65. The reference range was not used to interpr et this result as kira l/abnormal. [facility]2017-08-15 10:11:00 Test Item Value Reference Range Interpretation Comments Total Protein (test code = Total 6.7 6.4-8.4 Protein) [facility]2017-08-15 10:11:00 Test Item Value Reference Range Interpretation Comments Calcium Lvl (test code = Calcium Lvl) 7.9 8.5-10.5 [facility]2017-08-15 10:11:00 Test Item Value Reference Range Interpretation Comments Albumin Lvl (test code = Albumin Lvl) 3.1 3.5-5.0 [facility]2017-08-15 10:11:00 Test Item Value Reference Range Interpretation Comments Bili Total (test code = Bili Total) 1.3 0.2-1.3 [facility]2017-08-15 10:11:00 Test Item Value Reference Range Interpretation Comments Sodium Lvl (test code = Sodium Lvl) 138 135-145 [facility]2017-08-15 10:11:00 Test Item Value Reference Range Interpretation Comments Potassium Lvl (test code = Potassium 3.9 3.5-5.1 Lvl) [facility]2017-08-15 10:11:00 Test Item Value Reference Range Interpretation Comments CO2 (test code = CO2) 29 24-32 [facility]2017-08-15 10:11:00 Test Item Value Reference Range Interpretation Comments Chloride Lvl (test code = Chloride Lvl) 104 95-109 [facility]2017-08-15 10:11:00 Test Item Value Reference Range Interpretation Comments Glucose Lvl (test code = Glucose Lvl) 119 70-99 [facility]2017-08-15 10:11:00 Test Item Value Reference Range Interpretation Comments Glucose Lvl (test code = Glucose Lvl) 119 70-99 [facility]2017-08-15 10:11:00 Test Item Value Reference Range Interpretation Comments Creatinine Lvl (test code = Creatinine 1.20 0.50-1.40 Lvl) [facility]2017-08-15 10:11:00 Test Item Value Reference Range Interpretation Comments BUN (test code = BUN) 16 7-22 [facility]TgxripkHVTABTCEXX1204-44-94 10:11:00 Test Item Value Reference Range Interpretation Comments MCV (test code = MCV) 91.6 80.0-94.0 [facility] HospitalHxtakulTMTNJELDCZ2409-18-23 10:11:00 Test Item Value Reference Range Interpretation Comments MCH (test code = MCH) 31.1 pg 27.0-31.0 [facility] HospitalXarvaukFUWPSLYVXU1515-24-61 10:11:00 Test Item Value Reference Range Interpretation Comments RDW (test code = RDW) 14.0 11.5-14.5 [facility] HospitalScrghxyEBGEDFSIMG6193-29-79 10:11:00 Test Item Value Reference Range Interpretation Comments MCHC (test code = MCHC) 34.0 32.0-36.0 [facility] HospitalImxeuuyWMOSIJBLAX7297-60-22 10:11:00 Test Item Value Reference Range Interpretation Comments MPV (test code = MPV) 8.4 7.4-10.4 [facility] HospitalGixgbznDZGXSKVXXS3579-34-50 10:11:00 Test Item Value Reference Range Interpretation Comments Hgb (test code = Hgb) 13.7 14.0-18.0 [facility] HospitalSlxlurkMCQPNMOCRE9071-87-21 10:11:00 Test Item Value Reference Range Interpretation Comments RBC (test code = RBC) 4.41 4.70-6.10 [facility] HospitalNkjjwpbAZQUHOZCKJ0085-64-38 10:11:00 Test Item Value Reference Range Interpretation Comments Hct (test code = Hct) 40.4 42.0-54.0 [facility]2017-08-15 10:11:00 Test Item Value Reference Range Interpretation Comments Creatinine Lvl (test code = Creatinine 1.20 0.50-1.40 Lvl) [facility] HospitalKdwuxtpOFQCSHPAAA6097-59-67 10:11:00 Test Item Value Reference Range Interpretation Comments WBC (test code = WBC) 9.1 3.7-10.4 [facility] HospitalLqidhaeTCYRFYZERU9771-17-53 10:11:00 Test Item Value Reference Range Interpretation Comments Platelet (test code = Platelet) 165 133-450 [facility] HospitalPzsbnftUFUWROSHDC6597-52-40 10:11:00 Test Item Value Reference Range Interpretation Comments Lymphocytes (test code = Lymphocytes) 17.8 20.0-40.0 [facility] HospitalKweobibTBADAMTSEN2348-21-17 10:11:00 Test Item Value Reference Range Interpretation Comments Segs (test code = Segs) 68.7 45.0-75.0 [facility] HospitalYcanzdeBQPBQMZLPC3146-53-44 10:11:00 Test Item Value Reference Range Interpretation Comments Segs-Bands # (test code = Segs-Bands #) 6.3 1.5-8.1 [facility] HospitalXmklonmJVKCHITGIW0792-91-73 10:11:00 Test Item Value Reference Range Interpretation Comments Monocytes (test code = Monocytes) 11.9 2.0-12.0 [facility] HospitalGynzlwgEVARXIYBYD7518-85-15 10:11:00 Test Item Value Reference Range Interpretation Comments Eosinophils (test code = 1.2 See_Comment [A utomated message] The Eosinophils) system which ge nerated this result tra nsmitted reference range : <=4.0. The reference r romulo was not used to int erpret this result as normal/abnormal . [facility] HospitalAvfrjsfTRSPPUQXJE3693-31-14 10:11:00 Test Item Value Reference Range Interpretation Comments Basophils (test code = 0.4 See_Comment [Aut omated message] The Basophils) system which ge nerated this result tra nsmitted reference range : <=1.0. The reference r romulo was not used to int erpret this result as normal/abnormal . [facility] HospitalUzfltusVEYZXHTRQI7800-33-19 10:11:00 Test Item Value Reference Range Interpretation Comments Eosinophils # (test code 0.1 See_Comment [A utomated message] The = Eosinophils #) system whic h generated this result tra nsmitted reference range : <=0.5. The reference r romulo was not used to int erpret this result as normal/abnormal . [facility] HospitalLieqfftZYVQTQXGCS3489-28-92 10:11:00 Test Item Value Reference Range Interpretation Comments Monocytes # (test code 1.1 See_Comment [Aut omated message] The = Monocytes #) system which generated this result tra nsmitted reference range : <=0.8. The reference r romulo was not used to int erpret this result as normal/abnormal . [facility]2017-08-15 10:11:00 Test Item Value Reference Range Interpretation Comments BUN (test code = BUN) 16 - [facility] HospitalAqipmwdHXDCPXKWRD2604-11-53 10:11:00 Test Item Value Reference Range Interpretation Comments Lymphocytes # (test code = Lymphocytes 1.6 1.0-5.5 #) [facility] HospitalAzulotmWBZYEMGBYQ6793-74-08 10:11:00 Test Item Value Reference Range Interpretation Comments MCV (test code = MCV) 91.6 80.0-94.0 [facility] HospitalGclzuomYZEDOUMRQE8736-45-92 10:11:00 Test Item Value Reference Range Interpretation Comments MCH (test code = MCH) 31.1 pg 27.0-31.0 [facility] HospitalOpbztazUZFVCQKTSI1509-12-33 10:11:00 Test Item Value Reference Range Interpretation Comments RDW (test code = RDW) 14.0 11.5-14.5 [facility] HospitalMzcuiwrGBFPFIHAVS7018-03-04 10:11:00 Test Item Value Reference Range Interpretation Comments MCHC (test code = MCHC) 34.0 32.0-36.0 [facility] HospitalYhepnycEYYOOLTNRI9080-39-11 10:11:00 Test Item Value Reference Range Interpretation Comments MPV (test code = MPV) 8.4 7.4-10.4 [facility] HospitalUlrjlwgGAAEMIHYOJ3010-46-86 10:11:00 Test Item Value Reference Range Interpretation Comments Hgb (test code = Hgb) 13.7 14.0-18.0 [facility] HospitalZzdmhvvUQEZCYKGRR6007-33-84 10:11:00 Test Item Value Reference Range Interpretation Comments RBC (test code = RBC) 4.41 4.70-6.10 [facility] HospitalAvokqmqIULUIMXIET1639-02-32 10:11:00 Test Item Value Reference Range Interpretation Comments Hct (test code = Hct) 40.4 42.0-54.0 [facility] HospitalFltbgqjSGRRPQRLXG5527-07-81 10:11:00 Test Item Value Reference Range Interpretation Comments WBC (test code = WBC) 9.1 3.7-10.4 [facility] HospitalJfmcbtiPEHCPMXXCP6419-43-16 10:11:00 Test Item Value Reference Range Interpretation Comments Platelet (test code = Platelet) 165 133-450 [facility] HospitalWckcqyyZQFORQPBBU3264-01-63 10:11:00 Test Item Value Reference Range Interpretation Comments Lymphocytes (test code = Lymphocytes) 17.8 20.0-40.0 [facility] HospitalRjarmhnNUYUQYZPJR6711-38-14 10:11:00 Test Item Value Reference Range Interpretation Comments Segs (test code = Segs) 68.7 45.0-75.0 [facility] HospitalRlajhroNXIYQMTKQF1007-30-02 10:11:00 Test Item Value Reference Range Interpretation Comments Segs-Bands # (test code = Segs-Bands #) 6.3 1.5-8.1 [facility] HospitalSwojlekLGGAUOARMW2588-22-87 10:11:00 Test Item Value Reference Range Interpretation Comments Monocytes (test code = Monocytes) 11.9 2.0-12.0 [facility] HospitalLdggukwATPIHSGPUP8617-52-05 10:11:00 Test Item Value Reference Range Interpretation Comments Eosinophils (test code = 1.2 See_Comment [A utomated message] The Eosinophils) system which ge nerated this result tra nsmitted reference range : <=4.0. The reference r romulo was not used to int erpret this result as normal/abnormal . [facility] HospitalGbjfsnhETXUXJZVWH7150-89-66 10:11:00 Test Item Value Reference Range Interpretation Comments Basophils (test code = 0.4 See_Comment [Aut omated message] The Basophils) system which ge nerated this result tra nsmitted reference range : <=1.0. The reference r romulo was not used to int erpret this result as normal/abnormal . [facility] HospitalCqvqqssQPRIGRDZHQ3706-28-06 10:11:00 Test Item Value Reference Range Interpretation Comments Eosinophils # (test code 0.1 See_Comment [A utomated message] The = Eosinophils #) system whic h generated this result tra nsmitted reference range : <=0.5. The reference r romulo was not used to int erpret this result as normal/abnormal . [facility] HospitalGuwzhroGOEHFJWGVG3664-39-57 10:11:00 Test Item Value Reference Range Interpretation Comments Monocytes # (test code 1.1 See_Comment [Aut omated message] The = Monocytes #) system which generated this result tra nsmitted reference range : <=0.8. The reference r romulo was not used to int erpret this result as normal/abnormal . [facility]2017-08-15 10:11:00 Test Item Value Reference Range Interpretation Comments A/G Ratio (test code = A/G Ratio) 0.9 0.7-1.6 [facility]2017-08-15 10:11:00 Test Item Value Reference Range Interpretation Comments Globulin (test code = Globulin) 3.6 2.7-4.2 [facility]2017-08-15 10:11:00 Test Item Value Reference Range Interpretation Comments B/C Ratio (test code = B/C Ratio) 13 6-25 [facility]81 10:11:00 Test Item Value Reference Range Interpretation Comments Lymphocytes # (test code = Lymphocytes 1.6 1.0-5.5 #) [facility]2017-08-15 10:11:00 Test Item Value Reference Range Interpretation Comments AGAP (test code = AGAP) 8.9 10.0-20.0 [facility]2017-08-15 10:11:00 Test Item Value Reference Range Interpretation Comments eGFR (test code = eGFR) 70 [facility]2017-08-15 10:11:00 Test Item Value Reference Range Interpretation Comments AST (test code = AST) 36 See_Comment [Auto mated message] The system which ge nerated this result transmit nicole reference range : <=37. The reference range was not used to interpr et this result as kira l/abnormal. [facility]2017-08-15 10:11:00 Test Item Value Reference Range Interpretation Comments Alk Phos (test code = Alk Phos) 83 39-136 [facility]2017-08-15 10:11:00 Test Item Value Reference Range Interpretation Comments ALT (test code = ALT) 38 See_Comment [Auto mated message] The system which ge nerated this result transmit nicole reference range : <=65. The reference range was not used to interpr et this result as kira l/abnormal. [facility]2017-08-15 10:11:00 Test Item Value Reference Range Interpretation Comments Total Protein (test code = Total 6.7 6.4-8.4 Protein) [facility]2017-08-15 10:11:00 Test Item Value Reference Range Interpretation Comments Calcium Lvl (test code = Calcium Lvl) 7.9 8.5-10.5 [facility]2017-08-15 10:11:00 Test Item Value Reference Range Interpretation Comments Albumin Lvl (test code = Albumin Lvl) 3.1 3.5-5.0 [facility]2017-08-15 10:11:00 Test Item Value Reference Range Interpretation Comments Bili Total (test code = Bili Total) 1.3 0.2-1.3 [facility]2017-08-15 10:11:00 Test Item Value Reference Range Interpretation Comments Sodium Lvl (test code = Sodium Lvl) 138 135-145 [facility]2017-08-15 10:11:00 Test Item Value Reference Range Interpretation Comments Potassium Lvl (test code = Potassium 3.9 3.5-5.1 Lvl) [facility]2017-08-15 10:11:00 Test Item Value Reference Range Interpretation Comments CO2 (test code = CO2) 29 24-32 [facility]2017-08-15 10:11:00 Test Item Value Reference Range Interpretation Comments Chloride Lvl (test code = Chloride Lvl) 104 95-109 [facility]2017-08-15 10:11:00 Test Item Value Reference Range Interpretation Comments Glucose Lvl (test code = Glucose Lvl) 119 70-99 [facility]2017-08-15 10:11:00 Test Item Value Reference Range Interpretation Comments Creatinine Lvl (test code = Creatinine 1.20 0.50-1.40 Lvl) [facility]2017-08-15 10:11:00 Test Item Value Reference Range Interpretation Comments BUN (test code = BUN) 16 7-22 [facility]WhrvafyBGFOFWUPOD8665-99-28 10:11:00 Test Item Value Reference Range Interpretation Comments MCV (test code = MCV) 91.6 80.0-94.0 [facility] HospitalVgisyeoTRUWCJWOWS6085-85-02 10:11:00 Test Item Value Reference Range Interpretation Comments MCH (test code = MCH) 31.1 pg 27.0-31.0 [facility] HospitalIofvkhjPUPQFKVNWM9711-71-50 10:11:00 Test Item Value Reference Range Interpretation Comments RDW (test code = RDW) 14.0 11.5-14.5 [facility] HospitalGaqkcnzJPXYEEVOOA3162-14-91 10:11:00 Test Item Value Reference Range Interpretation Comments MCHC (test code = MCHC) 34.0 32.0-36.0 [facility] HospitalWpksiyqKAEUEECFPP6088-77-38 10:11:00 Test Item Value Reference Range Interpretation Comments MPV (test code = MPV) 8.4 7.4-10.4 [facility] HospitalOiwgikuRERCDCXSWC5350-33-77 10:11:00 Test Item Value Reference Range Interpretation Comments Hgb (test code = Hgb) 13.7 14.0-18.0 [facility] HospitalHmvuqjcXLQKKXCYIO1950-39-95 10:11:00 Test Item Value Reference Range Interpretation Comments RBC (test code = RBC) 4.41 4.70-6.10 [facility] HospitalYcbvdrkVKYJLKUVXZ1030-23-06 10:11:00 Test Item Value Reference Range Interpretation Comments Hct (test code = Hct) 40.4 42.0-54.0 [facility] HospitalJbbuhblDEUSYIAYAT5331-37-71 10:11:00 Test Item Value Reference Range Interpretation Comments WBC (test code = WBC) 9.1 3.7-10.4 [facility] HospitalDrgmskgTZTHGYHGQJ5029-43-10 10:11:00 Test Item Value Reference Range Interpretation Comments Platelet (test code = Platelet) 165 133-450 [facility] HospitalXtefhpdMJIKVOXEYE4016-72-59 10:11:00 Test Item Value Reference Range Interpretation Comments Lymphocytes (test code = Lymphocytes) 17.8 20.0-40.0 [facility] HospitalUxcxigbORCTXKOERP1596-44-41 10:11:00 Test Item Value Reference Range Interpretation Comments Segs (test code = Segs) 68.7 45.0-75.0 [facility] HospitalRfyrrhlCGWWHSEFWI3831-84-72 10:11:00 Test Item Value Reference Range Interpretation Comments Segs-Bands # (test code = Segs-Bands #) 6.3 1.5-8.1 [facility] HospitalHolwymaXSUUAPLQEV8008-09-01 10:11:00 Test Item Value Reference Range Interpretation Comments Monocytes (test code = Monocytes) 11.9 2.0-12.0 [facility] HospitalNztnmypDPYMOOVEDC5937-22-38 10:11:00 Test Item Value Reference Range Interpretation Comments Eosinophils (test code = 1.2 See_Comment [A utomated message] The Eosinophils) system which ge nerated this result tra nsmitted reference range : <=4.0. The reference r romulo was not used to int erpret this result as normal/abnormal . [facility] HospitalBrbnildMMDDLNZDNC4388-76-38 10:11:00 Test Item Value Reference Range Interpretation Comments Basophils (test code = 0.4 See_Comment [Aut omated message] The Basophils) system which ge nerated this result tra nsmitted reference range : <=1.0. The reference r romulo was not used to int erpret this result as normal/abnormal . [facility] HospitalKgwqqhoXHXHOPSWDI1413-75-99 10:11:00 Test Item Value Reference Range Interpretation Comments Eosinophils # (test code 0.1 See_Comment [A utomated message] The = Eosinophils #) system whic h generated this result tra nsmitted reference range : <=0.5. The reference r romulo was not used to int erpret this result as normal/abnormal . [facility] HospitalSbvtjoqWKHHHFPHLF0539-08-01 10:11:00 Test Item Value Reference Range Interpretation Comments Monocytes # (test code 1.1 See_Comment [Aut omated message] The = Monocytes #) system which generated this result tra nsmitted reference range : <=0.8. The reference r romulo was not used to int erpret this result as normal/abnormal . [facility] HospitalUwsmlusSNIHJIZPUP8913-56-50 10:11:00 Test Item Value Reference Range Interpretation Comments Lymphocytes # (test code = Lymphocytes 1.6 1.0-5.5 #) [facility]2017-08-15 10:11:00 Test Item Value Reference Range Interpretation Comments A/G Ratio (test code = A/G Ratio) 0.9 0.7-1.6 [facility]2017-08-15 10:11:00 Test Item Value Reference Range Interpretation Comments Globulin (test code = Globulin) 3.6 2.7-4.2 [facility]2017-08-15 10:11:00 Test Item Value Reference Range Interpretation Comments B/C Ratio (test code = B/C Ratio) 13 6-25 [facility]2017-08-15 10:11:00 Test Item Value Reference Range Interpretation Comments AGAP (test code = AGAP) 8.9 10.0-20.0 [facility]2017-08-15 10:11:00 Test Item Value Reference Range Interpretation Comments eGFR (test code = eGFR) 70 [facility]2017-08-15 10:11:00 Test Item Value Reference Range Interpretation Comments AST (test code = AST) 36 See_Comment [Auto mated message] The system which ge nerated this result transmit nicole reference range : <=37. The reference range was not used to interpr et this result as kira l/abnormal. [facility]2017-08-15 10:11:00 Test Item Value Reference Range Interpretation Comments Alk Phos (test code = Alk Phos) 83 39-136 [facility]2017-08-15 10:11:00 Test Item Value Reference Range Interpretation Comments ALT (test code = ALT) 38 See_Comment [Auto mated message] The system which ge nerated this result transmit nicole reference range : <=65. The reference range was not used to interpr et this result as kira l/abnormal. [facility]2017-08-15 10:11:00 Test Item Value Reference Range Interpretation Comments Total Protein (test code = Total 6.7 6.4-8.4 Protein) [facility]2017-08-15 10:11:00 Test Item Value Reference Range Interpretation Comments Calcium Lvl (test code = Calcium Lvl) 7.9 8.5-10.5 [facility]2017-08-15 10:11:00 Test Item Value Reference Range Interpretation Comments Albumin Lvl (test code = Albumin Lvl) 3.1 3.5-5.0 [facility]2017-08-15 10:11:00 Test Item Value Reference Range Interpretation Comments Bili Total (test code = Bili Total) 1.3 0.2-1.3 [facility]2017-08-15 10:11:00 Test Item Value Reference Range Interpretation Comments Sodium Lvl (test code = Sodium Lvl) 138 135-145 [facility]2017-08-15 10:11:00 Test Item Value Reference Range Interpretation Comments Potassium Lvl (test code = Potassium 3.9 3.5-5.1 Lvl) [facility]2017-08-15 10:11:00 Test Item Value Reference Range Interpretation Comments CO2 (test code = CO2) 29 24-32 [facility]2017-08-15 10:11:00 Test Item Value Reference Range Interpretation Comments Chloride Lvl (test code = Chloride Lvl) 104 95-109 [facility]2017-08-15 10:11:00 Test Item Value Reference Range Interpretation Comments Glucose Lvl (test code = Glucose Lvl) 119 70-99 [facility]2017-08-15 10:11:00 Test Item Value Reference Range Interpretation Comments Creatinine Lvl (test code = Creatinine 1.20 0.50-1.40 Lvl) [facility]2017-08-15 10:11:00 Test Item Value Reference Range Interpretation Comments BUN (test code = BUN) 16 7-22 [facility] HospitalVdcnnblGAZNCMRELG7768-22-37 10:11:00 Test Item Value Reference Range Interpretation Comments MCV (test code = MCV) 91.6 80.0-94.0 [facility] HospitalNzxozrqHODWMWKEXG1150-61-12 10:11:00 Test Item Value Reference Range Interpretation Comments MCH (test code = MCH) 31.1 pg 27.0-31.0 [facility] HospitalOtcjssrVWQAWZTUDG7650-02-15 10:11:00 Test Item Value Reference Range Interpretation Comments RDW (test code = RDW) 14.0 11.5-14.5 [facility] HospitalImcgwqeGWRUXDBHAM2092-83-64 10:11:00 Test Item Value Reference Range Interpretation Comments MCHC (test code = MCHC) 34.0 32.0-36.0 [facility] HospitalTpijtojFHNWZDVXCR5436-71-90 10:11:00 Test Item Value Reference Range Interpretation Comments MPV (test code = MPV) 8.4 7.4-10.4 [facility] HospitalDvtkywdDIIUUIGBCT8054-55-96 10:11:00 Test Item Value Reference Range Interpretation Comments Hgb (test code = Hgb) 13.7 14.0-18.0 [facility] HospitalLdcewdzRTTYHMPIIR4936-33-79 10:11:00 Test Item Value Reference Range Interpretation Comments RBC (test code = RBC) 4.41 4.70-6.10 [facility] HospitalAqlhbctKUUQSVISOI1730-17-11 10:11:00 Test Item Value Reference Range Interpretation Comments Hct (test code = Hct) 40.4 42.0-54.0 [facility] HospitalZtoisoaOBQUENHLUZ0191-80-81 10:11:00 Test Item Value Reference Range Interpretation Comments WBC (test code = WBC) 9.1 3.7-10.4 [facility] HospitalEvgkwajCULBIEOPVZ2214-41-63 10:11:00 Test Item Value Reference Range Interpretation Comments Platelet (test code = Platelet) 165 133-450 [facility] HospitalLoaymtnRMDIJZKWTA9477-95-42 10:11:00 Test Item Value Reference Range Interpretation Comments Lymphocytes (test code = Lymphocytes) 17.8 20.0-40.0 [facility] HospitalNubocrdMXTDQJQIZV7624-98-64 10:11:00 Test Item Value Reference Range Interpretation Comments Segs (test code = Segs) 68.7 45.0-75.0 [facility] HospitalHyiidlrKTSJEBWPSD7703-59-66 10:11:00 Test Item Value Reference Range Interpretation Comments Segs-Bands # (test code = Segs-Bands #) 6.3 1.5-8.1 [facility] HospitalWglpwnjEUNUOECBFR1170-58-36 10:11:00 Test Item Value Reference Range Interpretation Comments Monocytes (test code = Monocytes) 11.9 2.0-12.0 [facility] HospitalGuekihtZVOLUAVOKA7708-19-17 10:11:00 Test Item Value Reference Range Interpretation Comments Eosinophils (test code = 1.2 See_Comment [A utomated message] The Eosinophils) system which ge nerated this result tra nsmitted reference range : <=4.0. The reference r romulo was not used to int erpret this result as normal/abnormal . [facility] HospitalHcyyhhnGTDQXQYLRL3780-70-25 10:11:00 Test Item Value Reference Range Interpretation Comments Basophils (test code = 0.4 See_Comment [Aut omated message] The Basophils) system which ge nerated this result tra nsmitted reference range : <=1.0. The reference r romulo was not used to int erpret this result as normal/abnormal . [facility] HospitalXvrnseuTGJSAIDGUA8589-12-98 10:11:00 Test Item Value Reference Range Interpretation Comments Eosinophils # (test code 0.1 See_Comment [A utomated message] The = Eosinophils #) system whic h generated this result tra nsmitted reference range : <=0.5. The reference r romulo was not used to int erpret this result as normal/abnormal . [facility] HospitalKiumzisUISUGYJRES6386-80-34 10:11:00 Test Item Value Reference Range Interpretation Comments Monocytes # (test code 1.1 See_Comment [Aut omated message] The = Monocytes #) system which generated this result tra nsmitted reference range : <=0.8. The reference r romulo was not used to int erpret this result as normal/abnormal . [facility] HospitalRdyxvhcNGWFDSSRLA8246-11-81 10:11:00 Test Item Value Reference Range Interpretation Comments Lymphocytes # (test code = Lymphocytes 1.6 1.0-5.5 #) [facility]2017-08-15 10:11:00 Test Item Value Reference Range Interpretation Comments A/G Ratio (test code = A/G Ratio) 0.9 0.7-1.6 [facility]2017-08-15 10:11:00 Test Item Value Reference Range Interpretation Comments Globulin (test code = Globulin) 3.6 2.7-4.2 [facility]2017-08-15 10:11:00 Test Item Value Reference Range Interpretation Comments B/C Ratio (test code = B/C Ratio) 13 6-25 [facility]2017-08-15 10:11:00 Test Item Value Reference Range Interpretation Comments AGAP (test code = AGAP) 8.9 10.0-20.0 [facility]2017-08-15 10:11:00 Test Item Value Reference Range Interpretation Comments eGFR (test code = eGFR) 70 [facility]2017-08-15 10:11:00 Test Item Value Reference Range Interpretation Comments AST (test code = AST) 36 See_Comment [Auto mated message] The system which ge nerated this result transmit nicole reference range : <=37. The reference range was not used to interpr et this result as kira l/abnormal. [facility]2017-08-15 10:11:00 Test Item Value Reference Range Interpretation Comments Alk Phos (test code = Alk Phos) 83 39-136 [facility]2017-08-15 10:11:00 Test Item Value Reference Range Interpretation Comments ALT (test code = ALT) 38 See_Comment [Auto mated message] The system which ge nerated this result transmit nicole reference range : <=65. The reference range was not used to interpr et this result as kira l/abnormal. [facility]2017-08-15 10:11:00 Test Item Value Reference Range Interpretation Comments Total Protein (test code = Total 6.7 6.4-8.4 Protein) [facility]2017-08-15 10:11:00 Test Item Value Reference Range Interpretation Comments Calcium Lvl (test code = Calcium Lvl) 7.9 8.5-10.5 [facility]2017-08-15 10:11:00 Test Item Value Reference Range Interpretation Comments Albumin Lvl (test code = Albumin Lvl) 3.1 3.5-5.0 [facility]2017-08-15 10:11:00 Test Item Value Reference Range Interpretation Comments Bili Total (test code = Bili Total) 1.3 0.2-1.3 [facility]2017-08-15 10:11:00 Test Item Value Reference Range Interpretation Comments Sodium Lvl (test code = Sodium Lvl) 138 135-145 [facility]2017-08-15 10:11:00 Test Item Value Reference Range Interpretation Comments Potassium Lvl (test code = Potassium 3.9 3.5-5.1 Lvl) [facility]2017-08-15 10:11:00 Test Item Value Reference Range Interpretation Comments CO2 (test code = CO2) 29 24-32 [facility]2017-08-15 10:11:00 Test Item Value Reference Range Interpretation Comments Chloride Lvl (test code = Chloride Lvl) 104 95-109 [facility]2017-08-15 10:11:00 Test Item Value Reference Range Interpretation Comments Glucose Lvl (test code = Glucose Lvl) 119 70-99 [facility]2017-08-15 10:11:00 Test Item Value Reference Range Interpretation Comments Creatinine Lvl (test code = Creatinine 1.20 0.50-1.40 Lvl) [facility]2017-08-15 10:11:00 Test Item Value Reference Range Interpretation Comments BUN (test code = BUN) 16 7-22 [facility] HospitalRkkuqtmYDSVYTSWPE1224-04-36 10:11:00 Test Item Value Reference Range Interpretation Comments MCV (test code = MCV) 91.6 80.0-94.0 [facility] HospitalXrypcafRQEGHYGLLK9521-77-28 10:11:00 Test Item Value Reference Range Interpretation Comments MCH (test code = MCH) 31.1 pg 27.0-31.0 [facility] HospitalRifuxaqCWFKRITBJT9783-24-69 10:11:00 Test Item Value Reference Range Interpretation Comments RDW (test code = RDW) 14.0 11.5-14.5 [facility] HospitalWdyxhasXBVENXUIOJ6907-42-71 10:11:00 Test Item Value Reference Range Interpretation Comments MCHC (test code = MCHC) 34.0 32.0-36.0 [facility] HospitalXjwgtttLHBUTUECJQ1094-81-57 10:11:00 Test Item Value Reference Range Interpretation Comments MPV (test code = MPV) 8.4 7.4-10.4 [facility] HospitalVmmzimaDKIMYKHTZJ8791-73-71 10:11:00 Test Item Value Reference Range Interpretation Comments Hgb (test code = Hgb) 13.7 14.0-18.0 [facility] HospitalRldqpcfMZTOPRSJST9748-73-62 10:11:00 Test Item Value Reference Range Interpretation Comments RBC (test code = RBC) 4.41 4.70-6.10 [facility] HospitalUltdkupGTCFUPJIYB7813-50-17 10:11:00 Test Item Value Reference Range Interpretation Comments Hct (test code = Hct) 40.4 42.0-54.0 [facility] HospitalYuknubwUQMUDFKHWD9216-31-99 10:11:00 Test Item Value Reference Range Interpretation Comments WBC (test code = WBC) 9.1 3.7-10.4 [facility] HospitalRmhuvyuBFIUKFMAMF1544-49-38 10:11:00 Test Item Value Reference Range Interpretation Comments Platelet (test code = Platelet) 165 133-450 [facility] HospitalWsunxfvPRILYCNAQH8180-71-47 10:11:00 Test Item Value Reference Range Interpretation Comments Lymphocytes (test code = Lymphocytes) 17.8 20.0-40.0 [facility] HospitalDcmlzdyAFMXVLBURM1427-31-01 10:11:00 Test Item Value Reference Range Interpretation Comments Segs (test code = Segs) 68.7 45.0-75.0 [facility] HospitalGyetoxaIZBFXGTYEB7890-95-60 10:11:00 Test Item Value Reference Range Interpretation Comments Segs-Bands # (test code = Segs-Bands #) 6.3 1.5-8.1 [facility] HospitalPshypvdQEFBLVRQWO9776-08-16 10:11:00 Test Item Value Reference Range Interpretation Comments Monocytes (test code = Monocytes) 11.9 2.0-12.0 [facility] HospitalPsdznpgOPSXLMIXQD0687-11-96 10:11:00 Test Item Value Reference Range Interpretation Comments Eosinophils (test code = 1.2 See_Comment [A utomated message] The Eosinophils) system which ge nerated this result tra nsmitted reference range : <=4.0. The reference r romulo was not used to int erpret this result as normal/abnormal . [facility] HospitalEiyoladSKZVIZVQME0942-08-48 10:11:00 Test Item Value Reference Range Interpretation Comments Basophils (test code = 0.4 See_Comment [Aut omated message] The Basophils) system which ge nerated this result tra nsmitted reference range : <=1.0. The reference r romulo was not used to int erpret this result as normal/abnormal . [facility] HospitalJqaemgpYSHZMCXFEY3645-60-47 10:11:00 Test Item Value Reference Range Interpretation Comments Eosinophils # (test code 0.1 See_Comment [A utomated message] The = Eosinophils #) system whic h generated this result tra nsmitted reference range : <=0.5. The reference r romulo was not used to int erpret this result as normal/abnormal . [facility] HospitalWzvwgjmVWDDOZZOAT7619-05-03 10:11:00 Test Item Value Reference Range Interpretation Comments Monocytes # (test code 1.1 See_Comment [Aut omated message] The = Monocytes #) system which generated this result tra nsmitted reference range : <=0.8. The reference r romulo was not used to int erpret this result as normal/abnormal . [facility] HospitalGxywgxlRKAANBRCTR8725-15-03 10:11:00 Test Item Value Reference Range Interpretation Comments Lymphocytes # (test code = Lymphocytes 1.6 1.0-5.5 #) [facility]2017-08-15 10:11:00 Test Item Value Reference Range Interpretation Comments A/G Ratio (test code = A/G Ratio) 0.9 0.7-1.6 [facility]2017-08-15 10:11:00 Test Item Value Reference Range Interpretation Comments Globulin (test code = Globulin) 3.6 2.7-4.2 [facility]2017-08-15 10:11:00 Test Item Value Reference Range Interpretation Comments B/C Ratio (test code = B/C Ratio) 13 6-25 [facility]2017-08-15 10:11:00 Test Item Value Reference Range Interpretation Comments AGAP (test code = AGAP) 8.9 10.0-20.0 [facility]2017-08-15 10:11:00 Test Item Value Reference Range Interpretation Comments eGFR (test code = eGFR) 70 [facility]2017-08-15 10:11:00 Test Item Value Reference Range Interpretation Comments AST (test code = AST) 36 See_Comment [Auto mated message] The system which ge nerated this result transmit nicole reference range : <=37. The reference range was not used to interpr et this result as kira l/abnormal. [facility]2017-08-15 10:11:00 Test Item Value Reference Range Interpretation Comments Alk Phos (test code = Alk Phos) 83 39-136 [facility]2017-08-15 10:11:00 Test Item Value Reference Range Interpretation Comments ALT (test code = ALT) 38 See_Comment [Auto mated message] The system which ge nerated this result transmit nicole reference range : <=65. The reference range was not used to interpr et this result as kira l/abnormal. [facility]2017-08-15 10:11:00 Test Item Value Reference Range Interpretation Comments Total Protein (test code = Total 6.7 6.4-8.4 Protein) [facility]2017-08-15 10:11:00 Test Item Value Reference Range Interpretation Comments Calcium Lvl (test code = Calcium Lvl) 7.9 8.5-10.5 [facility]2017-08-15 10:11:00 Test Item Value Reference Range Interpretation Comments Albumin Lvl (test code = Albumin Lvl) 3.1 3.5-5.0 [facility]2017-08-15 10:11:00 Test Item Value Reference Range Interpretation Comments Bili Total (test code = Bili Total) 1.3 0.2-1.3 [facility]2017-08-15 10:11:00 Test Item Value Reference Range Interpretation Comments Sodium Lvl (test code = Sodium Lvl) 138 135-145 [facility]2017-08-15 10:11:00 Test Item Value Reference Range Interpretation Comments Potassium Lvl (test code = Potassium 3.9 3.5-5.1 Lvl) [facility]2017-08-15 10:11:00 Test Item Value Reference Range Interpretation Comments CO2 (test code = CO2) 29 24-32 [facility]2017-08-15 10:11:00 Test Item Value Reference Range Interpretation Comments Chloride Lvl (test code = Chloride Lvl) 104 95-109 [facility]2017-08-15 10:11:00 Test Item Value Reference Range Interpretation Comments Glucose Lvl (test code = Glucose Lvl) 119 70-99 [place] 116587-08-15 10:11:00 Test Item Value Reference Range Interpretation Comments Creatinine Lvl (test code = Creatinine 1.20 0.50-1.40 Lvl) [facility]2017-08-15 10:11:00 Test Item Value Reference Range Interpretation Comments BUN (test code = BUN) 16 7-22 [facility]frhbzYSYVTAFDFP2018-33-53 10:11:00 Test Item Value Reference Range Interpretation Comments MCV (test code = MCV) 91.6 80.0-94.0 [facility]CpgqnwjTWKPVPMNJV6194-82-64 10:11:00 Test Item Value Reference Range Interpretation Comments MCH (test code = MCH) 31.1 pg 27.0-31.0 [facility] HospitalJwathtpAABQKHNWWD6454-60-99 10:11:00 Test Item Value Reference Range Interpretation Comments RDW (test code = RDW) 14.0 11.5-14.5 [facility] HospitalHkkspytQEPJWOZCFJ5396-12-38 10:11:00 Test Item Value Reference Range Interpretation Comments MCHC (test code = MCHC) 34.0 32.0-36.0 [facility] HospitalUewcxcqMIPCDKLWGO9305-45-20 10:11:00 Test Item Value Reference Range Interpretation Comments MPV (test code = MPV) 8.4 7.4-10.4 [facility] HospitalBaniixuYJWZMGMMXF7258-90-90 10:11:00 Test Item Value Reference Range Interpretation Comments Hgb (test code = Hgb) 13.7 14.0-18.0 [facility] HospitalPrhwpuyRTKBYLSGWU8279-23-09 10:11:00 Test Item Value Reference Range Interpretation Comments RBC (test code = RBC) 4.41 4.70-6.10 [facility] HospitalPmaobkgDUVEBKISOA7664-48-32 10:11:00 Test Item Value Reference Range Interpretation Comments Hct (test code = Hct) 40.4 42.0-54.0 [facility] HospitalOnrafzbCECIZJSNQY2510-23-28 10:11:00 Test Item Value Reference Range Interpretation Comments WBC (test code = WBC) 9.1 3.7-10.4 [facility] HospitalGjjioehIJLLANGORI6837-91-69 10:11:00 Test Item Value Reference Range Interpretation Comments Platelet (test code = Platelet) 165 133-450 [facility] HospitalGpzcxxePMLRCEFOWJ4572-83-40 10:11:00 Test Item Value Reference Range Interpretation Comments Lymphocytes (test code = Lymphocytes) 17.8 20.0-40.0 [facility] HospitalIsfvkgcFRKNWSMIZQ0505-38-65 10:11:00 Test Item Value Reference Range Interpretation Comments Segs (test code = Segs) 68.7 45.0-75.0 [facility] HospitalHwawtpeBBMLEIXGMS7968-16-29 10:11:00 Test Item Value Reference Range Interpretation Comments Segs-Bands # (test code = Segs-Bands #) 6.3 1.5-8.1 [facility] HospitalCgwqkheFXPOWXXLDF0590-58-56 10:11:00 Test Item Value Reference Range Interpretation Comments Monocytes (test code = Monocytes) 11.9 2.0-12.0 [facility] HospitalCbvkujfWPMSQDQYCL9171-69-91 10:11:00 Test Item Value Reference Range Interpretation Comments Eosinophils (test code = 1.2 See_Comment [A utomated message] The Eosinophils) system which ge nerated this result tra nsmitted reference range : <=4.0. The reference r romulo was not used to int erpret this result as normal/abnormal . [facility] HospitalVsnqwgxIZIARQJRWE9824-35-48 10:11:00 Test Item Value Reference Range Interpretation Comments Basophils (test code = 0.4 See_Comment [Aut omated message] The Basophils) system which ge nerated this result tra nsmitted reference range : <=1.0. The reference r romulo was not used to int erpret this result as normal/abnormal . [facility] HospitalJggmqkxOSBQIIBMTM4712-94-04 10:11:00 Test Item Value Reference Range Interpretation Comments Eosinophils # (test code 0.1 See_Comment [A utomated message] The = Eosinophils #) system [facility] generated this result tra nsmitted reference range : <=0.5. The reference r romulo was not used to int erpret this result as normal/abnormal . [facility] HospitalKjsrsphFXPZPASGCO3690-54-78 10:11:00 Test Item Value Reference Range Interpretation Comments Monocytes # (test code 1.1 See_Comment [Aut omated message] The = Monocytes #) system which generated this result tra nsmitted reference range : <=0.8. The reference r romulo was not used to int erpret this result as normal/abnormal . [facility] HospitalUzaobbsDYEFHCLCNO5522-81-15 10:11:00 Test Item Value Reference Range Interpretation Comments Lymphocytes # (test code = Lymphocytes 1.6 1.0-5.5 #) [facility]2017-08-15 10:11:00 Test Item Value Reference Range Interpretation Comments A/G Ratio (test code = A/G Ratio) 0.9 0.7-1.6 [facility]2017-08-15 10:11:00 Test Item Value Reference Range Interpretation Comments Globulin (test code = Globulin) 3.6 2.7-4.2 [facility]2017-08-15 10:11:00 Test Item Value Reference Range Interpretation Comments B/C Ratio (test code = B/C Ratio) 13 6-25 [facility]2017-08-15 10:11:00 Test Item Value Reference Range Interpretation Comments AGAP (test code = AGAP) 8.9 10.0-20.0 [facility]2017-08-15 10:11:00 Test Item Value Reference Range Interpretation Comments eGFR (test code = eGFR) 70 [facility]2017-08-15 10:11:00 Test Item Value Reference Range Interpretation Comments AST (test code = AST) 36 See_Comment [Auto mated message] The system which ge nerated this result transmit nicole reference range : <=37. The reference range was not used to interpr et this result as kira l/abnormal. [facility]2017-08-15 10:11:00 Test Item Value Reference Range Interpretation Comments Alk Phos (test code = Alk Phos) 83 39-136 [facility]2017-08-15 10:11:00 Test Item Value Reference Range Interpretation Comments ALT (test code = ALT) 38 See_Comment [Auto mated message] The system which ge nerated this result transmit nicole reference range : <=65. The reference range was not used to interpr et this result as kira l/abnormal. [facility]2017-08-15 10:11:00 Test Item Value Reference Range Interpretation Comments Total Protein (test code = Total 6.7 6.4-8.4 Protein) [facility]2017-08-15 10:11:00 Test Item Value Reference Range Interpretation Comments Calcium Lvl (test code = Calcium Lvl) 7.9 8.5-10.5 [facility]2017-08-15 10:11:00 Test Item Value Reference Range Interpretation Comments Albumin Lvl (test code = Albumin Lvl) 3.1 3.5-5.0 [facility]2017-08-15 10:11:00 Test Item Value Reference Range Interpretation Comments Bili Total (test code = Bili Total) 1.3 0.2-1.3 [facility]2017-08-15 10:11:00 Test Item Value Reference Range Interpretation Comments Sodium Lvl (test code = Sodium Lvl) 138 135-145 [facility]2017-08-15 10:11:00 Test Item Value Reference Range Interpretation Comments Potassium Lvl (test code = Potassium 3.9 3.5-5.1 Lvl) [facility]2017-08-15 10:11:00 Test Item Value Reference Range Interpretation Comments CO2 (test code = CO2) 29 24-32 [facility]2017-08-15 10:11:00 Test Item Value Reference Range Interpretation Comments Chloride Lvl (test code = Chloride Lvl) 104 95-109 [facility]2017-08-15 10:11:00 Test Item Value Reference Range Interpretation Comments Glucose Lvl (test code = Glucose Lvl) 119 70-99 [facility]2017-08-15 10:11:00 Test Item Value Reference Range Interpretation Comments Creatinine Lvl (test code = Creatinine 1.20 0.50-1.40 Lvl) [facility]2017-08-15 10:11:00 Test Item Value Reference Range Interpretation Comments BUN (test code = BUN) 16 7-22 [facility] HospitalYuytcbjRLMVYOOKUH9249-18-33 10:11:00 Test Item Value Reference Range Interpretation Comments MCV (test code = MCV) 91.6 80.0-94.0 [facility] HospitalWlglrwwKXZLGNZYZI4393-46-79 10:11:00 Test Item Value Reference Range Interpretation Comments MCH (test code = MCH) 31.1 pg 27.0-31.0 [facility] HospitalKoqkpxbSYEYXNWCJU9916-28-94 10:11:00 Test Item Value Reference Range Interpretation Comments RDW (test code = RDW) 14.0 11.5-14.5 [facility] HospitalErgegmyFGFYTEXKCG5875-70-17 10:11:00 Test Item Value Reference Range Interpretation Comments MCHC (test code = MCHC) 34.0 32.0-36.0 [facility] HospitalIfdxslaPRBDNLIHCB4009-55-95 10:11:00 Test Item Value Reference Range Interpretation Comments MPV (test code = MPV) 8.4 7.4-10.4 [facility] HospitalXucprihTPZWKEOHCN5110-20-59 10:11:00 Test Item Value Reference Range Interpretation Comments Hgb (test code = Hgb) 13.7 14.0-18.0 [facility] HospitalPfjakccTYAGWYFAQS5905-95-88 10:11:00 Test Item Value Reference Range Interpretation Comments RBC (test code = RBC) 4.41 4.70-6.10 [facility] HospitalEueukncIRBMUQCDBM7518-45-44 10:11:00 Test Item Value Reference Range Interpretation Comments Hct (test code = Hct) 40.4 42.0-54.0 [facility] HospitalGhekwqdVQPQLMEQRA4984-30-81 10:11:00 Test Item Value Reference Range Interpretation Comments WBC (test code = WBC) 9.1 3.7-10.4 [facility] HospitalSrqcbrrDHQISCGWCP0346-57-93 10:11:00 Test Item Value Reference Range Interpretation Comments Platelet (test code = Platelet) 165 133-450 [facility] HospitalQvujorcGBKZZVNXQU0359-10-01 10:11:00 Test Item Value Reference Range Interpretation Comments Lymphocytes (test code = Lymphocytes) 17.8 20.0-40.0 [facility] HospitalBoyvuxzSDCXSSBKLP9475-96-25 10:11:00 Test Item Value Reference Range Interpretation Comments Segs (test code = Segs) 68.7 45.0-75.0 [facility] HospitalQygthgxCTWNYLDJLM9829-03-76 10:11:00 Test Item Value Reference Range Interpretation Comments Segs-Bands # (test code = Segs-Bands #) 6.3 1.5-8.1 [facility] HospitalOqrvpooUEYYEXYFDF5391-67-36 10:11:00 Test Item Value Reference Range Interpretation Comments Monocytes (test code = Monocytes) 11.9 2.0-12.0 [facility] HospitalQuygzxcCUWHWUYEBG5310-43-70 10:11:00 Test Item Value Reference Range Interpretation Comments Eosinophils (test code = 1.2 See_Comment [A utomated message] The Eosinophils) system which ge nerated this result tra nsmitted reference range : <=4.0. The reference r romulo was not used to int erpret this result as normal/abnormal . [facility] HospitalQmzypskIZWAGLLVUH0115-35-21 10:11:00 Test Item Value Reference Range Interpretation Comments Basophils (test code = 0.4 See_Comment [Aut omated message] The Basophils) system which ge nerated this result tra nsmitted reference range : <=1.0. The reference r romulo was not used to int erpret this result as normal/abnormal . [facility] HospitalJgflvlqTFJNYRAOXD7383-60-46 10:11:00 Test Item Value Reference Range Interpretation Comments Eosinophils # (test code 0.1 See_Comment [A utomated message] The = Eosinophils #) system whic h generated this result tra nsmitted reference range : <=0.5. The reference r romulo was not used to int erpret this result as normal/abnormal . [facility] HospitalWlwjbtkITCMFVLKRK2843-40-43 10:11:00 Test Item Value Reference Range Interpretation Comments Monocytes # (test code 1.1 See_Comment [Aut omated message] The = Monocytes #) system which generated this result tra nsmitted reference range : <=0.8. The reference r romulo was not used to int erpret this result as normal/abnormal . [facility] HospitalIrgsktjLASAEOWRST1225-85-33 10:11:00 Test Item Value Reference Range Interpretation Comments Lymphocytes # (test code = Lymphocytes 1.6 1.0-5.5 #) [facility]2017-08-15 10:11:00 Test Item Value Reference Range Interpretation Comments A/G Ratio (test code = A/G Ratio) 0.9 0.7-1.6 [facility]2017-08-15 10:11:00 Test Item Value Reference Range Interpretation Comments Globulin (test code = Globulin) 3.6 2.7-4.2 [facility]2017-08-15 10:11:00 Test Item Value Reference Range Interpretation Comments B/C Ratio (test code = B/C Ratio) 13 6-25 [facility]2017-08-15 10:11:00 Test Item Value Reference Range Interpretation Comments AGAP (test code = AGAP) 8.9 10.0-20.0 [facility]2017-08-15 10:11:00 Test Item Value Reference Range Interpretation Comments eGFR (test code = eGFR) 70 [facility]2017-08-15 10:11:00 Test Item Value Reference Range Interpretation Comments AST (test code = AST) 36 See_Comment [Auto mated message] The system which ge nerated this result transmit nicole reference range : <=37. The reference range was not used to interpr et this result as kira l/abnormal. [facility]2017-08-15 10:11:00 Test Item Value Reference Range Interpretation Comments Alk Phos (test code = Alk Phos) 83 39-136 [facility]2017-08-15 10:11:00 Test Item Value Reference Range Interpretation Comments ALT (test code = ALT) 38 See_Comment [Auto mated message] The system which ge nerated this result transmit nicole reference range : <=65. The reference range was not used to interpr et this result as kira l/abnormal. [facility]2017-08-15 10:11:00 Test Item Value Reference Range Interpretation Comments Total Protein (test code = Total 6.7 6.4-8.4 Protein) [facility]2017-08-15 10:11:00 Test Item Value Reference Range Interpretation Comments Calcium Lvl (test code = Calcium Lvl) 7.9 8.5-10.5 [facility]2017-08-15 10:11:00 Test Item Value Reference Range Interpretation Comments Albumin Lvl (test code = Albumin Lvl) 3.1 3.5-5.0 [facility]2017-08-15 10:11:00 Test Item Value Reference Range Interpretation Comments Bili Total (test code = Bili Total) 1.3 0.2-1.3 [facility]2017-08-15 10:11:00 Test Item Value Reference Range Interpretation Comments Sodium Lvl (test code = Sodium Lvl) 138 135-145 [facility]2017-08-15 10:11:00 Test Item Value Reference Range Interpretation Comments Potassium Lvl (test code = Potassium 3.9 3.5-5.1 Lvl) [facility]2017-08-15 10:11:00 Test Item Value Reference Range Interpretation Comments CO2 (test code = CO2) 29 24-32 [facility]2017-08-15 10:11:00 Test Item Value Reference Range Interpretation Comments Chloride Lvl (test code = Chloride Lvl) 104 95-109 [facility]2017-08-15 10:11:00 Test Item Value Reference Range Interpretation Comments Glucose Lvl (test code = Glucose Lvl) 119 70-99 [facility]2017-08-15 10:11:00 Test Item Value Reference Range Interpretation Comments Creatinine Lvl (test code = Creatinine 1.20 0.50-1.40 Lvl) [facility]2017-08-15 10:11:00 Test Item Value Reference Range Interpretation Comments BUN (test code = BUN) 16 7-22 [facility] HospitalLurqyyjZYLQPBPPZW8664-66-97 10:11:00 Test Item Value Reference Range Interpretation Comments MCV (test code = MCV) 91.6 80.0-94.0 [facility] HospitalQvcqodiWFTASZCUSU3046-48-44 10:11:00 Test Item Value Reference Range Interpretation Comments MCH (test code = MCH) 31.1 pg 27.0-31.0 [facility] HospitalEoycwxrGKIGTLDLXN1676-94-04 10:11:00 Test Item Value Reference Range Interpretation Comments RDW (test code = RDW) 14.0 11.5-14.5 [facility] HospitalDoacxexFQNQQENSQF8721-68-46 10:11:00 Test Item Value Reference Range Interpretation Comments MCHC (test code = MCHC) 34.0 32.0-36.0 [facility] HospitalQdpqjmuGCNYEGPLMK6195-66-00 10:11:00 Test Item Value Reference Range Interpretation Comments MPV (test code = MPV) 8.4 7.4-10.4 [facility] HospitalWvmvqboXNTDRWDWTQ7085-27-14 10:11:00 Test Item Value Reference Range Interpretation Comments Hgb (test code = Hgb) 13.7 14.0-18.0 [facility] HospitalXtqyqmuVTGTWYZIKE7644-02-24 10:11:00 Test Item Value Reference Range Interpretation Comments RBC (test code = RBC) 4.41 4.70-6.10 [facility] HospitalPiykzdaVWDKNURQXD6415-67-10 10:11:00 Test Item Value Reference Range Interpretation Comments Hct (test code = Hct) 40.4 42.0-54.0 [facility] HospitalHatggpfSIXWMTUKTQ3350-00-29 10:11:00 Test Item Value Reference Range Interpretation Comments WBC (test code = WBC) 9.1 3.7-10.4 [facility] HospitalDusvkwvLGBYRDQWIM4615-54-36 10:11:00 Test Item Value Reference Range Interpretation Comments Platelet (test code = Platelet) 165 133-450 [facility] HospitalGreipauBSSJXNTSWT5634-49-85 10:11:00 Test Item Value Reference Range Interpretation Comments Lymphocytes (test code = Lymphocytes) 17.8 20.0-40.0 [facility] HospitalVonvczbKTREEAXIKM4076-06-48 10:11:00 Test Item Value Reference Range Interpretation Comments Segs (test code = Segs) 68.7 45.0-75.0 [facility] HospitalUpehfpqVGOPCLOHTW5291-03-79 10:11:00 Test Item Value Reference Range Interpretation Comments Segs-Bands # (test code = Segs-Bands #) 6.3 1.5-8.1 [facility] HospitalXunlmrbRYALARSMVT6648-54-09 10:11:00 Test Item Value Reference Range Interpretation Comments Monocytes (test code = Monocytes) 11.9 2.0-12.0 [facility] HospitalOcklxuzGSEODDDDFN8827-18-35 10:11:00 Test Item Value Reference Range Interpretation Comments Eosinophils (test code = 1.2 See_Comment [A utomated message] The Eosinophils) system which ge nerated this result tra nsmitted reference range : <=4.0. The reference r romulo was not used to int erpret this result as normal/abnormal . [facility] HospitalXbnacpkHZTVMOTHGC8680-68-09 10:11:00 Test Item Value Reference Range Interpretation Comments Basophils (test code = 0.4 See_Comment [Aut omated message] The Basophils) system which ge nerated this result tra nsmitted reference range : <=1.0. The reference r romulo was not used to int erpret this result as normal/abnormal . [facility] HospitalSbkupdqFNRJSRNVXJ2774-35-48 10:11:00 Test Item Value Reference Range Interpretation Comments Eosinophils # (test code 0.1 See_Comment [A utomated message] The = Eosinophils #) system whic h generated this result tra nsmitted reference range : <=0.5. The reference r romulo was not used to int erpret this result as normal/abnormal . [facility] HospitalGxhulauPPTOZWXPRO1058-69-33 10:11:00 Test Item Value Reference Range Interpretation Comments Monocytes # (test code 1.1 See_Comment [Aut omated message] The = Monocytes #) system which generated this result tra nsmitted reference range : <=0.8. The reference r romulo was not used to int erpret this result as normal/abnormal . [facility] HospitalZmyfwguHDASQQEHFF7110-29-87 10:11:00 Test Item Value Reference Range Interpretation Comments Lymphocytes # (test code = Lymphocytes 1.6 1.0-5.5 #) [facility]2017-08-15 10:11:00 Test Item Value Reference Range Interpretation Comments A/G Ratio (test code = A/G Ratio) 0.9 0.7-1.6 [facility]2017-08-15 10:11:00 Test Item Value Reference Range Interpretation Comments Globulin (test code = Globulin) 3.6 2.7-4.2 [facility]2017-08-15 10:11:00 Test Item Value Reference Range Interpretation Comments B/C Ratio (test code = B/C Ratio) 13 6-25 [facility]2017-08-15 10:11:00 Test Item Value Reference Range Interpretation Comments AGAP (test code = AGAP) 8.9 10.0-20.0 [facility]2017-08-15 10:11:00 Test Item Value Reference Range Interpretation Comments eGFR (test code = eGFR) 70 [facility]2017-08-15 10:11:00 Test Item Value Reference Range Interpretation Comments AST (test code = AST) 36 See_Comment [Auto mated message] The system which ge nerated this result transmit nicole reference range : <=37. The reference range was not used to interpr et this result as kira l/abnormal. [facility]2017-08-15 10:11:00 Test Item Value Reference Range Interpretation Comments Alk Phos (test code = Alk Phos) 83 39-136 [facility]2017-08-15 10:11:00 Test Item Value Reference Range Interpretation Comments ALT (test code = ALT) 38 See_Comment [Auto mated message] The system which ge nerated this result transmit nicole reference range : <=65. The reference range was not used to interpr et this result as kira l/abnormal. [facility]2017-08-15 10:11:00 Test Item Value Reference Range Interpretation Comments Total Protein (test code = Total 6.7 6.4-8.4 Protein) [place] 116587-08-15 10:11:00 Test Item Value Reference Range Interpretation Comments Calcium Lvl (test code = Calcium Lvl) 7.9 8.5-10.5 [facility]2017-08-15 10:11:00 Test Item Value Reference Range Interpretation Comments Albumin Lvl (test code = Albumin Lvl) 3.1 3.5-5.0 [facility]2017-08-15 10:11:00 Test Item Value Reference Range Interpretation Comments Bili Total (test code = Bili Total) 1.3 0.2-1.3 [facility]2017-08-15 10:11:00 Test Item Value Reference Range Interpretation Comments Sodium Lvl (test code = Sodium Lvl) 138 135-145 [facility]2017-08-15 10:11:00 Test Item Value Reference Range Interpretation Comments Potassium Lvl (test code = Potassium 3.9 3.5-5.1 Lvl) [facility]2017-08-15 10:11:00 Test Item Value Reference Range Interpretation Comments CO2 (test code = CO2) 29 24-32 [facility]2017-08-15 10:11:00 Test Item Value Reference Range Interpretation Comments Chloride Lvl (test code = Chloride Lvl) 104 95-109 [facility]2017-08-15 10:11:00 Test Item Value Reference Range Interpretation Comments Glucose Lvl (test code = Glucose Lvl) 119 70-99 [facility]2017-08-15 10:11:00 Test Item Value Reference Range Interpretation Comments Creatinine Lvl (test code = Creatinine 1.20 0.50-1.40 Lvl) [facility]2017-08-15 10:11:00 Test Item Value Reference Range Interpretation Comments BUN (test code = BUN) 16 7-22 [facility] HospitalGdkibslMVKRCHGJMS1818-69-71 10:11:00 Test Item Value Reference Range Interpretation Comments MCV (test code = MCV) 91.6 80.0-94.0 [facility] HospitalFihqiugJQEATGOECL4775-44-32 10:11:00 Test Item Value Reference Range Interpretation Comments MCH (test code = MCH) 31.1 pg 27.0-31.0 [facility] HospitalDumkdcsWNPPOEPKPP1560-23-46 10:11:00 Test Item Value Reference Range Interpretation Comments RDW (test code = RDW) 14.0 11.5-14.5 [facility] HospitalXnceclnDRWTAFOVDR7466-22-52 10:11:00 Test Item Value Reference Range Interpretation Comments MCHC (test code = MCHC) 34.0 32.0-36.0 [facility] HospitalQhtenahAVCGHSPUVC5999-73-77 10:11:00 Test Item Value Reference Range Interpretation Comments MPV (test code = MPV) 8.4 7.4-10.4 [facility] HospitalNadeijlFFROJBIQZT5168-38-91 10:11:00 Test Item Value Reference Range Interpretation Comments Hgb (test code = Hgb) 13.7 14.0-18.0 [facility] HospitalGutckdhXTQCBAIPDJ8098-89-21 10:11:00 Test Item Value Reference Range Interpretation Comments RBC (test code = RBC) 4.41 4.70-6.10 [facility] HospitalQsenvjbTNPFAUEQHZ4069-40-06 10:11:00 Test Item Value Reference Range Interpretation Comments Hct (test code = Hct) 40.4 42.0-54.0 [facility] HospitalHupgxqlWACUAUWENS3138-44-07 10:11:00 Test Item Value Reference Range Interpretation Comments WBC (test code = WBC) 9.1 3.7-10.4 [facility] HospitalJxelyvdNMORTKYIFC0622-61-54 10:11:00 Test Item Value Reference Range Interpretation Comments Platelet (test code = Platelet) 165 133-450 [facility] HospitalYvpzqpwALUODENGQR8831-99-96 10:11:00 Test Item Value Reference Range Interpretation Comments Lymphocytes (test code = Lymphocytes) 17.8 20.0-40.0 [facility] HospitalGtvpwauQXJUHLOKAI5072-95-84 10:11:00 Test Item Value Reference Range Interpretation Comments Segs (test code = Segs) 68.7 45.0-75.0 [facility]HmflhfsLZSZWAFRUB5786-86-16 10:11:00 Test Item Value Reference Range Interpretation Comments Segs-Bands # (test code = Segs-Bands #) 6.3 1.5-8.1 [facility] HospitalSrzdooyJYFXYRMGBA6507-66-00 10:11:00 Test Item Value Reference Range Interpretation Comments Monocytes (test code = Monocytes) 11.9 2.0-12.0 [facility] HospitalJulnknwMMCIBUWPJT2957-96-30 10:11:00 Test Item Value Reference Range Interpretation Comments Eosinophils (test code = 1.2 See_Comment [A utomated message] The Eosinophils) system which ge nerated this result tra nsmitted reference range : <=4.0. The reference r romulo was not used to int erpret this result as normal/abnormal . [facility] HospitalNnzaupxLTSZTZZXFU1365-14-07 10:11:00 Test Item Value Reference Range Interpretation Comments Basophils (test code = 0.4 See_Comment [Aut omated message] The Basophils) system which ge nerated this result tra nsmitted reference range : <=1.0. The reference r romulo was not used to int erpret this result as normal/abnormal . [facility] HospitalMajelfiHRLKCREEKI5962-25-26 10:11:00 Test Item Value Reference Range Interpretation Comments Eosinophils # (test code 0.1 See_Comment [A utomated message] The = Eosinophils #) system whic h generated this result tra nsmitted reference range : <=0.5. The reference r romulo was not used to int erpret this result as normal/abnormal . [facility] HospitalWkoazqaZHYGHVTSCI3486-19-91 10:11:00 Test Item Value Reference Range Interpretation Comments Monocytes # (test code 1.1 See_Comment [Aut omated message] The = Monocytes #) system which generated this result tra nsmitted reference range : <=0.8. The reference r romulo was not used to int erpret this result as normal/abnormal . [facility] HospitalQqbfumkNTARNCTWSH4466-89-28 10:11:00 Test Item Value Reference Range Interpretation Comments Lymphocytes # (test code = Lymphocytes 1.6 1.0-5.5 #) [facility]2017-08-15 10:11:00 Test Item Value Reference Range Interpretation Comments A/G Ratio (test code = A/G Ratio) 0.9 0.7-1.6 [facility]2017-08-15 10:11:00 Test Item Value Reference Range Interpretation Comments Globulin (test code = Globulin) 3.6 2.7-4.2 [facility]2017-08-15 10:11:00 Test Item Value Reference Range Interpretation Comments B/C Ratio (test code = B/C Ratio) 13 6-25 [facility]2017-08-15 10:11:00 Test Item Value Reference Range Interpretation Comments AGAP (test code = AGAP) 8.9 10.0-20.0 [facility]2017-08-15 10:11:00 Test Item Value Reference Range Interpretation Comments eGFR (test code = eGFR) 70 [facility]2017-08-15 10:11:00 Test Item Value Reference Range Interpretation Comments AST (test code = AST) 36 See_Comment [Auto mated message] The system which ge nerated this result transmit nciole reference range : <=37. The reference range was not used to interpr et this result as kira l/abnormal. [facility]2017-08-15 10:11:00 Test Item Value Reference Range Interpretation Comments Alk Phos (test code = Alk Phos) 83 39-136 [facility]2017-08-15 10:11:00 Test Item Value Reference Range Interpretation Comments ALT (test code = ALT) 38 See_Comment [Auto mated message] The system which ge nerated this result transmit nicole reference range : <=65. The reference range was not used to interpr et this result as kira l/abnormal. [facility]2017-08-15 10:11:00 Test Item Value Reference Range Interpretation Comments Total Protein (test code = Total 6.7 6.4-8.4 Protein) [facility]2017-08-15 10:11:00 Test Item Value Reference Range Interpretation Comments Calcium Lvl (test code = Calcium Lvl) 7.9 8.5-10.5 [facility]2017-08-15 10:11:00 Test Item Value Reference Range Interpretation Comments Albumin Lvl (test code = Albumin Lvl) 3.1 3.5-5.0 [facility]2017-08-15 10:11:00 Test Item Value Reference Range Interpretation Comments Bili Total (test code = Bili Total) 1.3 0.2-1.3 [facility]2017-08-15 10:11:00 Test Item Value Reference Range Interpretation Comments Sodium Lvl (test code = Sodium Lvl) 138 135-145 [facility]2017-08-15 10:11:00 Test Item Value Reference Range Interpretation Comments Potassium Lvl (test code = Potassium 3.9 3.5-5.1 Lvl) [facility]2017-08-14 20:27:00 Test Item Value Reference Range Interpretation Comments Magnesium Lvl (test code = Magnesium 1.8 1.8-2.4 Lvl) [facility]2017-08-14 20:27:00 Test Item Value Reference Range Interpretation Comments eGFR (test code = eGFR) 63 [facility]2017-08-14 20:27:00 Test Item Value Reference Range Interpretation Comments Chloride Lvl (test code = Chloride Lvl) 106 95-109 [facility]2017-08-14 20:27:00 Test Item Value Reference Range Interpretation Comments Sodium Lvl (test code = Sodium Lvl) 138 135-145 [facility]2017-08-14 20:27:00 Test Item Value Reference Range Interpretation Comments Potassium Lvl (test code = Potassium 3.9 3.5-5.1 Lvl) [facility]2017-08-14 20:27:00 Test Item Value Reference Range Interpretation Comments CO2 (test code = CO2) 27 24-32 [facility]2017-08-14 20:27:00 Test Item Value Reference Range Interpretation Comments Calcium Lvl (test code = Calcium Lvl) 7.8 8.5-10.5 [facility]2017-08-14 20:27:00 Test Item Value Reference Range Interpretation Comments BUN (test code = BUN) 16 7-22 [facility]2017-08-14 20:27:00 Test Item Value Reference Range Interpretation Comments Creatinine Lvl (test code = Creatinine 1.30 0.50-1.40 Lvl) [facility]2017-08-14 20:27:00 Test Item Value Reference Range Interpretation Comments Glucose Lvl (test code = Glucose Lvl) 103 70-99 [facility]2017-08-14 20:27:00 Test Item Value Reference Range Interpretation Comments AGAP (test code = AGAP) 8.9 10.0-20.0 [facility] HospitalQwvvxodMCZHDXYIHF8530-20-11 20:27:00 Test Item Value Reference Range Interpretation Comments Basophils # (test code 0.1 See_Comment [Aut omated message] The = Basophils #) system which generated this result tra nsmitted reference range : <=0.2. The reference r romulo was not used to int erpret this result as normal/abnormal . [facility] HospitalOellwncRYFIRXDJVU4080-63-79 20:27:00 Test Item Value Reference Range Interpretation Comments Eosinophils (test code = 1.2 See_Comment [A utomated message] The Eosinophils) system which ge nerated this result tra nsmitted reference range : <=4.0. The reference r romulo was not used to int erpret this result as normal/abnormal . [facility] HospitalEswgvsyRDEZLTIYVT3996-17-54 20:27:00 Test Item Value Reference Range Interpretation Comments Monocytes (test code = Monocytes) 11.1 2.0-12.0 [facility] HospitalEowyvewHGWGJSXTGA6046-24-49 20:27:00 Test Item Value Reference Range Interpretation Comments Lymphocytes (test code = Lymphocytes) 23.6 20.0-40.0 [facility] HospitalWjlluvsAOQZMJBLZS5523-78-76 20:27:00 Test Item Value Reference Range Interpretation Comments Segs-Bands # (test code = Segs-Bands #) 5.1 1.5-8.1 [facility] HospitalYueqozkRGGWBFIHDG9897-57-90 20:27:00 Test Item Value Reference Range Interpretation Comments Monocytes # (test code 0.9 See_Comment [Aut omated message] The = Monocytes #) system which generated this result tra nsmitted reference range : <=0.8. The reference r romulo was not used to int erpret this result as normal/abnormal . [facility] HospitalRthudgzEFTCKYQDNJ6570-94-38 20:27:00 Test Item Value Reference Range Interpretation Comments Lymphocytes # (test code = Lymphocytes 1.9 1.0-5.5 #) [facility] HospitalPfffvthKTFHXIOJCT7690-25-19 20:27:00 Test Item Value Reference Range Interpretation Comments Eosinophils # (test code 0.1 See_Comment [A utomated message] The = Eosinophils #) system whic h generated this result tra nsmitted reference range : <=0.5. The reference r romulo was not used to int erpret this result as normal/abnormal . [facility] HospitalNhabmxrVEFCKWMHQX6418-48-36 20:27:00 Test Item Value Reference Range Interpretation Comments Basophils (test code = 0.8 See_Comment [Aut omated message] The Basophils) system which ge nerated this result tra nsmitted reference range : <=1.0. The reference r romulo was not used to int erpret this result as normal/abnormal . [facility] HospitalGcmiqpbMEEQKHJYAD8121-43-55 20:27:00 Test Item Value Reference Range Interpretation Comments Segs (test code = Segs) 63.3 45.0-75.0 [facility] HospitalGmznweuYIMBITLWIB6607-08-41 20:27:00 Test Item Value Reference Range Interpretation Comments MCHC (test code = MCHC) 33.7 32.0-36.0 [facility] HospitalLoquwhlJMYTBZQRPG8105-92-37 20:27:00 Test Item Value Reference Range Interpretation Comments MPV (test code = MPV) 7.8 7.4-10.4 [facility] HospitalAhjbwexIWYKQUGZIO8933-70-25 20:27:00 Test Item Value Reference Range Interpretation Comments Platelet (test code = Platelet) 182 133-450 [facility] HospitalZsdprgdUHAAYXIMQL3611-80-41 20:27:00 Test Item Value Reference Range Interpretation Comments RDW (test code = RDW) 13.8 11.5-14.5 [facility] HospitalSwxouogOCCQPEUNPA3963-51-83 20:27:00 Test Item Value Reference Range Interpretation Comments MCH (test code = MCH) 31.2 pg 27.0-31.0 [facility] HospitalFcncttmISVJHOYCKB5641-51-12 20:27:00 Test Item Value Reference Range Interpretation Comments MCV (test code = MCV) 92.5 80.0-94.0 [facility] HospitalAfezobzXLWYVZEWXF3147-21-94 20:27:00 Test Item Value Reference Range Interpretation Comments Hgb (test code = Hgb) 12.9 14.0-18.0 [facility] HospitalVismmkiZIFWNLHYOC2931-45-71 20:27:00 Test Item Value Reference Range Interpretation Comments Hct (test code = Hct) 38.4 42.0-54.0 [facility] HospitalRlphudqHYKQGUPETQ9223-30-11 20:27:00 Test Item Value Reference Range Interpretation Comments RBC (test code = RBC) 4.15 4.70-6.10 [facility] HospitalAeprfigYLRYEKPSRI3333-41-06 20:27:00 Test Item Value Reference Range Interpretation Comments WBC (test code = WBC) 8.1 3.7-10.4 [facility]2017-08-14 20:27:00 Test Item Value Reference Range Interpretation Comments Magnesium Lvl (test code = Magnesium 1.8 1.8-2.4 Lvl) [facility]2017-08-14 20:27:00 Test Item Value Reference Range Interpretation Comments eGFR (test code = eGFR) 63 [facility]2017-08-14 20:27:00 Test Item Value Reference Range Interpretation Comments Chloride Lvl (test code = Chloride Lvl) 106 95-109 [facility]2017-08-14 20:27:00 Test Item Value Reference Range Interpretation Comments Sodium Lvl (test code = Sodium Lvl) 138 135-145 [facility]2017-08-14 20:27:00 Test Item Value Reference Range Interpretation Comments Potassium Lvl (test code = Potassium 3.9 3.5-5.1 Lvl) [facility]2017-08-14 20:27:00 Test Item Value Reference Range Interpretation Comments CO2 (test code = CO2) 27 24-32 [facility]2017-08-14 20:27:00 Test Item Value Reference Range Interpretation Comments Calcium Lvl (test code = Calcium Lvl) 7.8 8.5-10.5 [facility]2017-08-14 20:27:00 Test Item Value Reference Range Interpretation Comments BUN (test code = BUN) 16 7-22 [facility]2017-08-14 20:27:00 Test Item Value Reference Range Interpretation Comments Creatinine Lvl (test code = Creatinine 1.30 0.50-1.40 Lvl) [facility]2017-08-14 20:27:00 Test Item Value Reference Range Interpretation Comments Glucose Lvl (test code = Glucose Lvl) 103 70-99 [facility]2017-08-14 20:27:00 Test Item Value Reference Range Interpretation Comments AGAP (test code = AGAP) 8.9 10.0-20.0 [facility] HospitalHraumkpEPXPLARPQO1148-00-01 20:27:00 Test Item Value Reference Range Interpretation Comments Basophils # (test code 0.1 See_Comment [Aut omated message] The = Basophils #) system which generated this result tra nsmitted reference range : <=0.2. The reference r romulo was not used to int erpret this result as normal/abnormal . [facility] HospitalAdgnbdmYJTEUFOBCI5336-97-84 20:27:00 Test Item Value Reference Range Interpretation Comments Eosinophils (test code = 1.2 See_Comment [A utomated message] The Eosinophils) system which ge nerated this result tra nsmitted reference range : <=4.0. The reference r romulo was not used to int erpret this result as normal/abnormal . [facility] HospitalMldghbaKFKHXQPXDD8718-47-12 20:27:00 Test Item Value Reference Range Interpretation Comments Monocytes (test code = Monocytes) 11.1 2.0-12.0 [facility] HospitalMuwwqezKNELDBCULS0583-16-46 20:27:00 Test Item Value Reference Range Interpretation Comments Lymphocytes (test code = Lymphocytes) 23.6 20.0-40.0 [facility] HospitalZyapirbIJAYLHJCWD5679-45-58 20:27:00 Test Item Value Reference Range Interpretation Comments Segs-Bands # (test code = Segs-Bands #) 5.1 1.5-8.1 [facility] HospitalGupbwevOGWRYBQFFQ7652-54-65 20:27:00 Test Item Value Reference Range Interpretation Comments Monocytes # (test code 0.9 See_Comment [Aut omated message] The = Monocytes #) system which generated this result tra nsmitted reference range : <=0.8. The reference r romulo was not used to int erpret this result as normal/abnormal . [facility] HospitalZaxihdoOQBJJEGCZW2552-11-78 20:27:00 Test Item Value Reference Range Interpretation Comments Lymphocytes # (test code = Lymphocytes 1.9 1.0-5.5 #) [facility] HospitalRumsvnyEBFBIBANIS7863-84-79 20:27:00 Test Item Value Reference Range Interpretation Comments Eosinophils # (test code 0.1 See_Comment [A utomated message] The = Eosinophils #) system [facility] generated this result tra nsmitted reference range : <=0.5. The reference r romulo was not used to int erpret this result as normal/abnormal . [facility] HospitalJgxueycFDJSPABWWQ8911-35-52 20:27:00 Test Item Value Reference Range Interpretation Comments Basophils (test code = 0.8 See_Comment [Aut omated message] The Basophils) system which ge nerated this result tra nsmitted reference range : <=1.0. The reference r romulo was not used to int erpret this result as normal/abnormal . [facility] HospitalTvdivuePKZIZRBMIF9167-41-01 20:27:00 Test Item Value Reference Range Interpretation Comments Segs (test code = Segs) 63.3 45.0-75.0 [facility] HospitalLzvzfmoQCRTVNUPFV7553-52-60 20:27:00 Test Item Value Reference Range Interpretation Comments MCHC (test code = MCHC) 33.7 32.0-36.0 [facility] HospitalDvgtayeGQFVZHZRDP0793-66-80 20:27:00 Test Item Value Reference Range Interpretation Comments MPV (test code = MPV) 7.8 7.4-10.4 [facility] HospitalLgqvdnxTFPWCHBCXL0020-76-37 20:27:00 Test Item Value Reference Range Interpretation Comments Platelet (test code = Platelet) 182 133-450 [facility] HospitalFlddasmUZICLGWMZD5757-78-83 20:27:00 Test Item Value Reference Range Interpretation Comments RDW (test code = RDW) 13.8 11.5-14.5 [facility] HospitalUseuobbTXANILXEEU3556-85-66 20:27:00 Test Item Value Reference Range Interpretation Comments MCH (test code = MCH) 31.2 pg 27.0-31.0 [facility] HospitalSjcpohbPLDRJWXEDA1239-54-84 20:27:00 Test Item Value Reference Range Interpretation Comments MCV (test code = MCV) 92.5 80.0-94.0 [facility] HospitalAonavolAOTOQZKTWQ4582-20-45 20:27:00 Test Item Value Reference Range Interpretation Comments Hgb (test code = Hgb) 12.9 14.0-18.0 [facility] HospitalUgbjrvzIVMNZZNPTA6761-88-61 20:27:00 Test Item Value Reference Range Interpretation Comments Hct (test code = Hct) 38.4 42.0-54.0 [facility] HospitalHtrvypkEMFMZTEVZV9864-07-19 20:27:00 Test Item Value Reference Range Interpretation Comments RBC (test code = RBC) 4.15 4.70-6.10 [facility] HospitalJeoaedxPWUJCJCNRB5100-41-07 20:27:00 Test Item Value Reference Range Interpretation Comments WBC (test code = WBC) 8.1 3.7-10.4 [facility]2017-08-14 20:27:00 Test Item Value Reference Range Interpretation Comments Magnesium Lvl (test code = Magnesium 1.8 1.8-2.4 Lvl) [facility]2017-08-14 20:27:00 Test Item Value Reference Range Interpretation Comments eGFR (test code = eGFR) 63 [facility]2017-08-14 20:27:00 Test Item Value Reference Range Interpretation Comments Chloride Lvl (test code = Chloride Lvl) 106 95-109 [facility]2017-08-14 20:27:00 Test Item Value Reference Range Interpretation Comments Sodium Lvl (test code = Sodium Lvl) 138 135-145 [facility]2017-08-14 20:27:00 Test Item Value Reference Range Interpretation Comments Potassium Lvl (test code = Potassium 3.9 3.5-5.1 Lvl) [facility]2017-08-14 20:27:00 Test Item Value Reference Range Interpretation Comments CO2 (test code = CO2) 27 24-32 [place] 116587-08-14 20:27:00 Test Item Value Reference Range Interpretation Comments Calcium Lvl (test code = Calcium Lvl) 7.8 8.5-10.5 [place] 116587-08-14 20:27:00 Test Item Value Reference Range Interpretation Comments BUN (test code = BUN) 16 7-22 [facility]2017-08-14 20:27:00 Test Item Value Reference Range Interpretation Comments Creatinine Lvl (test code = Creatinine 1.30 0.50-1.40 Lvl) [facility]2017-08-14 20:27:00 Test Item Value Reference Range Interpretation Comments Glucose Lvl (test code = Glucose Lvl) 103 70-99 [facility]2017-08-14 20:27:00 Test Item Value Reference Range Interpretation Comments AGAP (test code = AGAP) 8.9 10.0-20.0 [facility] HospitalMsoohwqMCMNJPJRXV1399-09-28 20:27:00 Test Item Value Reference Range Interpretation Comments Basophils # (test code 0.1 See_Comment [Aut omated message] The = Basophils #) system which generated this result tra nsmitted reference range : <=0.2. The reference r romulo was not used to int erpret this result as normal/abnormal . [facility] HospitalIwdkvjvVTSSSDEECB2259-54-76 20:27:00 Test Item Value Reference Range Interpretation Comments Eosinophils (test code = 1.2 See_Comment [A utomated message] The Eosinophils) system which ge nerated this result tra nsmitted reference range : <=4.0. The reference r romulo was not used to int erpret this result as normal/abnormal . [facility] HospitalLqrnyjkGILWRASTVG9922-37-65 20:27:00 Test Item Value Reference Range Interpretation Comments Monocytes (test code = Monocytes) 11.1 2.0-12.0 [facility] HospitalRxalambXJHXHUEOFY4381-85-28 20:27:00 Test Item Value Reference Range Interpretation Comments Lymphocytes (test code = Lymphocytes) 23.6 20.0-40.0 [facility] HospitalJxzbljbAPXHEZPBGB0710-66-91 20:27:00 Test Item Value Reference Range Interpretation Comments Segs-Bands # (test code = Segs-Bands #) 5.1 1.5-8.1 [facility] HospitalDmckbsuGYHBKNWNDG6284-34-47 20:27:00 Test Item Value Reference Range Interpretation Comments Monocytes # (test code 0.9 See_Comment [Aut omated message] The = Monocytes #) system which generated this result tra nsmitted reference range : <=0.8. The reference r romulo was not used to int erpret this result as normal/abnormal . [facility] HospitalKooajxvXWSLLNKDOI4339-87-02 20:27:00 Test Item Value Reference Range Interpretation Comments Lymphocytes # (test code = Lymphocytes 1.9 1.0-5.5 #) [facility] HospitalSbobzppTJPUHVPQZQ6151-49-55 20:27:00 Test Item Value Reference Range Interpretation Comments Eosinophils # (test code 0.1 See_Comment [A utomated message] The = Eosinophils #) system whic h generated this result tra nsmitted reference range : <=0.5. The reference r romulo was not used to int erpret this result as normal/abnormal . [facility] HospitalToxhiuzJVPQHUGSGX9626-94-91 20:27:00 Test Item Value Reference Range Interpretation Comments Basophils (test code = 0.8 See_Comment [Aut omated message] The Basophils) system which ge nerated this result tra nsmitted reference range : <=1.0. The reference r romulo was not used to int erpret this result as normal/abnormal . [facility] HospitalFjckaodLGVQLBXQVA7105-94-16 20:27:00 Test Item Value Reference Range Interpretation Comments Segs (test code = Segs) 63.3 45.0-75.0 [facility] HospitalEzkavdzEUGUCLFAYZ0615-93-17 20:27:00 Test Item Value Reference Range Interpretation Comments MCHC (test code = MCHC) 33.7 32.0-36.0 [facility] HospitalIbvvnxqGVQZUJOSSH7892-01-86 20:27:00 Test Item Value Reference Range Interpretation Comments MPV (test code = MPV) 7.8 7.4-10.4 [facility] HospitalGxdduoyEVOXDITXCD0543-84-86 20:27:00 Test Item Value Reference Range Interpretation Comments Platelet (test code = Platelet) 182 133-450 [facility] HospitalOekdrveKLDUCUGHSX6638-54-78 20:27:00 Test Item Value Reference Range Interpretation Comments RDW (test code = RDW) 13.8 11.5-14.5 [facility] HospitalAgykeypEDFSIAWEWM9061-76-32 20:27:00 Test Item Value Reference Range Interpretation Comments MCH (test code = MCH) 31.2 pg 27.0-31.0 [facility] HospitalXtodumoVYEVDYNUUP5054-28-97 20:27:00 Test Item Value Reference Range Interpretation Comments MCV (test code = MCV) 92.5 80.0-94.0 [facility] HospitalBppkahrPCZZUAOQUJ8948-80-56 20:27:00 Test Item Value Reference Range Interpretation Comments Hgb (test code = Hgb) 12.9 14.0-18.0 [facility] HospitalHlehftsTAKEJBTSVZ4279-35-09 20:27:00 Test Item Value Reference Range Interpretation Comments Hct (test code = Hct) 38.4 42.0-54.0 [facility] HospitalKzjvggeATZNIKROQF3077-22-38 20:27:00 Test Item Value Reference Range Interpretation Comments RBC (test code = RBC) 4.15 4.70-6.10 [facility] HospitalImknqhwZWISRPSRUB2676-56-63 20:27:00 Test Item Value Reference Range Interpretation Comments WBC (test code = WBC) 8.1 3.7-10.4 [facility]2017-08-14 20:27:00 Test Item Value Reference Range Interpretation Comments Magnesium Lvl (test code = Magnesium 1.8 1.8-2.4 Lvl) [facility]2017-08-14 20:27:00 Test Item Value Reference Range Interpretation Comments eGFR (test code = eGFR) 63 [facility]2017-08-14 20:27:00 Test Item Value Reference Range Interpretation Comments Chloride Lvl (test code = Chloride Lvl) 106 95-109 [facility]2017-08-14 20:27:00 Test Item Value Reference Range Interpretation Comments Sodium Lvl (test code = Sodium Lvl) 138 135-145 [facility]2017-08-14 20:27:00 Test Item Value Reference Range Interpretation Comments Potassium Lvl (test code = Potassium 3.9 3.5-5.1 Lvl) [facility]2017-08-14 20:27:00 Test Item Value Reference Range Interpretation Comments CO2 (test code = CO2) 27 24-32 [place] 116587-08-14 20:27:00 Test Item Value Reference Range Interpretation Comments Calcium Lvl (test code = Calcium Lvl) 7.8 8.5-10.5 [place] 116587-08-14 20:27:00 Test Item Value Reference Range Interpretation Comments BUN (test code = BUN) 16 7-22 [facility]2017-08-14 20:27:00 Test Item Value Reference Range Interpretation Comments Creatinine Lvl (test code = Creatinine 1.30 0.50-1.40 Lvl) [facility]2017-08-14 20:27:00 Test Item Value Reference Range Interpretation Comments Glucose Lvl (test code = Glucose Lvl) 103 70-99 [facility]2017-08-14 20:27:00 Test Item Value Reference Range Interpretation Comments AGAP (test code = AGAP) 8.9 10.0-20.0 [facility] HospitalMrzcnkmGTSTUXHMWH4274-37-84 20:27:00 Test Item Value Reference Range Interpretation Comments Basophils # (test code 0.1 See_Comment [Aut omated message] The = Basophils #) system which generated this result tra nsmitted reference range : <=0.2. The reference r romulo was not used to int erpret this result as normal/abnormal . [facility]OojmvxbLCUFYRWADG7205-23-[facility] 20:27:00 Test Item Value Reference Range Interpretation Comments Eosinophils (test code = 1.2 See_Comment [A utomated message] The Eosinophils) system which ge nerated this result tra nsmitted reference range : <=4.0. The reference r romulo was not used to int erpret this result as normal/abnormal . [place] 943917-08-14 20:27:00 Test Item Value Reference Range Interpretation Comments Monocytes (test code = Monocytes) 11.1 2.0-12.0 [facility] HospitalDurwohyKVRXTULZTI3454-68-09 20:27:00 Test Item Value Reference Range Interpretation Comments Lymphocytes (test code = Lymphocytes) 23.6 20.0-40.0 [facility] HospitalZuitqtlYNPNOACZOF0688-00-38 20:27:00 Test Item Value Reference Range Interpretation Comments Segs-Bands # (test code = Segs-Bands #) 5.1 1.5-8.1 [facility] HospitalMawqcwgDBHOJKBSXD5050-38-42 20:27:00 Test Item Value Reference Range Interpretation Comments Monocytes # (test code 0.9 See_Comment [Aut omated message] The = Monocytes #) system which generated this result tra nsmitted reference range : <=0.8. The reference r romulo was not used to int erpret this result as normal/abnormal . [facility] HospitalZnkfajlASCWRYDANH2724-20-36 20:27:00 Test Item Value Reference Range Interpretation Comments Lymphocytes # (test code = Lymphocytes 1.9 1.0-5.5 #) [facility] HospitalAhxcntvQHSAWKNNZS3469-19-08 20:27:00 Test Item Value Reference Range Interpretation Comments Eosinophils # (test code 0.1 See_Comment [A utomated message] The = Eosinophils #) system whic h generated this result tra nsmitted reference range : <=0.5. The reference r romulo was not used to int erpret this result as normal/abnormal . [facility] HospitalBiyzieeBANZJQBHIN6587-83-54 20:27:00 Test Item Value Reference Range Interpretation Comments Basophils (test code = 0.8 See_Comment [Aut omated message] The Basophils) system which ge nerated this result tra nsmitted reference range : <=1.0. The reference r romulo was not used to int erpret this result as normal/abnormal . [facility] HospitalBapqrogNJAACZNWLX5930-32-16 20:27:00 Test Item Value Reference Range Interpretation Comments Segs (test code = Segs) 63.3 45.0-75.0 [facility] HospitalNrdlcqxLRVWKKGYZO2677-91-38 20:27:00 Test Item Value Reference Range Interpretation Comments MCHC (test code = MCHC) 33.7 32.0-36.0 [facility] HospitalAkfqdojPQKHEMDKVO7753-73-13 20:27:00 Test Item Value Reference Range Interpretation Comments MPV (test code = MPV) 7.8 7.4-10.4 [facility] HospitalNixyzvmRAXJVMYLWE7751-16-19 20:27:00 Test Item Value Reference Range Interpretation Comments Platelet (test code = Platelet) 182 133-450 [facility] HospitalZyzmhtyBCMYXQELQX2280-89-89 20:27:00 Test Item Value Reference Range Interpretation Comments RDW (test code = RDW) 13.8 11.5-14.5 [facility] HospitalFxsbiywHKZPDURUDY1835-05-82 20:27:00 Test Item Value Reference Range Interpretation Comments MCH (test code = MCH) 31.2 pg 27.0-31.0 [facility] HospitalYyjkuqaDJTLCPWXHM7520-69-05 20:27:00 Test Item Value Reference Range Interpretation Comments MCV (test code = MCV) 92.5 80.0-94.0 [facility] HospitalEcsfoxwIFXDHBBMBT6704-02-74 20:27:00 Test Item Value Reference Range Interpretation Comments Hgb (test code = Hgb) 12.9 14.0-18.0 [facility] HospitalCirrmghVORYNMCLEG7846-65-93 20:27:00 Test Item Value Reference Range Interpretation Comments Hct (test code = Hct) 38.4 42.0-54.0 [facility] HospitalYtxynudPGFEDUJNEW9642-75-08 20:27:00 Test Item Value Reference Range Interpretation Comments RBC (test code = RBC) 4.15 4.70-6.10 [facility] HospitalBsgedryHPDKFOHGFR5620-37-81 20:27:00 Test Item Value Reference Range Interpretation Comments WBC (test code = WBC) 8.1 3.7-10.4 [facility]2017-08-14 20:27:00 Test Item Value Reference Range Interpretation Comments Magnesium Lvl (test code = Magnesium 1.8 1.8-2.4 Lvl) [facility]2017-08-14 20:27:00 Test Item Value Reference Range Interpretation Comments eGFR (test code = eGFR) 63 [facility]2017-08-14 20:27:00 Test Item Value Reference Range Interpretation Comments Chloride Lvl (test code = Chloride Lvl) 106 95-109 [facility]2017-08-14 20:27:00 Test Item Value Reference Range Interpretation Comments Magnesium Lvl (test code = Magnesium 1.8 1.8-2.4 Lvl) [facility]2017-08-14 20:27:00 Test Item Value Reference Range Interpretation Comments eGFR (test code = eGFR) 63 [facility]2017-08-14 20:27:00 Test Item Value Reference Range Interpretation Comments Chloride Lvl (test code = Chloride Lvl) 106 95-109 [facility]2017-08-14 20:27:00 Test Item Value Reference Range Interpretation Comments Sodium Lvl (test code = Sodium Lvl) 138 135-145 [facility]2017-08-14 20:27:00 Test Item Value Reference Range Interpretation Comments Potassium Lvl (test code = Potassium 3.9 3.5-5.1 Lvl) [facility]2017-08-14 20:27:00 Test Item Value Reference Range Interpretation Comments Sodium Lvl (test code = Sodium Lvl) 138 135-145 [facility]2017-08-14 20:27:00 Test Item Value Reference Range Interpretation Comments CO2 (test code = CO2) 27 24-32 [facility]2017-08-14 20:27:00 Test Item Value Reference Range Interpretation Comments Calcium Lvl (test code = Calcium Lvl) 7.8 8.5-10.5 [facility]2017-08-14 20:27:00 Test Item Value Reference Range Interpretation Comments BUN (test code = BUN) 16 7-22 [facility]2017-08-14 20:27:00 Test Item Value Reference Range Interpretation Comments Creatinine Lvl (test code = Creatinine 1.30 0.50-1.40 Lvl) [facility]2017-08-14 20:27:00 Test Item Value Reference Range Interpretation Comments Glucose Lvl (test code = Glucose Lvl) 103 70-99 [facility]2017-08-14 20:27:00 Test Item Value Reference Range Interpretation Comments AGAP (test code = AGAP) 8.9 10.0-20.0 [facility] HospitalEhadazdEUZXGFVJTL1127-13-61 20:27:00 Test Item Value Reference Range Interpretation Comments Basophils # (test code 0.1 See_Comment [Aut omated message] The = Basophils #) system which generated this result tra nsmitted reference range : <=0.2. The reference r romulo was not used to int erpret this result as normal/abnormal . [facility] HospitalKayufzmMDCBYJLPMH0375-84-74 20:27:00 Test Item Value Reference Range Interpretation Comments Eosinophils (test code = 1.2 See_Comment [A utomated message] The Eosinophils) system which ge nerated this result tra nsmitted reference range : <=4.0. The reference r romulo was not used to int erpret this result as normal/abnormal . [facility] HospitalQiwjnyhYIGWAFSPIN8048-66-65 20:27:00 Test Item Value Reference Range Interpretation Comments Monocytes (test code = Monocytes) 11.1 2.0-12.0 [facility] HospitalWityxzsFELSNOMTEH4722-22-42 20:27:00 Test Item Value Reference Range Interpretation Comments Lymphocytes (test code = Lymphocytes) 23.6 20.0-40.0 [facility]2017-08-14 20:27:00 Test Item Value Reference Range Interpretation Comments Potassium Lvl (test code = Potassium 3.9 3.5-5.1 Lvl) [facility] HospitalBncpidiITABRQZIJT0727-53-76 20:27:00 Test Item Value Reference Range Interpretation Comments Segs-Bands # (test code = Segs-Bands #) 5.1 1.5-8.1 [facility] HospitalGhgjmmbZOFTSPNGTY7673-21-95 20:27:00 Test Item Value Reference Range Interpretation Comments Monocytes # (test code 0.9 See_Comment [Aut omated message] The = Monocytes #) system which generated this result tra nsmitted reference range : <=0.8. The reference r romulo was not used to int erpret this result as normal/abnormal . [facility] HospitalFogcayaVWWDQKFSFA1180-96-05 20:27:00 Test Item Value Reference Range Interpretation Comments Lymphocytes # (test code = Lymphocytes 1.9 1.0-5.5 #) [facility] HospitalJytbcolVOHDVUPSJP6013-97-14 20:27:00 Test Item Value Reference Range Interpretation Comments Eosinophils # (test code 0.1 See_Comment [A utomated message] The = Eosinophils #) system whic h generated this result tra nsmitted reference range : <=0.5. The reference r romulo was not used to int erpret this result as normal/abnormal . [facility] HospitalJhqfjetYBPDCZBIMR1244-95-30 20:27:00 Test Item Value Reference Range Interpretation Comments Basophils (test code = 0.8 See_Comment [Aut omated message] The Basophils) system which ge nerated this result tra nsmitted reference range : <=1.0. The reference r romulo was not used to int erpret this result as normal/abnormal . [facility] HospitalUpjapwwPEMVHRDVUM4360-39-75 20:27:00 Test Item Value Reference Range Interpretation Comments Segs (test code = Segs) 63.3 45.0-75.0 [facility] HospitalQzzqsurRACIZUXLII7435-40-65 20:27:00 Test Item Value Reference Range Interpretation Comments MCHC (test code = MCHC) 33.7 32.0-36.0 [facility] HospitalOiipmdrQJHPPDYGSU6382-56-19 20:27:00 Test Item Value Reference Range Interpretation Comments MPV (test code = MPV) 7.8 7.4-10.4 [facility] HospitalNohkqihHULSEEDJZI6105-63-34 20:27:00 Test Item Value Reference Range Interpretation Comments Platelet (test code = Platelet) 182 133-450 [facility] HospitalMyfqcohVDXYWJJEDQ6009-17-88 20:27:00 Test Item Value Reference Range Interpretation Comments RDW (test code = RDW) 13.8 11.5-14.5 [facility]2017-08-14 20:27:00 Test Item Value Reference Range Interpretation Comments CO2 (test code = CO2) 27 24-32 [facility] HospitalQywrfxtMZEWCZMJIX2171-16-62 20:27:00 Test Item Value Reference Range Interpretation Comments MCH (test code = MCH) 31.2 pg 27.0-31.0 [facility] HospitalLtkbzitIKQOLPBYFN7512-56-06 20:27:00 Test Item Value Reference Range Interpretation Comments MCV (test code = MCV) 92.5 80.0-94.0 [facility] HospitalTypdbfbBJNUGLNSNP6112-44-53 20:27:00 Test Item Value Reference Range Interpretation Comments Hgb (test code = Hgb) 12.9 14.0-18.0 [facility] HospitalKhqbsdjIMXERWGHDR5664-73-44 20:27:00 Test Item Value Reference Range Interpretation Comments Hct (test code = Hct) 38.4 42.0-54.0 [facility] HospitalTquwsswBMSOAALFSM6806-35-18 20:27:00 Test Item Value Reference Range Interpretation Comments RBC (test code = RBC) 4.15 4.70-6.10 [facility] HospitalVkurihoXPCBBUASAK8270-78-94 20:27:00 Test Item Value Reference Range Interpretation Comments WBC (test code = WBC) 8.1 3.7-10.4 [facility]2017-08-14 20:27:00 Test Item Value Reference Range Interpretation Comments Calcium Lvl (test code = Calcium Lvl) 7.8 8.5-10.5 [facility]2017-08-14 20:27:00 Test Item Value Reference Range Interpretation Comments BUN (test code = BUN) 16 7-22 [facility]2017-08-14 20:27:00 Test Item Value Reference Range Interpretation Comments Creatinine Lvl (test code = Creatinine 1.30 0.50-1.40 Lvl) [facility]2017-08-14 20:27:00 Test Item Value Reference Range Interpretation Comments Glucose Lvl (test code = Glucose Lvl) 103 70-99 [facility]2017-08-14 20:27:00 Test Item Value Reference Range Interpretation Comments AGAP (test code = AGAP) 8.9 10.0-20.0 [facility] HospitalGbbcrgjGIXIXIZBXK7907-81-61 20:27:00 Test Item Value Reference Range Interpretation Comments Basophils # (test code 0.1 See_Comment [Aut omated message] The = Basophils #) system which generated this result tra nsmitted reference range : <=0.2. The reference r romulo was not used to int erpret this result as normal/abnormal . [facility] HospitalWobxjxlOVNURROVSN6713-73-23 20:27:00 Test Item Value Reference Range Interpretation Comments Eosinophils (test code = 1.2 See_Comment [A utomated message] The Eosinophils) system which ge nerated this result tra nsmitted reference range : <=4.0. The reference r romulo was not used to int erpret this result as normal/abnormal . [facility] HospitalKhixihnUPATNZDJBS5737-54-76 20:27:00 Test Item Value Reference Range Interpretation Comments Monocytes (test code = Monocytes) 11.1 2.0-12.0 [facility] HospitalXskuxjlOLLRYCVUKV6709-91-55 20:27:00 Test Item Value Reference Range Interpretation Comments Lymphocytes (test code = Lymphocytes) 23.6 20.0-40.0 [facility] HospitalFptojocZLIWRFQCQR5125-84-96 20:27:00 Test Item Value Reference Range Interpretation Comments Segs-Bands # (test code = Segs-Bands #) 5.1 1.5-8.1 [facility] HospitalQadpyeoQZMTJKYRZC8504-68-81 20:27:00 Test Item Value Reference Range Interpretation Comments Monocytes # (test code 0.9 See_Comment [Aut omated message] The = Monocytes #) system which generated this result tra nsmitted reference range : <=0.8. The reference r romulo was not used to int erpret this result as normal/abnormal . [facility] HospitalXkswylyMHYBYCSGSR7482-75-94 20:27:00 Test Item Value Reference Range Interpretation Comments Lymphocytes # (test code = Lymphocytes 1.9 1.0-5.5 #) [facility] HospitalOaqhyztKKWMSIKWLI3447-64-06 20:27:00 Test Item Value Reference Range Interpretation Comments Eosinophils # (test code 0.1 See_Comment [A utomated message] The = Eosinophils #) system whic h generated this result tra nsmitted reference range : <=0.5. The reference r romulo was not used to int erpret this result as normal/abnormal . [facility] HospitalOsyrxtxFEALMQMDRW3906-82-73 20:27:00 Test Item Value Reference Range Interpretation Comments Basophils (test code = 0.8 See_Comment [Aut omated message] The Basophils) system which ge nerated this result tra nsmitted reference range : <=1.0. The reference r romulo was not used to int erpret this result as normal/abnormal . [facility] HospitalTspafjxQCTWJENLDP5870-78-94 20:27:00 Test Item Value Reference Range Interpretation Comments Segs (test code = Segs) 63.3 45.0-75.0 [facility] HospitalJwtgartQYNHBMRPYJ5775-89-34 20:27:00 Test Item Value Reference Range Interpretation Comments MCHC (test code = MCHC) 33.7 32.0-36.0 [facility] HospitalQftzmzlJGGOLTLYTF4516-37-51 20:27:00 Test Item Value Reference Range Interpretation Comments MPV (test code = MPV) 7.8 7.4-10.4 [facility] HospitalIidtsyuOBEBVUBLOT7768-70-26 20:27:00 Test Item Value Reference Range Interpretation Comments Platelet (test code = Platelet) 182 133-450 [facility] HospitalOezmezwWJAOZSLQVY5101-50-05 20:27:00 Test Item Value Reference Range Interpretation Comments RDW (test code = RDW) 13.8 11.5-14.5 [facility] HospitalOnkuicjUBHHKLPEIN9526-16-96 20:27:00 Test Item Value Reference Range Interpretation Comments MCH (test code = MCH) 31.2 pg 27.0-31.0 [facility] HospitalZcoeyeiACHUNACYXB6801-77-90 20:27:00 Test Item Value Reference Range Interpretation Comments MCV (test code = MCV) 92.5 80.0-94.0 [facility] HospitalYqwhkjyOTJFYFUUNM3584-25-81 20:27:00 Test Item Value Reference Range Interpretation Comments Hgb (test code = Hgb) 12.9 14.0-18.0 [facility] HospitalXegzecpYKNDNYRWUF2956-53-38 20:27:00 Test Item Value Reference Range Interpretation Comments Hct (test code = Hct) 38.4 42.0-54.0 [facility] HospitalHvpzhlhRDQQYZORIB4772-09-98 20:27:00 Test Item Value Reference Range Interpretation Comments RBC (test code = RBC) 4.15 4.70-6.10 [facility] HospitalZymbfpmNQYNGCEUDE9790-64-22 20:27:00 Test Item Value Reference Range Interpretation Comments WBC (test code = WBC) 8.1 3.7-10.4 [facility]2017-08-14 20:27:00 Test Item Value Reference Range Interpretation Comments Magnesium Lvl (test code = Magnesium 1.8 1.8-2.4 Lvl) [facility]2017-08-14 20:27:00 Test Item Value Reference Range Interpretation Comments eGFR (test code = eGFR) 63 [facility]2017-08-14 20:27:00 Test Item Value Reference Range Interpretation Comments Chloride Lvl (test code = Chloride Lvl) 106 95-109 [facility]2017-08-14 20:27:00 Test Item Value Reference Range Interpretation Comments Sodium Lvl (test code = Sodium Lvl) 138 135-145 [facility]2017-08-14 20:27:00 Test Item Value Reference Range Interpretation Comments Potassium Lvl (test code = Potassium 3.9 3.5-5.1 Lvl) [facility]2017-08-14 20:27:00 Test Item Value Reference Range Interpretation Comments CO2 (test code = CO2) -32 [facility]2017-08-14 20:27:00 Test Item Value Reference Range Interpretation Comments Calcium Lvl (test code = Calcium Lvl) 7.8 8.5-10.5 [facility]2017-08-14 20:27:00 Test Item Value Reference Range Interpretation Comments BUN (test code = BUN) 16 7-22 [facility]2017-08-14 20:27:00 Test Item Value Reference Range Interpretation Comments Creatinine Lvl (test code = Creatinine 1.30 0.50-1.40 Lvl) [facility]2017-08-14 20:27:00 Test Item Value Reference Range Interpretation Comments Glucose Lvl (test code = Glucose Lvl) 103 70-99 [facility]2017-08-14 20:27:00 Test Item Value Reference Range Interpretation Comments AGAP (test code = AGAP) 8.9 10.0-20.0 [facility] HospitalQfxytdkPSCLTTXFFE9833-56-16 20:27:00 Test Item Value Reference Range Interpretation Comments Basophils # (test code 0.1 See_Comment [Aut omated message] The = Basophils #) system which generated this result tra nsmitted reference range : <=0.2. The reference r romulo was not used to int erpret this result as normal/abnormal . [facility] HospitalFnzfeidEKSYTTIFEL3017-67-27 20:27:00 Test Item Value Reference Range Interpretation Comments Eosinophils (test code = 1.2 See_Comment [A utomated message] The Eosinophils) system which ge nerated this result tra nsmitted reference range : <=4.0. The reference r romulo was not used to int erpret this result as normal/abnormal . [facility] HospitalXthjpnnBVBIJLTQAU0668-60-31 20:27:00 Test Item Value Reference Range Interpretation Comments Monocytes (test code = Monocytes) 11.1 2.0-12.0 [facility] HospitalKqpxafsXWOEHUYQFZ9898-77-19 20:27:00 Test Item Value Reference Range Interpretation Comments Lymphocytes (test code = Lymphocytes) 23.6 20.0-40.0 [facility] HospitalNqzjpmsCYYMTUCVVZ3221-58-71 20:27:00 Test Item Value Reference Range Interpretation Comments Segs-Bands # (test code = Segs-Bands #) 5.1 1.5-8.1 [facility] HospitalTzkdmgkOQRSXSLXQR1449-85-78 20:27:00 Test Item Value Reference Range Interpretation Comments Monocytes # (test code 0.9 See_Comment [Aut omated message] The = Monocytes #) system which generated this result tra nsmitted reference range : <=0.8. The reference r romulo was not used to int erpret this result as normal/abnormal . [facility] HospitalDohbhlpYFKUKOQBUW0767-75-64 20:27:00 Test Item Value Reference Range Interpretation Comments Lymphocytes # (test code = Lymphocytes 1.9 1.0-5.5 #) [facility] HospitalOyyymyjXJGLQBMTYC5201-44-82 20:27:00 Test Item Value Reference Range Interpretation Comments Eosinophils # (test code 0.1 See_Comment [A utomated message] The = Eosinophils #) system whic h generated this result tra nsmitted reference range : <=0.5. The reference r romulo was not used to int erpret this result as normal/abnormal . [facility] HospitalFpbwsspKTWTVEHLXQ7646-60-12 20:27:00 Test Item Value Reference Range Interpretation Comments Basophils (test code = 0.8 See_Comment [Aut omated message] The Basophils) system which ge nerated this result tra nsmitted reference range : <=1.0. The reference r romulo was not used to int erpret this result as normal/abnormal . [facility] HospitalQhwvxczSILSFICHSG0176-62-82 20:27:00 Test Item Value Reference Range Interpretation Comments Segs (test code = Segs) 63.3 45.0-75.0 [facility] HospitalIdylunbUDIDKSSOSI8587-90-01 20:27:00 Test Item Value Reference Range Interpretation Comments MCHC (test code = MCHC) 33.7 32.0-36.0 [facility] HospitalBvjclrgKVLULCPQTZ7175-50-66 20:27:00 Test Item Value Reference Range Interpretation Comments MPV (test code = MPV) 7.8 7.4-10.4 [facility] HospitalEhaaxzdXTBRWJLTXF1276-56-56 20:27:00 Test Item Value Reference Range Interpretation Comments Platelet (test code = Platelet) 182 133-450 [facility] HospitalLbyinbnRLXXFCQPUQ5421-01-33 20:27:00 Test Item Value Reference Range Interpretation Comments RDW (test code = RDW) 13.8 11.5-14.5 [facility] HospitalNobuigsJIKWSCOCDR0282-71-01 20:27:00 Test Item Value Reference Range Interpretation Comments MCH (test code = MCH) 31.2 pg 27.0-31.0 [facility] HospitalNpbhynhDOKLNPNCAR1357-94-55 20:27:00 Test Item Value Reference Range Interpretation Comments MCV (test code = MCV) 92.5 80.0-94.0 [facility] HospitalFhdhvuiPXPROOQIIW1935-04-52 20:27:00 Test Item Value Reference Range Interpretation Comments Hgb (test code = Hgb) 12.9 14.0-18.0 [facility] HospitalZftsbzxSZXLMFAECC5176-94-61 20:27:00 Test Item Value Reference Range Interpretation Comments Hct (test code = Hct) 38.4 42.0-54.0 [facility] HospitalKlccljqMNPLSHNDPS0854-82-42 20:27:00 Test Item Value Reference Range Interpretation Comments RBC (test code = RBC) 4.15 4.70-6.10 [facility] HospitalUkgkenmWKMWDMAEMF9180-69-88 20:27:00 Test Item Value Reference Range Interpretation Comments WBC (test code = WBC) 8.1 3.7-10.4 [facility]2017-08-14 20:27:00 Test Item Value Reference Range Interpretation Comments Magnesium Lvl (test code = Magnesium 1.8 1.8-2.4 Lvl) [facility]2017-08-14 20:27:00 Test Item Value Reference Range Interpretation Comments eGFR (test code = eGFR) 63 [facility]2017-08-14 20:27:00 Test Item Value Reference Range Interpretation Comments Chloride Lvl (test code = Chloride Lvl) 106 95-109 [facility]2017-08-14 20:27:00 Test Item Value Reference Range Interpretation Comments Sodium Lvl (test code = Sodium Lvl) 138 135-145 [facility]2017-08-14 20:27:00 Test Item Value Reference Range Interpretation Comments Potassium Lvl (test code = Potassium 3.9 3.5-5.1 Lvl) [facility]2017-08-14 20:27:00 Test Item Value Reference Range Interpretation Comments CO2 (test code = CO2) 27 24-32 [facility]2017-08-14 20:27:00 Test Item Value Reference Range Interpretation Comments Calcium Lvl (test code = Calcium Lvl) 7.8 8.5-10.5 [facility]2017-08-14 20:27:00 Test Item Value Reference Range Interpretation Comments BUN (test code = BUN) 16 7-22 [facility]2017-08-14 20:27:00 Test Item Value Reference Range Interpretation Comments Creatinine Lvl (test code = Creatinine 1.30 0.50-1.40 Lvl) [facility]2017-08-14 20:27:00 Test Item Value Reference Range Interpretation Comments Glucose Lvl (test code = Glucose Lvl) 103 70-99 [facility]2017-08-14 20:27:00 Test Item Value Reference Range Interpretation Comments AGAP (test code = AGAP) 8.9 10.0-20.0 [facility] HospitalMuzpnfdPTPVMFPGHX0053-12-64 20:27:00 Test Item Value Reference Range Interpretation Comments Basophils # (test code 0.1 See_Comment [Aut omated message] The = Basophils #) system which generated this result tra nsmitted reference range : <=0.2. The reference r romulo was not used to int erpret this result as normal/abnormal . [facility] HospitalCntlqolXXYTWZRHOJ5650-29-87 20:27:00 Test Item Value Reference Range Interpretation Comments Eosinophils (test code = 1.2 See_Comment [A utomated message] The Eosinophils) system which ge nerated this result tra nsmitted reference range : <=4.0. The reference r romulo was not used to int erpret this result as normal/abnormal . [facility]GmrwomeJNVPHBMQMY5309-68-94 20:27:00 Test Item Value Reference Range Interpretation Comments Monocytes (test code = Monocytes) 11.1 2.0-12.0 [facility] HospitalUbyqlnwSZMLFAHZIJ9642-37-36 20:27:00 Test Item Value Reference Range Interpretation Comments Lymphocytes (test code = Lymphocytes) 23.6 20.0-40.0 [facility] HospitalWxyhzhgXLPFHTBHIW1282-67-47 20:27:00 Test Item Value Reference Range Interpretation Comments Segs-Bands # (test code = Segs-Bands #) 5.1 1.5-8.1 [facility] HospitalKfpaeftIEOINXKFKL2348-39-16 20:27:00 Test Item Value Reference Range Interpretation Comments Monocytes # (test code 0.9 See_Comment [Aut omated message] The = Monocytes #) system which generated this result tra nsmitted reference range : <=0.8. The reference r romulo was not used to int erpret this result as normal/abnormal . [facility] HospitalGxmuewyOSQCYFMSJG7972-28-68 20:27:00 Test Item Value Reference Range Interpretation Comments Lymphocytes # (test code = Lymphocytes 1.9 1.0-5.5 #) [facility] HospitalAsxgcarOSTCGNCOWE9289-92-91 20:27:00 Test Item Value Reference Range Interpretation Comments Eosinophils # (test code 0.1 See_Comment [A utomated message] The = Eosinophils #) system whic h generated this result tra nsmitted reference range : <=0.5. The reference r romulo was not used to int erpret this result as normal/abnormal . [facility] HospitalOkjtpljAGFUSZAMCB2398-44-98 20:27:00 Test Item Value Reference Range Interpretation Comments Basophils (test code = 0.8 See_Comment [Aut omated message] The Basophils) system which ge nerated this result tra nsmitted reference range : <=1.0. The reference r romulo was not used to int erpret this result as normal/abnormal . [facility] HospitalTjikpgsKHROPDIMTW7035-47-28 20:27:00 Test Item Value Reference Range Interpretation Comments Segs (test code = Segs) 63.3 45.0-75.0 [facility] HospitalSdaotdwBTIWGHMOVH2751-65-41 20:27:00 Test Item Value Reference Range Interpretation Comments MCHC (test code = MCHC) 33.7 32.0-36.0 [facility] HospitalWkgdvxwCRXVZUJPER1371-49-57 20:27:00 Test Item Value Reference Range Interpretation Comments MPV (test code = MPV) 7.8 7.4-10.4 [facility] HospitalYrlteujFKKBOZZJWK9042-25-42 20:27:00 Test Item Value Reference Range Interpretation Comments Platelet (test code = Platelet) 182 133-450 [facility] HospitalQiyvdpdVAVIEPQCNT0671-98-76 20:27:00 Test Item Value Reference Range Interpretation Comments RDW (test code = RDW) 13.8 11.5-14.5 [facility] HospitalXiypfoeGIPFHXLQME5995-95-95 20:27:00 Test Item Value Reference Range Interpretation Comments MCH (test code = MCH) 31.2 pg 27.0-31.0 [facility] HospitalJlelriaQJQGUQBPIA0532-16-52 20:27:00 Test Item Value Reference Range Interpretation Comments MCV (test code = MCV) 92.5 80.0-94.0 [facility] HospitalVfvvmgfVHDUDEPFZL8529-37-65 20:27:00 Test Item Value Reference Range Interpretation Comments Hgb (test code = Hgb) 12.9 14.0-18.0 [facility] HospitalYlhjkqoGZHVWFXMOP8900-54-70 20:27:00 Test Item Value Reference Range Interpretation Comments Hct (test code = Hct) 38.4 42.0-54.0 [facility] HospitalWidduccIZZXKSZPAQ3450-63-40 20:27:00 Test Item Value Reference Range Interpretation Comments RBC (test code = RBC) 4.15 4.70-6.10 [facility] HospitalOcninksEGWNUULBPE5203-17-16 20:27:00 Test Item Value Reference Range Interpretation Comments WBC (test code = WBC) 8.1 3.7-10.4 [facility]2017-08-14 20:27:00 Test Item Value Reference Range Interpretation Comments Magnesium Lvl (test code = Magnesium 1.8 1.8-2.4 Lvl) [facility]2017-08-14 20:27:00 Test Item Value Reference Range Interpretation Comments eGFR (test code = eGFR) 63 [facility]2017-08-14 20:27:00 Test Item Value Reference Range Interpretation Comments Chloride Lvl (test code = Chloride Lvl) 106 95-109 [facility]2017-08-14 20:27:00 Test Item Value Reference Range Interpretation Comments Sodium Lvl (test code = Sodium Lvl) 138 135-145 [facility]2017-08-14 20:27:00 Test Item Value Reference Range Interpretation Comments Potassium Lvl (test code = Potassium 3.9 3.5-5.1 Lvl) [facility]2017-08-14 20:27:00 Test Item Value Reference Range Interpretation Comments CO2 (test code = CO2) 27 24-32 [facility]2017-08-14 20:27:00 Test Item Value Reference Range Interpretation Comments Calcium Lvl (test code = Calcium Lvl) 7.8 8.5-10.5 [facility]2017-08-14 20:27:00 Test Item Value Reference Range Interpretation Comments BUN (test code = BUN) 16 7-22 [facility]2017-08-14 20:27:00 Test Item Value Reference Range Interpretation Comments Creatinine Lvl (test code = Creatinine 1.30 0.50-1.40 Lvl) [facility]2017-08-14 20:27:00 Test Item Value Reference Range Interpretation Comments Glucose Lvl (test code = Glucose Lvl) 103 70-99 [facility]2017-08-14 20:27:00 Test Item Value Reference Range Interpretation Comments AGAP (test code = AGAP) 8.9 10.0-20.0 [facility] HospitalKlbccnrUOKWVYWUOK9567-89-75 20:27:00 Test Item Value Reference Range Interpretation Comments Basophils # (test code 0.1 See_Comment [Aut omated message] The = Basophils #) system which generated this result tra nsmitted reference range : <=0.2. The reference r romulo was not used to int erpret this result as normal/abnormal . [facility] HospitalAjfqwicSGNIRMVWIH6457-82-14 20:27:00 Test Item Value Reference Range Interpretation Comments Eosinophils (test code = 1.2 See_Comment [A utomated message] The Eosinophils) system which ge nerated this result tra nsmitted reference range : <=4.0. The reference r romulo was not used to int erpret this result as normal/abnormal . [facility] HospitalFsbnxejDVJKCJXLYP5158-65-91 20:27:00 Test Item Value Reference Range Interpretation Comments Monocytes (test code = Monocytes) 11.1 2.0-12.0 [facility] HospitalFxxxyiiJWJNYYHPOQ4711-02-71 20:27:00 Test Item Value Reference Range Interpretation Comments Lymphocytes (test code = Lymphocytes) 23.6 20.0-40.0 [facility] HospitalSxnljfvOAQNLANLPD3850-99-13 20:27:00 Test Item Value Reference Range Interpretation Comments Segs-Bands # (test code = Segs-Bands #) 5.1 1.5-8.1 [facility] HospitalOulwfonZLSIFMPUZS0499-75-34 20:27:00 Test Item Value Reference Range Interpretation Comments Monocytes # (test code 0.9 See_Comment [Aut omated message] The = Monocytes #) system which generated this result tra nsmitted reference range : <=0.8. The reference r romulo was not used to int erpret this result as normal/abnormal . [facility] HospitalOqjphuaNJIZXNEQJL3422-59-53 20:27:00 Test Item Value Reference Range Interpretation Comments Lymphocytes # (test code = Lymphocytes 1.9 1.0-5.5 #) [facility] HospitalEibornjDRVXLVUPDR0912-75-86 20:27:00 Test Item Value Reference Range Interpretation Comments Eosinophils # (test code 0.1 See_Comment [A utomated message] The = Eosinophils #) system whic h generated this result tra nsmitted reference range : <=0.5. The reference r romulo was not used to int erpret this result as normal/abnormal . [facility] HospitalPisnsblRVNEGSMNWW0512-91-38 20:27:00 Test Item Value Reference Range Interpretation Comments Basophils (test code = 0.8 See_Comment [Aut omated message] The Basophils) system which ge nerated this result tra nsmitted reference range : <=1.0. The reference r romulo was not used to int erpret this result as normal/abnormal . [facility] HospitalKzfihvkDKIDCUHNDH3121-06-86 20:27:00 Test Item Value Reference Range Interpretation Comments Segs (test code = Segs) 63.3 45.0-75.0 [facility] HospitalDqujjykUFTIHXPRZU9544-72-25 20:27:00 Test Item Value Reference Range Interpretation Comments MCHC (test code = MCHC) 33.7 32.0-36.0 [facility] HospitalNnbezhwGIAAFPPGPB0738-22-57 20:27:00 Test Item Value Reference Range Interpretation Comments MPV (test code = MPV) 7.8 7.4-10.4 [facility] HospitalQzgbzwvFQJVSIMFPJ7316-40-54 20:27:00 Test Item Value Reference Range Interpretation Comments Platelet (test code = Platelet) 182 133-450 [facility] HospitalBaactvrCKWUSXTHZT3445-29-75 20:27:00 Test Item Value Reference Range Interpretation Comments RDW (test code = RDW) 13.8 11.5-14.5 [facility] HospitalGtcwwvaWEQZKTIQBF5914-45-86 20:27:00 Test Item Value Reference Range Interpretation Comments MCH (test code = MCH) 31.2 pg 27.0-31.0 [facility] HospitalMqidpkxUZMJWGBTGC6541-27-51 20:27:00 Test Item Value Reference Range Interpretation Comments MCV (test code = MCV) 92.5 80.0-94.0 [facility] HospitalObyyozpVCQRTMBVWK1769-24-08 20:27:00 Test Item Value Reference Range Interpretation Comments Hgb (test code = Hgb) 12.9 14.0-18.0 [facility] HospitalOdlbdvzYKFMPEZZKR3702-79-17 20:27:00 Test Item Value Reference Range Interpretation Comments Hct (test code = Hct) 38.4 42.0-54.0 [facility] HospitalWjkyajlWTJAPJBEBK0089-64-82 20:27:00 Test Item Value Reference Range Interpretation Comments RBC (test code = RBC) 4.15 4.70-6.10 [facility] HospitalJcauouqVGWYRZUWIX6048-67-46 20:27:00 Test Item Value Reference Range Interpretation Comments WBC (test code = WBC) 8.1 3.7-10.4 [facility]2017-08-14 20:27:00 Test Item Value Reference Range Interpretation Comments Magnesium Lvl (test code = Magnesium 1.8 1.8-2.4 Lvl) [facility]2017-08-14 20:27:00 Test Item Value Reference Range Interpretation Comments eGFR (test code = eGFR) 63 [facility]2017-08-14 20:27:00 Test Item Value Reference Range Interpretation Comments Chloride Lvl (test code = Chloride Lvl) 106 95-109 [facility]2017-08-14 20:27:00 Test Item Value Reference Range Interpretation Comments Sodium Lvl (test code = Sodium Lvl) 138 135-145 [facility]2017-08-14 20:27:00 Test Item Value Reference Range Interpretation Comments Potassium Lvl (test code = Potassium 3.9 3.5-5.1 Lvl) [facility]2017-08-14 20:27:00 Test Item Value Reference Range Interpretation Comments CO2 (test code = CO2) 27 24-32 [facility]2017-08-14 20:27:00 Test Item Value Reference Range Interpretation Comments Calcium Lvl (test code = Calcium Lvl) 7.8 8.5-10.5 [facility]2017-08-14 20:27:00 Test Item Value Reference Range Interpretation Comments BUN (test code = BUN) 16 7-22 [facility]2017-08-14 20:27:00 Test Item Value Reference Range Interpretation Comments Creatinine Lvl (test code = Creatinine 1.30 0.50-1.40 Lvl) [facility]2017-08-14 20:27:00 Test Item Value Reference Range Interpretation Comments Glucose Lvl (test code = Glucose Lvl) 103 70-99 [facility]2017-08-14 20:27:00 Test Item Value Reference Range Interpretation Comments AGAP (test code = AGAP) 8.9 10.0-20.0 [facility] HospitalDwpdblzJTKXDJTCMF2255-45-36 20:27:00 Test Item Value Reference Range Interpretation Comments Basophils # (test code 0.1 See_Comment [Aut omated message] The = Basophils #) system which generated this result tra nsmitted reference range : <=0.2. The reference r romulo was not used to int erpret this result as normal/abnormal . [facility] HospitalXgrwqciKMWWGMRHTT6456-29-54 20:27:00 Test Item Value Reference Range Interpretation Comments Eosinophils (test code = 1.2 See_Comment [A utomated message] The Eosinophils) system which ge nerated this result tra nsmitted reference range : <=4.0. The reference r romulo was not used to int erpret this result as normal/abnormal . [facility] HospitalWvxvxaxQUOCKJEANQ9248-94-24 20:27:00 Test Item Value Reference Range Interpretation Comments Monocytes (test code = Monocytes) 11.1 2.0-12.0 [facility] HospitalPpqoxwnINPALEQGES1127-18-85 20:27:00 Test Item Value Reference Range Interpretation Comments Lymphocytes (test code = Lymphocytes) 23.6 20.0-40.0 [facility] HospitalFtmknzqSXKUFMVNJY0072-14-25 20:27:00 Test Item Value Reference Range Interpretation Comments Segs-Bands # (test code = Segs-Bands #) 5.1 1.5-8.1 [facility] HospitalPpfpxkhXLZGGEIOBE5578-14-19 20:27:00 Test Item Value Reference Range Interpretation Comments Monocytes # (test code 0.9 See_Comment [Aut omated message] The = Monocytes #) system which generated this result tra nsmitted reference range : <=0.8. The reference r romulo was not used to int erpret this result as normal/abnormal . [facility] HospitalOliaxpnOPOKXJPNSQ9212-85-19 20:27:00 Test Item Value Reference Range Interpretation Comments Lymphocytes # (test code = Lymphocytes 1.9 1.0-5.5 #) [facility] HospitalOllaitiYNTTGRBPFW5577-39-34 20:27:00 Test Item Value Reference Range Interpretation Comments Eosinophils # (test code 0.1 See_Comment [A utomated message] The = Eosinophils #) system whic h generated this result tra nsmitted reference range : <=0.5. The reference r romulo was not used to int erpret this result as normal/abnormal . [facility] HospitalJseinabLQRXWERZPN1619-37-34 20:27:00 Test Item Value Reference Range Interpretation Comments Basophils (test code = 0.8 See_Comment [Aut omated message] The Basophils) system which ge nerated this result tra nsmitted reference range : <=1.0. The reference r romulo was not used to int erpret this result as normal/abnormal . [facility] HospitalTstdgpdKGONGZIKKB1738-72-09 20:27:00 Test Item Value Reference Range Interpretation Comments Segs (test code = Segs) 63.3 45.0-75.0 [facility] HospitalYysfcrgXLBUJCMMUO1994-39-41 20:27:00 Test Item Value Reference Range Interpretation Comments MCHC (test code = MCHC) 33.7 32.0-36.0 [facility] HospitalGkndvgoEYCLPIEQVJ5954-47-15 20:27:00 Test Item Value Reference Range Interpretation Comments MPV (test code = MPV) 7.8 7.4-10.4 [facility] HospitalWfcvruyGYISFMVMIB3649-31-56 20:27:00 Test Item Value Reference Range Interpretation Comments Platelet (test code = Platelet) 182 133-450 [facility] HospitalTzimrrfIQJXXVITET3643-37-22 20:27:00 Test Item Value Reference Range Interpretation Comments RDW (test code = RDW) 13.8 11.5-14.5 [facility] HospitalCnsrpxrUZWIKTWPIP5659-78-12 20:27:00 Test Item Value Reference Range Interpretation Comments MCH (test code = MCH) 31.2 pg 27.0-31.0 [facility] HospitalKgtanpjRGIUCEOQUZ8270-31-14 20:27:00 Test Item Value Reference Range Interpretation Comments MCV (test code = MCV) 92.5 80.0-94.0 [facility] HospitalLlsukxwSKABPQYJFO1229-48-14 20:27:00 Test Item Value Reference Range Interpretation Comments Hgb (test code = Hgb) 12.9 14.0-18.0 [facility] HospitalBcmysizWCVJFMHFTI8492-80-04 20:27:00 Test Item Value Reference Range Interpretation Comments Hct (test code = Hct) 38.4 42.0-54.0 [facility] HospitalGqsutumXADNYXPXDD7609-56-33 20:27:00 Test Item Value Reference Range Interpretation Comments RBC (test code = RBC) 4.15 4.70-6.10 [facility] HospitalBclyjuoYTWOPTRGPY6045-96-46 20:27:00 Test Item Value Reference Range Interpretation Comments WBC (test code = WBC) 8.1 3.7-10.4 [facility] LKQDXDD5911-28-06 14:13:00 Test Item Value Reference Range Interpretation Comments ABO/Rh (test code = ABO/Rh) O POS [facility] KRDUWCC4265-07-21 14:13:00 Test Item Value Reference Range Interpretation Comments Antibody Scrn (test Negative (11/30/16 9:13 code = Antibody Scrn) AM) [facility] [id number] 14:13:00 Test Item Value Reference Range Interpretation Comments A/G Ratio (test code = A/G Ratio) 1.0 0.7-1.6 [facility]2017-08-10 14:13:00 Test Item Value Reference Range Interpretation Comments Globulin (test code = Globulin) 3.7 2.7-4.2 [facility]2017-08-10 14:13:00 Test Item Value Reference Range Interpretation Comments B/C Ratio (test code = B/C Ratio) 15 6-25 [facility]2017-08-10 14:13:00 Test Item Value Reference Range Interpretation Comments Bili Total (test code = Bili Total) 0.9 0.2-1.3 [facility]2017-08-10 14:13:00 Test Item Value Reference Range Interpretation Comments Albumin Lvl (test code = Albumin Lvl) 3.7 3.5-5.0 [facility]2017-08-10 14:13:00 Test Item Value Reference Range Interpretation Comments ALT (test code = ALT) 29 See_Comment [Auto mated message] The system which ge nerated this result transmit nicole reference range : <=65. The reference range was not used to interpr et this result as kira l/abnormal. [facility] [id number] 14:13:00 Test Item Value Reference Range Interpretation Comments AST (test code = AST) 14 See_Comment [Auto mated message] The system which ge nerated this result transmit nicole reference range : <=37. The reference range was not used to interpr et this result as kira l/abnormal. [facility] [id number] 14:13:00 Test Item Value Reference Range Interpretation Comments Alk Phos (test code = Alk Phos) 78 39-136 [facility] [id number] 14:13:00 Test Item Value Reference Range Interpretation Comments Total Protein (test code = Total 7.4 6.4-8.4 Protein) [facility] HospitalLysqhfkKSMKOIYFWN1229-09-99 14:13:00 Test Item Value Reference Range Interpretation Comments PTT (test code = PTT) 29.2 s 22.9-35.8 [facility] HospitalUiihbjfSDVFDKJPYH1193-67-41 14:13:00 Test Item Value Reference Range Interpretation Comments PT (test code = PT) 13.0 s 12.0-14.7 [facility] HospitalZzziwfxOJQDFRHWBT1442-95-93 14:13:00 Test Item Value Reference Range Interpretation Comments INR (test code = INR) 0.96 0.85-1.17 [facility] AND [id number] 14:13:00 Test Item Value Reference Range Interpretation Comments UA Color (test code = UA Color) Ltyellow [facility] AND [id number] 14:13:00 Test Item Value Reference Range Interpretation Comments UA Urobilinogen (test code = UA <=1.0 mg/dL 0.1-1.0 Urobilinogen) [facility] AND [id number] 14:13:00 Test Item Value Reference Range Interpretation Comments UA Mucus (test code = UA Mucus) Few /LPF [facility] AND [id number] 14:13:00 Test Item Value Reference Range Interpretation Comments UA RBC (test code = 2 See_Comment [Automa nicole message] The UA RBC) system which ge nerated this result transmit nicole reference range : <=2. The reference range was not used to interpr et this result as kira l/abnormal. [facility] AND [id number] 14:13:00 Test Item Value Reference Range Interpretation Comments UA Sq Epi (test code = UA Sq Epi) None Seen [facility] AND [id number] 14:13:00 Test Item Value Reference Range Interpretation Comments UA Leuk Est (test code Trace *ABN*(11/30/16 = UA Leuk Est) 9:13 AM) [facility] AND [id number] 14:13:00 Test Item Value Reference Range Interpretation Comments UA Nitrite (test code Negative (11/30/16 9:13 = UA Nitrite) AM) [facility] AND [id number] 14:13:00 Test Item Value Reference Range Interpretation Comments UA WBC (test code = 3 See_Comment [Automa nicole message] The UA WBC) system which ge nerated this result transmit nicole reference range : <=5. The reference range was not used to interpr et this result as kira l/abnormal. [facility] AND [id number] 14:13:00 Test Item Value Reference Range Interpretation Comments UA Glucose (test code = UA Glucose) 500 mg/dL [facility] AND [id number] 14:13:00 Test Item Value Reference Range Interpretation Comments UA Ketones (test code = UA Negative mg/dL Ketones) [facility] AND [id number] 14:13:00 Test Item Value Reference Range Interpretation Comments UA Blood (test code = Negative (11/30/16 9:13 UA Blood) AM) [facility] AND [id number] 14:13:00 Test Item Value Reference Range Interpretation Comments UA Bili (test code = Negative *NA*(11/30/16 UA Bili) 9:13 AM) [facility] AND [id number] 14:13:00 Test Item Value Reference Range Interpretation Comments UA pH (test code = UA pH) 5.0 5.0-8.0 [facility] AND [id number] 14:13:00 Test Item Value Reference Range Interpretation Comments UA Spec Grav (test code = UA Spec Grav) 1.017 [facility] AND [id number] 14:13:00 Test Item Value Reference Range Interpretation Comments UA Protein (test code = UA Negative mg/dL Protein) [facility] AND [id number] 14:13:00 Test Item Value Reference Range Interpretation Comments UA Turbidity (test code = Clear (11/30/16 9:13 UA Turbidity) AM) [facility] HospitalReframed.tv [facility] [id number] 14:13:00 Test Item Value Reference Range Interpretation Comments ABO/Rh (test code = ABO/Rh) O POS [facility] HospitalReframed.tv [facility] [id number] 14:13:00 Test Item Value Reference Range Interpretation Comments Antibody Scrn (test Negative (11/30/16 9:13 code = Antibody Scrn) AM) [facility]2017-08-10 14:13:00 Test Item Value Reference Range Interpretation Comments A/G Ratio (test code = A/G Ratio) 1.0 0.7-1.6 [facility]2017-08-10 14:13:00 Test Item Value Reference Range Interpretation Comments Globulin (test code = Globulin) 3.7 2.7-4.2 [facility]2017-08-10 14:13:00 Test Item Value Reference Range Interpretation Comments B/C Ratio (test code = B/C Ratio) 15 6-25 [facility]2017-08-10 14:13:00 Test Item Value Reference Range Interpretation Comments Bili Total (test code = Bili Total) 0.9 0.2-1.3 [facility]2017-08-10 14:13:00 Test Item Value Reference Range Interpretation Comments Albumin Lvl (test code = Albumin Lvl) 3.7 3.5-5.0 [facility]2017-08-10 14:13:00 Test Item Value Reference Range Interpretation Comments ALT (test code = ALT) 29 See_Comment [Auto mated message] The system which ge nerated this result transmit nicole reference range : <=65. The reference range was not used to interpr et this result as kira l/abnormal. [facility]2017-08-10 14:13:00 Test Item Value Reference Range Interpretation Comments AST (test code = AST) 14 See_Comment [Auto mated message] The system which ge nerated this result transmit nicole reference range : <=37. The reference range was not used to interpr et this result as kira l/abnormal. [facility]2017-08-10 14:13:00 Test Item Value Reference Range Interpretation Comments Alk Phos (test code = Alk Phos) 78 39-136 [facility]2017-08-10 14:13:00 Test Item Value Reference Range Interpretation Comments Total Protein (test code = Total 7.4 6.4-8.4 Protein) [facility] HospitalDurytgvVCVVTGOBSP9906-53-02 14:13:00 Test Item Value Reference Range Interpretation Comments PTT (test code = PTT) 29.2 s 22.9-35.8 [facility] HospitalKruwvogZTHWCPBIGD2514-52-25 14:13:00 Test Item Value Reference Range Interpretation Comments PT (test code = PT) 13.0 s 12.0-14.7 [facility] HospitalXecwlhdHGBYZMIUAX5879-05-85 14:13:00 Test Item Value Reference Range Interpretation Comments INR (test code = INR) 0.96 0.85-1.17 [facility] AND [id number] 14:13:00 Test Item Value Reference Range Interpretation Comments UA Color (test code = UA Color) Ltyellow [facility] AND [id number] 14:13:00 Test Item Value Reference Range Interpretation Comments UA Urobilinogen (test code = UA <=1.0 mg/dL 0.1-1.0 Urobilinogen) [facility] AND [id number] 14:13:00 Test Item Value Reference Range Interpretation Comments UA Mucus (test code = UA Mucus) Few /LPF [facility] AND [id number] 14:13:00 Test Item Value Reference Range Interpretation Comments UA RBC (test code = 2 See_Comment [Automa nicole message] The UA RBC) system which ge nerated this result transmit nicole reference range : <=2. The reference range was not used to interpr et this result as kira l/abnormal. [facility] AND [id number] 14:13:00 Test Item Value Reference Range Interpretation Comments UA Sq Epi (test code = UA Sq Epi) None Seen [facility] AND [id number] 14:13:00 Test Item Value Reference Range Interpretation Comments UA Leuk Est (test code Trace *ABN*(11/30/16 = UA Leuk Est) 9:13 AM) [facility] AND [id number] 14:13:00 Test Item Value Reference Range Interpretation Comments UA Nitrite (test code Negative (11/30/16 9:13 = UA Nitrite) AM) [facility] AND [id number] 14:13:00 Test Item Value Reference Range Interpretation Comments UA WBC (test code = 3 See_Comment [Automa nicole message] The UA WBC) system which ge nerated this result transmit nicole reference range : <=5. The reference range was not used to interpr et this result as kira l/abnormal. [facility] AND [id number] 14:13:00 Test Item Value Reference Range Interpretation Comments UA Glucose (test code = UA Glucose) 500 mg/dL [facility] AND [id number] 14:13:00 Test Item Value Reference Range Interpretation Comments UA Ketones (test code = UA Negative mg/dL Ketones) [facility] AND [id number] 14:13:00 Test Item Value Reference Range Interpretation Comments UA Blood (test code = Negative (11/30/16 9:13 UA Blood) AM) [facility] AND [id number] 14:13:00 Test Item Value Reference Range Interpretation Comments UA Bili (test code = Negative *NA*(11/30/16 UA Bili) 9:13 AM) [facility] AND [id number] 14:13:00 Test Item Value Reference Range Interpretation Comments UA pH (test code = UA pH) 5.0 5.0-8.0 [facility] AND [id number] 14:13:00 Test Item Value Reference Range Interpretation Comments UA Spec Grav (test code = UA Spec Grav) 1.017 [facility] AND [id number] 14:13:00 Test Item Value Reference Range Interpretation Comments UA Protein (test code = UA Negative mg/dL Protein) [facility] AND [id number] 14:13:00 Test Item Value Reference Range Interpretation Comments UA Turbidity (test code = Clear (11/30/16 9:13 UA Turbidity) AM) [facility] [employer] [id number] 14:13:00 Test Item Value Reference Range Interpretation Comments ABO/Rh (test code = ABO/Rh) O POS [facility] [employer] [id number] 14:13:00 Test Item Value Reference Range Interpretation Comments Antibody Scrn (test Negative (11/30/16 9:13 code = Antibody Scrn) AM) [facility] [id number] 14:13:00 Test Item Value Reference Range Interpretation Comments A/G Ratio (test code = A/G Ratio) 1.0 0.7-1.6 [facility] [id number] 14:13:00 Test Item Value Reference Range Interpretation Comments Globulin (test code = Globulin) 3.7 2.7-4.2 [facility]2017-08-10 14:13:00 Test Item Value Reference Range Interpretation Comments B/C Ratio (test code = B/C Ratio) 15 6-25 [facility]2017-08-10 14:13:00 Test Item Value Reference Range Interpretation Comments Bili Total (test code = Bili Total) 0.9 0.2-1.3 [facility]2017-08-10 14:13:00 Test Item Value Reference Range Interpretation Comments Albumin Lvl (test code = Albumin Lvl) 3.7 3.5-5.0 [facility]2017-08-10 14:13:00 Test Item Value Reference Range Interpretation Comments ALT (test code = ALT) 29 See_Comment [Auto mated message] The system which ge nerated this result transmit nicole reference range : <=65. The reference range was not used to interpr et this result as kira l/abnormal. [facility]2017-08-10 14:13:00 Test Item Value Reference Range Interpretation Comments AST (test code = AST) 14 See_Comment [Auto mated message] The system which ge nerated this result transmit nicole reference range : <=37. The reference range was not used to interpr et this result as kira l/abnormal. [facility]2017-08-10 14:13:00 Test Item Value Reference Range Interpretation Comments Alk Phos (test code = Alk Phos) 78 39-136 [facility]2017-08-10 14:13:00 Test Item Value Reference Range Interpretation Comments Total Protein (test code = Total 7.4 6.4-8.4 Protein) [id number] 14:13:00 Test Item Value Reference Range Interpretation Comments PTT (test code = PTT) 29.2 s 22.9-35.8 [facility] [id number] 14:13:00 Test Item Value Reference Range Interpretation Comments PT (test code = PT) 13.0 s 12.0-14.7 [facility] [id number] 14:13:00 Test Item Value Reference Range Interpretation Comments INR (test code = INR) 0.96 0.85-1.17 [facility]2017-08-10 14:13:00 Test Item Value Reference Range Interpretation Comments UA Color (test code = UA Color) Ltyellow [facility] AND [id number] 14:13:00 Test Item Value Reference Range Interpretation Comments UA Urobilinogen (test code = UA <=1.0 mg/dL 0.1-1.0 Urobilinogen) [facility] AND [id number] 14:13:00 Test Item Value Reference Range Interpretation Comments UA Mucus (test code = UA Mucus) Few /LPF [facility] AND [id number] 14:13:00 Test Item Value Reference Range Interpretation Comments UA RBC (test code = 2 See_Comment [Automa nicole message] The UA RBC) system which ge nerated this result transmit nicole reference range : <=2. The reference range was not used to interpr et this result as kira l/abnormal. [facility] AND [id number] 14:13:00 Test Item Value Reference Range Interpretation Comments UA Sq Epi (test code = UA Sq Epi) None Seen [facility] AND [id number] 14:13:00 Test Item Value Reference Range Interpretation Comments UA Leuk Est (test code Trace *ABN*(11/30/16 = UA Leuk Est) 9:13 AM) [facility] AND [id number] 14:13:00 Test Item Value Reference Range Interpretation Comments UA Nitrite (test code Negative (11/30/16 9:13 = UA Nitrite) AM) [facility] AND [id number] 14:13:00 Test Item Value Reference Range Interpretation Comments UA WBC (test code = 3 See_Comment [Automa nicole message] The UA WBC) system which ge nerated this result transmit nicole reference range : <=5. The reference range was not used to interpr et this result as kira l/abnormal. [facility] AND [id number] 14:13:00 Test Item Value Reference Range Interpretation Comments UA Glucose (test code = UA Glucose) 500 mg/dL [facility] AND [id number] 14:13:00 Test Item Value Reference Range Interpretation Comments UA Ketones (test code = UA Negative mg/dL Ketones) [facility] AND [id number] 14:13:00 Test Item Value Reference Range Interpretation Comments UA Blood (test code = Negative (11/30/16 9:13 UA Blood) AM) [facility] [employer] AND [id number] 14:13:00 Test Item Value Reference Range Interpretation Comments UA Bili (test code = Negative *NA*(11/30/16 UA Bili) 9:13 AM) [facility] [employer] AND [id number] 14:13:00 Test Item Value Reference Range Interpretation Comments UA pH (test code = UA pH) 5.0 5.0-8.0 [facility] [employer] [facility] AND [id number] 14:13:00 Test Item Value Reference Range Interpretation Comments UA Spec Grav (test code = UA Spec Grav) 1.017 [facility] [id number] 14:13:00 Test Item Value Reference Range Interpretation Comments UA Protein (test code = UA Negative mg/dL Protein) [facility] [employer] AND [id number] 14:13:00 Test Item Value Reference Range Interpretation Comments UA Turbidity (test code = Clear (11/30/16 9:13 UA Turbidity) AM) [facility] [employer] [id number] 14:13:00 Test Item Value Reference Range Interpretation Comments ABO/Rh (test code = ABO/Rh) O POS [employer] [id number] 14:13:00 Test Item Value Reference Range Interpretation Comments Antibody Scrn (test Negative (11/30/16 9:13 code = Antibody Scrn) AM) [facility] [id number] 14:13:00 Test Item Value Reference Range Interpretation Comments A/G Ratio (test code = A/G Ratio) 1.0 0.7-1.6 [facility] [id number] 14:13:00 Test Item Value Reference Range Interpretation Comments Globulin (test code = Globulin) 3.7 2.7-4.2 [facility] [id number] 14:13:00 Test Item Value Reference Range Interpretation Comments B/C Ratio (test code = B/C Ratio) 15 6-25 [facility] [id number] 14:13:00 Test Item Value Reference Range Interpretation Comments Bili Total (test code = Bili Total) 0.9 0.2-1.3 [facility]2017-08-10 14:13:00 Test Item Value Reference Range Interpretation Comments Albumin Lvl (test code = Albumin Lvl) 3.7 3.5-5.0 [facility]2017-08-10 14:13:00 Test Item Value Reference Range Interpretation Comments ALT (test code = ALT) 29 See_Comment [Auto mated message] The system which ge nerated this result transmit nicole reference range : <=65. The reference range was not used to interpr et this result as kira l/abnormal. [facility]2017-08-10 14:13:00 Test Item Value Reference Range Interpretation Comments AST (test code = AST) 14 See_Comment [Auto mated message] The system which ge nerated this result transmit nicole reference range : <=37. The reference range was not used to interpr et this result as kira l/abnormal. [facility]2017-08-10 14:13:00 Test Item Value Reference Range Interpretation Comments Alk Phos (test code = Alk Phos) 78 39-136 [facility]2017-08-10 14:13:00 Test Item Value Reference Range Interpretation Comments Total Protein (test code = Total 7.4 6.4-8.4 Protein) [facility] [id number] 14:13:00 Test Item Value Reference Range Interpretation Comments PTT (test code = PTT) 29.2 s 22.9-35.8 [facility] [id number] 14:13:00 Test Item Value Reference Range Interpretation Comments PT (test code = PT) 13.0 s 12.0-14.7 [facility] [id number] 14:13:00 Test Item Value Reference Range Interpretation Comments INR (test code = INR) 0.96 0.85-1.17 [facility] AND [id number] 14:13:00 Test Item Value Reference Range Interpretation Comments UA Color (test code = UA Color) Ltyellow [facility] AND [id number] 14:13:00 Test Item Value Reference Range Interpretation Comments UA Urobilinogen (test code = UA <=1.0 mg/dL 0.1-1.0 Urobilinogen) [facility] AND [id number] 14:13:00 Test Item Value Reference Range Interpretation Comments UA Mucus (test code = UA Mucus) Few /LPF [facility] AND [id number] 14:13:00 Test Item Value Reference Range Interpretation Comments UA RBC (test code = 2 See_Comment [Automa nicole message] The UA RBC) system which ge nerated this result transmit nicole reference range : <=2. The reference range was not used to interpr et this result as kira l/abnormal. [facility] AND [id number] 14:13:00 Test Item Value Reference Range Interpretation Comments UA Sq Epi (test code = UA Sq Epi) None Seen [facility] AND [id number] 14:13:00 Test Item Value Reference Range Interpretation Comments UA Leuk Est (test code Trace *ABN*(11/30/16 = UA Leuk Est) 9:13 AM) [facility] AND [id number] 14:13:00 Test Item Value Reference Range Interpretation Comments UA Nitrite (test code Negative (11/30/16 9:13 = UA Nitrite) AM) [facility] AND [id number] 14:13:00 Test Item Value Reference Range Interpretation Comments UA WBC (test code = 3 See_Comment [Automa nicole message] The UA WBC) system which ge nerated this result transmit nicole reference range : <=5. The reference range was not used to interpr et this result as kira l/abnormal. [facility] AND [id number] 14:13:00 Test Item Value Reference Range Interpretation Comments UA Glucose (test code = UA Glucose) 500 mg/dL [facility] AND [id number] 14:13:00 Test Item Value Reference Range Interpretation Comments UA Ketones (test code = UA Negative mg/dL Ketones) [facility] AND [id number] 14:13:00 Test Item Value Reference Range Interpretation Comments UA Blood (test code = Negative (11/30/16 9:13 UA Blood) AM) [facility] AND [id number] 14:13:00 Test Item Value Reference Range Interpretation Comments UA Bili (test code = Negative *NA*(11/30/16 UA Bili) 9:13 AM) [facility] AND [id number] 14:13:00 Test Item Value Reference Range Interpretation Comments UA pH (test code = UA pH) 5.0 5.0-8.0 [facility] AND [id number] 14:13:00 Test Item Value Reference Range Interpretation Comments UA Spec Grav (test code = UA Spec Grav) 1.017 [facility] AND [id number] 14:13:00 Test Item Value Reference Range Interpretation Comments UA Protein (test code = UA Negative mg/dL Protein) [facility] AND [id number] 14:13:00 Test Item Value Reference Range Interpretation Comments UA Turbidity (test code = Clear (11/30/16 9:13 UA Turbidity) AM) [facility] [employer] [id number] 14:13:00 Test Item Value Reference Range Interpretation Comments ABO/Rh (test code = ABO/Rh) O POS [facility] [employer] [id number] 14:13:00 Test Item Value Reference Range Interpretation Comments Antibody Scrn (test Negative (11/30/16 9:13 code = Antibody Scrn) AM) [facility] [id number] 14:13:00 Test Item Value Reference Range Interpretation Comments A/G Ratio (test code = A/G Ratio) 1.0 0.7-1.6 [facility] [id number] 14:13:00 Test Item Value Reference Range Interpretation Comments Globulin (test code = Globulin) 3.7 2.7-4.2 [facility] [id number] 14:13:00 Test Item Value Reference Range Interpretation Comments B/C Ratio (test code = B/C Ratio) 15 6-25 [facility] [id number] 14:13:00 Test Item Value Reference Range Interpretation Comments Bili Total (test code = Bili Total) 0.9 0.2-1.3 [facility] [id number] 14:13:00 Test Item Value Reference Range Interpretation Comments Albumin Lvl (test code = Albumin Lvl) 3.7 3.5-5.0 [facility] [id number] 14:13:00 Test Item Value Reference Range Interpretation Comments ALT (test code = ALT) 29 See_Comment [Auto mated message] The system which ge nerated this result transmit nicole reference range : <=65. The reference range was not used to interpr et this result as kira l/abnormal. [facility]2017-08-10 14:13:00 Test Item Value Reference Range Interpretation Comments AST (test code = AST) 14 See_Comment [Auto mated message] The system which ge nerated this result transmit nicole reference range : <=37. The reference range was not used to interpr et this result as kira l/abnormal. [facility]2017-08-10 14:13:00 Test Item Value Reference Range Interpretation Comments Alk Phos (test code = Alk Phos) 78 39-136 [facility]2017-08-10 14:13:00 Test Item Value Reference Range Interpretation Comments Total Protein (test code = Total 7.4 6.4-8.4 Protein) [facility] [id number] 14:13:00 Test Item Value Reference Range Interpretation Comments PTT (test code = PTT) 29.2 s 22.9-35.8 [facility] [id number] 14:13:00 Test Item Value Reference Range Interpretation Comments PT (test code = PT) 13.0 s 12.0-14.7 [facility] [id number] 14:13:00 Test Item Value Reference Range Interpretation Comments INR (test code = INR) 0.96 0.85-1.17 [facility] AND [id number] 14:13:00 Test Item Value Reference Range Interpretation Comments UA Color (test code = UA Color) Ltyellow [facility] AND [id number] 14:13:00 Test Item Value Reference Range Interpretation Comments UA Urobilinogen (test code = UA <=1.0 mg/dL 0.1-1.0 Urobilinogen) [facility] AND [id number] 14:13:00 Test Item Value Reference Range Interpretation Comments UA Mucus (test code = UA Mucus) Few /LPF [facility] AND [id number] 14:13:00 Test Item Value Reference Range Interpretation Comments UA RBC (test code = 2 See_Comment [Automa nicole message] The UA RBC) system which ge nerated this result transmit nicole reference range : <=2. The reference range was not used to interpr et this result as kira l/abnormal. [facility] AND [id number] 14:13:00 Test Item Value Reference Range Interpretation Comments UA Sq Epi (test code = UA Sq Epi) None Seen [facility] AND [id number] 14:13:00 Test Item Value Reference Range Interpretation Comments UA Leuk Est (test code Trace *ABN*(11/30/16 = UA Leuk Est) 9:13 AM) [facility] AND [id number] 14:13:00 Test Item Value Reference Range Interpretation Comments UA Nitrite (test code Negative (11/30/16 9:13 = UA Nitrite) AM) [facility] AND [id number] 14:13:00 Test Item Value Reference Range Interpretation Comments UA WBC (test code = 3 See_Comment [Automa nicole message] The UA WBC) system which ge nerated this result transmit nicole reference range : <=5. The reference range was not used to interpr et this result as kira l/abnormal. [facility] AND [id number] 14:13:00 Test Item Value Reference Range Interpretation Comments UA Glucose (test code = UA Glucose) 500 mg/dL [facility] AND [id number] 14:13:00 Test Item Value Reference Range Interpretation Comments UA Ketones (test code = UA Negative mg/dL Ketones) [facility] AND [id number] 14:13:00 Test Item Value Reference Range Interpretation Comments UA Blood (test code = Negative (11/30/16 9:13 UA Blood) AM) [facility] AND [id number] 14:13:00 Test Item Value Reference Range Interpretation Comments UA Bili (test code = Negative *NA*(11/30/16 UA Bili) 9:13 AM) [facility] AND [id number] 14:13:00 Test Item Value Reference Range Interpretation Comments UA pH (test code = UA pH) 5.0 5.0-8.0 [facility] AND [id number] 14:13:00 Test Item Value Reference Range Interpretation Comments UA Spec Grav (test code = UA Spec Grav) 1.017 [facility] AND [id number] 14:13:00 Test Item Value Reference Range Interpretation Comments UA Protein (test code = UA Negative mg/dL Protein) [facility] AND [id number] 14:13:00 Test Item Value Reference Range Interpretation Comments UA Turbidity (test code = Clear (11/30/16 9:13 UA Turbidity) AM) [facility] [id number] 14:13:00 Test Item Value Reference Range Interpretation Comments ABO/Rh (test code = ABO/Rh) O POS [facility] [employer] BANK [id number] 14:13:00 Test Item Value Reference Range Interpretation Comments Antibody Scrn (test Negative (11/30/16 9:13 code = Antibody Scrn) AM) [facility] [id number] 14:13:00 Test Item Value Reference Range Interpretation Comments A/G Ratio (test code = A/G Ratio) 1.0 0.7-1.6 [facility] [id number] 14:13:00 Test Item Value Reference Range Interpretation Comments Globulin (test code = Globulin) 3.7 2.7-4.2 [facility] [id number] 14:13:00 Test Item Value Reference Range Interpretation Comments B/C Ratio (test code = B/C Ratio) 15 6-25 [facility] [id number] 14:13:00 Test Item Value Reference Range Interpretation Comments Bili Total (test code = Bili Total) 0.9 0.2-1.3 [facility] [id number] 14:13:00 Test Item Value Reference Range Interpretation Comments Albumin Lvl (test code = Albumin Lvl) 3.7 3.5-5.0 [facility] [id number] 14:13:00 Test Item Value Reference Range Interpretation Comments ALT (test code = ALT) 29 See_Comment [Auto mated message] The system which ge nerated this result transmit nicole reference range : <=65. The reference range was not used to interpr et this result as kira l/abnormal. [facility] [id number] 14:13:00 Test Item Value Reference Range Interpretation Comments AST (test code = AST) 14 See_Comment [Auto mated message] The system which ge nerated this result transmit nicole reference range : <=37. The reference range was not used to interpr et this result as kira l/abnormal. [facility] [id number] 14:13:00 Test Item Value Reference Range Interpretation Comments Alk Phos (test code = Alk Phos) 78 39-136 [facility] [id number] 14:13:00 Test Item Value Reference Range Interpretation Comments Total Protein (test code = Total 7.4 6.4-8.4 Protein) [facility] H[id number] 14:13:00 Test Item Value Reference Range Interpretation Comments PTT (test code = PTT) 29.2 s 22.9-35.8 [facility] [id number] 14:13:00 Test Item Value Reference Range Interpretation Comments PT (test code = PT) 13.0 s 12.0-14.7 [facility] [id number] 14:13:00 Test Item Value Reference Range Interpretation Comments INR (test code = INR) 0.96 0.85-1.17 [facility] AND [id number] 14:13:00 Test Item Value Reference Range Interpretation Comments UA Color (test code = UA Color) Ltyellow [facility] AND [id number] 14:13:00 Test Item Value Reference Range Interpretation Comments UA Urobilinogen (test code = UA <=1.0 mg/dL 0.1-1.0 Urobilinogen) [facility] AND [id number] 14:13:00 Test Item Value Reference Range Interpretation Comments UA Mucus (test code = UA Mucus) Few /LPF [facility] AND [id number] 14:13:00 Test Item Value Reference Range Interpretation Comments UA RBC (test code = 2 See_Comment [Automa nicole message] The UA RBC) system which ge nerated this result transmit nicole reference range : <=2. The reference range was not used to interpr et this result as kira l/abnormal. [facility] AND [id number] 14:13:00 Test Item Value Reference Range Interpretation Comments UA Sq Epi (test code = UA Sq Epi) None Seen [facility] AND [id number] 14:13:00 Test Item Value Reference Range Interpretation Comments UA Leuk Est (test code Trace *ABN*(11/30/16 = UA Leuk Est) 9:13 AM) [facility] AND [id number] 14:13:00 Test Item Value Reference Range Interpretation Comments UA Nitrite (test code Negative (11/30/16 9:13 = UA Nitrite) AM) [facility] AND [id number] 14:13:00 Test Item Value Reference Range Interpretation Comments UA WBC (test code = 3 See_Comment [Automa nicole message] The UA WBC) system which ge nerated this result transmit nicole reference range : <=5. The reference range was not used to interpr et this result as kira l/abnormal. [facility] AND [id number] 14:13:00 Test Item Value Reference Range Interpretation Comments UA Glucose (test code = UA Glucose) 500 mg/dL [facility] AND [id number] 14:13:00 Test Item Value Reference Range Interpretation Comments UA Ketones (test code = UA Negative mg/dL Ketones) [facility] AND [id number] 14:13:00 Test Item Value Reference Range Interpretation Comments UA Blood (test code = Negative (11/30/16 9:13 UA Blood) AM) [facility] AND [id number] 14:13:00 Test Item Value Reference Range Interpretation Comments UA Bili (test code = Negative *NA*(11/30/16 UA Bili) 9:13 AM) [facility] AND [id number] 14:13:00 Test Item Value Reference Range Interpretation Comments UA pH (test code = UA pH) 5.0 5.0-8.0 [facility] AND [id number] 14:13:00 Test Item Value Reference Range Interpretation Comments UA Spec Grav (test code = UA Spec Grav) 1.017 [facility] AND [id number] 14:13:00 Test Item Value Reference Range Interpretation Comments UA Protein (test code = UA Negative mg/dL Protein) [facility] AND [id number] 14:13:00 Test Item Value Reference Range Interpretation Comments UA Turbidity (test code = Clear (11/30/16 9:13 UA Turbidity) AM) [facility] [id number] 14:13:00 Test Item Value Reference Range Interpretation Comments ABO/Rh (test code = ABO/Rh) O POS [facility] [id number] 14:13:00 Test Item Value Reference Range Interpretation Comments Antibody Scrn (test Negative (11/30/16 9:13 code = Antibody Scrn) AM) [facility]2017-08-10 14:13:00 Test Item Value Reference Range Interpretation Comments A/G Ratio (test code = A/G Ratio) 1.0 0.7-1.6 [facility]2017-08-10 14:13:00 Test Item Value Reference Range Interpretation Comments Globulin (test code = Globulin) 3.7 2.7-4.2 [facility]2017-08-10 14:13:00 Test Item Value Reference Range Interpretation Comments B/C Ratio (test code = B/C Ratio) 15 6-25 [facility]2017-08-10 14:13:00 Test Item Value Reference Range Interpretation Comments Bili Total (test code = Bili Total) 0.9 0.2-1.3 [facility]2017-08-10 14:13:00 Test Item Value Reference Range Interpretation Comments Albumin Lvl (test code = Albumin Lvl) 3.7 3.5-5.0 [facility]2017-08-10 14:13:00 Test Item Value Reference Range Interpretation Comments ALT (test code = ALT) 29 See_Comment [Auto mated message] The system which ge nerated this result transmit nicole reference range : <=65. The reference range was not used to interpr et this result as kira l/abnormal. [facility]2017-08-10 14:13:00 Test Item Value Reference Range Interpretation Comments AST (test code = AST) 14 See_Comment [Auto mated message] The system which ge nerated this result transmit nicole reference range : <=37. The reference range was not used to interpr et this result as kira l/abnormal. [facility]2017-08-10 14:13:00 Test Item Value Reference Range Interpretation Comments Alk Phos (test code = Alk Phos) 78 39-136 [facility]2017-08-10 14:13:00 Test Item Value Reference Range Interpretation Comments Total Protein (test code = Total 7.4 6.4-8.4 Protein) [id number] 14:13:00 Test Item Value Reference Range Interpretation Comments PTT (test code = PTT) 29.2 s 22.9-35.8 [id number] 14:13:00 Test Item Value Reference Range Interpretation Comments PT (test code = PT) 13.0 s 12.0-14.7 [facility] [id number] 14:13:00 Test Item Value Reference Range Interpretation Comments INR (test code = INR) 0.96 0.85-1.17 [facility] AND [id number] 14:13:00 Test Item Value Reference Range Interpretation Comments UA Color (test code = UA Color) Ltyellow [facility] AND [id number] 14:13:00 Test Item Value Reference Range Interpretation Comments UA Urobilinogen (test code = UA <=1.0 mg/dL 0.1-1.0 Urobilinogen) [facility] AND [id number] 14:13:00 Test Item Value Reference Range Interpretation Comments UA Mucus (test code = UA Mucus) Few /LPF [facility] AND [id number] 14:13:00 Test Item Value Reference Range Interpretation Comments UA RBC (test code = 2 See_Comment [Automa nicole message] The UA RBC) system which ge nerated this result transmit nicole reference range : <=2. The reference range was not used to interpr et this result as kira l/abnormal. [facility] AND [id number] 14:13:00 Test Item Value Reference Range Interpretation Comments UA Sq Epi (test code = UA Sq Epi) None Seen [facility] AND [id number] 14:13:00 Test Item Value Reference Range Interpretation Comments UA Leuk Est (test code Trace *ABN*(11/30/16 = UA Leuk Est) 9:13 AM) [facility] AND [id number] 14:13:00 Test Item Value Reference Range Interpretation Comments UA Nitrite (test code Negative (11/30/16 9:13 = UA Nitrite) AM) [facility] AND [id number] 14:13:00 Test Item Value Reference Range Interpretation Comments UA WBC (test code = 3 See_Comment [Automa nicole message] The UA WBC) system which ge nerated this result transmit nicole reference range : <=5. The reference range was not used to interpr et this result as kira l/abnormal. [facility] AND [id number] 14:13:00 Test Item Value Reference Range Interpretation Comments UA Glucose (test code = UA Glucose) 500 mg/dL [facility] AND [id number] 14:13:00 Test Item Value Reference Range Interpretation Comments UA Ketones (test code = UA Negative mg/dL Ketones) [facility] AND [id number] 14:13:00 Test Item Value Reference Range Interpretation Comments UA Blood (test code = Negative (11/30/16 9:13 UA Blood) AM) [facility] AND [id number] 14:13:00 Test Item Value Reference Range Interpretation Comments UA Bili (test code = Negative *NA*(11/30/16 UA Bili) 9:13 AM) [facility] AND [id number] 14:13:00 Test Item Value Reference Range Interpretation Comments UA pH (test code = UA pH) 5.0 5.0-8.0 [facility] AND [id number] 14:13:00 Test Item Value Reference Range Interpretation Comments UA Spec Grav (test code = UA Spec Grav) 1.017 [facility] AND [id number] 14:13:00 Test Item Value Reference Range Interpretation Comments UA Protein (test code = UA Negative mg/dL Protein) [facility] AND [id number] 14:13:00 Test Item Value Reference Range Interpretation Comments UA Turbidity (test code = Clear (11/30/16 9:13 UA Turbidity) AM) [facility] [employer] [id number] 14:13:00 Test Item Value Reference Range Interpretation Comments ABO/Rh (test code = ABO/Rh) O POS [facility] [employer] [id number] 14:13:00 Test Item Value Reference Range Interpretation Comments Antibody Scrn (test Negative (11/30/16 9:13 code = Antibody Scrn) AM) [facility] [id number] 14:13:00 Test Item Value Reference Range Interpretation Comments A/G Ratio (test code = A/G Ratio) 1.0 0.7-1.6 [facility] [id number] 14:13:00 Test Item Value Reference Range Interpretation Comments Globulin (test code = Globulin) 3.7 2.7-4.2 [facility]2017-08-10 14:13:00 Test Item Value Reference Range Interpretation Comments B/C Ratio (test code = B/C Ratio) 15 6-25 [facility]2017-08-10 14:13:00 Test Item Value Reference Range Interpretation Comments Bili Total (test code = Bili Total) 0.9 0.2-1.3 [facility]2017-08-10 14:13:00 Test Item Value Reference Range Interpretation Comments Albumin Lvl (test code = Albumin Lvl) 3.7 3.5-5.0 [facility]2017-08-10 14:13:00 Test Item Value Reference Range Interpretation Comments ALT (test code = ALT) 29 See_Comment [Auto mated message] The system which ge nerated this result transmit nicole reference range : <=65. The reference range was not used to interpr et this result as kira l/abnormal. [facility]2017-08-10 14:13:00 Test Item Value Reference Range Interpretation Comments AST (test code = AST) 14 See_Comment [Auto mated message] The system which ge nerated this result transmit nicole reference range : <=37. The reference range was not used to interpr et this result as kira l/abnormal. [facility]2017-08-10 14:13:00 Test Item Value Reference Range Interpretation Comments Alk Phos (test code = Alk Phos) 78 39-136 [facility]2017-08-10 14:13:00 Test Item Value Reference Range Interpretation Comments Total Protein (test code = Total 7.4 6.4-8.4 Protein) [facility] [id number] 14:13:00 Test Item Value Reference Range Interpretation Comments PTT (test code = PTT) 29.2 s 22.9-35.8 [facility] [id number] 14:13:00 Test Item Value Reference Range Interpretation Comments PT (test code = PT) 13.0 s 12.0-14.7 [place] [id number] 14:13:00 Test Item Value Reference Range Interpretation Comments INR (test code = INR) 0.96 0.85-1.17 [facility] AND [id number] 14:13:00 Test Item Value Reference Range Interpretation Comments UA Color (test code = UA Color) Ltyellow [facility] AND [id number] 14:13:00 Test Item Value Reference Range Interpretation Comments UA Urobilinogen (test code = UA <=1.0 mg/dL 0.1-1.0 Urobilinogen) [facility] AND [id number] 14:13:00 Test Item Value Reference Range Interpretation Comments UA Mucus (test code = UA Mucus) Few /LPF [facility] AND [id number] 14:13:00 Test Item Value Reference Range Interpretation Comments UA RBC (test code = 2 See_Comment [Automa nicole message] The UA RBC) system which ge nerated this result transmit nicole reference range : <=2. The reference range was not used to interpr et this result as kria l/abnormal. [facility] AND [id number] 14:13:00 Test Item Value Reference Range Interpretation Comments UA Sq Epi (test code = UA Sq Epi) None Seen [facility] AND [id number] 14:13:00 Test Item Value Reference Range Interpretation Comments UA Leuk Est (test code Trace *ABN*(11/30/16 = UA Leuk Est) 9:13 AM) [facility] AND [id number] 14:13:00 Test Item Value Reference Range Interpretation Comments UA Nitrite (test code Negative (11/30/16 9:13 = UA Nitrite) AM) [facility] AND [id number] 14:13:00 Test Item Value Reference Range Interpretation Comments UA WBC (test code = 3 See_Comment [Automa nicole message] The UA WBC) system which ge nerated this result transmit nicole reference range : <=5. The reference range was not used to interpr et this result as kira l/abnormal. [facility] AND [id number] 14:13:00 Test Item Value Reference Range Interpretation Comments UA Glucose (test code = UA Glucose) 500 mg/dL [facility] AND [id number] 14:13:00 Test Item Value Reference Range Interpretation Comments UA Ketones (test code = UA Negative mg/dL Ketones) [facility] AND [id number] 14:13:00 Test Item Value Reference Range Interpretation Comments UA Blood (test code = Negative (11/30/16 9:13 UA Blood) AM) [facility] [employer] AND [id number] 14:13:00 Test Item Value Reference Range Interpretation Comments UA Bili (test code = Negative *NA*(11/30/16 UA Bili) 9:13 AM) [facility] AND [id number] 14:13:00 Test Item Value Reference Range Interpretation Comments UA pH (test code = UA pH) 5.0 5.0-8.0 [facility] [employer] AND [id number] 14:13:00 Test Item Value Reference Range Interpretation Comments UA Spec Grav (test code = UA Spec Grav) 1.017 [facility] [employer] AND [id number] 14:13:00 Test Item Value Reference Range Interpretation Comments UA Protein (test code = UA Negative mg/dL Protein) [facility] [employer] AND [id number] 14:13:00 Test Item Value Reference Range Interpretation Comments UA Turbidity (test code = Clear (11/30/16 9:13 UA Turbidity) AM) [facility] [employer] [id number] 14:13:00 Test Item Value Reference Range Interpretation Comments ABO/Rh (test code = ABO/Rh) O POS [facility] [employer] [id number] 14:13:00 Test Item Value Reference Range Interpretation Comments Antibody Scrn (test Negative (11/30/16 9:13 code = Antibody Scrn) AM) [facility] [id number] 14:13:00 Test Item Value Reference Range Interpretation Comments A/G Ratio (test code = A/G Ratio) 1.0 0.7-1.6 [facility] [id number] 14:13:00 Test Item Value Reference Range Interpretation Comments Globulin (test code = Globulin) 3.7 2.7-4.2 [facility] [id number] 14:13:00 Test Item Value Reference Range Interpretation Comments B/C Ratio (test code = B/C Ratio) 15 6-25 [facility] [id number] 14:13:00 Test Item Value Reference Range Interpretation Comments Bili Total (test code = Bili Total) 0.9 0.2-1.3 [facility]2017-08-10 14:13:00 Test Item Value Reference Range Interpretation Comments Albumin Lvl (test code = Albumin Lvl) 3.7 3.5-5.0 [facility]2017-08-10 14:13:00 Test Item Value Reference Range Interpretation Comments ALT (test code = ALT) 29 See_Comment [Auto mated message] The system which ge nerated this result transmit nicole reference range : <=65. The reference range was not used to interpr et this result as kira l/abnormal. [facility]2017-08-10 14:13:00 Test Item Value Reference Range Interpretation Comments AST (test code = AST) 14 See_Comment [Auto mated message] The system which ge nerated this result transmit nicole reference range : <=37. The reference range was not used to interpr et this result as kira l/abnormal. [facility]2017-08-10 14:13:00 Test Item Value Reference Range Interpretation Comments Alk Phos (test code = Alk Phos) 78 39-136 [facility]2017-08-10 14:13:00 Test Item Value Reference Range Interpretation Comments Total Protein (test code = Total 7.4 6.4-8.4 Protein) [id number] 14:13:00 Test Item Value Reference Range Interpretation Comments PTT (test code = PTT) 29.2 s 22.9-35.8 [facility] [id number] 14:13:00 Test Item Value Reference Range Interpretation Comments PT (test code = PT) 13.0 s 12.0-14.7 [facility] [id number] 14:13:00 Test Item Value Reference Range Interpretation Comments INR (test code = INR) 0.96 0.85-1.17 [facility] AND [id number] 14:13:00 Test Item Value Reference Range Interpretation Comments UA Color (test code = UA Color) Ltyellow [facility] AND [id number] 14:13:00 Test Item Value Reference Range Interpretation Comments UA Urobilinogen (test code = UA <=1.0 mg/dL 0.1-1.0 Urobilinogen) [facility] AND [id number] 14:13:00 Test Item Value Reference Range Interpretation Comments UA Mucus (test code = UA Mucus) Few /LPF [facility] AND [id number] 14:13:00 Test Item Value Reference Range Interpretation Comments UA RBC (test code = 2 See_Comment [Automa nicole message] The UA RBC) system which ge nerated this result transmit nicole reference range : <=2. The reference range was not used to interpr et this result as kira l/abnormal. [facility] AND [id number] 14:13:00 Test Item Value Reference Range Interpretation Comments UA Sq Epi (test code = UA Sq Epi) None Seen [facility] AND [id number] 14:13:00 Test Item Value Reference Range Interpretation Comments UA Leuk Est (test code Trace *ABN*(11/30/16 = UA Leuk Est) 9:13 AM) [facility] AND [id number] 14:13:00 Test Item Value Reference Range Interpretation Comments UA Nitrite (test code Negative (11/30/16 9:13 = UA Nitrite) AM) [facility] AND [id number] 14:13:00 Test Item Value Reference Range Interpretation Comments UA WBC (test code = 3 See_Comment [Automa nicole message] The UA WBC) system which ge nerated this result transmit nicole reference range : <=5. The reference range was not used to interpr et this result as kira l/abnormal. [facility] AND [id number] 14:13:00 Test Item Value Reference Range Interpretation Comments UA Glucose (test code = UA Glucose) 500 mg/dL [facility] AND [id number] 14:13:00 Test Item Value Reference Range Interpretation Comments UA Ketones (test code = UA Negative mg/dL Ketones) [facility] AND [id number] 14:13:00 Test Item Value Reference Range Interpretation Comments UA Blood (test code = Negative (11/30/16 9:13 UA Blood) AM) [facility] AND [id number] 14:13:00 Test Item Value Reference Range Interpretation Comments UA Bili (test code = Negative *NA*(11/30/16 UA Bili) 9:13 AM) [facility] AND [id number] 14:13:00 Test Item Value Reference Range Interpretation Comments UA pH (test code = UA pH) 5.0 5.0-8.0 [facility] [employer] AND [id number] 14:13:00 Test Item Value Reference Range Interpretation Comments UA Spec Grav (test code = UA Spec Grav) 1.017 [facility] [id number] 14:13:00 Test Item Value Reference Range Interpretation Comments UA Protein (test code = UA Negative mg/dL Protein) [facility] AND [id number] 14:13:00 Test Item Value Reference Range Interpretation Comments UA Turbidity (test code = Clear (11/30/16 9:13 UA Turbidity) AM) [facility] [employer] [id number] 14:13:00 Test Item Value Reference Range Interpretation Comments ABO/Rh (test code = ABO/Rh) O POS [facility] [employer] [id number] 14:13:00 Test Item Value Reference Range Interpretation Comments Antibody Scrn (test Negative (11/30/16 9:13 code = Antibody Scrn) AM) [facility] [id number] 14:13:00 Test Item Value Reference Range Interpretation Comments A/G Ratio (test code = A/G Ratio) 1.0 0.7-1.6 [facility] [id number] 14:13:00 Test Item Value Reference Range Interpretation Comments Globulin (test code = Globulin) 3.7 2.7-4.2 [facility] [id number] 14:13:00 Test Item Value Reference Range Interpretation Comments B/C Ratio (test code = B/C Ratio) 15 6-25 [facility] [id number] 14:13:00 Test Item Value Reference Range Interpretation Comments Bili Total (test code = Bili Total) 0.9 0.2-1.3 [facility] [id number] 14:13:00 Test Item Value Reference Range Interpretation Comments Albumin Lvl (test code = Albumin Lvl) 3.7 3.5-5.0 [facility] [id number] 14:13:00 Test Item Value Reference Range Interpretation Comments ALT (test code = ALT) 29 See_Comment [Auto mated message] The system which ge nerated this result transmit nicole reference range : <=65. The reference range was not used to interpr et this result as kira l/abnormal. [facility]2017-08-10 14:13:00 Test Item Value Reference Range Interpretation Comments AST (test code = AST) 14 See_Comment [Auto mated message] The system which ge nerated this result transmit nicole reference range : <=37. The reference range was not used to interpr et this result as kira l/abnormal. [facility]2017-08-10 14:13:00 Test Item Value Reference Range Interpretation Comments Alk Phos (test code = Alk Phos) 78 39-136 [facility]2017-08-10 14:13:00 Test Item Value Reference Range Interpretation Comments Total Protein (test code = Total 7.4 6.4-8.4 Protein) [id number] 14:13:00 Test Item Value Reference Range Interpretation Comments PTT (test code = PTT) 29.2 s 22.9-35.8 [facility] [id number] 14:13:00 Test Item Value Reference Range Interpretation Comments PT (test code = PT) 13.0 s 12.0-14.7 [facility] [id number] 14:13:00 Test Item Value Reference Range Interpretation Comments INR (test code = INR) 0.96 0.85-1.17 [facility] AND [id number] 14:13:00 Test Item Value Reference Range Interpretation Comments UA Color (test code = UA Color) Ltyellow [facility] AND [id number] 14:13:00 Test Item Value Reference Range Interpretation Comments UA Urobilinogen (test code = UA <=1.0 mg/dL 0.1-1.0 Urobilinogen) [facility] AND [id number] 14:13:00 Test Item Value Reference Range Interpretation Comments UA Mucus (test code = UA Mucus) Few /LPF [facility] AND [id number] 14:13:00 Test Item Value Reference Range Interpretation Comments UA RBC (test code = 2 See_Comment [Automa nicole message] The UA RBC) system which ge nerated this result transmit nicole reference range : <=2. The reference range was not used to interpr et this result as kira l/abnormal. [facility] AND [id number] 14:13:00 Test Item Value Reference Range Interpretation Comments UA Sq Epi (test code = UA Sq Epi) None Seen [facility] AND [id number] 14:13:00 Test Item Value Reference Range Interpretation Comments UA Leuk Est (test code Trace *ABN*(11/30/16 = UA Leuk Est) 9:13 AM) [facility] AND [id number] 14:13:00 Test Item Value Reference Range Interpretation Comments UA Nitrite (test code Negative (11/30/16 9:13 = UA Nitrite) AM) [facility] AND [id number] 14:13:00 Test Item Value Reference Range Interpretation Comments UA WBC (test code = 3 See_Comment [Automa nicole message] The UA WBC) system which ge nerated this result transmit nicole reference range : <=5. The reference range was not used to interpr et this result as kira l/abnormal. [facility] AND [id number] 14:13:00 Test Item Value Reference Range Interpretation Comments UA Glucose (test code = UA Glucose) 500 mg/dL [facility] AND [id number] 14:13:00 Test Item Value Reference Range Interpretation Comments UA Ketones (test code = UA Negative mg/dL Ketones) [facility] AND [id number] 14:13:00 Test Item Value Reference Range Interpretation Comments UA Blood (test code = Negative (11/30/16 9:13 UA Blood) AM) [facility] AND [id number] 14:13:00 Test Item Value Reference Range Interpretation Comments UA Bili (test code = Negative *NA*(11/30/16 UA Bili) 9:13 AM) [facility] AND [id number] 14:13:00 Test Item Value Reference Range Interpretation Comments UA pH (test code = UA pH) 5.0 5.0-8.0 [facility] AND [id number] 14:13:00 Test Item Value Reference Range Interpretation Comments UA Spec Grav (test code = UA Spec Grav) 1.017 [facility] AND [id number] 14:13:00 Test Item Value Reference Range Interpretation Comments UA Protein (test code = UA Negative mg/dL Protein) [facility] AND [id number] 14:13:00 Test Item Value Reference Range Interpretation Comments UA Turbidity (test code = Clear (11/30/16 9:13 UA Turbidity) AM) [facility]
[2022-09-13] MEDS ORDERED: ONDANSETRON 4 MG/2 ML VIAL ONE ×2 (21:31→21:55)
[2022-09-13] MEDS ORDERED: NA CHLORIDE 0.9% 1,000 ML ONE (21:31)
[2022-09-13 21:40] LABS: Absolute Lymphocytes (CBC) 3.6 K/uL (0.7-4.9); Hematocrit 44.2 % (39.6-49.0); Lymphocytes % 24.1 % (15.3-44.8); MCV 86.9 fL (80-100); MPV 8.6 fL (7.6-11.3); RBC Red Blood Cell Count 5.08 M/uL (4.33-5.43)
[2022-09-13] MEDS ORDERED: HYDROMORPHONE HCL 1 MG/ML INJ ONE (21:55)
[2022-09-13 21:58] LABS: Bilirubin Total 1.1 mg/dL (0.2-1.0); Potassium 4.9 mEq/L (3.5-5.1); Protein, Total 7.8 g/dL (6.4-8.2); Troponin High Sensitivity 5.3 pg/mL (<58.9)
--- NOTE | 2022-09-13 22:30 | RAD REPORT ---
EXAM DESCRIPTION: CT - Head Brain Wo Cont - 09/13/2022 10:20 pm CLINICAL HISTORY: Headache COMPARISON: 2016 TECHNIQUE: Computed axial tomography of the head was obtained. IV contrast was not requested. All CT scans are performed using dose optimization technique as appropriate and may include automated exposure control or mA/KV adjustment according to patient size. FINDINGS: An intracranial bleed is not seen The ventricles are normal in caliber No significant hypodense areas within the brain visualized No extra-axial fluid collection is noted. Fluid within the sinuses/ mastoids is not seen IMPRESSION: No acute intracranial abnormality is seen If patient's symptoms persist MRI of the brain would be recommended
--- NOTE | 2022-09-13 23:43 | ER ---
Nurse's Notes [facility] Name: Cirilo Lau Age: 56 yrs Sex: Male : 1965 Arrival Date: 09/13/2022 Time: 21:00 Bed 7 Private MD: Diagnosis: Heat exhaustion, hyperglycemia Presentation: 09/13 21:18 Chief complaint: Spouse and/or significant other states: He was at [employer] today at [employer] the school and he has been vomiting since he got home. He said that he had a headache earlier but he said that it has gone away. He has had a heat stroke in the past. Coronavirus screen: Vaccine status: Patient reports receiving the 2nd dose of the covid vaccine. Ebola Screen: No symptoms or risks identified at this time. Initial Sepsis Screen: Does the patient meet any 2 criteria? No. Patient's initial sepsis screen is negative. Does the patient have a suspected source of infection? No. Patient's initial sepsis screen is negative. Risk Assessment: Do you want to hurt yourself or someone else? Patient reports no desire to harm self or others. Onset of symptoms was September 13, 2022. 21:18 Method Of Arrival: Wheelchair kd3 21:18 Acuity: AIYANA 3 kd3 Triage Assessment: 21:19 General: Appears uncomfortable, Behavior is calm, cooperative. Pain: Denies pain. kd3 Historical: - Allergies: 21:19 Sulfa (Sulfonamide Antibiotics); kd3 - PMHx: 21:19 BLINDNESS; Hypertension; High Cholesterol; Diabetes - IDDM; Rheumatoid Arthritis; kd3 - Immunization history:: Adult Immunizations up to date. - Social history:: Smoking status: Patient denies any tobacco usage or history of. Screenin:26 [facility] ED Fall Risk Assessment (Adult) History of falling in the last 3 months, kl including since admission No falls in past 3 months (0 pts) Confusion or Disorientation No (0 pts) Intoxicated or Sedated No (0 pts) Impaired Gait Yes (1 pt) Mobility Assist Device Used No (0 pt) Altered Elimination No (0 pt) Score/Fall Risk Level 0 - 2 = Low Risk Oriented to surroundings, Maintained a safe environment. Abuse screen: Denies threats or abuse. Nutritional screening: No deficits noted. Tuberculosis screening: No symptoms or risk factors identified. Assessment: 21:25 General: Appears distressed, uncomfortable, ill, Behavior is anxious, restless. Pain: kl Complains of pain in bilateral shoulders Pain currently is 10 out of 10 on a pain scale. Quality of pain is described as burning, aching. Neuro: No deficits noted. Cardiovascular: Denies chest pain. Respiratory: No deficits noted. GI: Pt is actively vomiting bile, undigested food. : No deficits noted. No signs and/or symptoms were reported regarding the genitourinary system. EENT: No deficits noted. No signs and/or symptoms were reported regarding the EENT system. 23:41 Reassessment: Patient appears in no apparent distress at this time. Patient is alert, kl oriented x 3, equal unlabored respirations, skin warm/dry/pink. Patient states feeling better. Patient states symptoms have improved. 09/14 00:22 Reassessment: attempting to discharge patient pt uncooperative reports does not wish to kl go home reports nausea no emesis at this time spouse wishes reevaluation. Vital Signs: 09/13 21:18 BP 180 / 133; Pulse 90; Resp 16; Pulse Ox 99% on R/A; Weight 104.33 kg; kd3 09/14 00:23 BP 147 / 77; Pulse 82; Resp 18; Pulse Ox 99% on R/A; kl ED Course: 09/13 21:01 Patient arrived in ED. ja2 21:14 Zehra Regan MD is Attending Physician. sp3 21:19 Triage completed. kd3 21:19 Arm band placed on right wrist. kd3 21:26 Bed in low position. Call light in reach. Side rails up X2. kl 21:26 No provider procedures requiring assistance completed. Inserted saline lock: 22 gauge kl in left forearm, using aseptic technique. Blood collected. 21:27 CBC with Diff Sent. kl 21:27 CMP Sent. kl 21:27 Lipase Sent. kl 21:27 Troponin HS Sent. kl 21:58 pt restless IV out. kl 21:59 Inserted saline lock: 22 gauge in right hand, using aseptic technique. kl 22:21 CT Head Brain wo Cont In Process Unspecified. EDMS 23:41 No apparent distress. Resting quietly. kl Administered Medications: 21:34 Drug: NS 0.9% IV 1000 ml Route: IV; Rate: 1 bolus; Site: left forearm; kl 22:45 Follow up: IV Status: Completed infusion; IV Intake: 1000ml kl 21:34 Drug: Ondansetron IVP 4 mg Route: IVP; Site: left forearm; kl 09/14 00:58 Follow up: Response: Marked relief of symptoms kl 09/13 21:58 Drug: Ondansetron IVP 4 mg Route: IVP; Site: right hand; kl 23:02 Follow up: Response: No adverse reaction kl :58 Drug: HYDROmorphone IVP 1 mg Route: IVP; Site: right hand; kl 23:02 Follow up: Response: No adverse reaction; Marked relief of symptoms Medication: 09/14 00:58 VIS not applicable for this client. kl Intake: 09/13 22:45 IV: 1000ml; Total: 1000ml. kl Outcome: 23:42 Discharge ordered by MD. rogers 09/14 00:57 Discharged to dc instructions given to spouse kl Condition: improved Discharge instructions given to family, Instructed on discharge instructions, follow up and referral plans. medication usage, Demonstrated understanding of instructions, follow-up care, medications. 01:06 Patient left the ED. kl Signatures: Dispatcher [employer] EDMS Mariama Cantu RN RN Zehra Bae MD MD sp3 Yareli Gonzales Kyli RN RN kd3
--- NOTE | 2022-09-13 23:43 | EDPHYS ---
Physician Documentation [facility] Name: Ciirlo Lau Age: 56 yrs Sex: Male : 1965 Arrival Date: 09/13/2022 Time: 21:00 Bed 7 Private MD: ED Physician Zehra Regan HPI: 09/13 21:20 This 56 yrs old Male presents to ER via Wheelchair with complaints of Poss Dehydration. sp3 21:20 56-year-old male with history of hypertension, hyperlipidemia, type 1 diabetes, sp3 rheumatoid arthritis now presents to the ED with chief complaint vomiting and dehydration. 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 He states he has taken p.o. fluids and has had some urine output but towards the end of the time. He felt weak and dehydrated with some near syncope and now emesis. He also states she has a mild headache. He denies neck pain, chest pain, shortness of breath, back pain, diarrhea, abdominal pain, rash, full syncope, focal neurological deficit, URI symptoms, known sick contacts, travel history, or any other signs or symptoms on review of systems at this time.. Historical: - Allergies: 21:19 Sulfa (Sulfonamide Antibiotics); kd3 - PMHx: 21:19 BLINDNESS; Hypertension; High Cholesterol; Diabetes - IDDM; Rheumatoid Arthritis; kd3 - Immunization history:: Adult Immunizations up to date. - Social history:: Smoking status: Patient denies any tobacco usage or history of. ROS: 21:22 Constitutional: Negative for fever, chills, and weight loss, Eyes: Negative for injury, sp3 pain, redness, and discharge, Neck: Negative for injury, pain, and swelling, Cardiovascular: Negative for chest pain, palpitations, and edema, Respiratory: Negative for shortness of breath, cough, wheezing, and pleuritic chest pain, Back: Negative for injury and pain, MS/Extremity: Negative for injury and deformity, Skin: Negative for injury, rash, and discoloration, Neuro: Negative for headache, weakness, numbness, tingling, and seizure. 21:22 All other systems are negative. Exam: 21:22 Constitutional: This is a well developed, well nourished patient who is awake, alert, sp3 and in no acute distress. Head/Face: Normocephalic, atraumatic. Eyes: Pupils equal round and reactive to light, extra-ocular motions intact. Lids and lashes normal. Conjunctiva and sclera are non-icteric and not injected. Cornea within normal limits. Periorbital areas with no swelling, redness, or edema. ENT: Nares patent. No nasal discharge, no septal abnormalities noted. External auditory canals are clear. Oropharynx with no redness, swelling, or masses, exudates, or evidence of obstruction, uvula midline. Mucous membranes moist. Neck: Trachea midline, no thyromegaly or masses palpated, and no cervical lymphadenopathy. Supple, full range of motion without nuchal rigidity, or vertebral point tenderness. No Meningismus. Chest/axilla: Normal chest wall appearance and motion. Nontender with no deformity. No lesions are appreciated. Cardiovascular: Regular rate and rhythm with a normal S1 and S2. No gallops, murmurs, or rubs. Normal PMI, no JVD. No pulse deficits. Respiratory: Lungs have equal breath sounds bilaterally, clear to auscultation and percussion. No rales, rhonchi or wheezes noted. No increased work of breathing, no retractions or nasal flaring. Abdomen/GI: Soft, non-tender, with normal bowel sounds. No distension or tympany. No guarding or rebound. No evidence of tenderness throughout. Back: No spinal tenderness. No costovertebral tenderness. Full range of motion. Skin: Warm, dry with normal turgor. Normal color with no rashes, no lesions, and no evidence of cellulitis. MS/ Extremity: Pulses equal, no cyanosis. Neurovascular intact. Full, normal range of motion. Neuro: Awake and alert, GCS 15, oriented to person, place, time, and situation. Cranial nerves II-XII grossly intact. Motor strength 5/5 in all extremities. Sensory grossly intact. Cerebellar exam normal. Normal gait. Psych: Awake, alert, with orientation to person, place and time. Behavior, mood, and affect are within normal limits. 23:17 ECG was reviewed by the Attending Physician. EKG demonstrates normal sinus rhythm at 86 sp3 bpm with normal intervals, normal QRS, normal axis, normal ST/T-segment without evidence of acute ischemia. Vital Signs: 21:18 BP 180 / 133; Pulse 90; Resp 16; Pulse Ox 99% on R/A; Weight 104.33 kg; kd3 09/14 00:23 BP 147 / 77; Pulse 82; Resp 18; Pulse Ox 99% on R/A; kl MDM: 09/13 21:18 Patient medically screened. 3 21:22 Data reviewed: vital signs, nurses notes, lab test result(s), EKG. ED course: sp3 58-year-old male with heat exhaustion symptoms along with vomiting. Will assess with laboratory values, EKG and administer IV fluids and Zofran IV. Will reevaluate at that time. Do not believe patient currently needs a head CT or there is any danger of intracranial hemorrhage. Initial blood pressure that was taken was during emesis and is likely not accurate. We will repeat vital signs and ensure they are normal. Any further work-up will be added as indicated.. 23:41 ED course: Patient is feeling much better. Blood pressure is now 147/80. Laboratory sp3 values reviewed and are normal other than hyperglycemia. CO2 is normal with no anion gap. Will discharge patient home with diagnosis heat exhaustion and mild hyperglycemia. Patient follow-up with his PCP as needed. CT scan of the head is also normal.. 09/13 21:20 Order name: CBC with Diff; Complete Time: 23:17 sp3 09/13 21:20 Order name: CMP; Complete Time: 23: sp3 09/13 21:20 Order name: Lipase; Complete Time: 23:17 sp3 09/13 21:20 Order name: Troponin HS; Complete Time: 23: sp3 09/13 21:44 Order name: CT Head Brain wo Cont; Complete Time: 23:17 sp3 09/13 21:20 Order name: EKG; Complete Time: 21:20 3 09/13 21:20 Order name: IV Saline Lock; Complete Time: 21:27 sp3 09/13 21:20 Order name: Labs collected and sent; Complete Time: :27 sp3 09/13 21:20 Order name: EKG - Nurse/Tech; Complete Time: 21:54 sp3 Administered Medications: 21:34 Drug: NS 0.9% IV 1000 ml Route: IV; Rate: 1 bolus; Site: left forearm; kl 22:45 Follow up: IV Status: Completed infusion; IV Intake: 1000ml 21:34 Drug: Ondansetron IVP 4 mg Route: IVP; Site: left forearm; 09/14 00:58 Follow up: Response: Marked relief of symptoms 09/13 21:58 Drug: Ondansetron IVP 4 mg Route: IVP; Site: right hand; kl 23:02 Follow up: Response: No adverse reaction kl 21:58 Drug: HYDROmorphone IVP 1 mg Route: IVP; Site: right hand; kl 23:02 Follow up: Response: No adverse reaction; Marked relief of symptoms kl Disposition Summary: 09/13/22 23:42 Discharge Ordered Location: Home sp3 Condition: Stable sp3 Diagnosis - Heat exhaustion, hyperglycemia sp3 Followup: sp3 - With: Private Physician - When: Upon discharge from the Emergency Department - Reason: Continuance of care Discharge Instructions: - Discharge Summary Sheet sp3 - Heat Exhaustion sp3 Forms: - Medication Reconciliation Form sp3 - Thank You Letter sp3 - Antibiotic Education sp3 - Prescription Opioid Use sp3 Prescriptions: - ondansetron 8 mg Oral tablet,disintegrating - take 1 tablet by ORAL route every 12 hours; 10 tablet; Refills: 0, Product sp3 Selection Permitted Signatures: Dispatcher [employer] Mariama Shha RN RN Zehra Bae MD MD sp3 Tiffanie Topete RN RN kd3
[2022-09-14 01:10] VITALS: O2SAT 99
[2022-09-14 01:11] VITALS: BP 147/77
--- NOTE | 2022-09-14 12:32 | EKG ---
Test Date: 2022-09-13 Test Time: 21:51:46 Flaking Roll Operator: LEANA MEASUREMENT RESULTS: Intervals: Rate: 86 IA: 172 QRSD: 118 QT: 392 QTc: 469 [place]: P: 72 IA: 172 QRS: 80 T: 64 INTERPRETIVE STATEMENTS: Normal sinus rhythm Nonspecific intraventricular conduction delay Borderline ECG Compared to ECG 06/23/2018 18:21:43 Intraventricular conduction delay now present Right-axis deviation no longer present Electronically Signed On 09-14-22 12:31:37 CDT by Michael William
== END 2022-09-14 01:06 | disposition home or self-care (01) ==
LOC: ER 21:00
DX: E11.65 Type 2 diabetes mellitus with hyperglycemia (principal); T67.5XXA Heat exhaustion, unspecified, initial encounter; I10 Essential (primary) hypertension; Z88.2 Allergy status to sulfonamides
CPT/HCPCS: 93005; 85025; 36415; 84484; 83690; 80053; 70450; 99284; J1170; J2405 ×2; J7030